=== PATIENT | female | born 1955 | race Caucasian/White ===

== ENCOUNTER 2023-03-11 10:48 | Day surgery (SDC) | payer MEDICARE, OTHER, SELFPAY ==
--- NOTE | 2023-03-11 11:08 | EXP.GEN.HP ---
HPI HPI HPI: Patient is a 68-year-old female with history of dysphagia. She states that she has previously had her esophagus stretched at an outside facility. She states that when she eats chicken it gives me fits . She has symptoms previously consistent with self-limited food impaction. However when she was eating chicken on Saturday evening on 03/09/2023 she had symptoms of esophageal obstruction secondary to food impaction. This persisted. She did not seek medical attention. Ultimately she states that she had been unable to swallow even water and therefore she presented to her primary care provider's office this morning on 03/11/2023. Due to her symptoms of esophageal obstruction secondary to food impaction surgery was contacted. [facility] Disclaimer: The information contained in this section may have been updated after the patient was seen, as this information can be updated by other users. Medical History (Updated 03/11/23 @ 11:11 by Henry Reilly MD) Colon cancer Hypertension IBS (irritable bowel syndrome) Migraine Surgical History (Updated 09/13/22 @ 14:57 by Meg Nair) History of colon resection History of hand surgery History of hip replacement History of tubal ligation Family History (Updated 09/13/22 @ 14:57 by Meg Nair) Diabetes Cancer Social History (Updated 09/13/22 @ 14:58 by Meg Nair) Smoking Status: Never smoker alcohol intake: never current occupational status: retired Travel in the last 8 weeks: None marital status: Meds Home Medications and Allergies Home Medications Medication Instructions Recorded Confirmed Type amlodipine 10 mg tablet 10 mg PO DAILY BP 09/13/22 03/11/23 History dicyclomine 10 mg capsule 10 mg PO QID . 09/13/22 03/11/23 History lisinopril 20 mg tablet 10 mg PO DAILY BP 09/13/22 03/11/23 History potassium chloride 20 mEq/15 mL 20 meq PO DAILY Supplement 09/13/22 03/11/23 History oral liquid ibuprofen 400 mg tablet 400 mg PO Q6H PRN Pain 03/11/23 03/11/23 History omeprazole 10 mg capsule,delayed 10 mg PO DAILY Reflux/Acid reflux 03/11/23 03/11/23 History release tramadol 50 mg tablet 40 mg PO DAILY PRN . 03/11/23 03/11/23 History New Prescriptions to Start Prescriptions: Allergies Allergy/AdvReac Type Severity Reaction Status Date / Time morphine AdvReac Verified 03/11/23 11:05 Exam Constitutional Constitutional: no acute distress *Routine HEENT Exam Head: Present normocephalic Eye: Present EOMI and PERRL ENT: Present mucous membranes moist *Routine Neck Exam Neck: Present supple; Absent lymphadenopathy *Routine Respiratory Exam Respiratory: Present CTA bilaterally *Routine Cardiovascular Exam Cardiovascular: Present RRR *Routine Abdominal Exam Abdominal: Present soft and normoactive bowel sounds; Absent tenderness *Routine Rectal Exam Rectal:: deferred *Routine Genitalia Exam Genitalia:: deferred *Routine Extremities Exam Extremities: Absent cyanosis, clubbing or edema *Routine Skin Exam Skin: Present warm; Absent rash *Routine Neurological Exam Neurological: Present alert and oriented X3 Assessment and Plan *Assessment and plan (1) Esophageal obstruction due to food impaction: Status: Acute Category: Medical Code(s): K22.2 - Esophageal obstruction; T18.128A - Food in esophagus causing other injury, initial encounter Plan Plan to proceed with emergent flexible endoscopy. I explained to her the nature and details of the proposed procedure along with associated risks and expected outcome. I did explain to her that given the long duration of her symptoms that she is at higher risk of perforation as well as the need for more invasive techniques in addition to potential need for transfer for surgical intervention. She understands and agrees to proceed.
[2023-03-11 11:12] VITALS: BP 158/95; PULSE 94; RESP 18; O2SAT 95; BMI 30.3
--- NOTE | 2023-03-11 12:05 | P.PCN_ITS ---
Procedure: Date: 03/11/23 Patient Date of :: 1955 Procedure Performed:: Esophagogastroduodenoscopy for esophageal obstruction secondary to food impaction Indications:: Patient is a 68-year-old female who has had problems with self-limited dysphagia from food impaction in the past. She previously has had her esophagus stretched . She presented to her primary care provider's office this morning on 03/11/2023 with symptoms of persistent esophageal obstruction secondary to food impaction since 03/09/2023. Surgery was contacted and arrangements were made for emergent upper endoscopy. Performing Provider:: Henry Reilly MD Referring Provider:: Neal Gonzalez MD Sedation:: MAC sedation Procedure:: Patient was taken to endoscopy procedure room. She was positioned in lateral decubitus position. Adequate intravenous sedation was achieved with anesthesia titration of propofol. Olympus endoscope was inserted via the oropharynx. Esophagus was cannulated. There were findings of presbyesophagus secondary to likely some esophageal dysmotility. There was some saliva and secretions which were suctioned free. Meat food bolus was encountered impacted at about 30 cm. The endoscope was withdrawn. The E-suction device was secured to the endoscope. Endoscope was reinserted. Advancement of the endoscope with the E-suction was slightly more challenging given the presbyesophagus. It was felt that it was unable to be advanced to the fluid bolus. The endoscope was then withdrawn and plan was made for retrieval using Hinton net. The suction device was removed from the endoscope and the endoscope was reinserted. This time the food bolus had passed into the gastric lumen. The endoscope was easily advanced into the gastric lumen. Retroflexion revealed no evidence of any hiatal hernia. Esop hagus was then once again surveyed and there was no evidence of any residual obstruction and no obvious perforation. There were erosions at the gastroesophageal junction at approximately 34 cm from the incisors due to the food impaction. Stomach was desufflated and the endoscope was withdrawn. Findings:: Presbyesophagus Gastroesophageal junction at approximately 34 cm with food impaction Focal erosive esophagitis at the gastroesophageal junction Recommendations:: Liquid diet for 24 hours. Continue proton pump inhibitors. Complications:: None immediately apparent Estimated blood obtained (mL): 2
[2023-03-11 12:10] VITALS: BP 150/84; PULSE 94; RESP 17; TEMP 36.2; O2SAT 99
[2023-03-11 12:20] VITALS: BP 151/91; PULSE 95; RESP 16; O2SAT 95
[2023-03-11 12:30] VITALS: BP 151/84; PULSE 89; RESP 16; O2SAT 95
[2023-03-11 12:40] VITALS: BP 160/91; PULSE 85; RESP 17; O2SAT 95
== END 2023-03-11 12:40 | disposition home or self-care (01) ==
PROVIDERS: PCP Family Medicine; Visit Provider Surgery
PROC: 0DJ08ZZ Inspection of Upper Intestinal Tract, Via Natural or Artificial Opening Endoscopic (ICD-10-PCS; CPT 43235; principal; 2023-03-11 11:15)
DX: K22.2 Esophageal obstruction (principal); T18.128A Food in esophagus causing other injury, initial encounter
CPT/HCPCS: 43247

== ENCOUNTER 2023-05-03 09:01 | Day surgery (SDC) | payer MEDICARE, SELFPAY ==
[2023-05-02 09:56] VITALS: BMI 31.1
[2023-05-03] VITALS (7 sets, daily range): BP systolic 127–141; BP diastolic 73–89; PULSE 67–92; RESP 18; TEMP 36.2–37.1; O2SAT 93–98
--- NOTE | 2023-05-03 09:57 | EXP.ANES.CKL ---
[facility] Disclaimer: The information contained in this section may have been updated after the patient was seen, as this information can be updated by other users. Medical History Allergies Colon cancer History of COVID-19 Hypertension IBS (irritable bowel syndrome) Migraine Rectal cancer Surgical History History of colon resection History of hand surgery History of hip replacement History of tubal ligation Family History Other Cancer Diabetes Social History Smoking Status: Never smoker alcohol intake: never substance use type: denies use current occupational status: retired Travel in the last 8 weeks: None marital status: caffeine: No [facility] Anesthesia Checklist Patient Identification Patient Identification: Arm Band Structural Data Admitted From: Home Planned Operative Procedure/s: EGD Consent for Planned Operative Procedure(s) Verified: Yes Verified Documents: Surgical Consent and History and Physical NPO Status Verified Time NPO: 00:00 Additional verifications Anesthesia Reactions: No Airway Assessment C-Spine Mobility Assessed: Yes TMJ Mobility Assessed: Yes Dentition: Edentulous Neurological Assessment Level of Consciousness: Awake and Alert Anesthesia Plan Anesthesia Risk discussed: Yes Anesthesia Plan: Verified ASA Class: II Anesthesia Type: MAC
--- NOTE | 2023-05-03 10:14 | EXP.GEN.HP ---
HPI HPI HPI: Patient is a pleasant 68-year-old female who had prior history of food impaction. She has previously had her esophagus stretched . She had presented to her primary care provider's office on 03/11/2023 with symptoms of persistent esophageal obstruction secondary to food impaction for a couple of days. She underwent emergent EGD on 03/11/2023 at which time she was found to have findings of presbyesophagus, gastroesophageal junction at 34 cm with food impaction, focal erosive esophagitis. Plan was for follow-up EGD. [facility] Disclaimer: The information contained in this section may have been updated after the patient was seen, as this information can be updated by other users. Medical History (Updated 05/03/23 @ 10:15 by Henry Reilly MD) Allergies Colon cancer History of COVID-19 Hypertension IBS (irritable bowel syndrome) Migraine Rectal cancer Surgical History History of colon resection History of hand surgery History of hip replacement History of tubal ligation Family History Diabetes Cancer Social History (Updated 05/03/23 @ 09:58 by Mitchell Teague CRNA) Smoking Status: Never smoker alcohol intake: never substance use type: denies use current occupational status: retired Travel in the last 8 weeks: None marital status: caffeine: No Meds Home Medications and Allergies Home Medications Medication Instructions Recorded Confirmed Type amlodipine 10 mg tablet 10 mg PO DAILY BP 09/13/22 05/02/23 History dicyclomine 10 mg capsule 10 mg PO QID . 09/13/22 05/02/23 History lisinopril 20 mg tablet 10 mg PO DAILY BP 09/13/22 05/02/23 History potassium chloride 20 mEq/15 mL 20 meq PO DAILY Supplement 09/13/22 05/02/23 History oral liquid ibuprofen 400 mg tablet 400 mg PO Q6H PRN Pain 03/11/23 05/02/23 History omeprazole 10 mg capsule,delayed 40 mg PO DAILY Reflux/Acid reflux 03/11/23 05/02/23 History release tramadol 50 mg tablet 40 mg PO DAILY PRN . 03/11/23 05/02/23 History New Prescriptions to Start Prescriptions: Allergies Allergy/AdvReac Type Severity Reaction Status Date / Time morphine AdvReac Verified 05/03/23 09:34 Exam Data for Last 24 hours Vital signs and Labs for Last 24 Hours: Temp Pulse Resp BP Pulse Ox 98.8 F 76 18 141/75 H 98 05/03/23 09:35 05/03/23 09:35 05/03/23 09:35 05/03/23 09:35 05/03/23 09:35 I & O for Last 24 hours: Intake & Output 04/30/23 05/01/23 05/02/23 05/03/23 11:59 11:59 11:59 11:59 Weight 170 lb Constitutional Constitutional: no acute distress *Routine HEENT Exam Head: Present normocephalic Eye: Present EOMI and PERRL ENT: Present mucous membranes moist *Routine Neck Exam Neck: Present supple; Absent lymphadenopathy *Routine Respiratory Exam Respiratory: Present CTA bilaterally *Routine Cardiovascular Exam Cardiovascular: Present RRR *Routine Abdominal Exam Abdominal: Present soft and normoactive bowel sounds; Absent tenderness *Routine Rectal Exam Rectal:: deferred *Routine Genitalia Exam Genitalia:: deferred *Routine Extremities Exam Extremities: Absent cyanosis, clubbing or edema *Routine Skin Exam Skin: Present warm; Absent rash *Routine Neurological Exam Neurological: Present alert and oriented X3 Assessment and Plan *Assessment and plan (1) Dysphagia: Status: Acute Category: Medical Code(s): R13.10 - Dysphagia, unspecified Plan EGD with possible dilatation
--- NOTE | 2023-05-03 10:38 | HMH.SCOPE ---
Procedure: Date: 05/03/23 Patient Date of :: 1955 Procedure Performed:: Esophagogastroduodenoscopy with biopsy and dilatation using pneumatic dilator Indications:: Patient is a pleasant 68-year-old female who had prior history of food impaction.? She has previously had her esophagus stretched .? She had presented to her primary care provider's office on 03/11/2023 with symptoms of persistent esophageal obstruction secondary to food impaction for a couple of days.? She underwent emergent EGD on 03/11/2023 at which time she was found to have findings of presbyesophagus, gastroesophageal junction at 34 cm with food impaction, focal erosive esophagitis.? Plan was for follow-up EGD. Performing Provider:: Henry Reilly MD Referring Provider:: Evangelista Infante Sedation:: MAC sedation Procedure:: Patient history was obtained and appropriate physical examination was performed. Patient's medications and allergies were reviewed. Informed consent was obtained after explaining the benefits, alternatives, and risks of the procedure including, but not limited to, bleeding, perforation, missed lesions, and adverse reaction to anesthesia medications. Patient was transported to endoscopy procedure room. Patient was connected to monitoring devices. Throughout the procedure the patient's blood pressure, pulse, and oxygen saturations were monitored continuously. Patient identification and planned procedure were verified by the staff. Patient was positioned in lateral decubitus position. Attention was first turned to upper endoscopy. Olympus endoscope was inserted via the oropharynx. There was some tortuosity to the esophagus consistent with esophageal dysmotility. This seemed more pronounced at the distal esophagus. Gastroesophageal junction was encountered at approximately 34 cm. There was no evidence of any definite Schatzki's ring. Stomach was cannulated and insufflated. There was some minor diffuse gastropathy. There were some prominent regional areas of mucosa in the prepyloric location. Multiple biopsies were obtained. Pylorus was traversed and the duodenum appeared normal. Several biopsies were obtained at the gastroesophageal junction. As previously stated, there did not appear to be significant stricture but more tortuosity at the distal esophagus. However, given her history with ongoing symptoms of dysphagia this was dilated sequentially using the elation balloon dilator to 20 mm. Stomach was desufflated and the endoscope was withdrawn. Findings:: Gastroesophageal junction at 34 cm Findings of probable significant esophageal dysmotility Diffuse gastropathy Prominent hypertrophic prepyloric mucosa, biopsied Recommendations:: Continue medical management. Follow-up on biopsies Complications:: None immediate Estimated blood obtained (mL): 1 Colonoscopy Component Colonoscopy Component Was a colonoscopy performed during today's procedure?: No
== END 2023-05-03 11:30 | disposition home or self-care (01) ==
PROVIDERS: PCP Family Medicine; Visit Provider Surgery
PROC: 0DJ08ZZ Inspection of Upper Intestinal Tract, Via Natural or Artificial Opening Endoscopic (ICD-10-PCS; CPT 43235; principal; 2023-05-03 12:30)
DX: R13.10 Dysphagia, unspecified (principal); K31.9 Disease of stomach and duodenum, unspecified; K29.50 Unspecified chronic gastritis without bleeding; K21.00 Gastro-esophageal reflux disease with esophagitis, without bleeding
CPT/HCPCS: 43239; 43249; 88305; 88342; C1726

== ENCOUNTER 2024-05-04 14:54 | Outpatient (CLI) | payer MEDICARE, MEDICAID, SELFPAY ==
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
== END 2024-05-04 23:59 | disposition home or self-care (01) ==
LOC: RAD 14:55
PROVIDERS: PCP Family Medicine; Visit Provider Nurse Practitioner Family
DX: R22.32 Localized swelling, mass and lump, left upper limb (principal)
CPT/HCPCS: 76882

== ENCOUNTER 2024-05-20 13:15 | Outpatient (CLI) | payer MEDICARE, MEDICAID, SELFPAY ==
--- NOTE | 2024-05-20 14:31 | MM_ITS ---
PROCEDURE INFORMATION: Exam: MG Bilateral Screening 3D Mammography Exam date and time: 05/20/2024 2:22 PM Age: 69 years old Clinical indication: Screening examination TECHNIQUE: Imaging protocol: Bilateral Screening tomosynthesis and 2D mammography including computer-aided detection (CAD) when performed. COMPARISON: MG MM MAMMO DIGITAL BONY SCREEN BILAT 05/16/2023 1:36 PM FINDINGS: MAMMOGRAPHY: Breast composition: There are scattered areas of fibroglandular density. Mass: None. Architectural distortion: None. Calcifications: No suspicious calcifications. Asymmetric density: None. Skin thickening: None. Axillary adenopathy: None. IMPRESSION: No mammographic evidence of malignancy. Annual screening is recommended unless otherwise clinically indicated. ASSESSMENT: BI-RADS Category 1: Negative
--- NOTE | 2024-05-20 14:31 | XR_ITS ---
FINAL REPORT TECHNIQUE: Bone densitometry calculations of the lumbar spine and left hip were obtained. CLINICAL HISTORY: OSTEOPENIA FINDINGS: Using L1-4, the bone mineral density of the spine is 0.927 g/cm2, corresponding to T-score of -1.1 but is likely falsely elevated secondary to hypertrophic changes. Using the 1/3 radius, the bone mineral density of the radius is 0.454 g/cm2, corresponding to a T-score of -4.0. NOTE: T-score: Standard deviation compared with peak bone mass of young adult mean. *Following the recommendations of the International Society of Bone Densitometry, classification of hip BMD is based on the lower of two T-scores; total hip or femoral neck. IMPRESSION: Osteoporosis: Lowest T-score is at or below -2.5. This patient's T-score meets the World Health Organization criteria for osteoporosis. Reviewed, Interpreted and Dictated by Henry Monge III, MD Transcribed by Eleonora Wheeler Authenticated and [facility]
[2024-05-20 14:59] LABS: Alanine Aminotransferase 19 U/L (12-78); Albumin Level 3.9 g/dl (3.5-5.0); Albumin/Globulin Ratio 1.3 (1.1-1.8); Alkaline Phosphatase 77 U/L (38-126); Anion Gap 6.5 mEq/L (5-15); Aspartate Amino Transferase 31 U/L (14-36); Bilirubin,Total 0.5 mg/dl (0.2-1.3); Blood Urea Nitrogen 18 mg/dl (7-17); Calcium 9.2 mg/dl (8.4-10.2); Carbon Dioxide 30 mmol/L (22.0-30.0); Chloride 106 mmol/L (98-107); Chol/HDL Ratio 4.5 (1-3.5); Cholesterol 264 mg/dl (140-200); Estimated Glomerular Filt Rate 83 ml/min (>60); GFR (African American) 100 ML/MIN (>60); Globulin 3.1 g/dL (1.3-3.2); Glucose 88 mg/dl (74-100); HDL Cholesterol 59 mg/dl (40-60); Potassium 3.5 mmoL/L (3.5-5.1); Sodium 139 mmol/L (136-145); Triglycerides 124 mg/dl (30-150); VLDL Cholesterol 25 mg/dL (0-40)
[2024-05-20 15:10] LABS: Direct LDL Cholesterol 134.64 mg/dL (100-129)
== END 2024-05-20 23:59 | disposition home or self-care (01) ==
PROVIDERS: PCP Family Medicine; Visit Provider Nurse Practitioner Family
DX: I10 Essential (primary) hypertension (principal); E78.5 Hyperlipidemia, unspecified; Z12.31 Encounter for screening mammogram for malignant neoplasm of breast; M85.89 Other specified disorders of bone density and structure, multiple sites
CPT/HCPCS: 36415; 77063; 77067; 77080; 80053; 80061

== ENCOUNTER 2025-05-07 07:17 | Day surgery (SDC) | payer MEDICARE, MEDICAID, SELFPAY ==
[2025-05-03 16:11] VITALS: BMI 32.0
--- NOTE | 2025-05-07 05:47 | EXP.GEN.HP ---
HPI HPI HPI: Patient is a 70-year-old female from [place]. She presents for colonoscopy. I had previously seen her for esophageal obstruction secondary to food impaction and she required emergent EGD on 03/11/2023. She did have a follow-up EGD as an outpatient on 05/03/2023 which revealed findings of significant esophageal dysmotility. She has a history of colon cancer. She states that she had colon cancer diagnosed seemingly at the rectosigmoid region in 2019 on colonoscopy at outside facility. Exact details are unknown. She states that she was told that this was about the size of a pea and in the rectum invading into the colon. She did undergo apparent resection. Details are unknown. She subsequently has had a colonoscopy at outside facility which was reportedly unremarkable. Details are unknown. Presents for surveillance colonoscopy. She does have a family history of colon cancer in both her maternal grandparents. Primary care provider Evangelista Infante MD. [facility] Disclaimer: The information contained in this section may have been updated after the patient was seen, as this information can be updated by other users. Medical History History of COVID-19 Allergies Rectal cancer IBS (irritable bowel syndrome) Colon cancer Migraine Hypertension Surgical History History of hand surgery History of tubal ligation History of hip replacement History of colon resection Family History Other Cancer Diabetes Social History Smoking Status: Never smoker alcohol intake: never substance use type: denies use current occupational status: retired Travel in the last 8 weeks?: None marital status: caffeine: No Have you lived/traveled outside US in past 30 days?: No Contact w/someone who lives/traveled outside US past 30 days?: No Exposure to someone with infectious disease in past 14 days?: No Do you have a fever (greater than 100.4 F or 38 C)?: No Have you tested positive for COVID-19?: No Exposed to someone with COVID-19 in past 14 days?: No Do you have a sore throat?: No Do you have a cough?: No Do you have any weakness?: No Do you have any diarrhea?: No Are you experiencing any unusual bleeding?: No Do you have any muscle aches/pain?: No Do you have any abdominal pain?: No Are you experiencing loss of taste or smell?: No Meds Home Medications and Allergies Home Medications ?Medication ?Instructions ?Recorded ?Confirmed ?Type amlodipine 10 mg tablet 10 mg PO DAILY BP 09/13/22 05/07/25 History dicyclomine 10 mg capsule 10 mg PO QID . 09/13/22 05/07/25 History lisinopril 20 mg tablet 10 mg PO DAILY BP 09/13/22 05/07/25 History potassium chloride 20 mEq/15 mL 20 meq PO DAILY Supplement 09/13/22 05/07/25 History oral liquid ibuprofen 400 mg tablet 800 mg PO Q6H PRN Pain 03/11/23 05/07/25 History omeprazole 10 mg capsule,delayed 20 mg PO DAILY Reflux/Acid reflux 03/11/23 05/07/25 History release tramadol 50 mg tablet 40 mg PO DAILY PRN . 03/11/23 05/07/25 History multivitamin 300 cap PO DAILY 05/07/25 05/07/25 History New Prescriptions to Start Prescriptions: Allergies Allergy/AdvReac Type Severity Reaction Status Date / Time morphine AdvReac Chest Pain Verified 05/07/25 07:33 Exam Data for Last 24 hours I & O for Last 24 hours: Intake & Output 05/04/25 05/05/25 05/06/25 05/07/25 11:59 11:59 11:59 11:59 Weight 175 lb Constitutional Constitutional: no acute distress *Routine HEENT Exam Head: Present normocephalic Eye: Present EOMI and PERRL ENT: Present mucous membranes moist *Routine Neck Exam Neck: Present supple; Absent lymphadenopathy *Routine Respiratory Exam Respiratory: Present CTA bilaterally *Routine Cardiovascular Exam Cardiovascular: Present RRR *Routine Abdominal Exam Abdominal: Present soft and normoactive bowel sounds; Absent tenderness *Routine Rectal Exam Rectal:: deferred *Routine Genitalia Exam Genitalia:: deferred *Routine Extremities Exam Extremities: Absent cyanosis, clubbing or edema *Routine Skin Exam Skin: Present warm; Absent rash *Routine Neurological Exam Neurological: Present alert and oriented X3 Assessment and Plan *Assessment and plan (1) History of colon cancer: Status: Acute Category: Medical Code(s): Z85.038 - Personal history of other malignant neoplasm of large intestine
[2025-05-07 07:37] VITALS: BP 140/72; PULSE 67; RESP 16; TEMP 36.6; O2SAT 96
[2025-05-07] MEDS: LACTATED RINGERS 1000ML 1,000 ML 50 ML IV (07:52)
--- NOTE | 2025-05-07 08:08 | EXP.ANES.CKL ---
[facility] Disclaimer: The information contained in this section may have been updated after the patient was seen, as this information can be updated by other users. Medical History History of COVID-19 Allergies Rectal cancer IBS (irritable bowel syndrome) Colon cancer Migraine Hypertension Surgical History History of hand surgery History of tubal ligation History of hip replacement History of colon resection Family History Other Cancer Diabetes Social History Smoking Status: Never smoker alcohol intake: never substance use type: denies use current occupational status: retired Travel in the last 8 weeks?: None marital status: caffeine: No Have you lived/traveled outside US in past 30 days?: No Contact w/someone who lives/traveled outside US past 30 days?: No Exposure to someone with infectious disease in past 14 days?: No Do you have a fever (greater than 100.4 F or 38 C)?: No Have you tested positive for COVID-19?: No Exposed to someone with COVID-19 in past 14 days?: No Do you have a sore throat?: No Do you have a cough?: No Do you have any weakness?: No Do you have any diarrhea?: No Are you experiencing any unusual bleeding?: No Do you have any muscle aches/pain?: No Do you have any abdominal pain?: No Are you experiencing loss of taste or smell?: No [facility] Anesthesia Checklist Patient Identification Patient Identification: Arm Band Structural Data Admitted From: Home Planned Operative Procedure/s: Colonoscopy Consent for Planned Operative Procedure(s) Verified: Yes Verified Documents: Surgical Consent and History and Physical NPO Status Verified Time NPO: 00:00 Additional verifications Anesthesia Reactions: No Airway Assessment Mallampati Score:: Class II C-Spine Mobility Assessed: Yes TMJ Mobility Assessed: Yes Dentition: Dentures-good fit Neurological Assessment Level of Consciousness: Awake, Alert and Appropriate Anesthesia Plan Anesthesia Risk discussed: Yes Anesthesia Plan: Verified ASA Class: II Anesthesia Type: MAC
[2025-05-07 08:52] VITALS: BP 98/53; PULSE 69; RESP 16; TEMP 36.3; O2SAT 93
--- NOTE | 2025-05-07 08:52 | HMH.SCOPE ---
Procedure: Date: 05/07/25 Patient Date of :: 1955 Procedure Performed:: Total colonoscopy with numerous polypectomy by a variety of techniques and injection Indications:: Patient is a 70-year-old female from [place]. She presents for colonoscopy. I had previously seen her for esophageal obstruction secondary to food impaction and she required emergent EGD on 03/11/2023. She did have a follow-up EGD as an outpatient on 05/03/2023 which revealed findings of significant esophageal dysmotility. She has a history of colon cancer. She states that she had colon cancer diagnosed seemingly at the rectosigmoid region in 2019 on colonoscopy at outside facility. Exact details are unknown. She states that she was told that this was about the size of a pea and in the rectum invading into the colon. She did undergo apparent resection. Details are unknown. She subsequently has had a colonoscopy at outside facility which was reportedly unremarkable. Details are unknown. Presents for surveillance colonoscopy. She does have a family history of colon cancer in both her maternal grandparents. Primary care provider Evangelista Infante MD. Performing Provider:: Henry Reilly MD Referring Provider:: Neal Gonzalez MD Sedation:: MAC sedation Procedure:: Patient history was obtained and appropriate physical examination was performed. Patient's medications and allergies were reviewed. Informed consent was obtained after explaining the benefits, alternatives, and risks of the procedure including, but not limited to, bleeding, perforation, missed lesions, and adverse reaction to anesthesia medications. Patient was transported to endoscopy procedure room. Patient was connected to monitoring devices. Throughout the procedure the patient's blood pressure, pulse, and oxygen saturations were monitored continuously. Patient identification and planned procedure were verified by the staff. Patient was positioned in lateral decubitus position. Digital anorectal exam was performed. Variable stiffness Olympus colonoscope was inserted and advanced under direct visualization to the cecum. Adequacy of the colonic preparation was noted. The colonoscope was advanced a short distance into the terminal ileum. The colonoscope was then slowly withdrawn while carefully examining the color, texture, anatomy, and integrity of the mucosoa circumferentially. Within the rectum retroflexion was performed. Colonoscope was then withdrawn. Impression: Colonic preparation was good. Colonoscope was advanced to the ileocecal valve. She was noted to have moderate adenomatous appearing polyp distal to the ileocecal valve which was removed with cold cutting snare. There was another ascending colon polyp in this general region which required submucosal injection of Bianca view and then removal with cold snare. These both were sent as ascending colon polyp x 2. Just distal to this still in the ascending colon there was a moderately large sessile polyp. This required submucosal injection of Bianca view circumferentially to raise the polyp and then polypectomy was performed with 13 mm hot snare. Reinsertion of the colonoscope revealed a small polyp within the cecum removed in a piecemeal fashion using biopsy forceps. In the descending colon in the general region there were 3 adenomatous appearing polyps removed with cold snare. At approximately 40 cm from the incisors there was an irregular appearing lesion with some contracture and scarring. It was unclear if this was postsurgical initially or polypoid or a sessile masslike lesion. Bianca view was injected to help delineate the boundaries. Multiple biopsies were obtained as this lesion was not amenable to endoscopic removal with traditional techniques. This area was marked with limited amount of Loreta ink via submucosal injection as this may require surgical resection. There was noted to be a free-floating polyp in the descending colon this was suctioned free. It was unclear as to where this originated and therefore it was sent as random polyp . The definite end-to-end anastomosis was noted with visible staple and circumferential anastomotic scar at approximately 10 cm from the anal verge. Colonoscope was withdrawn. . Findings:: Complex polyps as noted above. She had a total of 7 polyps in addition to this sigmoid lesion at 40 cm Irregular contracted lesion of uncertain character at 40 cm, possibly adenomatous or neoplastic, biopsied and marked with Loreta ink Recommendations:: Definitive management will be based on polyp pathology and most particularly the biopsies of the lesion at 40 cm. This could be adenomatous or neoplastic and if adenomatous could be amenable to endoscopic submucosal resection at tertiary facility versus possible repeat colon resection at tertiary facility by colorectal surgery. Definitive care will be based on final pathology. If biopsies of sigmoid lesion are surprisingly benign may repeat flexible sigmoidoscopy in several months. Complications:: None immediately apparent Estimated blood obtained (mL): 2 Colonoscopy Component Colonoscopy Component Was a colonoscopy performed during today's procedure?: Yes Recommended follow up colonoscopy of at least 10 years?: No If no, follow up colonoscopy recommended in ___ years?: See above Reason for not recommending >/= 10 yr follow-up interval?: See above
[2025-05-07 09:01] VITALS: BP 98/66; PULSE 65; RESP 16; O2SAT 94
[2025-05-07 09:12] VITALS: BP 128/86; PULSE 61; RESP 16; TEMP 36.3; O2SAT 96
[2025-05-07 09:22] VITALS: BP 125/80; PULSE 60; RESP 16; TEMP 36.3; O2SAT 96
== END 2025-05-07 09:41 | disposition home or self-care (01) ==
PROVIDERS: PCP Family Medicine; Visit Provider Surgery
PROC: 0DJD8ZZ Inspection of Lower Intestinal Tract, Via Natural or Artificial Opening Endoscopic (ICD-10-PCS; principal; 2025-05-07 08:30)
DX: Z12.11 Encounter for screening for malignant neoplasm of colon (principal); D12.2 Benign neoplasm of ascending colon; D12.0 Benign neoplasm of cecum; D12.4 Benign neoplasm of descending colon; D12.5 Benign neoplasm of sigmoid colon; I10 Essential (primary) hypertension; K58.9 Irritable bowel syndrome, unspecified; Z85.048 Personal history of other malignant neoplasm of rectum, rectosigmoid junction, and anus; Z86.16 Personal history of COVID-19; Z79.899 Other long term (current) drug therapy; Z88.5 Allergy status to narcotic agent; Z80.0 Family history of malignant neoplasm of digestive organs
CPT/HCPCS: 45380; 45381; 45385; 88305; J2003; J2704; J7120

== ENCOUNTER 2025-05-20 15:33 | Outpatient (CLI) | payer MEDICARE, MEDICAID, SELFPAY ==
--- OUTSIDE RECORDS SUMMARY | 2025-04-04 16:15 | XMS_ITS | Encounter Summary ---
Author Organization [facility] [place] [place] [address] Care Team Providers Care Material Stockkeeper Yard Name Role Phone Benita Infante Primary Care Provider [phone] Dennis Mak MD Unavailable [phone] Michaela Palacio MD Unavailable [phone] Reason for Visit * Reason Comments Sore Throat sore throat, cough c ongestion, sinus pressure, mostly for ankle pain started hurting 4 days ago Encounter Details Date Type Department Care Team (Late st Contact Info) Description 04/04/2025 4:15 PM EDT Office Visit [facility] [address] [place] [phone] Tim Mcgee MD [address] [place] [address] Acute right ankle pain (Primary Dx); Foot pain, right; Acute non-recurrent maxillary sinusitis Social History Tobacco Use Types Packs/Day Years Used Date Smoking Tobacco: Never Smokeless Tobacco: Never Alcohol Use Standard Drinks/Week Comments No 0 (1 standard drink = 0.6 oz pur e alcohol) Comments No Sex and Gender Information Value Date Recorded Sex Assigned at Not on file Legal Sex Female 4:54 AM EDT Gender Identity Not on file Sexual Orientation Not on file documented as of this encounter Last Filed Vital Signs Vital Sign Reading Time Taken Comments Blood Pressure 158/96 04/04/2025 4:27 PM EDT Pulse 78 04/04/2025 4:27 PM EDT Temperature 36.7 C (98 F) 04/04/2025 4:27 PM EDT Respiratory Rate 16 04/04/2025 4:27 PM EDT Oxygen Saturation 94% 04/04/2025 4:27 PM EDT Inhaled Oxygen Concentration - - Weight 80.7 kg (178 lb) 04/04/2025 4:27 PM EDT Height 157.5 cm (5' 2 ) 04/04/2025 4:27 PM EDT Body Mass Index 32.56 04/04/2025 4:27 PM EDT documented in this encounter Functional Status * Is the person deaf or does he/she have serious difficulty hearing? Answer Date of Assessment Author No 05/20/2019 10:02 AM Macie Ag RN * Is the person blind or does he/she have serious difficulty seeing even when wearing glasses? Answer Date of Assessment Author No 05/20/2019 10:02 AM Macie Ag RN * Does this person have serious difficulty walking or climbing stairs? Answer Date of Assessment Author No 05/20/2019 10:02 AM Macie Ag RN * Does this person have difficulty dressing or bathing? Answer Date of Assessment Author No 05/20/2019 10:02 AM Macie Ag RN * Because of a physical, mental or emotional condition, does this person have difficulty doing errands alone such as visiting a doctor's office or shopping? Answer Date of Assessment Author No 05/20/2019 10:02 AM Macie Ag RN documented as of this encounter Mental Status * Because of a physical, mental or emotional condition, does this person have serious difficulty concentrating, remembering or making decisions? Answer Entry Date Author No 05/20/2019 10:02 AM Macie Ag RN documented in this encounter Patient Instructions * Attachments The following attachments cannot be sent through Care Everywhere. * Achilles Tendinopathy Exercises (Solomon Islander) * Sinusitis in adults ([place] Islander) * How to Do a Nasal Rinse (Sol[place] Islander) documented in this encounter Ordered Prescriptions Prescription Sig Dispense Quantity Refills Last Filled Start Date End Date fluticasone propionate (FLONASE) 50 mcg/actuation Nasl Sullivan, Suspension 1 Sullivan by Nasal route daily. 9.9 mL 04/04/2025 amoxicillin-clavul anate (AUGMENTIN) 875-125 mg Oral Tablet Take 1 Tablet by mouth 2 times daily for 10 days. 20 Tablet 04/04/2025 04/14/2025 fluticasone propionate (FLONASE) 50 mcg/actuation Nasl Sullivan, Suspension 1 Sullivan by Nasal route daily. 9.9 mL 04/04/2025 04/04/2025 amoxicillin-clavul anate (AUGMENTIN) 875-125 mg Oral Tablet Take 1 Tablet by mouth 2 times daily for 10 days. 20 Tablet 04/04/2025 04/04/2025 documented in this encounter Progress Notes * Tim Mcgee MD - 04/04/2025 4:15 PM EDT Subjective Subjective: Patient ID: Khushboo Thompson is a 70 y.o. female. Chief Complaint Patient presents with Sore Throat sore throat, cough congestion, sinus pressure, mostly for ankle pain started hurting 4 days ago HPI: 70-year-old female history of rheumatoid arthritis comes in with acute right foot and ankle pain. Foot pain along with he lateral midfoot and tenderness bilateral ankles. She is also noted tenderness in the posterior foot as well. She also was noticed several days of nasal sinus congestion with postnasal drainage. Patients past medical, family and social histories were reviewed and updated. There were no changesexcept as noted. Review of Systems Constitutional: Negative for activity change, chills, fatigue and fever. HENT: Positive for sore throat. Negative for congestion, ear discharge, ear pain, postnasal drip and trouble swallowing. Eyes: Negative for discharge, redness and itching. Respiratory: Positive for cough. Gastrointestinal: Negative for nausea and vomiting. Musculoskeletal: Positive for gait problem and joint swelling. Skin: Negative for rash and wound. Neurological: Negative for dizziness and headaches. Objective Objective: Vitals: 04/04/25 1627 BP: 158/96 Pulse: 78 Resp: 16 Temp: 98 ??F (36.7 ??C) TempSrc: Oral SpO2: 94% Weight: 178 lb (80.7 kg) Height: 5' 2 (1.575 m) Body mass index is 32.56 kg/m??. Physical Exam Vitals and nursing note reviewed. Constitutional: Appearance: Normal appearance. HENT: Right Ear: Tympanic membrane normal. Left Ear: Tympanic membrane normal. Nose: Congestion present. Right Sinus: Maxillary sinus tenderness present. Left Sinus: Maxillary sinus tenderness present. Mouth/Throat: Mouth: Mucous membranes are moist. Eyes: Conjunctiva/sclera: Conjunctivae normal. Cardiovascular: Rate and Rhythm: Normal rate and regular rhythm. Pulmonary: Effort: Pulmonary effort is normal. Breath sounds: Normal breath sounds. Musculoskeletal: Cervical back: Normal range of motion and neck supple. Comments: Right foot ankle: Tenderness over the midshaft of the fifth metatarsal as well as the anterior talofibular ligament and posterior calcaneus along the Achilles tendon insertion. Skin: General: Skin is warm and dry. Neurological: Mental Status: She is alert. Psychiatric: Mood and Affect: Mood normal. Behavior: Behavior normal. . Assessment and Plan: Khushboo was seen today for sore throat. Diagnoses and all orders for this visit: Acute right ankle pain - XR ANKLE RIGHT AP LATERAL AND OBLIQUE; Future Foot pain, right - XR FOOT RIGHT AP LATERAL AND OBLIQUE; Future Acute non-recurrent maxillary sinusitis Other orders - Discontinue: amoxicillin-clavulanate (AUGMENTIN) 875-125 mg Oral Tablet; Take 1 Tablet by mouth 2times daily for 10 days. - Discontinue: fluticasone propionate (FLONASE) 50 mcg/actuation Nasl Sullivan, Suspension; 1 Sullivan byNasal route daily. - amoxicillin-clavulanate (AUGMENTIN) 875-125 mg Oral Tablet; Take 1 Tablet by mouth 2 times daily for 10 days. - fluticasone propionate (FLONASE) 50 mcg/actuation Nasl Sullivan, Suspension; 1 Sullivan by Nasal route daily. Patient with rheumatoid arthritis she does have pain along the right lateral midshaft of the fifth metatarsal will send for x-ray. Tenderness over the anterior talofibular ligament we will follow-up on ankle x-ray as well. Patient likely bacterial sinusitis will start antibiotics will trial Flonasenasal spray. Recommend saline nasal rinses as needed. Follow up with PCP if symptoms fail to improve documented in this encounter Miscellaneous Notes * Addendum Note - Tim Mcgee MD - 04/04/2025 4:15 PM EDTAddended by: TIM MCGEE on: 04/04/2025 04:51 PM Modules accepted: Orders * Addendum Note - Tim Mcgee MD - 04/04/2025 4:15 PM EDTAddended by: TIM MCGEE on: 04/04/2025 04:51 PM Modules accepted: Level of Service * Addendum Note - Tim Mcgee MD - 04/04/2025 4:15 PM EDTAddended by: TIM MCGEE on: 04/04/2025 04:55 PM Modules accepted: Orders documented in this encounter Plan of Treatment Upcoming Encounters Date Type Department Care Team (Late st Contact Info) Description 08/05/2025 2:00 PM EDT Office Visit [facility] [address] [place] [address] Michaela Palacio MD [address] [place] [address] documented as of this encounter Results * XR FOOT RIGHT AP LATERAL AND OBLIQUE (04/04/2025 5:43 PM EDT) Anatomical Region Laterality Modality Foot Radiographic Allyssa ging 04/04/2025 5:43 PM EDT Impressions 04/04/2025 5:57 PM EDT No definite acute finding.- Note: Radiology results need to be interpreted within a comprehensive clinical context. If you have questions about the radiology report, please contact the office of the ordering clinician. Narrative 04/04/2025 5:57 PM EDT XR FOOT RIGHT AP LATERAL AND OBLIQUE, 04/04/2025 5:43 PM CLINICAL HISTORY: M79.671-Pain in right [id number]-51-CM COMPARISON: None. PROCEDURE COMMENTS: XR FOOT RIGHT AP LATERAL AND OBLIQUE FINDINGS: No definite acute fracture or malalignment. First MTP arthrodesis with screws. Chronic appearing deformity of the third proximal phalanx. Mild soft tissue edema. Procedure Note Jeremiah Welch MD - 04/04/2025 XR FOOT RIGHT AP LATERAL AND OBLIQUE, 04/04/2025 5:43 PM CLINICAL HISTORY: M79.671-Pain in right [id number]-37-CM COMPARISON: None. PROCEDURE COMMENTS: XR FOOT RIGHT AP LATERAL AND OBLIQUE FINDINGS: No definite acute fracture or malalignment. First MTP arthrodesis withscrews. Chronic appearing deformity of the third proximal phalanx. Mild soft tissue edema. IMPRESSION: No definite acute finding.- Note: Radiology results need to be interpreted within a comprehensiveclinical context. If you have questions about the radiology report, please contactthe office of the ordering clinician. Tim Mcgee MD [facility] ORDERA BLES Final Result * XR ANKLE RIGHT AP LATERAL AND OBLIQUE (04/04/2025 5:43 PM EDT) Anatomical Region Laterality Modality Ankle Radiographic Allyssa ging 04/04/2025 5:43 PM EDT Impressions 04/04/2025 5:54 PM EDT No acute osseous abnormality. - Note: Radiology results need to be interpreted within a comprehensive clinical context. If you have questions about the radiology report, please contact the office of the ordering clinician. Narrative 04/04/2025 5:54 PM EDT XR ANKLE RIGHT AP LATERAL AND OBLIQUE, 04/04/2025 5:43 PM CLINICAL HISTORY: M25.571-Pain in right ankle and joints of right [id number]-DQA-15-CM COMPARISON: None. PROCEDURE COMMENTS: XR ANKLE RIGHT AP LATERAL AND OBLIQUE FINDINGS: No acute fracture or malalignment. Soft tissue swelling around the ankle greatest anteromedially. Procedure Note Jeremiah Welch MD - 04/04/2025 XR ANKLE RIGHT AP LATERAL AND OBLIQUE, 04/04/2025 5:43 PM CLINICAL HISTORY: M25.571-Pain in right ankle and joints of right [id number]-WVH-71-CM COMPARISON: None. PROCEDURE COMMENTS: XR ANKLE RIGHT AP LATERAL AND OBLIQUE FINDINGS: No acute fracture or malalignment. Soft tissue swelling around the ankle greatest anteromedially. IMPRESSION: No acute osseous abnormality. - Note: Radiology results need to be interpreted within a comprehensiveclinical context. If you have questions about the radiology report, please contactthe office of the ordering clinician. us Tim Mcgee MD [facility] ORDERA BLES Final Result documented in this encounter Visit Diagnoses Diagnosis Acute right ankle pain- Primary Foot pain, right Pain in limb Acute non-recurrent maxillary sinusitis Acute right ankle pain Foot pain, right Pain in limb documented in this encounter Discontinued Medications Medication Sig Discontinue Reason Start Date End Da te amoxicillin-clavulanate (AUGMENTIN) 875-125 mg Oral Tablet Take 1 Tablet by mouth 2 times daily for 10 days. 04/04/2025 04/04/2025 fluticasone propionate (FLONASE) 50 mcg/actuation Nasl Sullivan, Suspension 1 Sullivan by Nasal route daily. 04/04/2025 04/04/2025 documented as of this encounter Care Teams Material Stockkeeper Yard Relationship Specialty Start Date End Date Benita Infante [facility] [address] [facility] [place] [address] PCP - General 07/10/10 Dennis Mak MD [address] [place] [address] Internal Medicine-Gastroenterology 07/14/13 [place] [address] [place] [phone] Internal Medicine-Rheumatology 02/20/23 documented as of this encounter
--- OUTSIDE RECORDS SUMMARY | 2025-04-04 17:15 | XMS_ITS | Encounter Summary ---
Author Organization [facility] [place] [address] Care Team Providers Care Professional Builder Name Role Phone Benita Infante Primary Care Provider [phone] Dennis Mak MD Unavailable [phone] Michaela Palacio MD Unavailable [phone] Encounter Details Date Type Department Care Team (Latest Contact Info) Description 04/04/2025 5:15 PM EDT - 04/04/2025 11:59 PM EDT Hospital Encounter [facility] [address] [place] [address] Acute right ankle pain; Foot pain, right Discharge Disposition: Home or Self Care Social History Tobacco Use Types Packs/Day Years [...] on file documented as of this encounter Functional Status * Is the person deaf or does he/she have serious difficulty hearing? Answer Date of Assessment Author No 05/20/2019 10:02 AM EDT Macie Clements RN * Is the person blind or [...] Macie Ag RN documented in this encounter Medications at Time of Discharge amLODIPine (NORVASC) 10 mg Oral Tablet Take 10 mg by mouth nightly. 11/14/2021 atorvastatin (LIPITOR) 10 mg Oral Tablet Take 10 mg by mouth daily. 11/20/2023 Biotin 10 mg Oral Tablet Take by mouth daily. butalbital-acetam inophen-caff 50-325-40 mg Oral Capsule 01/27/2025 calcium acetate,phosphat bind, (PHOSLO) 667 mg Oral Capsule Take by mouth 3 times daily (with meals). CANNABIDIOL, CBD, EXTRACT ORAL Take 1,500 mg by mouth. Hyb-Njsrkaldcr-Wy etaminop-Caf 40-566-19-30 mg Oral Capsule Take by mouth. cyanocobalamin 1,000 mcg Oral Tablet Take 1,000 mcg by mouth daily. dicyclomine (BENTYL) 10 mg Oral Capsule TAKE 1 CAPSULE BY MOUTH 4 TIMES A DAY NEEDED 07/30/2022 fluticasone propionate (FLONASE) 50 mcg/actuation Nasl Marvin, Suspension 1 Marvin by Nasal route daily. 9.9 mL 04/04/2025 folic acid (FOLVITE) 800 mcg Oral Tablet Take 800 mcg by mouth daily. 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 180 Tablet 1 08/10/2024 lisinopriL (PRINIVIL;ZESTRIL ) 10 mg Oral Tablet Take by mouth every morning. Melatonin 3 mg Oral Tablet Take 1 Tab by mouth nightly. omeprazole (PRILOSEC) 20 mg Oral Capsule, Delayed Release(E.C.)Erica cations:Rheumatoi d arthritis of multiple sites 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 (HCC) Take 1 Capsule by mouth daily. 90 Capsule 1 08/10/2024 potassium chloride (KAYCIEL) 20 mEq/15 mL Oral Liquid 20 mEq. 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 90 Tablet 1 03/09/2025 tofacitinib (XELJANZ XR) 11 mg Oral Tablet Sustained Release 24 hrIndications:Rhe umatoid arthritis of multiple sites 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 (HCC),Drug therapy Take 1 Tablet by mouth daily. 90 Tablet 1 02/04/2025 traMADoL (ULTRAM) 50 mg Oral TabletIndications :Rheumatoid arthritis of multiple sites 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 (HCC),Primary generalized (osteo)arthritis Take 1 Tablet by mouth 2 times daily as needed for Pain (1-5 moderate pain or breakthrough). 60 Tablet 2 08/10/2024 UNABLE TO FIND Vitamin D3 5000 IU QD UNABLE TO FIND Glucosamine + Chondrotin + MSM QD UNABLE TO FIND Take 600 mg by mouth daily. Calcium vitamin E 400 unit capsule Take 450 Units by mouth daily. amoxicillin-clavu lanate (AUGMENTIN) 875-125 mg Oral Tablet Take 1 Tablet by mouth 2 times daily for 10 days. 20 Tablet 04/04/2025 documented as of this encounter Discharge Disposition Disposition Code Departure Means Destination Home or Self Care documented in this encounter Plan of Treatment Upcoming Encounters Date Type Department Care Team (Late st Contact Info) Description 08/05/2025 2:00 PM EDT Office Visit [facility] [address] [place] [address] Michaela Palacio MD [address] [place] [address] documented as of this encounter Procedures Procedure Name Priority Date/Time Associated Diagnosis Comments XR FOOT RIGHT AP LATERAL AND OBLIQUE STAT 04/04/2025 5:43 PM EDT Foot pain, right XR ANKLE RIGHT AP LATERAL AND OBLIQUE STAT 04/04/2025 5:43 PM EDT Acute right ankle pain documented in this encounter Results * XR FOOT RIGHT [...] 5:43 PM CLINICAL HISTORY: M79.671-Pain in right [id number]-01-CM COMPARISON: None. PROCEDURE COMMENTS: XR FOOT RIGHT AP LATERAL AND OBLIQUE FINDINGS: No definite acute fracture or malalignment. First MTP arthrodesis with screws. Chronic appearing deformity of the third proximal phalanx. Mild soft tissue edema. Procedure Note Jeremiah Welch MD - 04/04/2025 XR FOOT RIGHT AP LATERAL AND OBLIQUE, 04/04/2025 5:43 PM CLINICAL HISTORY: M79.671-Pain in right [id number]-XKR-83-CM COMPARISON: None. PROCEDURE COMMENTS: XR FOOT RIGHT [...] the ordering clinician. us Tim Mcgee MD [facility] DIAGNOSTIC IMAGING ORDERA BLES Final Result * [...] in right ankle and joints of right fpwn-XOJ-13-CM COMPARISON: None. PROCEDURE COMMENTS: XR ANKLE RIGHT AP LATERAL AND OBLIQUE FINDINGS: No acute fracture or malalignment. Soft tissue swelling around the ankle greatest anteromedially. Procedure Note Jeremiah Welch MD - 04/04/2025 XR ANKLE RIGHT AP LATERAL AND OBLIQUE, 04/04/2025 5:43 PM CLINICAL HISTORY: M25.571-Pain in right ankle and joints of right [id number]-XOR-78-CM COMPARISON: None. PROCEDURE COMMENTS: XR ANKLE RIGHT AP LATERAL AND OBLIQUE FINDINGS: No acute fracture or malalignment. Soft tissue swelling around the ankle greatest anteromedially. IMPRESSION: No acute osseous abnormality. - Note: Radiology results need to be interpreted within a comprehensiveclinical context. If you have questions about the radiology report, please contactthe office of the ordering clinician. us Tim [facility] ORDERA BLES Final Result documented in this encounter Visit Diagnoses Diagnosis Acute right ankle pain Foot pain, right Pain in limb documented in this encounter Care Teams Professional Builder Relationship Specialty Start Date End Date Benita Infante [address] [place], [place] [address] PCP - General 07/10/10 Dennis Mak MD [address] [place], [place] [address] Internal Medicine-Gastroenterology 07/14/13 Michaela Palacio MD [address] [place] [phone] Internal Medicine-Rheumatology 02/20/23 documented as of this encounter
--- NOTE | 2025-05-20 15:35 | MM_ITS ---
PROCEDURE INFORMATION: Exam: MG Bilateral Screening 3D Mammography Exam date and time: 05/20/2025 3:37 PM Age: 70 years old Clinical indication: Screening examination. Her sister had breast cancer at age 40. TECHNIQUE: Imaging protocol: Bilateral Screening tomosynthesis and 2D mammography including computer-aided detection (CAD) when performed. COMPARISON: 1. MG MM DIG SCREENING MAMM BI W/CAD 05/20/2024 2:22 PM 2. MG MM MAMMO DIGITAL BONY SCREEN BILAT 05/16/2023 1:36 PM 3. MG MM MAMMO DIGITAL BONY SCREEN BILAT 03/05/2022 10:07 AM 4. MG MM MAMMO DIGITAL BONY DIAGN BILAT 02/09/2021 11:07 AM FINDINGS: MAMMOGRAPHY: Breast composition: There are scattered areas of fibroglandular density. Mass: None. Architectural distortion: None. Calcifications: No suspicious calcifications. Asymmetric density: No developing asymmetry. Skin thickening: None. Axillary adenopathy: None. IMPRESSION: No mammographic evidence of malignancy. Annual screening is recommended unless otherwise clinically indicated. ASSESSMENT: BI-RADS Category 1: Negative.
--- OUTSIDE RECORDS SUMMARY | 2025-05-20 15:36 | XMS_ITS | Encounter Summary ---
Author Organization [place] [address] Care Team Providers Care Director Of Slot Operations Name Role Phone Benita Infante Primary Care Provider [phone] Dennis Mak MD Unavailable [phone] Michaela Palacio MD Unavailable [phone] Encounter Details Date Type Department Care Team (Late st Contact Info) Description 04/06/2025 Treatment [facility] [address] [id number] Elizabeth Franklin MA Social History Tobacco Use Types Packs/Day Years [...] Macie Ag RN documented in this encounter Plan of Treatment Upcoming Encounters Date Type Department Care Team (Late st Contact Info) Description 08/05/2025 2:00 PM EDT Office Visit [facility] [address] [place] [address] Michaela Palacio MD [address] [place] [address] documented as of this encounter Visit Diagnoses Not on filedocumented in this encounter Care Teams Director Of Slot Operations Relationship Specialty Start Date End Date Benita Infante [address] [place] [id number] PCP - General 07/10/10 Dennis Mak MD [address] [place] [address] Internal Medicine-Gastroenterology 07/14/13 Michaela Palacio MD [address] [place] [address] Internal Medicine-Rheumatology 02/20/23 documented as of this encounter
--- OUTSIDE RECORDS SUMMARY | 2025-05-20 15:36 | XMS_ITS | Encounter Summary ---
Author Organization [place] [address] Care Team Providers Care Nutritional Services Cook Name Role Phone Benita Infante Primary Care Provider [phone] Dennis Mak MD Unavailable [phone] Michaela Palacio MD Unavailable [phone] Encounter Details Date Type Department Care Team (Late st Contact Info) Description 04/04/2025 Results [facility]-Up [facility] Preemption [address] [place] [phone] Tim Mcgee MD [address] [place] [address] XR FOOT RIGHT AP LATERAL AND OBLIQUE Social History Tobacco Use Types Packs/Day Years [...] Description 08/05/2025 2:00 PM EDT Office Visit [facility] [address] [place] [address] Michaela Palacio MD [address] [place] [address] documented as of this encounter Visit Diagnoses Not on filedocumented in this encounter Care Teams Nutritional Services Cook Relationship Specialty Start Date End Date Benita Infante [address] [place], [place] [address] PCP - General 07/10/10 Dennis Mak MD [address] [place], [place] [address] Internal Medicine-Gastroenterology 07/14/13 Michaela Palacio MD [address] [place] [address] Internal Medicine-Rheumatology 02/20/23 documented as of this encounter
--- OUTSIDE RECORDS SUMMARY | 2025-05-20 15:36 | XMS_ITS | Encounter Summary ---
Author Organization [facility] Address One [facility] [place] [address] Care Team Providers Care Grey Roll Man Name Role Phone Benita Infante Primary Care Provider [phone] Dennis Mak MD Unavailable [phone] Michaela Palacio MD Unavailable [phone] Encounter Details Date Type Department Care Team (Late st Contact Info) Description 06/02/2020 Orders Only [facility] [place] [address] Manuel Brito MD Social History Tobacco Use Types Packs/Day Years Used Date Smoking Tobacco: Never Smokeless Tobacco: Never Alcohol Use Standard Drinks/Week Comments No 0 (1 standard drink = 0.6 oz pur e alcohol) Comments No Sex and Gender Information Value Date Recorded Sex Assigned at Not on file Legal Sex Female 4:54 AM EDT Gender Identity Not on file Sexual Orientation Not on file COVID-19 Exposure Response Date Recorded In the last month, have you been in contact with someone who was confirmed or suspected to have Coronavirus / COVID-19? No / Unsure 05/31/2020 8:42 AM EDT documented as of this encounter Functional Status [...] Description 08/05/2025 2:00 PM EDT Office Visit [facility] [address] [place] [address] Michaela Palacio MD [address] [place] [address] documented as of this encounter Procedures Procedure Name Priority Date/Time Associated Diagnosis Comments NEOGENOMICS MISMATCH REPAIR (MMR) IHC PANEL Routine 06/02/2020 1:51 PM EDT documented in this encounter Results * NEOGENOMICS MISMATCH REPAIR (MMR) IHC PANEL (06/02/2020 1:51 PM EDT) [employer] Result H&E (Comments) = B) Sigmoid Colon and Rectum, Low Anterior Resection: - Invasive, Moderately Differentiated Colonic Adenocarcinoma. MLH1 (Result) = NO LOSS OF EXPRESSION MLH1 (Tumor Stained) = 95% MLH1 (Intensity) = 3+ MSH2 (Result) = NO LOSS OF EXPRESSION MSH2 (Tumor Stained) = 95% MSH2 (Intensity) = 2+ MSH6 (Result) = NO LOSS OF EXPRESSION MSH6 (Tumor Stained) = 98% MSH6 (Intensity) = 3+ PMS2 (Result) = NO LOSS OF EXPRESSION PMS2 (Tumor Stained) = 79% PMS2 (Intensity) = 1+ MLH1 (Reference Ranges) = Loss of Expression: </=5% Equivocal: =6-50% No Loss of Expression: >50% MSH2 (Reference Ranges) = Loss of Expression: </=5% Equivocal: =6-50% No Loss of Expression: >50% MSH6 (Reference Ranges) = Loss of Expression: </=5% Equivocal: =6-50% No Loss of Expression: >50% PMS2 (Reference Ranges) = Loss of Expression: </=5% Equivocal: =6-50% No Loss of Expression: >50% MLH1 (Intended Use) = Mismatch repair genes perform an essential cellular function by repairing DNA mismatches that may occur during cellular replication. A number of these genes have been identified in the human genome, including MLH1, MSH2, MSH3, MSH6, PMS1, PMS2 and EPCAM. MLH1, MSH2, MSH6 and PMS2 proteins are normally expressed in the nucleus of cells. The absence of nuclear expression of one or more of these proteins has been found to correlate with the presence of a mismatch repair gene defect in the respective gene. However, loss of MLH1 expression is also common in sporadic cancers due to MLH1 promoter methylation rather than germline mutation. Studies have found that 50%-70% of patients with Briceño Syndrome [hereditary non-polyposis colorectal cancer (HNPCC)] have a mutation in one of the DNA mismatch repair genes. Patients with Briceño Syndrome have an 80-90% lifetime risk of colorectal carcinoma and increased risk of endometrial cancer and other cancers, and typically have an earlier onset (mean age of onset 42, vs 65 years for sporadic colon cancer). MLH1 (Methodology) = Dako clone [id number] was used to detect MLH1 in formalin-fixed paraffin-embedded tissue sections. A polymerJibJab based system was used for detection. MLH1 (Disclaimer) = MMR references ranges are based on VideoIQ` internal validation, and we recommend cases with equivocal staining be confirmed with microsatellite instability (MSI) testing. MLH1 (Control Statement) = The digitized slide(s) was/were adequate for quantitative image analysis. All controls were reviewed and showed appropriate positive and negative immunoreactivity. MLH1 (Image Analysis Statement) = Whole slide image capture was performed with the Aperio ScanScope and quantitative computer-assisted image analysis using Movie Mouth software. MSH2 (Intended Use) = Mismatch repair genes perform an essential cellular function by repairing DNA mismatches that may occur during cellular replication. A number of these genes have been identified in the human genome, including MLH1, MSH2, MSH3, MSH6, PMS1, PMS2 and EPCAM. MLH1, MSH2, MSH6 and PMS2 proteins are normally expressed in the nucleus of cells. The absence of nuclear expression of one or more of these proteins has been found to correlate with the presence of a mismatch repair gene defect in the respective gene. However, loss of MLH1 expression is also common in sporadic cancers due to MLH1 promoter methylation rather than germline mutation. Studies have found that 50%-70% of patients with Briceño Syndrome [hereditary non-polyposis colorectal cancer (HNPCC)] have a mutation in one of the DNA mismatch repair genes. Patients with Briceño Syndrome have an 80-90% lifetime risk of colorectal carcinoma and increased risk of endometrial cancer and other cancers, and typically have an earlier onset (mean age of onset 42, vs 65 years for sporadic colon cancer). MSH2 (Methodology) = Dako clone [id number] was used to detect MSH2 in formalin-fixed paraffin-embedded tissue sections. A polymerJibJab based system was used for detection. MSH6 (Intended Use) = Mismatch repair genes perform an essential cellular function by repairing DNA mismatches that may occur during cellular replication. A number of these genes have been identified in the human genome, including MLH1, MSH2, MSH3, MSH6, PMS1, PMS2 and EPCAM. MLH1, MSH2, MSH6 and PMS2 proteins are normally expressed in the nucleus of cells. The absence of nuclear expression of one or more of these proteins has been found to correlate with the presence of a mismatch repair gene defect in the respective gene. However, loss of MLH1 expression is also common in sporadic cancers due to MLH1 promoter methylation rather than germline mutation. Studies have found that 50%-70% of patients with Briceño Syndrome [hereditary non-polyposis colorectal cancer (HNPCC)] have a mutation in one of the DNA mismatch repair genes. Patients with Briceño Syndrome have an 80-90% lifetime risk of colorectal carcinoma and increased risk of endometrial cancer and other cancers, and typically have an earlier onset (mean age of onset 42, vs 65 years for sporadic colon cancer). MSH6 (Methodology) = Dako clone EP49 was used to detect MSH6 in formalin-fixed paraffin-embedded tissue sections. A polymerJibJab based system was used for detection. PMS2 (Intended Use) = Mismatch repair genes perform an essential cellular function by repairing DNA mismatches that may occur during cellular replication. A number of these genes have been identified in the human genome, including MLH1, MSH2, MSH3, MSH6, PMS1, PMS2 and EPCAM. MLH1, MSH2, MSH6 and PMS2 proteins are normally expressed in the nucleus of cells. The absence of nuclear expression of one or more of these proteins has been found to correlate with the presence of a mismatch repair gene defect in the respective gene. However, loss of MLH1 expression is also common in sporadic cancers due to MLH1 promoter methylation rather than germline mutation. Studies have found that 50%-70% of patients with Briceño Syndrome [hereditary non-polyposis colorectal cancer (HNPCC)] have a mutation in one of the DNA mismatch repair genes. Patients with Briceño Syndrome have an 80-90% lifetime risk of colorectal carcinoma and increased risk of endometrial cancer and other cancers, and typically have an earlier onset (mean age of onset 42, vs 65 years for sporadic colon cancer). PMS2 (Methodology) = Dako clone EP51 was used to detect PMS2 in formalin-fixed paraffin-embedded tissue sections. A PetMD based system was used for detection. [facility] 06/02/2020 1:51 PM EDT Narrative [facility] - 06/13/2020 1:22 PM EDT Requesting Provider: Gonzalez Hollingsworth Specimen = [id number] us Manuel Brito MD PATHOLOGY ORDERABLES Final Res ult [facility] [address] [place] [address] documented in this encounter Visit Diagnoses Not on filedocumented in this encounter Care Teams Grey Roll Man Relationship Specialty Start Date End Date Benita Infante [facility] [place] [address] PCP - General 07/10/10 Dennis Mak MD [address] [place] [address] Internal Medicine-Gastroenterology 07/14/13 Michaela Palacio MD [address] [place] [address] Internal Medicine-Rheumatology 02/20/23 documented as of this encounter
--- OUTSIDE RECORDS SUMMARY | 2025-05-20 15:36 | XMS_ITS | Encounter Summary ---
Author Organization [facility] Address [address] [place] [address] Care Team Providers Care Green Building Materials Distributor Name Role Phone Benita Infante Primary Care Provider [phone] Dennis Mak MD Unavailable [phone] Michaela Palacio MD Unavailable [phone] Encounter Details Date Type Department Care Team (Latest Contact Info) Description 02/21/2025 Results Follow-Up [facility] [address] [place] [address] Michaela Palacio MD [address] [place] [address] CBC WITH DIFF, SEDIMENTATION RATE AUTOMATED, C-REACTIVE PROTEIN, Additional followed-up results: 3 Social History Tobacco Use Types Packs/Day Years [...] Description 08/05/2025 2:00 PM EDT Office Visit [facility] [address] [place] [address] Michaela Palacio MD [address] [place] [address] documented as of this encounter Visit Diagnoses Not on filedocumented in this encounter Care Teams Green Building Materials Distributor Relationship Specialty Start Date End Date Benita Infante [address] [place], [place] [address] PCP - General 07/10/10 Dennis Mak MD [address] [place], [place] [address] Internal Medicine-Gastroenterology 07/14/13 Michaela Palacio MD [address] [place] [address] Internal Medicine-Rheumatology 02/20/23 documented as of this encounter
--- OUTSIDE RECORDS SUMMARY | 2025-05-20 15:36 | XMS_ITS | Encounter Summary ---
Author Organization [place] [address] Care Team Providers Care Bore Mill Operator Name Role Phone Benita Infante Primary Care Provider [phone] Dennis Mak MD Unavailable [phone] Michaela Palacio MD Unavailable [phone] Encounter Details Date Type Department Care Team (Late st Contact Info) Description 04/15/2020 [facility] [place] [address] Dennis Mak MD [address] [place] [address] Iron deficiency anemia, unspecified; Diaphragmatic hernia without obstruction or gangrene; Diverticulosis of large intestine without perforation or abscess without bleeding; Polyp of colon Social History Tobacco Use Types Packs/Day Years [...] have Coronavirus / COVID-19? No / Unsure 04/15/2020 9:09 AM EDT documented as of this encounter [...] [facility] [address] [place] [address] Michaela Palacio MD [address] [place] [address] documented as of this encounter Procedures Procedure Name Priority Date/Time Associated Diagnosis Comments PATHOLOGY TISSUE REQUEST Routine 04/15/2020 10:20 AM EDT Iron deficiency anemia, unspecified Diaphragmatic hernia without obstruction or gangrene Diverticulosis of large intestine without perforation or abscess without bleeding Polyp of colon documented in this encounter Results * PATHOLOGY TISSUE REQUEST (04/15/2020 10:20 AM EDT) CASE REPORT Surgical Pathology Case: [id number] Authorizing Provider: Dennis Mak MD Collected: 04/15/2020 1020 Ordering Location: [facility] Received: 04/15/2020 8229 Pathologist: Dontae Scott MD Specimens: A) - Small Intestine, Duodenum B) - Large Intestine, Left/Descending Colon C) - Large Intestine, Rectum D) - Large Intestine, Rectum 04/19/2020 8:33 AM EDT [facility] CLINICAL HISTORY Iron deficiency anemia. A 3 cm mass in the rectosigmoid junction and a 1 cm polyp in the rectum. 04/19/2020 8:33 AM EDT [facility] FINAL DIAGNOSIS A) Duodenum, distal, biopsy: - Duodenal mucosa with preserved villous architecture and no significant pathologic change. B) Colon, descending, polyp, biopsy: - Fragments of tubular adenoma. C) Colon, rectosigmoid mass, biopsy: - Invasive adenocarcinoma, moderately differentiated. D) Colon, rectum, polyp, biopsy: - Fragments of tubulovillous adenoma. - Separate fragment of invasive adenocarcinoma. (SEE NOTE) Note: The separate fragment showing invasive adenocarcinoma may represent carryover from the mass, please correlate with endoscopy findings. 04/19/2020 8:33 AM EDT [facility] at 0833 EDT COMMENT Parts C and D were reviewed by additional departmental pathologist with diagnostic agreement.EK Dr. Dennis Mak was notified of this result via [employer] text message on 04/19/2020 at 8:32 am. 04/19/2020 8:33 AM EDT [facility] GROSS DESCRIPTION Part A) Received in formalin labeled with the patient's name and distal duodenum biopsy are 2 fragments of mcgovern tissue, both measuring 0.3 cm in greatest dimension. Entirely submitted in one cassette. /ZN Part B) Received in formalin labeled with the patient's name and descending colon polyp are 4 fragments of mcgovern tissue ranging from 0.2 to 0.5 cm in greatest dimension. Entirely submitted in one cassette. /ZN Part C) Received in formalin labeled with the patient's name and rectosigmoid mass biopsy are multiple fragments of mcgovern tissue ranging from 0.2 to 0.5 cm in greatest dimension. Entirely submitted in one cassette. /ZN Part D) Received in formalin labeled with the patient's name and rectal polyp are multiple fragments of mcgovern tissue ranging from 0.2 to 0.5 cm in greatest dimension. Entirely submitted in one cassette. /ZN 04/19/2020 8:[address] [facility] MICROSCOPIC DESCRIPTION Microscopic examination is performed and the findings corroborate the diagnosis. 04/19/2020 8:33 AM EDT [facility] FLOW CYTOMETRY SUMMARY 04/19/2020 8:33 AM EDT [facility] SPECIAL STAINS 04/19/2020 8:[address] [facility] EMBEDDED IMAGES 04/19/2020 8:33 AM EDT [facility] Tissue DUODENAL STRUCTURE / Unknown 04/15/2020 10:20 AM EDT 04/15/2020 3:42 PM EDT Tissue specimen (specimen) DESCENDING COLON STRUCTURE / Unknown 04/15/2020 10:20 AM EDT 04/15/2020 3:42 PM EDT Tissue specimen (specimen) RECTUM STRUCTURE / Unknown 04/15/2020 10:20 AM EDT 04/15/2020 3:42 PM EDT Tissue specimen (specimen) RECTUM STRUCTURE / Unknown 04/15/2020 10:20 AM EDT 04/15/2020 3:42 PM EDT Dennis Mak MD PATHOLOGY ORDERABLES Final Result [facility] [address] [place] [address] [place] [address] documented in this encounter Visit Diagnoses Diagnosis Iron deficiency anemia, unspecified Diaphragmatic hernia without obstruction or gangrene Diaphragmatic hernia without mention of obstruction or gangrene Diverticulosis of large intestine without perforation or abscess without bleeding Diverticulosis of colon (without mention of hemorrhage) Polyp of colon Benign neoplasm of colon documented in this encounter Care Teams Bore Mill Operator Relationship Specialty Start Date End Date Benita Infante [address] [place] [address] PCP - General 07/10/10 Dennis Mak MD [address] [place] [address] [place] [address] Internal Medicine-Gastroenterology 07/14/13 Michaela Palacio MD [address] [place] [address] Internal Medicine-Rheumatology 02/20/23 documented as of this encounter
--- OUTSIDE RECORDS SUMMARY | 2025-05-20 15:36 | XMS_ITS | Encounter Summary ---
Author Organization [place] [address] Care Team Providers Care Remote Sensing Technologist Name Role Phone Benita Infante Primary Care Provider [phone] Dennis Mak MD Unavailable [phone] Michaela Palacio MD Unavailable [phone] Reason for Visit * Reason Onset Date Comments Results 04/05/2025 Encounter Details Date Type Department Care Team (Late st Contact Info) Description 04/05/2025 Telephone [facility] [address] [address] [address] [place] [address] Catina Acosta CCMA Results Social History Tobacco Use Types Packs/Day Years [...] 10:02 AM EDT Macie Clements RN * Does this person have serious difficulty walking or climbing stairs? Answer Date of Assessment Author No 05/20/2019 10:02 AM [facility] Macie Clements RN * Does this person have difficulty dressing or bathing? Answer Date of Assessment Author No 05/20/2019 10:02 AM [facility] Macie Clements RN * Because of a physical, mental or emotional condition, does this person have difficulty doing errands alone such as visiting a doctor's office or shopping? Answer Date of Assessment Author No 05/20/2019 10:02 AM [facility] Macie Clements RN documented as of this encounter Mental Status * Because of a physical, mental or emotional condition, does this person have serious difficulty concentrating, remembering or making decisions? Answer Entry Date Author No 05/20/2019 10:02 AM Macie Ag RN documented in this encounter Miscellaneous Notes * Telephone Encounter - Catina Acosta CCMA - 04/05/2025 1:09 PM EDT 04/05/25 pt made aware of results and had no questions or concerns at this time STEVE Pabon documented in this encounter Plan of Treatment Upcoming Encounters Date Type Department Care Team (Late st Contact Info) Description 08/05/2025 2:00 PM EDT [facility] [address] [place] [address] Michaela Palacio MD [address] [place] [address] documented as of this encounter Visit Diagnoses Not on filedocumented in this encounter Care Teams Remote Sensing Technologist Relationship Specialty Start Date End Date Benita Infante [id number] [facility] [place] [address] PCP - General 07/10/10 Dennis Mak MD [address] [place] [address] Internal Medicine-Gastroenterology 07/14/13 Michaela Palacio MD [address] [place] [address] Internal Medicine-Rheumatology 02/20/23 documented as of this encounter
--- OUTSIDE RECORDS SUMMARY | 2025-05-20 15:36 | XMS_ITS | Encounter Summary ---
Author Organization [place] [address] Care Team Providers Care Upper Trimmer Name Role Phone Benita Infante Primary Care Provider [phone] Dennis Mak MD Unavailable [phone] Michaela Palacio MD Unavailable Encounter Details Date Type Department Care Team (Late st Contact Info) Description 04/15/2020 Orders Only [facility] [address] [facility] [address] [place] [address] Dennis Mak MD [address] [facility] [place] [address] Social History Tobacco Use Types Packs/Day Years [...] Description 08/05/2025 2:00 PM EDT Office Visit [facility] [address] [place] [address] Michaela Palacio MD [address] [place] [address] documented as of this encounter Procedures Procedure Name Priority Date/Time Associated Diagnosis Comments [facility] EGD-COLONOSCOPY Routine 04/15/2020 10:20 AM EDT documented in this encounter Results * [facility] EGD-COLONOSCOPY (04/15/2020 10:20 AM EDT) 04/15/2020 10:2 0 AM EDT Impressions [facility] - 04/15/2020 11:24 AM EDT Plan: CT scan chest/abdomen/pelvis with contrast Colonoscopy in 1 year. This section is an excerpt of the full report. us Dennis Mak MD GI PROCEDURE ORDERABLES Fin al Result [facility] [address] [place] [address] documented in this encounter Visit Diagnoses Not on filedocumented in this encounter Care Teams Upper Trimmer Relationship Specialty Start Date End Date Benita Infante [address] [place] [address] [address] [place] [address] PCP - General 07/10/10 Dennis Mak MD [address] [place] [address] [address] [place], [place] [id number] Internal Medicine-Gastroenterology 07/14/13 [place] [address] [place] [phone] Internal Medicine-Rheumatology 02/20/23 documented as of this encounter
--- OUTSIDE RECORDS SUMMARY | 2025-05-20 15:36 | XMS_ITS | Clinical Summary ---
Author Organization The Address [address] [place], [place] [address] Care Team Providers Care Telephone Operator Receptionist Name Role Phone Nonstaff, Referring MD Primary Care Provider [phone] Dwain Choi MD Unavailable [phone] Allergies Active Allergy Reactions Criticality Noted Date Comments Decongestant Allergy Swelling 01/15/2013 Morphine Other (See Comments) 01/15/2013 Chest pressure Medications INFLIXIMAB (REMICADE IV) by Intravenous route. Every 8 weeks 3 Active metoprolol (TOPROL) 100 mg PO XL tablet Take 100 mg by mouth every evening. Active lisinopril (PRINIVIL, ZESTRIL) 20 mg PO tablet Take 20 mg by mouth daily. Active gabapentin (NEURONTIN) 600 mg PO tablet Take 600 mg by mouth 3 times daily. Active Cholecalciferol , Vitamin D3, 1,000 unit PO Cap Take 1,000 Units by mouth 2 times daily. Active MULTIVITAMIN WITH MINERALS (MULTIVITAMIN & MINERAL FORMULA PO) Take 1 Tab by mouth daily. With iron, calcium, folic acid, vitamin c Active calcium carbonate (CALTRATE) 600 mg (1,500 mg) PO Tab Take 1 Tab by mouth daily. Active VITAMIN E ACETATE (VITAMIN E PO) Take 1 Cap by mouth daily. Active GLUC ROCHA/CHONDRO ROCHA A/VIT C/MN (GLUCOSAMINE 1500 COMPLEX PO) Take 1 Tab by mouth 2 times daily. Active Hydrocodone-Jewel taminophen (NORCO) 5-325 mg PO per tablet Take 1-2 Tabs by mouth every 4 hours as needed. 50 Tab n 3 Active meloxicam (MOBIC) 15 mg tablet Take 15 mg by mouth daily. Active FOLIC ACID PO Take 2 mg by mouth. Active traMADol (ULTRAM) 50 mg tablet Take 50 mg by mouth every 6 hours as needed. Active amLODIPine (NORVASC) 5 mg tablet Take 5 mg by mouth daily. Active dicyclomine (BENTYL) 10 mg capsule Take 10 mg by mouth 3 times daily. Active Active Problems Problem Noted Date Diagnosed Date Acquired hallux valgus of both feet 05/30/2015 Hammertoe 05/30/2015 Ingrowing nail 05/30/2015 Difficulty walking 05/30/2015 Foot pain, bilateral 05/12/2015 Arthritis, hip 2013 HTN (hypertension) 2013 Family History Medical History Relation Name Comments Heart Problems Maternal Grandmother Heart Problems Mother Anesthesia Complications Neg Hx Relation Name Status Comments Maternal Grandmother Mother Social History Tobacco Use Types Packs/Day Years Used Date Smoking Tobacco: Never Alcohol Use Standard Drinks/Week Comments No 0 (1 standard drink = 0.6 oz pur e alcohol) Comments No Sex and Gender Information Value Date Recorded Sex Assigned at Not on file Legal Sex Female 7:24 PM EST Gender Identity Not on file Sexual Orientation Not on file Last Filed Vital Signs Vital Sign Reading Time Taken Comments Blood Pressure 95/51 01/24/2013 5:33 PM EDT Pulse 96 01/24/2013 5:33 PM EDT Temperature 37.1 C (98.7 F) 01/24/2013 3:14 PM EDT Respiratory Rate 16 01/24/2013 3:14 PM EDT Oxygen Saturation 96% 01/24/2013 3:14 PM EDT Inhaled Oxygen Concentration - - Weight 80.3 kg (177 lb) 05/12/2015 3:43 PM EDT Height 160 cm (5' 3 ) 05/12/2015 3:43 PM EDT Body Mass Index 31.35 05/12/2015 3:43 PM EDT Plan of Treatment Health Maintenance Due Date Last Done Comments Cologuard 1955 Colonoscopy 1955 Colorectal Cancer Screening 1955 FIT 1955 Lipid Screening 1973 Tetanus Vaccination (Every 10 Years) 1973 Hepatitis C Virus (HCV) Screening 01/24/1976 Breast Cancer Screening 2005 Pneumococcal Vaccine: 50+ Years (1 of 1 - PCV) 005 Zoster-RZV(Shingrix) (1 of 2) 2005 Fall Risk Assessment 01/24/2020 Osteoporosis Screening 01/24/2020 COVID-19 Vaccine ( season) 2024 Advance Care Planning 11/11/2024 Depression Screening 11/11/2024 Influenza Vaccination (#1) 2025 RSV Vaccines (1 - 1-dose 75+ series) 2030 Medical Devices Implanted Type Area Instructional Support Technician Device Identifier Shelf Expiration Date Model / Serial / Lot Scr Canc Acetab 6.5x40mm Implanted:Qty: 1 on 2013 by Dwain Choi MD at [facility] Left: Hip * J \T\ J DEPUY 12/11/2022 [id number] / / [id number] Head Fem Cocr 10/24 28mm+5 Implanted:Qty: 1 on 2013 by Dwain Choi MD at [facility] Left: Hip * J \T\ J DEPUY 06/10/2016 1365-12-000 / / [id number] Stem Fem Std Collar Corail 11 Implanted:Qty: 1 on 2013 by Dwain Choi MD at [facility] Left: Hip * J \T\ J DEPUY [id number] / / [id number] Eliminator [place] H Pos Stop Implanted:Qty: 1 on 2013 by Dwain Choi MD at [facility] Left: Hip * J \T\ J DEPUY 11/10/2022 [id number] / / [id number] Cup Acetab Sector 50mm Implanted:Qty: 1 on 2013 by Dwain Choi MD at [facility] Left: Hip * J \T\ J DEPUY 12/11/2022 1217-22-050 / / [id number] [employer] Altrx Polyethylene Acetabular Liner Neutral 28mm Id X 50mm Od Implanted:Qty: 1 on 2013 by Dwain Choi MD at [facility] Left: Hip * USE JJ DEPU 05/10/2016 [id number] / / [id number] Hip Total Con Tier 2 Depuy Implanted:Qty: 1 on 2013 by Dwain Choi MD at [facility] Left: Hip * J \T\ J DEPUY HIPS TIER 2 / / Insurance AETNA AETNA Advance Directives For more information, please contact: [phone] * Full Code (Latest Code Status on File) Date Activated Date Inactivated Comments 2013 3:09 PM 01/24/2013 10:13 PM Care Teams Telephone Operator Receptionist Relationship Specialty [place] [address] [place] [address] PCP - General Family Medicine 01/08/13 Dwain Choi MD [address] [place], [place] [address] Orthopedic Surgery 11/18/22
--- OUTSIDE RECORDS SUMMARY | 2025-05-20 15:37 | XMS_ITS | Clinical Summary ---
Author Organization [facility] Address [facility] [place] [address] Care Team Providers Care Director Targeted Marketing Name Role Phone Unavailable Primary Care Provider Unavailabl e Social History Tobacco Use Types Packs/Day Years Used Date Smoking Tobacco: Never Assessed Comments Unknown Sex and Gender Information Value Date Recorded Sex Assigned at Not on file Legal Sex Female 9:47 PM EDT Gender Identity Not on file Sexual Orientation Not on file Plan of Treatment Health Maintenance Due Date Last Done Comments Hepatitis C Screening 1955 DTap,Tdap,and Td (1 - Tdap) 1966 Mammogram Screening 1995 Colonoscopy 01/24/2000 Pneumococcal 50+ (1 of 1 - PCV) 2005 Shingrix (#1) 2005 DEXA Scan 01/24/2020 Influenza Vaccine (Season Ended) 2025 RSV Vaccine (60+ or ) (1 - 1-dose 75+ series) 2030 HPV Aged Out No longer eligi ble based on patient's age to complete this topic Meningococcal conjugate eric nt 4 (MCV4) Aged Out No longer eligible b ased on patient's age to complete this topic RSV Immunization (<20 months) Aged Out No longer eligible based on patient's age to complete this topic
--- OUTSIDE RECORDS SUMMARY | 2025-05-20 15:37 | XMS_ITS | Encounter Summary ---
Author Organization [place] [address] Care Team Providers Care Hairspring Fabrication Supervisor Name Role Phone Benita Infante Primary Care Provider [phone] Dennis Mak MD Unavailable [phone] Michaela Palacio MD Unavailable [phone] Encounter Details Date Type Department Care Team (Late st Contact Info) Description 08/14/2021 Orders Only [facility] [address] [facility] [address] [place] [address] Dennis Mak MD [address] [place] [address] Social History Tobacco Use Types [...] have Coronavirus / COVID-19? No / Unsure 08/17/2021 11:41 AM EDT documented as of this encounter [...] Office Visit [facility] [address] [place] [address] Michaela Palacio MD [address] [place] [address] documented as of this encounter Procedures Procedure Name Priority Date/Time Associated Diagnosis Comments GMED COLONOSCOPY Routine 08/14/2021 11:0 0 AM EDT documented in this encounter Results * GMED COLONOSCOPY (08/14/2021 11:00 AM EDT) 08/14/2021 11:0 0 AM EDT Impressions [facility] - 08/14/2021 10:57 AM EDT Polyps (3 mm to 4 mm) in the descending colon. (Polypectomy). Previous Surgery in the colon. Plan: Colonoscopy in 3 years. This section is an excerpt of the full report. us Dennis Mak MD GI PROCEDURE ORDERABLES Fin al Result [facility] [address] [place] [address] documented in this encounter Visit Diagnoses Not on filedocumented in this encounter Care Teams Hairspring Fabrication Supervisor Relationship Specialty Start Date End Date Benita Infante [address] [place] [address] [address] [place] [address] PCP - General 07/10/10 Dennis Mak MD [address] [place] [address] [address] [place] [address] Internal Medicine-Gastroenterology 07/14/13 [place] [address] [place] [phone] Internal Medicine-Rheumatology 02/20/23 documented as of this encounter
--- OUTSIDE RECORDS SUMMARY | 2025-05-20 15:37 | XMS_ITS | Encounter Summary ---
Author Organization [place] [address] Care Team Providers Care Environmental Lead Name Role Phone Benita Infante Primary Care Provider [phone] Dennis Mak MD Unavailable [phone] Michaela Palacio MD Unavailable [phone] Encounter Details Date Type Department Care Team (Late st Contact Info) Description 04/06/2025 Orders Only [facility] [place] [address] [place] [phone] Con Farris, DO [address] [place] [address] Social History Tobacco Use Types Packs/Day Years [...] Macie Ag RN documented in this encounter Ordered Prescriptions Prescription Sig Dispense Quantity Refills Last Filled Start Date End Date benzonatate (TESSALON) 200 mg Oral Capsule Take 1 Capsule by mouth 3 times daily as needed for Cough for up to 5 days. swallow capsule whole 15 Capsule 04/06/2025 documented in this encounter Plan of Treatment Upcoming Encounters Date Type Department Care Team (Late st Contact Info) Description 08/05/2025 2:00 PM EDT [facility] [address] [place] [address] Michaela Palacio MD [address] [place] [address] documented as of this encounter Visit Diagnoses Not on filedocumented in this encounter Care Teams Environmental Lead Relationship Specialty Start Date End Date Benita Infante [address] [place] [address] [address] [place] [address] PCP - General 07/10/10 Dennis Mak MD [address] [place] [address] [address] [place] [address] Internal Medicine-Gastroenterology 07/14/13 Michaeal Palacio MD [address] [place] [address] Internal Medicine-Rheumatology 02/20/23 documented as of this encounter
--- OUTSIDE RECORDS SUMMARY | 2025-05-20 15:37 | XMS_ITS | Encounter Summary ---
Author Organization [place] [address] Care Team Providers Care Production Control Clerk Name Role Phone Benita Infante Primary Care Provider [phone] Dennis Mak MD Unavailable [phone] Michaela Palacio MD Unavailable [phone] Encounter Details Date Type Department Care Team (Late st Contact Info) Description 08/12/2013 Orders Only [facility] [address] [facility] [address] [place] [address] Dennis Mak MD [address] [facility] [place] [address] Social History Tobacco Use Types [...] on file documented as of this encounter Plan of Treatment Upcoming Encounters Date Type Department Care Team (Late st Contact Info) Description 08/05/2025 2:00 PM EDT Office Visit [facility] [address] [place] [address] Michaela Palacio MD [address] [place] [address] documented as of this encounter Procedures Procedure Name Priority Date/Time Associated Diagnosis Comments GMED EGD Routine 08/12/2013 7:30 AM EDT documented in this encounter Results * GMED EGD (08/12/2013 7:30 AM EDT) 08/12/2013 7:30 AM EDT Impressions [facility] - 08/12/2013 7:47 AM EDT Normal stomach. Normal duodenum. Normal mucosa in the whole esophagus. (Dilation). Plan: Follow-up as needed This section is an excerpt of the full report, which can be found by clicking the hyperlink. us Dennis Mak MD GI PROCEDURE ORDERABLES Fin al Result Performing Organization Address City/State/[facility] Co de Phone Number [facility] [address] [place] [address] documented in this encounter Visit Diagnoses Not on filedocumented in this encounter Care Teams Production Control Clerk Relationship Specialty Start Date End Date Benita Infante [address] [facility] [address] PCP - General 07/10/10 Dennis Mak MD [address] [facility] [place] [address] Internal Medicine-Gastroenterology 07/14/13 Michaela Palacio MD [address] [place] [address] Internal Medicine-Rheumatology 02/20/23 documented as of this encounter
--- OUTSIDE RECORDS SUMMARY | 2025-05-20 15:37 | XMS_ITS | Encounter Summary ---
Author Organization [place] [address] Care Team Providers Care Propeller Tester Name Role Phone Benita Infante Primary Care Provider [phone] Dennis Mak MD Unavailable [phone] Michaela Palacio MD Unavailable [phone] Reason for Visit * Reason Onset Date Comments Medication Management 04/06/2025 Encounter Details Date Type Department Care Team (Late st Contact Info) Description 04/06/2025 Telephone [facility] [address] [address] Elizabeth Franklin MA Medication Management Social History Tobacco Use Types Packs/Day Years [...] 10:02 AM EDT Macie Clements RN * Because of a physical, mental or emotional condition, does this person have difficulty doing errands alone such as visiting a doctor's office or shopping? Answer Date of Assessment Author No 05/20/2019 10:02 AM EDT Macie Clements RN documented as of this encounter Mental Status * Because of a physical, mental or emotional condition, does this person have serious difficulty concentrating, remembering or making decisions? Answer Entry Date Author No 05/20/2019 10:02 AM SUM[facility]ERT Macie Clements RN documented in this encounter Miscellaneous Notes * Telephone Encounter - Elizabeth Franklin MA - 04/06/2025 1:08 PM EDT patient notified * Telephone Encounter - Con Farris DO - 04/06/2025 1:07 PM EDT sent * Telephone Encounter - Elizabeth Franklin MA - 04/06/2025 1:05 PM EDT patient called requesting cough medication Elizabeth Franklin MA documented in this encounter Plan of Treatment Upcoming Encounters Date Type Department Care Team (Late st Contact Info) Description 08/05/2025 2:00 PM EDT Office Visit [facility] [address] [place] [address] Michaela Palacio MD [address] [place] [address] documented as of this encounter Visit Diagnoses Not on filedocumented in this encounter Care Teams Propeller Tester Relationship Specialty Start Date End Date Benita Infante [address] [place] [address] PCP - General 07/10/10 Dennis Mak MD [address] [place] [address] Internal Medicine-Gastroenterology 07/14/13 [place] [address] [place] [address] Internal Medicine-Rheumatology 02/20/23 documented as of this encounter
--- OUTSIDE RECORDS SUMMARY | 2025-05-20 15:37 | XMS_ITS | Referral Summary ---
Author Organization [facility] Address [address] [place], [place] [address] [address] Care Team Providers Care Moveman Name Role Phone Unavailable Primary Care Provider Unavailabl e Social History Tobacco Use Types Packs/Day Years Used Date Smoking Tobacco: Never Assessed Comments Unknown Sex and Gender Information Value Date Recorded Sex Assigned at Not on file Legal Sex Female 9:47 PM EDT Gender Identity Not on file Sexual Orientation Not on file Plan of Treatment Not on file
--- OUTSIDE RECORDS SUMMARY | 2025-05-20 15:37 | XMS_ITS | Continuity of Care Document ---
Author Organization [facility] Address [address] [place] [address] Phone Care Team Providers Care Patrol Man Name Role Phone Benita Infante Primary Care Provider Dennis Mak MD Unavailable Michaela Palacio MD Unavailable [phone] Encounters Date Type Department Care Team Description 04/06/2025 Orders Only [facility] [address] [address] Lidia Emanuel MA 04/06/2025 Orders Only [facility] [address] [address] Con Farris DO 04/06/2025 Telephone [facility] [address] [address] Elizabeth Franklin MA Medication Management 04/06/2025 Treatment [facility] [address] [address] Elizabeth Franklin MA 04/05/2025 Telephone [facility] [place] [address] [address] [address] [place] [address] Catina Acosta NievesSTEVE dodson Results 04/04/2025 Results Follow-Up [address] [place] [address] Tim Mcgee MD XR FOOT RIGHT AP LATERAL AND OBLIQUE 04/04/2025 5:15 PM EDT - 04/04/2025 11:59 PM EDT Hospital Encounter [facility] [address] [place] [address] Acute right ankle pain; Foot pain, right Discharge Disposition: Home or Self Care 04/04/2025 4:15 PM EDT Office Visit [address] [place] [address] Tim Mcgee MD Acute right ankle pain (Primary Dx); Foot pain, right; Acute non-recurrent maxillary sinusitis 03/09/2025 Telephone [facility] [address] [place] [address] Michaela Palacio MD Medication Management (Xeljanz) 02/21/2025 Results Follow-Up [facility] [address] [place] [address] Michaela Palacio MD CBC WITH DIFF, SEDIMENTATION RATE AUTOMATED, C-REACTIVE PROTEIN, Additional followed-up results: 3 02/19/2025 11:40 AM EDT - 02/19/2025 11:59 PM EDT Hospital Encounter [facility] [address] [place] [address] Rheumatoid arthritis of multiple sites 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 (HCC); Drug therapy Discharge Disposition: Home or Self Care 02/08/2025 Refill [facility] [address] [place] [address] Michaela Palacio MD Medication Refill 02/04/2025 Telephone [facility] [address] [place] [address] Michaela Palacio MD Medication Management (Xeljanz) 02/04/2025 2:00 PM EDT Office Visit [facility] [address] [place] [address] Michaela Palacio MD Rheumatoid arthritis of multiple sites 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 (HCC) (Primary Dx); Drug therapy; Primary generalized (osteo)arthritis; Fibromyalgia 01/26/2025 Refill [facility] [address] [place] [address] Michaela Palacio MD Medication Refill 01/18/2025 Telephone [facility] [address] [place] [address] Michaela Palacio MD Medication Management (Xeljanz) 12/31/2024 Refill [facility] [address] [place] [address] Michaela Palacio MD Medication Refill 09/18/2024 Refill [facility] [address] [place] [address] Michaela Palacio MD Medication Refill 09/03/2024 Refill [facility] [address] [place] [address] Michaela Palacio MD Medication Refill 08/10/2024 2:00 PM EDT Office Visit [facility] [address] [place] [address] Michaela Palacio MD Rheumatoid arthritis of multiple sites 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 (HCC) (Primary Dx); Drug therapy; Primary generalized (osteo)arthritis; Fibromyalgia 07/01/2024 Refill [facility] [address] [place] [address] Michaela Palacio MD Medication Refill 06/17/2024 Refill [facility] [address] [place] [address] Michaela Palacio MD Medication Refill 04/16/2024 Refill [facility] [address] [place] [address] Michaela Palacio MD Medication Refill 04/10/2024 Telephone [facility] [address] [place] [address] Lisa Mora, [facility] Results (/) 04/02/2024 1:09 PM EDT - 04/02/2024 11:59 PM EDT Hospital Encounter [facility] [address] [facility] [place] [address] Rashad Timmons PA-C Lung nodule Discharge Disposition: Home or Self Care 02/01/2024 Refill [facility] [address] [place] [address] Michaela Palacio MD Medication Refill 01/03/2024 Orders Only [facility] [address] [facility] [place] [address] Rashad Timmons PA-C Lung nodule (Primary Dx) 01/02/2024 2:00 PM EST Office Visit [facility] [address] [place] [address] Michaela Palacio MD Rheumatoid arthritis of multiple sites 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 (HCC) (Primary Dx); Drug therapy; Primary generalized (osteo)arthritis; Fibromyalgia 12/27/2023 2:01 PM EST - 12/27/2023 11:59 PM EST Hospital Encounter [facility] [place] [address] Rashad Timmons PA-C Personal history of colon cancer Discharge Disposition: Home or Self Care 12/19/2023 Telephone [facility] [address] [place] [address] Michaela Palacio MD Medication Management 12/12/2023 Orders Only [facility] [address] [place] [address] Michaela Palacio MD Rheumatoid arthritis of multiple sites 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 (HCC) (Primary Dx); Drug therapy 12/12/2023 Telephone [facility] [address] [place] [address] Michaela Palacio MD Medication Management 12/05/2023 Orders Only [facility] [address] [place] [address] Michaela Palacio MD 12/05/2023 Telephone [facility] [address] [place] [address] Michaela Palacio MD Medication Management 11/25/2023 Telephone [facility] [place] [address] [place] [address] Jose Guardado, DPM Other (Lapiplasty procedure/) 11/19/2023 Refill [facility] [address] [place] [address] Daily Bravo MA Medication Refill 09/09/2023 Refill [facility] [address] [place] [address] Chio Meraz MA Medication Refill 09/04/2023 Telephone [facility] [address] [place] [address] Michaela Palacio MD Medication Refill 09/03/2023 Refill [facility] [address] [place] [address] Michaela Palacio MD Medication Refill 09/03/2023 9:54 AM EDT - 09/03/2023 11:59 PM EDT Hospital Encounter [facility] [place] [address] Rashad Timmons PA-C Personal history of colon cancer (Primary Dx); Urinary frequency Discharge Disposition: Home or Self Care 08/02/2023 2:53 PM EDT Anesthesia Event [facility] [place] [address] Reza Sky, [place] Joseph, MORGAN 08/02/2023 Travel 08/02/2023 10:57 AM EDT - 08/02/2023 4:58 PM EDT Emergency [place] [address] [place] [address] Rip Meyer MD Food impaction of esophagus, initial encounter (Primary Dx) 08/02/2023 Telephone [facility] [address] 3RD [place] [address] Dennis Mak MD Dysphagia 06/27/2023 2:40 PM EDT Office Visit [facility] [address] [place] [address] Michaela Palacio MD Rheumatoid arthritis of multiple sites 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 (HCC) (Primary Dx); Primary generalized (osteo)arthritis; Fibromyalgia; Drug therapy 06/12/2023 Refill [facility] [address] [place] [address] Chio Meraz MA Medication Refill 05/16/2023 Travel 05/16/2023 1:48 PM EDT - 05/16/2023 11:59 PM EDT Hospital Encounter [facility] Mamm[facility] [phone] Benita Infante Visit for screening mammogram Discharge Disposition: Home or Self Care 02/21/2023 2:40 PM EDT Office Visit [facility] [address] [place] [address] Michaela Palacio MD Rheumatoid arthritis of multiple sites 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 (HCC) (Primary Dx); Primary generalized (osteo)arthritis; Fibromyalgia 01/29/2023 10:00 AM EDT Office Visit [facility] [address] [facility] [place] [address] Rashad Timmons PA-C History of cancer of rectosigmoid junction (Primary Dx) 12/25/2022 Travel 12/25/2022 4:18 PM EST - 12/25/2022 11:59 PM EST Hospital Encounter [address] [address] Rashad Timmons PA-C Lung nodule Discharge Disposition: Home or Self Care 12/20/2022 Abstract [facility] [address] [place] [address] Michaela Palacio MD 12/20/2022 Orders Only [facility] [address] [place] [address] Michaela Palacio MD 12/10/2022 Orders Only [facility] [address] [place] [address] Michaela Palacio MD 09/10/2022 Travel 09/10/2022 2:36 PM EDT - 09/10/2022 11:59 PM EDT Hospital Encounter [facility] [address] [place] [id number] Personal history of colon cancer Discharge Disposition: Home or Self Care 09/09/2022 Orders Only [facility] [address] [facility] [address] [place] [address] Rashad Timmons PA-C Lung nodule (Primary Dx) 08/21/2022 10:15 AM EDT Office Visit [facility] [address] [facility] [address] [place] [address] Rashad Timmons PA-C Personal history of colon cancer (Primary Dx); Abnormal CT scan, lung 08/10/2022 Telephone [facility] ECHO VAS ATTN: Appointments in this department are performed at various locations in the community on our Cardiovascular mobile health unit. You can look online to verify your site or call [phone] [address] Cherrie Begum, LIBRA Results 07/26/2022 Travel 07/26/2022 10:08 AM EDT - 07/26/2022 11:59 PM EDT [facility] [address] [place] [address] Rashad Timmons PA-C History of cancer of rectosigmoid junction Discharge Disposition: Home or Self Care 06/22/2022 Telephone [facility] [address] [facility] [address] [place] [address] Colon Brianna Mar RMA Appointment Needed 03/05/2022 Travel 03/05/2022 10:14 AM EDT - 03/05/2022 11:59 PM EDT Hospital Encounter [facility] Mammography [address] [place] [address] Benita Infante Encounter for screening mammogram for malignant neoplasm of breast Discharge Disposition: Home or Self Care 12/21/2021 Travel 12/21/2021 10:35 AM EST - 12/21/2021 11:59 PM EST Hospital Encounter [facility] [place] [address] Personal history of malignant neoplasm of rectum, rectosigmoid junction, and anus Discharge Disposition: Home or Self Care 12/11/2021 3:45 PM EST Office Visit [facility] [address] [place] [address] [place] [address] Rashad Timmons PA-C History of cancer of rectosigmoid junction (Primary Dx) 08/17/2021 Travel 08/17/2021 11:41 AM EDT - 08/17/2021 11:59 PM EDT Hospital Encounter [facility] [address] [address] Judy Gallego APRN Varicose veins of right lower extremity with edema Discharge Disposition: Home or Self Care 08/14/2021 Lab Requisition [facility] [place] [address] Dennis Mak MD Personal history of other malignant neoplasm of large intestine; Polyp of colon 08/14/2021 Orders Only [facility] [address] [facility] [address] [place] [address] Dennis Mak MD 08/11/2021 Travel 08/11/2021 1:35 PM EDT - 08/11/2021 11:59 PM EDT Hospital Encounter [facility] [address] [place] [address] Encounter for screening for COVID-19 Discharge Disposition: Home or Self Care 07/13/2021 1:49 PM EDT - 07/13/2021 11:59 PM EDT Hospital Encounter [facility] [place] [address] [facility] [address] [place] [address] History of colon cancer Discharge Disposition: Home or Self Care 07/13/2021 Travel 07/13/2021 12:30 PM EDT Office Visit [facility] [address] [place] [address] Dennis Mak MD History of colon cancer (Primary Dx) 05/05/2021 Travel 05/05/2021 3:45 PM EDT - 05/05/2021 11:59 PM EDT Hospital Encounter [facility] [address] [address] Left hand pain Discharge Disposition: Home or Self Care 05/03/2021 Travel 05/03/2021 2:00 PM EDT Office Visit [facility] [address] [facility] [address] [place] [phone] Rashad Timmons PA-C Personal history of malignant neoplasm of rectum, rectosigmoid junction, and anus (Primary Dx) 04/27/2021 Telephone [facility] [address] [place] [address] Gonzalez Vargas MD Other 04/26/2021 Travel 04/26/2021 1:34 PM EDT - 04/26/2021 11:59 PM EDT Hospital Encounter [facility] [place] [address] Rashad Timmons PA-C Personal history of malignant neoplasm of rectum, rectosigmoid junction, and anus Discharge Disposition: Home or Self Care 04/12/2021 Telephone [facility] [address] [place] [address] Dennis Mak MD Colonoscopy 02/09/2021 Travel 02/09/2021 10:55 AM EDT - 02/09/2021 11:59 PM EDT Hospital Encounter [facility] [address] [place] [id number] Cristi Sosa MD Breast asymmetry Discharge Disposition: Home or Self Care 02/06/2021 Travel 10/07/2020 Travel 10/04/2020 Telephone [facility] [place] [address] [place] [address] Lucila Rodgers RMA Orders 09/28/2020 3:04 PM EST - 09/28/2020 11:59 PM EST Hospital Encounter [facility] [address] [place] [address] Personal history of malignant neoplasm of rectum, rectosigmoid junction, and anus Discharge Disposition: Home or Self Care 09/28/2020 Travel 09/28/2020 1:40 PM EST Office Visit [facility] [address] [facility] [address] [place] [phone] Rashad Timmons PA-C Personal history of malignant neoplasm of rectum, rectosigmoid junction, and anus (Primary Dx) 09/26/2020 Travel 08/10/2020 Travel 08/02/2020 Travel 08/02/2020 1:50 PM EDT Office Visit [facility] NPTFTT [address] [place] [address] Cristi Sosa MD Chronic RLQ pain (Primary Dx); Rectosigmoid cancer (HCC) 07/28/2020 10:07 AM EDT - 07/28/2020 11:59 PM EDT Hospital Encounter [facility] [place] [address] Right lower quadrant abdominal pain; Urinary frequency Discharge Disposition: Home or Self Care 07/28/2020 Travel 07/25/2020 Travel 07/22/2020 Travel 07/22/2020 2:00 PM EDT Office Visit [facility] [address] [facility] [address] [place] [address] Rashad Timmons PA-C Right lower quadrant abdominal pain (Primary Dx); Follow-up examination following surgery; Urinary frequency; History of uterine prolapse 07/14/2020 Telephone [facility] [address] [facility] [address] [place] [address] Gonzalez Vargas MD Advice Only 06/22/2020 Telephone Adult Med [address] [facility] [address] [place] [address] Rashad Timmons PA-C Results 06/21/2020 10:20 AM EDT - 06/21/2020 11:59 PM EDT Hospital Encounter [facility] [address] [place] [address] Postop check Discharge Disposition: Home or Self Care 06/21/2020 Travel 06/21/2020 9:20 AM EDT Office Visit [facility] [address] [facility] [address] [place] [address] Gonzalez Vargas MD Postop check (Primary Dx); Rectosigmoid cancer (HCC) 06/02/2020 5:29 AM EDT - 06/04/2020 6:25 PM EDT Hospital Encounter [facility] [address] [place] [address] [place] [address] Gonzalez Vargas MD Rectosigmoid cancer (HCC); Liver lesion; Rectosigmoid cancer (HCC); Liver lesion Discharge Disposition: Home or Self Care 06/02/2020 Orders Only [facility] [place] [address] Manuel Brito MD 06/02/2020 7:30 AM EDT - 06/02/2020 2:25 PM EDT [facility] [place] [address] Gonzalez [facility]argas MD [facility] LAPAROSCOPY LOW ANTERIOR COLON RESECTION 06/02/2020 7:36 AM EDT Anesthesia Event [facility] [place] [address] Warren Hernandez MD Powell, Jeanne, BRAIDER TENDER 06/01/2020 Telephone [facility] [address] [facility] [address] [place] [address] Nelia Harding RMA Prior Authorization; Surgery 05/31/2020 Travel 05/31/2020 9:00 AM EDT Office Visit [facility] S[facility] [address] [facility] [address] [place] [address] Gonzalez Vargas MD Rectosigmoid cancer (HCC) (Primary Dx) 05/29/2020 Travel 05/29/2020 1:15 PM EDT - 05/29/2020 11:59 PM EDT Hospital Encounter [facility] CLAUDIA [address] [place] [address] Covid19, [facility] Claudia Ds Pre-op testing; Encounter for laboratory testing for COVID-19 virus Discharge Disposition: Home or Self Care 05/20/2020 12:05 PM EDT - 05/20/2020 11:59 PM EDT Hospital Encounter [facility] [place] [address] Gaby Garcia APRN Discharge Disposition: Home or Self Care 05/20/2020 Travel 05/20/2020 10:45 AM EDT - 05/20/2020 12:04 PM EDT Hospital Encounter [facility] PRE-ADMIT TESTING [facility] [place] [address] Preop testing (Primary Dx); Rectosigmoid cancer (HCC) Discharge Disposition: Home or Self Care 05/16/2020 Telephone [facility] [address] [facility] [address] [place] [address] Dennis Mak MD Other 05/13/2020 Travel 05/12/2020 Telephone [facility] Surg [facility] 271 [address] [facility] [address] [place] [address] Mari Hyatt MA Surgery 05/10/2020 Orders Only [facility] Surg [facility] [address] [facility] [address] [place] [address] Nelia Harding [facility] Rectosigmoid cancer (HCC) (Primary Dx); Liver lesion 05/09/2020 Telephone [facility] Surg [facility] [address] [facility] [address] [place] [address] Marion Curtis, A Surgery 05/06/2020 Travel 05/06/2020 11:58 AM EDT - 05/06/2020 11:59 PM EDT Hospital Encounter [facility] [place] [address] Discharge Disposition: Home or Self Care 05/05/2020 Travel 04/28/2020 Travel 04/28/2020 8:15 AM EDT - 04/28/2020 11:59 PM EDT Hospital Encounter [facility] [place] [address] Rashad Timmons PA-C Rectosigmoid cancer (HCC) Discharge Disposition: Home or Self Care 04/28/2020 8:14 AM EDT Hospital Encounter [facility] PET CT [address] [facility] [address] [place] [address] Rashad Timmons PA-C Rectosigmoid cancer (HCC) Discharge Disposition: Home or Self Care 04/27/2020 Telephone Adult Med [address] [facility] [address] [place] [address] Rashad Timmons PA-C Follow-up 04/27/2020 Travel 04/26/2020 Travel 04/26/2020 3:40 PM EDT Office Visit [facility] Surg [facility] [address] [facility] [address] [place] [address] Gonzalez Vargas MD Rectosigmoid cancer (HCC) (Primary Dx); Liver lesion 04/20/2020 Travel 04/20/2020 10:33 AM EDT - 04/20/2020 11:59 PM EDT Hospital Encounter [facility] [address] [place] [address] Dennis Mak MD Polyp of colon, unspecified part of colon, unspecified type Discharge Disposition: Home or Self Care 04/19/2020 Travel 04/15/2020 Telephone [facility] [address] [facility] 19 [place] [address] Dennis Mak MD Other 04/15/2020 Lab Requisition [facility] [place] [address] Dennis Mak MD Iron deficiency anemia, unspecified; Diaphragmatic hernia without obstruction or gangrene; Diverticulosis of large intestine without perforation or abscess without bleeding; Polyp of colon 04/15/2020 Orders Only [facility] [address] [facility] [address] [place] [address] Dennis Mak MD 04/15/2020 Travel 04/12/2020 Travel 04/12/2020 11:40 AM EDT Clinical Support [facility] [address] [facility] [address] [place] [address] Lab, [facility] Cv Encounter for laboratory testing for COVID-19 virus (Primary Dx) 04/11/2020 Telephone [facility] [address] [place] [address] Dennis Mak MD COVID-19 Rapid Testing 04/08/2020 Travel 02/09/2020 Travel 02/04/2020 Telephone [facility] [address] [place] [address] Dennis Mak MD Reschedule (d/t covid 19) 12/21/2019 Telephone [facility] [address] [facility] [address] [place] [address] Dennis Mak MD Other 12/02/2019 11:16 AM EST - 12/02/2019 11:59 PM EST Hospital Encounter [facility] [address] [place] [phone] Ming Santamaria MD Right shoulder pain, unspecified chronicity Discharge Disposition: Home or Self Care 12/02/2019 11:16 AM EST - 12/02/2019 11:59 PM EST Hospital Encounter [facility] [address] [place] [address] Ming Santamaria MD Left shoulder pain, unspecified chronicity Discharge Disposition: Home or Self Care 12/02/2019 11:15 AM EST Hospital Encounter [facility] [address] [place] [address] Ming Santamaria MD Left knee pain, unspecified chronicity Discharge Disposition: Home or Self Care 11/09/2019 Telephone [facility] [address] [facility] 19 [place] [address] Dennis Mak MD Cancellation 09/28/2019 3:30 PM EST - 09/28/2019 11:59 PM EST Hospital Encounter [facility] [address] Iron deficiency anemia, unspecified iron deficiency anemia type Discharge Disposition: Home or Self Care 09/28/2019 2:15 PM EST Office Visit [facility] [address] [facility] [address] [place] [address] Dennis Mak MD Iron deficiency anemia, unspecified iron deficiency anemia type (Primary Dx) 09/22/2019 Telephone [facility]ry [place] [address] [place] [address] Sydney Connell Scribe Other (Surgery ) 09/22/2019 Telephone [facility] Pod[facility] [address] [place] [address] Jasmyne Chapman, ABR-OE Other (powerstep issue) 09/11/2019 12:30 PM EDT - 09/11/2019 11:59 PM EDT Hospital Encounter [facility] [address] [facility] [address] [place], [place] [id number] Cristi Sosa MD Breast mass, right Discharge Disposition: Home or Self Care 09/07/2019 Telephone [facility] NPTT [address] [place] [address] Cristi Sosa MD Other (testing) 09/04/2019 1:00 PM EDT - 09/04/2019 11:59 PM EDT Hospital Encounter [facility] [address] [id number] Cristi Sosa MD Breast mass, right Discharge Disposition: Home or Self Care 09/03/2019 Orders Only [facility] NPTFTT [address] [place] [address] Jeanne Khan RN Breast mass, right (Primary Dx) 09/03/2019 Orders Only [facility] Pod[facility] [address] [place] [address] Jose Guardado, MAGUE Hallux valgus of left foot (Primary Dx); Hammer toe of left foot; Exostosis; Rheumatoid arthritis, involving unspecified site, unspecified rheumatoid factor presence (HCC) 09/03/2019 9:40 AM EDT Office Visit [facility] NPTT [address] [place] [address] Cristi Sosa MD Well woman exam (Primary Dx); Encounter for screening mammogram for breast cancer; Encounter for screening colonoscopy; Breast mass, right; FHx: BRCA gene positive 08/28/2019 2:20 PM EDT Ancillary Procedure [facility] [place] [address] [place] [address] Jose Guardado, DPM Right foot pain Discharge Disposition: Home or Self Care 08/28/2019 1:35 PM EDT Ancillary Procedure [facility] Podiatr[address] [address] Jose Guardado, DPM Left foot pain Discharge Disposition: Home or Self Care 08/28/2019 1:15 PM EDT Office Visit [facility] [place] [address] [address] Jose Guardado, DPMacie Left foot pain (Primary Dx); Hallux valgus of left foot; Right foot pain 06/01/2019 Telephone [facility] [place] [facility] [address] [place] [address] Vikas Burnham MD Other (Neuropsych testing) 05/19/2019 9:31 AM EDT - 05/20/2019 5:45 PM EDT Hospital Encounter EDG 7D ORTHO [facility] [place] [address] Prakash Viramontes MD Discharge Disposition: Home or Self Care 05/19/2019 12:30 PM EDT - 05/19/2019 1:45 PM EDT Surgery EDG [facility] [place] [address] Prakash Viramontes MD TOTAL HIP ARTHROPLASTY/REPLACE MENT-ANTERIOR OR REVISION ANTERIOR (ERICK/LANDY) 05/19/2019 11:52 AM EDT Anesthesia Event EDG [facility] [place] [address] Esther Zarate MD Braxton-Brown, Jennifer, APRN 05/07/2019 12:39 PM EDT - 05/07/2019 11:59 PM EDT Hospital Encounter [facility] EKG [facility] [place] [address] Luz Elena Bernard APRN Discharge Disposition: Home or Self Care 05/07/2019 11:52 AM EDT - 05/07/2019 12:38 PM EDT Hospital Encounter EDG LABORATORY [facility] [place] [address] Preop examination (Primary Dx); Post concussion syndrome Discharge Disposition: Home or Self Care 05/07/2019 Travel 05/07/2019 10:30 AM EDT - 05/07/2019 11:51 AM EDT Hospital Encounter EDG PRE-ADMIT TESTING [facility] [place] [address] Encounter for preadmission testing (Primary Dx); Anticoagulation adequate; Preop testing; Primary osteoarthritis of right hip Discharge Disposition: Home or Self Care 05/05/2019 11:00 AM EDT Office Visit [facility] [place] [facility] [address] [place] [address] Vikas Burnham MD Post concussion syndrome (Primary Dx) 01/28/2019 12:39 PM EDT - 01/28/2019 11:59 PM EDT Hospital Encounter [facility] [address] [address] Ming Santamaria MD Bilateral hip pain Discharge Disposition: Home or Self Care 10/30/2018 2:13 PM EST - 10/30/2018 11:59 PM EST [facility] [address] [place] [address] Ming Santamaria MD Strain of neck muscle, initial encounter; Strain of thoracic region, initial encounter; Strain of lumbar region, initial encounter Discharge Disposition: Home or Self Care 10/30/2018 2:12 PM EST [facility] [address] [address] Ming Santamaria MD Strain of neck muscle, initial encounter; Strain of thoracic region, initial encounter; Strain of lumbar region, initial encounter Discharge Disposition: Home or Self Care 10/30/2018 2:00 PM EST - 10/30/2018 2:11 PM EST Hospital Encounter [facility] MRI [address] [address] Ming Santamaria MD Strain of neck muscle, initial encounter; Strain of thoracic region, initial encounter; Strain of lumbar region, initial encounter Discharge Disposition: Home or Self Care 09/18/2018 12:36 PM EST - 09/18/2018 11:59 PM EST Hospital Encounter [facility] [place] [address] Ming Santamaria MD Traumatic injury of head, sequela Discharge Disposition: Home or Self Care 09/18/2018 12:07 PM EST - 09/18/2018 12:35 PM EST Hospital Encounter EDG NUC [facility] [place] [address] Ming Santamaria MD Discharge Disposition: Home or Self Care 09/18/2018 11:00 AM EST - 09/18/2018 12:06 PM EST Hospital Encounter EDG [facility] [place] [address] Ming Santamaria MD Low back pain, unspecified back pain laterality, unspecified chronicity, with sciatica presence unspecified Discharge Disposition: Home or Self Care 10/30/2016 10:26 AM EST - 10/30/2016 10:29 AM EST Hospital Encounter EDG D-WING XRAY [facility] [place] [address] Cough Discharge Disposition: Home or Self Care 10/30/2016 10:30 AM EST - 10/30/2016 11:59 PM EST Hospital Encounter EDG PFT LAB [facility] [place] [address] Discharge Disposition: Home or Self Care 06/14/2016 2:59 PM EDT - 06/14/2016 11:59 PM EDT Hospital [facility] [address] [address] Benita Infante Cervical radiculopathy Discharge Disposition: Home or Self Care 05/16/2016 2:15 PM EDT - 05/16/2016 3:18 PM EDT Hospital Encounter EDG D-WING XRAY [facility] [place] [address] Neck pain Discharge Disposition: Home or Self Care 05/16/2016 3:19 PM EDT - 05/16/2016 11:59 PM EDT Hospital Encounter [facility] [place] [address] Benita Infante Visit for screening Discharge Disposition: Home or Self Care 10/03/2015 1:03 PM EST - 10/03/2015 2:10 PM EST Emergency [facility] [place] [address] Jeremiah Plaza MD Transient elevated blood pressure (Primary Dx) Discharge Disposition: Home or Self Care 05/12/2015 12:48 PM EDT - 05/12/2015 11:59 PM EDT Hospital Encounter [facility] [place] [address] Benita Infante Other screening mammogram Discharge Disposition: Home or Self Care 03/05/2015 9:00 AM EDT - 03/05/2015 11:59 PM EDT Hospital Encounter EDG HOLTER MONITOR [facility] [place] [address] Benita Infante Heart rate slow Discharge Disposition: Home or Self Care 11/29/2014 9:21 AM EST - 11/29/2014 11:59 PM EST Hospital Encounter [facility] Stress Test [facility] [place] [address] Jose Curtis MD Chest pain Discharge Disposition: Home or Self Care 11/29/2014 9:21 AM EST - 11/29/2014 11:59 PM EST Hospital Encounter EDG NUC MED [facility] [place] [address] Jose Curtis MD Chest pain Discharge Disposition: Home or Self Care 11/26/2014 4:00 PM EST - 11/26/2014 11:59 PM EST Hospital Encounter [facility] EKG [facility] [place] [facility] Chest pain, unspecified Discharge Disposition: Home or Self Care 09/13/2014 1:30 PM EST - 09/13/2014 11:59 PM EST Hospital Encounter [facility] [address] [place] [address] Javed Curtis MD Leg edema; Leg pain Discharge Disposition: Home or Self Care 10/29/2013 2:01 PM EST - 10/29/2013 11:59 PM EST Hospital Encounter [facility] Mammography [facility] [place] [facility] eBnita Infante Other screening mammogram Discharge Disposition: Home or Self Care 09/02/2013 10:00 AM EDT - 09/02/2013 11:59 PM EDT Hospital Encounter [facility] XRAY [address] [place] [address] Dennis Mak MD Nausea; Sternum pain; Abdominal pain, acute, epigastric Discharge Disposition: Home or Self Care 08/27/2013 Telephone [facility] [address] [address] Dennis Mak MD Other 08/17/2013 8:00 AM EDT - 08/17/2013 9:15 AM EDT Surgery [facility] PERIOP [address] [place] [address] Moustapha Shaffer, DPMacie BUNIONECTOMY/SIMPLE/ SILVER/OFF SET V 08/17/2013 6:59 AM EDT - 08/17/2013 10:10 AM EDT Hospital Encounter [facility] SAME DAY SURGERY [address] [place] [address] Moustapha Shaffer DPM Discharge Disposition: Home or Self Care 08/12/2013 Orders Only [facility] [address] [address] Dennis Mak MD 08/12/2013 Orders Only [facility] [address] [address] Dennis Mak MD 08/12/2013 Orders Only [facility] G[facility] CV [address] [facility] [address] [place] [address] Dennis Mak MD 08/11/2013 9:00 AM EDT - 08/11/2013 11:59 PM EDT Hospital Encounter [facility] PRE-ADMIT TESTING [address] [place] [address] Pat, Ftt Discharge Disposition: Home or Self Care 07/14/2013 1:45 PM EDT - 07/14/2013 11:59 PM EDT Hospital Encounter [facility]G D-WING XRAY [facility] [place] [address] Bunion Discharge Disposition: Home or Self Care 07/14/2013 3:10 PM EDT Office Visit [facility] 651 [facility] [address] [place] [address] Dennis Mak MD Dysphagia (Primary Dx); Family history of colon cancer 07/10/2013 Telephone [facility] 651 [facility] [address] [place] [address] Dennis Mak MD Other (returning call) 07/16/2012 5:42 AM EDT - 07/16/2012 11:59 PM EDT Hospital Encounter Mobile Mammography Other Location View online schedule for mobile van location [phone] Benita Infante Other screening mammogram Discharge Disposition: Home or Self Care 07/03/2012 11:33 AM EDT - 07/03/2012 11:59 PM EDT Hospital Encounter [facility] MRI [address] [place] [address] Harvey Ba, CRYSTAL Pain in joint, other specified sites Discharge Disposition: Home or Self Care 08/02/2010 9:56 AM EDT - 08/02/2010 11:59 PM EDT Hospital Encounter [facility] [place] [address] Benita Infante Other screening mammogram Discharge Disposition: Home or Self Care 07/06/2009 12:01 AM EDT - 07/06/2009 11:59 PM EDT Hospital Encounter [facility]ST EPIC CON UNK EDG Benita Infante Evangelista 06/30/2009 12:01 AM EDT - 06/30/2009 11:59 PM EDT Hospital Encounter HST EPIC CON UNK EDG Arelis R Evangelista 04/28/2009 9:56 AM EDT - 04/28/2009 12:50 PM EDT Hospital Encounter HST OSC Adonay Ochoa MD 04/19/2009 3:26 PM EDT - 04/19/2009 11:59 PM EDT Hospital Encounter [facility] IMAGING GARRET EDG Michaela Palacio MD 11/30/2008 6:04 AM EST - 11/30/2008 10:40 AM EST Hospital Encounter HST OSC Eliseo Martel MD 06/29/2008 2:49 PM EDT - 06/29/2008 11:59 PM EDT Hospital Encounter HST RADIOLOGY EDG ArelisBenita 03/23/2008 1:52 PM EDT - 03/23/2008 11:59 PM EDT Hospital Encounter HST BREAST HEA CTR EDG ArelisBenita 03/01/2007 1:27 PM EDT - 03/01/2007 11:59 PM EDT Hospital Encounter HST LAB EDG Arcadio Blum MD 11/05/2006 9:49 AM EST - 11/05/2006 11:59 PM EST Hospital Encounter HST RADIOLOGY EDG ArelisBenita 10/18/2006 12:01 AM EST - 10/18/2006 11:59 PM EST Hospital Encounter HST RADIOLOGY EDG ArelisBenita 09/03/2006 12:01 AM EDT - 09/03/2006 11:59 PM EDT Hospital Encounter HST BREAST HEA CTR EDG rAelisBenita 02/13/2006 1:13 PM EDT - 02/13/2006 11:59 PM EDT Hospital Encounter [facility]ST RADIOLOGY EDG Michaela Palacio MD 08/07/2005 8:54 PM EDT - 08/07/2005 11:59 PM EDT Hospital Encounter HST LAB EDG Dennis Mak MD 08/01/2005 12:01 AM EDT - 08/01/2005 11:59 PM EDT Hospital Encounter HST BREAST HEA CTR EDG ArelisBenita 01/27/2005 11:10 AM EST - 01/27/2005 11:59 PM EST Hospital Encounter HST LAB EDG ArelisBenita 01/24/2005 8:58 PM EST - 01/24/2005 10:45 PM EST Emergency HST E/D GREEN EDG Demetrio Morris MD 07/13/2004 12:01 AM EDT - 07/13/2004 11:59 PM EDT Hospital Encounter HST RADIOLOGY EDG ArelisBenita 07/13/2004 12:01 AM EDT - 07/13/2004 11:59 PM EDT Hospital Encounter HST CTR WOM WEL ED ArelisBenita 06/08/2003 1:24 AM EDT - 06/08/2003 11:59 PM EDT Hospital Encounter HST CTR WOM WEL ED ArelisBenita 04/08/2003 7:54 PM EDT - 04/08/2003 9:45 PM EDT Emergency HST MINOR ER EDG Melody Martinez MD 08/27/2002 11:01 AM EDT - 08/27/2002 11:59 PM EDT Hospital Encounter HST RADIOLOGY EDG Erica Veliz 05/11/2002 6:05 AM EDT - 05/11/2002 11:59 PM EDT Hospital Encounter HST RADIOLOGY EDG ArelisBenita 04/29/2002 5:48 AM EDT - 04/29/2002 11:59 PM EDT Hospital Encounter HST RADIOLOGY EDG ArelisBenita khalil 04/22/2002 4:55 PM EDT - 04/23/2002 2:52 PM EDT Hospital Encounter HST TCA Heidi Lomeli 10/20/2001 7:03 PM EST - 10/20/2001 7:40 PM EST Emergency HST MAJOR ER EDG Lizzette Mcdaniels 04/03/2001 6:03 AM EDT - 04/03/2001 11:59 PM EDT Hospital Encounter HST WOS EDG Javed Curtis MD 03/05/2001 5:48 AM EDT - 03/05/2001 11:59 PM EDT Hospital Encounter HST EK4 EDG Benita Infante 02/27/2001 4:18 AM EDT - 02/27/2001 11:59 PM EDT Hospital Encounter HST EK4 EDG Benita Infante 02/19/2001 9:49 AM EDT - 02/19/2001 11:59 PM EDT Hospital Encounter HST EK3 EDG Benita Infante 07/26/2000 2:02 PM EDT - 07/26/2000 11:59 PM EDT Hospital Encounter HST RADIOLOGY EDG Michaela Palacio MD 07/14/2000 4:32 PM EDT - 07/14/2000 7:20 PM EDT Emergency HST MINOR ER EDG Crow Ocampo MD 05/16/2000 4:15 PM EDT - 05/16/2000 7:00 PM EDT Emergency HST MINOR ER EDG Arcadio Estrada MD 05/15/2000 3:48 PM EDT - 05/15/2000 4:40 PM EDT Emergency HST MINOR ER EDG Franko Reddy III, MD Allergies Active Allergy Reactions Criticality Noted Date Comments Morphine Other (See Comments) 07/03/2012 Chest tighness Decongestant Allergy Other (See Comments) 07/03 Headaches and throat tightening Medications vitamin E 400 unit capsule Take 450 Units by mouth daily. Active folic acid (FOLVITE) 800 mcg Oral Tablet Take 800 mcg by mouth daily. Active CANNABIDIOL, CBD, EXTRACT ORAL Take 1,500 mg by mouth. Active Melatonin 3 mg Oral Tablet Take 1 Tab by mouth nightly. Active cyanocobalamin 1,000 mcg Oral Tablet Take 1,000 mcg by mouth daily. Active UNABLE TO FIND Vitamin D3 5000 IU QD Active UNABLE TO FIND Glucosamine + Chondrotin + MSM QD Active calcium acetate,phosphat bind, (PHOSLO) 667 mg Oral Capsule Take by mouth 3 times daily (with meals). Active UNABLE TO FIND Take 600 mg by mouth daily. Calcium Active Bst-Wakzxcwjmp-T cetaminop-Caf 39-410-78-30 mg Oral Capsule Take by mouth. Ac tive lisinopriL (PRINIVIL;ZESTRI L) 10 mg Oral Tablet Take by mouth every morning. Active amLODIPine (NORVASC) 10 mg Oral Tablet Take 10 mg by mouth nightly. 2 Active dicyclomine (BENTYL) 10 mg Oral Capsule TAKE 1 CAPSULE BY MOUTH 4 TIMES A DAY NEEDED 2 Active atorvastatin (LIPITOR) 10 mg Oral Tablet Take 10 mg by mouth daily. 4 Active tiZANidine (ZANAFLEX) 2 mg Oral TabletIndication s:Rheumatoid arthritis of multiple sites 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 (HCC) TAKE 1 TABLET EVERY NIGHT 90 Tablet 1 4 Active potassium chloride (KAYCIEL) 20 mEq/15 mL Oral Liquid 20 mEq. 2 Active ibuprofen (ADVIL;MOTRIN) 800 mg Oral TabletIndication s:Rheumatoid arthritis of multiple sites 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 (HCC) Take 1 Tablet by mouth 2 times daily as needed for Pain. 180 Tablet 1 4 Active omeprazole (PRILOSEC) 20 mg Oral Capsule, Delayed Release(E.C.)Ind ications:Rheumat oid arthritis of multiple sites 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 (HCC) Take 1 Capsule by mouth daily. 90 Capsule 1 4 Active traMADoL (ULTRAM) 50 mg Oral TabletIndication s:Rheumatoid arthritis of multiple sites 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 (HCC),Primary generalized (osteo)arthritis Take 1 Tablet by mouth 2 times daily as needed for Pain (1-5 moderate pain or breakthrough). 60 Tablet 2 4 Active predniSONE (DELTASONE) 10 mg Oral TabletIndication s:Rheumatoid arthritis of multiple sites 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 (HCC) TAKE 1 TO 3 TABS DAILY NEEDED FOR FLARES 30 Tablet 1 4 Active Biotin 10 mg Oral Tablet Take by mouth daily. Active butalbital-aceta minophen-caff 50-325-40 mg Oral Capsule 5 Active tofacitinib (XELJANZ XR) 11 mg Oral Tablet Sustained Release 24 hrIndications:Rh eumatoid arthritis of multiple sites 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 (HCC),Drug therapy Take 1 Tablet by mouth daily. 90 Tablet 1 5 Active tofacitinib (XELJANZ XR) 11 mg Oral Tablet Sustained Release 24 hrIndications:Rh eumatoid arthritis of multiple sites 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 (HCC) Take 1 Tablet by mouth daily. 90 Tablet 1 5 Active fluticasone propionate (FLONASE) 50 mcg/actuation Nasl [place], Suspension 1 [place] by Nasal route daily. 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 Overview (05/10/2020): Added automatically from request for surgery [id number] Liver lesion 05/10/2020 Overview (05/10/2020): Added automatically from request for surgery [id number] Hallux valgus of left foot 09/03/2019 Overview (09/03/2019): Added automatically from request for surgery [id number] Hammer toe of left foot 09/03/2019 Overview (09/03/2019): Added automatically from request for surgery [id number] Exostosis 09/03/2019 Overview (09/03/2019): Added automatically from request for surgery [id number] Rhe[facility] 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 09/03/2019 Overview (09/03/2019): Added automatically from request for surgery [id number] Osteoarthritis of right hip 05/19/2019 Polypharmacy 05/19/2019 Psoriatic arthritis Fibromyalgia Hypertension Motion sickness Resolved Problems Problem Noted Date Diagnosed Date Resolved Date Hallux valgus (acquired) 08/17/201305/2013 Family History Medical History Relation Name Comments Colon Cancer Maternal Grandfather Colon Cancer Maternal Grandmother Colon Polyps Maternal Uncle Breast Cancer Sister Cancer Sister bone High Cholesterol Neg Hx Relation Name Status Comments Maternal Grandfather Maternal Grandmother Maternal Uncle Sister Social History Smoking Status as of 05/20/2025 Tobacco Use Types Packs/Day Years Used Date Smoking Tobacco: Never Assessed Sex and Gender Information Value Date Recorded [...] Mass Index 32.56 04/04/2025 4:27 PM EDT Plan of Treatment Upcoming Encounters Date Type Department Care Team (Late st Contact Info) Description 08/05/2025 2:00 PM EDT Office Visit [facility] [address] [place] [address] Michaela Palacio MD [address] [place] [address] Medical Devices Implanted Type 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 Device Identifier Shelf Expiration Date Model / Serial / Lot Shell Acetabular Trident Ii Tritanium D 50mm Screwhole Clust - [id number] Implanted:Qty: 1 on 05/19/2019 by Prakash Viramontes MD at [facility] Right: Hip ERICK:ORTHOPEDI CS 01/08/2024 [id number] / / [id number] Insert Trident X 3 0 Degree 36mm D - [id number] Implanted:Qty: 1 on 05/19/2019 by Prakash Viramontes MD at [facility] Right: Hip ERICK:ORTHOPEDI CS 03/05/2024 [id number] / / [id number] 6.5mm Low Profile Hex Screw 30mm - [id number] Implanted:Qty: 1 on 05/19/2019 by Prakash Viramontes MD at [facility] Right: Hip ERICK:ORTHOPEDI CS 04/06/2024 [id number] / / [id number] Size 5 Accolade Ii 127 Deg - [id number] Implanted:Qty: 1 on 05/19/2019 by Prakash Viramontes MD at [facility] Right: Hip ERICK:ORTHOPEDI 04/04/2024 [id number] / / [id number] Head Fem -5mm Ofst Tpr 36mm Hip Blx D V40 Strl - [id number] Implanted:Qty: 1 on 05/19/2019 by Prakash Viramontes MD at [facility] Right: Hip ERICK:ORTHOPEDI 06/19/2023 [id number] / / [id number] Procedures Procedure Name Priority Date/Time Associated Diagnosis Comments XR FOOT RIGHT AP LATERAL AND OBLIQUE STAT 04/04/2025 5:43 PM EDT Foot pain, right XR ANKLE RIGHT AP LATERAL AND OBLIQUE STAT 04/04/2025 5:43 PM EDT Acute right ankle pain CREATININE Routine 02/19/2025 11:47 AM EDT Rheumatoid arthritis of multiple sites 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 (HCC) Drug therapy HEPATIC FUNCTION PANEL Routine 11:47 AM EDT Rheumatoid arthritis of multiple sites 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 (HCC) Drug therapy QUANTIFERON TB GOLD Routine 02/19/2025 11:47 AM EDT Rheumatoid arthritis of multiple sites 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 (HCC) Drug therapy C-REACTIVE PROTEIN Routine 02/19/2025 11:47 AM EDT Rheumatoid arthritis of multiple sites 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 (HCC) Drug therapy SEDIMENTATION RATE AUTOMATED Routine 02/19/2025 11:47 AM EDT Rheumatoid arthritis of multiple sites 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 (HCC) Drug therapy CBC WITH DIFF Routine 02/19/2025 11:47 AM EDT Rheumatoid arthritis of multiple sites 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 (HCC) Drug therapy CT VILMA LUNG NODULE FOLLOW UP Routine 04/02/2024 1:16 PM EDT Lung nodule QUANTIFERON(R)-TB GOLD PLUS, 1-QUEST Routine 01/02/2024 2:43 PM EST SEDIMENTATION RATE AUTOMATED-QUEST Routine 01/02/2024 2:43 PM EST Rheumatoid arthritis of multiple sites 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 (HCC) Drug therapy C REACTIVE PROTEIN-QUEST Routine 024 2:43 PM EST Rheumatoid arthritis of multiple sites 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 (HCC) Drug therapy CREATININE-QUEST Routine 01/02/2024 2:43 PM EST Rheumatoid arthritis of multiple sites 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 (HCC) Drug therapy HEPATIC FUNCTION PANEL-QUEST Routine 01/02/2024 2:43 PM EST Rheumatoid arthritis of multiple sites 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 (HCC) Drug therapy CBC WITH AUTO DIFF-QUEST Routine 024 2:43 PM EST Rheumatoid arthritis of multiple sites 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 (HCC) Drug therapy CT CHEST ABDOMEN PELVIS W CONTRAST Routine 12/27/2023 2:37 PM EST Personal history of colon cancer CREATININE ISTAT Routine 12/27/2023 2:30 PM EST ESOPHAGOGASTRODUODENOSCOP Y (EGD) Routine 08/02/2023 3:34 PM EDT INTRAOP AIRWAY PLACEMENT Routine 023 3:03 PM EDT BASIC METABOLIC PANEL STAT 08/02/2023 11:48 AM EDT CBC WITH DIFF STAT 08/02/2023 11:48 AM EDT SEDIMENTATION RATE AUTOMATED-QUEST Routine 07/04/2023 2:16 PM EDT Rheumatoid arthritis of multiple sites 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 (HCC) Drug therapy C REACTIVE PROTEIN-QUEST Routine 023 2:16 PM EDT Rheumatoid arthritis of multiple sites 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 (HCC) Drug therapy COMPREHENSIVE METABOLIC PANEL-QUEST Routine 07/04/2023 2:16 PM EDT Rheumatoid arthritis of multiple sites 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 (HCC) Drug therapy CBC WITH AUTO DIFF-QUEST Routine 023 2:16 PM EDT Rheumatoid arthritis of multiple sites 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 (HCC) Drug therapy MM MAMMO DIGITAL BONY SCREEN BILAT Routine 05/16/2023 2:07 PM EDT Visit for screening mammogram CT VILMA LUNG NODULE FOLLOW UP Routine 12/25/2022 4:31 PM EST Lung nodule QUANTIFERON(R)-TB GOLD PLUS, 1-QUEST Routine 12/20/2022 11:02 AM EST C REACTIVE PROTEIN-QUEST Routine 023 11:02 AM EST CBC WITH AUTO DIFF-QUEST Routine 023 11:02 AM EST SEDIMENTATION RATE AUTOMATED-QUEST Routine 12/20/2022 11:02 AM EST HEPATIC FUNCTION PANEL-QUEST Routine 12/20/2022 11:02 AM EST CREATININE-QUEST Routine 12/20/2022 11:02 AM EST TEST IN QUESTION - MISC. QUESTION Routine 11/26/2022 11:54 AM EST CRYSTALS, SYNOVIAL FLUID-QUEST Routine 11/26/2022 11:54 AM EST CELL COUNT AND DIFFERENTIAL, SYNOVIAL FLUID-QUEST Routine 11/26/2022 11:54 AM EST CULTURE, AEROBIC BACTERIA-QUEST Routine 11/26/2022 11:54 AM EST CULTURE, ANAEROBIC BACTERIA WITH GRAM STAIN-QUEST Routine 11/26/2022 11:54 AM EST CARCINOEMBRYONIC ANTIGEN Routine 022 2:41 PM EDT Personal history of colon cancer CT CHEST ABDOMEN PELVIS W CONTRAST Routine 07/26/2022 11:03 AM EDT History of cancer of rectosigmoid junction CREATININE ISTAT Routine 07/26/2022 10:50 AM EDT MM MAMMO DIGITAL BONY SCREEN BILAT Routine 03/05/2022 10:36 AM EDT Encounter for screening mammogram for malignant neoplasm of breast CARCINOEMBRYONIC ANTIGEN Routine 022 11:00 AM EST Personal history of malignant neoplasm of rectum, rectosigmoid junction, and anus VA US LOWER EXTREMITY VENOUS RIGHT STAT 08/17/2021 12:09 PM EDT Varicose veins of right lower extremity with edema GMED COLONOSCOPY Routine 08/14/2021 11:00 AM EDT PATHOLOGY TISSUE REQUEST Routine 11:00 AM EDT Personal history of other malignant neoplasm of large intestine Polyp of colon CORONAVIRUS 2019 Routine 08/11/2021 2:06 PM EDT Encounter for screening for COVID-19 CARCINOEMBRYONIC ANTIGEN Routine 021 1:53 PM EDT History of colon cancer XR HAND LEFT PA LATERAL AND OBLIQUE Routine 05/05/2021 3:58 PM EDT Left hand pain CT CHEST ABDOMEN PELVIS W CONTRAST Routine 04/26/2021 2:18 PM EDT Personal history of malignant neoplasm of rectum, rectosigmoid junction, and anus CREATININE ISTAT Routine 04/26/2021 2:08 PM EDT MM MAMMO DIGITAL BONY DIAGN BILAT Routine 02/09/2021 11:13 AM EDT Breast asymmetry CARCINOEMBRYONIC ANTIGEN Routine 020 3:04 PM EST Personal history of malignant neoplasm of rectum, rectosigmoid junction, and anus XR FOOT RIGHT AP LATERAL AND OBLIQUE Routine 07/28/2020 3:53 PM EDT Right foot pain URINALYSIS Routine 07/28/2020 10:07 AM EDT Urinary frequency UA W/REFLEX TO CULTURE Routine 0 10:07 AM EDT Urinary frequency BASIC METABOLIC PANEL Routine 07/28/2020 10:07 AM EDT Right lower quadrant abdominal pain Urinary frequency CBC WITH DIFF Routine 07/28/2020 10:07 AM EDT Right lower quadrant abdominal pain Urinary frequency URINE CULTURE (NO STAIN) Routine 020 10:07 AM EDT Urinary frequency EXTRA HERNANDEZ URINE CX Routine 07/28/2020 10:07 AM EDT Urinary frequency MAGNESIUM LEVEL Routine 06/21/2020 10:39 AM EDT Postop check COMPREHENSIVE METABOLIC PANEL Routine 06/21/2020 10:39 AM EDT Postop check CBC WITH DIFF Routine 06/21/2020 10:39 AM EDT Postop check SCANNED RHYTHM STRIPS 06/06/2020 11:09 AM EDT SCANNED EKG 06/06/2020 11:08 AM EDT ECG AND WAVEFORMS - TELEMETRY Routine 06/04/2020 7:32 AM EDT BASIC METABOLIC PANEL Routine 06/04/2020 6:32 AM EDT ECG AND WAVEFORMS - TELEMETRY Routine 06/03/2020 10:00 PM EDT EK EKG 12 LEAD Routine 06/03/2020 2:24 PM EDT BASIC METABOLIC PANEL STAT 06/03/2020 11:06 AM EDT BASIC METABOLIC PANEL Routine 06/03/2020 10:02 AM EDT CBC WITH DIFF Routine 06/03/2020 10:02 AM EDT ADMIT Routine 06/02/2020 2:58 PM EDT PERIPHERAL BLOCK Routine 06/02/2020 2:25 PM EDT NEOGENOMICS MISMATCH REPAIR (MMR) IHC PANEL Routine 06/02/2020 1:51 PM EDT PATHOLOGY TISSUE REQUEST Routine 020 1:26 PM EDT Rectosigmoid cancer (HCC) Liver lesion INTRAOP AIRWAY PLACEMENT Routine 020 8:44 AM EDT FLEXIBLE SIGMOIDOSCOPY/COLONOSCOPY (COVERS INTRAOPERATIVE) 06/02/2020 7:36 AM EDT Rectosigmoid cancer (HCC) Liver lesion Special Needs TR DAVINCI ROBOTIC LAPAROSCOPY LOW ANTERIOR COLON RESECTION 06/02/2020 7:36 AM EDT Rectosigmoid cancer (HCC) Liver lesion Special Needs TR CORONAVIRUS 2019 Routine 05/29/2020 1:17 PM EDT Pre-op testing Encounter for laboratory testing for COVID-19 virus BB HISTORY CHECK Routine 05/20/2020 12:22 PM EDT Preop testing Rectosigmoid cancer (HCC) SURGERY DATE Routine 05/20/2020 12:22 PM EDT Preop testing Rectosigmoid cancer (HCC) ANTIBODY SCREEN IGG Routine 05/20/2020 12:22 PM EDT Preop testing Rectosigmoid cancer (HCC) ABORH Routine 05/20/2020 12:22 PM EDT Preop testing Rectosigmoid cancer (HCC) PREADMISSION TYPE AND SCREEN Routine 05/20/2020 12:22 PM EDT Preop testing Rectosigmoid cancer (HCC) CBC WITH DIFF Routine 05/20/2020 12:22 PM EDT Preop testing Rectosigmoid cancer (HCC) BASIC METABOLIC PANEL Routine 05/20/2020 12:22 PM EDT Preop testing Rectosigmoid cancer (HCC) EK EKG 12 LEAD Routine 05/20/2020 12:05 PM EDT Preop testing Rectosigmoid cancer (HCC) MRI RECTUM WWO CONTRAST Routine 04/28/20 20 12:20 PM EDT Rectosigmoid cancer (HCC) PET CT SKULL BASE TO MID THIGH Routine 04/28/2020 9:57 AM EDT Rectosigmoid cancer (HCC) GLUCOSE METER POC Routine 04/28/2020 8:[address] CHEST ABDOMEN PELVIS W CONTRAST Routine 04/20/2020 11:27 AM EDT Polyp of colon, unspecified part of colon, unspecified type CREATININE ISTAT Routine 04/20/2020 11:05 AM EDT [facility] EGD-COLONOSCOPY Routine 04/15/2020 10:20 AM EDT PATHOLOGY TISSUE REQUEST Routine 020 10:20 AM EDT Iron deficiency anemia, unspecified Diaphragmatic hernia without obstruction or gangrene Diverticulosis of large intestine without perforation or abscess without bleeding Polyp of colon CORONAVIRUS 2019 (COVID-19) - REF LAB Routine 04/12/2020 11:25 AM EDT Encounter for laboratory testing for COVID-19 virus MRI KNEE LEFT WO CONTRAST Routine 2019 1:22 PM EST Left knee pain, unspecified chronicity MRI SHOULDER RIGHT WO CONTRAST Routine 12/02/2019 12:51 PM EST Right shoulder pain, unspecified chronicity MRI SHOULDER LEFT WO CONTRAST Routine 12/02/2019 12:24 PM EST Left shoulder pain, unspecified chronicity RETICULOCYTE PANEL DIAGNOSTIC Routine 09/28/2019 3:36 PM EST Iron deficiency anemia, unspecified iron deficiency anemia type CBC Routine 09/28/2019 3:36 PM EST Iron deficiency anemia, unspecified iron deficiency anemia type FERRITIN Routine 09/28/2019 3:36 PM EST Iron deficiency anemia, unspecified iron deficiency anemia type IRON/UIBC Routine 09/28/2019 3:36 PM EST Iron deficiency anemia, unspecified iron deficiency anemia type MM US BREAST LIMITED RIGHT Routine 09/11/2019 1:02 PM EDT Breast mass, right MM MAMMO DIGITAL BONY DIAGN BILAT Routine 09/04/2019 1:32 PM EDT Breast mass, right 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 STOCK DRIVER CYTOLOGY ORDER Routine 9 11:09 AM EDT Well woman exam XR FOOT LEFT AP LATERAL AND OBLIQUE STANDING Routine 08/28/2019 1:43 PM EDT Left foot pain BASIC METABOLIC PANEL Early AM 05/20/2019 7:29 AM EDT HEMOGLOBIN AND HEMATOCRIT Timed 2018 7:29 AM EDT IP CONSULT TO HOSPITALIST Routine 2018 3:09 PM EDT Procedure Note - Rashad Jasso MD - 05/20/2019 2:35 PM EDTThis note is in progress. Images from the original note were not included. Inpatient consult to Hospitalist Consult performed by: Rashad Jasso MD Consult ordered by: Prakash Viramontes MD Hospitalist Consult Name: Khushboo Thompson : 1955 AGE: 64 y.o. Referring Physician: Prakash Viramontes MD . Date of Admit: 05/19/2019 SUBJECTIVE Reason for consult: postoperative mgmt of psoriatic arthritis andimmuno-active medications History of Present Illness: Ms Thompson is a pleasant 64 yo, presenting forplanned right hip replacement. She has a diagnosis ofinflammatory/reactive arthritis followed by Dr Palacio with Rheumatology.Thought to be Psoriatic or RA. On Xeljanz regimen weekly - does not takeconsistently on any particular day. Also takes random dose of [id number] mg up to 3 x monthly for acute flare . Uses daily chondroitin/MSM,Mobic, Tramadol, CBD oil, methocarbamol, etc.for joint and muscle painwith Fibromyalgia. Dependent on nightly melatonin. Extensive med listreviewed and updated. She is doing well postop. Eager for PT and dc home. Past Medical History: Diagnosis Date Arthritis PSORIATIC Fibromyalgia Headache(784.0) Hypertension Motion sickness Past Surgical History: Procedure Laterality Date BUNIONECTOMY Left 08/17/2013 CORRECTION BUNION DEFORMITY LEFT FOOT ; Surgeon: Moustapha Shaffer DPM;Location: [facility] MAIN OR; Service: Orthopedics COLONOSCOPY FOOT SURGERY right bunioun HAND SURGERY right HIP ARTHROPLASTY Right 05/19/2019 right hip total replacement anterior; Surgeon: Prakash Viramontes MD;Location: [facility] MAIN OR; Service: Orthopedics HIP SURGERY left replacement JOINT REPLACEMENT LEFT HIP KNEE SURGERY lt knee arthroscopy TUBAL LIGATION UPPER GASTROINTESTINAL ENDOSCOPY Medications Prior to Admission Medication Sig Dispense Refill Last Dose amLODIPine (NORVASC) 2.5 mg Oral Tablet Take 10 mg by mouth daily.UNSRUE OF DOSAGE 05/18/2019 at 1900 [DISCONTINUED] tfaloma-kzapzurqotovb-ksamjund (EXCEDRIN EXTRA STRENGTH)250-250-65 mg Oral Tablet Take 1 Tab by mouth every 6 hours as needed forPain. Taking at Unknown time B-complex with vitamin C (VITAMIN B COMPLEX-C ORAL) Take by mouth.05/18/2019 at 1900 CANNABIDIOL, CBD, EXTRACT ORAL Take 1,500 mg by mouth. 05/18/2019 [id number] cetirizine (ZYRTEC) 10 mg Oral Tablet Take 10 mg by mouth daily.05/18/2019 at 0800 cholecalciferol, vitamin D3, (VITAMIN D3) 400 unit Oral Capsule Take 1Cap by mouth daily. 200 unit 05/18/2019 at 1900 CHONDROITIN SULFATE A ORAL Take 1,250 mg by mouth. With msm Taking at05/12/19 folic acid (FOLVITE) 800 mcg Oral Tablet Take 800 mcg by mouth daily.05/18/2019 at 0800 GLUC ROCHA/CHONDRO ROCHA A/VIT C/MN (GLUCOSAMINE 1500 COMPLEX ORAL) Take bymouth. Taking at 05/12/19 hydrOXYzine (ATARAX) 25 mg Oral Tablet Take by mouth every 6 hours asneeded for Itching. Taking at 05/16/19 lisinopril (PRINIVIL;ZESTRIL) 20 mg Take 20 mg by mouth daily.05/18/2019 at 0800 Melatonin 3 mg Oral Tablet Take 1 Tab by mouth. 05/18/2019 at 2100 methocarbamol (ROBAXIN) 750 mg Oral Tablet Take 750 mg by mouth 3 timesdaily. Taking at 05/12/19 predniSONE (DELTASONE) 10 mg Oral Tablet Take 10 mg by mouth as needed.Taking at 05/12/19 [DISCONTINUED] tofacitinib (XELJANZ XR) 11 mg Oral Tablet SustainedRelease 24 hr Take 11 mg by mouth daily. Taking at Unknown time traMADol (ULTRAM) 50 mg tablet Take 50 mg by mouth every 6 hours asneeded. Taking at 05/17/19 vitamin E 400 unit capsule Take 450 Units by mouth daily. 05/18/2019 [id number] lactobacillus rhamnosus, GG, (CULTURELLE) 10 billion cell Oral CapsuleTake 1 Cap by mouth daily. Not Taking at Unknown time [DISCONTINUED] meloxicam (MOBIC) 15 mg tablet Take 15 mg by mouth daily.Not Taking at Unknown time multivitamin (THERAGRAN) per tablet Take 1 Tab by mouth daily. NotTaking at Unknown time naproxen (NAPROSYN) 500 mg Oral Tablet Take by mouth as needed forPain. Not Taking at Unknown time omeprazole (PRILOSEC) 40 mg Oral Capsule, Delayed Release(E.C.) Take 40mg by mouth daily. Not Taking at Unknown time tiZANidine (ZANAFLEX) 4 mg capsule Take 4 mg by mouth nightly. NotTaking at Unknown time Allergies: Allergies Allergen Reactions Decongestant Allergy Other (See Comments) Headaches and throat tightening Morphine Other (See Comments) Chest tighness Social History: reports that she has never smoked. She has never used smokeless tobacco.She reports that she does not drink alcohol or use drugs. Family History Problem Relation Age of Onset Colon Polyps Maternal Uncle Colon Cancer Maternal Grandmother Colon Cancer Maternal Grandfather Review of Systems: All systems reviewed and negative except for pertinentpositives noted in the HPI Review of Systems Constitutional: Negative. Negative for chills, fever and weight loss. HENT: Negative. Negative for sinus pain and sore throat. Eyes: Negative. Negative for pain, discharge and redness. Respiratory: Negative. Negative for sputum production, shortness ofbreath, wheezing and stridor. Cardiovascular: Negative. Negative for chest pain, palpitations andorthopnea. Gastrointestinal: Negative. Negative for abdominal pain, nausea andvomiting. Genitourinary: Negative. Negative for flank pain, frequency andhematuria. Musculoskeletal: Positive for back pain, joint pain and myalgias. Skin: Negative. Neurological: Negative. Negative for dizziness, tingling and tremors. Endo/Heme/Allergies: Negative. Psychiatric/Behavioral: Negative. Negative for depression, hallucinationsand substance abuse. All other systems reviewed and are negative. OBJECTIVE Physical Exam: Patient Vitals for the past 24 hrs: BP Temp Temp src Pulse Resp SpO2 05/20/19 1417 116/58 -- -- 93 18 98 % 05/20/19 0732 111/65 98.7 F (37.1 C) Oral 85 18 98 % 05/20/19 0410 107/68 98.7 F (37.1 C) Oral 78 18 100 % 05/20/19 0000 90/51 98.2 F (36.8 C) Oral 87 18 98 % 05/19/19 2037 128/62 98.9 F (37.2 C) Oral 85 18 99 % 05/19/19 1806 128/67 -- -- 70 18 98 % 05/19/19 1702 131/68 99.5 F (37.5 C) Oral 92 16 97 % 05/19/19 1606 132/78 98 F (36.7 C) Axillary 81 16 98 % 05/19/19 1527 137/77 -- -- 86 16 96 % 05/19/19 1509 130/74 98 F (36.7 C) Axillary 76 15 96 % Body mass index is 29.26 kg/m . Body surface area is 1.74 meters squared. General: Khushboo appears alert, well developed, well nourished, in noacute distress Skin: warm, well perfused and no rashes Head: Normocephalic, without obvious abnormality, atraumatic Eyes: Pupils equal, round and reactive to light and Extraocularmovements intact ENT: ENT exam normal, mucous membranes moist Neck: neck is supple and there is full active range of motion Breast: not examined Lungs: normal airflow, normal effort and symmetrical chest expansion Cardiac: RRR, no MRG heard Abdomen: abdomen is soft, nontender, and nondistended withouthepatosplenomegaly or masses, normoactive bowel sounds are present, thereare no peritoneal signs Back: negative : not examined Lymphadenopathy: no adenopathy noted Musculoskeletal/Ext: normal muscle bulk with no contractures ordeformities and right anterior hip incision c/d/i, post-operative pain asexpected, Edema: none Neurological: normal without focal findings, mental status, speechnormal, alert and oriented x3 and MARIYA Labs: CBC: Recent Labs 05/20/19 0729 HGB 9.8* HCT 30.3* Renal: Recent Labs 05/20/19 0729 NA 139 K 3.6 CL 103 CO2 25 BUN 8 CREATININE 0.79 CALCIUM 8.6* GFRAFRAM 91 GFRNONAFRAM 79 GLU 110* No results found for: CKTOTAL, CKMB, CKMBINDEX, TROPT U/A: Radiology: No results found. ACTIVE PROBLEM LIST/ ASSESSMENT/ PLAN: Active Hospital Problems Diagnosis *Osteoarthritis of right hip Polypharmacy Psoriatic arthritis (HCC) Fibromyalgia Hypertension Motion sickness *Osteoarthritis of right hip 05/19/19 right ASHLEY Ana M Advance per total joint replacement protocol PT, I/S, bowel regimen, pain control DVT prophylaxis per Ortho preference if renal function and platelet countunremarkable Polypharmacy Discussed multiple medications Discontinued dc med orders for tizanidine given home regimenmethocarbamol, holding meloxicam while on celebrex and ASA postop Advised patient to hold MSM supplement while on ASA regimen Psoriatic arthritis (HCC) Hold Xeljanz for 2 weeks until verify proper wound healing with Ortho orRheum Otherwise can maintain regimen Fibromyalgia Ok to continue extensive regimen other than meloxicam and MSM Hypertension Hold parameters on lisinopril and amlodipine Resume with caution on dc due to multiple sedating medications Motion sickness Thank you for consulting us on this patient's care. We will be happy tofollow along for additional medical treatment needs. Please call if anyfurther questions. Rashad Jasso MD IP CONSULT TO SOCIAL WORK Routine 2018 3:09 PM EDT IP CONSULT TO CARE COORDINATION Routine 05/19/2019 3:09 PM EDT XR PELVIS STAT 05/19/2019 1:39 PM EDT XR HIP INTRAOPERATIVE RIGHT 2 VIEW CUCO 05/19/2019 1:02 PM EDT FL < 1 HOUR CUCO 05/19/2019 1:02 PM EDT INTRAOP AIRWAY PLACEMENT Routine 019 12:09 PM EDT TOTAL HIP ARTHROPLASTY/REPLACEMENT- ANTERIOR OR REVISION ANTERIOR (ERICK/LANDY) 05/19/2019 11:50 AM EDT Primary osteoarthritis of right hip Special Needs erick PERIPHERAL BLOCK Routine 05/19/2019 11:30 AM EDT EK EKG 12 LEAD Routine 05/07/2019 12:39 PM EDT Preop testing Primary osteoarthritis of right hip TSH REFLEX TO FT4 Routine 05/07/2019 12:11 PM EDT Post concussion syndrome VITAMIN B12/ FOLIC ACID Routine 05/07/20 19 12:11 PM EDT Post concussion syndrome BB HISTORY CHECK Routine 05/07/2019 12:05 PM EDT Encounter for preadmission testing SURGERY DATE Routine 05/07/2019 12:05 PM EDT Encounter for preadmission testing ANTIBODY SCREEN IGG Routine 05/07/2019 12:05 PM EDT Encounter for preadmission testing ABORH Routine 05/07/2019 12:05 PM EDT Encounter for preadmission testing PREADMISSION TYPE AND SCREEN Routine 05/07/2019 12:05 PM EDT Encounter for preadmission testing PT / INR Routine 05/07/2019 12:05 PM EDT Anticoagulation adequate COMPREHENSIVE METABOLIC PANEL Routine 05/07/2019 12:05 PM EDT Encounter for preadmission testing CBC WITH DIFF Routine 05/07/2019 12:05 PM EDT Encounter for preadmission testing MRI PELVIS WO CONTRAST Routine 9 1:36 PM EDT Bilateral hip pain MRI LUMBAR SPINE WO CONTRAST Routine 10/30/2018 3:27 PM EST Strain of neck muscle, initial encounter Strain of thoracic region, initial encounter Strain of lumbar region, initial encounter MRI THORACIC SPINE WO CONTRAST Routine 10/30/2018 3:13 PM EST Strain of neck muscle, initial encounter Strain of thoracic region, initial encounter Strain of lumbar region, initial encounter MRI CERVICAL SPINE WO CONTRAST Routine 10/30/2018 2:54 PM EST Strain of neck muscle, initial encounter Strain of thoracic region, initial encounter Strain of lumbar region, initial encounter NM BONE SCAN WHOLE BODY Routine 09/18/20 18 3:23 PM EST Low back pain, unspecified back pain laterality, unspecified chronicity, with sciatica presence unspecified CT HEAD WO CONTRAST Routine 09/18/2018 12:49 PM EST Traumatic injury of head, sequela XR CHEST PA AND LATERAL Routine 10/30/20 16 11:37 AM EST Cough PULMONARY FUNCTION TEST Routine 10/30/20 16 10:41 AM EST MRI CERVICAL SPINE WO CONTRAST Routine 06/14/2016 3:41 PM EDT Cervical radiculopathy MM MAMMO DIGITAL SCREENING W CAD BILAT Routine 05/16/2016 3:48 PM EDT Visit for screening XR CERVICAL SPINE AP AND LATERAL Routine 05/16/2016 2:45 PM EDT Neck pain MM MAMMO DIGITAL SCREENING W CAD BILAT Routine 05/12/2015 1:14 PM EDT Other screening mammogram SCANNED HOLTER MONITOR 5 12:24 PM EDT HOLTER MONITOR RECORDING AND ANALYSIS Routine 03/05/2015 9:27 AM EDT Heart rate slow SCANNED RADIOLOGY REPORT 015 4:06 PM EST NM MYOCARDIAL PERFUSION SPECT STRESS AND REST Routine 11/29/2014 12:47 PM EST Chest pain ST STRESS TEST LEXISCAN Routine 11/29/19 15 12:01 PM EST Chest pain EK EKG 12 LEAD Routine 11/26/2014 4:21 PM EST Chest pain, unspecified VA US LOWER EXTREMITY VENOUS RIGHT STAT 09/13/2014 2:30 PM EST Leg edema Leg pain MM MAMMO DIGITAL SCREENING W CAD BILAT Routine 10/29/2013 2:29 PM EST Other screening mammogram FL BARIUM SWALLOW Routine 09/02/2013 11:52 AM EDT Nausea Sternum pain Abdominal pain, acute, epigastric SCANNED PRE/POST PROCEDURES 08/19/2013 12:45 AM EDT SCANNED ANESTHESIA FORMS 013 12:45 AM EDT XR FOOT LEFT AP LATERAL AND OBLIQUE STAT 08/17/2013 9:13 AM EDT BUNIONECTOMY/SIMPLE/SILVE R/OFF SET V 08/17/2013 7:59 AM EDT Hallux valgus (acquired) Special Needs DR SHAFFER CPT; 38880 LEFT FOOT 08/07/13 @ 1020 Left message for testing appointment NAIF GMED EGD Routine 08/12/2013 7:30 AM EDT GMED COLONOSCOPY Routine 08/12/2013 12:00 AM EDT SBCPT-QUEST Routine 08/12/2013 12:00 AM EDT TISSUE PATHOLOGY-QUEST Routine 3 12:00 AM EDT DIFFERENTIAL Routine 08/11/2013 9:50 AM EDT CBC WITH DIFF Routine 08/11/2013 9:50 AM EDT BASIC METABOLIC PANEL Routine 08/11/2013 9:50 AM EDT XR FOOT LEFT AP LATERAL AND OBLIQUE STANDING Routine 07/14/2013 2:10 PM EDT Bunion MM MOBILE MAMMO DIGITAL SCREEN W CAD TRAMAINE Routine 07/16/2012 1:11 PM EDT Other screening mammogram MRI HIP LEFT WO CONTRAST Routine 012 12:31 PM EDT Pain in joint, other specified sites MM MAMMO DIGITAL SCREENING W CAD BILAT Routine 08/02/2010 10:28 AM EDT Other screening mammogram SCANNED OR REPORT 06/03/2010 12:00 AM EDT SCANNED OR REPORT 06/02/2010 12:00 AM EDT MM DIGITAL DIAG UNILAT Routine 9 9:53 AM EDT MM DIG SCR TRAMAINE PANEL W/CAD Routine 06/30/2009 6:20 PM EDT KA MRI LUMBAR SPINE W/O Routine 04/19/20 09 3:45 PM EDT EK EKG REG Routine 11/27/2008 2:26 PM EST XX FOOT & TOES Routine 06/29/2008 3:01 PM EDT MM DIG SCR TRAMAINE PANEL W/CAD Routine 03/23/2008 1:57 PM EDT XX WRIST Routine 11/05/2006 10:00 AM EST FL STOMACH/ESOPHAGUS CORPORATE TREASURER Routine 006 8:00 AM EST WW MAMMO SCREEN W/CAD II PANEL Routine 09/03/2006 12:20 PM EDT XX CHEST PA & LATERAL Routine 02/13/2006 1:24 PM EDT WW MAMMO SCREEN W/CAD II PANEL Routine 08/01/2005 11:45 AM EDT Results * XR FOOT RIGHT AP LATERAL AND OBLIQUE (04/04/2025 5:43 PM EDT) Only the most recent of2 resultswithin the time period is included. Anatomical Region Laterality Modality Foot Radiographic Allyssa [...] 5:43 PM CLINICAL HISTORY: M79.671-Pain in right [id number]-[id number]-CM COMPARISON: None. PROCEDURE COMMENTS: XR FOOT RIGHT AP LATERAL AND OBLIQUE FINDINGS: No definite acute fracture or malalignment. First MTP arthrodesis with screws. Chronic appearing deformity of the third proximal phalanx. Mild soft tissue edema. Procedure Note Jeremiah Welch MD - 04/04/2025 XR FOOT RIGHT AP LATERAL AND OBLIQUE, 04/04/2025 5:43 PM CLINICAL HISTORY: M79.671-Pain in right [id number]-CM COMPARISON: None. PROCEDURE COMMENTS: XR FOOT RIGHT [...] in right ankle and joints of right [id number]-UHO-27-CM COMPARISON: None. PROCEDURE COMMENTS: XR ANKLE RIGHT AP LATERAL AND OBLIQUE FINDINGS: No acute fracture or malalignment. Soft tissue swelling around the ankle greatest anteromedially. Procedure Note Jeremiah Welch MD - 04/04/2025 XR ANKLE RIGHT AP LATERAL AND OBLIQUE, 04/04/2025 5:43 PM CLINICAL HISTORY: M25.571-Pain in right ankle and joints of right [id number]-01-CM COMPARISON: None. PROCEDURE COMMENTS: XR ANKLE RIGHT [...] DIAGNOSTIC IMAGING ORDERA BLES Final Result * QUANTIFERON TB GOLD (02/19/2025 11:47 AM EDT) Pathologist [facility] Quantiferon-TB Gold in Tube Negative Negative 02/20/2025 11:18 AM EDT [facility] Quantiferon Mitogen minus NIL 9.9759 IU/mL 02/20/2025 11:18 AM EDT [facility] Quantiferon NIL 0.0241 IU/mL 11:18 AM EDT [facility] QUANTIFERON TB1 MINUS NIL -0.0098 IU/mL 02/20/2025 11:18 AM EDT [facility] QUANTIFERON TB2 MINUS NIL -0.0089 IU/mL 02/20/2025 11:18 AM EDT [facility] Blood VENOUS BLOOD / Unknown Venipuncture / Unknown 02/19/2025 11:47 AM EDT 02/19/2025 11:47 AM EDT Narrative [facility] - 02/20/2025 11:18 AM EDT Interferon gamma release is measured for patient specimens from each of four tubes. A qualitative result of Negative, Positive or Indeterminate is based on the interpretation of four values. The Nil value adjusts for background, heterophile antibody effects or nonspecific reactivity in the patient specimen. The Mitogen- Nil value serves as the positive control for the specimen and indicates successful lymphocyte activity. The TB1-Nil and TB2-Nil represent lymphocyte reactivity that has been stimulated by two distinct TB antigens and if either is reactive it is considered a positive result. Diagnosing or excluding tuberculosis disease, and assessing the probability of latent tuberculosis infection (LTBI), requires a combination of epidemiological, medical, and diagnostic findings that should be taken into account when interpreting QuantiFERON TB Gold results. Michaela Palacio MD IMMUNOLOGY ORDERABLES Final Re sult [facility] [address] , [place] [address] * SEDIMENTATION RATE AUTOMATED (02/19/2025 11:47 AM EDT) Sed Rate 5 0 - 30 mm/hr 02/19/2025 4:06 PM EDT [facility] Blood VENOUS BLOOD / Unknown Venipuncture / Unknown 02/19/2025 11:47 AM EDT 02/19/2025 11:47 AM EDT us Michaela Palacio MD HEMATOLOGY ORDERABLES Final Re sult Performing Organization Address [facility] Co de Phone Number [facility] [address] , [address] [place], [place] [id number] * (ABNORMAL) CBC WITH DIFF (02/19/2025 11:47 AM EDT) Only the most recent of8 resultswithin the time period is included. WBC 5.5 3.7 - 10.3 x10(3)/mcL 02/19/2025 4:06 PM EDT [facility] RBC 3.88(L) 3.90 - 5.20 x10(6)/mcL 02/19/2025 4:06 PM EDT [facility] Hgb 12.2 11.2 - 15.7 g/dL 02/19/2025 4:06 PM EDT [facility] Hct 37.8 34.0 - 45.0 % 02/19/2025 4:06 PM EDT [facility] MCV 97.4 80.0 - 100.0 fL 02/19/2025 4:06 PM EDT [facility] MCH 31.4 26.0 - 34.0 pg 02/19/2025 4:06 PM EDT [facility] MCHC 32.3 30.7 - 35.5 g/dL 02/19/2025 4:06 PM EDT [facility] RDW 13.2 <=14.9 % 02/19/2025 4:06 PM EDT [facility] Platelet 292 155 - 369 x10(3)/[facility] 02/19/2025 4:06 PM EDT [facility] MPV 10.5 8.8 - 12.5 fL 02/19/2025 4:06 PM EDT [facility] Neut Percent 67.0 % 02/19/2025 4:06 PM EDT [facility] Comment:Neutrophils equals s egs plus bands Imm Gran% 0.4 % 02/19/2025 4:06 PM EDT [facility] Comment:Automated count of m etamyelocytes, myelocytes and promyelocytes. Lymph Percent 24.1 % 02/19/2025 4:06 PM EDT [facility] Sabine Percent 6.7 % 02/19/2025 4:06 PM EDT [facility] Eos Percent 1.3 % 02/19/2025 4:06 PM EDT [facility] Baso Percent 0.5 % 02/19/2025 4:06 PM EDT [facility] Neut # 3.7 1.6 - 6.1 x10(3)/[facility] 02/19/2025 4:06 PM EDT [facility] Comment:Neutrophils equals s egs plus bands IMMGRAN# 0.0 0.0 - 0.1 x10(3)/[facility] 02/19/2025 4:06 PM EDT [facility] Comment:Automated count of m etamyelocytes, myelocytes and promyelocytes. An absolute IG <0.1 is reported as 0.0. Lymph # 1.3 1.2 - 3.9 x10(3)/[facility] 02/19/2025 4:06 PM EDT [facility] Sabine # 0.4 0.3 - 0.9 x10(3)/[facility] 02/19/2025 4:06 PM EDT [facility] Eos# 0.1 0.0 - 0.5 x10(3)/[facility] 02/19/2025 4:06 PM EDT [facility] Baso # 0.0 0.0 - 0.1 x10(3)/[facility] 02/19/2025 4:06 PM EDT [facility] Blood VENOUS BLOOD / Unknown Venipuncture / Unknown 02/19/2025 11:47 AM EDT 02/19/2025 11:47 AM EDT Result Abdiaziz Palacio MD HEMATOLOGY ORDERABLES Final Re sult Performing Organization Address [facility] Co de Phone Number [facility] [employer] [address] , [place] [address] * C-REACTIVE PROTEIN (02/19/2025 11:47 AM EDT) CRP <3.00 <=5.00 mg/L 02/19/2025 8:03 PM EDT [facility] Blood VENOUS BLOOD / Unknown Venipuncture / Unknown 02/19/2025 11:47 AM EDT 02/19/2025 11:47 AM EDT Result Abdiaziz Palacio MD CHEMISTRY ORDERABLES Final Res ult Performing Organization Address [facility] Phone Number [facility] [employer] [address] , [place] [address] * CREATININE (02/19/2025 11:47 AM EDT) Creatinine 0.77 0.51 - 1.30 mg/dL 02/19/2025 8:03 PM EDT [facility] eGFR (CKD-EPIcr 2020) 83 >=60 mL/min/1.7 3 m2 02/19/2025 8:03 PM EDT [facility] [facility] Comment:Estimated GFR was ca lculated using the CKD-EPIcr (2020) equation refit without race. The equation is recommended by the National Kidney Foundation - [place] [employer] of Nephrology Task Force. Blood VENOUS BLOOD / Unknown Venipuncture / Unknown 02/19/2025 11:47 AM EDT 02/19/2025 11:47 AM EDT Result Abdiaziz Palacio MD CHEMISTRY ORDERABLES Final Res ult Performing Organization Address [facility] Co de Phone Number [facility], [address] , [place] [address] * HEPATIC FUNCTION PANEL (02/19/2025 11:47 AM EDT) Total Protein 6.7 6.4 - 8.3 gm/dL 02/19/2025 8:03 PM EDT [facility], [facility] Albumin 3.8 3.2 - 4.6 gm/dL 02/19/2025 8:03 PM EDT [facility] Bili Direct <0.2 0.0 - 0.3 mg/dL 02/19/2025 8:03 PM EDT [facility] Bili Total 0.3 0.2 - 1.3 mg/dL 02/19/2025 8:03 PM EDT [facility] AST 27 <=40 U/L 02/19/2025 8:03 PM EDT [facility] ALT 16 <=41 U/L 02/19/2025 8:03 PM EDT [facility], [facility] Alk Phos 90 36 - 123 U/L 02/19/2025 8:03 PM EDT [facility], [facility] Blood VENOUS BLOOD / Unknown Venipuncture / Unknown 02/19/2025 11:47 AM EDT 02/19/2025 11:47 AM EDT us Michaela Palacio MD CHEMISTRY ORDERABLES Final Res ult [facility], [address] , [place] [address] * CT VILMA LUNG NODULE FOLLOW UP (04/02/2024 1:16 PM EDT) Only the most recent of2 resultswithin the time period is included. Anatomical Region Laterality Modality Chest Computed Tomogra phy 04/02/2024 1:16 PM EDT Impressions 04/02/2024 2:09 PM EDT Resolution of previous faint nodule right lower lobe. Therefore inflammatory. No suspicious nodules. RECOMMENDATION (GALDINONER 2017): Resolving lesion. No further follow-up is necessary. A summary letter communicating these results will be mailed to the patient's address of record. - Note: Radiology results need to be interpreted within a comprehensive clinical context. If you have questions about the radiology report, please contact the office of the ordering clinician. Narrative 04/02/2024 2:09 PM EDT LOW DOSE LUNG CT NODULE FOLLOW-UP (NAVIGATOR), 04/02/2024 1:16 PM CLINICAL HISTORY: Follow up lung nodule. R91.1-Solitary pulmonary wtnegf-[id number]-CM. COMPARISON: 12/27/2023 PROCEDURE COMMENTS: Noncontrast, low-dose, multidetector CT chest per department protocol. Dose 1 : CT DLP Total : 44.52 mGycm DLP Spiral Max : 41.54 mGycm Maximum CTDI Vol : 1.29 mGy SSDE : 0.9288 mGy SSDE Diameter : 44.6 cm SSDE Source : Lat FINDINGS: There is no mediastinal or hilar mass or adenopathy. Mild fusiform dilatation of the ascending thoracic aorta measuring 40 mm. Tortuosity of the thoracic aorta. Tracheobronchial tree is patent. No focal infiltrates or pleural fluid collections. No suspicious pulmonary nodules. Faint 5 mm groundglass nodule peripheral aspects subpleural right lower lobe has almost completely resolved with a tiny dot like focus in this region. Additional significant findings include: Remainder of the chest is grossly stable compared to the prior examination. No significant new finding. Coronary artery calcification: Mild. Procedure Note Donal Lane III, MD - 04/02/[address] NODULE FOLLOW-UP (NAVIGATOR), 04/02/2024 1:16 PM CLINICAL HISTORY: Follow up lung nodule. R91.1-Solitary pulmonary bcmrdz-VCH-31-CM. COMPARISON: 12/27/2023 PROCEDURE COMMENTS: Noncontrast, low-dose, multidetector CT chest perdepartment protocol. Dose 1 : CT DLP Total : 44.52 mGycm DLP Spiral Max : 41.54 mGycm Maximum CTDI Vol : 1.29 mGy SSDE : 0.9288 mGy SSDE Diameter : 44.6 cm SSDE Source : Lat FINDINGS: There is no mediastinal or hilar mass or adenopathy. Mildfusiform dilatation of the ascending thoracic aorta measuring 40 mm. Tortuosity ofthe thoracic aorta. Tracheobronchial tree is patent. No focal infiltrates or pleural fluid collections. No suspicious pulmonary nodules. Faint 5 mm groundglass noduleperipheral aspects subpleural right lower lobe has almost completely resolved with atiny dot like focus in this region. Additional significant findings include: Remainder of the chest is grossly stable compared to the priorexamination. No significant new finding. Coronary artery calcification: Mild. IMPRESSION: Resolution of previous faint nodule right lower lobe. Therefore inflammatory. No suspicious nodules. RECOMMENDATION (KAYLAN 2017): Resolving lesion. No further follow-upis necessary. A summary letter communicating these results will be mailed to thepatient's address of record. - Note: Radiology results need to be interpreted within a comprehensiveclinical context. If you have questions about the radiology report, please contactthe office of the ordering clinician. Rashad Timmons PA-C IMG CT ORDERABLES Final Resu lt * SEDIMENTATION RATE AUTOMATED-QUEST (01/02/2024 2:43 PM EST) Only the most recent of3 resultswithin the time period is included. Pathologist [facility] Sed Rate 17 < OR = 30 mm/h [facility] 01/02/2024 2:43 PM EST 01/02/2024 2:43 PM EST Michaela Palacio MD [facility]-HEMATOLOGY ORDERABLES Fi nal Result [facility] [address] [place] [address] * HEPATIC FUNCTION PANEL-QUEST (01/02/2024 2:43 PM EST) Only the most recent of2 resultswithin the time period is included. Protein, Total 7.3 6.1 - 8.1 g/dL [facility] Albumin 4.4 3.6 - 5.1 g/dL [facility] Globulin 2.9 1.9 - 3.7 g/dL (calc) [facility] Albumin/Globuli n Ratio 1.5 1.0 - 2.5 (calc) [facility] Total Bilirubin 0.3 0.2 - 1.2 mg/dL [facility] Bilirubin, Direct (Micro) 0.1 < OR = 0.2 mg/dL [facility] Bilirubin, Indirect (Micro) 0.2 0.2 - 1.2 mg/dL (calc) [facility] Alk Phos 78 37 - 153 U/L [facility] AST 16 10 - 35 U/L [facility] ALT 11 6 - 29 U/L [facility] 01/02/2024 2:43 PM EST 01/02/2024 2:43 PM EST Michaela Palacio MD [facility]-CHEMISTRY ORDERABLES Fin al Result Performing Organization Address [facility] Co de Phone Number [facility] [address] [place] [address] * CREATININE-QUEST (01/02/2024 2:43 PM EST) Only the most recent of2 resultswithin the time period is included. Creatinine 0.72 0.50 - 1.05 mg/dL [facility] EGFR 91 > OR = 60 mL/min/1.73 m2 [facility] 01/02/2024 2:43 PM EST 01/02/2024 2:43 PM EST Michaela Palacio MD [facility]-CHEMISTRY ORDERABLES Fin al Result Performing Organization Address [facility] Co de Phone Number [facility] [address] [place] [address] * C REACTIVE PROTEIN-QUEST (01/02/2024 2:43 PM EST) Only the most recent of3 resultswithin the time period is included. CRP 1.2 <8.0 mg/L [facility] 01/02/2024 2:43 PM EST 01/02/2024 2:43 PM EST us Michaela Palacio MD [facility]-CHEMISTRY ORDERABLES Fin al Result [facility] [address] [facility] [address] * CBC WITH AUTO DIFF-QUEST (01/02/2024 2:43 PM EST) Only the most recent of3 resultswithin the time period is included. WBC 7.4 3.8 - 10.8 Thousand/u L [facility] RBC 4.27 3.80 - 5.10 Million/uL [facility] Hemoglobin 13.7 11.7 - 15.5 g/dL [facility] Hematocrit 40.6 35.0 - 45.0 % [facility] MCV 95.1 80.0 - 100.0 fL [facility] MCH 32.1 27.0 - 33.0 pg [facility] MCHC 33.7 32.0 - 36.0 g/dL [facility] RDW 12.5 11.0 - 15.0 % [facility] Platelets 338 140 - 400 Thousand/u L [facility] MPV 10.1 7.5 - 12.5 fL [facility] Neut# 5,002 1,500 - 7,800 cells/uL [facility] Lymph# 1,717 850 - 3,900 cells/uL [facility] Monocytes(Absol point lay ira) 540 200 - 950 cells/uL [facility] Eos 111 15 - 500 cells/uL [facility] Baso# 30 0 - 200 cells/uL [facility] Neut Percent 67.6 % [facility] Lymph Percent 23.2 % [facility] Monocytes 7.3 % [facility] Eos Percent 1.5 % [facility] Baso Percent 0.4 % [facility] 01/02/2024 2:43 PM EST 01/02/2024 2:43 PM EST Michaela Palacio MD [facility]-HEMATOLOGY ORDERABLES Fi nal Result Performing Organization Address City/[facility]/ZIP Co de Phone Number [facility] [address] [place] [address] * QUANTIFERON(R)-TB GOLD PLUS, 1-QUEST (01/02/2024 2:43 PM EST) Only the most recent of2 resultswithin the time period is included. [facility] QUANTIFERON(R)-T B GOLD PLUS, 1 TUBE NEGATIVE NEGATIVE [facility] Comment: Negative test result. M. tuberculosis complex infection unlikely. NIL 0.04 IU/mL [facility] Mitogen 8.46 IU/mL [facility] TB1-NIL <0.00 IU/mL [facility] TB2-NIL <0.00 IU/mL [facility] Comment: The Nil tube value reflects the background interferon gamma immune response of the patient's blood sample. This value has been subtracted from the patient's displayed TB and Mitogen results. Lower than expected results with the Mitogen tube prevent false-negative Quantiferon readings by detecting a patient with a potential immune suppressive condition and/or suboptimal pre-analytical specimen handling. The TB1 Antigen tube is coated with the M. tuberculosis-specific antigens designed to elicit responses from TB antigen primed CD4+ helper T-lymphocytes. The TB2 Antigen tube is coated with the M. tuberculosis-specific antigens designed to elicit responses from TB antigen primed CD4+ helper and CD8+ cytotoxic T-lymphocytes. For additional information, please refer to https://education.[employer]/faq/IZN497 (This link is being provided for informational/ educational purposes only.) 01/02/2024 2:43 PM EST 01/02/2024 2:43 PM EST Michaela Palacio MD [facility]-IMMUNOLOGY ORDERABLES Fi nal Result Performing Organization Address [facility]/ZIP Co de Phone Number [facility] [address] [place] [address] * CT CHEST ABDOMEN PELVIS W CONTRAST (12/27/2023 2:37 PM EST) Only the most recent of4 resultswithin the time period is included. Anatomical Region Laterality Modality Abdomen, Chest, Pelvis Computed Tomography 12/27/2023 2:37 PM EST Impressions 12/27/2023 3:37 PM EST Development of a curvilinear atelectasis at the medial right lower lobe lung base. Development of a small subpleural density in the right lower lobe, about 5 mm. Suspect inflammatory etiology. Recommend a follow-up CT in 3-6 months. Left T7 lateral rib fracture which appears to be subacute fracture and new since December 25, 2022. Stable CT of the abdomen or pelvis. - Note: Radiology results need to be interpreted within a comprehensive clinical context. If you have questions about the radiology report, please contact the office of the ordering clinician. Narrative 12/27/2023 3:[address] CHEST, ABDOMEN, AND PELVIS WITH CONTRAST, 12/27/2023 2:37 PM CLINICAL HISTORY: Z85.038-Personal history of other malignant neoplasm of large [id number]-[id number]-[id number]-CM. COMPARISON: December 25, [address] and July 26, 2022 chest abdomen and pelvic CT PROCEDURE COMMENTS: Multidetector CT chest abdomen and pelvis with multiplanar reconstructions. Isovue 370 IV contrast given as recorded in EPIC. Dose 1 : CT DLP Total : 1258.86 mGycm DLP Spiral Max : 1091.79 mGycm Maximum CTDI Vol : 23.23 mGy FINDINGS: CT CHEST: Development of curvilinear atelectasis at the medial right lower lobe lung base. Development of a small subpleural part solid appearing density in the right lower lobe superior segment, approximately 5 mm. (Given the history of a similar lesion on July 26, 2022 resolving on December 25, 2022 in the left upper lobe favor benign etiology.) However, recommend a follow-up CT in 3-6 months. No dominant mediastinal adenopathy. No pericardial effusion or pleural effusion. No pneumothorax. Tortuous the thoracic aorta without aneurysm. Old to rib fractures on the right demonstrated on December 25, 2022. Left T7 lateral rib fracture which appears to be a subacute fracture and new since December 25, 2022. Scoliosis of the thoracic spine. Coronary artery calcification: Mild. CT ABDOMEN AND PELVIS: Similar scattered a small hypodense lesions in the liver. Spleen, bilateral adrenal glands, pancreas are unremarkable. Unremarkable kidneys. No aortic aneurysm. No dominant retroperitoneal adenopathy. Gallstone within a phrygian cap similar to the prior study. Previous bowel surgery at the rectum. Normal appendix. No bowel obstruction. Bilateral hip prosthesis causes severe artifact in the pelvis. No ascites. Similar large lipoma in the left pelvic oblique abdominous sheaths. Degenerative sclerosis spondylosis of with the grade 1 anterolisthesis of L4 on L5. Levoscoliosis of the lumbar spine. Procedure Note Cande Soliz MD - 12/27/2023 CT CHEST, ABDOMEN, AND PELVIS WITH CONTRAST, 12/27/2023 2:37 PM CLINICAL HISTORY: Z85.038-Personal history of other malignant neoplasm oflarge onxvolfnc-RVV-99-CM. COMPARISON: December 25, [address] and July 26, [address] PROCEDURE COMMENTS: Multidetector CT chest abdomen and pelvis withmultiplanar reconstructions. Isovue 370 IV contrast given as recorded in EPIC. Dose 1 : CT DLP Total : 1258.86 mGycm DLP Spiral Max : 1091.79 mGycm Maximum CTDI Vol : 23.23 mGy FINDINGS: CT CHEST: Development of curvilinear atelectasis at the medial rightlower lobe lung base. Development of a small subpleural part solid appearing densityin the right lower lobe superior segment, approximately 5 mm. (Given the historyof a similar lesion on July 26, 2022 resolving on December 25, 2022 in theleft upper lobe favor benign etiology.) However, recommend a follow-up CT in3-6 months. No dominant mediastinal adenopathy. No pericardial effusion or pleuraleffusion. No pneumothorax. Tortuous the thoracic aorta without aneurysm. Old to rib fractures on the right demonstrated on December 25, 2022. LeftT7 lateral rib fracture which appears to be a subacute fracture and newsince December 25, 2022. Scoliosis of the thoracic spine. Coronary artery calcification: Mild. CT ABDOMEN AND PELVIS: Similar scattered a small hypodense lesions inthe liver. Spleen, bilateral adrenal glands, pancreas are unremarkable.Unremarkable kidneys. No aortic aneurysm. No dominant retroperitoneal adenopathy. Gallstone within a phrygian cap similar to the prior study. Previous bowel surgery at the rectum. Normal appendix. No bowelobstruction. Bilateral hip prosthesis causes severe artifact in the pelvis. Noascites. Similar large lipoma in the left pelvic oblique abdominous sheaths.Degenerative sclerosis spondylosis of with the grade 1 anterolisthesis of L4 on L5. Levoscoliosis of the lumbar spine. IMPRESSION: Development of a curvilinear atelectasis at the medial right lower lobe lung base. Development of a small subpleural density in the rightlower lobe, about 5 mm. Suspect inflammatory etiology. Recommend a follow-up CTin 3-6 months. Left T7 lateral rib fracture which appears to be subacute fracture and newsince December 25, 2022. Stable CT of the abdomen or pelvis. - Note: Radiology results need to be interpreted within a comprehensiveclinical context. If you have questions about the radiology report, please contactthe office of the ordering clinician. Rashad Timmons PA-C IMG CT ORDERABLES Final Resu lt * CREATININE ISTAT (12/27/2023 2:30 PM EST) Only the most recent of4 resultswithin the time period is included. Creatinine-iST AT 0.8 0.6 - 1.3 mg/dL 12/27/2023 2:33 PM EST [facility] Blood BLOOD SPECIMEN / Unknown 12/27/2023 2:30 PM EST 12/27/2023 2:33 PM EST Rashad Timmons PA-C POINT OF CARE TEST ORDERABLE S Final Result [facility] [address] [place] [address] * ESOPHAGOGASTRODUODENOSCOPY (EGD) (08/02/2023 3:34 PM EDT) Anatomical Region Laterality Modality Endoscopy Narrative 08/02/2023 4:02 PM EDT Table formatting from the original result was not included. Findings Food bolus in the lower third of the esophagus, successfully removed by pushing it into the stomach with snare. Partially removed and retrieved with snare. Benign-appearing intrinsic stricture (traversable) in the lower third of the esophagus and GE junction The stomach and duodenum appeared normal. Recommendation Repeat EGD in 3-4 weeks for dilation. Chew food well. Indication None Staff Staff Role Ilana Santiago RN Chucking And Boring Machine Operator MORGAN Hill CRNA, MD Performing Provider MORGAN Marino CRNA, DO Anesthesiologist Mai Little LPN Endoscopy Nurse Medications See Anesthesia Record. Preprocedure A history and physical has been performed, and patient medication allergies have been reviewed. The patient's tolerance of previous anesthesia has been reviewed. The risks and benefits of the procedure and the sedation options and risks were discussed with the patient. All questions were answered and informed consent obtained. ASA 3 - Patient with severe systemic disease Details of the Procedure The patient underwent general anesthesia, which was administered by an anesthesia professional. The patient's blood pressure, heart rate, level of consciousness, oxygen, respirations, ECG and ETCO2 were monitored throughout the procedure. The scope was introduced through the mouth and advanced to the second part of the duodenum. Retroflexion was performed in the cardia. The procedure was not difficult. The patient tolerated the procedure well. There were no apparent adverse events. CO2 insufflation was used for the procedure. Patient provided education and educated on specific discharge instructions. Patient educated on medications given during the procedure and new medications for discharge. Patient verbalizes understanding of discharge education. Patient stable and awaiting transport for discharge. Events Procedure Events Event Event Time ENDO SCOPE IN TIME 08/02/2023 3:08 PM ENDO SCOPE OUT TIME 08/02/2023 3:27 PM Specimens No specimens collected Leora Monique BRAIDER TENDER ENDOSCOPY PROCEDURE ORDER XAVIER Final Result * INTRAOP AIRWAY PLACEMENT (08/02/2023 3:03 PM EDT) Narrative [facility] - 08/02/2023 3:03 PM EDT [place] Otoole CRNA 08/02/2023 3:10 PM Intraop Airway Placement: Date/Time: 08/02/2023 3:03 PM Induction type: Rapid sequence Mask size: Standard adult Pre-Oxygenation: Ramping and Standard Mask ventilation: Not attempted Technique: Direct laryngoscope and Video laryngoscope Laryngoscope blade: Perez Blade size: 3 Grade view: I Airway type: ETT- cuffed Intubation assist devices: Stylet 14fr Airway location: Oral Device size: 7.5mm Secured at: 20 cm Secured by: Tape Measured from: Nares Placement verified: End tidal CO2 and Symmetric chest wall motion Condition: Unchanged and Atraumatic Insertion attempts: 1 us Reza Sky DO [place] ANESTHESIA Edited Resu lt - Final [facility] [address] [place] [id number] * (ABNORMAL) BASIC METABOLIC PANEL (08/02/2023 11:48 AM EDT) Only the most recent of8 resultswithin the time period is included. Sodium 142 136 - 145 mmol/L 08/02/2023 12:13 PM EDT [facility] Potassium 3.2(L) 3.5 - 5.0 mmol/L 08/02/2023 12:13 PM EDT [facility] Chloride 104 98 - 107 mmol/L 08/02/2023 12:13 PM EDT [facility] Total CO2 28 22 - 29 mmol/L 08/02/2023 12:13 PM EDT [facility] Anion Gap 10 7 - 16 mmol/L 08/02/2023 12:13 PM EDT [facility] Calcium 9.4 8.8 - 10.4 mg/dL 08/02/2023 12:13 PM EDT [facility] Glucose Lvl 102(H) 82 - 100 mg/dL 08/02/2023 12:13 PM EDT [facility] BUN 19 8 - 23 mg/dL 08/02/2023 12:13 PM EDT [facility] Creatinine 0.73 0.51 - 1.30 mg/dL 08/02/2023 12:13 PM EDT [facility] eGFR (CKD-EPIcr 2020) 89 >=60 mL/min/1.7 3 m2 08/02/2023 12:13 PM EDT [facility] Comment:Estimated GFR was ca lculated using the CKD-EPIcr (2020) equation refit without race. The equation is recommended by the National Kidney Foundation - [place] [employer] of Nephrology Task Force. Blood VENOUS BLOOD / Unknown Venipuncture / Unknown 08/02/2023 11:48 AM EDT 08/02/2023 11:56 AM EDT Rip Meyer MD CHEMISTRY ORDERABLES Final Resul t [facility] [address] [place] [address] * COMPREHENSIVE METABOLIC PANEL-QUEST (07/04/2023 2:16 PM EDT) Glucose 87 65 - 99 mg/dL [facility] Comment: Fasting reference interval BUN 14 7 - 25 mg/dL [facility] Creatinine 0.74 0.50 - 1.05 mg/dL [facility] EGFR 88 > OR = 60 mL/min/1.7 3m2 [facility] BUN/Creatinine Ratio SEE NOTE: 6 - 22 (calc) [facility] Comment: Not Reported: BUN and Creatinine are within reference range. Sodium 139 135 - 146 mmol/L [facility] Potassium 4.1 3.5 - 5.3 mmol/L [facility] Chloride 104 98 - 110 mmol/L [facility] CO2 29 20 - 32 mmol/L [facility] Calcium 9.2 8.6 - 10.4 mg/dL [facility] Protein, Total 6.7 6.1 - 8.1 g/dL [facility] Albumin 3.9 3.6 - 5.1 g/dL [facility] Globulin 2.8 1.9 - 3.7 g/dL (calc) [facility] Albumin/Globuli n Ratio 1.4 1.0 - 2.5 (calc) [facility] Total Bilirubin 0.3 0.2 - 1.2 mg/dL [facility] Alk Phos 74 37 - 153 U/L [facility] AST 14 10 - 35 U/L [facility] ALT 8 6 - 29 U/L [facility] 07/04/2023 2:16 PM EDT 07/04/2023 2:16 PM EDT us Michaela Palacio MD [facility]-CHEMISTRY ORDERABLES Fin al Result [facility] [address] [place] [address] * MM MAMMO DIGITAL BONY SCREEN BILAT (05/16/2023 2:07 PM EDT) Only the most recent of2 resultswithin the time period is included. Anatomical Region Laterality Modality Breast Bilateral Mammography 05/16/2023 2:51 PM EDT Impressions 05/16/2023 2:51 PM EDT Negative ([id number]) ~ RECOMMENDATION: Routine screening mammogram in 1 year. ~ DISCLAIMER * Any patient with a palpable abnormality, unexplained by breast imaging, should be managed on clinical basis by the attending physician. * Breast imaging has a false negative rate of 15%. * The patient was notified by mail of the results of this examination. *The patient's information was entered into a reminder system with a target due date for the next mammogram, in accordance with the [employer] and the Society of Breast Imaging recommendations. Narrative 05/16/2023 2:51 PM EDT Procedure:MM MAMMO DIGITAL BONY SCREEN BILAT ~ Reason for exam: screening, asymptomatic. Z12.31-Encounter for screening mammogram for malignant neoplasm of hznklk-QYZ-69-CM ~ MM MAMMO DIGITAL BONY SCREEN BILAT Bilateral CC and MLO view(s) were taken. Technologist: Gloria Monte, RT There are scattered fibroglandular densities. Prior study comparison: Compared with prior studies the most recent being 03/05/22, 02/09/21 No mammographic evidence of malignancy. ~ Procedure Note Wong Benson MD - 05/16/2023 Procedure:MM MAMMO DIGITAL BONY SCREEN BILAT ~ Reason for exam: screening, asymptomatic. Z12.31-Encounter for screening mammogram for malignant neoplasm of yxozcq-RBZ-90-CM ~ MM MAMMO DIGITAL BONY SCREEN BILAT Bilateral CC and MLO view(s) were taken. Technologist: Glorai Monte, RT There are scattered fibroglandular densities. Prior study comparison: Compared with prior studies the most recentbeing 03/05/22, 02/09/21 No mammographic evidence of malignancy. ~ IMPRESSION: Negative (NHL-Kufrmzth-7) ~ RECOMMENDATION: Routine screening mammogram in 1 year. ~ DISCLAIMER * Any patient with a palpable abnormality, unexplained by breast imaging, should be managed on clinical basis by the attending physician. * Breast imaging has a false negative rate of 15%. * The patient was notified by mail of the results of this examination. *The patient's information was entered into a reminder system with atarget due date for the next mammogram, in accordance with the [employer] and the Society of Breast Imaging recommendations. R Evangelista [place] [facility] ORDERABLES Jill l Result * (ABNORMAL) CELL COUNT AND DIFFERENTIAL, SYNOVIAL FLUID-[facility] (11/26/2022 11:54 AM EST) Specimen Source R KNEE FLUID [facility] Color DARK YELLOW(A) STRAW/YEL LOW [facility] Appearance CLOUDY(A) CLEAR/HAZ Y [facility] Total Nucleated Cell CT 42,730(H) <150 cells/uL [facility] Neutrophils, % 93(H) 0 - 24 % [facility] Lypphocytes, % 7 0 - 74 % [facility] Monocyte/Macroph age, % 0 0 - 69 % [facility] Eosinophils 0 0 - 2 % [facility] Basophils, % 0 0 % [facility] Synoviocytes, % 0 0 - 15 % [facility] Comment [facility] Comment: Visible clumping present, results of cell count may be compromised. 11/21/2022 9:0 8 AM EST Narrative [facility] - 11/26/2022 11:54 AM EST FASTING: UNKNOWN Michaela Palacio MD [facility]-BODY FLUIDS AND STOOL Fi nal Result Performing Organization Address [facility] de Phone Number [facility] [address] [place] [address] * CULTURE, ANAEROBIC BACTERIA WITH GRAM STAIN-[facility] (11/26/2022 11:54 AM EST) Bacteria Identified [facility] SEE NOTE [facility] Comment: CULTURE, ANAEROBIC BACTERIA W/GRAM STAIN Micro Number: [id number] Test Status: Final Specimen Source: R knee fluid Specimen Quality: Adequate Gram Stain: No organisms seen Result: No anaerobes isolated. 11/21/2022 9:0 8 AM EST Narrative [facility] - 11/26/2022 11:54 AM EST FASTING: UNKNOWN Michaela Palacio MD [facility]-MICROBIOLOGY ORDERABLES Final Result Performing Organization Address [facility] de Phone Number [employer] [address] [place] [address] * CULTURE, AEROBIC BACTERIA-[facility] (11/26/2022 11:54 AM EST) Aerobic Bacterial Culture SEE NOTE [facility] Comment: CULTURE, AEROBIC BACTERIA Micro Number: [id number] Test Status: Final Specimen Source: R knee fluid Specimen Quality: Adequate Result: No Growth NO COLLECTION DATE RECEIVED. WE HAVE USED THE DATE THE SPECIMEN WAS RECEIVED BY THIS LABORATORY THE COLLECTION DATE. IF THIS IS INCORRECT, PLEASE CONTACT CLIENT SERVICES. PHONE NUMBER: [phone] 11/21/2022 9:0 8 AM EST Narrative [facility] - 11/26/2022 11:54 AM EST FASTING: UNKNOWN Michaela Palacio MD [facility]-MICROBIOLOGY ORDERABLES Final Result Performing Organization Address [facility] de Phone Number [facility] [address] [place] [address] * TEST IN QUESTION - MISC. QUESTION (11/26/2022 11:54 AM EST) Service Comment Ques remi [facility] Comment: There is a question regarding the following specimen submitted and/or the test requested. QUESTION: VERIFY CARLOS NEED [id number] [facility] Resolution: [facility] Pang Comment: COMMENTS [facility] Comment: REQUESTED INFORMATION AUTHORIZED SIGNATURE TO PREVENT FURTHER DELAYS IN TESTING, PLEASE COMPLETE INFORMATION ABOVE AND FAX TO [phone] TO RESOLVE THIS ORDER. 11/21/2022 9:0 8 AM EST Narrative [facility] - 11/26/2022 11:54 AM EST FASTING: UNKNOWN Michaela Palacio MD [facility] TEST IN [facility] CODES F inal Result [facility] [address] [place] [address] * CRYSTALS, SYNOVIAL FLUID-[facility] (11/26/2022 11:54 AM EST) Specimen Source R KNEE FLUID [facility] Crystals, Synovial Fluid NONE SEEN /HPF [facility] Comment:No crystals found 11/21/2022 9:0 8 AM EST Narrative [facility] - 11/26/2022 11:54 AM EST FASTING: UNKNOWN us Michaela Palacio MD [facility]-BODY FLUIDS AND STOOL Fi nal Result [facility] [address] [place] [address] * CARCINOEMBRYONIC ANTIGEN (09/10/2022 2:41 PM EDT) Only the most recent of4 resultswithin the time period is included. CEA 1.21 ng/mL 09/10/2022 10:10 PM EDT [facility] Comment: Non-Smokers: <= 5.0 ng/mL Smokers: <= 10.0 ng/mL [facility] uses the [employer] CEA assay, which is intended to be used as an aid in the prognosis and management of cancer patients. CEA can have significant value in the monitoring of patients with diagnosed malignancies in whom changing concentrations of CEA are observed. CEA testing is not recommended as a screening test for the general population. Values obtained with different assay methods should not be used interchangeably. Blood VENOUS BLOOD / Unknown Venipuncture / Unknown 09/10/2022 2:41 PM EDT 09/10/2022 2:41 PM EDT us Rashad Timmons PA-C CHEMISTRY ORDERABLES Final R esult [facility] [address] [facility] , [place] [address] * [facility] LOWER EXTREMITY VENOUS RIGHT (08/17/2021 12:09 PM EDT) Only the most recent of2 resultswithin the time period is included. Anatomical Region Laterality Modality Vascular, Thigh, Leg Vascular Im aging 08/17/2021 12:0 0 PM EDT Impressions 08/18/2021 1:07 AM EDT CONCLUSIONS No evidence of deep vein thrombosis identified in the right lower extremity. No evidence of superficial vein thrombosis identified in the right lower extremity. No evidence of thrombosis is noted in the contralateral left common femoral vein. Narrative Procedure Note Erica Hussein DO - 08/18/2021 IMPRESSION CONCLUSIONS No evidence of deep vein thrombosis identified in the right lowerextremity. No evidence of superficial vein thrombosis identified in the right lowerextremity. No evidence of thrombosis is noted in the contralateral left commonfemoral vein. Judy Gallego BRAIDER TENDER IMG VASCULAR ORDERABLES Final Result * GMED COLONOSCOPY (08/14/2021 11:00 AM EDT) 08/14/2021 11:0 0 AM EDT Impressions [facility] - 08/14/2021 10:57 AM EDT Polyps (3 mm to 4 mm) in the descending colon. (Polypectomy). Previous Surgery in the colon. Plan: Colonoscopy in 3 years. This section is an excerpt of the full report. Dennis Mak MD GI PROCEDURE ORDERABLES Fin al Result [facility] [address] [place], [place] [id number] * PATHOLOGY TISSUE REQUEST (08/14/2021 11:00 AM EDT) Only the most recent of3 resultswithin the time period is included. CASE REPORT Surgical Pathology Case: [id number] Authorizing Provider: Dennis Mak MD Collected: 08/14/2021 1100 Ordering Location: [facility] Received: 08/14/2021 1544 Pathologist: Manuel Brito MD Specimen: Large Intestine, Left/Descending Colon 08/15/2021 11:55 AM EDT [facility] FINAL DIAGNOSIS Descending Colon Polyp x 2: - Sessile Serrated Polyps, Negative For High-Grade Dysplasia. 08/15/2021 11:55 AM EDT [facility] at 1155 EDT GROSS DESCRIPTION Received in formalin and labeled with the patient's name, medical record number, and descending colon polyps 2 is a 1.2 x 0.5 x 0.4 cm pink-mcgovern polypoid tissue. The margin is inked blue, bisected. Additionally received is a single pink-mcgovern soft tissue fragment, 0.4 cm in greatest dimension. The specimen is entirely submitted in A1. ZN 08/14/2021 3:52 PM 08/15/2021 11:55 AM EDT [facility] MICROSCOPIC DESCRIPTION Microscopic examination is performed and the findings corroborate the diagnosis. 08/15/2021 11:55 AM EDT [facility] EMBEDDED IMAGES 08/15/2021 11:55 AM EDT [facility] Tissue DESCENDING COLON STRUCTURE / Unknown 08/14/2021 11:00 AM EDT 08/14/2021 3:44 PM EDT us Dennis Mak MD PATHOLOGY ORDERABLES Final Result [facility] [address] [place] [address] [facility] [address] [place] [address] [id number] * CORONAVIRUS 2019 (08/11/2021 2:06 PM EDT) Only the most recent of2 resultswithin the time period is included. CORONAVIRUS [id number] Not Detected Not Detected 08/12/2021 1:19 PM EDT [facility] Comment: Caution should be exercised when interpreting a result of 'Not Detected'. A result of 'Not Detected' does not rule out COVID-19 and cannot be used as sole basis for treatment or patient management decisions. If COVID-19 is still suspected following a 'Not Detected' result, re-testing should be considered. This test is a nucleic acid amplification test intended for the qualitative detection of nucleic acid from the SARS-CoV-2 in upper respiratory samples collected from individuals suspected of COVID-19. Test is performed on the [employer] platform under the FDA's Emergency Use Authorization (EUA). [facility] Provider Fact Sheet: https://www.fda.gov/media/205490/download Hologic Patient Fact Sheet: https://www.fda.gov/media/728264/download Performed at [facility] [address] [place] [address] CLIA [id number] Swab BOTH ANTERIOR NARES / Unknown 08/11/2021 2:06 PM EDT 08/11/2021 2:06 PM EDT us Dennis Mak MD MICROBIOLOGY - GENERAL ORDNicola FANG Final Result [facility] [address] [facility] [place] [address] * XR HAND LEFT PA LATERAL AND OBLIQUE (05/05/2021 3:58 PM EDT) Anatomical Region Laterality Modality Hand Radiographic Allyssa ging 05/05/2021 3:58 PM EDT Impressions 05/05/2021 4:03 PM EDT Advanced primary osteoarthritis. No acute finding. - Note: Radiology results need to be interpreted within a comprehensive clinical context. If you have questions about the radiology report, please contact the office of the ordering clinician. Narrative 05/05/2021 4:03 PM EDT XR HAND LEFT PA LATERAL AND OBLIQUE, 05/05/2021 3:58 PM CLINICAL HISTORY: M79.642-Pain in left yeur-BPX-43-CM COMPARISON: None. PROCEDURE COMMENTS: XR HAND LEFT PA LATERAL AND OBLIQUE FINDINGS: Multifocal joint space narrowing and osteophyte formation, advanced at the thumb carpometacarpal and small finger PIP joints. No osseous erosion or periostitis. No soft tissue mineralization. No acute bony abnormality. Procedure Note Charlie Mata MD - 05/05/2021 XR HAND LEFT PA LATERAL AND OBLIQUE, 05/05/2021 3:58 PM CLINICAL HISTORY: M79.642-Pain in left lmym-LZD-54-CM COMPARISON: None. PROCEDURE COMMENTS: XR HAND LEFT PA LATERAL AND OBLIQUE FINDINGS: Multifocal joint space narrowing and osteophyte formation,advanced at the thumb carpometacarpal and small finger PIP joints. No osseous erosionor periostitis. No soft tissue mineralization. No acute bony abnormality. IMPRESSION: Advanced primary osteoarthritis. No acute finding. - Note: Radiology results need to be interpreted within a comprehensiveclinical context. If you have questions about the radiology report, please contactthe office of the ordering clinician. Judy Gallego BRAIDER TENDER IMG DIAGNOSTIC IMAGING ORDERAB LES Final Result * MM MAMMO DIGITAL BONY DIAGN BILAT (02/09/2021 11:13 AM EDT) Only the most recent of2 resultswithin the time period is included. Anatomical Region Laterality Modality Breast Bilateral Mammography 02/09/2021 11:2 9 AM EDT Impressions 02/09/2021 11:29 AM EDT Negative (QLJ-Amidifmr-6) ~ RECOMMENDATION: Routine screening mammogram in 1 year. ~ DISCLAIMER * Any patient with a palpable abnormality, unexplained by breast imaging, should be managed on clinical basis by the attending physician. * Breast imaging has a false negative rate of 15%. * The patient was notified by mail of the results of this examination. *The patient's information was entered into a reminder system with a target due date for the next mammogram, in accordance with the [employer] and the Society of Breast Imaging recommendations. Narrative 02/09/2021 11:29 AM EDT Procedure:MM MAMMO DIGITAL BONY DIAGN BILAT ~ Reason for exam: clinical finding. N64.89-Other specified disorders of evcfmd-EQH-38-CM. Follow-up asymmetric right breast density. No current clinical complaints. ~ MM MAMMO DIGITAL BONY DIAGN BILAT Bilateral CC and MLO view(s) were taken. Technologist: Talia Lundy, RT There are scattered fibroglandular densities. Prior study comparison: Compared with prior studies the most recent being 09/04/19, 05/16/16 , 05/12/2015. Stable asymmetric lateral right breast density. Stable left breast exam. No dominant mass/architectural distortion or suspicious calcifications. ~ Procedure Note Demetrio Horowitz DO - 02/09/2021 Procedure:MM MAMMO DIGITAL BONY DIAGN BILAT ~ Reason for exam: clinical finding. N64.89-Other specified disorders of mvlzhr-PNK-17-CM. Follow-upasymmetric right breast density. No current clinical complaints. ~ MM MAMMO DIGITAL BONY DIAGN BILAT Bilateral CC and MLO view(s) were taken. Technologist: Talia Lundy, RT There are scattered fibroglandular densities. Prior study comparison: Compared with prior studies the most recentbeing 09/04/19, 05/16/16 , 05/12/2015. Stable asymmetric lateral right breast density. Stable left breast exam.No dominant mass/architectural distortion or suspicious calcifications. ~ IMPRESSION: Negative (OAV-Cwyuhecd-5) ~ RECOMMENDATION: Routine screening mammogram in 1 year. ~ DISCLAIMER * Any patient with a palpable abnormality, unexplained by breast imaging, should be managed on clinical basis by the attending physician. * Breast imaging has a false negative rate of 15%. * The patient was notified by mail of the results of this examination. *The patient's information was entered into a reminder system with atarget due date for the next mammogram, in accordance with the [employer] and the Society of Breast Imaging recommendations. Cristi Sosa MD IMG MAMMOGRAPHY ORDERABLES F inal Result * EXTRA HERNANDEZ URINE CX (07/28/2020 10:07 AM EDT) Urine 07/28/2020 10:0 7 AM EDT 07/28/2020 10:07 AM EDT us Rashad Timmons PA-C MICROBIOLOGY - GENERAL ORDER XAVIER Final Result [address] [address] * (ABNORMAL) URINALYSIS (07/28/2020 10:07 AM EDT) UA Color Yellow 07/28/2020 3:23 PM EDT [facility] UA Appear Cloudy(A) Clear 07/28/2020 3:23 PM EDT [facility] UA Glucose Negative Negative mg/dL 07/28/2020 3:23 PM EDT [facility] UA Ketones Negative Negative mg/dL 07/28/2020 3:23 PM EDT [facility] UA Blood Negative Negative 07/28/2020 3:23 PM EDT [facility] UA pH 7.0 5.0 - 8.0 pH 07/28/2020 3:23 PM EDT [facility] UA Protein 30(A) Negative mg/dL 07/28/2020 3:23 PM EDT [facility] UA Urobilinogen Normal <=1 mg/dL 0 3:23 PM EDT [facility]A Bili Negative Negative 07/28/2020 3:23 PM EDT [facility] UA Nitrite Negative Negative 07/28/2020 3:23 PM EDT [facility]A Leuk Est Trace(A) Negative 07/28/2020 3:23 PM EDT [facility]A Spec Grav 1.013 1.001 - 1.035 no units 07/28/2020 3:23 PM EDT [facility] Comment:Reference range tasneem d for random specimens only. UA WBC 1 0 - 4 /HPF 07/28/2020 3:23 PM EDT [facility] UA RBC 1 0 - 3 /HPF 07/28/2020 3:23 PM EDT [facility]A Squam Epi 2+ /LPF 07/28/2020 3:23 PM EDT [facility] UA Mucus Trace /LPF 07/28/2020 3:23 PM EDT [facility] UA Amorph Trace /LPF 07/28/2020 3:23 PM EDT [facility] UA Bacteria Trace(A) Negative /HPF 07/28/2020 3:23 PM EDT [facility] Urine 07/28/2020 10:0 7 AM EDT 07/28/2020 10:07 AM EDT us Rashad Timmons PA-C URINE ORDERABLES Final Resul t [facility] [address] [facility] , [place] [address] * URINE CULTURE (NO STAIN) (07/28/2020 10:07 AM EDT) Culture No growth at 30 hours. 07/30/2020 10:27 AM EDT [facility] Urine 07/28/2020 10:0 7 AM EDT 07/28/2020 3:23 PM EDT Rashad Timmons PA-C MICROBIOLOGY - GENERAL ORDER XAVIER Final Result Performing Organization Address [facility] de Phone Number [facility] [address] , [place] [address] * MAGNESIUM LEVEL (06/21/2020 10:39 AM EDT) Pathologist [facility] Magnesium 2.1 1.6 - 2.4 mg/dL 06/21/2020 11:23 AM EDT [facility] Blood VENOUS BLOOD / Unknown Venipuncture / Unknown 06/21/2020 10:39 AM EDT 06/21/2020 10:39 AM EDT Gonzalez Vargas MD CHEMISTRY ORDERABLES Final R esult Performing Organization Address [facility] de Phone Number [facility] [address] , [place] [address] * (ABNORMAL) COMPREHENSIVE METABOLIC PANEL (06/21/2020 10:39 AM EDT) Only the most recent of2 resultswithin the time period is included. Sodium 142 136 - 145 mmol/L 06/21/2020 11:34 AM EDT [facility] Potassium 4.5 3.5 - 5.0 mmol/L 06/21/2020 11:34 AM EDT [facility] Chloride 101 98 - 107 mmol/L 06/21/2020 11:34 AM EDT [facility] Total CO2 29 22 - 29 mmol/L 06/21/2020 11:34 AM EDT [facility] Anion Gap 12 7 - 16 mmol/L 06/21/2020 11:34 AM EDT [facility] Calcium 10.0 8.8 - 10.4 mg/dL 06/21/2020 11:34 AM EDT [facility] Glucose Lvl 101(H) 82 - 100 mg/dL 06/21/2020 11:34 AM EDT [facility] BUN 14 8 - 23 mg/dL 06/21/2020 11:34 AM EDT [facility] Creatinine 0.66 0.51 - 1.30 mg/dL 06/21/2020 11:34 AM EDT [facility] Albumin 4.0 3.2 - 4.6 gm/dL 06/21/2020 11:34 AM EDT [facility] Total Protein 7.1 6.4 - 8.3 gm/dL 06/21/2020 11:34 AM EDT [facility] Bili Total 0.2 0.1 - 1.3 mg/dL 06/21/2020 11:34 AM EDT [facility] ALT 5 <=41 U/L 06/21/2020 11:34 AM EDT [facility] AST 12 <=40 U/L 06/21/2020 11:34 AM EDT [facility] Alk Phos 65 36 - 123 U/L 06/21/2020 11:34 AM EDT [facility] GFR Afr Am 107 >=60 mL/min/1.7 3 m2 06/21/2020 11:34 AM EDT [facility] GFR Non Afr Am 93 >=60 mL/min/1.7 3 m2 06/21/2020 11:34 AM EDT [facility] Comment: This estimated GFR was calculated using CKD-EPI equation which is modified based on ethnicity for Non Americans and Americans. Both results are reported since it is not always possible to determine the patient's ethnicity. This equation should only be used for individuals 18 and older. It has not been validated for use with the elderly (>70 years), women, or in some racial or ethnic subgroups, such as Hispanics. The equation will be less accurate in people with differences in nutritional status or muscle mass. Blood Venipuncture / Unknown 06/21/2020 10:39 AM EDT 06/21/2020 10:39 AM EDT Gonzalez Vargas MD CHEMISTRY ORDERABLES Final R esult Performing Organization Address [facility] Co de Phone Number [facility] [address] [facility], [place] [address] [facility] [address] [place] [address] * SCANNED RHYTHM STRIPS (06/06/2020 11:09 AM EDT) Anatomical Region Laterality Modality Other 06/06/2020 11:0 9 AM EDT us Unknown Unknown IMG ECG ORDERABLES Final Result * SCANNED EKG (06/06/2020 11:08 AM EDT) Anatomical Region Laterality Modality Other 06/06/2020 11:0 8 AM EDT Unknown Unknown IMG ECG ORDERABLES Final Result * ECG AND WAVEFORMS - TELEMETRY (06/04/2020 7:32 AM EDT) Only the most recent of2 resultswithin the time period is included. ECG INTERPRET NSR [facility] 06/04/2020 7:32 AM EDT Narrative [facility] - 06/04/2020 8:50 AM EDT NAIF AICU/ROUTINE IA 0.12 QRS 0.10 RR 0.72 QT 0.42 See Clinical Report link for waveform capture us Unknown Provider POINT OF CARE CARDIOLOGY Final Result Performing Organization Address City/[facility]/ZIP Co de Phone Number [facility] [address] [place] [address] * EK EKG 12 LEAD (06/03/2020 2:24 PM EDT) Only the most recent of4 resultswithin the time period is included. Anatomical Region Laterality Modality Electrocardiogra phy 06/03/2020 3:02 PM EDT Impressions 06/03/2020 3:[address] 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 - 06/02/2020 2:25 PM EDT Warren Hernandez MD 06/02/2020 2:26 PM Peripheral Block by Anesthesia Procedure Date/Time: 06/02/2020 2:14 PM Patient location during procedure: pre-op Reason for block: at surgeon's request and post-op pain management Staff and Pre-procedure checks Anesthesiologist: Warren Hernandez MD Performed: anesthesiologist Preanesthetic Checklist: Allergies confirmed, Block plan confirmed, Necessary block equipment present, Supplemental O2 applied, if needed, Anticoagulant confirmed, Block site marked, Patient identified- 2 criteria, Surgical procedure consent verified, Aseptic technique used, Drug/solution labeled, Resuscitaion equipment available, PADMINI recommended monitors applied, IV access functioning and Sedation given, if needed Immediate perianesthetic assessment completed: Yes Patient position: Prep: Chloraprep and Patient Draped Monitoring: Mental status assessed, O2 Sat and EKG Peripheral Block Block type: TAP Block Laterality: Bilateral Injection technique: single-shot Medication: 50 (15 mL 1/4 %bup + 10 mL exparel each side)ml, Bupivacaine 0.5% and Exparel 1.33% Needle Needle type: Stimuplex Needle gauge: 21 G Needle length: 4 in (100mm) Nerve localization: ultrasound guidance (TAP Block: External Oblique muscle, Internal Oblique muscle and Transversus Abdominis muscle are identified; the tip of the needle and the spread of the local anesthetic between Internal Oblique muscle and Transversus Abdominus muscle is visualized.) Ultrasound probe: linear Ultrasound needle approach: in-plane Assessment Block success: a full evaluation pending Events: Uneventful Heart rate change: no Blood aspirated: no Paresthesia pain: none Resistance on injection: normal Intermittent incremental injection LA at 5ml LA surrounding nerve by ultrasonographc visualization us Warren Hernandez MD ANESTHESIA [place] [address] * [employer] MISMATCH REPAIR (MMR) IHC PANEL (06/02/2020 1:51 PM EDT) [employer] Result H&E (Comments) = B) Sigmoid Colon [...] MLH1 in formalin-fixed paraffin-embedded tissue sections. A polymerPaper.li based system was used for detection. MLH1 (Disclaimer) = MMR references ranges are based on [employer]` internal validation, and we recommend cases with equivocal staining be confirmed with microsatellite instability (MSI) testing. MLH1 (Control Statement) = The digitized slide(s) was/were adequate for quantitative image analysis. All controls were reviewed and showed appropriate positive and negative immunoreactivity. MLH1 (Image Analysis Statement) = Whole slide image capture was performed with the Aperio ScanScope and quantitative computer-assisted image analysis using [employer] software. MSH2 (Intended Use) = Mismatch repair [...] MSH2 in formalin-fixed paraffin-embedded tissue sections. A polymerPaper.li based system was used for detection. MSH6 [...] MSH6 in formalin-fixed paraffin-embedded tissue sections. A polymerPaper.li based system was used for detection. PMS2 [...] PMS2 in formalin-fixed paraffin-embedded tissue sections. A [employer] based system was used for detection. [facility] 06/02/2020 1:51 PM EDT Narrative [facility] - 06/13/2020 1:22 PM EDT Requesting Provider: Gonzalez Hollingsworth Specimen = [id number] us Manuel Brito MD PATHOLOGY ORDERABLES Final Res ult [facility] [address] [place] [address] * INTRAOP AIRWAY PLACEMENT (06/02/2020 8:44 AM EDT) Narrative [facility] - 06/02/2020 8:44 AM EDT Annalise Anderson 06/02/2020 8:46 AM Intraop Airway Placement: Date/Time: 06/02/2020 7:47 AM Induction type: IV Mask size: Standard adult Pre-Oxygenation: Standard Mask ventilation: Not attempted Technique: Video laryngoscope Laryngoscope blade: Perez Blade size: 3 Grade view: I Airway type: ETT- cuffed Topical Anesthetic/Lubricant: Lidocaine 2% jelly Intubation assist devices: Stylet 14fr Airway location: Oral Device size: 7mm Secured at: 22 cm Secured by: Tape Measured from: Gum Placement verified: Auscultation, End tidal CO2 and Symmetric chest wall motion Condition: Atraumatic and Unchanged Insertion attempts: 1 Attempt 1 by: AADAMS RRNA Title: RNSA Kayode To MD IA ANESTHESIA Edited Result - Final Performing Organization Address [facility] Co de Phone Number [facility] [address] [place] [address] * BB HISTORY CHECK (05/20/2020 12:22 PM EDT) Only the most recent of2 resultswithin the time period is included. BB HISTORY CHECK (1) Previous History OK 05/20/2020 12:53 PM EDT [facility] Blood VENOUS BLOOD / Unknown Venipuncture / Unknown 05/20/2020 12:22 PM EDT 05/20/2020 12:33 PM EDT Gaby Garcia [facility] ORDERABLES Final R esult Performing Organization Address [facility] Co de Phone Number [facility] [address] * SURGERY DATE (05/20/2020 12:22 PM EDT) Only the most recent of2 resultswithin the time period is included. Surgery Date (1) Complete 05/20/2020 12:54 PM EDT [facility] Blood VENOUS BLOOD / Unknown Venipuncture / Unknown 05/20/2020 12:22 PM EDT 05/20/2020 12:33 PM EDT Gaby Garcia [facility] ORDERABLES Final R esult Performing Organization Address [facility] Co de Phone Number [facility] [address] * ABORH (05/20/2020 12:22 PM EDT) Only the most recent of2 resultswithin the time period is included. ABORH Int A POS 05/20/2020 1:2 0 PM EDT [facility] Blood VENOUS BLOOD / Unknown Venipuncture / Unknown 05/20/2020 12:22 PM EDT 05/20/2020 12:33 PM EDT Gaby Garcia [facility] ORDERABLES Final R esult Performing Organization Address [facility]/ZIP Co de Phone Number [facility] [address] [place] [address] * ANTIBODY SCREEN IGG (05/20/2020 12:22 PM EDT) Only the most recent of2 resultswithin the time period is included. ABSC IgG Int Negative 05/20/2020 1:34 PM EDT [facility]OD [facility] Blood VENOUS BLOOD / Unknown Venipuncture / Unknown 05/20/2020 12:22 PM EDT 05/20/2020 12:33 PM EDT Gaby Garcia [facility] BLOOD B[facility] ORDERABLES Final R [facility] Performing Organization Address [facility] Co de Phone Number [facility] [address] [address] * MRI RECTUM WWO CONTRAST (04/28/2020 12:20 PM EDT) Anatomical Region Laterality Modality Pelvis Magnetic Resonan ce 04/28/2020 12:2 0 PM EDT Addenda Addendum by Jeremiah Welch MD on 05/06/2020 2:10 PM EDT Addendum: Repeat imaging with the pessary device removed. The superior aspect of the vagina is separate from the tumor. While imaging planes on repeat imaging are partially obliqued limiting evaluation. Again demonstrated are areas of muscular propria ill-definition although equivocal extension through the muscularis propria. Tumor again appears to be T3 a. Other findings are unchanged. IMPRESSION: Repeat imaging with pessary device removed. The tumor is clearly separate from the superior vagina. Small breaks within the muscular propria with suspected minimal extension through again likely early T3 tumor. 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 Farrell findings: MRI rectal cancer T category is: 8 3 Maximum EMD of invasion is: 1-2 mm Minimum tumor to MRF distance is: Inseparable from the vagina Low rectal tumor component: Not applicable Mesorectal nodes: None Extra mesorectal nodes: None - Narrative 04/28/2020 1:46 PM EDT MRI PELVIS, RECTAL CANCER STAGING, 04/28/2020 12:20 PM CLINICAL HISTORY: Staging of rectal carcinoma. [id number] neoplasm of rectosigmoid [id number] COMPARISON: Prior PET and CT PROCEDURE COMMENTS: Multiplanar multiecho MR imaging of the pelvis for staging of rectal carcinoma. Imaging performed prior to and after 13 mL intravenous contrast. FINDINGS: Bilateral hip prostheses create artifact somewhat limiting evaluation. Diffusion is essentially nondiagnostic. Tumor location: High rectal sigmoid junction Distance from anorectal angle to distal tumor margin: At least 15 cm. Relationship to the anterior peritoneal reflection: Above Craniocaudal length of tumor: Approximately 3 cm Extramural depth of the lesion (use 0 mm for T1 or T2 tumor): Muscular propria irregular and indistinct through portions with likely minimal extension through of 1 to 2 mm (images 18 through 22, series 9). Evaluation is somewhat limited due to tortuosity T category:T2/early T3 including spiculations Shortness distance of tumor to the mesorectal fascia: The tumor is inseparable from the superior vagina with a pessary in place (image 14, series 2; image 20-21, series 9) Structures with possible invasion: Superior vagina at least abutment. Relationship to sphincter, for low rectal tumor: Not applicable Mesorectal lymph nodes: Several small benign-appearing nodes Extra mesorectal lymph nodes: None Other findings: Procedure Note Jeremiah Welch MD - 04/28/2020 MRI PELVIS, RECTAL CANCER STAGING, 04/28/2020 12:20 PM CLINICAL HISTORY: Staging of rectal carcinoma. [id number] neoplasmof rectosigmoid [id number] COMPARISON: Prior PET and CT PROCEDURE COMMENTS: Multiplanar multiecho MR imaging of the pelvis forstaging of rectal carcinoma. Imaging performed prior to and after 13 mLintravenous contrast. FINDINGS: Bilateral hip prostheses create artifact somewhat limiting evaluation.Diffusion is essentially nondiagnostic. Tumor location: High rectal sigmoid junction Distance from anorectal angle to distal tumor margin: At least 15 cm. Relationship to the anterior peritoneal reflection: Above Craniocaudal length of tumor: Approximately 3 cm Extramural depth of the lesion (use 0 mm for T1 or T2 tumor): Muscularpropria irregular and indistinct through portions with likely minimal extensionthrough of 1 to 2 mm (images 18 through 22, series 9). Evaluation is somewhatlimited due to tortuosity T category:T2/early T3 including spiculations Shortness distance of tumor to the mesorectal fascia: The tumor isinseparable from the superior vagina with a pessary in place (image 14, series 2;image 20-21, series 9) Structures with possible invasion: Superior vagina at least abutment. 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 Farrell findings: MRI rectal cancer T category is: 8 3 Maximum EMD of invasion is: 1-2 mm Minimum tumor to MRF distance is: Inseparable from the vagina Low rectal tumor component: Not applicable Mesorectal nodes: None Extra mesorectal nodes: None - Rashad Timmons PA-C IMG MRI ORDERABLES Edited Re sult - Final * PET CT SKULL BASE TO MID THIGH (04/28/2020 9:57 AM EDT) Anatomical Region Laterality Modality Positron Emissio n Tomography (PET) 04/28/2020 9:57 AM EDT Impressions 04/28/2020 11:08 AM EDT 1. 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 2. No evidence of hypermetabolic metastatic disease. - Narrative 04/28/2020 11:[address] SKULL BASE TO MID THIGH, 04/28/2020 9:57 AM CLINICAL HISTORY: Invasive adenocarcinoma of the rectosigmoid colon, staging. COMPARISON: CT chest/abdomen/pelvis 04/20/2020. PROCEDURE COMMENTS: 13.8 mCi 18F-fluorodeoxyglucose (FDG) was administered I.V. Serum blood glucose at the time of the injection was 96 mg/dL. Uptake time was approximately 45 minutes. Scanning performed from the skull vertex to the mid thigh. As an integrated part of the study, noncontrast CT scanning performed for attenuation correction and localization purposes. FINDINGS: Normal distribution of physiologic background activity was present including gastrointestinal, genitourinary, cardiovascular, neurologic systems. Index activity in the right lobe of the liver was 3.1 SUV max. Head and Neck: No hypermetabolic foci. Chest: No hypermetabolic foci. Abdomen and pelvis: Intense FDG uptake centered at the rectosigmoid junction (maximum SUV 16.1), likely relating to patient's known malignancy. No additional hypermetabolic foci in the abdomen or pelvis. No abnormal uptake identified within the subcentimeter low-attenuation lesions in the liver, although their small size limits evaluation. Musculoskeletal: No FDG uptake associated with the previously described fat-containing mass of the left anterior abdominal wall musculature, most suggestive of a lipoma. Procedure Note Felix Santos MD - 04/28/[address] SKULL BASE TO MID THIGH, 04/28/2020 9:57 AM CLINICAL HISTORY: Invasive adenocarcinoma of the rectosigmoid colon,staging. COMPARISON: CT chest/abdomen/pelvis 04/20/2020. PROCEDURE COMMENTS: 13.8 mCi 18F-fluorodeoxyglucose (FDG) wasadministered I.V. Serum blood glucose at the time of the injection was 96 mg/dL. Uptake timewas approximately 45 minutes. Scanning performed from the skull vertex to themid thigh. As an integrated part of the study, noncontrast CT scanningperformed for attenuation correction and localization purposes. FINDINGS: Normal distribution of physiologic background activity waspresent including gastrointestinal, genitourinary, cardiovascular, neurologicsystems. Index activity in the right lobe of the liver was 3.1 SUV max. Head and Neck: No hypermetabolic foci. Chest: No hypermetabolic foci. Abdomen and pelvis: Intense FDG uptake centered at the rectosigmoidjunction (maximum SUV 16.1), likely relating to patient's known malignancy. Noadditional hypermetabolic foci in the abdomen or pelvis. No abnormal uptakeidentified within the subcentimeter low-attenuation lesions in the liver, althoughtheir small size limits evaluation. Musculoskeletal: No FDG uptake associated with the previously described fat-containing mass of the left anterior abdominal wall musculature,most suggestive of a lipoma. IMPRESSION: 1. 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 2. No evidence of hypermetabolic metastatic disease. - Rashad Timmons PA-C IMG PET ORDERABLES Final Res ult * GLUCOSE METER POC (04/28/2020 8:34 AM EDT) [facility] Glucose Meter POC 96 70 - 100 mg/dL 04/28/2020 8:35 AM EDT [facility] Sample Type Capillary 04/28/2020 8:35 AM EDT [facility] Patient Status Non-Critical Patient 04/28/2020 8:35 AM EDT [facility] Blood BLOOD SPECIMEN / Unknown 04/28/2020 8:34 AM EDT 04/28/2020 8:35 AM EDT Rashad Timmons PA-C POINT OF CARE TEST ORDERABLE S Final Result Performing Organization Address [facility] Phone Number [facility] [address] [place] [address] * GMED EGD-COLONOSCOPY (04/15/2020 10:20 AM EDT) 04/15/2020 10:2 0 AM EDT Impressions [facility] - 04/15/2020 11:24 AM EDT Plan: CT scan chest/abdomen/pelvis with contrast Colonoscopy in 1 year. This section is an excerpt of the full report. Dennis Mak MD GI PROCEDURE ORDERABLES Fin al Result Performing Organization Address [facility] Co de Phone Number [facility] [address] [place] [address] * CORONAVIRUS 2019 (COVID-19) - REF LAB (04/12/2020 11:25 AM EDT) [facility] CORONAVIRUS [id number] Not Detected 04/14/2020 11:25 AM EDT [facility] Comment: INTERPRETIVE INFORMATION: SARS-CoV-2 (COVID-19) by ROSA MARIA This test should be ordered for the detection of the 2019 novel coronavirus SARS-CoV-2 in individuals who meet SARS-CoV-2 clinical and/or epidemiological criteria. The Coronavirus SARS-CoV-2 (COVID-19) by nucleic acid amplification test is for in vitro diagnostic use under the FDA Emergency Use Authorization (EUA) for US laboratories certified under CLIA to perform high complexity tests. This test has not been FDA cleared or approved. In compliance with this authorization, please visit [email or web address] for more information and to access the applicable information sheets. If the result is Not Detected, this does not rule out the presence of PCR inhibitors in the patient specimen or assay specific nucleic acid in concentrations below the level of detection by the assay. Performed by [facility] [address] [place] [address] [email or web address], Craig Machuca MD, Lab. Director Coronavirus [employer] [facility] Nasopharyngeal 04/14/2020 11:25 AM EDT [facility] Swab NASOPHARYNGEAL STRUCTURE / Unknown 04/12/2020 11:25 AM EDT 04/12/2020 11:25 AM EDT us Dennis Mak MD LAB SEND OUT ORDERABLES Fin al Result [facility] [address] [place] [address] * MRI KNEE LEFT WO CONTRAST (12/02/2019 1:22 PM EST) Anatomical Region Laterality Modality Knee, Patella Magnetic Resonan ce 12/02/2019 1:22 PM EST Impressions 12/03/2019 9:11 PM EST 1. In the context of advanced medial and lateral compartment osteoarthrosis and prior surgery, there is attenuation of the lateral greater than medial menisci. A small flap or meniscal ossicle is noted adjacent to the posterior horn/root junction. 2. Intact cruciate and collateral ligaments. 3. Advanced tricompartmental osteoarthrosis. Narrative 12/03/2019 9:11 PM EST MRI KNEE LEFT WO CONTRAST, 12/02/2019. CLINICAL HISTORY: M25.562-Pain in left [id number] COMPARISON: None. TECHNIQUE: Multiplanar, multisequence MR images of the left knee were obtained without the use of contrast. FINDINGS: The patient's Epic Snapshot reports a history of left knee arthroscopy with date unknown . MENISCI: The medial meniscal posterior horn and body segments are attenuated along the free edge margin. There is no parameniscal cyst. A meniscal flap or small ossicle is noted at the posterior horn and root junction measuring approximately 0.4 cm. The lateral meniscus is significantly attenuated, including essentially the entirety of the body and anterior horn segments. LIGAMENTS: The ACL and PCL are intact. The MCL is intact. Iliotibial band, LCL, and biceps femoris tendon are intact. The popliteus tendon is intact. FEMOROTIBIAL STRUCTURES & ARTICULATIONS: There is no fracture or malalignment. Advanced medial and lateral compartment osteoarthritic changes are present. There is global chondral attenuation of the weightbearing surfaces with joint line osteophytosis. There is also central tibial eminence and notch osteophytosis. Reactive subchondral marrow edema is present in the central and marginal aspects of the lateral compartment. EXTENSOR MECHANISM & PATELLOFEMORAL: The extensor mechanism is intact. Advanced patellofemoral degenerative changes are present with global chondral denudement. FLUID: There is a moderate joint effusion and distention of a slitlike septated Lane cyst. Procedure Note Maciel Perry MD - 12/03/2019 MRI KNEE LEFT WO CONTRAST, 12/02/2019. CLINICAL HISTORY: M25.562-Pain in left [id number] COMPARISON: None. TECHNIQUE: Multiplanar, multisequence MR images of the left knee wereobtained without the use of contrast. FINDINGS: The patient's Epic Snapshot reports a history of left kneearthroscopy with date unknown . MENISCI: The medial meniscal posterior horn and body segments areattenuated along the free edge margin. There is no parameniscal cyst. A meniscal flapor small ossicle is noted at the posterior horn and root junction measuring approximately 0.4 cm. The lateral meniscus is significantly attenuated, including essentiallythe entirety of the body and anterior horn segments. LIGAMENTS: The ACL and PCL are intact. The MCL is intact. Iliotibial band,LCL, and biceps femoris tendon are intact. The popliteus tendon is intact. FEMOROTIBIAL STRUCTURES & ARTICULATIONS: There is no fracture ormalalignment. Advanced medial and lateral compartment osteoarthritic changes arepresent. There is global chondral attenuation of the weightbearing surfaces withjoint line osteophytosis. There is also central tibial eminence and notch osteophytosis. Reactive subchondral marrow edema is present in the centraland marginal aspects of the lateral compartment. EXTENSOR MECHANISM & PATELLOFEMORAL: The extensor mechanism is intact. Advanced patellofemoral degenerative changes are present with globalchondral denudement. FLUID: There is a moderate joint effusion and distention of a slitlikeseptated Lane cyst. IMPRESSION: 1. In the context of advanced medial and lateral compartmentosteoarthrosis and prior surgery, there is attenuation of the lateral greater than medialmenisci. A small flap or meniscal ossicle is noted adjacent to the posteriorhorn/root junction. 2. Intact cruciate and collateral ligaments. 3. Advanced tricompartmental osteoarthrosis. us Ming Santamaria MD [facility] [place] ORDERABLES Final Res ult * MRI SHOULDER RIGHT WO CONTRAST (12/02/2019 12:51 PM EST) Anatomical Region Laterality Modality Shoulder Magnetic Resonan ce 12/02/2019 12:5 1 PM EST Impressions 12/03/2019 9:18 PM EST 1. Negative for full-thickness/retracted rotator cuff tendon tear. 2. Rotator cuff tendinosis is present, including at the superior rotator cuff conjoined segment. 3. In absence of prior surgery, findings are suspect for proximal long bicipital tendon rupture/retraction. 4. Moderate glenohumeral and acromioclavicular degenerative changes. 5. Mild glenohumeral synovitis and subacromial/subdeltoid bursitis. - Narrative 12/03/2019 9:18 PM EST MRI SHOULDER RIGHT WO CONTRAST, 12/02/2019. CLINICAL HISTORY: M25.511-Pain in right [id number] COMPARISON: None. TECHNIQUE: Multiplanar, multisequence MR images of the right shoulder were obtained without the use of contrast. FINDINGS: ROTATOR CUFF & LONG BICIPITAL TENDON: Supraspinatus and infraspinatus tendon tissue overlies the humeral head. Tendinosis is more pronounced at the conjoined segment with mild articular sided fraying of the anterior infraspinatus tendon. There is no full-thickness/retracted tear of the supraspinatus or infraspinatus tendons. The teres minor muscle and tendon are intact. There is no high-grade or retracted tear of the subscapularis tendon. The long bicipital tendon is not seen proximally compatible with rupture/retraction in absence of prior surgery. OSSEOUS STRUCTURES & ARTICULATIONS: The glenohumeral joint is congruent and there is no fracture. Degenerative enthesopathic changes are noted at the greater tuberosity. Generalized glenohumeral chondral thinning is present. There is attenuation of the superior labrum about the disrupted biceps labral anchor region. Mild glenohumeral synovitis is present. The acromioclavicular joint is congruent. There is no os acromiale. Moderate acromioclavicular degenerative changes are noted with generalized hypertrophic change. The acromion is downsloping laterally. There is mild subacromial/subdeltoid bursitis. Procedure Note Maciel Perry MD - 12/03/2019 MRI SHOULDER RIGHT WO CONTRAST, 12/02/2019. CLINICAL HISTORY: M25.511-Pain in right [id number] COMPARISON: None. TECHNIQUE: Multiplanar, multisequence MR images of the right shoulderwere obtained without the use of contrast. FINDINGS: ROTATOR CUFF & LONG BICIPITAL TENDON: Supraspinatus and infraspinatustendon tissue overlies the humeral head. Tendinosis is more pronounced at theconjoined segment with mild articular sided fraying of the anterior infraspinatustendon. There is no full-thickness/retracted tear of the supraspinatus orinfraspinatus tendons. The teres minor muscle and tendon are intact. There is no high-grade or retracted tear of the subscapularis tendon. Thelong bicipital tendon is not seen proximally compatible with rupture/retractionin absence of prior surgery. OSSEOUS STRUCTURES & ARTICULATIONS: The glenohumeral joint is congruentand there is no fracture. Degenerative enthesopathic changes are noted atthe greater tuberosity. Generalized glenohumeral chondral thinning is present.There is attenuation of the superior labrum about the disrupted biceps labralanchor region. Mild glenohumeral synovitis is present. The acromioclavicular joint is congruent. There is no os acromiale.Moderate acromioclavicular degenerative changes are noted with generalizedhypertrophic change. The acromion is downsloping laterally. There is mild subacromial/subdeltoid bursitis. IMPRESSION: 1. Negative for full-thickness/retracted rotator cuff tendon tear. 2. Rotator cuff tendinosis is present, including at the superior rotatorcuff conjoined segment. 3. In absence of prior surgery, findings are suspect for proximal longbicipital tendon rupture/retraction. 4. Moderate glenohumeral and acromioclavicular degenerative changes. 5. Mild glenohumeral synovitis and subacromial/subdeltoid bursitis. - us Ming Santamaria MD IMG MRI ORDERABLES Final Res ult * MRI SHOULDER LEFT WO CONTRAST (12/02/2019 12:24 PM EST) Anatomical Region Laterality Modality Shoulder Magnetic Resonan ce 12/02/2019 12:2 4 PM EST Impressions 12/02/2019 4:51 PM EST 1. In the context of moderate supraspinatus tendinosis, there is articular sided irregularity/fraying without well-defined retracted supraspinatus insertional tear. - Pinhole nonretracted, full-thickness fenestration-type irregularity is noted in the critical zone of the posterior supraspinatus tendon. 2. Infraspinatus tendinosis without discrete or retracted tear character. 3. Proximal biceps tendinosis. 4. Moderate glenohumeral degenerative changes are noted, with chondral loss more pronounced at the humeral head apex. There is a 0.8 cm intra-articular body in the axillary recess space. 5. Rotator cuff outlet/impingement findings include advanced acromioclavicular degenerative changes and acromial downsloping. There is mild subacromial/subdeltoid bursitis. - Narrative 12/02/2019 4:51 PM EST MRI SHOULDER LEFT WO CONTRAST, 12/02/2019. CLINICAL HISTORY: M25.512-Pain in left [id number] COMPARISON: None. TECHNIQUE: Multiplanar, multisequence MR images of the left shoulder were obtained without the use of contrast. FINDINGS: ROTATOR CUFF & LONG BICIPITAL TENDON: Rotator cuff muscle volume is maintained. There is moderate supraspinatus greater than infraspinatus tendinosis. There is insertional articular sided fraying/partial-thickness tearing of the tendon from relatively anterior to posterior without retracted tear of the insertional tissue. There is area of pinhole full-thickness irregularity in the critical zone of the posterior tendon margin as seen on coronal image 11. There is no well-defined or retracted tear character. Infraspinatus tendon appears friable without discrete or retracted tear. The teres minor muscle and tendon are intact. Subscapularis tendinosis is present without discrete or retracted tear. Moderate proximal biceps tendinosis is noted in the interval. There is no rupture/retraction. OSSEOUS STRUCTURES & ARTICULATIONS: The glenohumeral joint is congruent and there is no fracture. Degenerative enthesopathic changes are noted in the anterior facet of the tuberosity with pronounced insertional cystic change of the supraspinatus. Generalized glenohumeral chondral thinning is present, with high-grade chondral loss at the humeral head apex. Superior labral fraying/nondisplaced tearing is present. A joint body is noted in the axillary recess space measuring approximately 0.8 cm. Mild synovitis is noted. The acromioclavicular joint is congruent. There is no os acromiale. Advanced the acromioclavicular degenerative changes are present, with undersurface spurring the range of 0.4 cm. The acromion is downsloping laterally. There is mild subacromial/subdeltoid bursitis. Procedure Note Maciel Perry MD - 12/02/2019 MRI SHOULDER LEFT WO CONTRAST, 12/02/2019. CLINICAL HISTORY: M25.512-Pain in left [id number]-CM COMPARISON: None. TECHNIQUE: Multiplanar, multisequence MR images of the left shoulderwere obtained without the use of contrast. FINDINGS: ROTATOR CUFF & LONG BICIPITAL TENDON: Rotator cuff muscle volume is maintained. There is moderate supraspinatus greater than infraspinatus tendinosis. There is insertional articular sidedfraying/partial-thickness tearing of the tendon from relatively anterior to posterior withoutretracted tear of the insertional tissue. There is area of pinhole full-thickness irregularity in the critical zone of the posterior tendon margin as seenon coronal image 11. There is no well-defined or retracted tear character. Infraspinatus tendon appears friable without discrete or retracted tear.The teres minor muscle and tendon are intact. Subscapularis tendinosis is present without discrete or retracted tear.Moderate proximal biceps tendinosis is noted in the interval. There is no rupture/retraction. OSSEOUS STRUCTURES & ARTICULATIONS: The glenohumeral joint is congruentand there is no fracture. Degenerative enthesopathic changes are noted inthe anterior facet of the tuberosity with pronounced insertional cystic changeof the supraspinatus. Generalized glenohumeral chondral thinning is present,with high-grade chondral loss at the humeral head apex. Superior labral fraying/nondisplaced tearing is present. A joint body is noted in theaxillary recess space measuring approximately 0.8 cm. Mild synovitis is noted. The acromioclavicular joint is congruent. There is no os acromiale.Advanced the acromioclavicular degenerative changes are present, with undersurfacespurring the range of 0.4 cm. The acromion is downsloping laterally. There ismild subacromial/subdeltoid bursitis. IMPRESSION: 1. In the context of moderate supraspinatus tendinosis, there is articularsided irregularity/fraying without well-defined retracted supraspinatusinsertional tear. - Pinhole nonretracted, full-thickness fenestration-type irregularity isnoted in the critical zone of the posterior supraspinatus tendon. 2. Infraspinatus tendinosis without discrete or retracted tearcharacter. 3. Proximal biceps tendinosis. 4. Moderate glenohumeral degenerative changes are noted, with chondralloss more pronounced at the humeral head apex. There is a 0.8 cm intra-articularbody in the axillary recess space. 5. Rotator cuff outlet/impingement findings include advancedacromioclavicular degenerative changes and acromial downsloping. There is mild subacromial/subdeltoid bursitis. - us Ming Santamaria MD IMG MRI ORDERABLES Final Res ult * RETICULOCYTE PANEL DIAGNOSTIC (09/28/2019 3:36 PM EST) Retic Cnt Auto 1.0 0.9 - 2.5 % 09/28/2019 4:08 PM EST [facility] Retic # 40.8 40.0 - 110.0 x10(3)/mcL 09/28/2019 4:08 PM EST [facility] Imm. Retic Fraction % 8.5 3.1 - 17.6 % 09/28/2019 4:08 PM EST [facility] Retic Hgb 36.8 23.0 - 38.0 pg 09/28/2019 4:08 PM EST [facility] Blood VENOUS BLOOD / Unknown Venipuncture / Unknown 09/28/2019 3:36 PM EST 09/28/2019 3:36 PM EST Narrative [facility] - 09/28/2019 4:08 PM EST Reticulocyte hemoglobin content (RET-He), a direct measurement of hemoglobinization of the developing reticulocyte, should be interpreted in conjunction with other indices. In various adult studies, values lower than 27-28pg (1,2) have demonstrated specificities for iron deficiency exceeding 90%. In a study of cancer patients, values exceeding 32pg (3) ruled out iron deficiency with a negative predictive value of 98.5%. RET-He has also demonstrated utility for monitoring response to iron replacement therapy (4). The immature reticulocyte fraction (IRF) assesses reticulocyte maturation by measuring the intensity of mRNA staining with the youngest reticulocytes having the highest content. (1)Randal, Y., et al. 2017. Int J Hematol 106:116-125. (2)Bernabe J., et al. 2017. Nutrients 9:450. (3)Cherelle Montgomery, et al. 2014. Am J Clin Pathol 142:506-512. (4)Jj Lan., et al. 2010. Blood 116:3899-4473. us Dennis Mak MD HEMATOLOGY ORDERABLES Final Result [facility] [address] [facility] , [address] [place], [place] [id number] * (ABNORMAL) IRON/UIBC (09/28/2019 3:36 PM EST) Iron 40 30 - 160 mcg/dL 09/28/2019 4:40 PM EST [facility] UIBC 265 112 - 347 mcg/dL 09/28/2019 4:40 PM EST [facility] Transferrin Sat 13(L) 20 - 50 % 9 4:40 PM EST [facility] Blood Venipuncture / Unknown 09/28/2019 3:36 PM EST 09/28/2019 3:36 PM EST Dennis Mak MD CHEMISTRY ORDERABLES Final Result [facility] [address] [facility] , [place] [address] * (ABNORMAL) CBC (09/28/2019 3:36 PM EST) WBC 9.6 3.7 - 10.3 x10(3)/mcL 09/28/2019 4:08 PM EST [facility] RBC 4.00 3.90 - 5.20 x10(6)/mcL 09/28/2019 4:08 PM EST [facility] Hgb 11.5 11.2 - 15.7 g/dL 09/28/2019 4:08 PM EST [facility] Hct 36.3 34.0 - 45.0 % 09/28/2019 4:08 PM EST [facility] MCV 90.8 80.0 - 100.0 fL 09/28/2019 4:08 PM EST [facility] MCH 28.8 26.0 - 34.0 pg 09/28/2019 4:08 PM EST [facility] MCHC 31.7 30.7 - 35.5 g/dL 09/28/2019 4:08 PM EST [facility] RDW 15.7(H) <=14.9 % 09/28/2019 4:08 PM EST [facility] Platelet 372(H) 155 - 369 x10(3)/mcL 09/28/2019 4:08 PM EST [facility] MPV 9.9 8.8 - 12.5 fL 09/28/2019 4:08 PM EST [facility] Blood VENOUS BLOOD / Unknown Venipuncture / Unknown 09/28/2019 3:36 PM EST 09/28/2019 3:36 PM EST us Dennis Mak MD HEMATOLOGY ORDERABLES Final Result Performing Organization Address [facility] de Phone Number [facility] [address] , [place] [address] * FERRITIN (09/28/2019 3:36 PM EST) Pathologist [facility] Ferritin 25 13 - 150 ng/mL 09/28/2019 4:39 PM EST [facility] Blood Venipuncture / Unknown 09/28/2019 3:36 PM EST 09/28/2019 3:36 PM EST Narrative [facility] - 09/28/2019 4:39 PM EST Ingestion of del doses of biotin (>5 mg/day) taken within 8 hours of drawing blood sample can interfere with this immunoassay test. us Dennis Mak MD CHEMISTRY ORDERABLES Final Result Performing Organization Address [facility] de Phone Number [facility] [address] , [place] [address] * MM US BREAST LIMITED RIGHT (09/11/2019 1:02 PM EDT) Anatomical Region Laterality Modality Breast Right Ultrasound 09/11/2019 2:42 PM EDT Impressions 09/11/2019 2:42 PM EDT Benign finding ([id number]) ~ RECOMMENDATION: Follow-up diagnostic mammogram of both breasts in 1 year. ~ DISCLAIMER * Any patient with a palpable abnormality, unexplained by breast imaging, should be managed on clinical basis by the attending physician. * Breast imaging has a false negative rate of 15%. * The patient was notified by mail of the results of this examination. *The patient's information was entered into a reminder system with a target due date for the next mammogram. Narrative 09/11/2019 2:42 PM EDT Procedure:MM US BREAST LIMITED RIGHT ~ Reason for exam: characterization of a palpable mass. N63.10-Unspecified lump in the right breast, unspecified [id number] ~ MM US BREAST LIMITED RIGHT Standard views. ~ Prior study comparison: Compared with prior studies the most recent being mammogram from September 04, 2019 and numerous older mammograms dating back to 2009 High-resolution scanning performed in the RIGHT 10:00 position 7 cm from the nipple where there is questionable palpable abnormality. Of note on the mammogram there is a asymmetric 1 cm density at that site that has been stable over numerous prior mammograms. ~ At this site there is a poorly defined isoechoic to slightly hyperechoic area probably an asymmetric island of glandular tissue based on the appearance of the mammogram and sonogram. No shadowing or distortion. ~ Procedure Note Wong Benson MD - 09/11/2019 Procedure:MM US BREAST LIMITED RIGHT ~ Reason for exam: characterization of a palpable mass. N63.10-Unspecified lump in the right breast, [id number] ~ MM US BREAST LIMITED RIGHT Standard views. ~ Prior study comparison: Compared with prior studies the most recentbeing mammogram from September 04, 2019 and numerous older mammograms datingback to 2009 High-resolution scanning performed in the RIGHT 10:00 position 7 cm from the nipple where there is questionable palpable abnormality. Of note onthe mammogram there is a asymmetric 1 cm density at that site that has been stable over numerous prior mammograms. ~ At this site there is a poorly defined isoechoic to slightly hyperechoic area probably an asymmetric island of glandular tissue based on the appearance of the mammogram and sonogram. No shadowing or distortion. ~ IMPRESSION: Benign finding ([id number]) ~ RECOMMENDATION: Follow-up diagnostic mammogram of both breasts in 1 year. ~ DISCLAIMER * Any patient with a palpable abnormality, unexplained by breast imaging, should be managed on clinical basis by the attending physician. * Breast imaging has a false negative rate of 15%. * The patient was notified by mail of the results of this examination. *The patient's information was entered into a reminder system with atarget due date for the next mammogram. Cristi Sosa MD IMG MAMMOGRAPHY ORDERABLES F inal Result * STOCK DRIVER CYTOLOGY REQUEST (PAP ONLY) (09/03/2019 11:09 AM EDT) CASE REPORT Gynecologic Cytology Report Case: [id number] Authorizing Provider: Cristi Sosa MD Collected: 09/03/2019 1109 Ordering Location: [facility] Received: 09/03/2019 1109 First Screen: Kenny Turner CT Specimen: LIQUID-BASED PAP - CERVICAL/ENDOCERV ICAL, Cervix, Endocervical 09/04/2019 10:37 AM EDT [facility] PAP FINAL DIAGNOSIS Negative for intraepithelial lesion or malignancy 09/04/2019 10:37 AM EDT [facility] at 1037 EDT MICROSCOPIC DESCRIPTION Microscopic examination is performed and the findings corroborate the diagnosis. 09/04/2019 10:37 AM EDT [facility] PAP SMEAR ADEQUACY Satisfactory for evaluation 09/04/2019 10:37 AM EDT [facility] ENDOCERVICAL T-ZONE Transformation zone present 09/04/2019 10:37 AM EDT [facility] EMBEDDED IMAGES 9 10:37 AM EDT [facility] PAP DISCLAIMER The Pap Smear is a screening test that aids in the detection of cervical cancer and cancer precursors. Both false positive and false negative results can occur. The test should be used at regular intervals, and positive results should be confirmed before definitive therapy. Processed using the ThinPrep [employer] Automated cytology screening device ([employer]). 09/04/2019 10:37 AM EDT [facility] Thin Prep ENDOCERVICAL STRUCTURE / Unknown 09/03/2019 11:09 AM EDT 09/03/2019 11:09 AM EDT Cristi Sosa MD CYTOLOGY ORDERABLES Final Re sult [facility] [address] [place] [address] * XR FOOT LEFT AP LATERAL AND OBLIQUE STANDING (08/28/2019 1:43 PM EDT) Only the most recent of2 resultswithin the time period is included. 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 with subluxation of the first MP joint, dislocation of the second third MP joints, hammertoe deformities 2-3-4-5, osteopenia, diffuse degenerative changes, no acute changes, no fracture dislocation us Jose Guardado DPM IMG DIAGNOSTIC IMAGING MASSIEL FANG Final Result * (ABNORMAL) HEMOGLOBIN AND HEMATOCRIT (05/20/2019 7:29 AM EDT) Hgb 9.8(L) 11.2 - 15.7 g/dL 05/20/2019 7:57 AM EDT [facility] Hct 30.3(L) 34.0 - 45.0 % 05/20/2019 7:57 AM EDT [facility] Blood Venipuncture / Unknown 05/20/2019 7:29 AM EDT 05/20/2019 7:35 AM EDT us Prakash Viramontes MD HEMATOLOGY ORDERABLES Final Result [facility] [address] [place] [address] , [place] [address] * XR PELVIS (05/19/2019 1:39 PM EDT) Anatomical Region Laterality Modality Pelvis Radiographic Allyssa ging 05/19/2019 1:39 PM EDT Impressions 05/19/2019 2:04 PM EDT Bilateral hip replacements. No evidence of fracture or dislocation. Narrative 05/19/2019 2:04 PM EDT XR PELVIS Clinical: -post op hip surgery Procedure Note Everardo Everett MD - 05/19/2019 XR PELVIS Clinical: -post op hip surgery IMPRESSION: Bilateral hip replacements. No evidence of fracture or dislocation. Prakash Viramontes MD [facility] ORDER XAVIER Final Result * FL < 1 HOUR (05/19/2019 1:02 PM EDT) Narrative PACS - 05/19/2019 2:30 PM EDT Fluoroscopy was performed. The radiologist was not in attendance. No permanent images were obtained. This dictation is being made for record keeping purposes. Prakash Viramontes MD [facility] ORDERABLES F inal Result PACS * XR HIP INTRAOPERATIVE RIGHT 2 VIEW (05/19/2019 1:02 PM EDT) Anatomical Region Laterality Modality Hip Radiographic Allyssa ging 05/19/2019 1:02 PM EDT Impressions 05/19/2019 2:50 PM EDT Satisfactory intraoperative imaging. - - Narrative 05/19/2019 2:50 PM EDT XR HIP INTRAOPERATIVE RIGHT 2 VIEW, 05/19/2019 1:02 PM CLINICAL HISTORY: -or COMPARISON: None. PROCEDURE COMMENTS: 4 views of the right hip obtained intraoperatively with portable equipment. FINDINGS: Intraoperative imaging shows satisfactory hardware positioning. No unexpected finding. Procedure Note Donal Lane III, MD - 05/19/2019 XR HIP INTRAOPERATIVE RIGHT 2 VIEW, 05/19/2019 1:02 PM CLINICAL HISTORY: -or COMPARISON: None. PROCEDURE COMMENTS: 4 views of the right hip obtained intraoperativelywith portable equipment. FINDINGS: Intraoperative imaging shows satisfactory hardware positioning. Nounexpected finding. IMPRESSION: Satisfactory intraoperative imaging. - - [facility] ORDER XAVIER Final Result * INTRAOP AIRWAY PLACEMENT (05/19/2019 12:09 PM EDT) Narrative [facility] - 05/19/2019 12:09 PM EDT Eliseo Aguayo CRNA 05/19/2019 12:10 PM Intraop Airway Placement: Induction type: IV Mask size: Standard adult Pre-Oxygenation: Standard Mask ventilation: Not attempted Technique: Video laryngoscope Laryngoscope blade: Perez Blade size: 3 Grade view: I Airway type: ETT- cuffed Topical Anesthetic/Lubricant: LTA 4% Lidocaine Airway location: Oral Device size: 7.5mm Secured at: 19 cm Secured by: Tape Measured from: Lips Placement verified: Auscultation, End tidal CO2 and Symmetric chest wall motion Condition: Atraumatic Insertion attempts: 1 Title: MORGAN Procedure Note Eliseo Aguayo CRNA - 05/19/2019 12:09 PM EDT Intraop Airway Placement: Induction type: IV Mask size: Standard adult Pre-Oxygenation: Standard Mask ventilation: Not attempted Technique: Video laryngoscope Laryngoscope blade: Perez Blade size: 3 Grade view: I Airway type: ETT- cuffed Topical Anesthetic/Lubricant: LTA 4% Lidocaine Airway location: Oral Device size: 7.5mm Secured at: 19 cm Secured by: Tape Measured from: Lips Placement verified: Auscultation, End tidal CO2 and Symmetric chestwall motion Condition: Atraumatic Insertion attempts: 1 Title: INSPECTOR [employer]AB[employer] us Eliseo Aguayo CRNA IA ANESTHESIA Final Re sult [facility] [address] [place] [address] * Peripheral Block by Anesthesia (05/19/2019 11:30 AM EDT) Narrative [facility] - 05/19/2019 11:30 AM EDT Esther Zarate MD 05/19/2019 11:31 AM Peripheral Block by Anesthesia Procedure Date/Time: 05/19/2019 11:30 AM Patient location during procedure: OR holding area Reason for block: at surgeon's request and post-op pain management Staff and pre procedure checks Performed: anesthesiologist Preanesthetic Checklist: Allergies confirmed, Block plan confirmed, Necessary block equipment present, Supplemental O2 applied, if needed, Anticoagulant confirmed, Block site marked, Patient identified- 2 criteria, Surgical procedure consent verified, Aseptic technique used, Drug/solution labeled, Resuscitaion equipment available, PADMINI recommended monitors applied, IV access functioning and Sedation given, if needed Immediate perianesthetic assessment completed: Yes Patient position: Prep: Chloraprep Monitoring: BP, EKG, O2 Sat and Mental status assessed Peripheral Block Block type: Fascia Iliaca Block Laterality: Right Injection technique: single-shot Pain pump: no pain pump placed Medication: 30ml, Ropivacaine 0.2% Needle Needle type: Stimuplex Needle gauge: 22 G Needle length: 4 in (100mm) Nerve localization: ultrasound guidanceUltrasound needle approach: in-plane Assessment Block success: a full evaluation pending Events: Uneventful Heart rate change: no Blood aspirated: no Paresthesia pain: absent Resistance on injection: normal Intermittent incremental injection LA at 5ml LA surrounding nerve by ultrasonographc visualization Additional Notes [facility] hospital Procedure Note Esther Zarate MD - 05/19/2019 11:30 AM EDT Peripheral Block by Anesthesia Procedure Date/Time: 05/19/2019 11:30 AM Patient location during procedure: OR holding area Reason for block: at surgeon's request and post-op pain management Staff and pre procedure checks Performed: anesthesiologist Preanesthetic Checklist: Allergies confirmed, Block plan confirmed,Necessary block equipment present, Supplemental O2 applied, if needed,Anticoagulant confirmed, Block site marked, Patient identified- 2criteria, Surgical procedure consent verified, Aseptic technique used,Drug/solution labeled, Resuscitaion equipment available, PADMINI recommendedmonitors applied, IV access functioning and Sedation given, if needed Immediate perianesthetic assessment completed: Yes Patient position: Prep: Chloraprep Monitoring: BP, EKG, O2 Sat and Mental status assessed Peripheral Block Block type: Fascia Iliaca Block Laterality: Right Injection technique: single-shot Pain pump: no pain pump placed Medication: 30ml, Ropivacaine 0.2% Needle Needle type: Stimuplex Needle gauge: 22 G Needle length: 4 in (100mm) Nerve localization: ultrasound guidanceUltrasound needle approach:in-plane Assessment Block success: a full evaluation pending Events: Uneventful Heart rate change: no Blood aspirated: no Paresthesia pain: absent Resistance on injection: normal Intermittent incremental injection LA at 5ml LA surrounding nerve by ultrasonographc visualization Additional Notes city hospital us Esther Zarate MD ANESTHESIA ORDERABLES Fin al Result [place] [phone] * (ABNORMAL) VITAMIN B12/ FOLIC ACID (05/07/2019 12:11 PM EDT) Vitamin B12 312 211 - 946 pg/mL 05/07/2019 1:48 PM EDT [facility] Folate >16.00(H) 4.50 - 16.00 ng/mL 05/07/2019 1:48 PM EDT [facility] Blood Venipuncture / Unknown 05/07/2019 12:11 PM EDT 05/07/2019 12:11 PM EDT Narrative [facility] - 05/07/2019 1:48 PM EDT Ingestion of del doses of biotin (>5 mg/day) taken within 8 hours of drawing blood sample can interfere with this immunoassay test. us Vikas Burnham MD CHEMISTRY ORDERABLES Final Resul t Performing Organization Address [facility] Co de Phone Number [facility] [address] , [place] [address] * TSH REFLEX (05/07/2019 12:11 PM EDT) Pathologist [facility] TSH Reflex 0.963 0.270 - 4.200 mcIU/mL 05/07/2019 1:32 PM EDT [facility] Blood Venipuncture / Unknown 05/07/2019 12:11 PM EDT 05/07/2019 12:11 PM EDT Narrative [facility] - 05/07/2019 1:32 PM EDT Ingestion of del doses of biotin (>5 mg/day) taken within 8 hours of drawing blood sample can interfere with this immunoassay test. us Vikas Burnham MD CHEMISTRY ORDERABLES Final Resul t Performing Organization Address [facility]/ZIP Co de Phone Number [facility] [address] , [place] [address] * PT / INR (05/07/2019 12:05 PM EDT) Pathologist [facility] PT 10.7 9.7 - 12.5 second(s) 05/07/2019 1:08 PM EDT [facility] INR 0.95 0.86 - 1.10 no units 05/07/2019 1:08 PM EDT [facility] Comment: Level of Therapy Indications Target INR Range Standard Dose Treatment and prophylaxis of venous 2.0 - 3.0 thrombosis, pulmonary embolism High Dose High risk patients with mechanical 2.5 - 3.5 heart valves Blood VENOUS BLOOD / Unknown Venipuncture / Unknown 05/07/2019 12:05 PM EDT 05/07/2019 12:05 PM EDT us Prakash Viramontes MD HEMATOLOGY ORDERABLES Final Result [facility] [address] [facility] [facility] [facility] , [address] [place] [address] * MRI PELVIS WO CONTRAST (01/28/2019 1:36 PM EDT) Anatomical Region Laterality Modality Pelvis, Illium Magnetic Resonan ce 01/28/2019 1:36 PM EDT Impressions 01/28/2019 10:47 PM EDT 1. Advanced right hip osteoarthrosis, with articular surface remodeling/collapse, subchondral reactive bone marrow edema and moderate reactive capsular distention as detailed above. 2. Status post left hip arthroplasty placement. Narrative 01/28/2019 10:47 PM EDT MRI PELVIS WO CONTRAST, 01/28/2019. CLINICAL HISTORY: M25.551-Pain in right dig-MYP-77-CM M25.552-Pain in left xjc-ITY-01-CM COMPARISON: MRI left hip 07/03/2012. TECHNIQUE: Multiplanar, multisequence MR images of the pelvis/right hip were obtained without the use of contrast. FINDINGS: OSSEOUS STRUCTURES & ARTICULATIONS: The patient is status post left total hip arthroplasty placement. Considering technical limitations, there is no evidence of hardware complication. Advanced right hip osteoarthrosis is present. There is global high-grade chondrolabral irregularity, with bony remodeling of the articular surfaces of the acetabulum and femoral head. Subchondral marrow edema is noted on both sides the articulation, and cystic changes are present in the femoral head. The femoral head articular surface is flattened/collapsed and there is elongation/spurring of the acetabulum. A moderate right hip joint effusion is present and debris is present within the joint space. The obturator rings are intact and the pubic symphysis is congruent. Mild osteoarthritic changes are noted in the symphysis. There is no sacral insufficiency injury or evidence of SI joint active inflammation. Multilevel lumbar spine degenerative changes are present, incompletely assessed. Dedicated MRI lumbar spine imaging was performed 10/30/2018. MUSCLES, TENDONS & OTHER SOFT TISSUES: The common hamstring origins are intact. There is no adductor/upright or muscle injury. The rectus femoris origins and iliopsoas insertions are intact. Right gluteus minimus tendinosis and fraying is present without rupture. Air is no right trochanteric bursal distention. A fat intensity mass in the left anterior abdominal wall is unchanged from prior. Procedure Note Maciel Perry MD - 01/28/2019 MRI PELVIS WO CONTRAST, 01/28/2019. CLINICAL HISTORY: M25.551-Pain in right iry-RFU-30-CM M25.552-Pain in left ils-UHJ-02-CM COMPARISON: MRI left hip 07/03/2012. TECHNIQUE: Multiplanar, multisequence MR images of the pelvis/right hipwere obtained without the use of contrast. FINDINGS: OSSEOUS STRUCTURES & ARTICULATIONS: The patient is status post left totalhip arthroplasty placement. Considering technical limitations, there is noevidence of hardware complication. Advanced right hip osteoarthrosis is present.There is global high-grade chondrolabral irregularity, with bony remodeling ofthe articular surfaces of the acetabulum and femoral head. Subchondral marrowedema is noted on both sides the articulation, and cystic changes are present inthe femoral head. The femoral head articular surface is flattened/collapsedand there is elongation/spurring of the acetabulum. A moderate right hipjoint effusion is present and debris is present within the joint space. The obturator rings are intact and the pubic symphysis is congruent.Mild osteoarthritic changes are noted in the symphysis. There is no sacral insufficiency injury or evidence of SI joint active inflammation.Multilevel lumbar spine degenerative changes are present, incompletely assessed.Dedicated MRI lumbar spine imaging was performed 10/30/2018. MUSCLES, TENDONS & OTHER SOFT TISSUES: The common hamstring origins are intact. There is no adductor/upright or muscle injury. The rectusfemoris origins and iliopsoas insertions are intact. Right gluteus minimustendinosis and fraying is present without rupture. Air is no right trochantericbursal distention. A fat intensity mass in the left anterior abdominal wall is unchangedfrom prior. IMPRESSION: 1. Advanced right hip osteoarthrosis, with articular surface remodeling/collapse, subchondral reactive bone marrow edema and moderate reactive capsular distention as detailed above. 2. Status post left hip arthroplasty placement. us Ming Santamaria MD IMG MRI ORDERABLES Final Res ult * MRI LUMBAR SPINE WO CONTRAST (10/30/2018 3:27 PM EST) Anatomical Region Laterality Modality Spine, L-spine Magnetic Resonan ce 10/30/2018 3:27 PM EST Impressions 10/30/2018 3:50 PM EST Moderate diffuse degenerative change without high-grade canal or foraminal stenosis. Degenerative grade 1 anterolisthesis of L4 on L5. Levoscoliosis. No fracture. Narrative 10/30/2018 3:50 PM EST MRI LUMBAR SPINE WITHOUT CONTRAST, 10/30/2018 3:27 PM CLINICAL HISTORY: S16.1XXA-Strain of muscle, fascia and tendon at neck level, initial xfcyvksli-TEM-80-CM S29.019A-Strain of muscle and tendon of unspecified wall of thorax, initial ztnzxpgxo-TWB-46-CM S39.012A-Strain of muscle, fascia and tendon of lower back, initial bqknkxwol-MCZ-46-CM COMPARISON: None PROCEDURE COMMENTS: Multiplanar multiecho MR imaging of the lumbar spine without contrast. FINDINGS: No acute spine fracture. Normal conus position and signal. No concerning marrow replacement. Moderate levoscoliosis noted. There is mild anterolisthesis of L4 on L5 that measures approximately 4 mm and related to facet joint osteoarthritis. No pars defect seen. Level by level analysis: L1/L2: Degenerative with osteophyte covered disc protrusion. Mild mass effect noted on the thecal sac. No canal or foraminal stenosis detected. L2/L3: Degenerative. Osteophyte covered disc protrusion noted. There is no significant canal or foraminal stenosis however. L3/L4: Similarly this disc is degenerative with loss of disc space height and T2 signal. Shallow protrusion noted without mass effect on the thecal sac. There is right foraminal extension with mild right foraminal narrowing. L4/L5: Degenerative grade 1 subluxation noted at this level as described above. Facet joint osteoarthritis present. The combination of findings is also mild foraminal narrowing. No central canal stenosis detected. Facet joint osteoarthritis is marked. L5/S1: Marked facet joint osteoarthritis. Shallow protrusion noted without neural element compression. Sacral Tarlov cysts noted. Procedure Note Esther Ellsworth MD - 10/30/2018 MRI LUMBAR SPINE WITHOUT CONTRAST, 10/30/2018 3:27 PM CLINICAL HISTORY: S16.1XXA-Strain of muscle, fascia and tendon at necklevel, initial emyakffec-DPI-99-CM S29.019A-Strain of muscle and tendon of unspecified wall of thorax,initial zcjkiijaf-JHC-47-CM S39.012A-Strain of muscle, fascia and tendon of lower back, initial tugdkkqxa-QOC-11-CM COMPARISON: None PROCEDURE COMMENTS: Multiplanar multiecho MR imaging of the lumbar spinewithout contrast. FINDINGS: No acute spine fracture. Normal conus position and signal. No concerningmarrow replacement. Moderate levoscoliosis noted. There is mild anterolisthesisof L4 on L5 that measures approximately 4 mm and related to facet joint osteoarthritis. No pars defect seen. Level by level analysis: L1/L2: Degenerative with osteophyte covered disc protrusion. Mild masseffect noted on the thecal sac. No canal or foraminal stenosis detected. L2/L3: Degenerative. Osteophyte covered disc protrusion noted. There isno significant canal or foraminal stenosis however. L3/L4: Similarly this disc is degenerative with loss of disc space heightand T2 signal. Shallow protrusion noted without mass effect on the thecal sac.There is right foraminal extension with mild right foraminal narrowing. L4/L5: Degenerative grade 1 subluxation noted at this level as describedabove. Facet joint osteoarthritis present. The combination of findings is alsomild foraminal narrowing. No central canal stenosis detected. Facet joint osteoarthritis is marked. L5/S1: Marked facet joint osteoarthritis. Shallow protrusion notedwithout neural element compression. Sacral Tarlov cysts noted. IMPRESSION: Moderate diffuse degenerative change without high-grade canal or foraminal stenosis. Degenerative grade 1 anterolisthesis of L4 on L5. Levoscoliosis. No fracture. us Ming Santamaria MD IMG MRI ORDERABLES Final Res ult * MRI THORACIC SPINE WO CONTRAST (10/30/2018 3:13 PM EST) Anatomical Region Laterality Modality T-spine Magnetic Resonan ce 10/30/2018 3:13 PM EST Impressions 10/30/2018 3:43 PM EST Scoliosis. Degenerative change. No significant canal or foraminal stenosis. No fracture or destructive lesion seen. Narrative 10/30/2018 3:43 PM EST MRI THORACIC SPINE WITHOUT CONTRAST, 10/30/2018 3:13 PM CLINICAL HISTORY: S16.1XXA-Strain of muscle, fascia and tendon at neck level, initial zskbcvdjv-URO-27-CM S29.019A-Strain of muscle and tendon of unspecified wall of thorax, initial urldnotxa-JBL-61-CM S39.012A-Strain of muscle, fascia and tendon of lower back, initial mpzfodchq-XZE-16-CM COMPARISON: None. PROCEDURE COMMENTS: Multiplanar multiecho MR imaging of the thoracic spine. Sagittal imaging of the entire thoracic spine with selected axial imaging. FINDINGS: Moderate dextroscoliosis noted. No subluxation detected. No fracture identified. No bone marrow edema or suspicious bony lesions detected. Degenerative change of intervertebral discs noted with multilevel disc space narrowing desiccation and disc bulge or shallow protrusions noted most prominent at T9-10 and T10-11. But these disc protrusions are mild. No canal or foraminal stenosis detected however. The cord and canal are normal. Conus is unremarkable. Paraspinous tissues are normal. Aorta is atherosclerotic and ectatic but nonaneurysmal. Procedure Note Esther Ellsworth MD - 10/30/2018 MRI THORACIC SPINE WITHOUT CONTRAST, 10/30/2018 3:13 PM CLINICAL HISTORY: S16.1XXA-Strain of muscle, fascia and tendon at necklevel, initial hsdhoirkd-KCG-24-CM S29.019A-Strain of muscle and tendon of unspecified wall of thorax,initial dlvmjxilq-NUU-28-CM S39.012A-Strain of muscle, fascia and tendon of lower back, initial vzcxcerlc-LCF-30-CM COMPARISON: None. PROCEDURE COMMENTS: Multiplanar multiecho MR imaging of the thoracicspine. Sagittal imaging of the entire thoracic spine with selected axial imaging. FINDINGS: Moderate dextroscoliosis noted. No subluxation detected. No fractureidentified. No bone marrow edema or suspicious bony lesions detected. Degenerativechange of intervertebral discs noted with multilevel disc space narrowingdesiccation and disc bulge or shallow protrusions noted most prominent at T9-10 dpaD29-27. But these disc protrusions are mild. No canal or foraminal stenosisdetected however. The cord and canal are normal. Conus is unremarkable.Paraspinous tissues are normal. Aorta is atherosclerotic and ectatic butnonaneurysmal. IMPRESSION: Scoliosis. Degenerative change. No significant canal or foraminal stenosis. No fracture or destructive lesion seen. us Ming Santamaria MD IMG MRI ORDERABLES Final Res ult * MRI CERVICAL SPINE WO CONTRAST (10/30/2018 2:54 PM EST) Only the most recent of2 resultswithin the time period is included. Anatomical Region Laterality Modality Spine, C-spine Magnetic Resonan ce 10/30/2018 2:54 PM EST Impressions 10/30/2018 3:38 PM EST Multilevel discogenic disease with foraminal narrowing as described. Combination of factors producing mild central stenosis at C4-C5 with bilateral C5 foraminal narrowing, greater on the left than on the right, representing potential mechanisms of nerve root impingement. Please note above level by level discussion. Narrative 10/30/2018 3:38 PM EST MR CERVICAL SPINE WITHOUT CONTRAST, 10/30/2018 2:54 PM CLINICAL HISTORY: Increasing neck pain S16.1XXA-Strain of muscle, fascia and tendon at neck level, initial blkvbknqw-RDW-46-CM S29.019A-Strain of muscle and tendon of unspecified wall of thorax, initial cnpjbfsco-CMC-64-CM S39.012A-Strain of muscle, fascia and tendon of lower back, initial xkomvnxay-DGV-96-CM COMPARISON: MR cervical spine June 14, 2015 PROCEDURE COMMENTS: Multiplanar multiecho MR imaging of the cervical spine per protocol. Slight retrolisthesis of C4 on C5 felt to be degenerative. Similar finding on prior. FINDINGS: No malalignment or concerning marrow signal abnormality. Cord signal unremarkable. Level by level analysis: C2/C3: Unremarkable. C3/C4: Minimal disc bulging with minimal indentation of the subarachnoid space. C4/C5: Discogenic disease with associated this margin spurring, most prominent in the left paracentral and left foraminal locations with mild indentation of the subarachnoid space. Moderate to marked left and moderate right C5 foraminal narrowing representing potential mechanisms of nerve root impingement. Mild central stenosis. Similar findings on prior. C5/C6: Broad-based discogenic disease with associated this margin spurring and mild indentation of the subarachnoid space. Mild to moderate left C6 foraminal narrowing. C6/C7: Mild discogenic disease with associated this margin spurring and mild indentation of the subarachnoid space C7/T1: Unremarkable. Procedure Note Connor Arevalo MD - 10/30/2018 MR CERVICAL SPINE WITHOUT CONTRAST, 10/30/2018 2:54 PM CLINICAL HISTORY: Increasing neck pain S16.1XXA-Strain of muscle, fasciaand tendon at neck level, initial uqgzznvlr-LMT-54-CM S29.019A-Strain of muscle and tendon of unspecified wall of thorax,initial unrqmrpsf-VWF-64-CM S39.012A-Strain of muscle, fascia and tendon of lower back, initial uaxcefeci-NEU-07-CM COMPARISON: MR cervical spine June 14, 2015 PROCEDURE COMMENTS: Multiplanar multiecho MR imaging of the cervical spineper protocol. Slight retrolisthesis of C4 on C5 felt to be degenerative. Similar findingon prior. FINDINGS: No malalignment or concerning marrow signal abnormality. Cord signal unremarkable. Level by level analysis: C2/C3: Unremarkable. C3/C4: Minimal disc bulging with minimal indentation of the subarachnoidspace. C4/C5: Discogenic disease with associated this margin spurring, mostprominent in the left paracentral and left foraminal locations with mild indentationof the subarachnoid space. Moderate to marked left and moderate right H1gkzrxccvx narrowing representing potential mechanisms of nerve root impingement.Mild central stenosis. Similar findings on prior. C5/C6: Broad-based discogenic disease with associated this marginspurring and mild indentation of the subarachnoid space. Mild to moderate left W5zzpulmcfx narrowing. C6/C7: Mild discogenic disease with associated this margin spurring andmild indentation of the subarachnoid space C7/T1: Unremarkable. IMPRESSION: Multilevel discogenic disease with foraminal narrowing as described. Combination of factors producing mild central stenosis at C4-C5 withbilateral C5 foraminal narrowing, greater on the left than on the right,representing potential mechanisms of nerve root impingement. Please note above level by level discussion. Ming Santamaria MD [facility] [place]ABLES Final Res ult * NM BONE SCAN WHOLE BODY (09/18/2018 3:23 PM EST) Anatomical Region Laterality Modality Nuclear Medicine 09/18/2018 3:23 PM EST Impressions 09/18/2018 4:32 PM EST 1. Multifocal axial and appendicular degenerative changes. Narrative 09/18/2018 4:32 PM EST WHOLE BODY BONE SCAN, 09/18/2018 3:23 PM CLINICAL HISTORY: M54.5-Low back lxwu-AUR-72-CM COMPARISON: 2 view chest October 30, 2016 PROCEDURE COMMENTS: 20.2 mCi of Dt45v-USM. Whole body bone scanning per protocol. FINDINGS: There is multifocal abnormal uptake in the spine, including posterior elements in the upper and mid thoracic spine as well as upper lumbar spine. These are likely degenerative. There is additional degenerative change at the left hip, right sternoclavicular joint, both knees, and both feet. Procedure Note Connor Payton MD - 09/18/2018 WHOLE BODY BONE SCAN, 09/18/2018 3:23 PM CLINICAL HISTORY: M54.5-Low back jnlr-RUG-24-CM COMPARISON: 2 view chest October 30, 2016 PROCEDURE COMMENTS: 20.2 mCi of Nm57f-ZXF. Whole body bone scanningper protocol. FINDINGS: There is multifocal abnormal uptake in the spine, including posteriorelements in the upper and mid thoracic spine as well as upper lumbar spine. Theseare likely degenerative. There is additional degenerative change at the left hip, rightsternoclavicular joint, both knees, and both feet. IMPRESSION: 1. Multifocal axial and appendicular degenerative changes. Ming Santamaria MD [facility] ORDERABLES Final Resu lt * CT HEAD WO CONTRAST (09/18/2018 12:49 PM EST) Anatomical Region Laterality Modality Head Computed Tomogra phy 09/18/2018 12:4 9 PM EST Impressions 09/18/2018 1:09 PM EST No acute intracranial abnormality. Narrative 09/18/2018 1:[address] HEAD WO CONTRAST 09/18/2018 12:49 PM CLINICAL HISTORY: S09.90XS-Unspecified injury of head, ztocsja-JDE-84-CM COMPARISON: None. PROCEDURE COMMENTS: Routine noncontrast head CT with multiplanar reconstructions. FINDINGS: No evidence of acute stroke, mass, or hemorrhage. No fracture or extra-axial collection. Ventricular size and sulcal pattern is within normal limits for age. Included portions of the paranasal sinuses, mastoids, and orbits unremarkable. Procedure Note Wong Benson MD - 09/18/2018 CT HEAD WO CONTRAST 09/18/2018 12:49 PM CLINICAL HISTORY: S09.90XS-Unspecified injury of head,cdejwzc-GER-35-CM COMPARISON: None. PROCEDURE COMMENTS: Routine noncontrast head CT with multiplanar reconstructions. FINDINGS: No evidence of acute stroke, mass, or hemorrhage. No fracture orextra-axial collection. Ventricular size and sulcal pattern is within normal limitsfor age. Included portions of the paranasal sinuses, mastoids, and orbitsunremarkable. IMPRESSION: No acute intracranial abnormality. us Ming Santamaria MD IMG CT ORDERABLES Final Resu lt * XR CHEST PA AND LATERAL (10/30/2016 11:37 AM EST) Anatomical Region Laterality Modality Chest Radiographic Allyssa ging 10/30/2016 11:3 7 AM EST Impressions 10/30/2016 12:20 PM EST Tortuous thoracic aorta. Moderate degenerative changes thoracic spine. No radiographic evidence of acute cardiac or pulmonary disease process. Narrative 10/30/2016 12:20 PM EST XR CHEST PA AND LATERAL 10/30/2016 11:37 AM History: 61 years .Female. Y64-Pyled-MOV-32-AG. Compare: February 13, 2006 Procedure Note Javed Fu MD - 10/30/2016 XR CHEST PA AND LATERAL 10/30/2016 11:37 AM History: 61 years .Female. [id number]-Nyoot-HQX-03-BZ. Compare: February 13, 2006 IMPRESSION: Tortuous thoracic aorta. Moderate degenerative changes thoracic spine. No radiographic evidence of acute cardiac or pulmonary diseaseprocess. Judy Shook Julián LORAINE IMG DIAGNOSTIC IMAGING ORDERAB LES Final Result * PULMONARY FUNCTION TEST (10/30/2016 10:41 AM EST) 10/30/2016 10:4 1 AM EST Impressions [facility] - 10/30/2016 10:41 AM EST Good patient effort and understanding. Acceptable results and reproducibility. NORMAL PFTs. Clinical Correlation is Required. This data was interpreted based upon the 2005 ATS/ERS Task Force Position Statement: Interpretative Strategies for Lung Function Tests. This section is an excerpt of the full report. [facility] Final Result [facility] [address] [place] [address] * MM MAMMO DIGITAL SCREENING W CAD BILAT (05/16/2016 3:48 PM EDT) Only the most recent of4 resultswithin the time period is included. Anatomical Region Laterality Modality Breast Bilateral Mammography 05/17/2016 12:3 5 PM EDT Impressions 05/17/2016 1:30 PM EDT : Negative ([id number]) ~ RECOMMENDATION: Routine screening mammogram in 1 year. ~ * The patient with a palpable abnormality, unexplained by breast imaging, should be managed on clinical basis by the attending physician. * Breast imaging has a false negative rate of 15%. * The patient was notified by mail of the results of this examination. *The patient's information was entered into a reminder system with a target due date for the next mammogram. The mammogram was reviewed by a Radiologist and CAD. Narrative 05/17/2016 1:30 PM EDT Procedure:MM MAMMO DIGITAL SCREENING W CAD BILAT ~ Reason for exam: screening (asymptomatic). ~ MM MAMMO DIG SCREEN CAD BILAT Bilateral CC and MLO view(s) were taken. There are scattered fibroglandular densities. No suspicious calcifications. Compared to the most recent studies of 05-12-15. ~ [facility] Evangelista Arelis IMG MAMMOGRAPHY ORDERABLES Jill l Result * XR CERVICAL SPINE AP AND LATERAL (05/16/2016 2:45 PM EDT) Anatomical Region Laterality Modality C-spine Radiographic Allyssa ging 05/16/2016 2:45 PM EDT Impressions 05/16/2016 3:11 PM EDT IMPRESSION: 1. There is no displaced fracture. Straightening of the cervical lordosis attributed to positioning and/or muscle strain/spasm. 2. Advanced multilevel degenerative disc, endplate, and facet joint changes. If there are radicular symptoms, please consider MRI imaging. Narrative 05/16/2016 3:11 PM EDT EXAMINATION: XR CERVICAL SPINE AP AND LATERAL DATE: 05/16/2016 2:45 PM HISTORY: Cervicalgia. COMPARISON: None. TECHNIQUE: 2 views of the cervical spine. FINDINGS: There is no displaced fracture. There is straightening of the cervical lordosis, with mild multilevel degenerative subluxation, including at C3-C4, C4-C5 and C5-C6. Advanced multilevel degenerative disc and endplate changes are noted diffusely inferior to C4. Advanced bilateral facet hypertrophic changes are noted. The thoracic aortic knob appears unfolded. Procedure Note Maciel Perry MD - 05/16/2016 EXAMINATION: XR CERVICAL SPINE AP AND LATERAL DATE: 05/16/2016 2:45 PM HISTORY: Cervicalgia. COMPARISON: None. TECHNIQUE: 2 views of the cervical spine. FINDINGS: There is no displaced fracture. There is straightening of the cervical lordosis, with mild multilevel degenerative subluxation,including at C3-C4, C4-C5 and C5-C6. Advanced multilevel degenerative disc andendplate changes are noted diffusely inferior to C4. Advanced bilateral facet hypertrophic changes are noted. The thoracic aortic knob appears unfolded. IMPRESSION: 1. There is no displaced fracture. Straightening of the cervicallordosis attributed to positioning and/or muscle strain/spasm. 2. Advanced multilevel degenerative disc, endplate, and facet jointchanges. If there are radicular symptoms, please consider MRI imaging. Judy Gallego APRN IMG DIAGNOSTIC IMAGING ORDERAB LES Final Result * SCANNED HOLTER MONITOR (03/17/2015 12:24 PM EDT) Anatomical Region Laterality Modality Other 03/17/2015 12:2 4 PM EDT us Unknown Unknown IMG HOLTER MONITOR ORDERABLES Fi nal Result * HOLTER MONITOR RECORDING AND ANALYSIS (03/05/2015 9:27 AM EDT) Anatomical Region Laterality Modality Holter/Event Mon itoring Impressions 03/19/2015 11:59 AM EDT : Tracings show Sinus Rhythm 78-125 average 94. PVC's 15442. No VT. PAC's 12. No SVT. Narrative 03/19/2015 11:59 AM EDT INDICATIONS: Chest Pain LENGTH OF TAPE 23 HRS 59 MINS MEDICATION: None listed SLOWEST RATE 76 FASTEST RATE 125 AVERAGE RATE 94 TOTAL PVC'S 24368 TOTAL PAC'S 12 VENTRICULAR TACHYCARDIA SUPRAVENTRICULAR TACHYCARDIA Number of episodes 0 Number of episodes 0 Longest run Beats Longest run Beats Fastest rate Fastest rate OTHER ARRHYTHMIAS: See below. ST & T WAVE CHANGES: See below. SYMPTOMS: See below us Benita Infante IMG HOLTER MONITOR ORDERABLES F inal Result * SCANNED RADIOLOGY REPORT (11/29/2014 4:06 PM EST) Anatomical Region Laterality Modality Other 11/29/2014 4:06 PM EST us Unknown Unknown IMG DIAGNOSTIC IMAGING ORDERABLE S Final Result * NM MYOCARDIAL PERFUSION SPECT STRESS AND REST (11/29/2014 12:47 PM EST) Anatomical Region Laterality Modality Nuclear Medicine 11/29/2014 10:3 7 AM EST Impressions 11/29/2014 3:10 PM EST SPECT RESULTS Technical Quality: Technically limited study Raw Data Analysis: Subdiaphragmatic activity Perfusion: Mild Heterogeneity of isotope uptake noted but not in a pattern consistent with ischemia. FUNCTION (calculated via Gated SPECT) Post Stress LV EF:65 % TID: 0.92 EDV: 121 ml (70-100 ml) ESV: 43 ml (30-50 ml) EDVI: 62 ml/m (30-50 ml/m ) ESVI: 22 ml/m (15-30 ml/m ) Technical Quality: LV Size & Function: Normal left ventricular size and function. LV Regional Function: No wall motion abnormalities. IMPRESSIONS There are no significant reversible defects. Narrative Procedure Note Ronn Montana MD - 11/29/2014 IMPRESSION SPECT RESULTS Technical Quality: Technically limited study Raw Data Analysis: Subdiaphragmatic activity Perfusion: Mild Heterogeneity of isotope uptake noted but notin a pattern consistent with ischemia. FUNCTION (calculated via Gated SPECT) Post Stress LV EF:65 %TID: 0.92 EDV: 121 ml (70-100 ml) ESV: 43 ml(30-50 ml) EDVI: 62 ml/m (30-50 ml/m ) ESVI: 22ml/m (15-30 ml/m ) Technical Quality: LV Size & Function: Normal left ventricular size and function. LV Regional Function: No wall motion abnormalities. IMPRESSIONS There are no significant reversible defects. Javed Curtis MD [facility] CARDIAC ORDERABLES Final Result * ST STRESS TEST LEXISCAN (11/29/2014 12:01 PM EST) Anatomical Region Laterality Modality Cardiac Stress T esting 11/29/2014 11:3 0 AM EST Impressions 12/02/2014 12:45 PM EST Exercise ECG Report [facility] [place] Interpretive Statements Stress Test Lexiscan Reason for Exam: Chest tightness and SOB Ordering Diagnosis: Chest tightness and SOB Resting HR: 90 Peak HR: 132 Resting B/P 144/104 PeaK B/P 189/92 1. Lexiscan 0.4 mg was given IV push at 30 seconds into protocol. 2. Lexiscan injection was done with low level exercise. 3. Termination of test was due to protocol completion. 4. Symptoms: Shortness of breath, lightheadedness, and headache after IV Lexiscan. No chest pain. 5. Aminophylline 75 mg IV was given in recovery. 6. Myoview scan report pending. Conclusion: NORMAL EKG RESPONSE Electronically Signed On 2014-12-02 12:45:09 EST by Jani Chaparro MD Narrative Procedure Note Catina Chaparro MD - 12/02/2014 IMPRESSION Exercise ECG Report [facility] Interpretive Statements Stress Test Lexiscan Reason for Exam: Chest tightness and SOB Ordering Diagnosis: Chest tightness and SOB Resting HR: 90 Peak HR: 132 Resting B/P 144/104 PeaK B/P 189/92 1. Lexiscan 0.4 mg was given IV push at 30 seconds into protocol. 2. Lexiscan injection was done with low level exercise. 3. Termination of test was due to protocol completion. 4. Symptoms: Shortness of breath, lightheadedness, and headache after IV Lexiscan. No chest pain. 5. Aminophylline 75 mg IV was given in recovery. 6. Myoview scan report pending. Conclusion: NORMAL EKG RESPONSE Electronically Signed On 2014-12-02 12:45:09 EST by Jani Chaparro MD Javed Curtis MD IMG STRESS ORDERABLES Fin al Result * FL BARIUM SWALLOW (09/02/2013 11:52 AM EDT) Anatomical Region Laterality Modality Radio Fluoroscop y 09/02/2013 Impressions 09/02/2013 12:01 PM EDT IMPRESSION: Normal esophagram. Narrative 09/02/2013 12:01 PM EDT Esophagram, 09/02/2013 HISTORY: Chest pain, status post recent endoscopy with esophageal dilation. Fluoroscopy time: 1.2 minutes FINDINGS: Content Manager film unremarkable. Esophagus normal in appearance. Normal esophageal motility. No esophageal mass or stricture. No hiatal hernia. No gastroesophageal reflux was seen. Procedure Note Kenny Welch MD - 09/02/2013 Esophagram, 09/02/2013 HISTORY: Chest pain, status post recent endoscopy with esophagealdilation. Fluoroscopy time: 1.2 minutes FINDINGS: Content Manager film unremarkable. Esophagus normal in appearance. Normalesophageal motility. No esophageal mass or stricture. No hiatal hernia. No gastroesophagealreflux was seen. IMPRESSION: Normal esophagram. Dennis Mak MD IMG FLUOROSCOPY ORDERABLES Final Result * SCANNED PRE/POST PROCEDURES (08/19/2013 12:45 AM EDT) 08/19/2013 12:4 5 AM EDT Narrative Procedure Note Unknown, Unknown - 08/19/2013 12:45 AM EDT us Unknown Unknown PROCEDURE/MINOR SURGICAL ORDERAB LES Final Result * SCANNED ANESTHESIA FORMS (08/19/2013 12:45 AM EDT) 08/19/2013 12:4 5 AM EDT Narrative Procedure Note Unknown, Unknown - 08/19/2013 12:45 AM EDT us Unknown Unknown PROCEDURE/MINOR SURGICAL ORDERAB LES Final Result * XR FOOT LEFT AP LATERAL AND OBLIQUE (08/17/2013 9:13 AM EDT) Anatomical Region Laterality Modality Foot Radiographic Allyssa ging 08/17/2013 8:47 AM EDT Impressions 08/17/2013 9:38 AM EDT IMPRESSION: 1. Given reported history, focal osseous defect in the medial aspect of the first metatarsal head, with overlying soft tissue swelling, is suspected to relate to recent osteotomy. 2. Moderate first MTP arthrosis. Narrative 08/17/2013 9:38 AM EDT Left foot 3 views dated 08/17/2013 COMPARISON: 07/14/2013 HISTORY: Postop foot surgery FINDINGS: There is new partially circumscribed bone loss and defect in the medial aspect of the first metatarsal head, which is presumed to be postoperative. Overlying soft tissue swelling also noted at this site. Moderate joint space narrowing and hypertrophic arthrosis of the first MTP joint again noted. No other significant interval changes are identified. Incidental note is made of a small plantar calcaneal spur. Procedure Note Jeremiah Fuentes MD - 08/17/2013 Left foot 3 views dated 08/17/2013 COMPARISON: 07/14/2013 HISTORY: Postop foot surgery FINDINGS: There is new partially circumscribed bone loss and defect in the medialaspect of the first metatarsal head, which is presumed to be postoperative. Overlying softtissue swelling also noted at this site. Moderate joint space narrowing and hypertrophicarthrosis of the first MTP joint again noted. No other significant interval changes are identified.Incidental note is made of a small plantar calcaneal spur. IMPRESSION: 1. Given reported history, focal osseous defect in the medial aspect ofthe first metatarsal head, with overlying soft tissue swelling, is suspected to relate torecent osteotomy. 2. Moderate first MTP arthrosis. Moustapha Shaffer DPM IMG DIAGNOSTIC IMAGING ORDERA BLES Final Result * GMED EGD (08/12/2013 7:30 AM EDT) 08/12/2013 7:30 AM EDT Impressions [facility] - 08/12/2013 7:47 AM EDT Normal stomach. Normal duodenum. Normal mucosa in the whole esophagus. (Dilation). Plan: Follow-up as needed This section is an excerpt of the full report, which can be found by clicking the hyperlink. Dennis Mak MD GI PROCEDURE ORDERABLES Fin al Result Performing Organization Address [facility] Co de Phone Number [facility] [address] [place] [address] * SBCPT-[facility] (08/12/2013 12:00 AM EDT) CPT Code(s) [facility] Comment: [id number], [id number] [employer] assumes no responsibility for the accuracy of CPT codes provided which are for informational purposes only. CPT codes are payor specific and CPT coding is the sole responsibility of the billing entity. 08/12/2013 08/12/2013 11: 40 PM EDT Narrative [facility] - 08/13/2013 4:26 PM EDT FASTING: UNKNOWN Resulting Agency Comment Performing Organization Information: Site ID: [facility]: [facility] Address: [address] [place] [address] [place] [address] Director: Gerhard Hayes MD PhD us Dennis Mak MD [facility]-HEMATOLOGY ORDERABLES Final Result Performing Organization Address City/[facility]/ZIP Co de Phone Number [facility]IL[facility] [address] [address], [place] * TISSUE PATHOLOGY-[facility] (08/12/2013 12:00 AM EDT) Clinical Information ICD9 code (none given) [facility] Pathologist Review [facility] Comment: Neal Isabel M.D., Board Certified, Anatomic Pathology. (electronic signature) Path Clinical Impression Polyps in the transverse colon, grade 1 internal hemorrhoids [facility] Specimen A Source [facility] Comment:Transverse colon gabriela yp Specimen A Procedure [facility] Comment:Biopsy/ies Specimen A Gross Description [facility] Comment: Received two formalin-filled containers labeled with multiple patient identifiers. Container A is labeled transverse colon polyp and consists of two mcgovern polypoid fragments of tissue, 4 to 6 mm in greatest dimension. The smaller fragment is inked black, bisected. The larger fragment is inked blue, bisected. Entirely submitted in cassette A. Gross exam(s) performed at: [facility] [address] [address] Nut Chopper: GERHARD HAYES MD PHD Specimen A Diagnosis [facility] Comment: - Benign hyperplastic polyps. [id number] Specimen B Clinical Impression Polyp in the sigmoid colon, grade 1 internal hemorrhoids [facility] Specimen B Source [facility] Comment:Sigmoid polyp Specimen B Procedure [facility] Comment:Biopsy/ies Specimen B Gross Description [facility] Comment: Container B is labeled sigmoid polyp and consists of a single mcgovern 4 mm soft fragment of tissue. Filtered and entirely submitted in cassette B. TJ Specimen B Diagnosis [facility] Comment: - Tubular adenoma. [id number] 08/12/2013 08/12/2013 11: 40 PM EDT Narrative [facility] - 08/13/2013 4:26 PM EDT FASTING: UNKNOWN Resulting Agency Comment Performing Organization Information: Site ID: [id number] Name: [facility] Address: [address] [place] [address], [place] [address] Director: Neal Isabel MD Dennis Mak MD [facility]/CYTO ORDERABLES Final Result [facility] [address] [facility] [place] [address], [facility] * [facility] COLONOSCOPY (08/12/2013 12:00 AM EDT) 08/12/2013 Impressions [facility] - 08/12/2013 7:44 AM EDT Polyps (3 mm to 4 mm) in the transverse colon. (Polypectomy). Polyp (3 mm) in the sigmoid colon. (Polypectomy). Grade 1 internal hemorrhoids. Plan: Colonoscopy in 5 years. This section is an excerpt of the full report, which can be found by clicking the hyperlink. Dennis Mak MD GI PROCEDURE ORDERABLES Fin al Result Performing Organization Address [facility] Co de Phone Number [facility] [address] [place] [address] * DIFFERENTIAL (08/11/2013 9:50 AM EDT) Neut Percent 46.7 % SE LAB Lymph Percent 42.7 % [facility] Sabine Percent 7.2 % [facility] Eos Percent 3.1 % [facility] Baso Percent 0.3 % [facility] Neut# 2.4 1.8 - 7.7 x10(3)/[facility] Lymph# 2.2 0.6 - 4.8 x10(3)/[facility] Sabine# 0.4 0.0 - 1.3 x10(3)/[facility] Eos# 0.2 0.0 - 0.5 x10(3)/[facility] Baso# 0.0 0.0 - 0.2 x10(3)/[facility] Blood specimen (specimen) 08/11/2013 9:50 AM EDT 08/11/2013 8:52 PM EDT Moustapha Shaffer DPM HEMATOLOGY ORDERABLES Final R esult Performing Organization Address [facility] Co de Phone Number [facility] [address] [place] [address] * MM MOBILE MAMMO DIGITAL SCREEN W CAD TRAMAINE (07/16/2012 1:11 PM EDT) Anatomical Region Laterality Modality Breast Mammography 07/18/2012 10:5 3 AM EDT Impressions 07/18/2012 1:41 PM EDT : No radiographic evidence of malignancy ([id number]-5) ~ RECOMMENDATION: Routine screening mammogram in 1 year. ~ * The patient with a palpable abnormality, unexplained by breast imaging, should be managed on clinical basis by the attending physician. * Breast imaging has a false negative rate of 15%. * The patient was notified by mail of the results of this examination. *The patient's information was entered into a reminder system with a target due date for the next mammogram. The mammogram was reviewed by a Radiologist and CAD. Narrative 07/18/2012 1:41 PM EDT Procedure:MM MOBILE MAMMO DIGITAL SCREEN W CAD TRAMAINE ~ Reason for exam: screening (asymptomatic). ~ MM MOBILE MAMMO DIGITAL SCREEN W CAD TRAMAINE Bilateral CC and MLO view(s) were taken. Prior study comparison: August 02, 2010, bilateral MM MAMMO DIG SCREEN CAD BILAT. The breast tissue is heterogeneously dense. This may lower the sensitivity of mammography. Focal asymmetric density upper outer quadrant right breast, unchanged. Mammogram of the contralateral breast reveals no evidence of malignancy. Compared to prior studies the most recent being 08/02/10. ~ Procedure Note Jonathan Bansal MD - 07/18/2012 Procedure:MM MOBILE MAMMO DIGITAL SCREEN W CAD TRAMAINE ~ Reason for exam: screening (asymptomatic). ~ MM MOBILE MAMMO DIGITAL SCREEN W CAD TRAMAINE Bilateral CC and MLO view(s) were taken. Prior study comparison: August 02, 2010, bilateral MM MAMMO DIGSCREEN CAD BILAT. The breast tissue is heterogeneously dense. This may lower thesensitivity of mammography. Focal asymmetric density upper outer quadrant right breast, unchanged. Mammogram of the contralateral breast reveals no evidence of malignancy. Compared to prior studies the most recentbeing 08/02/10. ~ IMPRESSION: No radiographic evidence of malignancy ([id number]-8) ~ RECOMMENDATION: Routine screening mammogram in 1 year. ~ * The patient with a palpable abnormality, unexplained by breast imaging, should be managed on clinical basis by the attending physician. * Breast imaging has a false negative rate of 15%. * The patient was notified by mail of the results of this examination. *The patient's information was entered into a reminder system with atarget due date for the next mammogram. The mammogram was reviewed by a Radiologist and CAD. us Benita Infante IMG MAMMOGRAPHY ORDERABLES Jill alfaro Result * MRI HIP LEFT WO CONTRAST (07/03/2012 12:31 PM EDT) Anatomical Region Laterality Modality Hip Magnetic Resonan ce 07/03/2012 Impressions 07/03/2012 2:56 PM EDT IMPRESSION: 1. 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 2. Degenerative changes of the right hip and visualized portions of the lower lumbar spine. Degenerative disease seen about the right hip and visualized portions of lower lumbar spine is less prominent radiographically than that seen about the left hip, which is again noted to be end-stage. Narrative 07/03/2012 2:56 PM EDT MRI OF THE LEFT HIP: INDICATIONS: Popping and pain HISTORY: Popping and pain TECHNIQUE: Long and short imaging parameters were obtained in the sagittal, coronal and axial orientation. Examination demonstrates end-stage degenerative disease about the left hip. There is nbfi-kh-jizp articulation with cortical remodeling. There is collapse of the femoral head. Subcortical cyst formation and sclerosis and osteophyte formation are noted. There is loose body formation in the joint space. Most prominent degenerative disease is seen about the right hip. There is also degenerative disease of the visualized portions of the lower lumbar spine. The hamstring mechanisms are intact. There is no evidence of sports hernia by MR criteria. Procedure Note Reymundo Del Toro MD - 07/03/2012 MRI OF THE LEFT HIP: INDICATIONS: Popping and pain HISTORY: Popping and pain TECHNIQUE: Long and short imaging parameters were obtained in thesagittal, coronal and axial orientation. Examination demonstrates end-stage degenerative disease about the lefthip. There is mrcx-kj-vlev articulation with cortical remodeling. There is collapse ofthe femoral head. Subcortical cyst formation and sclerosis and osteophyte formation arenoted. There is loose body formation in the joint space. Most prominent degenerative disease isseen about the right hip. There is also degenerative disease of the visualized portions of thelower lumbar spine. The hamstring mechanisms are intact. There is no evidence of sports herniaby MR criteria. IMPRESSION: 1. 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 2. Degenerative changes of the right hip and visualized portions of thelower lumbar spine. Degenerative disease seen about the right hip and visualized portions oflower lumbar spine is less prominent radiographically than that seen about the left hip, whichis again noted to be end-stage. us Harvey Ba DC IMG MRI ORDERABLES Final Resu lt * SCANNED OR REPORT (06/03/2010 12:00 AM EDT) Narrative 06/03/2010 9:51 PM EDT Ordered by an unspecified provider. Transcriptions Unknown, U - 06/02/2010 8:01 PM EDT us U Unknown PROCEDURE/MINOR SURGICAL ORDERAB LES Final Result * SCANNED OR REPORT (06/02/2010 12:00 AM EDT) Narrative 06/02/2010 12:37 PM EDT Ordered by an unspecified provider. Transcriptions Unknown, U - 06/02/2010 11:06 AM EDT us U Unknown PROCEDURE/MINOR SURGICAL ORDERAB LES Final Result * MM DIGITAL DIAG UNILAT (07/06/2009 9:53 AM EDT) Anatomical Region Laterality Modality Other 07/06/2009 9:53 AM EDT Narrative 07/06/2009 10:25 AM EDT Procedure-MM DIGITAL DIAG UNILAT MM DIGITAL DIAG UNILAT CC and MLO view(s) were taken of the left breast. No abnormality is seen on additional views. IMPRESSION- No radiographic evidence of malignancy (GYV-[id number]-0) RECOMMENDATION- Routine screening mammogram in 1 year. * The patient with a palpable abnormality, unexplained by breast imaging, should be managed on clinical basis by the attending physician. * Breast imaging has a false negative rate of 15%. * The patient was notified by mail of the results of this examination. Offset Second Press Operator- RODRÍGUEZ GIBBS Reading Physician- ERNST WATSON MD Released Date Time- 07/06/09 1134 Procedure Note Ernst Watson - 01/19/2010 Procedure-MM DIGITAL DIAG UNILAT MM DIGITAL DIAG UNILAT CC and MLO view(s) were taken of the left breast. No abnormality is seen on additional views. IMPRESSION- No radiographic evidence of malignancy (VAP-[id number]-6) RECOMMENDATION- Routine screening mammogram in 1 year. * The patient with a palpable abnormality, unexplained by breast imaging, should be managed on clinical basis by the attending physician. * Breast imaging has a false negative rate of 15%. * The patient was notified by mail of the results of this examination. Offset Second Press Operator- RODRÍGUEZ Gracia Physician- ERNST WATSON MD Released Date Time- 07/06/[address] [facility] Evangelista Infante [facility] al Result * MM DIG SCR TRAMAINE PANEL W/CAD (06/30/2009 6:20 PM EDT) Only the most recent of2 resultswithin the time period is included. Anatomical Region Laterality Modality Other 06/30/2009 6:20 PM EDT Narrative 07/01/2009 10:23 AM EDT Procedure-MM DIG SCR TRAMAINE PANEL W/CAD MM DIGITAL SCR BILAT PANEL Bilateral CC and MLO view(s) were taken. Prior study comparison- March 23, 2008, bilateral MM DIGITAL SCR BILAT PANEL. September 03, 2006, bilateral screening mammogram with CAD. August 01, 2005, bilateral screening mammogram with CAD. Focal asymmetric density left upper outer quadrant. Mammogram of the contralateral breast demonstrates no evidence of malignancy. New finding when compared with films dated 03-23-08 IMPRESSION- Incomplete-need additional imaging evaluation ([id number]-9) RECOMMENDATION- Special view mammogram of the left breast. * The patient with a palpable abnormality, unexplained by breast imaging, should be managed on clinical basis by the attending physician. * Breast imaging has a false negative rate of 15%. * The patient was notified by mail of the results of this examination. The mammogram was reviewed by a Radiologist and CAD. Jenni Garcia Physician- RAJ ZHANG MD Released Date Time- 07/01/09 1140 Procedure Note Raj Zhang - 01/19/2010 Procedure-MM DIG SCR TRAMAINE PANEL W/CAD MM DIGITAL SCR BILAT PANEL Bilateral CC and MLO view(s) were taken. Prior study comparison- March 23, 2008, bilateral MM DIGITAL SCR BILAT PANEL. September 03, 2006, bilateral screening mammogram with CAD. August 01, 2005, bilateral screening mammogram with CAD. Focal asymmetric density left upper outer quadrant. Mammogram of the contralateral breast demonstrates no evidence of malignancy. New finding when compared with films dated 03-23-08 IMPRESSION- Incomplete-need additional imaging evaluation (ITM-[id number]-1) RECOMMENDATION- Special view mammogram of the left breast. * The patient with a palpable abnormality, unexplained by breast imaging, should be managed on clinical basis by the attending physician. * Breast imaging has a false negative rate of 15%. * The patient was notified by mail of the results of this examination. The mammogram was reviewed by a Radiologist and CAD. Jenni Jj- RAJ ZHANG MD Released Date Time- 07/01/09 1140 Benita Infante [facility] HISTORICAL Fin al Result * MR LUMBAR SPINE W/O KA MRI (04/19/2009 3:45 PM EDT) Anatomical Region Laterality Modality Other 04/19/2009 3:45 PM EDT Narrative 04/19/2009 5:59 PM EDT Lumbar spine MRI. History- Low back pain. Findings- There is normal alignment of lumbar spine. Conus ends at T12-L1. There is very slight curvature of the lumbar spine to the left. At L4-L5 there is a mild diffuse disc bulge. There is moderate facet hypertrophy. There is mild narrowing of the neural foramina bilaterally due to facet hypertrophy. Mild facet hypertrophy seen at L5-S1 without significant foraminal narrowing on the right. There is posterior superior narrowing of the left neural foramen due to spurring of the facet. There is mild diffuse disc bulge with vertebral marginal osteophytes at L2-L3 resulting in mild central canal stenosis and bilateral moderate foraminal narrowing. Mild to moderate facet hypertrophy also present at that level. Impression- Degenerative changes of lumbar spine as described above. Greatest left foraminal narrowing is at L5-S1 due to spur projecting from the facet. [employer] Operator- RADHA Garcia Physician- ILANA SHI MD Released Date Time- 04/19/091927 Procedure Note Ilana Shi - 01/19/2010 Lumbar spine MRI. History- Low back pain. Findings- There is normal alignment of lumbar spine. Conus ends at T12-L1. There is very slight curvature of the lumbar spine to the left. At L4-L5 there is a mild diffuse disc bulge. There is moderate facet hypertrophy. There is mild narrowing of the neural foramina bilaterally due to facet hypertrophy. Mild facet hypertrophy seen at L5-S1 without significant foraminal narrowing on the right. There is posterior superior narrowing of the left neural foramen due to spurring of the facet. There is mild diffuse disc bulge with vertebral marginal osteophytes at L2-L3 resulting in mild central canal stenosis and bilateral moderate foraminal narrowing. Mild to moderate facet hypertrophy also present at that level. Impression- Degenerative changes of lumbar spine as described above. Greatest left foraminal narrowing is at L5-S1 due to spur projecting from the facet. Offset Second Press Operator- RADHA Garcia Physician- ILANA SHI MD Released Date Time- 04/19/09 1928 Michaela Palacio MD IMG [facility] HISTORICAL Fi nal Result * EK EKG REG (11/27/2008 2:26 PM EST) Anatomical Region Laterality Modality Other 11/27/2008 2:26 PM EST Narrative 11/28/2008 11:16 AM EST Sinus rhythm with PVC(s) Anterior T wave changes are nonspecific Borderline ECG No previous records available at this time Clinical correlation is recommended. Offset Second Press Operator- FRANKLIN GRACIA M.D. Reading Physician- FRANKLIN GARCIA M.D. Released Date Time- 11/28/08 1116 Procedure Note Franklin Garcia - 01/19/2010 Sinus rhythm with PVC(s) Anterior T wave changes are nonspecific Borderline ECG No previous records available at this time Clinical correlation is recommended. Offset Second Press Operator- FRANKLIN GARCIA M.D. Reading Physician- FRANKLIN GARCIA M.D. Released Date Time- 11/28/08 1116 Eliseo Martel MD [facility] CARD HISTORICAL Final Result * XR FOOT & TOES (06/29/2008 3:01 PM EDT) Anatomical Region Laterality Modality Other 06/29/2008 3:01 PM EDT Narrative 06/29/2008 7:17 PM EDT Right foot and toes, 06/29/2008- Indication- Pain. Three views right foot and toes show midfoot degenerative change, hallux valgus, bunion formation, and hallux MTP degenerative change. No acute fracture. Offset Second Press Operator- ERICA Garcia Physician- CONNOR PAYTON MD Released Date Time- 06/29/082025 Procedure Note Connor Payton - 01/19/2010 Right foot and toes, 06/29/2008- Indication- Pain. Three views right foot and toes show midfoot degenerative change, hallux valgus, bunion formation, and hallux MTP degenerative change. No acute fracture. Offset Second Press Operator- ERICA Jj- CONNOR PAYTON MD Released Date Time- 06/29/082025 [facility] [employer] HISTORICAL Fin al Result * XR WRIST (11/05/2006 10:00 AM EST) Anatomical Region Laterality Modality Other 11/05/2006 10:0 0 AM EST Narrative 11/05/2006 11:05 AM EST FOUR VIEWS OF RIGHT WRIST - 11/05/06 History- Pain in the scaphoid region. No injury. There is no evidence of fracture or dislocation. No significant arthritic process is seen. Offset Second Press Operator- RACHID Garcia Radiologist- CHANA JASSO MD Released Date Time- 11/05/06 1309 Procedure Note Chana Jasso - 01/18/2010 FOUR VIEWS OF RIGHT WRIST - 11/05/06 History- Pain in the scaphoid region. No injury. There is no evidence of fracture or dislocation. No significant arthritic process is seen. Offset Second Press Operator- RACHID Garcia Radiologist- CHANA JASSO MD Released Date Time- 11/05/06 1309 Benita Infante [facility] [employer] [facility] HISTORICAL Fin al Result * FL STOMACH/ESOPHAGUS CORPORATE TREASURER (10/18/2006 8:00 AM EST) Anatomical Region Laterality Modality Other 10/18/2006 8:00 AM EST Narrative 10/18/2006 9:36 AM EST [facility] Upper GI series on 10/18/2006. 1. History- Dysphagia. 2. Preliminary study of the abdomen reveals no significant abnormality. 3. Upper GI series reveals no abnormality of the esophagus. The stomach shows a very small 2-3 cm sliding hiatal hernia, but no gastroesophageal reflux could be demonstrated. The stomach shows no ulcer crater, filling defect, or other abnormality, and the stomach empties at a normal rate. The duodenal bulb is normal. The duodenal loop and proximal small bowel pattern are normal. Impression- Small sliding gastric hiatal hernia without gastroesophageal reflux or other abnormality in the upper gastroenteric tract. Offset Second Press Operator- LYDIA FREGOSO Reading Radiologist- KAREN REYES MD Released Date Time- 10/18/06 1502 Procedure Note Karen Reyes - 01/18/2010 [facility] Upper GI series on 10/18/2006. 1. History- Dysphagia. 2. Preliminary study of the abdomen reveals no significant abnormality. 3. Upper GI series reveals no abnormality of the esophagus. The stomach shows a very small 2-3 cm sliding hiatal hernia, but no gastroesophageal reflux could be demonstrated. The stomach shows no ulcer crater, filling defect, or other abnormality, and the stomach empties at a normal rate. The duodenal bulb is normal. The duodenal loop and proximal small bowel pattern are normal. Impression- Small sliding gastric hiatal hernia without gastroesophageal reflux or other abnormality in the upper gastroenteric tract. Offset Second Press OperatorDenzel Garcia Radiologist- KAREN REYES MD Released Date Time- 10/18/06 1502 R Evangelista Infante [facility] RAD HISTORICAL Fin al Result * MM MAMMO SCREEN W/CAD II PANEL (09/03/2006 12:20 PM EDT) Only the most recent of2 resultswithin the time period is included. Anatomical Region Laterality Modality Other 09/03/2006 12:2 0 PM EDT Narrative 09/03/2006 2:21 PM EDT Procedure-WW MAMMO SCREEN W/CAD II PANEL Reason for exam- screening. Screening Mammogram With CAD Bilateral CC and MLO view(s) were taken. Prior study comparison- August 01, 2005, bilateral screening mammogram with CAD. April 03, 2001, bilateral screening mammogram. There are scattered fibroglandular densities. Focal asymmetric density upper outer quadrant right breast, unchanged. Mammogram of the contralateral breast reveals no evidence of malignancy. No significant changes when compared with prior studies. IMPRESSION- Benign finding ([id number]) RECOMMENDATION- Routine screening mammogram in 1 year. * The patient with a palpable abnormality, unexplained by breast imaging, should be managed on clinical basis by the attending physician. * Breast imaging has a false negative rate of 15%. * The patient was notified by mail of the results of this examination. The mammogram was reviewed by a Radiologist and CAD. Offset Second Press Operator- RALPH Garcia Radiologist- JONATHAN BANSAL MD Released Date Time- 09/03/06 1422 Procedure Note Jonathan Bansal - 01/18/2010 Procedure-WW MAMMO SCREEN W/CAD II PANEL Reason for exam- screening. Screening Mammogram With CAD Bilateral CC and MLO view(s) were taken. Prior study comparison- August 01, 2005, bilateral screening mammogram with CAD. April 03, 2001, bilateral screening mammogram. There are scattered fibroglandular densities. Focal asymmetric density upper outer quadrant right breast, unchanged. Mammogram of the contralateral breast reveals no evidence of malignancy. No significant changes when compared with prior studies. IMPRESSION- Benign finding ([id number]) RECOMMENDATION- Routine screening mammogram in 1 year. * The patient with a palpable abnormality, unexplained by breast imaging, should be managed on clinical basis by the attending physician. * Breast imaging has a false negative rate of 15%. * The patient was notified by mail of the results of this examination. The mammogram was reviewed by a Radiologist and CAD. Offset Second Press Operator- RALPH Garcia Radiologist- JONATHAN BANSAL MD Released Date Time- 09/03/[address] 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 Discussion- The lungs are clear. No nodules or masses are evident. Heart and mediastinal structures appear normal aside from mild tortuosity and calcification of the thoracic aorta. No pleural effusion. Mild dextroscoliosis and minimal spondylosis dorsal spine. Impression- No acute cardiopulmonary disease. 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 Discussion- The lungs are clear. No nodules or masses are evident. Heart and mediastinal structures appear normal aside from mild tortuosity and calcification of the thoracic aorta. No pleural effusion. Mild dextroscoliosis and minimal spondylosis dorsal spine. Impression- No acute cardiopulmonary disease. Offset Second Press Operator- RADHA SWANSON Reading Radiologist- MAURICE NOONAN MD Released Date Time- 02/13/06 1654 Michaela Palacio MD [facility] HISTORICAL Fi nal Result Visit Diagnoses Diagnosis Start Date Other screening mammogram 08/02/2010 Pain in joint, other specified sites 07/03/2012 Other screening mammogram 07/16/2012 Bunion 07/14/2013 Dysphagia Dysphagia, unspecified 07/14/2013 Family history of colon cancer Family history of malignant neoplasm of gastrointestinal tract 07/14/2013 Hallux valgus (acquired) 08/17/2013 Nausea Nausea alone 08/27/2013 Sternum pain Chest pain, unspecified 08/27/2013 Abdominal pain, acute, epigastric Abdominal pain, epigastric 08/27/2013 Nausea Nausea alone 09/02/2013 Sternum pain Chest pain, unspecified 09/02/2013 Abdominal pain, acute, epigastric Abdominal pain, epigastric 09/02/2013 Other screening mammogram 10/29/2013 Leg edema Edema 09/13/2014 Leg pain Pain in limb 09/13/2014 Chest pain, unspecified 11/26/2014 Chest pain Chest pain, unspecified 11/29/2014 Chest pain Chest pain, unspecified 11/29/2014 Heart rate slow Other specified cardiac dysrhythmias 03/05/2015 Other screening mammogram 05/12/2015 Transient elevated blood pressure Elevated blood pressure reading without diagnosis of hypertension 10/03/2015 Neck pain Cervicalgia 05/16/2016 Visit for screening Screening for unspecified condition 05/16/2016 Cervical radiculopathy Brachial neuritis or radiculitis nos 06/14/2016 Cough 10/30/2016 Traumatic injury of head, sequela 09/18/2018 Low back pain, unspecified back pain laterality, unspecified chronicity, with sciatica presence unspecified 09/18/2018 Strain of neck muscle, initial encounter 10/30/2018 Strain of thoracic region, initial encounter 10/30/2018 Strain of lumbar region, initial encounter 10/30/2018 Strain of neck muscle, initial encounter 10/30/2018 Strain of thoracic region, initial encounter 10/30/2018 Strain of lumbar region, initial encounter 10/30/2018 Strain of neck muscle, initial encounter 10/30/2018 Strain of thoracic region, initial encounter 10/30/2018 Strain of lumbar region, initial encounter 10/30/2018 Bilateral hip pain Pain in joint, pelvic region and thigh 01/28/2019 Post concussion syndrome Postconcussion syndrome 05/05/2019 Preop examination Preoperative examination, unspecified 05/07/2019 Post concussion syndrome Postconcussion syndrome 05/07/2019 Encounter for preadmission testing 05/07/2019 Anticoagulation adequate Encounter for long-term (current) use of anticoagulants 05/07/2019 Preop testing Preoperative examination, unspecified 05/07/2019 Primary osteoarthritis of right hip Primary localized osteoarthrosis, pelvic region and thigh 05/07/2019 Primary osteoarthritis of right hip Primary localized osteoarthrosis, pelvic region and thigh 05/19/2019 Right foot pain Pain in limb 08/28/2019 Left foot pain Pain in limb 08/28/2019 Hallux valgus of left foot 08/28/2019 Left foot pain Pain in limb 08/28/2019 Right foot pain Pain in limb 08/28/2019 Breast mass, right Lump or mass in breast 09/03/2019 Hallux valgus of left foot 09/03/2019 Hammer toe of left foot 09/03/2019 Exostosis Exostosis of unspecified site 09/03/2019 Rheumatoid arthritis, involving unspecified site, unspecified rheumatoid factor presence 09/03/2019 Well woman exam Routine general medical examination at a health care facility 09/03/2019 Encounter for screening mammogram for breast cancer 09/03/2019 Encounter for screening colonoscopy Special screening for malignant neoplasms, colon 09/03/2019 Breast mass, right Lump or mass in breast 09/03/2019 FHx: BRCA gene positive Family history of genetic disease carrier 09/03/2019 Breast mass, right Lump or mass in breast 09/04/2019 Breast mass, right Lump or mass in breast 09/11/2019 Iron deficiency anemia, unspecified iron deficiency anemia type 09/28/2019 Iron deficiency anemia, unspecified iron deficiency anemia type 09/28/2019 Right shoulder pain, unspecified chronicity 12/02/2019 Left shoulder pain, unspecified chronicity 12/02/2019 Left knee pain, unspecified chronicity 12/02/2019 Encounter for laboratory testing for COVID-19 virus 04/12/2020 Iron deficiency anemia, unspecified 04/15/2020 Diaphragmatic hernia without obstruction or gangrene Diaphragmatic hernia without mention of obstruction or gangrene 04/15/2020 Diverticulosis of large intestine without perforation or abscess without bleeding Diverticulosis of colon (without mention of hemorrhage) 04/15/2020 Polyp of colon Benign neoplasm of colon 04/15/2020 Polyp of colon, unspecified part of colon, unspecified type 04/20/2020 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 04/26/2020 Liver lesion Other specified disorders of liver 04/26/2020 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 04/28/2020 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 04/28/2020 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 05/10/2020 Liver lesion Other specified disorders of liver 05/10/2020 Preop testing Preoperative examination, unspecified 05/20/2020 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 05/20/2020 Pre-op testing Preoperative examination, unspecified 05/29/2020 Encounter for laboratory testing for COVID-19 virus 05/29/2020 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 05/31/2020 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 06/02/2020 Liver lesion Other specified disorders of liver 06/02/2020 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 06/02/2020 Liver lesion Other specified disorders of liver 06/02/2020 Postop check Follow-up examination, following unspecified surgery 06/21/2020 Postop check Follow-up examination, following unspecified surgery 06/21/2020 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 06/21/2020 Follow-up examination following surgery Follow-up examination, following unspecified surgery 07/22/2020 Right lower quadrant abdominal pain Abdominal pain, right lower quadrant 07/22/2020 Urinary frequency 07/22/2020 History of uterine prolapse Personal history of other genital system and obstetric disorders 07/22/2020 Right lower quadrant abdominal pain Abdominal pain, right lower quadrant 07/28/2020 Urinary frequency 07/28/2020 Chronic RLQ pain Abdominal pain, right lower quadrant 08/02/2020 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 08/02/2020 Personal history of malignant neoplasm of rectum, rectosigmoid junction, and anus 09/28/2020 Personal history of malignant neoplasm of rectum, rectosigmoid junction, and anus 09/28/2020 Personal history of malignant neoplasm of rectum, rectosigmoid junction, and anus 10/04/2020 Breast asymmetry 02/09/2021 Personal history of malignant neoplasm of rectum, rectosigmoid junction, and anus 04/26/2021 Personal history of malignant neoplasm of rectum, rectosigmoid junction, and anus 05/03/2021 Left hand pain Pain in limb 05/05/2021 History of colon cancer Personal history of malignant neoplasm of large intestine 07/13/2021 History of colon cancer Personal history of malignant neoplasm of large intestine 07/13/2021 Encounter for screening for COVID-19 08/11/2021 Personal history of other malignant neoplasm of large intestine 08/14/2021 Polyp of colon Benign neoplasm of colon 08/14/2021 Varicose veins of right lower extremity with edema 08/17/2021 History of cancer of rectosigmoid junction 12/11/2021 Personal history of malignant neoplasm of rectum, rectosigmoid junction, and anus 12/21/2021 Encounter for screening mammogram for malignant neoplasm of breast Other screening mammogram 03/05/2022 History of cancer of rectosigmoid junction 07/26/2022 Personal history of colon cancer Personal history of malignant neoplasm of large intestine 08/21/[address] scan, lung Other nonspecific abnormal finding of lung field 08/21/2022 Lung nodule Solitary pulmonary nodule 09/09/2022 Personal history of colon cancer Personal history of malignant neoplasm of large intestine 09/10/2022 Lung nodule Solitary pulmonary nodule 12/25/2022 History of cancer of rectosigmoid junction 01/29/2023 Rheumatoid arthritis of multiple sites 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 (HCC) Rheumatoid arthritis 02/21/2023 Primary generalized (osteo)arthritis Generalized osteoarthrosis, involving multiple sites 02/21/2023 Fibromyalgia Mylagia and myositis, unspecified 02/21/2023 Visit for screening mammogram Other screening mammogram 05/16/2023 Rheumatoid arthritis of multiple sites 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 (HCC) Rheumatoid arthritis 06/27/2023 Primary generalized (osteo)arthritis Generalized osteoarthrosis, involving multiple sites 06/27/2023 Fibromyalgia Mylagia and myositis, unspecified 06/27/2023 Drug therapy Encounter for other specified aftercare 06/27/2023 Food impaction of esophagus, initial encounter 08/02/2023 Personal history of colon cancer Personal history of malignant neoplasm of large intestine 09/03/2023 Urinary frequency 09/03/2023 Primary generalized (osteo)arthritis Generalized osteoarthrosis, involving multiple sites 09/04/2023 Rheumatoid arthritis of multiple sites 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 (HCC) Rheumatoid arthritis 09/04/2023 Primary generalized (osteo)arthritis Generalized osteoarthrosis, involving multiple sites 09/09/2023 Rheumatoid arthritis of multiple sites 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 (HCC) Rheumatoid arthritis 09/09/2023 Rheumatoid arthritis of multiple sites 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 (HCC) Rheumatoid arthritis 11/19/2023 Rheumatoid arthritis of multiple sites 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 (HCC) Rheumatoid arthritis 12/12/2023 Drug therapy Encounter for other specified aftercare 12/12/2023 Personal history of colon cancer Personal history of malignant neoplasm of large intestine 12/27/2023 Rheumatoid arthritis of multiple sites 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 (HCC) Rheumatoid arthritis 01/02/2024 Drug therapy Encounter for other specified aftercare 01/02/2024 Primary generalized (osteo)arthritis Generalized osteoarthrosis, involving multiple sites 01/02/2024 Fibromyalgia Mylagia and myositis, unspecified 01/02/2024 Lung nodule Solitary pulmonary nodule 01/03/2024 Rheumatoid arthritis of multiple sites 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 (HCC) Rheumatoid arthritis 02/01/2024 Lung nodule Solitary pulmonary nodule 04/02/2024 Rheumatoid arthritis of multiple sites 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 (HCC) Rheumatoid arthritis 04/16/2024 Rheumatoid arthritis of multiple sites 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 (HCC) Rheumatoid arthritis 06/17/2024 Rheumatoid arthritis of multiple sites 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 (HCC) Rheumatoid arthritis 07/01/2024 Rheumatoid arthritis of multiple sites 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 (HCC) Rheumatoid arthritis 08/10/2024 Drug therapy Encounter for other specified aftercare 08/10/2024 Primary generalized (osteo)arthritis Generalized osteoarthrosis, involving multiple sites 08/10/2024 Fibromyalgia Mylagia and myositis, unspecified 08/10/2024 Rheumatoid arthritis of multiple sites 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 (HCC) Rheumatoid arthritis 09/03/2024 Rheumatoid arthritis of multiple sites 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 (HCC) Rheumatoid arthritis 09/18/2024 Rheumatoid arthritis of multiple sites 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 (HCC) Rheumatoid arthritis 12/31/2024 Rheumatoid arthritis of multiple sites 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 (HCC) Rheumatoid arthritis 01/26/2025 Rheumatoid arthritis of multiple sites 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 (HCC) Rheumatoid arthritis 02/04/2025 Drug therapy Encounter for other specified aftercare 02/04/2025 Primary generalized (osteo)arthritis Generalized osteoarthrosis, involving multiple sites 02/04/2025 Fibromyalgia Mylagia and myositis, unspecified 02/04/2025 Rheumatoid arthritis of multiple sites 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 (HCC) Rheumatoid arthritis 02/08/2025 Rheumatoid arthritis of multiple sites 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 (HCC) Rheumatoid arthritis 02/19/2025 Drug therapy Encounter for other specified aftercare 02/19/2025 Rheumatoid arthritis of multiple sites 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 (HCC) Rheumatoid arthritis 03/09/2025 Acute right ankle pain 04/04/2025 Foot pain, right Pain in limb 04/04/2025 Acute right ankle pain 04/04/2025 Foot pain, right Pain in limb 04/04/2025 Acute non-recurrent maxillary sinusitis 04/04/2025 Hallux valgus (acquired) 08/17/2013 Psoriatic arthritis (HCC) Psoriatic arthropathy 05/19/2019 Fibromyalgia Mylagia and myositis, unspecified 05/19/2019 Hypertension Unspecified essential hypertension 05/19/2019 Motion sickness 05/19/2019 Osteoarthritis of right hip Osteoarthrosis, unspecified whether generalized or localized, pelvic region and thigh 05/19/2019 Polypharmacy Issue of repeat prescriptions 05/19/2019 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
--- OUTSIDE RECORDS SUMMARY | 2025-05-20 15:37 | XMS_ITS | Encounter Summary ---
Author Organization [facility] [place] [address] Care Team Providers Care Home Organizer Name Role Phone Benita Infante Primary Care Provider [phone] Dennis Mak MD Unavailable [phone] Michaela Palacio MD Unavailable [phone] Encounter Details Date Type Department Care Team (Late st Contact Info) Description 04/06/2025 Orders Only [facility] [address] [address] Lidia Emanuel MA Social History Tobacco Use Types Packs/Day [...] Description 08/05/2025 2:00 PM EDT Office Visit [facility] [address] [place] [address] Michaela Palacio MD [address] [place] [address] documented as of this encounter Visit Diagnoses Not on filedocumented in this encounter Discontinued Medications Medication Sig Discontinue Reason Start Date End Da te benzonatate (TESSALON) 200 mg Oral Capsule Take 1 Capsule by mouth 3 times daily as needed for Cough for up to 5 days. swallow capsule whole Reorder 04/06/2025 04/06/2025 documented as of this encounter Care Teams Home Organizer Relationship Specialty Start Date End Date Benita Infante [address] [place] [address] [address] [place] [address] PCP - General 07/10/10 Dennis Mak MD [address] [facility] [address] Internal Medicine-Gastroenterology 07/14/13 Michaela Palacio MD [address] [place] [address] Internal Medicine-Rheumatology 02/20/23 documented as of this encounter
--- OUTSIDE RECORDS SUMMARY | 2025-05-20 15:37 | XMS_ITS | Encounter Summary ---
Author Organization [facility] [address] Care Team Providers Care Microarray Analyst Name Role Phone Benita Infante Primary Care Provider [phone] Dennis Mak MD Unavailable [phone] Michaela Palacio MD Unavailable [phone] Encounter Details Date Type Department Care Team (Late st Contact Info) Description 08/12/2013 Orders Only [facility] [address] [facility] [address] [place] [address] Dennis Mak MD [address] [facility] [place] [address] Social History Tobacco Use Types [...] Visit [facility] [address] [place] [address] Michaela Palacio MD [address] [place] [address] documented as of this encounter Procedures Procedure Name Priority Date/Time Associated Diagnosis Comments GMED COLONOSCOPY Routine 08/12/2013 12:0 0 AM EDT documented in this encounter Results * GMED COLONOSCOPY (08/12/2013 12:00 AM EDT) 08/12/2013 Impressions [facility] - 08/12/2013 7:44 AM EDT Polyps [...] ORDERABLES Fin al Result Performing Organization Address City/State/[facility] Co de Phone Number [facility] [address] [place] [id number] documented in this encounter Visit Diagnoses Not on filedocumented in this encounter Care Teams Microarray Analyst Relationship Specialty Start Date End Date Benita Infante [address] [place] [address] [address] [place] [address] PCP - General 07/10/10 Dennis Mak MD [address] [place] [address] [address] [place] [address] Internal Medicine-Gastroenterology 07/14/13 Michaela Palacio MD [address] [place] [address] Internal Medicine-Rheumatology 02/20/23 documented as of this encounter
--- OUTSIDE RECORDS SUMMARY | 2025-05-20 15:37 | XMS_ITS | Encounter Summary ---
Author Organization [place] [address] Care Team Providers Care Bacon Slicer Name Role Phone Benita Infante Primary Care Provider [phone] Dennis Mak MD Unavailable [phone] Michaela Palacio MD Unavailable [phone] Encounter Details Date Type Department Care Team (Late st Contact Info) Description 08/14/2021 Lab Requisition [facility] [place] [address] Dennis Mak MD [address] [place] [address] Personal history of other malignant neoplasm of large intestine; Polyp of colon Social History Tobacco Use [...] Description 08/05/2025 2:00 PM EDT Office [facility] [address] [place] [address] Michaela Palacio MD [address] [place] [address] documented as of this encounter Procedures Procedure Name Priority Date/Time Associated Diagnosis Comments PATHOLOGY TISSUE REQUEST Routine 08/14/2021 11:00 AM EDT Personal history of other malignant neoplasm of large intestine Polyp of colon documented in this encounter Results * PATHOLOGY TISSUE REQUEST (08/14/2021 11:00 AM EDT) CASE REPORT Surgical Pathology Case: [id number] Authorizing Provider: Dennis Mak MD Collected: 08/14/2021 1100 Ordering Location: [facility] Received: 08/14/2021 1544 Pathologist: Manuel Brito MD Specimen: Large Intestine, Left/Descending Colon 08/15/2021 11:55 AM EDT [facility] FINAL DIAGNOSIS Descending Colon Polyp x 2: - Sessile Serrated Polyps, Negative For High-Grade Dysplasia. 08/15/2021 11:55 AM EDT [facility] at 1155 EDT GROSS DESCRIPTION [...] 08/14/2021 3:52 PM 08/15/2021 11:55 AM EDT [facility] MICROSCOPIC DESCRIPTION Microscopic examination is performed and the findings corroborate the diagnosis. 08/15/2021 11:55 AM EDT [facility] EMBEDDED IMAGES 08/15/2021 11:55 AM EDT [facility] Tissue DESCENDING COLON STRUCTURE / Unknown 08/14/2021 11:00 AM EDT 08/14/2021 3:44 PM EDT Dennis Mak MD PATHOLOGY ORDERABLES Final Result [facility] [address] [place] [address] [id number] documented in this encounter Visit Diagnoses Diagnosis Personal history of other malignant neoplasm of large intestine Polyp of colon Benign neoplasm of colon documented in this encounter Care Teams Bacon Slicer Relationship Specialty Start Date End Date Benita Infante [address] [place] [address] PCP - General 07/10/10 Dennis Mak MD [address] [place] [address] Internal Medicine-Gastroenterology 07/14/13 Michaela Palacio MD [address] [place] [address] Internal Medicine-Rheumatology 02/20/23 documented as of this encounter
== END 2025-05-20 23:59 | disposition home or self-care (01) ==
LOC: RAD 15:33
PROVIDERS: PCP Physician Assistant; Visit Provider Physician Assistant
DX: Z12.31 Encounter for screening mammogram for malignant neoplasm of breast (principal); R92.323 Mammographic fibroglandular density, bilateral breasts
CPT/HCPCS: 77063; 77067

== ENCOUNTER 2025-05-28 12:01 | Outpatient (CLI) | payer MEDICARE, MEDICAID, SELFPAY ==
--- OUTSIDE RECORDS SUMMARY | 2025-05-28 12:03 | XMS_ITS | Referral Summary ---
Author Organization [facility] Address [address] [place], [place] [address] [address] Care Team Providers Care Electro Mechanical Solar Technician Name Role Phone Unavailable Primary Care Provider [...]
--- OUTSIDE RECORDS SUMMARY | 2025-05-28 12:03 | XMS_ITS | Clinical Summary ---
Author Organization [facility] Address [facility] [place] [address] Care Team Providers Care Food Server Name Role Phone Unavailable Primary Care Provider [...] (#1) 2005 DEXA Scan 01/24/2020 Influenza Vaccine (#1) 2025 RSV Vaccine (60+ or ) (1 [...]
--- OUTSIDE RECORDS SUMMARY | 2025-05-28 12:03 | XMS_ITS | Clinical Summary ---
Author Organization [facility] Address [address] [place], [place] [address] Care Team Providers Care Revenue Tax Specialist Name Role Phone Nonstaff, Referring MD Primary Care Provider [phone] Dwain Choi MD Unavailable [phone] Allergies Active Allergy Reactions Criticality Noted [...] series) 2030 Medical Devices Implanted Type Area Hotel Sales Manager Device Identifier Shelf Expiration Date Model / Serial / Lot Scr Canc Acetab 6.5x40mm Implanted:Qty: 1 on 2013 by Dwain Choi MD at [facility] [place] Left: Hip * J \T\ J DEPUY 12/11/2022 [id number] / / [id number] Head Fem Cocr 10/24 28mm+5 Implanted:Qty: 1 on 2013 by Dwain Choi MD at [facility] [place] Left: Hip * J \T\ J DEPUY 06/10/2016 1365-12-000 / / [id number] Stem Fem Std Collar Corail 11 Implanted:Qty: 1 on 2013 by Dwain Choi MD at [facility] [place] Left: Hip * J \T\ J DEPUY [id number] / / [id number] Eliminator Protivin H Pos Stop Implanted:Qty: 1 on 2013 by Dwain Choi MD at [facility] [place] Left: Hip * J \T\ J DEPUY 11/10/2022 [id number] / / [id number] Cup Acetab Sector 50mm Implanted:Qty: 1 on 2013 by Dwain Choi MD at [facility] [place] Left: Hip * J \T\ J DEPUY 12/11/2022 1217-22-050 / / [id number] [place] Altrx Polyethylene Acetabular Liner Neutral 28mm Id X 50mm Od Implanted:Qty: 1 on 2013 by Dwain Choi MD at [facility] [place] Left: Hip * USE JJ DEPU 05/10/2016 1221-28-050 / / [id number] Hip Total Con Tier 2 Depuy Implanted:Qty: 1 on 2013 by Dwain Choi MD at [facility] [place] Left: Hip * J \T\ J DEPUY HIPS TIER 2 / / Insurance AETNA AETNA Advance Directives For more information, please contact: [phone] * Full Code (Latest Code Status on File) Date Activated Date Inactivated Comments 2013 3:09 PM 01/24/2013 10:13 PM Care Teams Revenue Tax Specialist Relationship Specialty [place] [address] [place] [address] PCP - General Family Medicine 01/08/13 Dwain Choi MD [address] [place], [place] [address] Orthopedic Surgery 11/18/22
== END 2025-05-28 23:59 | disposition home or self-care (01) ==
LOC: LAB.DROPOF 12:02
PROVIDERS: PCP Physician Assistant; Visit Provider Physician Assistant
DX: R19.5 Other fecal abnormalities (principal)
CPT/HCPCS: 87045; 87177

== ENCOUNTER 2025-06-14 12:36 | Outpatient (CLI) | payer MEDICARE, MEDICAID, SELFPAY ==
--- OUTSIDE RECORDS SUMMARY | 2025-06-14 12:38 | XMS_ITS | Clinical Summary ---
Author Organization [facility] Address [address] [place], [place] [address] Care Team Providers Care Service Transformer Repair Supervisor Name Role Phone Nonstaff, Referring MD Primary Care Provider [phone] Dwain Choi MD Unavailable [phone] Allergies Active Allergy Reactions Criticality Noted [...] series) 2030 Medical Devices Implanted Type Area Taproom Attendant Device Identifier Shelf Expiration Date Model / Serial / Lot Scr Canc Acetab 6.5x40mm Implanted:Qty: 1 on 2013 by Dwain Choi MD at [facility] Left: Hip * J \T\ J DEPUY 12/11/2022 [id number] / / [id number] Head Fem Cocr 10/24 28mm+5 Implanted:Qty: 1 on 2013 by Dwain Choi MD at [facility] [place] Left: Hip * J \T\ J DEPUY 06/10/2016 1365-12-000 / / [id number] Stem Fem Std Collar Corail 11 Implanted:Qty: 1 on 2013 by Dwain Choi MD at [facility] [place] Left: Hip * J \T\ J DEPUY [id number] / / [id number] Eliminator [place] H Pos Stop Implanted:Qty: 1 on 2013 by Dwain Choi MD at [facility] [place] Left: Hip * J \T\ J DEPUY 11/10/2022 [id number] / / [id number] Cup Acetab Sector 50mm Implanted:Qty: 1 on 2013 by Dwain Choi MD at [facility] [place] Left: Hip * J \T\ J DEPUY 12/11/2022 1217-22-050 / / [id number] Altrx Polyethylene Acetabular Liner Neutral 28mm Id X 50mm Od Implanted:Qty: 1 on 2013 by Dwain Choi MD at [facility] [place] Left: Hip * USE JJ DEPU 05/10/2016 1221-28-050 / / [id number] Hip Total Con Tier 2 Depuy Implanted:Qty: 1 on 2013 by Dwain Choi MD at [facility] [place] Left: Hip * J \T\ J DEPUY HIPS TIER 2 / / Insurance AETNA AETNA Advance Directives For more information, please contact: [phone] * Full Code (Latest Code Status on File) Date Activated Date Inactivated Comments 2013 3:09 PM 01/24/2013 10:13 PM Care Teams Service Transformer Repair Supervisor Relationship Specialty [place] [address] [place] [address] PCP - General Family Medicine 01/08/13 Dwain Choi MD [address] [place], [place] [address] Orthopedic Surgery 11/18/22
--- OUTSIDE RECORDS SUMMARY | 2025-06-14 12:38 | XMS_ITS | Encounter Summary ---
Author Organization [facility] Address [facility] [address] Care Team Providers Care Sausage Stringer Name Role Phone Benita Infante Primary Care Provider [phone] Dennis Mak MD Unavailable [phone] Michaela Palacio MD Unavailable [phone] Encounter Details Date Type Department Care Team (Late st Contact Info) Description 06/02/2020 Orders Only [facility] [place] [address] Manuel Brito MD Social History [...] Description 08/05/2025 2:00 PM EDT Office Visit [facility] [address] [place] [address] Michaela Palacio MD [address] [place] [address] documented as of this encounter [...] MLH1 in formalin-fixed paraffin-embedded tissue sections. A polymerArboribus based system was used for detection. MLH1 (Disclaimer) = MMR references ranges are based on [employer]` internal validation, and we recommend cases with equivocal staining be confirmed with microsatellite instability (MSI) testing. MLH1 (Control Statement) = The digitized slide(s) was/were adequate for quantitative image analysis. All controls were reviewed and showed appropriate positive and negative immunoreactivity. MLH1 (Image Analysis Statement) = Whole slide image capture was performed with the [employer]io ScanScope and quantitative computer-assisted image analysis using Ymagis software. MSH2 (Intended Use) = Mismatch repair [...] MSH2 in formalin-fixed paraffin-embedded tissue sections. A polymerArboribus based system was used for detection. MSH6 [...] MSH6 in formalin-fixed paraffin-embedded tissue sections. A polymerArboribus based system was used for detection. PMS2 [...] PMS2 in formalin-fixed paraffin-embedded tissue sections. A Cloudant based system was used for detection. [facility] 06/02/2020 1:[address] [facility] - 06/13/2020 1:22 PM EDT Requesting Provider: Gonzalez Hollingsworth Specimen = [id number] us Manuel Brito MD PATHOLOGY ORDERABLES Final Res ult [facility] [address] [place] [address] documented in this encounter Visit Diagnoses Not on filedocumented in this encounter Care Teams Sausage Stringer Relationship Specialty Start Date End Date Benita Infante [facility] [address] [place] [address] PCP - General 07/10/10 Dennis Mak MD [address] [place] [address] Internal Medicine-Gastroenterology 07/14/13 Michaela Palacio MD [address] [place] [address] Internal Medicine-Rheumatology 02/20/23 documented as of this encounter
--- OUTSIDE RECORDS SUMMARY | 2025-06-14 12:38 | XMS_ITS | Encounter Summary ---
Author Organization [place] [address] Care Team Providers Care Sign Designer Name Role Phone Benita Infante Primary Care Provider [phone] Dennis Mak MD Unavailable [phone] Michaela Palacio MD Unavailable [phone] Encounter Details Date Type Department Care Team (Late st Contact Info) Description 04/04/2025 Results Follow-Up [facility] [place] [address] [place] [address] Tim Mcgee MD [address] [place] [address] XR FOOT RIGHT AP LATERAL [...] Description 08/05/2025 2:00 PM EDT Office Visit [facility] [address] [place] [address] Michaela Palacio MD [address] [place] [address] documented as of this encounter Visit Diagnoses Not on filedocumented in this encounter Care Teams Sign Designer Relationship Specialty Start Date End Date Benita Infante [address] [place], [place] [address] PCP - General 07/10/10 Dennis Mak MD [address] [place], [place] [address] Internal Medicine-Gastroenterology 07/14/13 Michaela Palacio MD [address] [place] [address] Internal Medicine-Rheumatology 02/20/23 documented as of this encounter
--- OUTSIDE RECORDS SUMMARY | 2025-06-14 12:38 | XMS_ITS | Encounter Summary ---
Author Organization [facility] [address] Care Team Providers Care Wetland Scientist Name Role Phone Benita Infante Primary Care Provider [phone] Dennis Mak MD Unavailable [phone] Michaela Palacio MD Unavailable [phone] Encounter Details Date Type Department Care Team (Late st Contact Info) Description 04/06/2025 Treatment [facility] [address] [address] Elizabeth Franklin MA Social History [...] Description 08/05/2025 2:00 PM EDT Office Visit [facility] [address] [place] [address] Michaela Palacio MD [address] [place] [address] documented as of this encounter Visit Diagnoses Not on filedocumented in this encounter Care Teams Wetland Scientist Relationship Specialty Start Date End Date Benita Infante [address] [place] [address] PCP - General 07/10/10 Dennis Mak MD [address] [place] [address] Internal Medicine-Gastroenterology 07/14/13 Michaela Palacio MD [address] [place] [address] Internal Medicine-Rheumatology 02/20/23 documented as of this encounter
--- OUTSIDE RECORDS SUMMARY | 2025-06-14 12:38 | XMS_ITS | Encounter Summary ---
Author Organization [facility] Address [address] [place] [address] Care Team Providers Care Automobile Upholsterer Name Role Phone Benita Infante Primary Care Provider [phone] Dennis Mak MD Unavailable [phone] Michaela Palacio MD Unavailable [phone] Encounter Details Date Type Department Care Team (Latest Contact Info) Description 02/21/2025 Results Follow-Up [facility] [address] [place] [address] Michaela Palacio MD [address] [place] [address] CBC WITH DIFF, SEDIMENTATION RATE [...] Description 08/05/2025 2:00 PM EDT Office Visit [facility] [address] [place] [address] Michaela Palacio MD [address] [place] [address] documented as of this encounter Visit Diagnoses Not on filedocumented in this encounter Care Teams Automobile Upholsterer Relationship Specialty Start Date End Date Benita Infante [address] [place], [place] [address] PCP - General 07/10/10 Dennis Mak MD [address] [place], [place] [address] Internal Medicine-Gastroenterology 07/14/13 Michaela Palacio MD [address] [place] [address] Internal Medicine-Rheumatology 02/20/23 documented as of this encounter
--- OUTSIDE RECORDS SUMMARY | 2025-06-14 12:38 | XMS_ITS | Encounter Summary ---
Author Organization [facility] [place] [place] [address] Care Team Providers Care Telehealth Case Manager Name Role Phone Benita Infante Primary Care Provider [phone] Dennis Mak MD Unavailable [phone] Michaela Palacio MD Unavailable [phone] Encounter Details Date Type Department Care Team (Late st Contact Info) Description 04/15/2020 Orders Only [facility] [address] [facility] [address] [place] [address] Dennis Mak MD [address] [facility] [place] [address] Social History Tobacco Use Types [...] [facility] [address] [place] [address] Michaela Palacio MD [address] [place] [address] documented as of this encounter Procedures Procedure Name Priority Date/Time Associated Diagnosis Comments [facility] EGD-COLONOSCOPY Routine 04/15/2020 10:20 AM EDT documented in this encounter Results * [facility] EGD-COLONOSCOPY (04/15/2020 10:20 AM EDT) 04/15/2020 10:2 0 AM EDT Impressions [facility] - 04/15/2020 11:24 AM EDT Plan: CT scan chest/abdomen/pelvis with contrast Colonoscopy in 1 year. This section is an excerpt of the full report. us Dennis Mak MD GI PROCEDURE ORDERABLES Fin al Result [facility] [address] [place] [address] documented in this encounter Visit Diagnoses Not on filedocumented in this encounter Care Teams Telehealth Case Manager Relationship Specialty Start Date End Date Benita Infante [address] [place] [address] [address] [place] [address] PCP - General 07/10/10 Dennis Mak MD [address] [place] [address] [address] [place], [place] [address] Internal Medicine-Gastroenterology 07/14/13 [place] [address] [place] [id number] Internal Medicine-Rheumatology 02/20/23 documented as of this encounter
--- OUTSIDE RECORDS SUMMARY | 2025-06-14 12:38 | XMS_ITS | Encounter Summary ---
Author Organization [place] [address] Care Team Providers Care Physician Obstetrician Name Role Phone Benita Infante Primary Care Provider [phone] Dennis Mak MD Unavailable [phone] Michaela Palacio MD Unavailable [phone] Encounter Details Date Type Department Care Team (Late st Contact Info) Description 04/15/[address] [facility] [place] [address] Dennis Mak MD [address] [place] [address] Iron deficiency anemia, unspecified; Diaphragmatic [...] Date Author No 05/20/2019 10:02 AM Macie gA RN documented in this encounter Plan of Treatment Upcoming Encounters Date Type Department Care Team (Late st Contact Info) Description 08/05/2025 2:00 PM EDT Office Visit [facility]ly [facility] [address] [place] [address] Michaela Palacio MD [address] [place] [address] documented as of this encounter [...] AM EDT) CASE REPORT Surgical Pathology Case: [id number] Authorizing Provider: Dennis Mak MD Collected: 04/15/2020 1020 Ordering Location: ED LABORATORY Received: 04/15/2020 3525 Pathologist: Dontae Scott MD Specimens: A) - Small Intestine, Duodenum B) - Large Intestine, Left/Descending Colon C) - Large Intestine, Rectum D) - Large Intestine, Rectum 04/19/2020 8:33 AM EDT [facility] CLINICAL HISTORY Iron deficiency anemia. A 3 cm mass in the rectosigmoid junction and a 1 cm polyp in the rectum. 04/19/2020 8:33 AM EDT [facility] FINAL DIAGNOSIS A) Duodenum, distal, [...] with endoscopy findings. 04/19/2020 8:33 AM EDT [facility] at 0833 EDT COMMENT Parts C and D were reviewed by additional departmental pathologist with diagnostic agreement.EK Dr. Dennis Mak was notified of this result via [employer] text message on 04/19/2020 at 8:32 am. 04/19/2020 8:33 AM EDT [facility] GROSS DESCRIPTION Part A) Received [...] one cassette. /ZN 04/19/2020 8:33 AM EDT [facility] MICROSCOPIC DESCRIPTION Microscopic examination is performed and the findings corroborate the diagnosis. 04/19/2020 8:33 AM EDT [facility] FLOW CYTOMETRY SUMMARY 04/19/2020 8:33 AM EDT [facility] SPECIAL STAINS 04/19/2020 8:33 AM EDT [facility] EMBEDDED IMAGES 04/19/2020 8:33 AM EDT [facility] Tissue DUODENAL STRUCTURE / Unknown 04/15/2020 10:20 [...] Dennis Mak MD PATHOLOGY ORDERABLES Final Result [facility] [address] [address] [place] [address] documented in this encounter Visit Diagnoses Diagnosis Iron deficiency anemia, unspecified Diaphragmatic hernia without obstruction or gangrene Diaphragmatic hernia without mention of obstruction or gangrene Diverticulosis of large intestine without perforation or abscess without bleeding Diverticulosis of colon (without mention of hemorrhage) Polyp of colon Benign neoplasm of colon documented in this encounter Care Teams Physician Obstetrician Relationship Specialty Start Date End Date Benita Infante [address] [place] [address] PCP - General 07/10/10 Dennis Mak MD [address] [place] [id number] [place] [address] Internal Medicine-Gastroenterology 07/14/13 Michaela Palacio MD [address] [place] [address] Internal Medicine-Rheumatology 02/20/23 documented as of this encounter
--- OUTSIDE RECORDS SUMMARY | 2025-06-14 12:39 | XMS_ITS | Encounter Summary ---
Author Organization [place] [address] Care Team Providers Care Food And Nutrition Professor Name Role Phone Benita Infante Primary Care Provider [phone] Dennis Mak MD Unavailable [phone] Michaela Palacio MD Unavailable [phone] Encounter Details Date Type Department Care Team (Late st Contact Info) Description 08/12/2013 Orders Only SEP Gastro CV [address] [facility] [address] [place] [address] Dennis Mak MD [address] [facility] [address] Social History Tobacco Use Types [...] Visit [facility] [address] [place] [address] Michaela Palacio MD [address] [place] [address] documented as of this encounter Procedures Procedure Name Priority Date/Time Associated Diagnosis Comments [facility] COLONOSCOPY Routine 08/12/2013 12:0 0 AM EDT documented in this encounter Results * [facility] COLONOSCOPY (08/12/2013 12:00 AM EDT) 08/12/2013 Impressions [facility] - 08/12/2013 7:44 AM EDT Polyps [...] ORDERABLES Fin al Result Performing Organization Address City/State/[facility] Co de Phone Number [facility] [address] [place] [address] documented in this encounter Visit Diagnoses Not on filedocumented in this encounter Care Teams Food And Nutrition Professor Relationship Specialty Start Date End Date Benita Infante [address] [place] [address] [address] [place] [address] PCP - General 07/10/10 Dennis Mak MD [address] [place] [address] [address] [place] [address] Internal Medicine-Gastroenterology 07/14/13 Michaela Palacio MD [address] [place] [address] Internal Medicine-Rheumatology 02/20/23 documented as of this encounter
--- OUTSIDE RECORDS SUMMARY | 2025-06-14 12:39 | XMS_ITS | Encounter Summary ---
Author Organization [place] [place] [address] Care Team Providers Care Plant Reliability Engineer Name Role Phone Benita Infante Primary Care Provider [phone] Dennis Mak MD Unavailable [phone] Michaela Palacio MD Unavailable [phone] Encounter Details Date Type Department Care Team (Late st Contact Info) Description 08/12/2013 Orders Only SEP Gastro CV [address] [facility] [address] [place] [address] Dennis Mak MD [address] [facility] [place] [address] Social History Tobacco Use Types [...] Visit [facility] [address] [place] [address] Michaela Palacio MD [address] [place] [address] documented as of this encounter Procedures Procedure Name Priority Date/Time Associated Diagnosis Comments [facility]ED EGD Routine 08/12/2013 7:30 AM EDT documented in this encounter Results * [facility] EGD (08/12/2013 7:30 AM EDT) 08/12/2013 7:30 AM EDT Impressions [facility] - 08/12/2013 7:47 AM EDT Normal stomach. Normal duodenum. Normal mucosa in the whole esophagus. (Dilation). Plan: Follow-up as needed This section is an excerpt of the full report, which can be found by clicking the hyperlink. us Dennis Mak MD GI PROCEDURE ORDERABLES Fin al Result Performing Organization Address City/State/[facility] Co de Phone Number [facility] [address] [place] [address] documented in this encounter Visit Diagnoses Not on filedocumented in this encounter Care Teams Plant Reliability Engineer Relationship Specialty Start Date End Date Benita Infante [address] [facility] [address] PCP - General 07/10/10 Dennis Mak MD [address] [place] [address] Internal Medicine-Gastroenterology 07/14/13 Michaela Palacio MD [address] [place] [address] Internal Medicine-Rheumatology 02/20/23 documented as of this encounter
--- OUTSIDE RECORDS SUMMARY | 2025-06-14 12:39 | XMS_ITS | Encounter Summary ---
Author Organization [facility] [place] [address] Care Team Providers Care Biofuels Plant Manager Name Role Phone Benita Infante Primary Care Provider [phone] Dennis Mak MD Unavailable [phone] Michaela Palacio MD Unavailable [phone] Encounter Details Date Type Department Care Team (Late st Contact Info) Description 08/14/2021 Orders Only SEP Gastro CVH [address] [facility] [address] [place] [address] Dennis Mak MD [address] [facility] [place] [address] Social History Tobacco Use Types [...] Office Visit [facility] [address] [place] [address] Michaela Palacio MD [address] [place] [address] documented as of this encounter Procedures Procedure Name Priority Date/Time Associated Diagnosis Comments GMED COLONOSCOPY Routine 08/14/2021 11:0 0 AM EDT documented in this encounter Results * [facility]ED COLONOSCOPY (08/14/2021 11:00 AM EDT) 08/14/2021 11:0 0 AM EDT Impressions [facility] - 08/14/2021 10:57 AM EDT Polyps (3 mm to 4 mm) in the descending colon. (Polypectomy). Previous Surgery in the colon. Plan: Colonoscopy in 3 years. This section is an excerpt of the full report. us Dennis Mak MD GI PROCEDURE ORDERABLES Fin al Result [facility] [address] [place] [address] documented in this encounter Visit Diagnoses Not on filedocumented in this encounter Care Teams Biofuels Plant Manager Relationship Specialty Start Date End Date Benita Infante [address] [place] [address] [address] [place] [address] PCP - General 07/10/10 Dennis Mak MD [address] [place] [address] [address] [place] [address] Internal Medicine-Gastroenterology 07/14/13 [place] [address] [place] [id number] Internal Medicine-Rheumatology 02/20/23 documented as of this encounter
--- OUTSIDE RECORDS SUMMARY | 2025-06-14 12:39 | XMS_ITS | Continuity of Care Document ---
Author Organization [facility] Address 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 Name Role Phone Benita Infante Primary Care Provider Dennis Mak MD Unavailable [phone] Michaela Palacio MD Unavailable [phone] Encounters Date Type Department Care Team Description 04/06/2025 Orders Only [facility] [address] [address] Lidia Emanuel MA 04/06/2025 Orders Only [facility] [address] [address] Con Farris DO 04/06/2025 Telephone [facility] [address] [address] Elizabeth Franklin MA Medication Management 04/06/2025 Treatment [facility] [address] [address] Elizabeth Franklin MA 04/05/2025 Telephone [facility] [address] [address] [address] [place] [address] Catina Acosta NievesSTEVE dodson Results 04/04/2025 Results Follow-Up [place] [address] [place] [address] Tim Mcgee MD XR FOOT RIGHT AP LATERAL AND OBLIQUE 04/04/2025 5:15 PM EDT - 04/04/2025 11:59 PM EDT Hospital Encounter [facility] [address] [place] [address] Acute right ankle pain; Foot pain, right Discharge Disposition: Home or Self Care 04/04/2025 4:15 PM EDT Office Visit [place] [address] [place] [address] Tim Mcgee MD Acute right ankle pain (Primary Dx); Foot pain, right; Acute non-recurrent maxillary sinusitis 03/09/2025 Telephone [facility] [address] [place] [address] Michaela Palacio MD Medication Management (Xeljanz) 02/21/2025 Results Follow-Up [facility] [address] [place] [address] Michaela Palacio MD CBC WITH DIFF, SEDIMENTATION RATE AUTOMATED, C-REACTIVE PROTEIN, Additional followed-up results: 3 02/19/2025 11:40 AM EDT - 02/19/2025 11:59 PM EDT Hospital Encounter [facility] [address] [place] [address] Rheumatoid arthritis of multiple sites 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 (HCC); Drug therapy Discharge Disposition: Home or Self Care 02/08/2025 Refill [facility] [address] [place] [address] Michaela Palacio MD Medication Refill 02/04/2025 Telephone [facility] [address] [place] [address] Michaela Palacio MD Medication Management (Xeljanz) 02/04/2025 2:00 PM EDT Office Visit [facility] [address] [place] [address] Michaela Palacio MD Rheumatoid arthritis of multiple sites 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 (HCC) (Primary Dx); Drug therapy; Primary generalized (osteo)arthritis; Fibromyalgia 01/26/2025 Refill [facility] [address] [place] [address] Michaela Palacio MD Medication Refill 01/18/2025 Telephone [facility] [address] [place] [address] Michaela Palacio MD Medication Management (Xeljanz) 12/31/2024 Refill [facility] [address] [place] [address] Michaela Palacio MD Medication Refill 09/18/2024 Refill [facility] [address] [place] [address] Michaela Palacio MD Medication Refill 09/03/2024 Refill [facility] [address] [place] [address] Michaela Palacio MD Medication Refill 08/10/2024 2:00 PM EDT Office Visit [facility] [address] [place] [address] Michaela Palacio MD Rheumatoid arthritis of multiple sites 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 (HCC) (Primary Dx); Drug therapy; Primary generalized (osteo)arthritis; Fibromyalgia 07/01/2024 Refill [facility] [address] [place] [address] Michaela Palacio MD Medication Refill 06/17/2024 Refill [facility] [address] [place] [address] Michaela Palacio MD Medication Refill 04/16/2024 Refill [facility] [address] [place] [address] Michaela Palacio MD Medication Refill 04/10/2024 Telephone [facility] ED [address] [facility] [place] [address] Lisa Mora, [facility] Results (/) 04/02/2024 1:09 PM EDT - 04/02/2024 11:59 PM EDT Hospital Encounter [facility] CT [address] [facility] [place] [address] Rashad Timmons PA-C Lung nodule Discharge Disposition: Home or Self Care 02/01/2024 Refill [facility] [address] [place] [address] Michaela Palacio MD Medication Refill 01/03/2024 Orders Only [facility] [address] [facility] [place] [address] Rashad Timmons PA-C Lung nodule (Primary Dx) 01/02/2024 2:00 PM EST Office Visit [facility] [address] [place] [address] Michaela Palacio MD Rheumatoid arthritis of multiple sites 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 (HCC) (Primary Dx); Drug therapy; Primary generalized (osteo)arthritis; Fibromyalgia 12/27/2023 2:01 PM EST - 12/27/2023 11:59 PM EST Hospital Encounter [facility] [place] [address] Rashad Timmons PA-C Personal history of colon cancer Discharge Disposition: Home or Self Care 12/19/2023 Telephone [facility] [address] [place] [address] Michaela Palacio MD Medication Management 12/12/2023 Orders Only [facility] [address] [place] [address] Michaela Palacio MD Rheumatoid arthritis of multiple sites 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 (HCC) (Primary Dx); Drug therapy 12/12/2023 Telephone [facility] [address] [place] [address] Michaela Palacio MD Medication Management 12/05/2023 Orders Only [facility] [address] [place] [address] Michaela Palacio MD 12/05/2023 Telephone [facility] [address] [place] [address] Michaela Palacio MD Medication Management 11/25/2023 Telephone [facility] [address] [place] [address] Jose Guardado, DPM Other (Lapiplasty procedure/) 11/19/2023 Refill [facility] [address] [place] [address] Daily Bravo MA Medication Refill 09/09/2023 Refill [facility] [address] [place] [address] Chio Meraz MA Medication Refill 09/04/2023 Telephone [facility] [address] [place] [address] Michaela Palacio MD Medication Refill 09/03/2023 Refill [facility] [address] [place] [address] Michaela Palacio MD Medication Refill 09/03/2023 9:54 AM EDT - 09/03/2023 11:59 PM EDT Hospital Encounter [facility] [address] Rashad Timmons PA-C Personal history of colon cancer (Primary Dx); Urinary frequency Discharge Disposition: Home or Self Care 08/02/2023 2:53 PM EDT Anesthesia Event [facility] [place] [address] Reza Sky, [place] Joseph, MORGAN 08/02/2023 Travel 08/02/2023 10:57 AM EDT - 08/02/2023 4:58 PM EDT Emergency [facility] [address] [place] [address] Rip Meyer MD Food impaction of esophagus, initial encounter (Primary Dx) 08/02/2023 Telephone [facility] [address] [place] [address] Dennis Mak MD Dysphagia 06/27/2023 2:40 PM EDT Office Visit [facility] [address] [place] [address] Michaela Palacio MD Rheumatoid arthritis of multiple sites 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 (HCC) (Primary Dx); Primary generalized (osteo)arthritis; Fibromyalgia; Drug therapy 06/12/2023 Refill [facility] [address] [place] [address] Chio Meraz MA Medication Refill 05/16/2023 Travel 05/16/2023 1:48 PM EDT - 05/16/2023 11:59 PM EDT Hospital Encounter [facility] [id number] Benita Infante Visit for screening mammogram Discharge Disposition: Home or Self Care 02/21/2023 2:40 PM EDT Office Visit [facility] [address] [place] [address] Michaela Palacio MD Rheumatoid arthritis of multiple sites 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 (HCC) (Primary Dx); Primary generalized (osteo)arthritis; Fibromyalgia 01/29/2023 10:00 AM EDT Office Visit [facility] [address] [facility] [place] [address] Rashad Timmons PA-C History of cancer of rectosigmoid junction (Primary Dx) 12/25/2022 Travel 12/25/2022 4:18 PM EST - 12/25/2022 11:59 PM EST Hospital Encounter [address] [address] Rashad Timmons PA-C Lung nodule Discharge Disposition: Home or Self Care 12/20/2022 Abstract [facility] [address] [place] [address] Michaela Palacio MD 12/20/2022 Orders Only [facility] [address] [place] [address] Michaela Palacio MD 12/10/2022 Orders Only [facility] [address] [place] [address] Michaela Palacio MD 09/10/2022 Travel 09/10/2022 2:36 PM EDT - 09/10/2022 11:59 PM EDT Hospital Encounter [facility] [address] [place] [id number] Personal history of colon cancer Discharge Disposition: Home or Self Care 09/09/2022 Orders Only [facility] [address] [facility] [address] [place] [address] Rashad Timmons PA-C Lung nodule (Primary Dx) 08/21/2022 10:15 AM EDT Office Visit [facility] [address] [facility] [address] [place] [address] Rashad Timmons PA-C Personal history of colon cancer (Primary Dx); Abnormal CT scan, lung 08/10/2022 Telephone [facility] ATTN: Appointments in this department are performed at various locations in the community on our Cardiovascular mobile health unit. You can look online to verify your site or [phone] [address] Cherrie Begum, LIBRA Results 07/26/2022 Travel 07/26/2022 10:08 AM EDT - 07/26/2022 11:59 PM EDT [facility] [address] [place] [address] Rashad Timmons PA-C History of cancer of rectosigmoid junction Discharge Disposition: Home or Self Care 06/22/2022 Telephone [facility] [address] [facility] [address] [place] [address] Colon Brianna Mar RMA Appointment Needed 03/05/2022 Travel 03/05/2022 10:14 AM EDT - 03/05/2022 11:59 PM EDT Hospital Encounter [facility] Mammography [address] [place] [address] Benita Infante Encounter for screening mammogram for malignant neoplasm of breast Discharge Disposition: Home or Self Care 12/21/2021 Travel 12/21/2021 10:35 AM EST - 12/21/2021 11:59 PM EST Hospital Encounter [facility] [place] [address] Personal history of malignant neoplasm of rectum, rectosigmoid junction, and anus Discharge Disposition: Home or Self Care 12/11/2021 3:45 PM EST Office Visit [facility] [address] [place] [address] [place] [address] Rashad Timmons PA-C History of cancer of rectosigmoid junction (Primary Dx) 08/17/2021 Travel 08/17/2021 11:41 AM EDT - 08/17/2021 11:59 PM EDT Hospital Encounter [facility] [address] [place] [address] Judy Gallego APRN Varicose veins of right lower extremity with edema Discharge Disposition: Home or Self Care 08/14/2021 Lab Requisition [facility] [place] [address] Dennis Mak MD Personal history of other malignant neoplasm of large intestine; Polyp of colon 08/14/2021 Orders Only [facility] [address] [facility] [address] [place] [address] Dennis Mak MD 08/11/2021 Travel 08/11/2021 1:35 PM EDT - 08/11/2021 11:59 PM EDT Hospital Encounter [facility] [address] [place] [address] Encounter for screening for COVID-19 Discharge Disposition: Home or Self Care 07/13/2021 1:49 PM EDT - 07/13/2021 11:59 PM EDT Hospital Encounter [facility] [place] [address] [facility] [address] [place] [address] History of colon cancer Discharge Disposition: Home or Self Care 07/13/2021 Travel 07/13/2021 12:30 PM EDT Office Visit [facility] [address] [place] [address] Dennis Mak MD History of colon cancer (Primary Dx) 05/05/2021 Travel 05/05/2021 3:45 PM EDT - 05/05/2021 11:59 PM EDT Hospital Encounter [facility] [address] [address] Left hand pain Discharge Disposition: Home or Self Care 05/03/2021 Travel 05/03/2021 2:00 PM EDT Office Visit [facility] [address] [facility] [address] [place] [address] Rashad Timmons PA-C Personal history of malignant neoplasm of rectum, rectosigmoid junction, and anus (Primary Dx) 04/27/2021 Telephone [facility] [address] [place] [address] Gonzalez Vargas MD Other 04/26/2021 Travel 04/26/2021 1:34 PM EDT - 04/26/2021 11:59 PM EDT Hospital Encounter [facility] [place] [address] Rashad Timmons PA-C Personal history of malignant neoplasm of rectum, rectosigmoid junction, and anus Discharge Disposition: Home or Self Care 04/12/2021 Telephone [facility] [address] [place] [address] Dennis Mak MD Colonoscopy 02/09/2021 Travel 02/09/2021 10:55 AM EDT - 02/09/2021 11:59 PM EDT Hospital Encounter [facility] [address] [place] [id number] Cristi Sosa MD Breast asymmetry Discharge Disposition: Home or Self Care 02/06/2021 Travel 10/07/2020 Travel 10/04/2020 Telephone [facility] [address] [place] [address] Lucila Rodgers RMA Orders 09/28/2020 3:04 PM EST - 09/28/2020 11:59 PM EST Hospital Encounter [facility] [address] [place] [address] Personal history of malignant neoplasm of rectum, rectosigmoid junction, and anus Discharge Disposition: Home or Self Care 09/28/2020 Travel 09/28/2020 1:40 PM EST Office Visit [facility] [address] [facility] [address] [place] [phone] Rashad Timmons PA-C Personal history of malignant neoplasm of rectum, rectosigmoid junction, and anus (Primary Dx) 09/26/2020 Travel 08/10/2020 Travel 08/02/2020 Travel 08/02/2020 1:50 PM EDT Office Visit [facility] NPTFTT [address] [place] [address] Cristi Sosa MD Chronic RLQ pain (Primary Dx); Rectosigmoid cancer (HCC) 07/28/2020 10:07 AM EDT - 07/28/2020 11:59 PM EDT Hospital Encounter [facility] [place] [place] [address] Right lower quadrant abdominal pain; Urinary frequency Discharge Disposition: Home or Self Care 07/28/2020 Travel 07/25/2020 Travel 07/22/2020 Travel 07/22/2020 2:00 PM EDT Office Visit [facility] [address] [facility] [address] [place] [address] Rashad Timmons PA-C Right lower quadrant abdominal pain (Primary Dx); Follow-up examination following surgery; Urinary frequency; History of uterine prolapse 07/14/2020 Telephone [facility] [address] [facility] [address] [place] [address] Gonzalez Vargas MD Advice Only 06/22/2020 Telephone Adult Med [address] [facility] [address] [place] [address] Rashad Timmons PA-C Results 06/21/2020 10:20 AM EDT - 06/21/2020 11:59 PM EDT Hospital Encounter [facility] [address] [place] [address] Postop check Discharge Disposition: Home or Self Care 06/21/2020 Travel 06/21/2020 9:20 AM EDT Office Visit [facility] [address] [facility] [address] [place] [address] Gonzalez Vargas MD Postop check (Primary Dx); Rectosigmoid cancer (HCC) 06/02/2020 5:29 AM EDT - 06/04/2020 6:25 PM EDT Hospital Encounter [facility] [address] [place] [address] [place] [address] Gonzalez Vargas MD Rectosigmoid cancer (HCC); Liver lesion; Rectosigmoid cancer (HCC); Liver lesion Discharge Disposition: Home or Self Care 06/02/2020 Orders Only [facility] [place] [address] Manuel Brito MD 06/02/2020 7:30 AM EDT - 06/02/2020 2:25 PM EDT [facility] [place] [address] Gonzalez Vargas MD [facility] ROBOTIC LAPAROSCOPY LOW ANTERIOR COLON RESECTION 06/02/2020 7:36 AM EDT Anesthesia Event [facility] [place] [address] Warren Hernandez MD Powell, Jeanne, PORTABLE TRACK LINE MARKER 06/01/2020 Telephone [facility] [address] [facility] [address] [place] [address] Nelia Harding RMA Prior Authorization; Surgery 05/31/2020 Travel 05/31/2020 9:00 AM EDT Office Visit [facility] [address] [facility] [address] [place] [address] Gonzalez Vargas MD Rectosigmoid cancer (HCC) (Primary Dx) 05/29/2020 Travel 05/29/2020 1:15 PM EDT - 05/29/2020 11:59 PM EDT Hospital Encounter [facility] CLAUDIA [address] [place] [address] Covid19, [facility] P[facility] Ds Pre-op testing; Encounter for laboratory testing for COVID-19 virus Discharge Disposition: Home or Self Care 05/20/2020 12:05 PM EDT - 05/20/2020 11:59 PM EDT Hospital Encounter [facility] [place] [address] Gaby Garcia APRN Discharge Disposition: Home or Self Care 05/20/2020 Travel 05/20/2020 10:45 AM EDT - 05/20/2020 12:04 PM EDT Hospital Encounter [facility] PRE-ADMIT [place] [address] Preop testing (Primary Dx); Rectosigmoid cancer (HCC) Discharge Disposition: Home or Self Care 05/16/2020 Telephone [facility] [address] [facility] [address] [place] [address] Dennis Mak MD Other 05/13/2020 Travel 05/12/2020 Telephone [facility] 271 20 [facility] [address] [place] [address] Mari Hyatt MA Surgery 05/10/2020 Orders Only [facility] [address] [facility] [address] [place] [address] Nelia Harding [facility] Rectosigmoid cancer (HCC) (Primary Dx); Liver lesion 05/09/2020 Telephone [facility] [address] [facility] [address] [place] [address] Marion Curtis, A Surgery 05/06/2020 Travel 05/06/2020 11:58 AM EDT - 05/06/2020 11:59 PM EDT Hospital Encounter [facility] [place] [address] Discharge Disposition: Home or Self Care 05/05/2020 Travel 04/28/2020 Travel 04/28/2020 8:15 AM EDT - 04/28/2020 11:59 PM EDT Hospital Encounter [facility] [place] [address] Rashad Timmons PA-C Rectosigmoid cancer (HCC) Discharge Disposition: Home or Self Care 04/28/2020 8:14 AM EDT Hospital Encounter [facility]G PET CT [address] [facility] [address] [place] [address] Rashad Timmons PA-C Rectosigmoid cancer (HCC) Discharge Disposition: Home or Self Care 04/27/2020 Telephone Adult Med [address] [facility] [address] [place] [address] Rashad Timmons PA-C Follow-up 04/27/2020 Travel 04/26/2020 Travel 04/26/2020 3:40 PM EDT Office Visit [facility] [address] [facility] [address] [place] [address] Gonzalez Vargas MD Rectosigmoid cancer (HCC) (Primary Dx); Liver lesion 04/20/2020 Travel 04/20/2020 10:33 AM EDT - 04/20/2020 11:59 PM EDT Hospital Encounter [facility] [address] [place] [address] Dennis Mak MD Polyp of colon, unspecified part of colon, unspecified type Discharge Disposition: Home or Self Care 04/19/2020 Travel 04/15/2020 Telephone [facility] [address] [facility] [address] [place] [address] Dennis Mak MD Other 04/15/2020 Lab Requisition [facility] [address] [facility] [place] [address] Dennis Mak MD Iron deficiency anemia, unspecified; Diaphragmatic hernia without obstruction or gangrene; Diverticulosis of large intestine without perforation or abscess without bleeding; Polyp of colon 04/15/2020 Orders Only [facility] [address] [facility] [address] [place] [address] Dennis Mak MD 04/15/2020 Travel 04/12/2020 Travel 04/12/2020 11:40 AM EDT Clinical Support [facility] [address] [facility] [address] [place] [address] Lab, [facility] Cv Encounter for laboratory testing for COVID-19 virus (Primary Dx) 04/11/2020 Telephone [facility] [address] [place] [address] Dennis Mak MD COVID-19 Rapid Testing 04/08/2020 Travel 02/09/2020 Travel 02/04/2020 Telephone [facility] [address] [place] [address] Dennis Mak MD Reschedule (d/t covid 19) 12/21/2019 Telephone [facility] [address] [facility] [address] [place] [address] Dennis Mak MD Other 12/02/2019 11:16 AM EST - 12/02/2019 11:59 PM EST Hospital Encounter [facility] [address] [place] [id number] Ming Santamaria MD Right shoulder pain, unspecified chronicity Discharge Disposition: Home or Self Care 12/02/2019 11:16 AM EST - 12/02/2019 11:59 PM EST Hospital Encounter [facility] [address] [place] [address] Ming Santamaria MD Left shoulder pain, unspecified chronicity Discharge Disposition: Home or Self Care 12/02/2019 11:15 AM EST Hospital Encounter [facility] [address] [place] [address] Ming Santamaria MD Left knee pain, unspecified chronicity Discharge Disposition: Home or Self Care 11/09/2019 Telephone [facility] [address] [facility] [address] [place] [address] Dennis Mak MD Cancellation 09/28/2019 3:30 PM EST - 09/28/2019 11:59 PM EST Hospital Encounter [facility] [address], [facility] Iron deficiency anemia, unspecified iron deficiency anemia type Discharge Disposition: Home or Self Care 09/28/2019 2:15 PM EST Office Visit [facility] [address] [facility] [address] [place] [address] Dennis Mak MD Iron deficiency anemia, unspecified iron deficiency anemia type (Primary Dx) 09/22/2019 Telephone [facility] [place] [address] [address] [place] [address] Sydney Connell Scribe Other (Surgery ) 09/22/2019 Telephone [facility] [address] [place] [address] Jasmyne Chapman, ABR-OE Other (powerstep issue) 09/11/2019 12:30 PM EDT - 09/11/2019 11:59 PM EDT Hospital Encounter [facility] [address] [facility] [address] [place], [place] [id number] Cristi Sosa MD Breast mass, right Discharge Disposition: Home or Self Care 09/07/2019 Telephone [facility] NPTT [address] [place] [address] Cristi Sosa MD Other (testing) 09/04/2019 1:00 PM EDT - 09/04/2019 11:59 PM EDT Hospital Encounter [facility] [address] [place] [id number] Cristi Sosa MD Breast mass, right Discharge Disposition: Home or Self Care 09/03/2019 Orders Only [facility] NPTFTT [address] [place] [address] Jeanne Khan RN Breast mass, right (Primary Dx) 09/03/2019 Orders Only [facility] [address] [place] [address] Jose Guardado, MAGUE Hallux valgus of left foot (Primary Dx); Hammer toe of left foot; Exostosis; Rheumatoid arthritis, involving unspecified site, unspecified rheumatoid factor presence (HCC) 09/03/2019 9:40 AM EDT Office Visit [facility] NPTT [address] [place] [address] Cristi Sosa MD Well woman exam (Primary Dx); Encounter for screening mammogram for breast cancer; Encounter for screening colonoscopy; Breast mass, right; FHx: BRCA gene positive 08/28/2019 2:20 PM EDT Ancillary Procedure [facility] Podiatry [address] [place] [address] Jose Guardado, DPM Right foot pain Discharge Disposition: Home or Self Care 08/28/2019 1:35 PM EDT Ancillary Procedure [facility] [address]iat[address] [address] Jose Guardado, DPM Left foot pain Discharge Disposition: Home or Self Care 08/28/2019 1:15 PM EDT Office Visit [facility] Podiatry [address] [address] Jose Guardado, DPMacie Left foot pain (Primary Dx); Hallux valgus of left foot; Right foot pain 06/01/2019 Telephone [facility] [place] [address] [place] [address] Vikas Burnham MD Other (Neuropsych testing) 05/19/2019 9:31 AM EDT - 05/20/2019 5:45 PM EDT Hospital Encounter [facility] 7D [place] [place] [address] Prakash Viramontes MD Discharge Disposition: Home or Self Care 05/19/2019 12:30 PM EDT - 05/19/2019 1:45 PM EDT Surgery [place]G [facility] [place] [address] Prakash Viramontes MD TOTAL HIP ARTHROPLASTY/REPLACE MENT-ANTERIOR OR REVISION ANTERIOR (ERICK/LANDY) 05/19/2019 11:52 AM EDT Anesthesia Event EDG [facility] [place] [address] Esther Zarate MD Braxton-Brown, Jennifer, APRN 05/07/2019 12:39 PM EDT - 05/07/2019 11:59 PM EDT Hospital Encounter [facility] E[facility] [place] [place] [address] Luz Elena Bernard APRN Discharge Disposition: Home or Self Care 05/07/2019 11:52 AM EDT - 05/07/2019 12:38 PM EDT Hospital Encounter [facility] LABORATORY [facility] [place] [address] Preop examination (Primary Dx); Post concussion syndrome Discharge Disposition: Home or Self Care 05/07/2019 Travel 05/07/2019 10:30 AM EDT - 05/07/2019 11:51 AM EDT Hospital Encounter EDG PRE-ADMIT TESTING [facility] [place] [address] Encounter for preadmission testing (Primary Dx); Anticoagulation adequate; Preop testing; Primary osteoarthritis of right hip Discharge Disposition: Home or Self Care 05/05/2019 11:00 AM EDT Office Visit [facility] [place] [address] [place] [address] Vikas Burnham MD Post concussion syndrome (Primary Dx) 01/28/2019 12:39 PM EDT - 01/28/2019 11:59 PM EDT Hospital Encounter [facility] [address] [place] [address] Ming Santamaria MD Bilateral hip pain Discharge Disposition: Home or Self Care 10/30/2018 2:13 PM EST - 10/30/2018 11:59 PM EST [facility] [address] [place] [address] Ming Santamaria MD Strain of neck muscle, initial encounter; Strain of thoracic region, initial encounter; Strain of lumbar region, initial encounter Discharge Disposition: Home or Self Care 10/30/2018 2:12 PM EST [facility] [address] [address] Ming Santamaria MD Strain of neck muscle, initial encounter; Strain of thoracic region, initial encounter; Strain of lumbar region, initial encounter Discharge Disposition: Home or Self Care 10/30/2018 2:00 PM EST - 10/30/2018 2:11 PM EST Hospital Encounter [facility] [address] [address] Ming Santamaria MD Strain of neck muscle, initial encounter; Strain of thoracic region, initial encounter; Strain of lumbar region, initial encounter Discharge Disposition: Home or Self Care 09/18/2018 12:36 PM EST - 09/18/2018 11:59 PM EST Hospital Encounter [facility] [place] [address] Ming Santamaria MD Traumatic injury of head, sequela Discharge Disposition: Home or Self Care 09/18/2018 12:07 PM EST - 09/18/2018 12:35 PM EST Hospital Encounter EDG NUC [facility] [place] [address] Ming Santamaria MD Discharge Disposition: Home or Self Care 09/18/2018 11:00 AM EST - 09/18/2018 12:06 PM EST Hospital Encounter EDG [facility] [place] [address] Ming Santamaria MD Low back pain, unspecified back pain laterality, unspecified chronicity, with sciatica presence unspecified Discharge Disposition: Home or Self Care 10/30/2016 10:26 AM EST - 10/30/2016 10:29 AM EST Hospital Encounter EDG D-WING XRAY [facility] [place] [address] Cough Discharge Disposition: Home or Self Care 10/30/2016 10:30 AM EST - 10/30/2016 11:59 PM EST Hospital Encounter EDG PFT LAB [facility] [place] [address] Discharge Disposition: Home or Self Care 06/14/2016 2:59 PM EDT - 06/14/2016 11:59 PM EDT [facility] [address] [address] Benita Infante Cervical radiculopathy Discharge Disposition: Home or Self Care 05/16/2016 2:15 PM EDT - 05/16/2016 3:18 PM EDT Hospital Encounter EDG D-WING XRAY [facility] [place] [address] Neck pain Discharge Disposition: Home or Self Care 05/16/2016 3:19 PM EDT - 05/16/2016 11:59 PM EDT Hospital Encounter [facility] [place] [address] Benita Infante Visit for screening Discharge Disposition: Home or Self Care 10/03/2015 1:03 PM EST - 10/03/2015 2:10 PM EST Emergency [facility] [place] [address] Jeremiah Plaza MD Transient elevated blood pressure (Primary Dx) Discharge Disposition: Home or Self Care 05/12/2015 12:48 PM EDT - 05/12/2015 11:59 PM EDT Hospital Encounter [facility] [place] [address] Benita Infante Other screening mammogram Discharge Disposition: Home or Self Care 03/05/2015 9:00 AM EDT - 03/05/2015 11:59 PM EDT Hospital Encounter EDG HOLTER MONITOR [facility] [place] [address] Benita Infante Heart rate slow Discharge Disposition: Home or Self Care 11/29/2014 9:21 AM EST - 11/29/2014 11:59 PM EST Hospital Encounter [facility] Stress Test [facility] [place] [address] Jose Curtis MD Chest pain Discharge Disposition: Home or Self Care 11/29/2014 9:21 AM EST - 11/29/2014 11:59 PM EST Hospital Encounter EDG NUC MED [facility] [place] [address] Jose Curtis MD Chest pain Discharge Disposition: Home or Self Care 11/26/2014 4:00 PM EST - 11/26/2014 11:59 PM EST Hospital Encounter [facility]ander EKG [facility] [facility] Chest pain, unspecified Discharge Disposition: Home or Self Care 09/13/2014 1:30 PM EST - 09/13/2014 11:59 PM EST Hospital Encounter [facility] VASCULAR LAB [address] [place] [address] Javed Curtis MD Leg edema; Leg pain Discharge Disposition: Home or Self Care 10/29/2013 2:01 PM EST - 10/29/2013 11:59 PM EST Hospital Encounter [facility] M[facility] [facility] Benita Infante Other screening mammogram Discharge Disposition: Home or Self Care 09/02/2013 10:00 AM EDT - 09/02/2013 11:59 PM EDT Hospital Encounter [facility] XRAY [address] [place] [address] Dennis Mak MD Nausea; Sternum pain; Abdominal pain, acute, epigastric Discharge Disposition: Home or Self Care 08/27/2013 Telephone [facility] [address] [address] Dennis Mak MD Other 08/17/2013 8:00 AM EDT - 08/17/2013 9:15 AM EDT Surgery [facility] PERIOP [address] [place] [address] Moustapha Shaffer, DPMacie BUNIONECTOMY/SIMPLE/ SILVER/OFF SET V 08/17/2013 6:59 AM EDT - 08/17/2013 10:10 AM EDT Hospital Encounter [facility] SAME DAY SURGERY [address] [place] [address] Moustapha Shaffer DPM Discharge Disposition: Home or Self Care 08/12/2013 Orders Only [facility] [address] [address] Dennis Mak MD 08/12/2013 Orders Only [facility] [address] [address] Dennis Mak MD 08/12/2013 Orders Only [facility] Gastro CV [address] [facility] [address] [place] [address] Dennis Mak MD 08/11/2013 9:00 AM EDT - 08/11/2013 11:59 PM EDT Hospital Encounter [facility] PRE-ADMIT TESTING [address] [place] [address] Pat, Ftt Discharge Disposition: Home or Self Care 07/14/2013 1:45 PM EDT - 07/14/2013 11:59 PM EDT Hospital Encounter EDG D-WING [place] [address] Bunion Discharge Disposition: Home or Self Care 07/14/2013 3:10 PM EDT Office Visit [facility] CV 651 [facility] [address] [place] [address] Dennis Mak MD Dysphagia (Primary Dx); Family history of colon cancer 07/10/2013 Telephone [facility] Gastro CV 651 [facility] [address] [place] [address] Dennis Mak MD Other (returning call) 07/16/2012 5:42 AM EDT - 07/16/2012 11:59 PM EDT Hospital Encounter Mobile Mammography Other Location View online schedule for mobile van location [phone] Benita Infante Other screening mammogram Discharge Disposition: Home or Self Care 07/03/2012 11:33 AM EDT - 07/03/2012 11:59 PM EDT Hospital Encounter [facility] [address] [place] [address] Harvey Ba, CRYSTAL Pain in joint, other specified sites Discharge Disposition: Home or Self Care 08/02/2010 9:56 AM EDT - 08/02/2010 11:59 PM EDT Hospital Encounter [facility] [place] [address] Benita Infante Other screening mammogram Discharge [...] Encounter [facility] ArelisBenita 02/13/2006 1:13 PM EDT - 02/13/2006 11:59 PM EDT Hospital Encounter [facility] RADIOLOGY EDG Michaela aPlacio MD 08/07/2005 8:54 PM EDT - 08/07/2005 11:59 PM EDT Hospital Encounter [facility] LAB EDG Dennis Mak MD 08/01/2005 12:01 AM EDT - 08/01/2005 11:59 PM EDT Hospital Encounter [facility] EDG rAelisBenita 01/27/2005 11:10 AM EST - 01/27/2005 11:59 [...] 600 mg by mouth daily. Calcium Active Ssc-Cabmpbkraq-U cetaminop-Caf 51-163-83-30 mg Oral Capsule Take by mouth. Ac [...] Active fluticasone propionate (FLONASE) 50 mcg/actuation Nasl Dale, Suspension 1 Dale by Nasal route daily. 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 Overview (05/10/2020): Added automatically from request for surgery [id number] Liver lesion 05/10/2020 Overview (05/10/2020): Added automatically from request for surgery [id number] Hallux valgus of left foot 09/03/2019 Overview (09/03/2019): Added automatically from request for surgery [id number] Hammer toe of left foot 09/03/2019 Overview (09/03/2019): Added automatically from request for surgery [id number] Exostosis 09/03/2019 Overview (09/03/2019): Added automatically from request for surgery [id number] [facility] 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 09/03/2019 Overview (09/03/2019): Added automatically from request for surgery [id number] Osteoarthritis of right hip 05/19/2019 Polypharmacy 05/19/2019 [...] Sister Social History Smoking Status as of 06/14/2025 Tobacco Use Types Packs/Day Years Used Date [...] Visit [facility] [address] [place] [address] Michaela Palacio MD [address] [place] [address] Medical Devices Implanted Type Area Tie In Hand Device Identifier Shelf Expiration Date Model / Serial / Lot Shell Acetabular Trident Ii Tritanium D 50mm Screwhole Clust - [id number] Implanted:Qty: 1 on 05/19/2019 by Prakash Viramontes MD at [facility] Right: Hip ERICK:ORTHOPEDI CS 01/08/2024 [id number] / / [id number] Insert Trident X 3 0 Degree 36mm D - [id number] Implanted:Qty: 1 on 05/19/2019 by Prakash Viramontes MD at [facility] Right: Hip ERICK:ORTHOPEDI CS 03/05/2024 [id number] / / [id number] 6.5mm Low Profile Hex Screw 30mm - [id number] Implanted:Qty: 1 on 05/19/2019 by Prakash Viramontes MD at [facility] Right: Hip ERICK:ORTHOPEDI CS 04/06/2024 [id number] / / [id number] Size 5 Accolade Ii 127 Deg - [id number] Implanted:Qty: 1 on 05/19/2019 by Prakash Viramontes MD at [facility] Right: Hip ERICK:ORTHOPEDI 04/04/2024 [id number] / / [id number] Head Fem -5mm Ofst Tpr 36mm Hip Blx D V40 Strl - [id number] Implanted:Qty: 1 on 05/19/2019 by Prakash Viramontes MD at [facility] Right: Hip ERICK:ORTHOPEDI 06/19/2023 [id number] / / [id number] Procedures Procedure Name Priority Date/Time Associated Diagnosis [...] 09/04/2019 1:32 PM EDT Breast mass, right [employer] MANAGER CYTOLOGY REQUEST (PAP ONLY) Routine 09/03/2019 11:09 AM EDT Well woman exam [facility] 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 Referring [...] particular day. Also takes random dose of cexamhkaub03 mg up to 3 x monthly for [...] LEFT FOOT ; Surgeon: Moustapha Shaffer DPM;Location: [facility] MAIN OR; Service: Orthopedics COLONOSCOPY FOOT SURGERY right bunioun HAND SURGERY right HIP ARTHROPLASTY Right 05/19/2019 right hip total replacement anterior; Surgeon: Prakash Viramontes MD;Location: [facility] MAIN OR; Service: Orthopedics HIP SURGERY left replacement JOINT REPLACEMENT LEFT HIP KNEE SURGERY lt knee arthroscopy TUBAL LIGATION UPPER GASTROINTESTINAL ENDOSCOPY Medications Prior to Admission Medication Sig Dispense Refill Last Dose amLODIPine (NORVASC) 2.5 mg Oral Tablet Take 10 mg by mouth daily.UNSRUE OF DOSAGE 05/18/2019 at 1900 [DISCONTINUED] zcecqvo-ucxkdzgwudnxs-ptuktyrz (EXCEDRIN EXTRA STRENGTH)250-250-65 mg Oral Tablet Take 1 Tab by mouth every 6 hours as needed forPain. Taking at Unknown time B-complex with vitamin C (VITAMIN B COMPLEX-C ORAL) Take by mouth.05/18/2019 at 1900 CANNABIDIOL, CBD, EXTRACT ORAL Take 1,500 mg by mouth. 05/18/2019 [id number] cetirizine (ZYRTEC) 10 mg Oral Tablet Take [...] Take 450 Units by mouth daily. 05/18/2019 [id number] lactobacillus rhamnosus, GG, (CULTURELLE) 10 billion cell [...] valgus (acquired) Special Needs DR SHAFFER CPT; 37559 LEFT FOOT 08/07/13 @ 1020 Left message [...] Routine 11/05/2006 10:00 AM EST FL STOMACH/ESOPHAGUS TOWER HAND Routine 006 8:00 AM EST WW MAMMO [...] 5:43 PM CLINICAL HISTORY: M79.671-Pain in right tsev-LOO-10-CM COMPARISON: None. PROCEDURE COMMENTS: XR FOOT RIGHT AP LATERAL AND OBLIQUE FINDINGS: No definite acute fracture or malalignment. First MTP arthrodesis with screws. Chronic appearing deformity of the third proximal phalanx. Mild soft tissue edema. Procedure Note Jeremiah Welch MD - 04/04/2025 XR FOOT RIGHT AP LATERAL AND OBLIQUE, 04/04/2025 5:43 PM CLINICAL HISTORY: M79.671-Pain in right elvo-THF-37-CM COMPARISON: None. PROCEDURE COMMENTS: XR FOOT RIGHT [...] in right ankle and joints of right atga-JWB-37-CM COMPARISON: None. PROCEDURE COMMENTS: XR ANKLE RIGHT AP LATERAL AND OBLIQUE FINDINGS: No acute fracture or malalignment. Soft tissue swelling around the ankle greatest anteromedially. Procedure Note Jeremiah Welch MD - 04/04/2025 XR ANKLE RIGHT AP LATERAL AND OBLIQUE, 04/04/2025 5:43 PM CLINICAL HISTORY: M25.571-Pain in right ankle and joints of right jmkz-DMD-53-CM COMPARISON: None. PROCEDURE COMMENTS: XR ANKLE RIGHT [...] TB GOLD (02/19/2025 11:47 AM EDT) Pathologist [facility] Quantiferon-TB Gold in Tube Negative Negative 02/20/2025 [...] IU/mL 02/20/2025 11:18 AM EDT [facility] Blood VENOUS BLOOD / Unknown Venipuncture / Unknown 02/19/2025 11:47 AM EDT 02/19/2025 11:47 AM EDT Narrative [facility] - 02/20/2025 11:18 AM EDT Interferon [...] ORDERABLES Final Re sult [facility] [address] , [place] [address] * SEDIMENTATION RATE AUTOMATED (02/19/2025 11:47 AM EDT) Sed Rate 5 0 - 30 mm/hr 02/19/2025 4:06 PM EDT [facility] Blood VENOUS BLOOD / Unknown Venipuncture / Unknown 02/19/2025 11:47 AM EDT 02/19/2025 11:47 AM EDT us Michaela Palacio MD HEMATOLOGY ORDERABLES Final Re sult Performing Organization Address [facility] Co de Phone Number [facility] [address] , [address] [place], [place] [id number] * (ABNORMAL) CBC WITH DIFF (02/19/2025 11:47 [...] 02/19/2025 4:06 PM EDT [facility] Platelet 292 155 - 369 x10(3)/[facility] 02/19/2025 4:06 PM EDT [facility] MPV 10.5 8.8 - 12.5 fL 02/19/2025 4:06 PM EDT [facility] Neut Percent 67.0 % 02/19/2025 4:06 PM EDT [facility] Comment:Neutrophils equals s egs plus bands Imm Gran% 0.4 % 02/19/2025 4:06 PM EDT [facility] Comment:Automated count of m etamyelocytes, myelocytes and promyelocytes. Lymph Percent 24.1 % 02/19/2025 4:06 PM EDT [facility] Blaine Percent 6.7 % 02/19/2025 4:06 PM EDT [facility] Eos Percent 1.3 % 02/19/2025 4:06 PM EDT [facility], [facility] Baso Percent 0.5 % 02/19/2025 4:06 PM EDT [facility] Neut # 3.7 1.6 - 6.1 x10(3)/[facility] 02/19/2025 4:06 PM EDT [facility] Comment:Neutrophils equals s egs plus bands IMMGRAN# 0.0 0.0 - 0.1 x10(3)/[facility] 02/19/2025 4:06 PM EDT [facility] Comment:Automated count of m etamyelocytes, myelocytes and promyelocytes. An absolute IG <0.1 is reported as 0.0. Lymph # 1.3 1.2 - 3.9 x10(3)/[facility] 02/19/2025 4:06 PM EDT [facility] Blaine # 0.4 0.3 - 0.9 x10(3)/[facility] 02/19/2025 4:06 PM EDT [facility] Eos# 0.1 0.0 - 0.5 x10(3)/[facility] 02/19/2025 4:06 PM EDT [facility] Baso # 0.0 0.0 - 0.1 x10(3)/[facility] 02/19/2025 4:06 PM EDT [facility] Blood VENOUS BLOOD / Unknown Venipuncture / Unknown 02/19/2025 11:47 AM EDT 02/19/2025 11:47 AM EDT Result Abdiaziz Palacio MD HEMATOLOGY ORDERABLES Final Re sult Performing Organization Address [facility] Co de Phone Number [facility] [address] , [place] [address] * C-REACTIVE PROTEIN (02/19/2025 11:47 AM EDT) CRP <3.00 <=5.00 mg/L 02/19/2025 8:03 PM EDT [facility] Blood VENOUS BLOOD / Unknown Venipuncture / Unknown 02/19/2025 11:47 AM EDT 02/19/2025 11:47 AM EDT Result Abdiaziz Palacio MD CHEMISTRY ORDERABLES Final Res ult Performing Organization Address [facility] Phone Number [facility] [employer] [address] , [place] [address] * CREATININE (02/19/2025 11:47 AM EDT) Creatinine 0.77 0.51 - 1.30 mg/dL 02/19/2025 8:03 PM EDT [facility] eGFR (CKD-EPIcr 2020) 83 >=60 mL/min/1.7 3 m2 02/19/2025 8:03 PM EDT [facility] Comment:Estimated GFR was ca lculated using the CKD-EPIcr (2020) equation refit without race. The equation is recommended by the National Kidney Foundation - [place] [employer] of Nephrology Task Force. Blood VENOUS BLOOD / Unknown Venipuncture / Unknown 02/19/2025 11:47 AM EDT 02/19/2025 11:47 AM EDT Result Abdiaziz Palacio MD CHEMISTRY ORDERABLES Final Res ult Performing Organization Address [facility] Co de Phone Number [facility], [address] , [place] [address] * HEPATIC FUNCTION PANEL (02/19/2025 11:47 AM EDT) Total Protein 6.7 6.4 - 8.3 gm/dL 02/19/2025 8:03 PM EDT [facility] Albumin 3.8 3.2 - 4.6 gm/dL 02/19/2025 8:03 PM EDT [facility] Bili Direct <0.2 0.0 - 0.3 mg/dL 02/19/2025 8:03 PM EDT [facility] Bili Total 0.3 0.2 - 1.3 mg/dL 02/19/2025 8:03 PM EDT [facility] AST 27 <=40 U/L 02/19/2025 8:03 PM EDT [facility] ALT 16 <=41 U/L 02/19/2025 8:03 PM EDT [facility] Alk Phos 90 36 - 123 U/L 02/19/2025 8:03 PM EDT [facility], [facility] Blood VENOUS BLOOD / Unknown Venipuncture / Unknown 02/19/2025 11:47 AM EDT 02/19/2025 11:47 AM EDT us Michaela Palacio MD CHEMISTRY ORDERABLES Final Res ult [facility], [address] , [place] [address] * CT VILMA LUNG NODULE FOLLOW UP [...] HISTORY: Follow up lung nodule. R91.1-Solitary pulmonary rclgbh-ZDG-19-CM. COMPARISON: 12/27/2023 PROCEDURE COMMENTS: Noncontrast, low-dose, multidetector [...] HISTORY: Follow up lung nodule. R91.1-Solitary pulmonary zctpdd-OUH-16-CM. COMPARISON: 12/27/2023 PROCEDURE COMMENTS: Noncontrast, low-dose, multidetector [...] resultswithin the time period is included. Pathologist [facility] Sed Rate 17 < OR = 30 mm/h [facility] 01/02/2024 2:43 PM EST 01/02/2024 2:43 PM EST Michaela Palacio MD [facility]-HEMATOLOGY ORDERABLES Fi nal Result [facility] [address] [place] [address] * HEPATIC FUNCTION PANEL-[facility] (01/02/2024 2:43 PM EST) Only the most recent of2 resultswithin the time period is included. Protein, Total 7.3 6.1 - 8.1 g/dL [facility] Albumin 4.4 3.6 - 5.1 g/dL [facility] Globulin 2.9 1.9 - 3.7 g/dL (calc) [facility] Albumin/Globuli n Ratio 1.5 1.0 [...] ORDERABLES Fin al Result Performing Organization Address [facility] Co de Phone Number [facility] [address] [place] [address] * CREATININE-[facility] (01/02/2024 2:43 PM EST) Only the most recent of2 resultswithin the time period is included. Creatinine 0.72 0.50 - 1.05 mg/dL [facility] EGFR 91 > OR = 60 mL/min/1.73 m2 [facility] 01/02/2024 2:43 PM EST 01/02/2024 2:43 PM EST Michaela Palacio MD [facility]-CHEMISTRY ORDERABLES Fin al Result Performing Organization Address [facility] Co de Phone Number [facility] [address] [place] [address] * C REACTIVE PROTEIN-[facility] (01/02/2024 2:43 PM EST) Only the most recent of3 resultswithin the time period is included. CRP 1.2 <8.0 mg/L [facility] 01/02/2024 2:43 PM EST 01/02/2024 2:43 PM EST us Michaela Palacio MD [facility]-CHEMISTRY ORDERABLES Fin al Result [facility] [address] [facility] [place] [address] * CBC WITH AUTO DIFF-[facility] (01/02/2024 2:43 PM EST) Only the most recent of3 resultswithin the time period is included. WBC 7.4 3.8 - 10.8 Thousand/u L [employer] RBC 4.27 3.80 - 5.10 Million/uL [facility] [facility] Hemoglobin 13.7 11.7 - 15.5 g/dL [facility] Hematocrit 40.6 35.0 - 45.0 % [facility] [facility] MCV 95.1 80.0 - 100.0 fL [facility] [facility] MCH 32.1 27.0 - 33.0 pg [facility]id[facility] MCHC 33.7 32.0 - 36.0 g/dL [facility] [facility] RDW 12.5 11.0 - 15.0 % [facility] Platelets 338 140 - 400 Thousand/u L [employer] [facility] MPV 10.1 7.5 - 12.5 fL [facility] Neut# 5,002 1,500 - 7,800 cells/uL [facility] Lymph# 1,717 850 - 3,900 cells/uL [facility] [facility] Monocytes(Absol sara) 540 200 - 950 cells/uL [facility] Eos 111 15 - 500 cells/uL [facility] Baso# 30 0 - 200 cells/uL [facility] Neut Percent 67.6 % [facility] Lymph Percent 23.2 % [facility] Monocytes 7.3 % [facility] Eos Percent 1.5 % [facility] Baso Percent 0.4 % [facility] 01/02/2024 2:43 PM EST 01/02/2024 2:43 PM EST Michaela Palacio MD [facility]-HEMATOLOGY ORDERABLES Fi nal Result Performing Organization Address City/[facility]/ZIP Co de Phone Number [facility] [address] [place] [address] * QUANTIFERON(R)-TB GOLD PLUS, 1-QUEST (01/02/2024 2:43 PM EST) Only the most recent of2 resultswithin the time period is included. [facility] QUANTIFERON(R)-T B GOLD PLUS, 1 TUBE NEGATIVE [...] T-lymphocytes. For additional information, please refer to https://education.[employer] [place].[employer]/faq/NNN725 (This link is being provided for informational/ educational purposes only.) 01/02/2024 2:43 PM EST 01/02/2024 2:43 PM EST Michaela Palacio MD [facility]-IMMUNOLOGY ORDERABLES Fi nal Result Performing Organization Address [facility]/ZIP Co de Phone Number [facility] [address] [place] [address] * CT CHEST ABDOMEN PELVIS W CONTRAST [...] history of other malignant neoplasm of large nnndqvizv-OSP-02-CM. COMPARISON: December 25, [address] and [...] Z85.038-Personal history of other malignant neoplasm oflarge gkfupmvqd-THL-23-CM. COMPARISON: December 25, [address] and [...] - 1.3 mg/dL 12/27/2023 2:33 PM EST [facility] Blood BLOOD SPECIMEN / Unknown 12/27/2023 2:30 PM EST 12/27/2023 2:33 PM EST Rashad Timmons PA-C POINT OF CARE TEST ORDERABLE S Final Result [facility] [address] [place] [address] * ESOPHAGOGASTRODUODENOSCOPY (EGD) (08/02/2023 3:34 [...] None Staff Staff Role Ilana Santiago RN Fha Underwriter MORGAN Hill CRNA, MD Performing Provider MORGAN [...] PM Specimens No specimens collected Leora Monique PORTABLE TRACK LINE MARKER ENDOSCOPY PROCEDURE ORDER XAVIER Final Result * INTRAOP AIRWAY PLACEMENT (08/02/2023 3:03 PM EDT) Narrative [facility] - 08/02/2023 3:03 PM EDT [place] [...] Insertion attempts: 1 us Reza Sky DO MD ANESTHESIA Edited Resu lt - Final [facility] [address] [place] [id number] * (ABNORMAL) BASIC METABOLIC PANEL (08/02/2023 11:48 AM EDT) Only the most recent of8 resultswithin the time period is included. Sodium 142 136 - 145 mmol/L 08/02/2023 12:13 PM EDT [facility] Potassium 3.2(L) 3.5 - 5.0 mmol/L 08/02/2023 12:13 PM EDT [facility] Chloride 104 98 - 107 mmol/L 08/02/2023 12:13 PM EDT [facility] Total CO2 28 22 - 29 mmol/L 08/02/2023 12:13 PM EDT [facility] Anion Gap 10 7 - 16 mmol/L 08/02/2023 12:13 PM EDT [facility] Calcium 9.4 8.8 - 10.4 mg/dL 08/02/2023 12:13 PM EDT [facility] Glucose Lvl 102(H) 82 - 100 mg/dL 08/02/2023 12:13 PM EDT [facility] BUN 19 8 - 23 mg/dL 08/02/2023 12:13 PM EDT [facility] Creatinine 0.73 0.51 - 1.30 mg/dL 08/02/2023 12:13 PM EDT [facility] eGFR (CKD-EPIcr 2020) 89 >=60 mL/min/1.7 3 m2 08/02/2023 12:13 PM EDT [facility] Comment:Estimated GFR was ca lculated using the CKD-EPIcr (2020) equation refit without race. The equation is recommended by the National Kidney Foundation - [place] [employer] of Nephrology Task Force. Blood VENOUS BLOOD / Unknown Venipuncture / Unknown 08/02/2023 11:48 AM EDT 08/02/2023 11:56 AM EDT Rip Meyer MD CHEMISTRY ORDERABLES Final Resul t [facility] [address] [place] [address] * COMPREHENSIVE METABOLIC PANEL-QUEST (07/04/2023 2:16 PM [...] 20 - 32 mmol/L [facility] Calcium 9.2 8.6 - 10.4 mg/dL [facility] [...] Fin al Result [facility] [address] [place] [address] * MM MAMMO DIGITAL BONY SCREEN BILAT (05/16/2023 2:07 PM EDT) Only the most recent of2 resultswithin the time period is included. Anatomical Region Laterality Modality Breast Bilateral Mammography 05/16/2023 2:51 PM EDT Impressions 05/16/2023 2:51 PM EDT Negative (RSH-Wapulyln-8) ~ RECOMMENDATION: Routine screening mammogram in 1 [...] the next mammogram, in accordance with the [place] [employer] and the Society of Breast Imaging recommendations. Narrative 05/16/2023 2:51 PM EDT Procedure:MM MAMMO DIGITAL BONY SCREEN BILAT ~ Reason for exam: screening, asymptomatic. Z12.31-Encounter for screening mammogram for malignant neoplasm of ialcsw-ISA-88-CM ~ MM MAMMO DIGITAL BONY SCREEN BILAT [...] for screening mammogram for malignant neoplasm of uwmies-MOL-79-CM ~ MM MAMMO DIGITAL BONY SCREEN BILAT Bilateral CC and MLO view(s) were taken. Technologist: Gloria Monte, RT There are scattered fibroglandular densities. Prior study comparison: Compared with prior studies the most recentbeing 03/05/22, 02/09/21 No mammographic evidence of malignancy. ~ IMPRESSION: Negative (RST-Cykbpfzc-8) ~ RECOMMENDATION: Routine screening mammogram in 1 [...] the next mammogram, in accordance with the [place] [employer] and the Society of Breast Imaging recommendations. R Evangelista [place] [facility] MAMMOGRAPHY ORDERABLES Jill l Result * (ABNORMAL) [...] STOOL Fi nal Result Performing Organization Address [facility] de Phone Number [facility] [address] [place] [address] * CULTURE, ANAEROBIC BACTERIA WITH GRAM STAIN-QUEST (11/26/2022 11:54 AM EST) Bacteria Identified [facility] SEE NOTE [facility] Comment: CULTURE, ANAEROBIC BACTERIA W/GRAM STAIN Micro Number: [id number] Test Status: Final Specimen Source: R knee fluid Specimen Quality: Adequate Gram Stain: No organisms seen Result: No anaerobes isolated. 11/21/2022 9:0 8 AM EST Narrative [facility] - 11/26/2022 11:54 AM EST FASTING: UNKNOWN Michaela Palacio MD [facility]-MICROBIOLOGY ORDERABLES Final Result Performing Organization Address [facility] de Phone Number [facility] [address] [place] [address] * CULTURE, AEROBIC BACTERIA-QUEST (11/26/2022 11:54 AM EST) Aerobic Bacterial Culture SEE NOTE [facility] Comment: CULTURE, AEROBIC BACTERIA Micro Number: [id number] Test Status: Final Specimen Source: R knee fluid Specimen Quality: Adequate Result: No Growth NO COLLECTION DATE RECEIVED. WE HAVE USED THE DATE THE SPECIMEN WAS RECEIVED BY THIS LABORATORY THE COLLECTION DATE. IF THIS IS INCORRECT, PLEASE CONTACT CLIENT SERVICES. PHONE NUMBER: [phone] 11/21/2022 9:0 8 AM EST Narrative [facility] - 11/26/2022 11:54 AM EST FASTING: UNKNOWN Michaela Palacio MD [facility]-MICROBIOLOGY ORDERABLES Final Result Performing Organization Address [facility] de Phone Number [facility] [address] [facility] [place] [address] * TEST IN QUESTION - MISC. QUESTION (11/26/2022 11:54 AM EST) Service Comment Ques remi [facility] Comment: There is a question regarding the following specimen submitted and/or the test requested. QUESTION: VERIFY CARLOS NEED [id number] [facility] Resolution: [facility] Comment: COMMENTS [facility] Comment: REQUESTED INFORMATION AUTHORIZED SIGNATURE TO PREVENT FURTHER DELAYS IN TESTING, PLEASE COMPLETE INFORMATION ABOVE AND FAX TO [phone] TO RESOLVE THIS ORDER. 11/21/2022 9:0 8 AM EST Narrative [facility] - 11/26/2022 11:54 AM EST FASTING: UNKNOWN Michaela Palacio MD [facility] TEST IN QUESTION CODES F inal Result [facility] [address] [place] [address] * CRYSTALS, SYNOVIAL FLUID-QUEST (11/26/2022 11:54 AM EST) Specimen Source R KNEE FLUID [facility] Crystals, Synovial Fluid NONE SEEN /HPF [facility] Comment:No crystals found 11/21/2022 9:0 8 AM EST Narrative [facility] - 11/26/2022 11:54 AM EST FASTING: UNKNOWN us Michaela Palacio MD [facility]-BODY FLUIDS AND STOOL Fi nal Result [facility] [address] [place] [address] * CARCINOEMBRYONIC ANTIGEN (09/10/2022 2:41 PM EDT) Only the most recent of4 resultswithin the time period is included. CEA 1.21 ng/mL 09/10/2022 10:10 PM EDT [facility] Comment: Non-Smokers: <= 5.0 ng/mL Smokers: <= 10.0 ng/mL [employer] uses the Hung M[employer] Apprentice CEA assay, which is intended to be [...] Timmons PA-C CHEMISTRY ORDERABLES Final R esult [facility] [address] [facility] , [place] [address] * [facility] LOWER EXTREMITY VENOUS RIGHT (08/17/2021 12:09 [...] the contralateral left commonfemoral vein. Judy Gallego PORTABLE TRACK LINE MARKER IMG VASCULAR ORDERABLES Final Result * GMED COLONOSCOPY (08/14/2021 11:00 AM EDT) 08/14/2021 11:0 0 AM EDT Impressions [facility] - 08/14/2021 10:57 AM EDT Polyps (3 mm to 4 mm) in the descending colon. (Polypectomy). Previous Surgery in the colon. Plan: Colonoscopy in 3 years. This section is an excerpt of the full report. Dennis Mak MD GI PROCEDURE ORDERABLES Fin al Result [facility] [address] [place], [place] [id number] * PATHOLOGY TISSUE REQUEST (08/14/2021 11:00 AM EDT) Only the most recent of3 resultswithin the time period is included. CASE REPORT Surgical Pathology Case: [id number] Authorizing Provider: Dennis Mak MD Collected: 08/14/2021 1100 Ordering Location: [facility] Received: 08/14/2021 1544 Pathologist: Manuel Brito MD Specimen: Large Intestine, Left/Descending Colon 08/15/2021 11:55 AM EDT [facility] FINAL DIAGNOSIS Descending Colon Polyp x 2: - Sessile Serrated Polyps, Negative For High-Grade Dysplasia. 08/15/2021 11:55 AM EDT [facility] at 1155 EDT GROSS [...] 08/14/2021 3:52 PM 08/15/2021 11:55 AM EDT [facility] MICROSCOPIC DESCRIPTION Microscopic examination is performed and the findings corroborate the diagnosis. 08/15/2021 11:55 AM EDT [facility] EMBEDDED IMAGES 08/15/2021 11:55 AM EDT [facility] Tissue DESCENDING COLON STRUCTURE / Unknown 08/14/2021 11:00 AM EDT 08/14/2021 3:44 PM EDT us Dennis Mak MD PATHOLOGY ORDERABLES Final Result [facility] [address] [place] [address] [facility] [address] [place] [id number] * CORONAVIRUS 2019 (08/11/2021 2:06 PM EDT) Only the most recent of2 resultswithin the time period is included. CORONAVIRUS [id number] Not Detected Not Detected 08/12/2021 1:19 PM EDT [facility] Comment: Caution should be exercised when interpreting [...] of COVID-19. Test is performed on the Aveg[employer]her platform under the FDA's Emergency Use Authorization (EUA). [employer] Provider Fact Sheet: https://www.fda.gov/media/503143/download Hologic Patient Fact Sheet: https://www.fda.gov/media/859601/download Performed at [facility] [facility] [address] [place] [address] CLIA [id number] Swab BOTH ANTERIOR NARES / Unknown 08/11/2021 2:06 PM EDT 08/11/2021 2:06 PM EDT us Dennis Mak MD MICROBIOLOGY - GENERAL ORDNicola FANG Final Result [place] [facility] [address] [facility], [place] [address] * XR HAND LEFT PA LATERAL AND [...] 3:58 PM CLINICAL HISTORY: M79.642-Pain in left ndog-SMW-59-CM COMPARISON: None. PROCEDURE COMMENTS: XR HAND LEFT [...] 3:58 PM CLINICAL HISTORY: M79.642-Pain in left xtoo-SGE-38-CM COMPARISON: None. PROCEDURE COMMENTS: XR HAND LEFT [...] office of the ordering clinician. Judy Gallego PORTABLE TRACK LINE MARKER IMG DIAGNOSTIC IMAGING ORDERAB LES Final Result * MM MAMMO DIGITAL BONY DIAGN BILAT (02/09/2021 11:13 AM EDT) Only the most recent of2 resultswithin the time period is included. Anatomical Region Laterality Modality Breast Bilateral Mammography 02/09/2021 11:2 9 AM EDT Impressions 02/09/2021 11:29 AM EDT Negative (XHU-Dfozvwjz-1) ~ RECOMMENDATION: Routine screening mammogram in 1 [...] the next mammogram, in accordance with the [place] [employer] and the Society of Breast Imaging recommendations. Narrative 02/09/2021 11:29 AM EDT Procedure:MM MAMMO DIGITAL BONY DIAGN BILAT ~ Reason for exam: clinical finding. N64.89-Other specified disorders of pkiokq-PVU-27-CM. Follow-up asymmetric right breast density. No current [...] exam: clinical finding. N64.89-Other specified disorders of kgkmhd-KAB-76-CM. Follow-upasymmetric right breast density. No current clinical [...] distortion or suspicious calcifications. ~ IMPRESSION: Negative (XNM-Ukbowlfm-5) ~ RECOMMENDATION: Routine screening mammogram in 1 [...] the next mammogram, in accordance with the [place] [employer] and the Society of Breast Imaging recommendations. Cristi Sosa MD IMG MAMMOGRAPHY ORDERABLES F inal Result * EXTRA HERNANDEZ URINE CX (07/28/2020 10:07 AM EDT) Urine 07/28/2020 10:0 7 AM EDT 07/28/2020 10:07 AM EDT us Rashad Timmons PA-C MICROBIOLOGY - GENERAL ORDER XAVIER Final Result [address] [address] * (ABNORMAL) URINALYSIS (07/28/2020 10:07 AM EDT) UA Color Yellow 07/28/2020 3:23 PM EDT [facility] UA Appear Cloudy(A) Clear 07/28/2020 3:23 PM EDT [facility] UA Glucose Negative Negative mg/dL 07/28/2020 [...] ORDERABLES Final Resul t [facility] [address] [facility] , [place] [address] * URINE CULTURE (NO STAIN) (07/28/2020 10:07 AM EDT) Culture No growth at 30 hours. 07/30/2020 10:27 AM EDT [facility] Urine 07/28/2020 10:0 7 AM EDT 07/28/2020 3:23 PM EDT Rashad Timmons PA-C MICROBIOLOGY - GENERAL ORDER XAVIER Final Result Performing Organization Address [facility] de Phone Number [place] [address] , [place] [address] * MAGNESIUM LEVEL (06/21/2020 10:39 AM EDT) Pathologist [facility] Magnesium 2.1 1.6 - 2.4 mg/dL 06/21/2020 11:23 AM EDT [facility] Blood VENOUS BLOOD / Unknown Venipuncture / Unknown 06/21/2020 10:39 AM EDT 06/21/2020 10:39 AM EDT Gonzalez Vargas MD CHEMISTRY ORDERABLES Final R esult Performing Organization Address [facility] de Phone Number [place] [address] , [place] [address] * (ABNORMAL) COMPREHENSIVE METABOLIC PANEL (06/21/2020 10:39 [...] 06/21/2020 11:34 AM EDT [facility] Glucose Lvl 101(H) 82 - 100 mg/dL 06/21/2020 11:34 AM EDT [facility] BUN 14 8 - 23 mg/dL 06/21/2020 11:34 AM EDT [facility] Creatinine 0.66 0.51 - 1.30 mg/dL 06/21/2020 11:34 AM EDT [facility] Albumin 4.0 3.2 - 4.6 gm/dL 06/21/2020 11:34 AM EDT [facility] Total Protein 7.1 6.4 - 8.3 gm/dL 06/21/2020 11:34 AM EDT [facility] Bili Total 0.2 0.1 - 1.3 mg/dL 06/21/2020 11:34 AM EDT [facility] ALT 5 <=41 U/L 06/21/2020 11:34 AM EDT [facility] AST 12 <=40 U/L 06/21/2020 11:34 AM EDT [facility] Alk Phos 65 36 - 123 U/L 06/21/2020 11:34 AM EDT [facility] GFR Afr Am 107 >=60 mL/min/1.7 3 m2 06/21/2020 11:34 AM EDT [facility] GFR Non Afr Am 93 >=60 mL/min/1.7 3 m2 06/21/2020 11:34 AM EDT [facility] Comment: This estimated GFR was [...] ORDERABLES Final R esult Performing Organization Address [facility] Co de Phone Number [facility] [address] [facility], [place] [address] [facility] [address] [place] [address] * SCANNED RHYTHM STRIPS (06/06/2020 [...] time period is included. ECG INTERPRET NSR [facility] 06/04/2020 7:32 AM EDT Narrative [facility] - 06/04/2020 8:50 AM EDT NAIF AICU/ROUTINE MD 0.12 QRS 0.10 RR 0.72 QT 0.42 See Clinical Report link for waveform capture us Unknown Provider POINT OF CARE CARDIOLOGY Final Result Performing Organization Address City/[facility]/ZIP Co de Phone Number [facility] [address] [place] [address] * EK EKG 12 LEAD (06/03/2020 2:24 PM EDT) Only the most recent of4 resultswithin the time period is included. Anatomical Region Laterality Modality Electrocardiogra phy 06/03/2020 3:02 PM EDT Impressions 06/03/2020 3:[address] [facility] 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1955 Requested By: RASHAD TIMMONS Order Number: [id number] Reading MD: Arcadio Rooney MD Measurements Intervals [place] Rate: 91 P: 59 MD: 134 QRS: 42 QRSD: 100 T: 41 QT: 349 QTc: 430 Interpretive Statements SINUS RHYTHM WITH OCCASIONAL ECTOPIC PREMATURE COMPLEXES NONSPECIFIC ST & T-WAVE ABNORMALITY Electronically Signed On 06-03-2020 15:35:59 EDT by Arcadio Rooney MD us Rashad MORIN-Boone IMG ECG ORDERABLES Final Res ult * Peripheral Block by Anesthesia (06/02/2020 2:25 PM EDT) Narrative [facility] - 06/02/2020 2:25 PM EDT Warren [...] Hernandez MD ANESTHESIA ORDERAB[place] [address] * Proactive Comfort MISMATCH REPAIR (MMR) IHC PANEL (06/02/2020 1:51 PM EDT) [employer] Result H&E (Comments) = B) Sigmoid Colon [...] MLH1 in formalin-fixed paraffin-embedded tissue sections. A polymerNarus based system was used for detection. MLH1 (Disclaimer) = MMR references ranges are based on [employer]` internal validation, and we recommend cases with equivocal staining be confirmed with microsatellite instability (MSI) testing. MLH1 (Control Statement) = The digitized slide(s) was/were adequate for quantitative image analysis. All controls were reviewed and showed appropriate positive and negative immunoreactivity. MLH1 (Image Analysis Statement) = Whole slide image capture was performed with the [employer] ScanScope and quantitative computer-assisted image analysis using Informative software. MSH2 (Intended Use) = Mismatch repair [...] MSH2 in formalin-fixed paraffin-embedded tissue sections. A polymerNarus based system was used for detection. MSH6 [...] MSH6 in formalin-fixed paraffin-embedded tissue sections. A polymerNarus based system was used for detection. PMS2 [...] PMS2 in formalin-fixed paraffin-embedded tissue sections. A Picovico based system was used for detection. [facility] 06/02/2020 1:51 PM EDT Narrative [facility] - 06/13/2020 1:22 PM EDT Requesting Provider: Gonzalez Hollingsworth Specimen = [id number] us Manuel Brito MD PATHOLOGY ORDERABLES Final Res ult [facility] [address] [place] [address] * INTRAOP AIRWAY PLACEMENT (06/02/2020 8:44 AM EDT) Narrative [facility] - 06/02/2020 8:44 AM EDT Annalise [...] AADAMS RRNA Title: RNSA Kayode To MD MD ANESTHESIA Edited Result - Final Performing Organization Address [facility] Co de Phone Number [facility] [address] [place] [address] * BB HISTORY CHECK (05/20/2020 12:22 PM EDT) Only the most recent of2 resultswithin the time period is included. BB HISTORY CHECK (1) Previous History OK 05/20/2020 12:53 PM EDT [facility] Blood VENOUS BLOOD / Unknown Venipuncture / Unknown 05/20/2020 12:22 PM EDT 05/20/2020 12:33 PM EDT Gaby Garcia PORTABLE TRACK LINE MARKER BLOOD BANK ORDERABLES Final R esult Performing Organization Address [facility] Co de Phone Number [facility] [place] [address] * SURGERY DATE (05/20/2020 12:22 PM EDT) Only the most recent of2 resultswithin the time period is included. Surgery Date (1) Complete 05/20/2020 12:54 PM EDT [facility] Blood VENOUS BLOOD / Unknown Venipuncture / Unknown 05/20/2020 12:22 PM EDT 05/20/2020 12:33 PM EDT Gaby Garcia PORTABLE TRACK LINE MARKER BLOOD BANK ORDERABLES Final R esult Performing Organization Address City/[facility] Co de Phone Number [facility] [place] [address] * ABORH (05/20/2020 12:22 PM EDT) Only the most recent of2 resultswithin the time period is included. ABORH Int A POS 05/20/2020 1:2 0 PM EDT [facility] Blood VENOUS BLOOD / Unknown Venipuncture / Unknown 05/20/2020 12:22 PM EDT 05/20/2020 12:33 PM EDT Gaby Garcia [facility] BLOOD BANK ORDERABLES Final R esult Performing Organization Address City/[facility]/ZIP Co de Phone Number [facility] [address] [place] [address] * ANTIBODY SCREEN IGG (05/20/2020 12:22 PM EDT) Only the most recent of2 resultswithin the time period is included. 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 W69-Zktyuqkma neoplasmof rectosigmoid otjrvvwr-RGO-56-CM COMPARISON: Prior PET and CT PROCEDURE COMMENTS: [...] No evidence of hypermetabolic metastatic disease. - Rasahd Timmons PA-C IMG PET ORDERABLES Final Res ult * GLUCOSE METER POC (04/28/2020 8:34 AM EDT) [facility] Glucose Meter POC 96 70 - 100 mg/dL 04/28/2020 8:35 AM EDT [facility] Sample Type Capillary 04/28/2020 8:35 AM EDT [facility] Patient Status Non-Critical Patient 04/28/2020 8:35 AM EDT [facility] Blood BLOOD SPECIMEN / Unknown 04/28/2020 8:34 AM EDT 04/28/2020 8:35 AM EDT Rashad Timmons PA-C POINT OF CARE TEST ORDERABLE S Final Result Performing Organization Address [facility] de Phone Number [facility] [address] [place] [address] * GMED EGD-COLONOSCOPY (04/15/2020 10:20 AM EDT) 04/15/2020 10:2 0 AM EDT Impressions [facility] - 04/15/2020 11:24 AM EDT Plan: CT scan chest/abdomen/pelvis with contrast Colonoscopy in 1 year. This section is an excerpt of the full report. Dennis Mak MD GI PROCEDURE ORDERABLES Fin al Result Performing Organization Address [facility] Co de Phone Number [facility] [address] [place] [address] * CORONAVIRUS 2019 (COVID-19) - REF LAB (04/12/2020 11:25 AM EDT) [facility] CORONAVIRUS [id number] Not Detected 04/14/2020 11:25 AM EDT [facility] [...] In compliance with this authorization, please visit [email or web address] for more information and to access the applicable information sheets. If the result is Not Detected, this does not rule out the presence of PCR inhibitors in the patient specimen or assay specific nucleic acid in concentrations below the level of detection by the assay. Performed by [facility], [address] [place] [address] [email or web address], Craig Machuca MD, Lab. Director Coronavirus Echoing [facility] Source Nasopharyngeal 04/14/2020 11:25 AM EDT [facility] [employer] Swab NASOPHARYNGEAL STRUCTURE / Unknown 04/12/2020 11:25 AM EDT 04/12/2020 11:25 AM EDT us Dennis Mak MD LAB SEND OUT ORDERABLES Fin al Result [facility] [address] [place] [address] * MRI KNEE LEFT WO CONTRAST (12/02/2019 [...] CONTRAST, 12/02/2019. CLINICAL HISTORY: M25.562-Pain in left dbhq-TBC-10-CM COMPARISON: None. TECHNIQUE: Multiplanar, multisequence MR images [...] CONTRAST, 12/02/2019. CLINICAL HISTORY: M25.562-Pain in left jzxz-GTP-28-CM COMPARISON: None. TECHNIQUE: Multiplanar, multisequence MR images [...] tricompartmental osteoarthrosis. us Ming Santamaria MD [facility] MRI ORDERABLES Final Res ult * MRI [...] CONTRAST, 12/02/2019. CLINICAL HISTORY: M25.511-Pain in right yjzcdche-ULH-91-CM COMPARISON: None. TECHNIQUE: Multiplanar, multisequence MR images [...] CONTRAST, 12/02/2019. CLINICAL HISTORY: M25.511-Pain in right kxgyznuf-ALU-25-CM COMPARISON: None. TECHNIQUE: Multiplanar, multisequence MR images [...] CONTRAST, 12/02/2019. CLINICAL HISTORY: M25.512-Pain in left wfpzgxpc-PRN-65-CM COMPARISON: None. TECHNIQUE: Multiplanar, multisequence MR images [...] CONTRAST, 12/02/2019. CLINICAL HISTORY: M25.512-Pain in left zkcacjcj-URD-31-CM COMPARISON: None. TECHNIQUE: Multiplanar, multisequence MR images [...] - 2.5 % 09/28/2019 4:08 PM EST [facility] Retic # 40.8 40.0 - 110.0 x10(3)/mcL 09/28/2019 4:08 PM EST [facility] Imm. Retic Fraction % 8.5 3.1 - 17.6 % 09/28/2019 4:08 PM EST [facility] Retic Hgb 36.8 23.0 - 38.0 pg 09/28/2019 4:08 PM EST [facility] Blood VENOUS BLOOD / Unknown Venipuncture / Unknown 09/28/2019 3:36 PM EST 09/28/2019 3:36 PM EST Narrative PREFERRED [facility] - 09/28/2019 4:08 PM EST Reticulocyte hemoglobin [...] [id number]:[phone]. (4)Jj Lan., et al. 2010. Blood [phone]. us Dennis Mak MD HEMATOLOGY ORDERABLES Final Result [facility], [facility] [address] [facility] , [address] [place], [place] [id number] * (ABNORMAL) IRON/UIBC (09/28/2019 3:36 PM EST) [...] CHEMISTRY ORDERABLES Final Result [facility], [facility] [address] [facility] , [place] [address] * (ABNORMAL) CBC (09/28/2019 3:36 PM EST) [...] x10(3)/mcL 09/28/2019 4:08 PM EST PREFERRED LAB [facility] MPV 9.9 8.8 - 12.5 fL 09/28/2019 4:08 PM EST PREFERRED [facility] Blood VENOUS BLOOD / Unknown Venipuncture / Unknown 09/28/2019 3:36 PM EST 09/28/2019 3:36 PM EST us Dennis Mak MD HEMATOLOGY ORDERABLES Final Result Performing Organization Address [facility] de Phone Number [facility] [address] , [place] [address] * FERRITIN (09/28/2019 3:36 PM EST) Pathologist [facility] Ferritin 25 13 - 150 ng/mL 09/28/2019 4:39 PM EST [facility]REFERRED [facility] Blood Venipuncture / Unknown 09/28/2019 3:36 PM EST 09/28/2019 3:36 PM EST Narrative [facility] - 09/28/2019 4:39 PM EST Ingestion of del doses of biotin (>5 mg/day) taken within 8 hours of drawing blood sample can interfere with this immunoassay test. us Dennis Mak MD CHEMISTRY ORDERABLES Final Result Performing Organization Address [facility] de Phone Number [facility] [address] , [place] [address] * MM US BREAST LIMITED RIGHT (09/11/2019 1:02 PM EDT) Anatomical Region Laterality Modality Breast Right Ultrasound 09/11/2019 2:42 PM EDT Impressions 09/11/2019 2:42 PM EDT Benign finding (PAP-Uontggho-0) ~ RECOMMENDATION: Follow-up diagnostic mammogram of both [...] N63.10-Unspecified lump in the right breast, unspecified gbdesqej-XBQ-07-CM ~ MM US BREAST LIMITED RIGHT Standard [...] mass. N63.10-Unspecified lump in the right breast, nuuebmvyoxwjudicfcl-PMV-46-CM ~ MM US BREAST LIMITED RIGHT Standard [...] shadowing or distortion. ~ IMPRESSION: Benign finding (MAB-Hirfaehu-2) ~ RECOMMENDATION: Follow-up diagnostic mammogram of both [...] IMG MAMMOGRAPHY ORDERABLES F inal Result * GLOBAL MARKETING MANAGER CYTOLOGY REQUEST (PAP ONLY) (09/03/2019 11:09 AM EDT) CASE REPORT Gynecologic Cytology Report Case: [id number] Authorizing Provider: Cristi Sosa MD Collected: 09/03/2019 1109 Ordering Location: [facility] Received: 09/03/2019 1109 First Screen: Kenny Turner CT Specimen: LIQUID-BASED PAP - CERVICAL/ENDOCERV ICAL, Cervix, Endocervical 09/04/2019 10:37 AM EDT [facility] PAP FINAL DIAGNOSIS Negative for intraepithelial lesion or malignancy 09/04/2019 10:37 AM EDT [facility] at 1037 EDT MICROSCOPIC DESCRIPTION Microscopic examination is performed and the findings corroborate the diagnosis. 09/04/2019 10:37 AM EDT [facility] PAP SMEAR ADEQUACY Satisfactory for evaluation 09/04/2019 10:37 AM EDT [facility] ENDOCERVICAL T-ZONE Transformation zone present 09/04/2019 10:37 AM EDT [facility] EMBEDDED IMAGES 9 10:37 AM EDT [facility] PAP DISCLAIMER The Pap Smear is a screening test that aids in the detection of cervical cancer and cancer precursors. Both false positive and false negative results can occur. The test should be used at regular intervals, and positive results should be confirmed before definitive therapy. Processed using the [employer] Automated cytology screening device (Fanzo). 09/04/2019 10:37 AM EDT [facility] Thin Prep ENDOCERVICAL STRUCTURE / Unknown 09/03/2019 11:09 AM EDT 09/03/2019 11:09 AM EDT Cristi Sosa MD CYTOLOGY ORDERABLES Final Re sult [facility] [address] [place] [address] * XR FOOT LEFT AP LATERAL AND [...] 15.7 g/dL 05/20/2019 7:57 AM EDT PREFERRED [facility] Hct 30.3(L) 34.0 - 45.0 % 05/20/2019 7:57 AM EDT [facility] Blood Venipuncture / Unknown 05/20/2019 7:29 AM EDT 05/20/2019 7:35 AM EDT us Prakash Viramontes MD HEMATOLOGY ORDERABLES Final Result PREFERRED [facility] [address] [place] [address] , [place] [address] * XR PELVIS (05/19/2019 1:39 PM EDT) [...] fracture or dislocation. Prakash Viramontes MD [facility] DIAGNOSTIC IMAGING ORDER XAVIER Final Result * FL < 1 HOUR (05/19/2019 1:02 PM EDT) Narrative PACS - 05/19/2019 2:30 PM EDT Fluoroscopy was performed. The radiologist was not in attendance. No permanent images were obtained. This dictation is being made for record keeping purposes. Prakash Viramontes MD [facility] FLUOROSCOPY ORDERABLES F inal Result PACS * [...] finding. IMPRESSION: Satisfactory intraoperative imaging. - - [facility] IMAGING ORDER XAVIER Final Result * INTRAOP AIRWAY PLACEMENT (05/19/2019 12:09 PM EDT) Narrative [facility] - 05/19/2019 12:09 PM EDT Eliseo [...] motion Condition: Atraumatic Insertion attempts: 1 Title: UTILITY ARBORIST us Eliseo Aguayo CRNA MD ANESTHESIA Final Re sult [facility] [address] [place] [address] * Peripheral Block by Anesthesia (05/19/2019 11:30 AM EDT) Narrative [facility] - 05/19/2019 11:30 AM EDT Esther [...] surrounding nerve by ultrasonographc visualization Additional Notes [facility] Procedure Note Esther Zarate MD - 05/19/2019 [...] surrounding nerve by ultrasonographc visualization Additional Notes [facility] us Esther Zarate MD ANESTHESIA ORDERABLES Fin al Result [place] [id number] * (ABNORMAL) VITAMIN B12/ FOLIC ACID (05/07/2019 12:11 PM EDT) Vitamin B12 312 211 - 946 pg/mL 05/07/2019 1:48 PM EDT [facility] Folate >16.00(H) 4.50 - 16.00 ng/mL 05/07/2019 1:48 PM EDT [facility] Blood Venipuncture / Unknown 05/07/2019 12:11 PM EDT 05/07/2019 12:11 PM EDT Narrative [place] [facility] [place] [facility] - 05/07/2019 1:48 PM EDT Ingestion of del doses of biotin (>5 mg/day) taken within 8 hours of drawing blood sample can interfere with this immunoassay test. us Vikas Burnham MD CHEMISTRY ORDERABLES Final Resul t Performing Organization Address [facility] Co de Phone Number [facility] [address] , [place] [address] * TSH REFLEX (05/07/2019 12:11 PM EDT) Pathologist [facility] TSH Reflex 0.963 0.270 - 4.200 mcIU/mL 05/07/2019 1:32 PM EDT [facility] Blood Venipuncture / Unknown 05/07/2019 12:11 PM EDT 05/07/2019 12:11 PM EDT Narrative [facility] - 05/07/2019 1:32 PM EDT Ingestion of del doses of biotin (>5 mg/day) taken within 8 hours of drawing blood sample can interfere with this immunoassay test. us Vikas Burnham MD CHEMISTRY ORDERABLES Final Resul t Performing Organization Address [facility]/ZIP Co de Phone Number [facility] [address] , [place] [address] * PT / INR (05/07/2019 12:05 PM EDT) Pathologist [facility] PT 10.7 9.7 - 12.5 second(s) 05/07/2019 1:08 PM EDT [place] [facility] INR 0.95 0.86 - 1.10 no units 05/07/2019 1:08 PM EDT [facility] Comment: Level of Therapy Indications Target INR Range Standard Dose Treatment and prophylaxis of venous 2.0 - 3.0 thrombosis, pulmonary embolism High Dose High risk patients with mechanical 2.5 - 3.5 heart valves Blood VENOUS BLOOD / Unknown Venipuncture / Unknown 05/07/2019 12:05 PM EDT 05/07/2019 12:05 PM EDT us Prakash Viramontes MD HEMATOLOGY ORDERABLES Final Result [facility] [address] [facility] , [place] [address] * MRI PELVIS WO CONTRAST (01/28/2019 1:36 [...] CONTRAST, 01/28/2019. CLINICAL HISTORY: M25.551-Pain in right gfa-RRN-72-CM M25.552-Pain in left dee-XVV-67-CM COMPARISON: MRI left hip 07/03/2012. TECHNIQUE: Multiplanar, [...] CONTRAST, 01/28/2019. CLINICAL HISTORY: M25.551-Pain in right rce-BWM-83-CM M25.552-Pain in left oua-WPD-36-CM COMPARISON: MRI left hip 07/03/2012. TECHNIQUE: Multiplanar, [...] fascia and tendon at neck level, initial mmbbixvlv-BZX-87-CM S29.019A-Strain of muscle and tendon of unspecified wall of thorax, initial ijxxkbnfz-XUI-02-CM S39.012A-Strain of muscle, fascia and tendon of lower back, initial jawsdjdxf-SNX-76-CM COMPARISON: None PROCEDURE COMMENTS: Multiplanar multiecho MR [...] muscle, fascia and tendon at necklevel, initial kasnkosbe-JVZ-00-CM S29.019A-Strain of muscle and tendon of unspecified wall of thorax,initial raredllec-DNK-88-CM S39.012A-Strain of muscle, fascia and tendon of lower back, initial bdjbiwhpx-OPD-17-CM COMPARISON: None PROCEDURE COMMENTS: Multiplanar multiecho MR [...] fascia and tendon at neck level, initial sodqcvjzg-ZLR-50-CM S29.019A-Strain of muscle and tendon of unspecified wall of thorax, initial cjthguuvt-MZZ-48-CM S39.012A-Strain of muscle, fascia and tendon of lower back, initial zdwzehicg-DVB-50-CM COMPARISON: None. PROCEDURE COMMENTS: Multiplanar multiecho MR [...] muscle, fascia and tendon at necklevel, initial yhjqgjlnt-MCF-29-CM S29.019A-Strain of muscle and tendon of unspecified wall of thorax,initial bhimwateb-TZN-88-CM S39.012A-Strain of muscle, fascia and tendon of lower back, initial wvbluwdjh-IAS-40-CM COMPARISON: None. PROCEDURE COMMENTS: Multiplanar multiecho MR imaging of the thoracicspine. Sagittal imaging of the entire thoracic spine with selected axial imaging. FINDINGS: Moderate dextroscoliosis noted. No subluxation detected. No fractureidentified. No bone marrow edema or suspicious bony lesions detected. Degenerativechange of intervertebral discs noted with multilevel disc space narrowingdesiccation and disc bulge or shallow protrusions noted most prominent at T9-10 lftS36-51. But these disc protrusions are mild. No [...] fascia and tendon at neck level, initial mpkypryte-PVA-46-CM S29.019A-Strain of muscle and tendon of unspecified wall of thorax, initial knerdyjpd-LRI-15-CM S39.012A-Strain of muscle, fascia and tendon of lower back, initial ezdjjfmoo-PQY-21-CM COMPARISON: MR cervical spine June 14, 2015 [...] muscle, fasciaand tendon at neck level, initial zapumwtna-XUD-82-CM S29.019A-Strain of muscle and tendon of unspecified wall of thorax,initial ccnkltkkl-RZH-18-CM S39.012A-Strain of muscle, fascia and tendon of lower back, initial ovrpcpdic-FWT-36-CM COMPARISON: MR cervical spine June 14, 2015 [...] Moderate to marked left and moderate right V9sttfboebs narrowing representing potential mechanisms of nerve root impingement.Mild central stenosis. Similar findings on prior. C5/C6: Broad-based discogenic disease with associated this marginspurring and mild indentation of the subarachnoid space. Mild to moderate left D2milqacbiw narrowing. C6/C7: Mild discogenic disease with associated [...] by level discussion. Ming Santamaria MD [facility] MRI ORDERABLES Final Res ult * NM BONE SCAN WHOLE BODY (09/18/2018 3:23 PM EST) Anatomical Region Laterality Modality Nuclear Medicine 09/18/2018 3:23 PM EST Impressions 09/18/2018 4:32 PM EST 1. Multifocal axial and appendicular degenerative changes. Narrative 09/18/2018 4:32 PM EST WHOLE BODY BONE SCAN, 09/18/2018 3:23 PM CLINICAL HISTORY: M54.5-Low back piyg-LZM-84-CM COMPARISON: 2 view chest October 30, 2016 PROCEDURE COMMENTS: 20.2 mCi of Ou73j-EEG. Whole body bone scanning per protocol. FINDINGS: [...] 09/18/2018 3:23 PM CLINICAL HISTORY: M54.5-Low back irqj-WSX-18-CM COMPARISON: 2 view chest October 30, 2016 PROCEDURE COMMENTS: 20.2 mCi of Zq99v-HFH. Whole body bone scanningper protocol. FINDINGS: There is multifocal abnormal uptake in the spine, including posteriorelements in the upper and mid thoracic spine as well as upper lumbar spine. Theseare likely degenerative. There is additional degenerative change at the left hip, rightsternoclavicular joint, both knees, and both feet. IMPRESSION: 1. Multifocal axial and appendicular degenerative changes. Ming Santamaria MD [facility] NM ORDERABLES Final Resu lt * CT HEAD WO CONTRAST (09/18/2018 12:49 PM EST) Anatomical Region Laterality Modality Head Computed Tomogra phy 09/18/2018 12:4 9 PM EST Impressions 09/18/2018 1:09 PM EST No acute intracranial abnormality. Narrative 09/18/2018 1:[address] HEAD WO CONTRAST 09/18/2018 12:49 PM CLINICAL HISTORY: S09.90XS-Unspecified injury of head, ghesjqf-PFC-35-CM COMPARISON: None. PROCEDURE COMMENTS: Routine noncontrast head [...] 12:49 PM CLINICAL HISTORY: S09.90XS-Unspecified injury of head,tebcsbp-IOG-22-CM COMPARISON: None. PROCEDURE COMMENTS: Routine noncontrast head [...] 10/30/2016 11:37 AM History: 61 years .Female. A44-Txlxj-YGD-53-AU. Compare: February 13, 2006 Procedure Note Javed Fu MD - 10/30/2016 XR CHEST PA AND LATERAL 10/30/2016 11:37 AM History: 61 years .Female. T15-Szmld-GJD-20-BZ. Compare: February 13, 2006 IMPRESSION: Tortuous thoracic aorta. Moderate degenerative changes thoracic spine. No radiographic evidence of acute cardiac or pulmonary diseaseprocess. Judy Shoko Julián [facility] DI[facility]NO[facility]IC IMAGING ORDERAB LES Final Result * PULMONARY FUNCTION TEST (10/30/2016 10:41 AM EST) 10/30/2016 10:4 1 AM EST Impressions [facility] - 10/30/2016 10:41 AM EST Good patient effort and understanding. Acceptable results and reproducibility. NORMAL PFTs. Clinical Correlation is Required. This data was interpreted based upon the 2005 ATS/ERS Task Force Position Statement: Interpretative Strategies for Lung Function Tests. This section is an excerpt of the full report. [facility] ORDERABLES Final Result [facility] [address] [place] [address] * MM MAMMO DIGITAL SCREENING W CAD BILAT (05/16/2016 3:48 PM EDT) Only the most recent of4 resultswithin the time period is included. Anatomical Region Laterality Modality Breast Bilateral Mammography 05/17/2016 12:3 5 PM EDT Impressions 05/17/2016 1:30 PM EDT : Negative (LON-Ohpuofmm-8) ~ RECOMMENDATION: Routine screening mammogram in 1 [...] the most recent studies of 05-12-15. ~ [facility] Evangelista Arelis IMG MAMMOGRAPHY ORDERABLES [...] show Sinus Rhythm 78-125 average 94. PVC's [address]25[address]. No VT. PAC's 12. No SVT. Narrative 03/19/2015 11:59 AM EDT INDICATIONS: Chest Pain LENGTH OF TAPE 23 HRS 59 MINS MEDICATION: None listed SLOWEST RATE 76 FASTEST RATE 125 AVERAGE RATE 94 TOTAL PVC'S 58806 TOTAL PAC'S 12 VENTRICULAR TACHYCARDIA SUPRAVENTRICULAR TACHYCARDIA [...] no significant reversible defects. Javed Curtis [facility] Final Result * ST STRESS TEST LEXISCAN (11/29/2014 12:01 PM EST) Anatomical Region Laterality Modality Cardiac Stress T esting 11/29/2014 11:3 0 AM EST Impressions 12/02/2014 12:45 PM EST Exercise ECG Report [place] Interpretive Statements Stress Test Lexiscan Reason for [...] esophageal dilation. Fluoroscopy time: 1.2 minutes FINDINGS: Customer Marketing Manager film unremarkable. Esophagus normal in appearance. Normal esophageal motility. No esophageal mass or stricture. No hiatal hernia. No gastroesophageal reflux was seen. Procedure Note Kenny Welch MD - 09/02/2013 Esophagram, 09/02/2013 HISTORY: Chest pain, status post recent endoscopy with esophagealdilation. Fluoroscopy time: 1.2 minutes FINDINGS: Customer Marketing Manager film unremarkable. Esophagus normal in appearance. [...] AM EDT) 08/12/2013 7:30 AM EDT Impressions [facility] - 08/12/2013 7:47 AM EDT Normal stomach. Normal duodenum. Normal mucosa in the whole esophagus. (Dilation). Plan: Follow-up as needed This section is an excerpt of the full report, which can be found by clicking the hyperlink. Dennis Mak MD GI PROCEDURE ORDERABLES Fin al Result Performing Organization Address [facility] Co de Phone Number [facility] [address] [place] [address] * SBCPT-[facility] (08/12/2013 12:00 AM EDT) CPT Code(s) [facility] Comment: [id number], [id number] [employer] assumes no responsibility for the accuracy of CPT codes provided which are for informational purposes only. CPT codes are payor specific and CPT coding is the sole responsibility of the billing entity. 08/12/2013 08/12/2013 11: 40 PM EDT Narrative [facility] - 08/13/2013 4:26 PM EDT FASTING: UNKNOWN Resulting Agency Comment Performing Organization Information: Site ID: OW [facility]: [facility] Address: [address] [place] [address] [place] [address] Director: Gerhard Hayes MD PhD us Dennis Mak MD [facility]-HEMATOLOGY ORDERABLES Final Result Performing Organization Address City/[facility]/ZIP Co de Phone Number WILBUR BECKMAN[address] [address], [place] * TISSUE PATHOLOGY-[facility] (08/12/2013 12:00 AM [...] in cassette A. Gross exam(s) performed at: [employer] [address] [address] Mig Tig Welder: GERHARD HAYES MD PHD Specimen A Diagnosis [facility] Comment: - Benign hyperplastic polyps. [id number] Specimen B Clinical Impression Polyp in the [...] [facility] Comment: - Tubular adenoma. [id number] 08/12/2013 08/12/2013 11: 40 PM EDT Narrative [facility] - 08/13/2013 4:26 PM EDT FASTING: UNKNOWN Resulting Agency Comment Performing Organization Information: Site ID: [id number] Name: [facility] Address: [address] [place] [address], [place] [address] Director: Neal Isabel MD Dennis Mak MD [facility] ORDERABLES Final Result [facility] [address] [facility] [place] [address], [facility] * GMED COLONOSCOPY (08/12/2013 12:00 AM EDT) 08/12/2013 Impressions [facility] - 08/12/2013 7:44 AM EDT [...] ORDERABLES Fin al Result Performing Organization Address [facility] Co de Phone Number [facility] [address] [place] [address] * DIFFERENTIAL (08/11/2013 9:50 AM EDT) Neut Percent 46.7 % SE LAB Lymph Percent 42.7 % [facility] Blaine Percent 7.2 % [facility] Eos Percent 3.1 % [facility] Baso Percent 0.3 % [facility] Neut# 2.4 1.8 - 7.7 x10(3)/[facility] Lymph# 2.2 0.6 - 4.8 x10(3)/[facility] Blaine# 0.4 0.0 - 1.3 x10(3)/[facility] Eos# 0.2 0.0 - 0.5 x10(3)/[facility] Baso# 0.0 0.0 - 0.2 x10(3)/[facility] Blood specimen (specimen) 08/11/2013 9:50 AM EDT 08/11/2013 8:52 PM EDT Moustapha Shaffer DPM HEMATOLOGY ORDERABLES Final R esult Performing Organization Address [facility] Co de Phone Number [facility] [address] [place] [address] * MM MOBILE MAMMO DIGITAL SCREEN W CAD TRAMAINE (07/16/2012 1:11 PM EDT) Anatomical Region Laterality Modality Breast Mammography 07/18/2012 10:5 3 AM EDT Impressions 07/18/2012 1:41 PM EDT : No radiographic evidence of malignancy (NGD-Zpkazoes-2) ~ RECOMMENDATION: Routine screening mammogram in 1 [...] ~ IMPRESSION: No radiographic evidence of malignancy (VRP-Repemikw-9) ~ RECOMMENDATION: Routine screening mammogram in 1 [...] disease about the left hip. There is szsz-jz-yvri articulation with cortical remodeling. There is collapse [...] degenerative disease about the lefthip. There is smkt-it-pjcs articulation with cortical remodeling. There is collapse [...] views. IMPRESSION- No radiographic evidence of malignancy (BBG-Ohcxufma-1) RECOMMENDATION- Routine screening mammogram in 1 year. * The patient with a palpable abnormality, unexplained by breast imaging, should be managed on clinical basis by the attending physician. * Breast imaging has a false negative rate of 15%. * The patient was notified by mail of the results of this examination. Hydrometer Calibrator- RODRÍGUEZ GIBBS Reading Physician- ERNST WATSON MD Released Date Time- 07/06/09 1134 Procedure Note Ernst Watson - 01/19/2010 Procedure-MM DIGITAL DIAG UNILAT MM DIGITAL DIAG UNILAT CC and MLO view(s) were taken of the left breast. No abnormality is seen on additional views. IMPRESSION- No radiographic evidence of malignancy (WCV-Tsursafg-2) RECOMMENDATION- Routine screening mammogram in 1 year. * The patient with a palpable abnormality, unexplained by breast imaging, should be managed on clinical basis by the attending physician. * Breast imaging has a false negative rate of 15%. * The patient was notified by mail of the results of this examination. Hydrometer Calibrator- RODRÍGUEZ Garcia Physician- ERNST WATSON MD Released Date Time- 07/06/09 1134 [facility] Evangelista Infante [facility] al Result * MM DIG [...] dated 03-23-08 IMPRESSION- Incomplete-need additional imaging evaluation ([id number]) RECOMMENDATION- Special view mammogram of the left [...] dated 03-23-08 IMPRESSION- Incomplete-need additional imaging evaluation ([id number]) RECOMMENDATION- Special view mammogram of the left [...] Released Date Time- 07/01/09 1140 Benita Infante [facility] HISTOR[facility] Fin al Result * MR [...] due to spur projecting from the facet. Hydrometer Calibrator- RADHA Garcia Physician- ILANA SHI MD Released [...] due to spur projecting from the facet. Hydrometer Calibrator- RADHA Garcia Physician- ILANA SHI MD Released Date Time- 04/19/09 1928 Michaela Palacio MD IMG [facility] HISTORICAL Fi nal Result * EK EKG REG (11/27/2008 2:26 PM EST) Anatomical Region Laterality Modality Other 11/27/2008 2:26 PM EST Narrative 11/28/2008 11:16 AM EST Sinus rhythm with PVC(s) Anterior T wave changes are nonspecific Borderline ECG No previous records available at this time Clinical correlation is recommended. Hydrometer Calibrator- FRANKLIN GARCIA M.D. Reading Physician- FRANKLIN GARCIA M.D. Released Date Time- 11/28/08 1116 Procedure Note Franklin Garcia - 01/19/2010 Sinus rhythm with PVC(s) Anterior T wave changes are nonspecific Borderline ECG No previous records available at this time Clinical correlation is recommended. Hydrometer Calibrator- FRANKLIN GARCIA M.D. Reading Physician- FRANKLIN GARCIA M.D. Released Date Time- 11/28/08 1116 Eliseo Martel MD [facility] Final Result * XR FOOT & TOES (06/29/2008 3:01 PM EDT) Anatomical Region Laterality Modality Other 06/29/2008 3:01 PM EDT Narrative 06/29/2008 7:17 PM EDT Right foot and toes, 06/29/2008- Indication- Pain. Three views right foot and toes show midfoot degenerative change, hallux valgus, bunion formation, and hallux MTP degenerative change. No acute fracture. Hydrometer Calibrator- ERICA Garcia Physician- CONNOR PAYTON MD Released Date Time- 06/29/082025 Procedure Note Connor Payton - 01/19/2010 Right foot and toes, 06/29/2008- Indication- Pain. Three views right foot and toes show midfoot degenerative change, hallux valgus, bunion formation, and hallux MTP degenerative change. No acute fracture. Hydrometer Calibrator- ERICA Jj- CONNOR PAYTON MD Released Date Time- 06/29/082025 [facility] Result * XR WRIST (11/05/2006 10:00 AM EST) Anatomical Region Laterality Modality Other 11/05/2006 10:0 0 AM EST Narrative 11/05/2006 11:05 AM EST FOUR VIEWS OF RIGHT WRIST - 11/05/06 History- Pain in the scaphoid region. No injury. There is no evidence of fracture or dislocation. No significant arthritic process is seen. Hydrometer Calibrator- RACHID Garcia Radiologist- CHANA JASSO MD Released Date Time- 11/05/06 1309 Procedure Note Chana Jasso - 01/18/2010 FOUR VIEWS OF RIGHT WRIST - 11/05/06 History- Pain in the scaphoid region. No injury. There is no evidence of fracture or dislocation. No significant arthritic process is seen. Hydrometer Calibrator- RACHID Garcia Radiologist- CHANA JASSO MD Released Date Time- 11/05/06 1309 Benita Infante [facility] HISTORICAL Fin al Result * FL STOMACH/ESOPHAGUS TOWER HAND (10/18/2006 8:00 AM EST) Anatomical Region Laterality Modality Other 10/18/2006 8:00 AM EST Narrative 10/18/2006 9:36 AM EST [facility] Upper GI series on 10/18/2006. 1. History- [...] other abnormality in the upper gastroenteric tract. Hydrometer Calibrator- LYDIA FREGOSO Reading Radiologist- KAREN REYES MD Released Date Time- 10/18/06 1502 Procedure Note Karen Reyes - 01/18/2010 [facility] Upper GI series on 10/18/2006. 1. History- [...] other abnormality in the upper gastroenteric tract. Hydrometer CalibratorDenzel Garcia Radiologist- KAREN REYES MD Released Date Time- 10/18/06 1502 R Evangelista Infante [facility] Fin al Result * MM [...] compared with prior studies. IMPRESSION- Benign finding ([id number]-[id number]-5) RECOMMENDATION- Routine screening mammogram in 1 year. * The patient with a palpable abnormality, unexplained by breast imaging, should be managed on clinical basis by the attending physician. * Breast imaging has a false negative rate of 15%. * The patient was notified by mail of the results of this examination. The mammogram was reviewed by a Radiologist and CAD. Hydrometer Calibrator- RALPH Garcia Radiologist- JONATHAN BANSAL MD Released [...] compared with prior studies. IMPRESSION- Benign finding ([id number]-1) RECOMMENDATION- Routine screening mammogram in 1 year. * The patient with a palpable abnormality, unexplained by breast imaging, should be managed on clinical basis by the attending physician. * Breast imaging has a false negative rate of 15%. * The patient was notified by mail of the results of this examination. The mammogram was reviewed by a Radiologist and CAD. Hydrometer Calibrator- RALPH Garcia Radiologist- JONATHAN BANSAL MD Released Date Time- 09/03/06 1422 [facility] Evangelista Mieet [facility] Fin al Result * XR [...] dorsal spine. Impression- No acute cardiopulmonary disease. Hydrometer Calibrator- RADHA SWANSON Reading Radiologist- MAURICE NOONAN MD [...] dorsal spine. Impression- No acute cardiopulmonary disease. Hydrometer Calibrator- RADHA SWANSON Reading Radiologist- MAURICE NOONAN MD Released Date Time- 02/13/06 1654 Michaela Palacio MD [facility] HISTORICAL Fi nal Result Visit Diagnoses Diagnosis [...] specified disorders of liver 06/02/2020 Care Teams Fur Blower Operator Relationship Specialty Start Date End Date Arelis Benita Evangelista [address] [place] [address] PCP - General 07/10/10 Dennis Mak MD [address] [place] [address] Internal Medicine-Gastroenterology 07/14/13 Michaela Palacio MD [address] [place] [address] Internal Medicine-Rheumatology 02/20/23
--- OUTSIDE RECORDS SUMMARY | 2025-06-14 12:39 | XMS_ITS | Referral Summary ---
Author Organization [facility] Address [address] [place], [place] [address] [address] Care Team Providers Care Gear Keeper Name Role Phone Unavailable Primary Care Provider [...]
--- OUTSIDE RECORDS SUMMARY | 2025-06-14 12:39 | XMS_ITS | Encounter Summary ---
Author Organization [place] [address] Care Team Providers Care Hoop Puncher Name Role Phone Benita Infante Primary Care Provider [phone] Dennis Mak MD Unavailable [phone] Michaela Palacio MD Unavailable [phone] Encounter Details Date Type Department Care Team (Late st Contact Info) Description 08/14/2021 Lab Requisition [facility] [place] [address] Dennis Mak MD [address] [place] [address] Personal history of other malignant [...] Description 08/05/2025 2:00 PM EDT [facility] [address] [place] [address] Michaela Palacio MD [address] [place] [address] documented as of this encounter Procedures Procedure Name Priority Date/Time Associated Diagnosis Comments PATHOLOGY TISSUE REQUEST Routine 08/14/2021 11:00 AM EDT Personal history of other malignant neoplasm of large intestine Polyp of colon documented in this encounter Results * PATHOLOGY TISSUE REQUEST (08/14/2021 11:00 AM EDT) CASE REPORT Surgical Pathology Case: [id number] Authorizing Provider: Dennis Mak MD Collected: 08/14/2021 1100 Ordering Location: [facility] Received: 08/14/2021 1544 Pathologist: Manuel Brito MD Specimen: Large Intestine, Left/Descending Colon 08/15/2021 11:55 AM EDT [facility] FINAL DIAGNOSIS Descending Colon Polyp x 2: - Sessile Serrated Polyps, Negative For High-Grade Dysplasia. 08/15/2021 11:55 AM EDT [facility] at 1155 EDT GROSS DESCRIPTION [...] 08/14/2021 3:52 PM 08/15/2021 11:55 AM EDT [facility] MICROSCOPIC DESCRIPTION Microscopic examination is performed and the findings corroborate the diagnosis. 08/15/2021 11:55 AM EDT [facility] EMBEDDED IMAGES 08/15/2021 11:55 AM EDT [facility] Tissue DESCENDING COLON STRUCTURE / Unknown 08/14/2021 11:00 AM EDT 08/14/2021 3:44 PM EDT Dennis Mak MD PATHOLOGY ORDERABLES Final Result [facility] [address] [place] [address] [id number] documented in this encounter Visit Diagnoses Diagnosis Personal history of other malignant neoplasm of large intestine Polyp of colon Benign neoplasm of colon documented in this encounter Care Teams Hoop Puncher Relationship Specialty Start Date End Date Benita Infante [address] [place] [address] PCP - General 07/10/10 Dennis Mak MD [address] [place] [address] Internal Medicine-Gastroenterology 07/14/13 Michaela Palacio MD [address] [place] [address] Internal Medicine-Rheumatology 02/20/23 documented as of this encounter
--- OUTSIDE RECORDS SUMMARY | 2025-06-14 12:39 | XMS_ITS | Clinical Summary ---
Author Organization [facility] Address [facility] [place] [address] Care Team Providers Care E Business Project Manager Name Role Phone Unavailable Primary Care Provider [...]
--- NOTE | 2025-06-14 13:11 | XR_ITS ---
FINAL REPORT CLINICAL HISTORY: SCREENING COMPARISON: 05/20/2024 FINDINGS: Using L1-4, the bone mineral density of the spine is 0.894 g/cm2, corresponding to T-score of -1.4, consistent with osteopenia. Previously was 0.927 with a T-score of -1.1. Using the left forearm, the bone mineral density of 1/3 is 0.503 g/cm2, corresponding to a T-score of -3.2, consistent with osteoporosis. Previous right forearm 1/3 score was 0.454 with a T-score of -4.0. NOTE: T-score: Standard deviation compared with peak bone mass of young adult mean. *Following the recommendations of the International Society of Bone densitometry, classification of hip BMD is based on the lower of two T-scores; total hip or femoral neck. IMPRESSION: Diminished bone mineral density consistent with osteoporosis of the left forearm and osteopenia of the lumbar spine. Reviewed, Interpreted and Dictated by Odilon Akbar MD Transcribed by Victorina Key Authenticated and [facility]
== END 2025-06-14 23:59 | disposition home or self-care (01) ==
LOC: RAD 12:36
PROVIDERS: PCP Family Medicine; Visit Provider Physician Assistant
DX: Z13.820 Encounter for screening for osteoporosis (principal); M81.0 Age-related osteoporosis without current pathological fracture
CPT/HCPCS: 77080

== ENCOUNTER 2025-06-22 11:57 | Outpatient (CLI) | payer MEDICARE, MEDICAID, SELFPAY ==
--- OUTSIDE RECORDS SUMMARY | 2025-06-22 11:59 | XMS_ITS | Encounter Summary ---
Author Organization [place] [address] Care Team Providers Care Referral Specialist Name Role Phone Benita Infante Primary Care Provider [phone] Dennis Mak MD Unavailable [phone] Michaela Palacio MD Unavailable [phone] Encounter Details Date Type Department Care Team (Late st Contact Info) Description 04/15/2020 [facility] [place] [address] Dennis Mak MD [address] [place] [address] Iron deficiency anemia, unspecified; Diaphragmatic [...] Description 08/05/2025 2:00 PM EDT Office Visit [facility] [address] [place] [address] Michaela Palacio MD [address] [place] [address] documented as of this encounter [...] AM EDT) CASE REPORT Surgical Pathology Case: [id number] Authorizing Provider: Dennis Mak MD Collected: 04/15/2020 1020 Ordering Location: [facility] Received: 04/15/2020 9480 Pathologist: Dontae Scott MD Specimens: A) - Small Intestine, Duodenum B) - Large Intestine, Left/Descending Colon C) - Large Intestine, Rectum D) - Large Intestine, Rectum 04/19/2020 8:33 AM EDT [facility] CLINICAL HISTORY Iron deficiency anemia. A 3 cm mass in the rectosigmoid junction and a 1 cm polyp in the rectum. 04/19/2020 8:33 AM EDT [facility] FINAL DIAGNOSIS A) Duodenum, distal, [...] with endoscopy findings. 04/19/2020 8:33 AM EDT [facility] at 0833 EDT COMMENT Parts C and D were reviewed by additional departmental pathologist with diagnostic agreement.EK Dr. Dennis Mak was notified of this result via [employer] text message on 04/19/2020 at 8:32 am. 04/19/2020 8:33 AM EDT [facility] GROSS DESCRIPTION Part A) Received [...] one cassette. /ZN 04/19/2020 8:33 AM EDT [facility] MICROSCOPIC DESCRIPTION Microscopic examination is performed and the findings corroborate the diagnosis. 04/19/2020 8:33 AM EDT [facility] FLOW CYTOMETRY SUMMARY 04/19/2020 8:33 AM EDT [facility] SPECIAL STAINS 04/19/2020 8:33 AM EDT [facility] EMBEDDED IMAGES 04/19/2020 8:33 AM EDT [facility] Tissue DUODENAL STRUCTURE / Unknown 04/15/2020 [...] Dennis Mak MD PATHOLOGY ORDERABLES Final Result [facility] [address] [place] [address] [place] [address] documented in this encounter Visit Diagnoses Diagnosis Iron deficiency anemia, unspecified Diaphragmatic hernia without obstruction or gangrene Diaphragmatic hernia without mention of obstruction or gangrene Diverticulosis of large intestine without perforation or abscess without bleeding Diverticulosis of colon (without mention of hemorrhage) Polyp of colon Benign neoplasm of colon documented in this encounter Care Teams Referral Specialist Relationship Specialty Start Date End Date Benita Infante [address] [place] [address] PCP - General 07/10/10 Dennis Mak MD [address] [place] [address] [place] [address] Internal Medicine-Gastroenterology 07/14/13 Michaela Palacio MD [address] [place] [address] Internal Medicine-Rheumatology 02/20/23 documented as of this encounter
--- OUTSIDE RECORDS SUMMARY | 2025-06-22 11:59 | XMS_ITS | Encounter Summary ---
Author Organization [place] [address] Care Team Providers Care Liturgical Music Director Name Role Phone Benita Infante Primary Care Provider [phone] Dennis Mak MD Unavailable [phone] Michaela Palacio MD Unavailable Encounter Details Date Type Department Care Team (Late st Contact Info) Description 04/04/2025 Results Follow-Up [facility] [address] [place] [address] Tim Mcgee MD [address] [place] [address] XR FOOT RIGHT AP LATERAL [...] Description 08/05/2025 2:00 PM EDT Office Visit [facility] [address] [place] [address] Michaela Palacio MD [address] [place] [address] documented as of this encounter Visit Diagnoses Not on filedocumented in this encounter Care Teams Liturgical Music Director Relationship Specialty Start Date End Date Benita Infante [address] [place], [place] [address] PCP - General 07/10/10 Dennis Mak MD [address] [place], [place] [address] Internal Medicine-Gastroenterology 07/14/13 Michaela Palacio MD [address] [place] [address] Internal Medicine-Rheumatology 02/20/23 documented as of this encounter
--- OUTSIDE RECORDS SUMMARY | 2025-06-22 11:59 | XMS_ITS | Encounter Summary ---
Author Organization [facility] Address [facility] [place] [address] Care Team Providers Care Insert Operator Name Role Phone Benita Infante Primary Care Provider [phone] Dennis Mak MD Unavailable [phone] Michaela Palacio MD Unavailable [phone] Encounter Details Date Type Department Care Team (Late st Contact Info) Description 06/02/2020 Orders Only [facility] [place] [address] Manuel Brito MD Social History [...] Description 08/05/2025 2:00 PM EDT Office Visit [facility] [address] [place] [address] Michaela Palacio MD [address] [place] [address] documented as of this encounter [...] MLH1 in formalin-fixed paraffin-embedded tissue sections. A polymerFree For Kids based system was used for detection. MLH1 (Disclaimer) = MMR references ranges are based on Kng[employer]` internal validation, and we recommend cases with equivocal staining be confirmed with microsatellite instability (MSI) testing. MLH1 (Control Statement) = The digitized slide(s) was/were adequate for quantitative image analysis. All controls were reviewed and showed appropriate positive and negative immunoreactivity. MLH1 (Image Analysis Statement) = Whole slide image capture was performed with the Aperio ScanScope and quantitative computer-assisted image analysis using Ulmon software. MSH2 (Intended Use) = Mismatch repair [...] MSH2 in formalin-fixed paraffin-embedded tissue sections. A polymer[employer] For Kids based system was used for detection. MSH6 [...] MSH6 in formalin-fixed paraffin-embedded tissue sections. A polymerFree For Kids based system was used for detection. PMS2 [...] PMS2 in formalin-fixed paraffin-embedded tissue sections. A Project Repat based system was used for detection. [facility] 06/02/2020 1:51 PM EDT Narrative [facility] - 06/13/2020 1:22 PM EDT Requesting Provider: Gonzalez Hollingsworth Specimen = [id number] us Manuel Brito MD PATHOLOGY ORDERABLES Final Res ult [facility] [address] [place] [address] documented in this encounter Visit Diagnoses Not on filedocumented in this encounter Care Teams Insert Operator Relationship Specialty Start Date End Date Benita Infante [facility] [address] [place] [address] PCP - General 07/10/10 Dennis Mak MD [address] [place] [address] Internal Medicine-Gastroenterology 07/14/13 Michaela Palacio MD [address] [place] [address] Internal Medicine-Rheumatology 02/20/23 documented as of this encounter
--- OUTSIDE RECORDS SUMMARY | 2025-06-22 11:59 | XMS_ITS | Encounter Summary ---
Author Organization [facility] Address [address] [place] [address] Care Team Providers Care Rotary Furnace Operator Name Role Phone Benita Infante Primary Care Provider [phone] Dennis Mak MD Unavailable [phone] Michaela Palacio MD Unavailable [phone] Encounter Details Date Type Department Care Team (Latest Contact Info) Description 02/21/2025 Results Follow-Up [facility] [address] [place] [address] Michaela Palacio MD [address] [place] [address] CBC WITH DIFF, SEDIMENTATION RATE [...] 08/05/2025 2:00 PM EDT Office Visit [facility] [address] [place] [address] Michaela Palacio MD [address] [place] [address] documented as of this encounter Visit Diagnoses Not on filedocumented in this encounter Care Teams Rotary Furnace Operator Relationship Specialty Start Date End Date Benita Infante [address] [place], [place] [address] PCP - General 07/10/10 Dennis aMk MD [address] [place], [place] [address] Internal Medicine-Gastroenterology 07/14/13 Michaela Palacio MD [address] [place] [address] Internal Medicine-Rheumatology 02/20/23 documented as of this encounter
--- OUTSIDE RECORDS SUMMARY | 2025-06-22 11:59 | XMS_ITS | Encounter Summary ---
Author Organization [place] [address] Care Team Providers Care Bath Solution Maker Name Role Phone Benita Infante Primary Care Provider [phone] Dennis Mak MD Unavailable [phone] Michaela Palacio MD Unavailable [phone] Encounter Details Date Type Department Care Team (Late st Contact Info) Description 04/06/2025 Treatment [facility] [address] [address] Elizabeth Franklin MA Social History [...] Description 08/05/2025 2:00 PM EDT Office Visit [facility] [address] [place] [address] Michaela Palacio MD [address] [place] [address] documented as of this encounter Visit Diagnoses Not on filedocumented in this encounter Care Teams Bath Solution Maker Relationship Specialty Start Date End Date Benita Infante [address] [place] [address] PCP - General 07/10/10 Dennis Mak MD [address] [place] [address] Internal Medicine-Gastroenterology 07/14/13 Michaela Palacio MD [address] [place] [address] Internal Medicine-Rheumatology 02/20/23 documented as of this encounter
--- OUTSIDE RECORDS SUMMARY | 2025-06-22 11:59 | XMS_ITS | Encounter Summary ---
Author Organization [place] [address] Care Team Providers Care Cooperative Education Coordinator Name Role Phone Benita Infante Primary Care Provider [phone] Dennis Mak MD Unavailable [phone] Michaela Palacio MD Unavailable [phone] Encounter Details Date Type Department Care Team (Late st Contact Info) Description 04/15/2020 Orders Only [facility] [address] [facility] [address] [place] [address] Dennis Mak MD [address] [place] [address] Social History Tobacco Use Types [...] Description 08/05/2025 2:00 PM EDT [facility] [address] [place] [address] Michaela Palacio MD [address] [place] [address] documented as of this encounter Procedures Procedure Name Priority Date/Time Associated Diagnosis Comments [facility] EGD-COLONOSCOPY Routine 04/15/2020 10:20 AM EDT documented in this encounter Results * [facility] EGD-COLONOSCOPY (04/15/2020 10:20 AM EDT) 04/15/2020 10:2 0 AM EDT Impressions [facility] - 04/15/2020 11:24 AM EDT Plan: CT scan chest/abdomen/pelvis with contrast Colonoscopy in 1 year. This section is an excerpt of the full report. us Dennis Mak MD GI PROCEDURE ORDERABLES Fin al Result [facility] [address] [place] [address] documented in this encounter Visit Diagnoses Not on filedocumented in this encounter Care Teams Cooperative Education Coordinator Relationship Specialty Start Date End Date Benita Infante [address] [place] [address] [address] [place] [address] PCP - General 07/10/10 Dennis Mak MD [address] [place] [address] [address] [place], [place] [id number] Internal Medicine-Gastroenterology 07/14/13 [place] [address] [place] [id number] Internal Medicine-Rheumatology 02/20/23 documented as of this encounter
--- OUTSIDE RECORDS SUMMARY | 2025-06-22 11:59 | XMS_ITS | Clinical Summary ---
Author Organization [facility] Address [address] [place], [place] [address] Care Team Providers Care Planisher Name Role Phone Nonstaff, Referring MD Primary Care Provider [phone] Dwain Choi MD Unavailable [phone] Allergies Active Allergy Reactions Criticality Noted [...] series) 2030 Medical Devices Implanted Type Area Material Handler Device Identifier Shelf Expiration Date Model / Serial / Lot Scr Canc Acetab 6.5x40mm Implanted:Qty: 1 on 2013 by Dwain Choi MD at [facility] Left: Hip * J \T\ J DEPUY 12/11/2022 [id number] / / [id number] Head Fem Cocr 10/24 28mm+5 Implanted:Qty: 1 on 2013 by Dwain Choi MD at [facility] Left: Hip * J \T\ J DEPUY 06/10/2016 1365-12-000 / / [id number] Stem Fem Std Collar Corail 11 Implanted:Qty: 1 on 2013 by Dwain Choi MD at [facility] Left: Hip * J \T\ J DEPUY [id number] / / [id number] Eliminator [place] H Pos Stop Implanted:Qty: 1 on 2013 by Dwain Choi MD at [facility] Left: Hip * J \T\ J DEPUY 11/10/2022 [id number] / / [id number] Cup Acetab Sector 50mm Implanted:Qty: 1 on 2013 by Dwain Choi MD at [facility] Left: Hip * J \T\ J DEPUY 12/11/2022 1217-22-050 / / [id number] [employer] Altrx Polyethylene Acetabular Liner Neutral 28mm Id X 50mm Od Implanted:Qty: 1 on 2013 by Dwain Choi MD at [facility] Left: Hip * USE JJ DEPU 05/10/2016 1221-28-050 / / [id number] Hip Total Con Tier 2 Depuy Implanted:Qty: 1 on 2013 by Dwain Choi MD at [facility] Left: Hip * J \T\ J DEPUY HIPS TIER 2 / / Insurance AETNA AETNA Advance Directives For more information, please contact: [phone] * Full Code (Latest Code Status on File) Date Activated Date Inactivated Comments 2013 3:09 PM 01/24/2013 10:13 PM Care Teams Planisher Relationship Specialty [place] [address] [place] [address] PCP - General Family Medicine 01/08/13 Dwain Choi MD [address] [place], [place] [address] Orthopedic Surgery 11/18/22
--- OUTSIDE RECORDS SUMMARY | 2025-06-22 12:00 | XMS_ITS | Continuity of Care Document ---
Author Organization [facility] Address [address] [place] [address] Phone Care Team Providers Care Business Segment Manager Name Role Phone Benita Infante Primary Care Provider [phone] Dennis Mak MD Unavailable [phone] Michaela Palacio MD Unavailable [phone] Encounters Date Type Department Care Team Description 04/06/2025 Orders Only [facility] [address] [address] Lidia Emanuel MA 04/06/2025 Orders Only [facility] [address] [address] Con Farris DO 04/06/2025 Telephone [facility] [address] [address] Elizabeth Franklin MA Medication Management 04/06/2025 Treatment [facility] [address] [address] Elizabeth Franklin MA 04/05/2025 Telephone [facility] [address] [address] [address] [place] [address] Catina Acosta NievesSTEVE dodson Results 04/04/2025 Results Follow-Up [address] [place] [address] Tim Mcgee MD XR FOOT RIGHT AP LATERAL AND OBLIQUE 04/04/2025 5:15 PM EDT - 04/04/2025 11:59 PM EDT Hospital Encounter [facility] [address] [place] [address] Acute right ankle pain; Foot pain, right Discharge Disposition: Home or Self Care 04/04/2025 4:15 PM EDT Office Visit [address] [place] [address] Tim Mcgee MD Acute right ankle pain (Primary Dx); Foot pain, right; Acute non-recurrent maxillary sinusitis 03/09/2025 Telephone [facility] [address] [place] [address] Michaela Palacio MD Medication Management (Xeljanz) 02/21/2025 Results Follow-Up [facility] [address] [place] [address] Michaela Palacio MD CBC WITH DIFF, SEDIMENTATION RATE AUTOMATED, C-REACTIVE PROTEIN, Additional followed-up results: 3 02/19/2025 11:40 AM EDT - 02/19/2025 11:59 PM EDT Hospital Encounter [facility] [address] [place] [address] Rheumatoid arthritis of multiple sites 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 (HCC); Drug therapy Discharge Disposition: Home or Self Care 02/08/2025 Refill [facility] [address] [place] [address] Michaela Palacio MD Medication Refill 02/04/2025 Telephone [facility] [address] [place] [address] Michaela Palacio MD Medication Management (Xeljanz) 02/04/2025 2:00 PM EDT Office Visit [facility] [address] [place] [address] Michaela Palacio MD Rheumatoid arthritis of multiple sites 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 (HCC) (Primary Dx); Drug therapy; Primary generalized (osteo)arthritis; Fibromyalgia 01/26/2025 Refill [facility] [address] [place] [address] Michaela Palacio MD Medication Refill 01/18/2025 Telephone [facility] [address] [place] [address] Michaela Palacio MD Medication Management (Xeljanz) 12/31/2024 Refill [facility] [address] [place] [address] Michaela Palacio MD Medication Refill 09/18/2024 Refill [facility] [address] [place] [address] Michaela Palacio MD Medication Refill 09/03/2024 Refill [facility] [address] [place] [address] Michaela Palacio MD Medication Refill 08/10/2024 2:00 PM EDT Office Visit [facility] [address] [place] [address] Michaela Palacio MD Rheumatoid arthritis of multiple sites 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 (HCC) (Primary Dx); Drug therapy; Primary generalized (osteo)arthritis; Fibromyalgia 07/01/2024 Refill [facility] [address] [place] [address] Michaela Palacio MD Medication Refill 06/17/2024 Refill [facility] [address] [place] [address] Michaela Palacio MD Medication Refill 04/16/2024 Refill [facility] [address] [place] [address] Michaela Palacio MD Medication Refill 04/10/2024 Telephone [facility] ED [address] [facility] [place] [address] Lisa Mora, [facility] Results (/) 04/02/2024 1:09 PM EDT - 04/02/2024 11:59 PM EDT Hospital Encounter [facility] [address] [facility] [place] [address] Rashad Timmons PA-C Lung nodule Discharge Disposition: Home or Self Care 02/01/2024 Refill [facility] [address] [place] [address] Michaela Palacio MD Medication Refill 01/03/2024 Orders Only [facility] [address] [facility] [place] [address] Rashad Timmons PA-C Lung nodule (Primary Dx) 01/02/2024 2:00 PM EST Office Visit [facility] [address] [place] [address] Michaela Palacio MD Rheumatoid arthritis of multiple sites 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 (HCC) (Primary Dx); Drug therapy; Primary generalized (osteo)arthritis; Fibromyalgia 12/27/2023 2:01 PM EST - 12/27/2023 11:59 PM EST Hospital Encounter [facility] [place] [address] Rashad Timmons PA-C Personal history of colon cancer Discharge Disposition: Home or Self Care 12/19/2023 Telephone [facility] [address] [place] [address] Michaela Palacio MD Medication Management 12/12/2023 Orders Only [facility] [address] [place] [address] Michaela Palacio MD Rheumatoid arthritis of multiple sites 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 (HCC) (Primary Dx); Drug therapy 12/12/2023 Telephone [facility] [address] [place] [address] Michaela Palacio MD Medication Management 12/05/2023 Orders Only [facility] [address] [place] [address] Michaela Palacio MD 12/05/2023 Telephone [facility] [address] [place] [address] Michaela aPlacio MD Medication Management 11/25/2023 Telephone [facility] [address] [place] [address] Jose Guardado, DPM Other (Lapiplasty procedure/) 11/19/2023 Refill [facility] [address] [place] [address] Daily Bravo MA Medication Refill 09/09/2023 Refill [facility] [address] [place] [address] Chio Meraz MA Medication Refill 09/04/2023 Telephone [facility] [address] [place] [address] Michaela Palacio MD Medication Refill 09/03/2023 Refill [facility] [address] [place] [address] Michaela Palacio MD Medication Refill 09/03/2023 9:54 AM EDT - 09/03/2023 11:59 PM EDT Hospital Encounter [facility] [place] [address] Rashad Timmons PA-C Personal history of colon cancer (Primary Dx); Urinary frequency Discharge Disposition: Home or Self Care 08/02/2023 2:53 PM EDT Anesthesia Event [facility] [place] [address] Reza Sky, [place] Joseph, MORGAN 08/02/2023 Travel 08/02/2023 10:57 AM EDT - 08/02/2023 4:58 PM EDT Emergency [facility] [address] [place] [address] Rip Meyer MD Food impaction of esophagus, initial encounter (Primary Dx) 08/02/2023 Telephone [facility] [address], 3RD [place] [address] Dennis Mak MD Dysphagia 06/27/2023 2:40 PM EDT Office Visit [facility] [address] [place] [address] Michaela Palacio MD Rheumatoid arthritis of multiple sites 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 (HCC) (Primary Dx); Primary generalized (osteo)arthritis; Fibromyalgia; Drug therapy 06/12/2023 Refill [facility] [address] [place] [address] Chio Meraz MA Medication Refill 05/16/2023 Travel 05/16/2023 1:48 PM EDT - 05/16/2023 11:59 PM EDT Hospital Encounter [facility] Mammography [address] [address] Benita Infante Visit for screening mammogram Discharge Disposition: Home or Self Care 02/21/2023 2:40 PM EDT Office Visit [facility] [address] [place] [address] Michaela Palacio MD Rheumatoid arthritis of multiple sites 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 (HCC) (Primary Dx); Primary generalized (osteo)arthritis; Fibromyalgia 01/29/2023 10:00 AM EDT Office Visit [facility] [address] [facility] [place] [address] Rashad Timmons PA-C History of cancer of rectosigmoid junction (Primary Dx) 12/25/2022 Travel 12/25/2022 4:18 PM EST - 12/25/2022 11:59 PM EST Hospital Encounter [address] [address] Rashad Timmons PA-C Lung nodule Discharge Disposition: Home or Self Care 12/20/2022 Abstract [facility] [address] [place] [address] Michaela Palacio MD 12/20/2022 Orders Only [facility] [address] [place] [address] Michaela Palacio MD 12/10/2022 Orders Only [facility] [address] [place] [address] Michaela Palacio MD 09/10/2022 Travel 09/10/2022 2:36 PM EDT - 09/10/2022 11:59 PM EDT Hospital Encounter [facility] [address] [place] [id number] Personal history of colon cancer Discharge Disposition: Home or Self Care 09/09/2022 Orders Only [facility] [address] [facility] [address] [place] [address] Rashad Timmons PA-C Lung nodule (Primary Dx) 08/21/2022 10:15 AM EDT Office Visit [facility] [address] [facility] [address] [place] [address] Rashad Timmons PA-C Personal history of colon cancer (Primary Dx); Abnormal CT scan, lung 08/10/2022 Telephone [facility] E[facility] VAS ATTN: Appointments in this department are performed at various locations in the community on our Cardiovascular mobile health unit. You can look online to verify your site or call [phone] [address] Cherrie Begum, LIBRA Results 07/26/2022 Travel 07/26/2022 10:08 AM EDT - 07/26/2022 11:59 PM EDT Hospital Encounter [facility] [address] [address] Rashad Timmons PA-C History of cancer of rectosigmoid junction Discharge Disposition: Home or Self Care 06/22/2022 Telephone [facility] [address] [facility] [address] [place] [address] Colon Brianna Mar RMA Appointment Needed 03/05/2022 Travel 03/05/2022 10:14 AM EDT - 03/05/2022 11:59 PM EDT Hospital Encounter [facility] Mammography [address] [place] [address] Benita Infante Encounter for screening mammogram for malignant neoplasm of breast Discharge Disposition: Home or Self Care 12/21/2021 Travel 12/21/2021 10:35 AM EST - 12/21/2021 11:59 PM EST Hospital Encounter [facility] [place] [address] Personal history of malignant neoplasm of rectum, rectosigmoid junction, and anus Discharge Disposition: Home or Self Care 12/11/2021 3:45 PM EST Office Visit [facility] [address] [place] [address] [place] [address] Rashad Timmons PA-C History of cancer of rectosigmoid junction (Primary Dx) 08/17/2021 Travel 08/17/2021 11:41 AM EDT - 08/17/2021 11:59 PM EDT Hospital Encounter [facility] [address] [place] [address] Judy Gallego APRN Varicose veins of right lower extremity with edema Discharge Disposition: Home or Self Care 08/14/2021 Lab Requisition [facility] [place] [address] Dennis Mak MD Personal history of other malignant neoplasm of large intestine; Polyp of colon 08/14/2021 Orders Only [facility] [address] [facility] [address] [place] [address] Dennis Mak MD 08/11/2021 Travel 08/11/2021 1:35 PM EDT - 08/11/2021 11:59 PM EDT Hospital Encounter [facility] [address] [place] [address] Encounter for screening for COVID-19 Discharge Disposition: Home or Self Care 07/13/2021 1:49 PM EDT - 07/13/2021 11:59 PM EDT Hospital Encounter [facility] [place] [address] [facility] [address] [place] [address] History of colon cancer Discharge Disposition: Home or Self Care 07/13/2021 Travel 07/13/2021 12:30 PM EDT Office Visit [facility] [address] [place] [address] Dennis Mak MD History of colon cancer (Primary Dx) 05/05/2021 Travel 05/05/2021 3:45 PM EDT - 05/05/2021 11:59 PM EDT Hospital Encounter [facility] [address] [address] Left hand pain Discharge Disposition: Home or Self Care 05/03/2021 Travel 05/03/2021 2:00 PM EDT Office Visit [facility] [address] [facility] [address] [place] [address] Rashad Timmons PA-C Personal history of malignant neoplasm of rectum, rectosigmoid junction, and anus (Primary Dx) 04/27/2021 Telephone [facility]TT [address] [place] [address] Gonzalez Vargas MD Other 04/26/2021 Travel 04/26/2021 1:34 PM EDT - 04/26/2021 11:59 PM EDT Hospital Encounter [facility] [place] [address] Rashad Timmons PA-C Personal history of malignant neoplasm of rectum, rectosigmoid junction, and anus Discharge Disposition: Home or Self Care 04/12/2021 Telephone [facility] [address] [place] [address] Dennis Mak MD Colonoscopy 02/09/2021 Travel 02/09/2021 10:55 AM EDT - 02/09/2021 11:59 PM EDT Hospital Encounter [facility] [address] [place] [id number] Cristi Sosa MD Breast asymmetry Discharge Disposition: Home or Self Care 02/06/2021 Travel 10/07/2020 Travel 10/04/2020 Telephone [facility] [address] [place] [address] Lucila Rodgers RMA Orders 09/28/2020 3:04 PM EST - 09/28/2020 11:59 PM EST Hospital Encounter [facility] [address] [place] [address] Personal history of malignant neoplasm of rectum, rectosigmoid junction, and anus Discharge Disposition: Home or Self Care 09/28/2020 Travel 09/28/2020 1:40 PM EST Office Visit [facility] [address] [facility] [address] [place] [phone] Rashad Timmons PA-C Personal history of malignant neoplasm of rectum, rectosigmoid junction, and anus (Primary Dx) 09/26/2020 Travel 08/10/2020 Travel 08/02/2020 Travel 08/02/2020 1:50 PM EDT Office Visit [facility] NPTFTT [address] [place] [address] Cristi Sosa MD Chronic RLQ pain (Primary Dx); Rectosigmoid cancer (HCC) 07/28/2020 10:07 AM EDT - 07/28/2020 11:59 PM EDT Hospital Encounter [facility] [place] [place] [address] Right lower quadrant abdominal pain; Urinary frequency Discharge Disposition: Home or Self Care 07/28/2020 Travel 07/25/2020 Travel 07/22/2020 Travel 07/22/2020 2:00 PM EDT Office Visit [facility] [address] [facility] [address] [place] [address] Rashad Timmons PA-C Right lower quadrant abdominal pain (Primary Dx); Follow-up examination following surgery; Urinary frequency; History of uterine prolapse 07/14/2020 Telephone [facility] [address] [facility] [address] [place] [address] Gonzalez Vargas MD Advice Only 06/22/2020 Telephone Adult Med [address] [facility] [address] [place] [address] Rashad Timmons PA-C Results 06/21/2020 10:20 AM EDT - 06/21/2020 11:59 PM EDT Hospital Encounter [facility] [address] [address] Postop check Discharge Disposition: Home or Self Care 06/21/2020 Travel 06/21/2020 9:20 AM EDT Office Visit [facility] [address] [facility] [address] [place] [address] Gonzalez Vargas MD Postop check (Primary Dx); Rectosigmoid cancer (HCC) 06/02/2020 5:29 AM EDT - 06/04/2020 6:25 PM EDT Hospital Encounter [facility] [address] [place] [address] [place] [address] Gonzalez Vargas MD Rectosigmoid cancer (HCC); Liver lesion; Rectosigmoid cancer (HCC); Liver lesion Discharge Disposition: Home or Self Care 06/02/2020 Orders Only [facility] [place] [address] Manuel Brito MD 06/02/2020 7:30 AM EDT - 06/02/2020 2:25 PM EDT [facility] [place] [address] Gonzalez [facility]argas MD [facility] LAP[facility] LOW ANTERIOR COLON RESECTION 06/02/2020 7:36 AM EDT Anesthesia Event [facility] Formerly named [facility] [place] [address] Warren Hernandez MD Powell, Jeanne, ADHESIVE SPRAYER 06/01/2020 Telephone [facility] [address] [facility] [address] [place] [address] Nelia Harding RMA Prior Authorization; Surgery 05/31/2020 Travel 05/31/2020 9:00 AM EDT Office Visit [facility] [address] [facility] [address] [place] [address] Gonzalez Vargas MD Rectosigmoid cancer (HCC) (Primary Dx) 05/29/2020 Travel 05/29/2020 1:15 PM EDT - 05/29/2020 11:59 PM EDT Hospital Encounter [facility] [place] [address] [place] [address] 12 Covid19, [facility] Ds Pre-op testing; Encounter for laboratory testing for COVID-19 virus Discharge Disposition: Home or Self Care 05/20/2020 12:05 PM EDT - 05/20/2020 11:59 PM EDT Hospital Encounter [facility] [place] [address] Gaby Garcia APRN Discharge Disposition: Home or Self Care 05/20/2020 Travel 05/20/2020 10:45 AM EDT - 05/20/2020 12:04 PM EDT Hospital Encounter [facility] PRE-ADMIT [place] [address] Preop testing (Primary Dx); Rectosigmoid cancer (HCC) Discharge Disposition: Home or Self Care 05/16/2020 Telephone [facility] [address] [facility] [address] [place] [address] Dennis Mak MD Other 05/13/2020 Travel 05/12/2020 Telephone [facility] S[facility] [address] [facility] [address] [place] [address] Mari Hyatt MA Surgery 05/10/2020 Orders Only [facility] Surg [facility] [address] [facility] [address] [place] [address] Nelia Harding [facility] Rectosigmoid cancer (HCC) (Primary Dx); Liver lesion 05/09/2020 Telephone [facility] S[facility] [address] [facility] [address] [place] [address] Marion Curtis, A Surgery 05/06/2020 Travel 05/06/2020 11:58 AM EDT - 05/06/2020 11:59 PM EDT Hospital Encounter [facility] [place] [address] Discharge Disposition: Home or Self Care 05/05/2020 Travel 04/28/2020 Travel 04/28/2020 8:15 AM EDT - 04/28/2020 11:59 PM EDT Hospital Encounter [facility] [place] [address] Rashad Timmons PA-C Rectosigmoid cancer (HCC) Discharge Disposition: Home or Self Care 04/28/2020 8:14 AM EDT Hospital Encounter [facility] PET CT [address] [facility] [address] [place] [address] Rashad Timmons PA-C Rectosigmoid cancer (HCC) Discharge Disposition: Home or Self Care 04/27/2020 Telephone Adult Med [address] [facility] [address] [place] [address] Rashad Timmons PA-C Follow-up 04/27/2020 Travel 04/26/2020 Travel 04/26/2020 3:40 PM EDT Office Visit [facility] S[facility] [address] [facility] [address] [place] [address] Gonzalez Vargas MD Rectosigmoid cancer (HCC) (Primary Dx); Liver lesion 04/20/2020 Travel 04/20/2020 10:33 AM EDT - 04/20/2020 11:59 PM EDT Hospital Encounter [facility] [address] [place] [address] Dennis Mak MD Polyp of colon, unspecified part of colon, unspecified type Discharge Disposition: Home or Self Care 04/19/2020 Travel 04/15/2020 Telephone [facility] [address] [facility] [address] [place] [address] Dennis Mak MD Other 04/15/2020 Lab Requisition [facility] [address] [facility] [place] [address] Dennis Mak MD Iron deficiency anemia, unspecified; Diaphragmatic hernia without obstruction or gangrene; Diverticulosis of large intestine without perforation or abscess without bleeding; Polyp of colon 04/15/2020 Orders Only [facility] [address] [facility] [address] [place] [address] Dennis Mak MD 04/15/2020 Travel 04/12/2020 Travel 04/12/2020 11:40 AM EDT Clinical Support [facility] [address] [facility] [place] [address] Lab, [facility] Cv Encounter for laboratory testing for COVID-19 virus (Primary Dx) 04/11/2020 Telephone [facility] [address] [place] [address] Dennis Mak MD COVID-19 Rapid Testing 04/08/2020 Travel 02/09/2020 Travel 02/04/2020 Telephone [facility] [address] [place] [address] Dennis Mak MD Reschedule (d/t covid 19) 12/21/2019 Telephone [facility] [address] [facility] [address] [place] [address] Dennis Mak MD Other 12/02/2019 11:16 AM EST - 12/02/2019 11:59 PM EST Hospital Encounter [facility] [address] [place] [id number] Ming Santamaria MD Right shoulder pain, unspecified chronicity Discharge Disposition: Home or Self Care 12/02/2019 11:16 AM EST - 12/02/2019 11:59 PM EST Hospital Encounter [facility] [address] [place] [address] Ming Santamaria MD Left shoulder pain, unspecified chronicity Discharge Disposition: Home or Self Care 12/02/2019 11:15 AM EST Hospital Encounter [facility] [address] [place] [address] Ming Santamaria MD Left knee pain, unspecified chronicity Discharge Disposition: Home or Self Care 11/09/2019 Telephone [facility] [address] [facility] [address] [place] [address] Dennis Mak MD Cancellation 09/28/2019 3:30 PM EST - 09/28/2019 11:59 PM EST Hospital Encounter [facility] One [facility] [address], [facility] Iron deficiency anemia, unspecified iron deficiency anemia type Discharge Disposition: Home or Self Care 09/28/2019 2:15 PM EST Office Visit [facility] [address] [facility] [address] [place] [address] Dennis Mak MD Iron deficiency anemia, unspecified iron deficiency anemia type (Primary Dx) 09/22/2019 Telephone [facility] [place] [address] [place] [address] Sydney Connell Scribe Other (Surgery ) 09/22/2019 Telephone [facility] [address] [place] [address] Jasmyne Chapman, ABR-OE Other (powerstep issue) 09/11/2019 12:30 PM EDT - 09/11/2019 11:59 PM EDT Hospital Encounter [facility] [address] [facility] [address] [place], [place] [id number] Cristi Sosa MD Breast mass, right Discharge Disposition: Home or Self Care 09/07/2019 Telephone [facility] NPTT [address] [place] [address] Cristi Sosa MD Other (testing) 09/04/2019 1:00 PM EDT - 09/04/2019 11:59 PM EDT Hospital Encounter [facility] [address] [place] [id number] Cristi Sosa MD Breast mass, right Discharge Disposition: Home or Self Care 09/03/2019 Orders Only [facility] NPTFTT [address] [place] [address] Jeanne Khan RN Breast mass, right (Primary Dx) 09/03/2019 Orders Only [facility] Pod[facility]ry [address] [place] [address] Jose Guardado, MAGUE Hallux valgus of left foot (Primary Dx); Hammer toe of left foot; Exostosis; Rheumatoid arthritis, involving unspecified site, unspecified rheumatoid factor presence (HCC) 09/03/2019 9:40 AM EDT Office Visit [facility] NPTT [address] [place] [address] Cristi Sosa MD Well woman exam (Primary Dx); Encounter for screening mammogram for breast cancer; Encounter for screening colonoscopy; Breast mass, right; FHx: BRCA gene positive 08/28/2019 2:20 PM EDT Ancillary Procedure [facility] Podiatry [address] [place] [address] Jose Guardado, DPM Right foot pain Discharge Disposition: Home or Self Care 08/28/2019 1:35 PM EDT Ancillary Procedure [facility] [address]iat[address] [address] Jose Guardado, DPM Left foot pain Discharge Disposition: Home or Self Care 08/28/2019 1:15 PM EDT Office Visit [facility] Podiatry [address] [address] Jose Guardado, DPMacie Left foot pain (Primary Dx); Hallux valgus of left foot; Right foot pain 06/01/2019 Telephone [facility] Neurology [facility] [address] [place] [address] Vikas Burnham MD Other (Neuropsych testing) 05/19/2019 9:31 AM EDT - 05/20/2019 5:45 PM EDT Hospital Encounter EDG 7D [place] [address] Prakash Viramontes MD Discharge Disposition: Home or Self Care 05/19/2019 12:30 PM EDT - 05/19/2019 1:45 PM EDT Surgery EDG Formerly named [facility] [place] [place] [address] Prakash Viramontes MD TOTAL HIP ARTHROPLASTY/REPLACE MENT-ANTERIOR OR REVISION ANTERIOR (ERICK/LANDY) 05/19/2019 11:52 AM EDT Anesthesia Event EDG Formerly named [facility] [place] [address] Esther Zarate MD Braxton-Brown, Jennifer, APRN 05/07/2019 12:39 PM EDT - 05/07/2019 11:59 PM EDT Hospital Encounter [facility] EKG [facility] [place] [address] Luz Elena Bernard APRN Discharge Disposition: Home or Self Care 05/07/2019 11:52 AM EDT - 05/07/2019 12:38 PM EDT Hospital Encounter EDG LABORATORY [facility] [place] [address] Preop examination (Primary Dx); Post concussion syndrome Discharge Disposition: Home or Self Care 05/07/2019 Travel 05/07/2019 10:30 AM EDT - 05/07/2019 11:51 AM EDT Hospital Encounter EDG PRE-ADMIT TESTING [facility] [place] [address] Encounter for preadmission testing (Primary Dx); Anticoagulation adequate; Preop testing; Primary osteoarthritis of right hip Discharge Disposition: Home or Self Care 05/05/2019 11:00 AM EDT Office Visit [facility] Neurology [facility] [address] [place] [address] Vikas Burnham MD Post concussion syndrome (Primary Dx) 01/28/2019 12:39 PM EDT - 01/28/2019 11:59 PM EDT Hospital Encounter [facility] [address] [place] [address] Ming Santamaria MD Bilateral hip pain Discharge Disposition: Home or Self Care 10/30/2018 2:13 PM EST - 10/30/2018 11:59 PM EST [facility] [address] [place] [address] Ming Santamaria MD Strain of neck muscle, initial encounter; Strain of thoracic region, initial encounter; Strain of lumbar region, initial encounter Discharge Disposition: Home or Self Care 10/30/2018 2:12 PM EST [facility] [address] [address] Ming Santamaria MD Strain of neck muscle, initial encounter; Strain of thoracic region, initial encounter; Strain of lumbar region, initial encounter Discharge Disposition: Home or Self Care 10/30/2018 2:00 PM EST - 10/30/2018 2:11 PM EST Hospital Encounter [facility] MRI [address] [address] Ming Santamaria MD Strain of neck muscle, initial encounter; Strain of thoracic region, initial encounter; Strain of lumbar region, initial encounter Discharge Disposition: Home or Self Care 09/18/2018 12:36 PM EST - 09/18/2018 11:59 PM EST Hospital Encounter [facility] [place] [address] Ming Santamaria MD Traumatic injury of head, sequela Discharge Disposition: Home or Self Care 09/18/2018 12:07 PM EST - 09/18/2018 12:35 PM EST Hospital Encounter EDG NUC [facility] [place] [address] Ming Santamaria MD Discharge Disposition: Home or Self Care 09/18/2018 11:00 AM EST - 09/18/2018 12:06 PM EST Hospital Encounter EDG [facility] [place] [address] Ming Santamaria MD Low back pain, unspecified back pain laterality, unspecified chronicity, with sciatica presence unspecified Discharge Disposition: Home or Self Care 10/30/2016 10:26 AM EST - 10/30/2016 10:29 AM EST Hospital Encounter EDG D-WING XRAY [facility] [place] [address] Cough Discharge Disposition: Home or Self Care 10/30/2016 10:30 AM EST - 10/30/2016 11:59 PM EST Hospital Encounter EDG PFT LAB [facility] [place] [address] Discharge Disposition: Home or Self Care 06/14/2016 2:59 PM EDT - 06/14/2016 11:59 PM EDT [facility] [address] [address] Benita Infante Cervical radiculopathy Discharge Disposition: Home or Self Care 05/16/2016 2:15 PM EDT - 05/16/2016 3:18 PM EDT Hospital Encounter EDG D-WING XRAY [facility] [place] [address] Neck pain Discharge Disposition: Home or Self Care 05/16/2016 3:19 PM EDT - 05/16/2016 11:59 PM EDT Hospital Encounter [place] [facility] [place] [address] Benita Infante Visit for screening Discharge Disposition: Home or Self Care 10/03/2015 1:03 PM EST - 10/03/2015 2:10 PM EST Emergency [place] [facility] [place] [address] Jeremiah Plaza MD Transient elevated blood pressure (Primary Dx) Discharge Disposition: Home or Self Care 05/12/2015 12:48 PM EDT - 05/12/2015 11:59 PM EDT Hospital Encounter [facility] [place] [address] Benita Infante Other screening mammogram Discharge Disposition: Home or Self Care 03/05/2015 9:00 AM EDT - 03/05/2015 11:59 PM EDT Hospital Encounter EDG HOLTER MONITOR [facility] [place] [address] Benita Infante Heart rate slow Discharge Disposition: Home or Self Care 11/29/2014 9:21 AM EST - 11/29/2014 11:59 PM EST Hospital Encounter [facility] Stress Test [facility] [place] [address] Jose Curtis MD Chest pain Discharge Disposition: Home or Self Care 11/29/2014 9:21 AM EST - 11/29/2014 11:59 PM EST Hospital Encounter EDG NUC MED [facility] [place] [address] Jose Curtis MD Chest pain Discharge Disposition: Home or Self Care 11/26/2014 4:00 PM EST - 11/26/2014 11:59 PM EST Hospital Encounter Sander EKG [facility] [address] [facility] Chest pain, unspecified Discharge Disposition: Home or Self Care 09/13/2014 1:30 PM EST - 09/13/2014 11:59 PM EST Hospital Encounter [facility] VASCULAR LAB [address] [place] [address] Javed Curtis MD Leg edema; Leg pain Discharge Disposition: Home or Self Care 10/29/2013 2:01 PM EST - 10/29/2013 11:59 PM EST Hospital Encounter [facility] Mammography [facility] [address] [facility]17 Benita Infante Other screening mammogram Discharge Disposition: Home or Self Care 09/02/2013 10:00 AM EDT - 09/02/2013 11:59 PM EDT Hospital Encounter [facility] XRAY [address] [place] [address] Dennis Mak MD Nausea; Sternum pain; Abdominal pain, acute, epigastric Discharge Disposition: Home or Self Care 08/27/2013 Telephone [facility] [address] [address] Dennis Mak MD Other 08/17/2013 8:00 AM EDT - 08/17/2013 9:15 AM EDT Surgery [facility] PERIOP [address] [place] [address] Moustapha Shaffer, DPMacie BUNIONECTOMY/SIMPLE/ SILVER/OFF SET V 08/17/2013 6:59 AM EDT - 08/17/2013 10:10 AM EDT Hospital Encounter [facility] SAME DAY SURGERY [address] [place] [address] Moustapha Shaffer DPM Discharge Disposition: Home or Self Care 08/12/2013 Orders Only [facility] [address] [address] Dennis Mak MD 08/12/2013 Orders Only [facility] [address] [address] Dennis Mak MD 08/12/2013 Orders Only [facility] Gastro CV [address] [facility] [address] [place] [address] Dennis Mak MD 08/11/2013 9:00 AM EDT - 08/11/2013 11:59 PM EDT Hospital Encounter [facility] PRE-ADMIT TESTING [address] [place] [address] Pat, Ftt Discharge Disposition: Home or Self Care 07/14/2013 1:45 PM EDT - 07/14/2013 11:59 PM EDT Hospital Encounter EDG D-WING [place] [address] Bunion Discharge Disposition: Home or Self Care 07/14/2013 3:10 PM EDT Office Visit [facility] CV [address]51 [facility] [address] [place] [address] Dennis Mak MD Dysphagia (Primary Dx); Family history of colon cancer 07/10/2013 Telephone [facility] CV 651 [facility] [address] [place] [address] Dennis Mak MD Other (returning call) 07/16/2012 5:42 AM EDT - 07/16/2012 11:59 PM EDT Hospital Encounter Mobile Mammography Other Location View online schedule for mobile van location [phone] Benita Infante Other screening mammogram Discharge Disposition: Home or Self Care 07/03/2012 11:33 AM EDT - 07/03/2012 11:59 PM EDT Hospital Encounter [facility] MRI [address] [place] [address] Harvey Ba, CRYSTAL Pain in joint, other specified sites Discharge Disposition: Home or Self Care 08/02/2010 9:56 AM EDT - 08/02/2010 11:59 PM EDT Hospital Encounter [facility] [place] [address] Benita Infante Other screening mammogram Discharge [...] 600 mg by mouth daily. Calcium Active Fnp-Vufpnjmyqg-F cetaminop-Caf 62-657-25-30 mg Oral Capsule Take by mouth. Ac [...] Active fluticasone propionate (FLONASE) 50 mcg/actuation Nasl [place], Suspension 1 [place] by Nasal route daily. 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 Overview (05/10/2020): Added automatically from request for surgery [id number] Liver lesion 05/10/2020 Overview (05/10/2020): Added automatically from request for surgery [id number] Hallux valgus of left foot 09/03/2019 Overview (09/03/2019): Added automatically from request for surgery [id number] Hammer toe of left foot 09/03/2019 Overview (09/03/2019): Added automatically from request for surgery [id number] Exostosis 09/03/2019 Overview (09/03/2019): Added automatically from request for surgery [id number] [facility] 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 09/03/2019 Overview (09/03/2019): Added automatically from request for surgery [id number] Osteoarthritis of right hip 05/19/2019 Polypharmacy 05/19/2019 [...] Sister Social History Smoking Status as of 06/22/2025 Tobacco Use Types Packs/Day Years Used Date [...] Visit [facility] [address] [place] [address] Michaela Palacio MD [address] [place] [address] Medical Devices Implanted Type Area Phone Circuit Operator Device Identifier Shelf Expiration Date Model / Serial / Lot Shell Acetabular Trident Ii Tritanium D 50mm Screwhole Clust - [id number] Implanted:Qty: 1 on 05/19/2019 by Prakash Viramontes MD at [facility] Right: Hip ERICK:ORTHOPEDI CS 01/08/2024 [id number] / / [id number] Insert Trident X 3 0 Degree 36mm D - [id number] Implanted:Qty: 1 on 05/19/2019 by Prakash Viramontes MD at [facility] Right: Hip ERICK:ORTHOPEDI CS 03/05/2024 [id number] / / [id number] 6.5mm Low Profile Hex Screw 30mm - [id number] Implanted:Qty: 1 on 05/19/2019 by Prakash Viramontes MD at [facility] Right: Hip ERICK:ORTHOPEDI CS 04/06/2024 [id number] / / [id number] Size 5 Accolade Ii 127 Deg - [id number] Implanted:Qty: 1 on 05/19/2019 by Prakash Viramontes MD at [facility] Right: Hip ERICK:ORTHOPEDI 04/04/2024 [id number] / / [id number] Head Fem -5mm Ofst Tpr 36mm Hip Blx D V40 Strl - [id number] Implanted:Qty: 1 on 05/19/2019 by Prakash Viramontes MD at [facility] Right: Hip ERICK:ORTHOPEDI 06/19/2023 [id number] / / [id number] Procedures Procedure Name Priority Date/Time Associated Diagnosis [...] 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 (HCC) Drug therapy CT VILAM LUNG NODULE FOLLOW UP Routine 04/02/2024 1:16 [...] 09/04/2019 1:32 PM EDT 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 On Xeljanz regimen weekly - does not takeconsistently on any particular day. Also takes random dose of mg up to 3 x monthly for [...] LEFT FOOT ; Surgeon: Moustapha Shaffer DPM;Location: [facility] MAIN OR; Service: Orthopedics COLONOSCOPY FOOT SURGERY right bunioun HAND SURGERY right HIP ARTHROPLASTY Right 05/19/2019 right hip total replacement anterior; Surgeon: Prakash Viramontes MD;Location: [facility] OR; Service: Orthopedics HIP SURGERY left replacement JOINT REPLACEMENT LEFT HIP KNEE SURGERY lt knee arthroscopy TUBAL LIGATION UPPER GASTROINTESTINAL ENDOSCOPY Medications Prior to Admission Medication Sig Dispense Refill Last Dose amLODIPine (NORVASC) 2.5 mg Oral Tablet Take 10 mg by mouth daily.UNSRUE OF DOSAGE 05/18/2019 at 1900 [DISCONTINUED] ftgbuxd-pgtylmwowzsub-bgkjsscn (EXCEDRIN EXTRA STRENGTH)250-250-65 mg Oral Tablet Take 1 Tab by mouth every 6 hours as needed forPain. Taking at Unknown time B-complex with vitamin C (VITAMIN B COMPLEX-C ORAL) Take by mouth.05/18/2019 at 1900 CANNABIDIOL, CBD, EXTRACT ORAL Take 1,500 mg by mouth. 05/18/2019 [id number] cetirizine (ZYRTEC) 10 mg Oral Tablet Take [...] Take 450 Units by mouth daily. 05/18/2019 [id number] lactobacillus rhamnosus, GG, (CULTURELLE) 10 billion cell [...] valgus (acquired) Special Needs DR SHAFFER CPT; 55703 LEFT FOOT 08/07/13 @ 1020 Left message [...] Routine 11/05/2006 10:00 AM EST FL STOMACH/ESOPHAGUS PIN SETTER Routine 006 8:00 AM EST WW MAMMO [...] 5:43 PM CLINICAL HISTORY: M79.671-Pain in right itpv-GJN-93-CM COMPARISON: None. PROCEDURE COMMENTS: XR FOOT RIGHT AP LATERAL AND OBLIQUE FINDINGS: No definite acute fracture or malalignment. First MTP arthrodesis with screws. Chronic appearing deformity of the third proximal phalanx. Mild soft tissue edema. Procedure Note Jeremiah Welch MD - 04/04/2025 XR FOOT RIGHT AP LATERAL AND OBLIQUE, 04/04/2025 5:43 PM CLINICAL HISTORY: M79.671-Pain in right gvjm-YGI-36-CM COMPARISON: None. PROCEDURE COMMENTS: XR FOOT RIGHT [...] in right ankle and joints of right zalv-POP-13-CM COMPARISON: None. PROCEDURE COMMENTS: XR ANKLE RIGHT AP LATERAL AND OBLIQUE FINDINGS: No acute fracture or malalignment. Soft tissue swelling around the ankle greatest anteromedially. Procedure Note Jeremiah Welch MD - 04/04/2025 XR ANKLE RIGHT AP LATERAL AND OBLIQUE, 04/04/2025 5:43 PM CLINICAL HISTORY: M25.571-Pain in right ankle and joints of right idhb-RVF-29-CM COMPARISON: None. PROCEDURE COMMENTS: XR ANKLE RIGHT [...] TB GOLD (02/19/2025 11:47 AM EDT) Pathologist [facility] Quantiferon-TB Gold in Tube Negative Negative 02/20/2025 [...] IU/mL 02/20/2025 11:18 AM EDT [facility] Blood VENOUS BLOOD / Unknown Venipuncture / Unknown 02/19/2025 11:47 AM EDT 02/19/2025 11:47 AM EDT Narrative [facility] - 02/20/2025 11:18 AM EDT Interferon [...] ORDERABLES Final Re sult [facility] [address] , [place] [address] * SEDIMENTATION RATE AUTOMATED (02/19/2025 11:47 AM EDT) Sed Rate 5 0 - 30 mm/hr 02/19/2025 4:06 PM EDT [facility] Blood VENOUS BLOOD / Unknown Venipuncture / Unknown 02/19/2025 11:47 AM EDT 02/19/2025 11:47 AM EDT us Michaela Palacio MD HEMATOLOGY ORDERABLES Final Re sult Performing Organization Address [facility] Co de Phone Number [facility], [facility] [address] , [address] [place], [place] [id number] * (ABNORMAL) CBC WITH DIFF (02/19/2025 11:47 [...] 02/19/2025 4:06 PM EDT [facility] Platelet 292 155 - 369 x10(3)/[facility] 02/19/2025 4:06 PM EDT [facility] MPV 10.5 8.8 - 12.5 fL 02/19/2025 4:06 PM EDT [facility] Neut Percent 67.0 % 02/19/2025 4:06 PM EDT [facility] Comment:Neutrophils equals s egs plus bands Imm Gran% 0.4 % 02/19/2025 4:06 PM EDT [facility] Comment:Automated count of m etamyelocytes, myelocytes and promyelocytes. Lymph Percent 24.1 % 02/19/2025 4:06 PM EDT [facility] [place] Percent 6.7 % 02/19/2025 4:06 PM EDT [facility] Eos Percent 1.3 % 02/19/2025 4:06 PM EDT [facility], [facility] Baso Percent 0.5 % 02/19/2025 4:06 PM EDT [facility] Neut # 3.7 1.6 - 6.1 x10(3)/[facility] 02/19/2025 4:06 PM EDT [facility], [facility] Comment:Neutrophils equals s egs plus bands IMMGRAN# 0.0 0.0 - 0.1 x10(3)/[facility] 02/19/2025 4:06 PM EDT [facility], [facility] Comment:Automated count of m etamyelocytes, myelocytes and promyelocytes. An absolute IG <0.1 is reported as 0.0. Lymph # 1.3 1.2 - 3.9 x10(3)/[facility] 02/19/2025 4:06 PM EDT [facility] [place] # 0.4 0.3 - 0.9 x10(3)/[facility] 02/19/2025 4:06 PM EDT [facility] Eos# 0.1 0.0 - 0.5 x10(3)/[facility] 02/19/2025 4:06 PM EDT [facility] Baso # 0.0 0.0 - 0.1 x10(3)/[facility] 02/19/2025 4:06 PM EDT [facility], [facility] Blood VENOUS BLOOD / Unknown Venipuncture / Unknown 02/19/2025 11:47 AM EDT 02/19/2025 11:47 AM EDT Result Abdiaziz Palacio MD HEMATOLOGY ORDERABLES Final Re sult Performing Organization Address [facility] Co de Phone Number [facility] [employer] [address] , [place] [address] * C-REACTIVE PROTEIN (02/19/2025 11:47 AM EDT) CRP <3.00 <=5.00 mg/L 02/19/2025 8:03 PM EDT [facility] [employer] [facility] Blood VENOUS BLOOD / Unknown Venipuncture / Unknown 02/19/2025 11:47 AM EDT 02/19/2025 11:47 AM EDT Result Abdiaziz Palacio MD CHEMISTRY ORDERABLES Final Res ult Performing Organization Address [facility] Phone Number [facility] [employer] [address] , [place] [address] * CREATININE (02/19/2025 11:47 AM EDT) Creatinine 0.77 0.51 - 1.30 mg/dL 02/19/2025 8:03 PM EDT [facility] [employer] [facility] eGFR (CKD-EPIcr 2020) 83 >=60 mL/min/1.7 3 m2 02/19/2025 8:03 PM EDT [facility] [employer] [facility] Comment:Estimated GFR was ca lculated using the CKD-EPIcr (2020) equation refit without race. The equation is recommended by the National Kidney Foundation - [place] [employer] of Nephrology Task Force. Blood VENOUS BLOOD / Unknown Venipuncture / Unknown 02/19/2025 11:47 AM EDT 02/19/2025 11:47 AM EDT Result Abdiaziz Palacio MD CHEMISTRY ORDERABLES Final Res ult Performing Organization Address [facility] Co de Phone Number [facility], [address] , [place] [address] * HEPATIC FUNCTION PANEL (02/19/2025 11:47 AM EDT) Total Protein 6.7 6.4 - 8.3 gm/dL 02/19/2025 8:03 PM EDT [facility] Albumin 3.8 3.2 - 4.6 gm/dL 02/19/2025 8:03 PM EDT [facility] Bili Direct <0.2 0.0 - 0.3 mg/dL 02/19/2025 8:03 PM EDT [facility] Bili Total 0.3 0.2 - 1.3 mg/dL 02/19/2025 8:03 PM EDT [facility] AST 27 <=40 U/L 02/19/2025 8:03 PM EDT [facility] ALT 16 <=41 U/L 02/19/2025 8:03 PM EDT [facility], [facility] Alk Phos 90 36 - 123 U/L 02/19/2025 8:03 PM EDT [facility] [employer], [facility] Blood VENOUS BLOOD / Unknown Venipuncture / Unknown 02/19/2025 11:47 AM EDT 02/19/2025 11:47 AM EDT us Michaela Palacio MD CHEMISTRY ORDERABLES Final Res ult [facility], [address] , [place] [address] * CT VILMA LUNG NODULE FOLLOW UP [...] HISTORY: Follow up lung nodule. R91.1-Solitary pulmonary watkfc-JEQ-62-CM. COMPARISON: 12/27/2023 PROCEDURE COMMENTS: Noncontrast, low-dose, multidetector [...] HISTORY: Follow up lung nodule. R91.1-Solitary pulmonary ycezel-SSE-39-CM. COMPARISON: 12/27/2023 PROCEDURE COMMENTS: Noncontrast, low-dose, multidetector [...] resultswithin the time period is included. Pathologist [facility] Sed Rate 17 < OR = 30 mm/h [facility] 01/02/2024 2:43 PM EST 01/02/2024 2:43 PM EST Michaela Palacio MD [facility]-HEMATOLOGY ORDERABLES Fi nal Result [facility] [address] [place] [address] * HEPATIC FUNCTION PANEL-[facility] (01/02/2024 2:43 PM EST) Only the most recent of2 resultswithin the time period is included. Protein, Total 7.3 6.1 - 8.1 g/dL [facility] Albumin 4.4 3.6 - 5.1 g/dL [facility] Globulin 2.9 1.9 - 3.7 g/dL (calc) [facility] Albumin/Globuli n Ratio 1.5 1.0 [...] ORDERABLES Fin al Result Performing Organization Address [facility] Co de Phone Number [facility] [place] [address] [place] [address] * CREATININE-[facility] (01/02/2024 2:43 PM EST) Only the most recent of2 resultswithin the time period is included. Creatinine 0.72 0.50 - 1.05 mg/dL [facility] EGFR 91 > OR = 60 mL/min/1.73 m2 [facility] 01/02/2024 2:43 PM EST 01/02/2024 2:43 PM EST Michaela Palacio MD [facility]-CHEMISTRY ORDERABLES Fin al Result Performing Organization Address [facility] Co de Phone Number [facility] [address] [place] [address] * C REACTIVE PROTEIN-[facility] (01/02/2024 2:43 PM EST) Only the most recent of3 resultswithin the time period is included. CRP 1.2 <8.0 mg/L [facility] 01/02/2024 2:43 PM EST 01/02/2024 2:43 PM EST us Michaela Palacio MD [facility]-CHEMISTRY ORDERABLES Fin al Result [facility] [address] [facility] [place] [address] * CBC WITH AUTO DIFF-[facility] (01/02/2024 2:43 PM EST) Only the most recent of3 resultswithin the time period is included. WBC 7.4 3.8 - 10.8 Thousand/u L [facility] RBC 4.27 3.80 - 5.10 Million/uL [facility] Hemoglobin 13.7 11.7 - 15.5 g/dL [facility] Hematocrit 40.6 35.0 - 45.0 % [facility] MCV 95.1 80.0 - 100.0 fL [facility] MCH 32.1 27.0 - 33.0 pg [facility] MCHC 33.7 32.0 - 36.0 g/dL [facility] RDW 12.5 11.0 - 15.0 % [facility] Platelets 338 140 - 400 Thousand/u L [facility] MPV 10.1 7.5 - 12.5 fL [facility] Neut# 5,002 1,500 - 7,800 cells/uL [facility] Lymph# 1,717 850 - 3,900 cells/uL [facility] Monocytes(Absol ewiiaapaayp) 540 200 - 950 cells/uL [facility] Eos 111 15 - 500 cells/uL [facility] Baso# 30 0 - 200 cells/uL [facility] Neut Percent 67.6 % [facility] Lymph Percent 23.2 % [facility] Monocytes 7.3 % [facility] Eos Percent 1.5 % [facility] Baso Percent 0.4 % [facility] 01/02/2024 2:43 PM EST 01/02/2024 2:43 PM EST Michaela Palacio MD [facility]-HEMATOLOGY ORDERABLES Fi nal Result Performing Organization Address City/[facility]/ZIP Co de Phone Number [facility] [address] [place] [address] * QUANTIFERON(R)-TB GOLD PLUS, 1-[facility] (01/02/2024 2:43 PM EST) Only the most recent of2 resultswithin the time period is included. [facility] QUANTIFERON(R)-T B GOLD PLUS, 1 TUBE NEGATIVE [...] T-lymphocytes. For additional information, please refer to https://education.CatchMe!.[employer]/faq/HXP728 (This link is being provided for informational/ educational purposes only.) 01/02/2024 2:43 PM EST 01/02/2024 2:43 PM EST Michaela Palacio MD [facility]-IMMUNOLOGY ORDERABLES Fi nal Result Performing Organization Address City/[facility]/ZIP Co de Phone Number [facility] [address] [place] [address] * CT CHEST ABDOMEN PELVIS W CONTRAST [...] history of other malignant neoplasm of large fmbcgtvgm-NDX-86-CM. COMPARISON: December 25, [address] and [...] Z85.038-Personal history of other malignant neoplasm oflarge uqwmcnasa-WNU-55-CM. COMPARISON: December 25, [address] and [...] - 1.3 mg/dL 12/27/2023 2:33 PM EST [facility] Blood BLOOD SPECIMEN / Unknown 12/27/2023 2:30 PM EST 12/27/2023 2:33 PM EST Rashad Timmons PA-C POINT OF CARE TEST ORDERABLE S Final Result [facility] [address] [place] [address] * ESOPHAGOGASTRODUODENOSCOPY (EGD) (08/02/2023 3:34 [...] None Staff Staff Role Ilana Santiago RN Dual Hose Cementer MORGAN Hill CRNA, MD Performing Provider MORGAN [...] PM Specimens No specimens collected Leora Monique ADHESIVE SPRAYER ENDOSCOPY PROCEDURE ORDER XAVIER Final Result * INTRAOP AIRWAY PLACEMENT (08/02/2023 3:03 PM EDT) Narrative [facility] - 08/02/2023 3:03 PM [...] Insertion attempts: 1 us Reza Sky DO [place] ANESTHESIA Edited Resu lt - Final [facility] [address] [place] [id number] * (ABNORMAL) BASIC METABOLIC PANEL (08/02/2023 11:48 AM EDT) Only the most recent of8 resultswithin the time period is included. Sodium 142 136 - 145 mmol/L 08/02/2023 12:13 PM EDT [facility] Potassium 3.2(L) 3.5 - 5.0 mmol/L 08/02/2023 12:13 PM EDT [facility] Chloride 104 98 - 107 mmol/L 08/02/2023 12:13 PM EDT [facility] Total CO2 28 22 - 29 mmol/L 08/02/2023 12:13 PM EDT [facility] Anion Gap 10 7 - 16 mmol/L 08/02/2023 12:13 PM EDT [facility] Calcium 9.4 8.8 - 10.4 mg/dL 08/02/2023 12:13 PM EDT [facility] Glucose Lvl 102(H) 82 - 100 mg/dL 08/02/2023 12:13 PM EDT [facility] BUN 19 8 - 23 mg/dL 08/02/2023 12:13 PM EDT [facility] Creatinine 0.73 0.51 - 1.30 mg/dL 08/02/2023 12:13 PM EDT [facility] eGFR (CKD-EPIcr 2020) 89 >=60 mL/min/1.7 3 m2 08/02/2023 12:13 PM EDT [facility] Comment:Estimated GFR was ca lculated using the CKD-EPIcr (2020) equation refit without race. The equation is recommended by the National Kidney Foundation - [place] Society of Nephrology Task Force. Blood VENOUS BLOOD / Unknown Venipuncture / Unknown 08/02/2023 11:48 AM EDT 08/02/2023 11:56 AM EDT Rip Meyer MD CHEMISTRY ORDERABLES Final Resul t [facility] [address] [place] [address] * COMPREHENSIVE METABOLIC PANEL-[facility] (07/04/2023 2:16 PM [...] Fin al Result [facility] [address] [place] [address] * MM MAMMO DIGITAL BONY SCREEN BILAT (05/16/2023 2:07 PM EDT) Only the most recent of2 resultswithin the time period is included. Anatomical Region Laterality Modality Breast Bilateral Mammography 05/16/2023 2:51 PM EDT Impressions 05/16/2023 2:51 PM EDT Negative (PJY-Oszweecs-5) ~ RECOMMENDATION: Routine screening mammogram in 1 [...] the next mammogram, in accordance with the [place] [employer] and the Society of Breast Imaging recommendations. Narrative 05/16/2023 2:51 PM EDT Procedure:MM MAMMO DIGITAL BONY SCREEN BILAT ~ Reason for exam: screening, asymptomatic. Z12.31-Encounter for screening mammogram for malignant neoplasm of kcfdjk-KMJ-13-CM ~ MM MAMMO DIGITAL BONY SCREEN BILAT [...] for screening mammogram for malignant neoplasm of sgvkrs-CRH-59-CM ~ MM MAMMO DIGITAL BONY SCREEN BILAT Bilateral CC and MLO view(s) were taken. Technologist: Gloria Monte, RT There are scattered fibroglandular densities. Prior study comparison: Compared with prior studies the most recentbeing 03/05/22, 02/09/21 No mammographic evidence of malignancy. ~ IMPRESSION: Negative (EZK-Uyenenit-4) ~ RECOMMENDATION: Routine screening mammogram in 1 [...] the next mammogram, in accordance with the [place] [employer] and the Society of Breast Imaging recommendations. R Evangelista [place] [facility] ORDERABLES Jill l Result * (ABNORMAL) [...] STOOL Fi nal Result Performing Organization Address [facility] de Phone Number [facility] [address] [place] [address] * CULTURE, ANAEROBIC BACTERIA WITH GRAM STAIN-[facility] (11/26/2022 11:54 AM EST) Bacteria Identified [facility] SEE NOTE [facility] Comment: CULTURE, ANAEROBIC BACTERIA W/GRAM STAIN Micro Number: [id number] Test Status: Final Specimen Source: R knee fluid Specimen Quality: Adequate Gram Stain: No organisms seen Result: No anaerobes isolated. 11/21/2022 9:0 8 AM EST Narrative [facility] - 11/26/2022 11:54 AM EST FASTING: UNKNOWN Michaela Palacio MD [facility]-MICROBIOLOGY ORDERABLES Final Result Performing Organization Address [facility] de Phone Number [facility] [address] [place] [address] * CULTURE, AEROBIC BACTERIA-[facility] (11/26/2022 11:54 AM EST) Aerobic Bacterial Culture SEE NOTE [facility] Comment: CULTURE, AEROBIC BACTERIA Micro Number: [id number] Test Status: Final Specimen Source: R knee fluid Specimen Quality: Adequate Result: No Growth NO COLLECTION DATE RECEIVED. WE HAVE USED THE DATE THE SPECIMEN WAS RECEIVED BY THIS LABORATORY THE COLLECTION DATE. IF THIS IS INCORRECT, PLEASE CONTACT CLIENT SERVICES. PHONE NUMBER: [phone] 11/21/2022 9:0 8 AM EST Narrative [facility] - 11/26/2022 11:54 AM EST FASTING: UNKNOWN Michaela Palacio MD [facility]-MICROBIOLOGY ORDERABLES Final Result Performing Organization Address [facility] de Phone Number [facility] [address] [facility] [place] [address] * TEST IN QUESTION - MISC. QUESTION (11/26/2022 11:54 AM EST) Service Comment Ques [facility]i [facility] Comment: There is a question regarding the following specimen submitted and/or the test requested. QUESTION: VERIFY CARLOS NEED [id number] [facility] Resolution: [facility] Comment: COMMENTS [facility] Comment: REQUESTED INFORMATION AUTHORIZED SIGNATURE TO PREVENT FURTHER DELAYS IN TESTING, PLEASE COMPLETE INFORMATION ABOVE AND FAX TO [phone] TO RESOLVE THIS ORDER. 11/21/2022 9:0 8 AM EST Narrative [facility] - 11/26/2022 11:54 AM EST FASTING: UNKNOWN Michaela Palacio MD [facility] TEST IN QUESTION CODES F inal Result [facility] [address] [place] [address] * CRYSTALS, SYNOVIAL FLUID-[facility] (11/26/2022 11:54 AM EST) Specimen Source R KNEE FLUID [facility] Crystals, Synovial Fluid NONE SEEN /HPF [facility] Comment:No crystals found 11/21/2022 9:0 8 AM EST Narrative [facility] - 11/26/2022 11:54 AM EST FASTING: UNKNOWN us Michaela Palacio MD [facility]-BODY FLUIDS AND STOOL Fi nal Result [facility] [address] [place] [address] * CARCINOEMBRYONIC ANTIGEN (09/10/2022 2:41 PM EDT) Only the most recent of4 resultswithin the time period is included. CEA 1.21 ng/mL 09/10/2022 10:10 PM EDT [facility] Comment: Non-Smokers: <= 5.0 ng/mL Smokers: <= 10.0 ng/mL [employer] uses the [employer] CEA assay, which is intended to be [...] Timmons PA-C CHEMISTRY ORDERABLES Final R esult [facility] [address] [facility] , [place] [address] * [facility] LOWER EXTREMITY VENOUS RIGHT (08/17/2021 12:09 PM [...] the contralateral left commonfemoral vein. Judy Gallego ADHESIVE SPRAYER IMG VASCULAR ORDERABLES Final Result * GMED COLONOSCOPY (08/14/2021 11:00 AM EDT) 08/14/2021 11:0 0 AM EDT Impressions [facility] - 08/14/2021 10:57 AM EDT Polyps (3 mm to 4 mm) in the descending colon. (Polypectomy). Previous Surgery in the colon. Plan: Colonoscopy in 3 years. This section is an excerpt of the full report. Dennis Mak MD GI PROCEDURE ORDERABLES Fin al Result [facility] [address] [place], [place] [id number] * PATHOLOGY TISSUE REQUEST (08/14/2021 11:00 AM EDT) Only the most recent of3 resultswithin the time period is included. CASE REPORT Surgical Pathology Case: [id number] Authorizing Provider: Dennis Mak MD Collected: 08/14/2021 1100 Ordering Location: [facility] Received: 08/14/2021 1544 Pathologist: Manuel Brito MD Specimen: Large Intestine, Left/Descending Colon 08/15/2021 11:55 AM EDT [facility] FINAL DIAGNOSIS Descending Colon Polyp x 2: - Sessile Serrated Polyps, Negative For High-Grade Dysplasia. 08/15/2021 11:55 AM EDT [facility] at 1155 EDT GROSS DESCRIPTION [...] 08/14/2021 3:52 PM 08/15/2021 11:55 AM EDT [facility] MICROSCOPIC DESCRIPTION Microscopic examination is performed and the findings corroborate the diagnosis. 08/15/2021 11:55 AM EDT [facility] EMBEDDED IMAGES 08/15/2021 11:55 AM EDT [facility] Tissue DESCENDING COLON STRUCTURE / Unknown 08/14/2021 11:00 AM EDT 08/14/2021 3:44 PM EDT us Dennis Mak MD PATHOLOGY ORDERABLES Final Result [facility] [address] [place] [address] [facility] [address] [place] [id number] * CORONAVIRUS 2019 (08/11/2021 2:06 PM EDT) Only the most recent of2 resultswithin the time period is included. CORONAVIRUS [id number] Not Detected Not Detected 08/12/2021 1:19 PM EDT [facility] Comment: Caution should be exercised when interpreting [...] of COVID-19. Test is performed on the [employer]Guide Diagnosticsher platform under the FDA's Emergency Use Authorization (EUA). [employer] [place] Provider Fact Sheet: https://www.fda.gov/media/555163/download Hologic Patient Fact Sheet: https://www.fda.gov/media/732280/download Performed at [employer] [facility] [address] [place] [address] CLIA [id number] Swab BOTH ANTERIOR NARES / Unknown 08/11/2021 2:06 PM EDT 08/11/2021 2:06 PM EDT us Dennis Mak MD MICROBIOLOGY - GENERAL ORDNicola FANG Final Result [facility] [address] [facility], [place] [address] * XR HAND LEFT PA LATERAL AND [...] 3:58 PM CLINICAL HISTORY: M79.642-Pain in left fyjj-QYH-66-CM COMPARISON: None. PROCEDURE COMMENTS: XR HAND LEFT [...] 3:58 PM CLINICAL HISTORY: M79.642-Pain in left iooz-EMC-32-CM COMPARISON: None. PROCEDURE COMMENTS: XR HAND LEFT [...] office of the ordering clinician. Judy Gallego ADHESIVE SPRAYER IMG DIAGNOSTIC IMAGING ORDERAB LES Final Result * MM MAMMO DIGITAL BONY DIAGN BILAT (02/09/2021 11:13 AM EDT) Only the most recent of2 resultswithin the time period is included. Anatomical Region Laterality Modality Breast Bilateral Mammography 02/09/2021 11:2 9 AM EDT Impressions 02/09/2021 11:29 AM EDT Negative (ORN-Asukiyhf-6) ~ RECOMMENDATION: Routine screening mammogram in 1 [...] the next mammogram, in accordance with the [place] [employer] and the Society of Breast Imaging recommendations. Narrative 02/09/2021 11:29 AM EDT Procedure:MM MAMMO DIGITAL BONY DIAGN BILAT ~ Reason for exam: clinical finding. N64.89-Other specified disorders of detmwx-QBV-59-CM. Follow-up asymmetric right breast density. No current [...] exam: clinical finding. N64.89-Other specified disorders of jwrjzy-GYM-29-CM. Follow-upasymmetric right breast density. No current clinical [...] distortion or suspicious calcifications. ~ IMPRESSION: Negative (NUF-Hzoihmrk-9) ~ RECOMMENDATION: Routine screening mammogram in 1 [...] the next mammogram, in accordance with the [place] [employer] and the Society of Breast Imaging recommendations. Cristi Sosa MD IMG MAMMOGRAPHY ORDERABLES F inal Result * EXTRA HERNANDEZ URINE CX (07/28/2020 10:07 AM EDT) Urine 07/28/2020 10:0 7 AM EDT 07/28/2020 10:07 AM EDT us Rashad Timmons PA-C MICROBIOLOGY - GENERAL ORDER XAVIER Final Result [address] [address] * (ABNORMAL) URINALYSIS (07/28/2020 10:07 AM EDT) UA Color Yellow 07/28/2020 3:23 PM EDT [facility] UA Appear Cloudy(A) Clear 07/28/2020 3:23 PM EDT [facility] UA Glucose Negative Negative mg/dL 07/28/2020 [...] ORDERABLES Final Resul t [facility] [address] [facility] , [place] [address] * URINE CULTURE (NO STAIN) (07/28/2020 10:07 AM EDT) Culture No growth at 30 hours. 07/30/2020 10:27 AM EDT [facility] Urine 07/28/2020 10:0 7 AM EDT 07/28/2020 3:23 PM EDT Rashad Timmons PA-C MICROBIOLOGY - GENERAL ORDER XAVIER Final Result Performing Organization Address [facility] de Phone Number [facility] [address] , [place] [address] * MAGNESIUM LEVEL (06/21/2020 10:39 AM EDT) Pathologist [facility] Magnesium 2.1 1.6 - 2.4 mg/dL 06/21/2020 11:23 AM EDT [facility] Blood VENOUS BLOOD / Unknown Venipuncture / Unknown 06/21/2020 10:39 AM EDT 06/21/2020 10:39 AM EDT Gonzalez Vargas MD CHEMISTRY ORDERABLES Final R esult Performing Organization Address [facility] de Phone Number [facility] [address] , [place] [address] * (ABNORMAL) COMPREHENSIVE METABOLIC PANEL (06/21/2020 10:39 [...] 06/21/2020 11:34 AM EDT [facility] Glucose Lvl 101(H) 82 - 100 mg/dL 06/21/2020 11:34 AM EDT [facility] BUN 14 8 - 23 mg/dL 06/21/2020 11:34 AM EDT [facility] Creatinine 0.66 0.51 - 1.30 mg/dL 06/21/2020 11:34 AM EDT [facility] Albumin 4.0 3.2 - 4.6 gm/dL 06/21/2020 11:34 AM EDT [facility] Total Protein 7.1 6.4 - 8.3 gm/dL 06/21/2020 11:34 AM EDT [facility] Bili Total 0.2 0.1 - 1.3 mg/dL 06/21/2020 11:34 AM EDT [facility] ALT 5 <=41 U/L 06/21/2020 11:34 AM EDT [facility] AST 12 <=40 U/L 06/21/2020 11:34 AM EDT [facility], [facility] Alk Phos 65 36 - 123 U/L 06/21/2020 11:34 AM EDT [facility], [facility] GFR Afr Am 107 >=60 mL/min/1.7 3 m2 06/21/2020 11:34 AM EDT [facility] GFR Non Afr Am 93 >=60 mL/min/1.7 3 m2 06/21/2020 11:34 AM EDT [facility] Comment: This estimated GFR was [...] ORDERABLES Final R esult Performing Organization Address [facility] Co de Phone Number [facility] [address] [facility], [place] [address] [facility] [address] [place] [address] * SCANNED RHYTHM STRIPS (06/06/2020 [...] time period is included. ECG INTERPRET NSR [facility] 06/04/2020 7:32 AM EDT Narrative [facility] - 06/04/2020 8:50 AM EDT NAIF AICU/ROUTINE TX 0.12 QRS 0.10 RR 0.72 QT 0.42 See Clinical Report link for waveform capture us Unknown Provider POINT OF CARE CARDIOLOGY Final Result Performing Organization Address City/[facility]/ZIP Co de Phone Number [facility] [address] [place] [address] * EK EKG 12 LEAD (06/03/2020 2:24 PM EDT) Only the most recent of4 resultswithin the time period is included. Anatomical Region Laterality Modality Electrocardiogra phy 06/03/2020 3:02 PM EDT Impressions 06/03/2020 3:[address] [facility] Test Date: 2020-06-03 Pat Name: KHUSHBOO STAMFORD Department: DEPID Room: 2330 Gender: Female Rn Pain Management: PEDRO : 1955 Requested By: RASHAD TIMMONS Order Number: [id number] Reading MD: Arcadio Rooney MD Measurements Intervals [place] Rate: 91 P: 59 TX: 134 QRS: 42 QRSD: 100 T: 41 QT: 349 QTc: 430 Interpretive Statements SINUS RHYTHM WITH OCCASIONAL ECTOPIC PREMATURE COMPLEXES NONSPECIFIC ST & T-WAVE ABNORMALITY Electronically Signed On 06-03-2020 15:35:59 EDT by Arcadio Rooney MD Narrative Procedure Note Arcadio Rooney MD - 06/03/[address] [facility] Test Date: 2020-06-03 Pat Name: KHUSHBOO STAMFORD Department: DEPID Room: 233 Gender: Female Rn Pain Management: PEDRO : 1955 Requested By: RASHAD TIMMONS Order Number: [id number] Reading MD: Arcadio Rooney MD Measurements Intervals [place] Rate: 91 P: 59 TX: 134 QRS: 42 QRSD: 100 T: 41 QT: 349 QTc: 430 Interpretive Statements SINUS RHYTHM WITH OCCASIONAL ECTOPIC PREMATURE COMPLEXES NONSPECIFIC ST & T-WAVE ABNORMALITY Electronically Signed On 06-03-2020 15:35:59 EDT by Arcadio Rooney MD us Rashad MORIN-[facility] IMG ECG ORDERABLES Final Res ult * Peripheral Block by Anesthesia (06/02/2020 2:25 PM EDT) Narrative [facility] - 06/02/2020 2:25 PM [...] Hernandez MD ANESTHESIA [place] [address] * [employer] MISMATCH REPAIR (MMR) IHC PANEL (06/02/2020 1:51 PM EDT) [employer] Result H&E (Comments) = B) Sigmoid Colon [...] MLH1 in formalin-fixed paraffin-embedded tissue sections. A polymerAIT based system was used for detection. MLH1 (Disclaimer) = MMR references ranges are based on [employer]` internal validation, and we recommend cases with equivocal staining be confirmed with microsatellite instability (MSI) testing. MLH1 (Control Statement) = The digitized slide(s) was/were adequate for quantitative image analysis. All controls were reviewed and showed appropriate positive and negative immunoreactivity. MLH1 (Image Analysis Statement) = Whole slide image capture was performed with the [employer] ScanScope and quantitative computer-assisted image analysis using Bag of Ice software. MSH2 (Intended Use) = Mismatch repair [...] MSH2 in formalin-fixed paraffin-embedded tissue sections. A polymerAIT based system was used for detection. MSH6 [...] MSH6 in formalin-fixed paraffin-embedded tissue sections. A polymerAIT based system was used for detection. PMS2 [...] PMS2 in formalin-fixed paraffin-embedded tissue sections. A Graffle based system was used for detection. [facility] 06/02/2020 1:51 PM EDT Narrative [facility] - 06/13/2020 1:22 PM EDT Requesting Provider: Gonzalez Hollingsworth Specimen = [id number] us Manuel Brito MD PATHOLOGY ORDERABLES Final Res ult [facility] [address] [place] [address] * INTRAOP AIRWAY PLACEMENT (06/02/2020 8:44 AM EDT) Narrative [facility] - 06/02/2020 8:44 AM [...] AADAMS RRNA Title: RNSA Kayode To MD [place] ANESTHESIA Edited Result - Final Performing Organization Address [facility] Co de Phone Number [facility] [address] [place] [address] * BB HISTORY CHECK (05/20/2020 12:22 PM EDT) Only the most recent of2 resultswithin the time period is included. BB HISTORY CHECK (1) Previous History OK 05/20/2020 12:53 PM EDT [facility] Blood VENOUS BLOOD / Unknown Venipuncture / Unknown 05/20/2020 12:22 PM EDT 05/20/2020 12:33 PM EDT Gaby Garcia ADHESIVE SPRAYER BLOOD BANK ORDERABLES Final R esult Performing Organization Address [facility] Co de Phone Number [facility] [place] [address] * SURGERY DATE (05/20/2020 12:22 PM EDT) Only the most recent of2 resultswithin the time period is included. Surgery Date (1) Complete 05/20/2020 12:54 PM EDT [facility] Blood VENOUS BLOOD / Unknown Venipuncture / Unknown 05/20/2020 12:22 PM EDT 05/20/2020 12:33 PM EDT Gaby Garcia ADHESIVE SPRAYER BLOOD BANK ORDERABLES Final R esult Performing Organization Address City/[facility] Co de Phone Number [facility] [place] [address] * ABORH (05/20/2020 12:22 PM EDT) Only the most recent of2 resultswithin the time period is included. ABORH Int A POS 05/20/2020 1:2 0 PM EDT [facility] Blood VENOUS BLOOD / Unknown Venipuncture / Unknown 05/20/2020 12:22 PM EDT 05/20/2020 12:33 PM EDT Gaby Garcia [facility] BLOOD BANK ORDERABLES Final R esult Performing Organization Address City/[facility]/ZIP Co de Phone Number [facility] [address] [place] [address] * ANTIBODY SCREEN IGG (05/20/2020 12:22 PM EDT) Only the most recent of2 resultswithin the time period is included. 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 P76-[place] neoplasmof rectosigmoid rrypxiic-GVX-83-CM COMPARISON: Prior PET and CT PROCEDURE COMMENTS: [...] GLUCOSE METER POC (04/28/2020 8:34 AM EDT) [facility] Glucose Meter POC 96 70 - 100 mg/dL 04/28/2020 8:35 AM EDT [facility] Sample Type Capillary 04/28/2020 8:35 AM EDT [facility] Patient Status Non-Critical Patient 04/28/2020 8:35 AM EDT [facility] Blood BLOOD SPECIMEN / Unknown 04/28/2020 8:34 AM EDT 04/28/2020 8:35 AM EDT Rashad Timmons PA-C POINT OF CARE TEST ORDERABLE S Final Result Performing Organization Address [facility] de Phone Number [facility] [address] [place] [address] * GMED EGD-COLONOSCOPY (04/15/2020 10:20 AM EDT) 04/15/2020 10:2 0 AM EDT Impressions [facility] - 04/15/2020 11:24 AM EDT Plan: CT scan chest/abdomen/pelvis with contrast Colonoscopy in 1 year. This section is an excerpt of the full report. Dennis Mak MD GI PROCEDURE ORDERABLES Fin al Result Performing Organization Address [facility] Co de Phone Number [facility] [address] [place] [address] * CORONAVIRUS 2019 (COVID-19) - REF LAB (04/12/2020 11:25 AM EDT) [facility] CORONAVIRUS [id number] Not Detected 04/14/2020 11:25 AM EDT [facility] [...] In compliance with this authorization, please visit [email or web address] for more information and to access the applicable information sheets. If the result is Not Detected, this does not rule out the presence of PCR inhibitors in the patient specimen or assay specific nucleic acid in concentrations below the level of detection by the assay. Performed by [email or web address], [address] [place] [address] www.[employer], Craig Machuca MD, Lab. Director Coronavirus [employer] Source Nasopharyngeal 04/14/2020 11:25 AM EDT [employer] Swab NASOPHARYNGEAL STRUCTURE / Unknown 04/12/2020 11:25 AM EDT 04/12/2020 11:25 AM EDT us Dennis Mak MD LAB SEND OUT ORDERABLES Fin al Result [facility] [address] [place] [address] * MRI KNEE LEFT WO CONTRAST (12/02/2019 [...] CONTRAST, 12/02/2019. CLINICAL HISTORY: M25.562-Pain in left qumr-VTU-90-CM COMPARISON: None. TECHNIQUE: Multiplanar, multisequence MR images [...] CONTRAST, 12/02/2019. CLINICAL HISTORY: M25.562-Pain in left lnxg-MII-75-CM COMPARISON: None. TECHNIQUE: Multiplanar, multisequence MR images [...] Advanced tricompartmental osteoarthrosis. us Ming Santamaria MD [facility] MRI ORDERABLES Final Res ult * MRI [...] CONTRAST, 12/02/2019. CLINICAL HISTORY: M25.511-Pain in right hrntuxyv-TBS-94-CM COMPARISON: None. TECHNIQUE: Multiplanar, multisequence MR images [...] CONTRAST, 12/02/2019. CLINICAL HISTORY: M25.511-Pain in right fjphnoha-ZTJ-92-CM COMPARISON: None. TECHNIQUE: Multiplanar, multisequence MR images [...] CONTRAST, 12/02/2019. CLINICAL HISTORY: M25.512-Pain in left jjrgikyp-XXO-77-CM COMPARISON: None. TECHNIQUE: Multiplanar, multisequence MR images [...] CONTRAST, 12/02/2019. CLINICAL HISTORY: M25.512-Pain in left kadqyklg-FKP-18-CM COMPARISON: None. TECHNIQUE: Multiplanar, multisequence MR images [...] - 2.5 % 09/28/2019 4:08 PM EST [employer] Retic # 40.8 40.0 - 110.0 x10(3)/mcL 09/28/2019 4:08 PM EST [employer] [facility] ([employer]) Imm. Retic Fraction % 8.5 3.1 - 17.6 % 09/28/2019 4:08 PM EST [employer] Retic Hgb 36.8 23.0 - 38.0 pg 09/28/2019 4:08 PM EST [employer] Blood VENOUS BLOOD / Unknown Venipuncture / Unknown 09/28/2019 3:36 PM EST 09/28/2019 3:36 PM EST Narrative [employer] [facility] - 09/28/2019 4:08 PM EST Reticulocyte hemoglobin [...] [phone]. (4)Jj Lan., et al. 2010. Blood [phone]. us Dennis Mak MD HEMATOLOGY ORDERABLES Final Result [employer], [employer] [address] [facility] , [address] [place], [place] [address] * (ABNORMAL) IRON/UIBC (09/28/2019 3:36 PM EST) [...] CHEMISTRY ORDERABLES Final Result [facility], [facility] [address] [facility] , [place] [address] * (ABNORMAL) CBC (09/28/2019 3:36 PM EST) [...] x10(3)/mcL 09/28/2019 4:08 PM EST [facility] ([employer]) MPV 9.9 8.8 - 12.5 fL 09/28/2019 4:08 PM EST [employer] Blood VENOUS BLOOD / Unknown Venipuncture / Unknown 09/28/2019 3:36 PM EST 09/28/2019 3:36 PM EST us Dennis Mak MD HEMATOLOGY ORDERABLES Final Result Performing Organization Address [facility] de Phone Number [facility] [employer] [address] , [place] [address] * FERRITIN (09/28/2019 3:36 PM EST) Pathologist [facility] Ferritin 25 13 - 150 ng/mL 09/28/2019 4:39 PM EST [employer] Blood Venipuncture / Unknown 09/28/2019 3:36 PM EST 09/28/2019 3:36 PM EST Narrative [employer] - 09/28/2019 4:39 PM EST Ingestion of del doses of biotin (>5 mg/day) taken within 8 hours of drawing blood sample can interfere with this immunoassay test. us Dennis Mak MD CHEMISTRY ORDERABLES Final Result Performing Organization Address [facility] de Phone Number [facility] [employer] [address] , [place] [address] * MM US BREAST LIMITED RIGHT (09/11/2019 1:02 PM EDT) Anatomical Region Laterality Modality Breast Right Ultrasound 09/11/2019 2:4 2 PM EDT Impressions 09/11/2019 2:42 PM EDT Benign finding (OWU-Muqnhjmd-1) ~ RECOMMENDATION: Follow-up diagnostic mammogram of both [...] N63.10-Unspecified lump in the right breast, unspecified prqiysds-INW-92-CM ~ MM US BREAST LIMITED RIGHT Standard [...] mass. N63.10-Unspecified lump in the right breast, ouscvjzmxuulgtfwbxw-ORZ-37-CM ~ MM US BREAST LIMITED RIGHT Standard [...] shadowing or distortion. ~ IMPRESSION: Benign finding (GYX-Mddgvzpw-7) ~ RECOMMENDATION: Follow-up diagnostic mammogram of both [...] IMG MAMMOGRAPHY ORDERABLES F inal Result * MOTOR ASSEMBLY SUPERVISOR CYTOLOGY REQUEST (PAP ONLY) (09/03/2019 11:09 AM EDT) CASE REPORT Gynecologic Cytology Report Case: [id number] Authorizing Provider: Cristi Sosa MD Collected: 09/03/2019 1109 Ordering Location: [facility] Received: 09/03/2019 1109 First Screen: Kenny Turner CT Specimen: LIQUID-BASED PAP - CERVICAL/ENDOCERV ICAL, Cervix, Endocervical 09/04/2019 10:37 AM EDT [facility] PAP FINAL DIAGNOSIS Negative for intraepithelial lesion or malignancy 09/04/2019 10:37 AM EDT [facility] at 1037 EDT MICROSCOPIC DESCRIPTION Microscopic examination is performed and the findings corroborate the diagnosis. 09/04/2019 10:37 AM EDT [facility] PAP SMEAR ADEQUACY Satisfactory for evaluation 09/04/2019 10:37 AM EDT [facility] ENDOCERVICAL T-ZONE Transformation zone present 09/04/2019 10:37 AM EDT [facility] EMBEDDED IMAGES 9 10:37 AM EDT [facility] PAP DISCLAIMER The Pap Smear is a screening test that aids in the detection of cervical cancer and cancer precursors. Both false positive and false negative results can occur. The test should be used at regular intervals, and positive results should be confirmed before definitive therapy. Processed using the ThinPrep Compound Worker Automated cytology screening device (PhishMe). 09/04/2019 10:37 AM EDT [facility] Thin Prep ENDOCERVICAL STRUCTURE / Unknown 09/03/2019 11:09 AM EDT 09/03/2019 11:09 AM EDT Cristi Sosa MD CYTOLOGY ORDERABLES Final Re sult [facility] [address] [place] [id number] * XR FOOT LEFT AP LATERAL AND [...] 15.7 g/dL 05/20/2019 7:57 AM EDT [employer] Hct 30.3(L) 34.0 - 45.0 % 05/20/2019 7:57 AM EDT [employer] Blood Venipuncture / Unknown 05/20/2019 7:29 AM EDT 05/20/2019 7:35 AM EDT us Prakash Viramontes MD HEMATOLOGY ORDERABLES Final Result [employer] [address] [place] [address] , [place] [address] * XR PELVIS (05/19/2019 1:39 PM EDT) [...] of fracture or dislocation. Prakash Viramontes MD [facility] DIAGNOSTIC IMAGING ORDER XAVIER Final Result * FL < 1 HOUR (05/19/2019 1:02 PM EDT) Narrative PACS - 05/19/2019 2:30 PM EDT Fluoroscopy was performed. The radiologist was not in attendance. No permanent images were obtained. This dictation is being made for record keeping purposes. Prakash Viramontes MD [facility] FLUOROSCOPY ORDERABLES F inal Result PACS * [...] AIRWAY PLACEMENT (05/19/2019 12:09 PM EDT) Narrative [facility] - 05/19/2019 12:09 PM [...] motion Condition: Atraumatic Insertion attempts: 1 Title: SPEECH LANGUAGE SPECIALIST us Eliseo Aguayo CRNA [place] ANESTHESIA Final Re sult [facility] [address] [place] [address] * Peripheral Block by Anesthesia (05/19/2019 11:30 AM EDT) Narrative [facility] - 05/19/2019 11:30 AM [...] surrounding nerve by ultrasonographc visualization Additional Notes [facility] Procedure Note Esther Zarate MD - 05/19/2019 [...] surrounding nerve by ultrasonographc visualization Additional Notes [facility] us Esther Zarate MD ANESTHESIA ORDERABLES Fin al Result [place] [id number] * (ABNORMAL) VITAMIN B12/ FOLIC ACID (05/07/2019 12:11 PM EDT) Pathologist [facility] Vitamin B12 312 211 - 946 pg/mL 05/07/2019 1:48 PM EDT [facility] [employer] [facility] Folate >16.00(H) 4.50 - 16.00 ng/mL 05/07/2019 1:48 PM EDT [facility] [employer] [facility] Blood Venipuncture / Unknown 05/07/2019 12:11 PM EDT 05/07/2019 12:11 PM EDT Narrative [employer] [facility] - 05/07/2019 1:48 PM EDT Ingestion of del doses of biotin (>5 mg/day) taken within 8 hours of drawing blood sample can interfere with this immunoassay test. us Vikas Burnham MD CHEMISTRY ORDERABLES Final Resul t Performing Organization Address [facility] Co de Phone Number [facility] [employer] [address] , [place] [address] * TSH REFLEX (05/07/2019 12:11 PM EDT) Pathologist [facility] TSH Reflex 0.963 0.270 - 4.200 mcIU/mL 05/07/2019 1:32 PM EDT [employer] Blood Venipuncture / Unknown 05/07/2019 12:11 PM EDT 05/07/2019 12:11 PM EDT Narrative [employer] [facility] - 05/07/2019 1:32 PM EDT Ingestion of del doses of biotin (>5 mg/day) taken within 8 hours of drawing blood sample can interfere with this immunoassay test. us Vikas Burnham MD CHEMISTRY ORDERABLES Final Resul t Performing Organization Address [facility]/ZIP Co de Phone Number [facility] [employer] [address] , [place] [address] * PT / INR (05/07/2019 12:05 PM EDT) Pathologist [facility] PT 10.7 9.7 - 12.5 second(s) 05/07/2019 1:08 PM EDT [facility] [employer] [facility] INR 0.95 0.86 - 1.10 no units 05/07/2019 1:08 PM EDT [employer] Comment: Level of Therapy Indications Target INR Range Standard Dose Treatment and prophylaxis of venous 2.0 - 3.0 thrombosis, pulmonary embolism High Dose High risk patients with mechanical 2.5 - 3.5 heart valves Blood VENOUS BLOOD / Unknown Venipuncture / Unknown 05/07/2019 12:05 PM EDT 05/07/2019 12:05 PM EDT us Prakash Viramontes MD HEMATOLOGY ORDERABLES Final Result [employer] [address] [facility] , [place] [address] * MRI PELVIS WO CONTRAST (01/28/2019 1:36 [...] CONTRAST, 01/28/2019. CLINICAL HISTORY: M25.551-Pain in right wko-DGU-47-CM M25.552-Pain in left kyh-ODL-32-CM COMPARISON: MRI left hip 07/03/2012. TECHNIQUE: Multiplanar, [...] CONTRAST, 01/28/2019. CLINICAL HISTORY: M25.551-Pain in right qqh-AVB-21-CM M25.552-Pain in left uwu-VAP-56-CM COMPARISON: MRI left hip 07/03/2012. TECHNIQUE: Multiplanar, [...] post left hip arthroplasty placement. us Ming Sanatmaria MD IMG MRI ORDERABLES Final Res ult [...] fascia and tendon at neck level, initial yotrrqnfe-FGC-50-CM S29.019A-Strain of muscle and tendon of unspecified wall of thorax, initial asdydfaoh-ERR-29-CM S39.012A-Strain of muscle, fascia and tendon of lower back, initial wwpzkdgle-KYZ-61-CM COMPARISON: None PROCEDURE COMMENTS: Multiplanar multiecho MR [...] muscle, fascia and tendon at necklevel, initial yglzdpcxf-LHS-40-CM S29.019A-Strain of muscle and tendon of unspecified wall of thorax,initial mkgqgdzfe-GKV-09-CM S39.012A-Strain of muscle, fascia and tendon of lower back, initial qvnteohem-RYG-32-CM COMPARISON: None PROCEDURE COMMENTS: Multiplanar multiecho MR [...] fascia and tendon at neck level, initial eynarrfvf-ZEE-74-CM S29.019A-Strain of muscle and tendon of unspecified wall of thorax, initial mbezhfzyd-HMH-85-CM S39.012A-Strain of muscle, fascia and tendon of lower back, initial qwwpglhof-FCJ-61-CM COMPARISON: None. PROCEDURE COMMENTS: Multiplanar multiecho MR [...] muscle, fascia and tendon at necklevel, initial mehoidlvc-GLI-36-CM S29.019A-Strain of muscle and tendon of unspecified wall of thorax,initial lnafyuhtu-LJT-94-CM S39.012A-Strain of muscle, fascia and tendon of lower back, initial yciktflza-DTJ-48-CM COMPARISON: None. PROCEDURE COMMENTS: Multiplanar multiecho MR imaging of the thoracicspine. Sagittal imaging of the entire thoracic spine with selected axial imaging. FINDINGS: Moderate dextroscoliosis noted. No subluxation detected. No fractureidentified. No bone marrow edema or suspicious bony lesions detected. Degenerativechange of intervertebral discs noted with multilevel disc space narrowingdesiccation and disc bulge or shallow protrusions noted most prominent at T9-10 sfhE88-82. But these disc protrusions are mild. No [...] fascia and tendon at neck level, initial jtokrefrz-XXI-30-CM S29.019A-Strain of muscle and tendon of unspecified wall of thorax, initial ckshrlhzp-XWF-82-CM S39.012A-Strain of muscle, fascia and tendon of lower back, initial nmcnympzh-JOB-00-CM COMPARISON: MR cervical spine June 14, 2015 [...] muscle, fasciaand tendon at neck level, initial lvpnsciis-OZO-02-CM S29.019A-Strain of muscle and tendon of unspecified wall of thorax,initial xbemzrtfm-MNR-77-CM S39.012A-Strain of muscle, fascia and tendon of lower back, initial dupfzswmw-DDD-11-CM COMPARISON: MR cervical spine June 14, 2015 [...] Moderate to marked left and moderate right Q1arbcstyjz narrowing representing potential mechanisms of nerve root impingement.Mild central stenosis. Similar findings on prior. C5/C6: Broad-based discogenic disease with associated this marginspurring and mild indentation of the subarachnoid space. Mild to moderate left O4lgvodohnb narrowing. C6/C7: Mild discogenic disease with associated this margin spurring andmild indentation of the subarachnoid space C7/T1: Unremarkable. IMPRESSION: Multilevel discogenic disease with foraminal narrowing as described. Combination of factors producing mild central stenosis at C4-C5 withbilateral C5 foraminal narrowing, greater on the left than on the right,representing potential mechanisms of nerve root impingement. Please note above level by level discussion. us Ming Santamaria MD [facility] MRI ORDERABLES Final Res ult * NM BONE SCAN WHOLE BODY (09/18/2018 3:23 PM EST) Anatomical Region Laterality Modality Nuclear Medicine 09/18/2018 3:23 PM EST Impressions 09/18/2018 4:32 PM EST 1. Multifocal axial and appendicular degenerative changes. Narrative 09/18/2018 4:32 PM EST WHOLE BODY BONE SCAN, 09/18/2018 3:23 PM CLINICAL HISTORY: M54.5-Low back vdld-WFB-95-CM COMPARISON: 2 view chest October 30, 2016 PROCEDURE COMMENTS: 20.2 mCi of Sw27a-KVV. Whole body bone scanning per protocol. FINDINGS: [...] 09/18/2018 3:23 PM CLINICAL HISTORY: M54.5-Low back cifg-OXE-86-CM COMPARISON: 2 view chest October 30, 2016 PROCEDURE COMMENTS: 20.2 mCi of Du64a-NCG. Whole body bone scanningper protocol. FINDINGS: There is multifocal abnormal uptake in the spine, including posteriorelements in the upper and mid thoracic spine as well as upper lumbar spine. Theseare likely degenerative. There is additional degenerative change at the left hip, rightsternoclavicular joint, both knees, and both feet. IMPRESSION: 1. Multifocal axial and appendicular degenerative changes. Ming Santamaria MD [facility] NM ORDERABLES Final Resu lt * CT HEAD WO CONTRAST (09/18/2018 12:49 PM EST) Anatomical Region Laterality Modality Head Computed Tomogra phy 09/18/2018 12:4 9 PM EST Impressions 09/18/2018 1:09 PM EST No acute intracranial abnormality. Narrative 09/18/2018 1:[address] HEAD WO CONTRAST 09/18/2018 12:49 PM CLINICAL HISTORY: S09.90XS-Unspecified injury of head, orzrtgb-IVI-54-CM COMPARISON: None. PROCEDURE COMMENTS: Routine noncontrast head [...] 12:49 PM CLINICAL HISTORY: S09.90XS-Unspecified injury of head,mmzhzco-AMC-11-CM COMPARISON: None. PROCEDURE COMMENTS: Routine noncontrast head [...] 10/30/2016 11:37 AM History: 61 years .Female. K33-Arvff-WKE-91-TG. Compare: February 13, 2006 Procedure Note Javed Fu MD - 10/30/2016 XR CHEST PA AND LATERAL 10/30/2016 11:37 AM History: 61 years .Female. C30-Eyrek-OPP-64-EV. Compare: February 13, 2006 IMPRESSION: Tortuous thoracic aorta. Moderate degenerative changes thoracic spine. No radiographic evidence of acute cardiac or pulmonary diseaseprocess. Judy Shook Julián BARON IM DIAGNOSTIC IMAGING ORDERAB LES Final Result * PULMONARY FUNCTION TEST (10/30/2016 10:41 AM EST) 10/30/2016 10:4 1 AM EST Impressions [facility] - 10/30/2016 10:41 AM EST Good patient effort and understanding. Acceptable results and reproducibility. NORMAL PFTs. Clinical Correlation is Required. This data was interpreted based upon the 2005 ATS/ERS Task Force Position Statement: Interpretative Strategies for Lung Function Tests. This section is an excerpt of the full report. [facility] P[facility] ORDERABLES Final Result [facility] [address] [place] [address] * MM MAMMO DIGITAL SCREENING W CAD BILAT (05/16/2016 3:48 PM EDT) Only the most recent of4 resultswithin the time period is included. Anatomical Region Laterality Modality Breast Bilateral Mammography 05/17/2016 12:3 5 PM EDT Impressions 05/17/2016 1:30 PM EDT : Negative (UYT-Pspcdkjw-2) ~ RECOMMENDATION: Routine screening mammogram in 1 [...] the most recent studies of 05-12-15. ~ [facility] Evangelista Arelis IMG MAMMOGRAPHY ORDERABLES [...] symptoms, please consider MRI imaging. Judy Gallego ADHESIVE SPRAYER IMG DIAGNOSTIC IMAGING ORDERAB LES Final Result [...] show Sinus Rhythm 78-125 average 94. PVC's 35[address]. No VT. PAC's 12. No SVT. Narrative 03/19/2015 11:59 AM EDT INDICATIONS: Chest Pain LENGTH OF TAPE 23 HRS 59 MINS MEDICATION: None listed SLOWEST RATE 76 FASTEST RATE 125 AVERAGE RATE 94 TOTAL PVC'S 34917 TOTAL PAC'S 12 VENTRICULAR TACHYCARDIA SUPRAVENTRICULAR TACHYCARDIA [...] no significant reversible defects. Javed Curtis MD [facility] CARDIAC ORDERABLES Final Result * ST STRESS TEST LEXISCAN (11/29/2014 12:01 PM EST) Anatomical Region Laterality Modality Cardiac Stress T esting 11/29/2014 11:3 0 AM EST Impressions 12/02/2014 12:45 PM EST Exercise ECG Report [facility] Interpretive Statements Stress Test Lexiscan Reason [...] esophageal dilation. Fluoroscopy time: 1.2 minutes FINDINGS: Rfid Engineer film unremarkable. Esophagus normal in appearance. Normal esophageal motility. No esophageal mass or stricture. No hiatal hernia. No gastroesophageal reflux was seen. Procedure Note Kenny Welch MD - 09/02/2013 Esophagram, 09/02/2013 HISTORY: Chest pain, status post recent endoscopy with esophagealdilation. Fluoroscopy time: 1.2 minutes FINDINGS: Rfid Engineer film unremarkable. Esophagus normal in appearance. Normalesophageal [...] AM EDT) 08/12/2013 7:30 AM EDT Impressions [facility] - 08/12/2013 7:47 AM EDT Normal stomach. Normal duodenum. Normal mucosa in the whole esophagus. (Dilation). Plan: Follow-up as needed This section is an excerpt of the full report, which can be found by clicking the hyperlink. us Dennis Mak MD GI PROCEDURE ORDERABLES Fin al Result Performing Organization Address [facility] Co de Phone Number [facility] [address] [place] [address] * SBCPT-[facility] (08/12/2013 12:00 AM EDT) CPT Code(s) [facility] Comment: [id number], [id number] [employer] assumes no responsibility for the accuracy of CPT codes provided which are for informational purposes only. CPT codes are payor specific and CPT coding is the sole responsibility of the billing entity. 08/12/2013 08/12/2013 11: 40 PM EDT Narrative [facility] - 08/13/2013 4:26 PM EDT FASTING: UNKNOWN Resulting Agency Comment Performing Organization Information: Site ID: OW Name: [facility] Address: [address] [place] [address] [place] [address] Director: Gerhard Hayes MD PhD us Dennis Mak MD [facility]-HEMATOLOGY ORDERABLES Final Result Performing Organization Address City/[facility] Co de Phone Number [facility]ILBUR [address]EC[address] [address], [place] * TISSUE PATHOLOGY-[facility] (08/12/2013 12:00 AM [...] in cassette A. Gross exam(s) performed at: [facility] [address] [address] Telecommunication Tower Technician: GERHARD HAYES MD PHD Specimen A Diagnosis [facility] Comment: - Benign hyperplastic polyps. [id number] Specimen B Clinical Impression Polyp in the [...] [facility] Comment: - Tubular adenoma. [id number] 08/12/2013 08/12/2013 11: 40 PM EDT Narrative [facility] - 08/13/2013 4:26 PM EDT FASTING: UNKNOWN Resulting Agency Comment Performing Organization Information: Site ID: [id number] Name: [facility] Address: [address] [place] [address], [place] [address] Director: Neal Isabel MD Dennis Mak MD [facility] ORDERABLES Final Result [facility] [address] [facility] [place] [address], [facility] * GMED COLONOSCOPY (08/12/2013 12:00 AM EDT) 08/12/2013 Impressions [facility] - 08/12/2013 7:44 AM [...] ORDERABLES Fin al Result Performing Organization Address [facility] Co de Phone Number [facility] [address] [place] [address] * DIFFERENTIAL (08/11/2013 9:50 AM EDT) Neut Percent 46.7 % SE LAB Lymph Percent 42.7 % [facility] [place] Percent 7.2 % [facility] Eos Percent 3.1 % [facility] Baso Percent 0.3 % [facility] Neut# 2.4 1.8 - 7.7 x10(3)/mcL [facility] Lymph# 2.2 0.6 - 4.8 x10(3)/[facility] [place]# 0.4 0.0 - 1.3 x10(3)/[facility] Eos# 0.2 0.0 - 0.5 x10(3)/[facility] Baso# 0.0 0.0 - 0.2 x10(3)/[facility] Blood specimen (specimen) 08/11/2013 9:50 AM EDT 08/11/2013 8:52 PM EDT Moustapha Shaffer DPM HEMATOLOGY ORDERABLES Final R esult Performing Organization Address [facility] Co de Phone Number [facility] [address] [place] [address] * MM MOBILE MAMMO DIGITAL SCREEN W CAD TRAMAINE (07/16/2012 1:11 PM EDT) Anatomical Region Laterality Modality Breast Mammography 07/18/2012 10:5 3 AM EDT Impressions 07/18/2012 1:41 PM EDT : No radiographic evidence of malignancy (QVD-Kqvqljzv-4) ~ RECOMMENDATION: Routine screening mammogram in 1 [...] ~ IMPRESSION: No radiographic evidence of malignancy (VPC-Mupwluvv-3) ~ RECOMMENDATION: Routine screening mammogram in 1 [...] disease about the left hip. There is zbea-zh-yzzm articulation with cortical remodeling. There is collapse [...] degenerative disease about the lefthip. There is hrjk-rz-ethn articulation with cortical remodeling. There is collapse [...] views. IMPRESSION- No radiographic evidence of malignancy (TDF-Jcgelalk-9) RECOMMENDATION- Routine screening mammogram in 1 year. * The patient with a palpable abnormality, unexplained by breast imaging, should be managed on clinical basis by the attending physician. * Breast imaging has a false negative rate of 15%. * The patient was notified by mail of the results of this examination. Umbrella Cutter- RODRÍGUEZ GIBBS Reading Physician- ERNST WATSON MD Released Date Time- 07/06/09 1134 Procedure Note Ernst Watson - 01/19/2010 Procedure-MM DIGITAL DIAG UNILAT MM DIGITAL DIAG UNILAT CC and MLO view(s) were taken of the left breast. No abnormality is seen on additional views. IMPRESSION- No radiographic evidence of malignancy ([id number]-2) RECOMMENDATION- Routine screening mammogram in 1 year. * The patient with a palpable abnormality, unexplained by breast imaging, should be managed on clinical basis by the attending physician. * Breast imaging has a false negative rate of 15%. * The patient was notified by mail of the results of this examination. Umbrella Cutter- RODRÍGUEZ GIBBS Reading Physician- ERNST WATSON MD Released Date Time- 07/06/09 1134 [facility] Evangelista Infante [facility] al Result * MM DIG SCR TRAMAINE [...] dated 03-23-08 IMPRESSION- Incomplete-need additional imaging evaluation ([id number]) RECOMMENDATION- Special view mammogram of the left [...] dated 03-23-08 IMPRESSION- Incomplete-need additional imaging evaluation ([id number]) RECOMMENDATION- Special view mammogram of the left [...] Released Date Time- 07/01/09 1140 Benita Infante [facility]IST[facility] Fin al Result * MR [...] due to spur projecting from the facet. Umbrella Cutter- RADHA Garcia Physician- ILANA SHI MD Released [...] due to spur projecting from the facet. Umbrella Cutter- RADHA SWANSON Reading Physician- ILANA SHI MD Released Date Time- 04/19/091927 Michaela Palacio MD IMG [facility] HISTORICAL Fi nal Result * EK EKG REG (11/27/2008 2:26 PM EST) Anatomical Region Laterality Modality Other 11/27/2008 2:26 PM EST Narrative 11/28/2008 11:16 AM EST Sinus rhythm with PVC(s) Anterior T wave changes are nonspecific Borderline ECG No previous records available at this time Clinical correlation is recommended. Umbrella Cutter- FRANKLIN GARCIA M.D. Reading Physician- FRANKLIN GARCIA M.D. Released Date Time- 11/28/08 1116 Procedure Note Franklin Garcia - 01/19/2010 Sinus rhythm with PVC(s) Anterior T wave changes are nonspecific Borderline ECG No previous records available at this time Clinical correlation is recommended. Umbrella Cutter- FRANKLIN GARCIA M.D. Reading Physician- FRANKLIN GRACIA M.D. Released Date Time- 11/28/08 1116 Eliseo Martel MD [facility] Final Result * XR FOOT & TOES (06/29/2008 3:01 PM EDT) Anatomical Region Laterality Modality Other 06/29/2008 3:01 PM EDT Narrative 06/29/2008 7:17 PM EDT Right foot and toes, 06/29/2008- Indication- Pain. Three views right foot and toes show midfoot degenerative change, hallux valgus, bunion formation, and hallux MTP degenerative change. No acute fracture. Umbrella Cutter- ERICA Garcia Physician- CONNOR PAYTON MD Released Date Time- 06/29/082025 Procedure Note Connor Payton - 01/19/2010 Right foot and toes, 06/29/2008- Indication- Pain. Three views right foot and toes show midfoot degenerative change, hallux valgus, bunion formation, and hallux MTP degenerative change. No acute fracture. Umbrella Cutter- ERICA Jj- CONNOR PAYTON MD Released Date Time- 06/29/082025 [facility] [employer] [facility] Fin [facility] Result * XR WRIST (11/05/2006 10:00 AM EST) Anatomical Region Laterality Modality Other 11/05/2006 10:0 0 AM EST Narrative 11/05/2006 11:05 AM EST FOUR VIEWS OF RIGHT WRIST - 11/05/06 History- Pain in the scaphoid region. No injury. There is no evidence of fracture or dislocation. No significant arthritic process is seen. Umbrella Cutter- RACHID Gracia Radiologist- CHANA JASSO MD Released Date Time- 11/05/06 1309 Procedure Note Chana Jasso - 01/18/2010 FOUR VIEWS OF RIGHT WRIST - 11/05/06 History- Pain in the scaphoid region. No injury. There is no evidence of fracture or dislocation. No significant arthritic process is seen. Umbrella Cutter- RACHID Garcia Radiologist- CHANA JASSO MD Released Date Time- 11/05/06 1309 Benita Infante [facility] [employer] [facility] HISTORICAL Fin al Result * FL STOMACH/ESOPHAGUS PIN SETTER (10/18/2006 8:00 AM EST) Anatomical Region Laterality Modality Other 10/18/2006 8:00 AM EST Narrative 10/18/2006 9:36 AM EST [facility] Upper GI series on 10/18/2006. 1. [...] other abnormality in the upper gastroenteric tract. Umbrella CutterDenzel FREGOSO Reading Radiologist- KAREN REYES MD Released Date Time- 10/18/06 1502 Procedure Note Karen Reyes - 01/18/2010 WAITING Upper GI series on 10/18/2006. 1. History- [...] other abnormality in the upper gastroenteric tract. Umbrella CutterDenzel FREGOSO Reading Radiologist- KAREN REYES MD Released Date Time- 10/18/06 1502 R Evangelista Infante [facility]IST[facility] Fin al Result * MM [...] compared with prior studies. IMPRESSION- Benign finding ([id number]-[id number]-4) RECOMMENDATION- Routine screening mammogram in 1 year. * The patient with a palpable abnormality, unexplained by breast imaging, should be managed on clinical basis by the attending physician. * Breast imaging has a false negative rate of 15%. * The patient was notified by mail of the results of this examination. The mammogram was reviewed by a Radiologist and CAD. Umbrella Cutter- RALPH Garcia Radiologist- JONATHAN BANSAL MD Released [...] compared with prior studies. IMPRESSION- Benign finding ([id number]-[id number]) RECOMMENDATION- Routine screening mammogram in 1 year. * The patient with a palpable abnormality, unexplained by breast imaging, should be managed on clinical basis by the attending physician. * Breast imaging has a false negative rate of 15%. * The patient was notified by mail of the results of this examination. The mammogram was reviewed by a Radiologist and CAD. Umbrella Cutter- RALPH Garcia Radiologist- JONATHAN BANSAL MD Released Date Time- 09/03/06 1422 [facility] Evangelista Mieet [facility] Fin al Result * XR [...] dorsal spine. Impression- No acute cardiopulmonary disease. Umbrella Cutter- RADHA SWANSON Reading Radiologist- MAURICE NOONAN MD [...] dorsal spine. Impression- No acute cardiopulmonary disease. Umbrella Cutter- RADHA SWANSON Reading Radiologist- MAURICE NOONAN MD Released Date Time- 02/13/06 1654 Michaela Palacio MD [facility] Fi nal Result Visit Diagnoses Diagnosis Start [...] specified disorders of liver 06/02/2020 Care Teams Business Segment Manager Relationship Specialty Start Date End Date Arelis Benita Evangelista [address] [place] [address] PCP - General 07/10/10 Dennis Mak MD [address] [place] [address] Internal Medicine-Gastroenterology 07/14/13 Michaela Palacio MD [address] [place] [phone] Internal Medicine-Rheumatology 02/20/23
--- OUTSIDE RECORDS SUMMARY | 2025-06-22 12:00 | XMS_ITS | Clinical Summary ---
Author Organization [facility] Address [facility] [place] [address] Care Team Providers Care Shell Molder Name Role Phone Unavailable Primary Care Provider [...]
--- OUTSIDE RECORDS SUMMARY | 2025-06-22 12:00 | XMS_ITS | Referral Summary ---
Author Organization [facility] Address [address] [place], [place] [address] [address] Care Team Providers Care Mechanical Maintenance Engineer Name Role Phone Unavailable Primary Care Provider [...]
--- OUTSIDE RECORDS SUMMARY | 2025-06-22 12:00 | XMS_ITS | Encounter Summary ---
Author Organization [place] [address] Care Team Providers Care Bank Vault Clerk Name Role Phone Benita Infante Primary Care Provider [phone] Dennis Mak MD Unavailable [phone] Michaela Palacio MD Unavailable [phone] Encounter Details Date Type Department Care Team (Late st Contact Info) Description 08/12/2013 Orders Only SEP Gastro CV 651 [facility] [address] [place] [address] Dennis Mak MD [address] [facility] [place] [address] Social History Tobacco Use Types [...] Visit [facility] [address] [place] [address] Michaela Palacio MD [address] [place] [address] documented as of this encounter Procedures Procedure Name Priority Date/Time Associated Diagnosis Comments GMED EGD Routine 08/12/2013 7:30 AM EDT documented in this encounter Results * GMED EGD (08/12/2013 7:30 AM EDT) 08/12/2013 7:30 AM EDT Impressions [facility] - 08/12/2013 7:47 AM EDT Normal stomach. Normal duodenum. Normal mucosa in the whole esophagus. (Dilation). Plan: Follow-up as needed This section is an excerpt of the full report, which can be found by clicking the hyperlink. us Dennis Mak MD GI PROCEDURE ORDERABLES Fin al Result Performing Organization Address City/State/[facility] Co de Phone Number [facility] [address] [place] [address] documented in this encounter Visit Diagnoses Not on filedocumented in this encounter Care Teams Bank Vault Clerk Relationship Specialty Start Date End Date Benita Infante [address] [facility] [address] PCP - General 07/10/10 Dennis Mak MD [address] [place] [address] Internal Medicine-Gastroenterology 07/14/13 Michaela Palacio MD [address] [place] [address] Internal Medicine-Rheumatology 02/20/23 documented as of this encounter
--- OUTSIDE RECORDS SUMMARY | 2025-06-22 12:01 | XMS_ITS | Encounter Summary ---
Author Organization [place] [address] Care Team Providers Care Weed Sprayer Name Role Phone Benita Infante Primary Care Provider [phone] Dennis Mak MD Unavailable [phone] Michaela Palacio MD Unavailable [phone] Encounter Details Date Type Department Care Team (Late st Contact Info) Description 08/14/2021 Lab Requisition [facility] [place] [address] Dennis Mak MD [address] [place] [address] Personal history of other malignant [...] Description 08/05/2025 2:00 PM EDT [facility] [address] [place] [address] Michaela Palacio MD [address] [place] [address] documented as of this encounter Procedures Procedure Name Priority Date/Time Associated Diagnosis Comments PATHOLOGY TISSUE REQUEST Routine 08/14/2021 11:00 AM EDT Personal history of other malignant neoplasm of large intestine Polyp of colon documented in this encounter Results * PATHOLOGY TISSUE REQUEST (08/14/2021 11:00 AM EDT) CASE REPORT Surgical Pathology Case: [id number] Authorizing Provider: Dennis Mak MD Collected: 08/14/2021 1100 Ordering Location: [facility] Received: 08/14/2021 1544 Pathologist: Manuel Brito MD Specimen: Large Intestine, Left/Descending Colon 08/15/2021 11:55 AM EDT [facility] FINAL DIAGNOSIS Descending Colon Polyp x 2: - Sessile Serrated Polyps, Negative For High-Grade Dysplasia. 08/15/2021 11:55 AM EDT [facility] at 1155 EDT GROSS DESCRIPTION [...] 08/14/2021 3:52 PM 08/15/2021 11:[address] [facility] MICROSCOPIC DESCRIPTION Microscopic examination is performed and the findings corroborate the diagnosis. 08/15/2021 11:55 AM EDT [facility] EMBEDDED IMAGES 08/15/2021 11:55 AM EDT [facility] Tissue DESCENDING COLON STRUCTURE / Unknown 08/14/2021 11:00 AM EDT 08/14/2021 3:44 PM EDT Dennis Mak MD PATHOLOGY ORDERABLES Final Result [facility] [address] [place] [address] [id number] documented in this encounter Visit Diagnoses Diagnosis Personal history of other malignant neoplasm of large intestine Polyp of colon Benign neoplasm of colon documented in this encounter Care Teams Weed Sprayer Relationship Specialty Start Date End Date Benita Infante [address] [place] [address] PCP - General 07/10/10 Dennis Mak MD [address] [place] [address] Internal Medicine-Gastroenterology 07/14/13 Michaela Palacio MD [address] [place] [address] Internal Medicine-Rheumatology 02/20/23 documented as of this encounter
--- OUTSIDE RECORDS SUMMARY | 2025-06-22 12:01 | XMS_ITS | Encounter Summary ---
Author Organization [facility] [place] [address] Care Team Providers Care Leather Grader Name Role Phone Benita Infante Primary Care Provider [phone] Dennis Mak MD Unavailable [phone] Michaela Palacio MD Unavailable [phone] Encounter Details Date Type Department Care Team (Late st Contact Info) Description 08/14/2021 Orders Only SEP Gastro CVH 651 [facility] Building [address] [place] [address] Dennis Mak MD [address] [facility] [place] [address] Social History Tobacco Use Types [...] Office Visit [facility] [address] [place] [address] Michaela Palacio MD [address] [place] [address] documented as of this encounter Procedures Procedure Name Priority Date/Time Associated Diagnosis Comments GMED COLONOSCOPY Routine 08/14/2021 11:0 0 AM EDT documented in this encounter Results * GMED COLONOSCOPY (08/14/2021 11:00 AM EDT) 08/14/2021 11:0 0 AM EDT Impressions [facility] - 08/14/2021 10:57 AM EDT Polyps (3 mm to 4 mm) in the descending colon. (Polypectomy). Previous Surgery in the colon. Plan: Colonoscopy in 3 years. This section is an excerpt of the full report. us Dennis Mak MD GI PROCEDURE ORDERABLES Fin al Result [facility] 1 [place] [address] documented in this encounter Visit Diagnoses Not on filedocumented in this encounter Care Teams Leather Grader Relationship Specialty Start Date End Date Benita Infante [address] [place] [address] [address] [place] [address] PCP - General 07/10/10 Dennis Mka MD [address] [place] [address] [address] [place] [address] Internal Medicine-Gastroenterology 07/14/13 [place] [address] [place] [phone] Internal Medicine-Rheumatology 02/20/23 documented as of this encounter
--- OUTSIDE RECORDS SUMMARY | 2025-06-22 12:01 | XMS_ITS | Encounter Summary ---
Author Organization [place] [address] Care Team Providers Care Speech Pathology Teacher Name Role Phone Benita Infante Primary Care Provider [phone] Dennis Mak MD Unavailable [phone] Micahela Palacio MD Unavailable [phone] Encounter Details Date Type Department Care Team (Late st Contact Info) Description 08/12/2013 Orders Only SEP Gastro CV 651 [facility] 19 [place] [address] Dennis Mak MD [address] [facility] [place] [address] Social History Tobacco Use Types [...] Visit [facility] [address] [place] [address] Michaela Palacio MD [address] [place] [address] documented as of this encounter Procedures Procedure Name Priority Date/Time Associated Diagnosis Comments GMED COLONOSCOPY Routine 08/12/2013 12:0 0 AM EDT documented in this encounter Results * GMED COLONOSCOPY (08/12/2013 12:00 AM EDT) 08/12/2013 Impressions [facility] - 08/12/2013 7:44 AM EDT Polyps [...] ORDERABLES Fin al Result Performing Organization Address City/State/[facility] Co de Phone Number [facility] [address] [place] [address] documented in this encounter Visit Diagnoses Not on filedocumented in this encounter Care Teams Speech Pathology Teacher Relationship Specialty Start Date End Date Benita Infante [address] [place] [address] [address] [place] [address] PCP - General 07/10/10 Dennis Mak MD [address] [place] [address] [address] [place] [address] Internal Medicine-Gastroenterology 07/14/13 Michaela Palacio MD [address] [place] [address] Internal Medicine-Rheumatology 02/20/23 documented as of this encounter
--- NOTE | 2025-06-22 12:03 | XR_ITS ---
FINAL REPORT CLINICAL HISTORY: Evaluate bunion deformity COMPARISON: None FINDINGS: Three views of the right foot show no evidence of acute displaced fracture. There are postoperative changes from bunionectomy and arthrodesis of the 1st MTP joint. 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 Moderate degenerative changes are noted of the midfoot. There is mild calcaneal spurring. Severe osteopenia is noted. IMPRESSION: Extensive chronic changes as above. Reviewed, Interpreted and Dictated by Lisa Jimenez MD Transcribed by Victorina Key Authenticated and [facility]
--- NOTE | 2025-06-22 12:03 | XR_ITS ---
FINAL REPORT CLINICAL HISTORY: Evaluate bunion deformity COMPARISON: None FINDINGS: Three views of the left foot show no evidence of acute displaced fracture. Severe hallux valgus deformity. There are significant valgus deformities also noted of the 2nd and 3rd MTP joints. Scattered degenerative changes are most pronounced in the midfoot. There is mild calcaneal spurring. IMPRESSION: Degenerative changes as above. Reviewed, Interpreted and Dictated by Lisa Jimenez MD Transcribed by Victorina Key Authenticated and [facility]
== END 2025-06-22 23:59 | disposition home or self-care (01) ==
LOC: RAD 11:57
PROVIDERS: PCP Family Medicine; Visit Provider Podiatrist
DX: M24.474 Recurrent dislocation, right foot (principal); M19.072 Primary osteoarthritis, left ankle and foot; M19.071 Primary osteoarthritis, right ankle and foot; M77.31 Calcaneal spur, right foot; M85.871 Other specified disorders of bone density and structure, right ankle and foot; M21.612 Bunion of left foot; M21.961 Unspecified acquired deformity of right lower leg; Z98.890 Other specified postprocedural states; Z98.1 Arthrodesis status
CPT/HCPCS: 73630

== ENCOUNTER 2025-07-06 13:45 | Outpatient (CLI) | payer MEDICARE, MEDICAID, SELFPAY ==
--- OUTSIDE RECORDS SUMMARY | 2025-07-06 13:47 | XMS_ITS | Encounter Summary ---
Author Organization [place] [address] Care Team Providers Care Ferruler Name Role Phone Benita Infante Primary Care Provider [phone] Dennis Mak MD Unavailable [phone] Michaela Palacio MD Unavailable [phone] Encounter Details Date Type Department Care Team (Late st Contact Info) Description 04/15/2020 Orders Only SEP Gastro [facility] [address] [place] [address] Dennis Mak MD [address] [place] [address] Social History Tobacco Use Types Packs/Day Years [...] Description 08/05/2025 2:00 PM EDT [facility] [address] [place] [address] Michaela Palacio MD [address] [place] [address] documented as of this encounter Procedures Procedure Name Priority Date/Time Associated Diagnosis Comments GMED EGD-COLONOSCOPY Routine 04/15/2020 10:20 AM EDT documented in this encounter Results * GMED EGD-COLONOSCOPY (04/15/2020 10:20 AM EDT) 04/15/2020 10:2 0 AM EDT Impressions [facility] - 04/15/2020 11:24 AM EDT Plan: CT scan chest/abdomen/pelvis with contrast Colonoscopy in 1 year. This section is an excerpt of the full report. us Dennis Mak MD GI PROCEDURE ORDERABLES Fin al Result [facility] 1 [place] [address] documented in this encounter Visit Diagnoses Not on filedocumented in this encounter Care Teams Ferruler Relationship Specialty Start Date End Date Benita Infante [address] [place] [address] [address] [place] [address] PCP - General 07/10/10 Dennis Mak MD [address] [place] [address] [address] [place], [place] [id number] Internal Medicine-Gastroenterology 07/14/13 [place] [address] [place] [phone] Internal Medicine-Rheumatology 02/20/23 documented as of this encounter
--- OUTSIDE RECORDS SUMMARY | 2025-07-06 13:48 | XMS_ITS | Encounter Summary ---
Author Organization [place] [address] Care Team Providers Care [employer] Barista Name Role Phone Benita Infante Primary Care Provider [phone] Dennis Mak MD Unavailable [phone] Michaela Palacio MD Unavailable [phone] Encounter Details Date Type Department Care Team (Late st Contact Info) Description 04/06/2025 Treatment [facility] [address] [address] Elizabeth Franklin MA Social History [...] Description 08/05/2025 2:00 PM EDT Office Visit [facility] [address] [place] [address] Michaela Palacio MD [address] [place] [address] documented as of this encounter Visit Diagnoses Not on filedocumented in this encounter Care Teams [employer] Barista Relationship Specialty Start Date End Date Benita Infante [address] [place] [address] PCP - General 07/10/10 Dennis Mak MD [address] [place] [address] Internal Medicine-Gastroenterology 07/14/13 Michaela Palacio MD [address] [place] [address] Internal Medicine-Rheumatology 02/20/23 documented as of this encounter
--- OUTSIDE RECORDS SUMMARY | 2025-07-06 13:48 | XMS_ITS | Encounter Summary ---
Author Organization [facility] [place] [address] Care Team Providers Care Sap Director Name Role Phone Benita Infante Primary Care Provider [phone] Dennis Mak MD Unavailable [phone] Micahela Palacio MD Unavailable [phone] Encounter Details Date Type Department Care Team (Late st Contact Info) Description 04/04/2025 Results Follow-Up [facility] [place] [address] [place] [address] Tim Mcgee MD [address] [place] [address] XR FOOT RIGHT AP LATERAL [...] Description 08/05/2025 2:00 PM EDT Office Visit [facility] [address] [place] [address] Michaela Palacio MD [address] [place] [address] documented as of this encounter Visit Diagnoses Not on filedocumented in this encounter Care Teams Sap Director Relationship Specialty Start Date End Date Benita Infante [address] [place], [place] [address] PCP - General 07/10/10 Dennis Mak MD [address] [place], [place] [address] Internal Medicine-Gastroenterology 07/14/13 Michaela Palacio MD [address] [place] [address] Internal Medicine-Rheumatology 02/20/23 documented as of this encounter
--- OUTSIDE RECORDS SUMMARY | 2025-07-06 13:48 | XMS_ITS | Encounter Summary ---
Author Organization [place] [address] Care Team Providers Care Train Announcer Name Role Phone Benita Infante Primary Care Provider [phone] Dennis Mak MD Unavailable [phone] Michaela Palacio MD Unavailable [phone] Encounter Details Date Type Department Care Team (Late st Contact Info) Description 04/15/2020 Lab Requisition [facility] [place] [address] Dennis Mak MD [address] [place] [address] Iron deficiency anemia, unspecified; Diaphragmatic [...] Visit [facility] [address] [place] [address] Michaela Palacio MD [address] [place] [address] documented as of this encounter [...] AM EDT) CASE REPORT Surgical Pathology Case: [id number] Authorizing Provider: Dennis Mak MD Collected: 04/15/2020 1020 Ordering Location: [facility] Received: 04/15/2020 7473 Pathologist: Dontae Scott MD Specimens: A) - Small Intestine, Duodenum B) - Large Intestine, Left/Descending Colon C) - Large Intestine, Rectum D) - Large Intestine, Rectum 04/19/2020 8:33 AM EDT [facility] CLINICAL HISTORY Iron deficiency anemia. A 3 cm mass in the rectosigmoid junction and a 1 cm polyp in the rectum. 04/19/2020 8:33 AM EDT [facility] FINAL DIAGNOSIS A) Duodenum, distal, [...] with endoscopy findings. 04/19/2020 8:33 AM EDT [facility] at 0833 EDT COMMENT Parts C and D were reviewed by additional departmental pathologist with diagnostic agreement.EK Dr. Dennis Mak was notified of this result via [employer] text message on 04/19/2020 at 8:32 am. 04/19/2020 8:33 AM EDT [facility] GROSS DESCRIPTION Part A) Received [...] one cassette. /ZN 04/19/2020 8:33 AM EDT [facility] MICROSCOPIC DESCRIPTION Microscopic examination is performed and the findings corroborate the diagnosis. 04/19/2020 8:33 AM EDT [facility] FLOW CYTOMETRY SUMMARY 04/19/2020 8:33 AM EDT [facility] SPECIAL STAINS 04/19/2020 8:33 AM EDT [facility] EMBEDDED IMAGES 04/19/2020 8:33 AM EDT [facility] Tissue DUODENAL STRUCTURE / Unknown 04/15/2020 10:20 [...] ORDERABLES Final Result [facility] [address] [place] [address] [place] [address] documented in this encounter Visit Diagnoses Diagnosis Iron deficiency anemia, unspecified Diaphragmatic hernia without obstruction or gangrene Diaphragmatic hernia without mention of obstruction or gangrene Diverticulosis of large intestine without perforation or abscess without bleeding Diverticulosis of colon (without mention of hemorrhage) Polyp of colon Benign neoplasm of colon documented in this encounter Care Teams Train Announcer Relationship Specialty Start Date End Date Benita Infante [address] [place] [address] PCP - General 07/10/10 Dennis Mak MD [address] [place] [id number] [place] [address] Internal Medicine-Gastroenterology 07/14/13 Mcihaela Palacio MD [address] [place] [address] Internal Medicine-Rheumatology 02/20/23 documented as of this encounter
--- OUTSIDE RECORDS SUMMARY | 2025-07-06 13:48 | XMS_ITS | Clinical Summary ---
Author Organization [facility] Address [address] [place], [place] [address] Care Team Providers Care Beach Patrol Lieutenant Name Role Phone Nonstaff, Referring MD Primary Care Provider [phone] Dwain Choi MD Unavailable [phone] Allergies Active Allergy Reactions Criticality Noted [...] series) 2030 Medical Devices Implanted Type Area Control Room Helper Device Identifier Shelf Expiration Date Model / Serial / Lot Scr Canc Acetab 6.5x40mm Implanted:Qty: 1 on 2013 by Dwain Choi MD at [facility] Left: Hip * J \T\ J DEPUY 12/11/2022 [id number] / / [id number] Head Fem Cocr 10/24 28mm+5 Implanted:Qty: 1 on 2013 by Dwain Choi MD at [facility] Left: Hip * J \T\ J DEPUY 06/10/2016 1365-12-000 / / [id number] Stem Fem Std Collar Corail 11 Implanted:Qty: 1 on 2013 by Dwain Choi MD at [facility] Left: Hip * J \T\ J DEPUY [id number] / / [id number] Eliminator [place] H Pos Stop Implanted:Qty: 1 on 2013 by Dwain Choi MD at [facility] Left: Hip * J \T\ J DEPUY 11/10/2022 [id number] / / [id number] Cup Acetab Sector 50mm Implanted:Qty: 1 on 2013 by Dwain Choi MD at [facility] Left: Hip * J \T\ J DEPUY 12/11/2022 1217-22-050 / / [id number] [employer]trx Polyethylene Acetabular Liner Neutral 28mm Id X 50mm Od Implanted:Qty: 1 on 2013 by Dwain Choi MD at [facility] Left: Hip * USE JJ DEPU 05/10/2016 1221-28-050 / / [id number] Hip Total Con Tier 2 Depuy Implanted:Qty: 1 on 2013 by Dwain Choi MD at [facility] Left: Hip * J \T\ J DEPUY HIPS TIER 2 / / Insurance AETNA AETNA Advance Directives For more information, please contact: [phone] * Full Code (Latest Code Status on File) Date Activated Date Inactivated Comments 2013 3:09 PM 01/24/2013 10:13 PM Care Teams Beach Patrol Lieutenant Relationship Specialty [place] [address] [place] [address] PCP - General Family Medicine 01/08/13 Dwain Choi MD [address] [place], [place] [address] Orthopedic Surgery 11/18/22
--- OUTSIDE RECORDS SUMMARY | 2025-07-06 13:48 | XMS_ITS | Encounter Summary ---
Author Organization [facility] Address [address] [facility] [place] [address] Care Team Providers Care Ditching Machine Operating Engineer Name Role Phone Benita Infante Primary Care Provider [phone] Dennis Mak MD Unavailable [phone] Michaela Palacio MD Unavailable [phone] Encounter Details Date Type Department Care Team (Late st Contact Info) Description 06/02/2020 Orders Only [facility] [place] [address] Manuel Brito MD Social History [...] Description 08/05/2025 2:00 PM EDT Office Visit [facility] [address] [place] [address] Michaela Palacio MD [address] [place] [address] documented as of this encounter [...] MLH1 in formalin-fixed paraffin-embedded tissue sections. A polymerPeppercorn based system was used for detection. MLH1 (Disclaimer) = MMR references ranges are based on [email or web address]` internal validation, and we recommend cases with equivocal staining be confirmed with microsatellite instability (MSI) testing. MLH1 (Control Statement) = The digitized slide(s) was/were adequate for quantitative image analysis. All controls were reviewed and showed appropriate positive and negative immunoreactivity. MLH1 (Image Analysis Statement) = Whole slide image capture was performed with the [employer] ScanScope and quantitative computer-assisted image analysis using TurnStar software. MSH2 (Intended Use) = Mismatch repair [...] MSH2 in formalin-fixed paraffin-embedded tissue sections. A polymerPeppercorn based system was used for detection. MSH6 [...] MSH6 in formalin-fixed paraffin-embedded tissue sections. A polymerPeppercorn based system was used for detection. PMS2 [...] PMS2 in formalin-fixed paraffin-embedded tissue sections. A Bliips based system was used for detection. [facility] 06/02/2020 1:51 PM EDT Narrative [facility] - 06/13/2020 1:22 PM EDT Requesting Provider: Gonzalez Hollingsworth Specimen = [id number] us Manuel Brito MD PATHOLOGY ORDERABLES Final Res ult [facility] [address] [place] [address] documented in this encounter Visit Diagnoses Not on filedocumented in this encounter Care Teams Ditching Machine Operating Engineer Relationship Specialty Start Date End Date Benita Infante [facility] [place] [address] PCP - General 07/10/10 Dennis Mak MD [address] [place] [address] Internal Medicine-Gastroenterology 07/14/13 Michaela Palacio MD [address] [place] [address] Internal Medicine-Rheumatology 02/20/23 documented as of this encounter
--- OUTSIDE RECORDS SUMMARY | 2025-07-06 13:49 | XMS_ITS | Encounter Summary ---
Author Organization [place] [address] Care Team Providers Care Project Geologist Name Role Phone Benita Infante Primary Care Provider [phone] Dennis Mak MD Unavailable [phone] Michaela Palacio MD Unavailable [phone] Encounter Details Date Type Department Care Team (Late st Contact Info) Description 08/14/2021 Orders Only [facility] [address] [place] [address] Dennis Mak MD [address] [place] [address] Social History Tobacco Use Types Packs/Day Years [...] Visit [facility] [address] [place] [address] Michaela Palacio MD [address] [place] [address] documented as of this encounter Procedures Procedure Name Priority Date/Time Associated Diagnosis Comments [facility] COLONOSCOPY Routine 08/14/2021 11:0 0 AM EDT documented in this encounter Results * [facility] COLONOSCOPY (08/14/2021 11:00 AM EDT) 08/14/2021 11:0 0 AM EDT Impressions [facility] - 08/14/2021 10:57 AM EDT Polyps (3 mm to 4 mm) in the descending colon. (Polypectomy). Previous Surgery in the colon. Plan: Colonoscopy in 3 years. This section is an excerpt of the full report. us Dennis Mak MD GI PROCEDURE ORDERABLES Fin al Result [facility] [address] [place] [address] documented in this encounter Visit Diagnoses Not on filedocumented in this encounter Care Teams Project Geologist Relationship Specialty Start Date End Date Benita Infante [address] [place] [address] [address] [place] [address] PCP - General 07/10/10 Dennis Mak MD [address] [place] [address] [address] [place] [address] Internal Medicine-Gastroenterology 07/14/13 [place] [address] [place] [id number] Internal Medicine-Rheumatology 02/20/23 documented as of this encounter
--- OUTSIDE RECORDS SUMMARY | 2025-07-06 13:49 | XMS_ITS | Continuity of Care Document ---
Author Organization [facility] Address [address] [place] [address] Phone Care Team Providers Care Communications Representative Name Role Phone Benita Infante Primary Care Provider [phone] Dennis Mak MD Unavailable Michaela Palacio MD Unavailable [phone] Encounters Date Type Department Care Team Description 04/06/2025 Orders Only [facility] [address] [address] Lidia Emanuel MA 04/06/2025 Orders Only [facility] [address] [address] Con Farris DO 04/06/2025 Telephone [facility] [address] [address] Elizabeth Franklin MA Medication Management 04/06/2025 Treatment [facility] [address] [address] Elizabeth Franklin MA 04/05/2025 Telephone [facility] [address] [address] [address] [place] [address] Catina Acosta NievesSTEVE dodson Results 04/04/2025 Results Follow-Up [address] [place] [address] Tim Mcgee MD XR FOOT RIGHT AP LATERAL AND OBLIQUE 04/04/2025 5:15 PM EDT - 04/04/2025 11:59 PM EDT Hospital Encounter [facility] [address] [place] [address] Acute right ankle pain; Foot pain, right Discharge Disposition: Home or Self Care 04/04/2025 4:15 PM EDT Office Visit [address] [place] [address] Tim Mcgee MD Acute right ankle pain (Primary Dx); Foot pain, right; Acute non-recurrent maxillary sinusitis 03/09/2025 Telephone [facility] [address] [place] [address] Michaela Palacio MD Medication Management (Xeljanz) 02/21/2025 Results Follow-Up [facility] [address] [place] [address] Michaela Palacio MD CBC WITH DIFF, SEDIMENTATION RATE AUTOMATED, C-REACTIVE PROTEIN, Additional followed-up results: 3 02/19/2025 11:40 AM EDT - 02/19/2025 11:59 PM EDT Hospital Encounter [facility] [address] [place] [address] Rheumatoid arthritis of multiple sites 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 (HCC); Drug therapy Discharge Disposition: Home or Self Care 02/08/2025 Refill [facility] [address] [place] [address] Michaela Palacio MD Medication Refill 02/04/2025 Telephone [facility] [address] [place] [address] Michaela Palacio MD Medication Management (Xeljanz) 02/04/2025 2:00 PM EDT Office Visit [facility] [address] [place] [address] Michaela Palacio MD Rheumatoid arthritis of multiple sites 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 (HCC) (Primary Dx); Drug therapy; Primary generalized (osteo)arthritis; Fibromyalgia 01/26/2025 Refill [facility] [address] [place] [address] Michaela Palacio MD Medication Refill 01/18/2025 Telephone [facility] [address] [place] [address] Michaela Palacio MD Medication Management (Xeljanz) 12/31/2024 Refill [facility] [address] [place] [address] Michaela Palacio MD Medication Refill 09/18/2024 Refill [facility] [address] [place] [address] Michaela Palacio MD Medication Refill 09/03/2024 Refill [facility] [address] [place] [address] Michaela Palacio MD Medication Refill 08/10/2024 2:00 PM EDT Office Visit [facility] [address] [place] [address] Michaela Palacio MD Rheumatoid arthritis of multiple sites 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 (HCC) (Primary Dx); Drug therapy; Primary generalized (osteo)arthritis; Fibromyalgia 07/01/2024 Refill [facility] [address] [place] [address] Michaela Palacio MD Medication Refill 06/17/2024 Refill [facility] [address] [place] [address] Michaela Palacio MD Medication Refill 04/16/2024 Refill [facility] [address] [place] [address] Michaela Palacio MD Medication Refill 04/10/2024 Telephone [facility] ED [address] [facility] [place] [address] Lisa Mora, [facility] Results (/) 04/02/2024 1:09 PM EDT - 04/02/2024 11:59 PM EDT [facility] [address] [facility] [place] [address] Rashad Timmons PA-C Lung nodule Discharge Disposition: Home or Self Care 02/01/2024 Refill [facility] [address] [place] [address] Michaela Palacio MD Medication Refill 01/03/2024 Orders Only [facility] [address] [facility] [place] [address] Rashad Timmons PA-C Lung nodule (Primary Dx) 01/02/2024 2:00 PM EST Office Visit [facility] [address] [place] [address] Michaela Palacio MD Rheumatoid arthritis of multiple sites 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 (HCC) (Primary Dx); Drug therapy; Primary generalized (osteo)arthritis; Fibromyalgia 12/27/2023 2:01 PM EST - 12/27/2023 11:59 PM EST Hospital Encounter [facility] [place] [address] Rashad Timmons PA-C Personal history of colon cancer Discharge Disposition: Home or Self Care 12/19/2023 Telephone [facility] [address] [place] [address] Michaela Palacio MD Medication Management 12/12/2023 Orders Only [facility] [address] [place] [address] Michaela Palacio MD Rheumatoid arthritis of multiple sites 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 (HCC) (Primary Dx); Drug therapy 12/12/2023 Telephone [facility] [address] [place] [address] Michaela Palacio MD Medication Management 12/05/2023 Orders Only [facility] [address] [place] [address] Michaela Palacio MD 12/05/2023 Telephone [facility] [address] [place] [address] Michaela Palacio MD Medication Management 11/25/2023 Telephone [facility] [address] [place] [address] Jose Guardado, DPM Other (Lapiplasty procedure/) 11/19/2023 Refill [facility] [address] [place] [address] Daily Bravo MA Medication Refill 09/09/2023 Refill [facility] [address] [place] [address] Chio Meraz MA Medication Refill 09/04/2023 Telephone [facility] [address] [place] [address] Michaela Palacio MD Medication Refill 09/03/2023 Refill [facility] [address] [place] [address] Michaela Palacio MD Medication Refill 09/03/2023 9:54 AM EDT - 09/03/2023 11:59 PM EDT Hospital Encounter [facility] [address] Rashad Timmons PA-C Personal history of colon cancer (Primary Dx); Urinary frequency Discharge Disposition: Home or Self Care 08/02/2023 2:53 PM EDT Anesthesia Event [facility] [place] [address] Reza Sky, [place] Joseph, MORGAN 08/02/2023 Travel 08/02/2023 10:57 AM EDT - 08/02/2023 4:58 PM EDT Emergency [place] [facility] [address] [place] [address] Rip Meyer MD Food impaction of esophagus, initial encounter (Primary Dx) 08/02/2023 Telephone [facility] [address], 3RD [place] [address] Dennis Mak MD Dysphagia 06/27/2023 2:40 PM EDT Office Visit [facility] [address] [place] [address] Michaela Palacio MD Rheumatoid arthritis of multiple sites 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 (HCC) (Primary Dx); Primary generalized (osteo)arthritis; Fibromyalgia; Drug therapy 06/12/2023 Refill [facility] [address] [place] [address] Chio Meraz MA Medication Refill 05/16/2023 Travel 05/16/2023 1:48 PM EDT - 05/16/2023 11:59 PM EDT Hospital Encounter [facility] Mammography [id number] Benita Infante Visit for screening mammogram Discharge Disposition: Home or Self Care 02/21/2023 2:40 PM EDT Office Visit [facility] [address] [place] [address] Michaela Palacio MD Rheumatoid arthritis of multiple sites 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 (HCC) (Primary Dx); Primary generalized (osteo)arthritis; Fibromyalgia 01/29/2023 10:00 AM EDT Office Visit [facility] [address] [facility] [place] [address] Rashad Timmons PA-C History of cancer of rectosigmoid junction (Primary Dx) 12/25/2022 Travel 12/25/2022 4:18 PM EST - 12/25/2022 11:59 PM EST Hospital Encounter [address] [address] Rashad Timmons PA-C Lung nodule Discharge Disposition: Home or Self Care 12/20/2022 Abstract [facility] [address] [place] [address] Michaela Palacio MD 12/20/2022 Orders Only [facility] [address] [place] [address] Michaela Palacio MD 12/10/2022 Orders Only [facility] [address] [place] [address] Michaela Palacio MD 09/10/2022 Travel 09/10/2022 2:36 PM EDT - 09/10/2022 11:59 PM EDT Hospital Encounter [facility] [address] [place] [id number] Personal history of colon cancer Discharge Disposition: Home or Self Care 09/09/2022 Orders Only [facility] [address] [facility] [address] [place] [address] Rashad Timmons PA-C Lung nodule (Primary Dx) 08/21/2022 10:15 AM EDT Office Visit [facility] [address] [facility] [address] [place] [address] Rashad Timmons PA-C Personal history of colon cancer (Primary Dx); Abnormal CT scan, lung 08/10/2022 Telephone [facility] ATTN: Appointments in this department are performed at various locations in the community on our Cardiovascular mobile health unit. You can look online to verify your site or call [phone] [address] Cherrie Begum, LIBRA Results 07/26/2022 Travel 07/26/2022 10:08 AM EDT - 07/26/2022 11:59 PM EDT [facility] [address] [place] [address] Rashad Timmons PA-C History of cancer of rectosigmoid junction Discharge Disposition: Home or Self Care 06/22/2022 Telephone [facility] [address] [facility] [address] [place] [address] Colon Brianna Mar RMA Appointment Needed 03/05/2022 Travel 03/05/2022 10:14 AM EDT - 03/05/2022 11:59 PM EDT Hospital Encounter [facility] Mammography [address] [place] [address] Benita Infante Encounter for screening mammogram for malignant neoplasm of breast Discharge Disposition: Home or Self Care 12/21/2021 Travel 12/21/2021 10:35 AM EST - 12/21/2021 11:59 PM EST Hospital Encounter [facility] [place] [address] Personal history of malignant neoplasm of rectum, rectosigmoid junction, and anus Discharge Disposition: Home or Self Care 12/11/2021 3:45 PM EST Office Visit [facility] [address] [place] [address] [place] [address] Rashad Timmons PA-C History of cancer of rectosigmoid junction (Primary Dx) 08/17/2021 Travel 08/17/2021 11:41 AM EDT - 08/17/2021 11:59 PM EDT Hospital Encounter [facility] [address] [place] [address] Judy Gallego APRN Varicose veins of right lower extremity with edema Discharge Disposition: Home or Self Care 08/14/2021 Lab Requisition [facility] [place] [address] Dennis Mak MD Personal history of other malignant neoplasm of large intestine; Polyp of colon 08/14/2021 Orders Only [facility] [address], 3RD [place] [address] Dennis Mak MD 08/11/2021 Travel 08/11/2021 1:35 PM EDT - 08/11/2021 11:59 PM EDT Hospital Encounter [facility] [address] [place] [address] Encounter for screening for COVID-19 Discharge Disposition: Home or Self Care 07/13/2021 1:49 PM EDT - 07/13/2021 11:59 PM EDT Hospital Encounter [facility] [place] [address] [facility] [address] [place] [address] History of colon cancer Discharge Disposition: Home or Self Care 07/13/2021 Travel 07/13/2021 12:30 PM EDT Office Visit [facility] [place] [address] [facility] [place] [address] Dennis Mak MD History of colon cancer (Primary Dx) 05/05/2021 Travel 05/05/2021 3:45 PM EDT - 05/05/2021 11:59 PM EDT Hospital Encounter [facility] [address] [place] [address] Left hand pain Discharge Disposition: Home or Self Care 05/03/2021 Travel 05/03/2021 2:00 PM EDT Office Visit [facility] Surg [facility] [address] [facility] [address] [place] [address] Rashad Timmons PA-C Personal history of malignant neoplasm of rectum, rectosigmoid junction, and anus (Primary Dx) 04/27/2021 Telephone [facility] Surgery FTT [address] [place] [address] Gonzalez Vargas MD Other 04/26/2021 Travel 04/26/2021 1:34 PM EDT - 04/26/2021 11:59 PM EDT Hospital Encounter [facility] [place] [address] Rashad Timmons PA-C Personal history of malignant neoplasm of rectum, rectosigmoid junction, and anus Discharge Disposition: Home or Self Care 04/12/2021 Telephone [facility] [address] [place] [address] Dennis Mak MD Colonoscopy 02/09/2021 Travel 02/09/2021 10:55 AM EDT - 02/09/2021 11:59 PM EDT Hospital Encounter [facility] [address] [place] [phone] Cristi Sosa MD Breast asymmetry Discharge Disposition: Home or Self Care 02/06/2021 Travel 10/07/2020 Travel 10/04/2020 Telephone [facility] [place] [address] [place] [address] Lucila Rodgers RMA Orders 09/28/2020 3:04 PM EST - 09/28/2020 11:59 PM EST Hospital Encounter [facility] [address] [place] [address] Personal history of malignant neoplasm of rectum, rectosigmoid junction, and anus Discharge Disposition: Home or Self Care 09/28/2020 Travel 09/28/2020 1:40 PM EST Office Visit [facility] [address] [facility] [address] [place] [phone] Rashad Timmons PA-C Personal history of malignant neoplasm of rectum, rectosigmoid junction, and anus (Primary Dx) 09/26/2020 Travel 08/10/2020 Travel 08/02/2020 Travel 08/02/2020 1:50 PM EDT Office Visit [facility] NPTFTT [address] [place] [address] Cristi Sosa MD Chronic RLQ pain (Primary Dx); Rectosigmoid cancer (HCC) 07/28/2020 10:07 AM EDT - 07/28/2020 11:59 PM EDT Hospital Encounter [facility] [place] [place] [address] Right lower quadrant abdominal pain; Urinary frequency Discharge Disposition: Home or Self Care 07/28/2020 Travel 07/25/2020 Travel 07/22/2020 Travel 07/22/2020 2:00 PM EDT Office Visit [facility] [address] [facility] [address] [place] [address] Rashad Timmons PA-C Right lower quadrant abdominal pain (Primary Dx); Follow-up examination following surgery; Urinary frequency; History of uterine prolapse 07/14/2020 Telephone [facility] [address] [facility] [address] [place] [address] Gonzalez Vargas MD Advice Only 06/22/2020 Telephone Adult Med [address] [facility] [address] [place] [address] Rashad Timmons PA-C Results 06/21/2020 10:20 AM EDT - 06/21/2020 11:59 PM EDT Hospital Encounter [facility] [address] [place] [address] Postop check Discharge Disposition: Home or Self Care 06/21/2020 Travel 06/21/2020 9:20 AM EDT Office Visit [facility] [address] [facility] [address] [place] [address] Gonzalez Vargas MD Postop check (Primary Dx); Rectosigmoid cancer (HCC) 06/02/2020 5:29 AM EDT - 06/04/2020 6:25 PM EDT Hospital Encounter [facility] [address] [place] [address] [place] [address] Gonzalez Vargas MD Rectosigmoid cancer (HCC); Liver lesion; Rectosigmoid cancer (HCC); Liver lesion Discharge Disposition: Home or Self Care 06/02/2020 Orders Only [facility] [place] [address] Manuel Brito MD 06/02/2020 7:30 AM EDT - 06/02/2020 2:25 PM EDT [facility] [place] [address] Gonzalez [facility]argas MD [facility] LAP[facility] LOW ANTERIOR COLON RESECTION 06/02/2020 7:36 AM EDT Anesthesia Event [facility] [address] [place] [address] Warren Hernandez MD Powell, Jeanne, DECISION ANALYST 06/01/2020 Telephone [facility] [address] [facility] [address] [place] [address] Nelia Harding RMA Prior Authorization; Surgery 05/31/2020 Travel 05/31/2020 9:00 AM EDT Office Visit [facility] [address] [facility] [address] [place] [address] Gonzalez Vargas MD Rectosigmoid cancer (HCC) (Primary Dx) 05/29/2020 Travel 05/29/2020 1:15 PM EDT - 05/29/2020 11:59 PM EDT Hospital Encounter [facility] [address] [place] [address] 11 Covid19, [facility] [place] Ds Pre-op testing; Encounter for laboratory testing for COVID-19 virus Discharge Disposition: Home or Self Care 05/20/2020 12:05 PM EDT - 05/20/2020 11:59 PM EDT Hospital Encounter [facility] [place] [address] Gaby Garcia APRN Discharge Disposition: Home or Self Care 05/20/2020 Travel 05/20/2020 10:45 AM EDT - 05/20/2020 12:04 PM EDT Hospital Encounter [facility] PRE-ADMIT TESTING [facility] [place] [address] Preop testing (Primary Dx); Rectosigmoid cancer (HCC) Discharge Disposition: Home or Self Care 05/16/2020 Telephone [facility] Gastro [facility] [address], 3RD [place] [address] Dennis Mak MD Other 05/13/2020 Travel 05/12/2020 Telephone [facility] Surg [facility] [address] [facility] [address] [place] [address] Mari Hyatt MA Surgery 05/10/2020 Orders Only [facility] Surg [facility] [address] [facility] [address] [place] [address] Nelia Harding, [facility] Rectosigmoid cancer (HCC) (Primary Dx); Liver lesion 05/09/2020 Telephone [facility] Surg [facility] [address] [facility] [address] [place] [address] Marion Curtis, A Surgery 05/06/2020 Travel 05/06/2020 11:58 AM EDT - 05/06/2020 11:59 PM EDT Hospital Encounter [facility] [place] [address] Discharge Disposition: Home or Self Care 05/05/2020 Travel 04/28/2020 Travel 04/28/2020 8:15 AM EDT - 04/28/2020 11:59 PM EDT Hospital Encounter [facility] [place] [address] Rashad Timmons PA-C Rectosigmoid cancer (HCC) Discharge Disposition: Home or Self Care 04/28/2020 8:14 AM EDT Hospital Encounter [facility]G PET CT [facility] [place] [address] Rashad Timmons PA-C Rectosigmoid cancer (HCC) Discharge Disposition: Home or Self Care 04/27/2020 Telephone Adult Med [address] [facility] [place] [address] Rashad Timmons PA-C Follow-up 04/27/2020 Travel 04/26/2020 Travel 04/26/2020 3:40 PM EDT Office Visit [facility] Surg [facility] [address] [facility] [address] [place] [address] Gonzalez Vargas MD Rectosigmoid cancer (HCC) (Primary Dx); Liver lesion 04/20/2020 Travel 04/20/2020 10:33 AM EDT - 04/20/2020 11:59 PM EDT Hospital Encounter [facility] [address] [place] [address] Dennis Mak MD Polyp of colon, unspecified part of colon, unspecified type Discharge Disposition: Home or Self Care 04/19/2020 Travel 04/15/2020 Telephone [facility] [address] [place] [address] Dennis Mak MD Other 04/15/2020 Lab Requisition [facility] [place] [address] Dennis Mak MD Iron deficiency anemia, unspecified; Diaphragmatic hernia without obstruction or gangrene; Diverticulosis of large intestine without perforation or abscess without bleeding; Polyp of colon 04/15/2020 Orders Only [facility] [address], 3[place] [address] Dennis Mak MD 04/15/2020 Travel 04/12/2020 Travel 04/12/2020 11:40 AM EDT Clinical Support [facility] [address] [facility] [address] [place] [address] Lab, [facility] Cv Encounter for laboratory testing for COVID-19 virus (Primary Dx) 04/11/2020 Telephone [facility] [address], 3[address] [place] [address] Dennis Mak MD COVID-19 Rapid Testing 04/08/2020 Travel 02/09/2020 Travel 02/04/2020 Telephone [facility] [address] [place] [address] Dennis Mak MD Reschedule (d/t covid 19) 12/21/2019 Telephone [facility] [address], 3RD [place] [address] Dennis Mak MD Other 12/02/2019 11:16 AM EST - 12/02/2019 11:59 PM EST Hospital Encounter [facility] [address] [place] [address] Ming Santamaria MD Right shoulder pain, unspecified chronicity Discharge Disposition: Home or Self Care 12/02/2019 11:16 AM EST - 12/02/2019 11:59 PM EST Hospital Encounter [facility] [address] [place] [address] Ming Santamaria MD Left shoulder pain, unspecified chronicity Discharge Disposition: Home or Self Care 12/02/2019 11:15 AM EST Hospital Encounter [facility] [address] [place] [address] Ming Santamaria MD Left knee pain, unspecified chronicity Discharge Disposition: Home or Self Care 11/09/2019 Telephone [facility] [address], 3[place] [address] Dennis Mak MD Cancellation 09/28/2019 3:30 PM EST - 09/28/2019 11:59 PM EST Hospital Encounter [facility] [place] [address] Iron deficiency anemia, unspecified iron deficiency anemia type Discharge Disposition: Home or Self Care 09/28/2019 2:15 PM EST Office Visit [facility] [address], 3[address] [place] [address] Dennis Mak MD Iron deficiency anemia, unspecified iron deficiency anemia type (Primary Dx) 09/22/2019 Telephone [facility]ry [address] [place] [address] Sydney Connell Scribe Other (Surgery ) 09/22/2019 Telephone [facility] [address] [place] [address] Jasmyne Chapman, ABR-OE Other (powerstep issue) 09/11/2019 12:30 PM EDT - 09/11/2019 11:59 PM EDT Hospital Encounter [facility] [address] [place], [place] [id number] Cristi Sosa MD Breast mass, right Discharge Disposition: Home or Self Care 09/07/2019 Telephone [facility] NPTT [address] [place] [address] Cristi Sosa MD Other (testing) 09/04/2019 1:00 PM EDT - 09/04/2019 11:59 PM EDT Hospital Encounter [facility] [address] [id number] Cristi Sosa MD Breast mass, right Discharge Disposition: Home or Self Care 09/03/2019 Orders Only [facility] NPTFTT [address] [place] [address] Jeanne Khan RN Breast mass, right (Primary Dx) 09/03/2019 Orders Only [facility] Pod[facility]ry [address] [place] [address] Jose Guardado, MAGUE Hallux valgus of left foot (Primary Dx); Hammer toe of left foot; Exostosis; Rheumatoid arthritis, involving unspecified site, unspecified rheumatoid factor presence (HCC) 09/03/2019 9:40 AM EDT Office Visit [facility] NPTT [address] [place] [address] Cristi Sosa MD Well woman exam (Primary Dx); Encounter for screening mammogram for breast cancer; Encounter for screening colonoscopy; Breast mass, right; FHx: BRCA gene positive 08/28/2019 2:20 PM EDT Ancillary Procedure [facility] Podiatry [address] [place] [address] Jose Guardado, DPM Right foot pain Discharge Disposition: Home or Self Care 08/28/2019 1:35 PM EDT Ancillary Procedure [facility] [address] [address] Jose Guardado, DPM Left foot pain Discharge Disposition: Home or Self Care 08/28/2019 1:15 PM EDT Office Visit [facility] Podiatry [address] [address] Jose Guardado, DPMacie Left foot pain (Primary Dx); Hallux valgus of left foot; Right foot pain 06/01/2019 Telephone [facility] Neurology [facility] [address] [place] [address] Vikas Burnham MD Other (Neuropsych testing) 05/19/2019 9:31 AM EDT - 05/20/2019 5:45 PM EDT Hospital Encounter [facility] 7D ORTHO [facility] [place] [address] Prakash Viramontes MD Discharge Disposition: Home or Self Care 05/19/2019 12:30 PM EDT - 05/19/2019 1:45 PM EDT [facility] [address] [place] [address] Prakash Viramontes MD TOTAL HIP ARTHROPLASTY/REPLACE MENT-ANTERIOR OR REVISION ANTERIOR (ERICK/LANDY) 05/19/2019 11:52 AM EDT Anesthesia Event [facility] [address] [place] [address] Esther Zarate MD Braxton-Brown, Jennifer, APRN 05/07/2019 12:39 PM EDT - 05/07/2019 11:59 PM EDT Hospital Encounter [facility] EKG [facility] [place] [address] [address] [address] Luz Elena Bernard APRN Discharge Disposition: Home or Self Care 05/07/2019 11:52 AM EDT - 05/07/2019 12:38 PM EDT Hospital Encounter [facility] LABORATORY [facility] [place] [address] Preop examination (Primary Dx); Post concussion syndrome Discharge Disposition: Home or Self Care 05/07/2019 Travel 05/07/2019 10:30 AM EDT - 05/07/2019 11:51 AM EDT Hospital Encounter [facility] PRE-ADMIT TESTING [facility] [place] [address] Encounter for preadmission testing (Primary Dx); Anticoagulation adequate; Preop testing; Primary osteoarthritis of right hip Discharge Disposition: Home or Self Care 05/05/2019 11:00 AM EDT Office Visit [facility] Neurology [facility] [address] [place] [place] [address] Vikas Burnham MD Post concussion syndrome (Primary Dx) 01/28/2019 12:39 PM EDT - 01/28/2019 11:59 PM EDT Hospital Encounter [facility] [address] [address] Ming Santamaria MD Bilateral hip pain Discharge Disposition: Home or Self Care 10/30/2018 2:13 PM EST - 10/30/2018 11:59 PM EST [facility] [address] [place] [address] Ming Santamaria MD Strain of neck muscle, initial encounter; Strain of thoracic region, initial encounter; Strain of lumbar region, initial encounter Discharge Disposition: Home or Self Care 10/30/2018 2:12 PM EST Hospital [facility] [address] [address] Ming Santamaria MD Strain of neck muscle, initial encounter; Strain of thoracic region, initial encounter; Strain of lumbar region, initial encounter Discharge Disposition: Home or Self Care 10/30/2018 2:00 PM EST - 10/30/2018 2:11 PM EST Hospital Encounter [facility] MRI [address] [address] Ming Santamaria MD Strain of neck muscle, initial encounter; Strain of thoracic region, initial encounter; Strain of lumbar region, initial encounter Discharge Disposition: Home or Self Care 09/18/2018 12:36 PM EST - 09/18/2018 11:59 PM EST Hospital Encounter [facility] [address] [place] [address] Ming Santamaria MD Traumatic injury of head, sequela Discharge Disposition: Home or Self Care 09/18/2018 12:07 PM EST - 09/18/2018 12:35 PM EST Hospital Encounter EDG NUC [facility] [place] [address] Ming Santamaria MD Discharge Disposition: Home or Self Care 09/18/2018 11:00 AM EST - 09/18/2018 12:06 PM EST Hospital Encounter EDG [facility] [place] [address] Ming Santamaria MD Low back pain, unspecified back pain laterality, unspecified chronicity, with sciatica presence unspecified Discharge Disposition: Home or Self Care 10/30/2016 10:26 AM EST - 10/30/2016 10:29 AM EST Hospital Encounter EDG D-WING XRAY [facility] [place] [address] Cough Discharge Disposition: Home or Self Care 10/30/2016 10:30 AM EST - 10/30/2016 11:59 PM EST Hospital Encounter EDG PFT LAB [facility] [place] [address] Discharge Disposition: Home or Self Care 06/14/2016 2:59 PM EDT - 06/14/2016 11:59 PM EDT [facility] [address] [address] Benita Infante Cervical radiculopathy Discharge Disposition: Home or Self Care 05/16/2016 2:15 PM EDT - 05/16/2016 3:18 PM EDT Hospital Encounter EDG D-WING XRAY [facility] [place] [address] Neck pain Discharge Disposition: Home or Self Care 05/16/2016 3:19 PM EDT - 05/16/2016 11:59 PM EDT Hospital Encounter [place] Mamm[facility] [place] [address] Benita Infante Visit for screening Discharge Disposition: Home or Self Care 10/03/2015 1:03 PM EST - 10/03/2015 2:10 PM EST Emergency [place] Emergency [facility] [place] [address] Jeremiah Plaza MD Transient elevated blood pressure (Primary Dx) Discharge Disposition: Home or Self Care 05/12/2015 12:48 PM EDT - 05/12/2015 11:59 PM EDT Hospital Encounter [facility] [address] [address] Benita Infante Other screening mammogram Discharge Disposition: Home or Self Care 03/05/2015 9:00 AM EDT - 03/05/2015 11:59 PM EDT Hospital Encounter [facility] HOLTER MONITOR [facility] [place] [address] Benita Infante Heart rate slow Discharge Disposition: Home or Self Care 11/29/2014 9:21 AM EST - 11/29/2014 11:59 PM EST Hospital Encounter [facility] Stress Test [facility] [place] [address] Jose Curtis MD Chest pain Discharge Disposition: Home or Self Care 11/29/2014 9:21 AM EST - 11/29/2014 11:59 PM EST Hospital Encounter EDG NUC MED [facility] [place] [address] Jose Curtis MD Chest pain Discharge Disposition: Home or Self Care 11/26/2014 4:00 PM EST - 11/26/2014 11:59 PM EST Hospital Encounter Sander EKG [facility] [place] [address] Chest pain, unspecified Discharge Disposition: Home or Self Care 09/13/2014 1:30 PM EST - 09/13/2014 11:59 PM EST Hospital Encounter [facility]ASC[facility] [address] [place] [address] Javed Curtis MD Leg edema; Leg pain Discharge Disposition: Home or Self Care 10/29/2013 2:01 PM EST - 10/29/2013 11:59 PM EST Hospital Encounter [facility] Mammography [facility] [facility]17 Benita Infante Other screening mammogram Discharge Disposition: Home or Self Care 09/02/2013 10:00 AM EDT - 09/02/2013 11:59 PM EDT Hospital Encounter [facility] XRAY [address] [place] [address] Dennis Mak MD Nausea; Sternum pain; Abdominal pain, acute, epigastric Discharge Disposition: Home or Self Care 08/27/2013 Telephone [facility] [address] [place] [address] Dennis Mak MD Other 08/17/2013 8:00 AM EDT - 08/17/2013 9:15 AM EDT Surgery [facility] PERIOP [address] [place] [address] Moustapha Shaffer, DPMacie BUNIONECTOMY/SIMPLE/ SILVER/OFF SET V 08/17/2013 6:59 AM EDT - 08/17/2013 10:10 AM EDT Hospital Encounter [facility] SAME DAY SURGERY [address] [place] [address] Moustapha Shaffer DPM Discharge Disposition: Home or Self Care 08/12/2013 Orders Only [facility] [address], [address] [place] [address] Dennis Mak MD 08/12/2013 Orders Only [facility] [address], [address] [place] [address] Dennis Mak MD 08/12/2013 Orders Only SEP Gastro [facility] [address], [address] [place] [address] Dennis Mak MD 08/11/2013 9:00 AM EDT - 08/11/2013 11:59 PM EDT Hospital Encounter [facility] PRE-ADMIT TESTING [address] [place] [address] Pat, Ftt Discharge Disposition: Home or Self Care 07/14/2013 1:45 PM EDT - 07/14/2013 11:59 PM EDT Hospital Encounter [facility] D-WING XRAY [facility] [place] [address] Bunion Discharge Disposition: Home or Self Care 07/14/2013 3:10 PM EDT Office Visit [facility] Gastro [facility] [address], [address] [place] [address] Dennis Mak MD Dysphagia (Primary Dx); Family history of colon cancer 07/10/2013 Telephone [facility] Gastro [facility] [address], [address] [place] [address] Dennis aMk MD Other (returning call) 07/16/2012 5:42 AM EDT - 07/16/2012 11:59 PM EDT Hospital Encounter Mobile Mammography Other Location View online schedule for mobile van location [phone] Benita Infante Other screening mammogram Discharge Disposition: Home or Self Care 07/03/2012 11:33 AM EDT - 07/03/2012 11:59 PM EDT Hospital Encounter [facility] [address] [place] [address] Harvey Ba, CRYSTAL Pain in joint, other specified sites Discharge Disposition: Home or Self Care 08/02/2010 9:56 AM EDT - 08/02/2010 11:59 PM EDT Hospital Encounter [facility] [place] [address] Benita Infante Other screening mammogram Discharge [...] 600 mg by mouth daily. Calcium Active Apd-Werdjjkerw-A cetaminop-Caf 52-441-07-30 mg Oral Capsule Take by mouth. Ac [...] Active fluticasone propionate (FLONASE) 50 mcg/actuation Nasl [place], Suspension 1 [place] by Nasal route daily. 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 Overview (05/10/2020): Added automatically from request for surgery [id number] Liver lesion 05/10/2020 Overview (05/10/2020): Added automatically from request for surgery [id number] Hallux valgus of left foot 09/03/2019 Overview (09/03/2019): Added automatically from request for surgery [id number] Hammer toe of left foot 09/03/2019 Overview (09/03/2019): Added automatically from request for surgery [id number] Exostosis 09/03/2019 Overview (09/03/2019): Added automatically from request for surgery [id number] 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/2019 Overview (09/03/2019): Added automatically from request for surgery [id number] Osteoarthritis of right hip 05/19/2019 Polypharmacy 05/19/2019 [...] Sister Social History Smoking Status as of 07/06/2025 Tobacco Use Types Packs/Day Years Used Date [...] Visit [facility] [address] [place] [address] Michaela Palacio MD [address] [place] [address] Medical Devices Implanted Type Area Eyewear Manufacturing Tech Device Identifier Shelf Expiration Date Model / Serial / Lot Shell Acetabular Trident Ii Tritanium D 50mm Screwhole Clust - [id number] Implanted:Qty: 1 on 05/19/2019 by Prakash Viramontes MD at [facility] Right: Hip ERICK:ORTHOPEDI CS 01/08/2024 702-04-50D / / [id number] Insert Trident X 3 0 Degree 36mm D - [id number] Implanted:Qty: 1 on 05/19/2019 by Prakash Viramontes MD at [facility] Right: Hip ERICK:ORTHOPEDI CS 03/05/2024 [id number] / / [id number] 6.5mm Low Profile Hex Screw 30mm - [id number] Implanted:Qty: 1 on 05/19/2019 by Prakash Viramontes MD at [facility] Right: Hip ERICK:ORTHOPEDI CS 04/06/2024 [id number] / / [id number] Size 5 Accolade Ii 127 Deg - [id number] Implanted:Qty: 1 on 05/19/2019 by Prakash Viramontes MD at [facility] Right: Hip ERICK:ORTHOPEDI 04/04/2024 [id number] / / [id number] Head Fem -5mm Ofst Tpr 36mm Hip Blx D V40 Strl - [id number] Implanted:Qty: 1 on 05/19/2019 by Prakash Viramontes MD at [facility] Right: Hip ERICK:ORTHOPEDI 06/19/2023 [id number] / / [id number] Procedures Procedure Name Priority Date/Time Associated Diagnosis [...] 09/04/2019 1:32 PM EDT Breast mass, right 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 Also takes random dose of uivijsfpxy14 mg up to 3 x monthly for [...] LEFT FOOT ; Surgeon: Moustapha Shaffer DPM;Location: [facility] MAIN OR; Service: Orthopedics COLONOSCOPY FOOT SURGERY right bunioun HAND SURGERY right HIP ARTHROPLASTY Right 05/19/2019 right hip total replacement anterior; Surgeon: Prakash Viramontes MD;Location: [facility] MAIN OR; Service: Orthopedics HIP SURGERY left replacement JOINT REPLACEMENT LEFT HIP KNEE SURGERY lt knee arthroscopy TUBAL LIGATION UPPER GASTROINTESTINAL ENDOSCOPY Medications Prior to Admission Medication Sig Dispense Refill Last Dose amLODIPine (NORVASC) 2.5 mg Oral Tablet Take 10 mg by mouth daily.UNSRUE OF DOSAGE 05/18/2019 at 1900 [DISCONTINUED] wainguc-tbcbzqaehlczx-umwfechk (EXCEDRIN EXTRA STRENGTH)250-250-65 mg Oral Tablet Take 1 Tab by mouth every 6 hours as needed forPain. Taking at Unknown time B-complex with vitamin C (VITAMIN B COMPLEX-C ORAL) Take by mouth.05/18/2019 at 1900 CANNABIDIOL, CBD, EXTRACT ORAL Take 1,500 mg by mouth. 05/18/2019 [id number] cetirizine (ZYRTEC) 10 mg Oral Tablet Take [...] Take 450 Units by mouth daily. 05/18/2019 [id number] lactobacillus rhamnosus, GG, (CULTURELLE) 10 billion cell [...] valgus (acquired) Special Needs DR SHAFFER CPT; [address]167 LEFT FOOT 08/07/13 @ 1020 Left message [...] Routine 11/05/2006 10:00 AM EST FL STOMACH/ESOPHAGUS BRUSH POLISHER Routine 006 8:00 AM EST WW MAMMO [...] 5:43 PM CLINICAL HISTORY: M79.671-Pain in right tqme-CNP-07-CM COMPARISON: None. PROCEDURE COMMENTS: XR FOOT RIGHT AP LATERAL AND OBLIQUE FINDINGS: No definite acute fracture or malalignment. First MTP arthrodesis with screws. Chronic appearing deformity of the third proximal phalanx. Mild soft tissue edema. Procedure Note Jeremiah Welch MD - 04/04/2025 XR FOOT RIGHT AP LATERAL AND OBLIQUE, 04/04/2025 5:43 PM CLINICAL HISTORY: M79.671-Pain in right jotv-LKV-57-CM COMPARISON: None. PROCEDURE COMMENTS: XR FOOT RIGHT [...] in right ankle and joints of right enns-BVD-57-CM COMPARISON: None. PROCEDURE COMMENTS: XR ANKLE RIGHT AP LATERAL AND OBLIQUE FINDINGS: No acute fracture or malalignment. Soft tissue swelling around the ankle greatest anteromedially. Procedure Note Jeremiah Welch MD - 04/04/2025 XR ANKLE RIGHT AP LATERAL AND OBLIQUE, 04/04/2025 5:43 PM CLINICAL HISTORY: M25.571-Pain in right ankle and joints of right lies-NAI-74-CM COMPARISON: None. PROCEDURE COMMENTS: XR ANKLE RIGHT [...] IU/mL 02/20/2025 11:18 AM EDT [facility] Blood VENOUS BLOOD / Unknown Venipuncture / Unknown 02/19/2025 11:47 AM EDT 02/19/2025 11:47 AM EDT Narrative [facility] - 02/20/2025 11:18 AM EDT Interferon [...] ORDERABLES Final Re sult [facility] [address] [facility] , [place] [address] * SEDIMENTATION RATE AUTOMATED (02/19/2025 11:47 AM EDT) Sed Rate 5 0 - 30 mm/hr 02/19/2025 4:06 PM EDT [facility] Blood VENOUS BLOOD / Unknown Venipuncture / Unknown 02/19/2025 11:47 AM EDT 02/19/2025 11:47 AM EDT us Michaela Palacio MD HEMATOLOGY ORDERABLES Final Re sult Performing Organization Address [facility] Co de Phone Number [facility] [address] [facility] , [address] [place], [place] [id number] * (ABNORMAL) CBC WITH DIFF (02/19/2025 11:47 [...] 02/19/2025 4:06 PM EDT [facility] Platelet 292 155 - 369 x10(3)/[facility] 02/19/2025 4:06 PM EDT [facility] MPV 10.5 8.8 - 12.5 fL 02/19/2025 4:06 PM EDT [facility] Neut Percent 67.0 % 02/19/2025 4:06 PM EDT [facility] Comment:Neutrophils equals s egs plus bands Imm Gran% 0.4 % 02/19/2025 4:06 PM EDT [facility] Comment:Automated count of m etamyelocytes, myelocytes and promyelocytes. Lymph Percent 24.1 % 02/19/2025 4:06 PM EDT [facility] Milam Percent 6.7 % 02/19/2025 4:06 PM EDT [facility] Eos Percent 1.3 % 02/19/2025 4:06 PM EDT [facility], [facility] Baso Percent 0.5 % 02/19/2025 4:06 PM EDT [facility] Neut # 3.7 1.6 - 6.1 x10(3)/[facility] 02/19/2025 4:06 PM EDT [facility] Comment:Neutrophils equals s egs plus bands IMMGRAN# 0.0 0.0 - 0.1 x10(3)/[facility] 02/19/2025 4:06 PM EDT [facility] Comment:Automated count of m etamyelocytes, myelocytes and promyelocytes. An absolute IG <0.1 is reported as 0.0. Lymph # 1.3 1.2 - 3.9 x10(3)/[facility] 02/19/2025 4:06 PM EDT [facility] Milam # 0.4 0.3 - 0.9 x10(3)/[facility] 02/19/2025 4:06 PM EDT [facility] Eos# 0.1 0.0 - 0.5 x10(3)/[facility] 02/19/2025 4:06 PM EDT [facility] Baso # 0.0 0.0 - 0.1 x10(3)/[facility] 02/19/2025 4:06 PM EDT [facility] Blood VENOUS BLOOD / Unknown Venipuncture / Unknown 02/19/2025 11:47 AM EDT 02/19/2025 11:47 AM EDT Result Abdiaziz Palacio MD HEMATOLOGY ORDERABLES Final Re sult Performing Organization Address [facility] Co de Phone Number [facility] [employer] [address] , [place] [address] * C-REACTIVE PROTEIN (02/19/2025 11:47 AM EDT) CRP <3.00 <=5.00 mg/L 02/19/2025 8:03 PM EDT [facility] [employer] [facility] Blood VENOUS BLOOD / Unknown Venipuncture / Unknown 02/19/2025 11:47 AM EDT 02/19/2025 11:47 AM EDT Result Abdiaziz Palacio MD CHEMISTRY ORDERABLES Final Res ult Performing Organization Address [facility] Phone Number [facility] [employer] [address] , [place] [address] * CREATININE (02/19/2025 11:47 AM EDT) Creatinine 0.77 0.51 - 1.30 mg/dL 02/19/2025 8:03 PM EDT [facility] [employer] [facility] eGFR (CKD-EPIcr 2020) 83 >=60 mL/min/1.7 3 m2 02/19/2025 8:03 PM EDT [facility] [employer] [facility] Comment:Estimated GFR was ca lculated using the CKD-EPIcr (2020) equation refit without race. The equation is recommended by the National Kidney Foundation - [place] [employer] of Nephrology Task Force. Blood VENOUS BLOOD / Unknown Venipuncture / Unknown 02/19/2025 11:47 AM EDT 02/19/2025 11:47 AM EDT Result Abdiaziz Palacio MD CHEMISTRY ORDERABLES Final Res ult Performing Organization Address [facility] Co de Phone Number [facility], [address] , [place] [address] * HEPATIC FUNCTION PANEL (02/19/2025 11:47 AM EDT) Total Protein 6.7 6.4 - 8.3 gm/dL 02/19/2025 8:03 PM EDT [facility] Albumin 3.8 3.2 - 4.6 gm/dL 02/19/2025 8:03 PM EDT [facility] Bili Direct <0.2 0.0 - 0.3 mg/dL 02/19/2025 8:03 PM EDT [facility] Bili Total 0.3 0.2 - 1.3 mg/dL 02/19/2025 8:03 PM EDT [facility] AST 27 <=40 U/L 02/19/2025 8:03 PM EDT [facility] ALT 16 <=41 U/L 02/19/2025 8:03 PM EDT [facility] Alk Phos 90 36 - 123 U/L 02/19/2025 8:03 PM EDT [facility] Blood VENOUS BLOOD / Unknown Venipuncture / Unknown 02/19/2025 11:47 AM EDT 02/19/2025 11:47 AM EDT us Michaela Palacio MD CHEMISTRY ORDERABLES Final Res ult [facility], [address] , [place] [address] * CT VILMA LUNG NODULE FOLLOW UP [...] HISTORY: Follow up lung nodule. R91.1-Solitary pulmonary mumvpx-GWC-30-CM. COMPARISON: 12/27/2023 PROCEDURE COMMENTS: Noncontrast, low-dose, multidetector [...] HISTORY: Follow up lung nodule. R91.1-Solitary pulmonary anfott-RVG-36-CM. COMPARISON: 12/27/2023 PROCEDURE COMMENTS: Noncontrast, low-dose, multidetector [...] Rate 17 < OR = 30 mm/h [facility] 01/02/2024 2:43 PM EST 01/02/2024 2:43 PM EST Michaela Palacio MD [facility]-HEMATOLOGY ORDERABLES Fi nal Result [facility] [address] [place] [address] * HEPATIC FUNCTION PANEL-[facility] (01/02/2024 2:43 PM EST) Only the most recent of2 resultswithin the time period is included. Protein, Total 7.3 6.1 - 8.1 g/dL [facility] Albumin 4.4 3.6 - 5.1 g/dL [facility] Globulin 2.9 1.9 - 3.7 g/dL (calc) [facility] Albumin/Globuli n Ratio 1.5 1.0 [...] ORDERABLES Fin al Result Performing Organization Address [facility] Co de Phone Number [facility] [address] [place] [address] * CREATININE-[facility] (01/02/2024 2:43 PM EST) Only the most recent of2 resultswithin the time period is included. Creatinine 0.72 0.50 - 1.05 mg/dL [facility] EGFR 91 > OR = 60 mL/min/1.73 m2 [facility] 01/02/2024 2:43 PM EST 01/02/2024 2:43 PM EST Michaela Palacio MD [facility]-CHEMISTRY ORDERABLES Fin al Result Performing Organization Address [facility] Co de Phone Number [facility] [address] [place] [address] * C REACTIVE PROTEIN-[facility] (01/02/2024 2:43 PM EST) Only the most recent of3 resultswithin the time period is included. CRP 1.2 <8.0 mg/L [facility] 01/02/2024 2:43 PM EST 01/02/2024 2:43 PM EST us Michaela Palacio MD [facility]-CHEMISTRY ORDERABLES Fin al Result [facility] [address] [facility] [place] [address] * CBC WITH AUTO DIFF-[facility] (01/02/2024 2:43 PM EST) Only the most recent of3 resultswithin the time period is included. WBC 7.4 3.8 - 10.8 Thousand/u L [facility] RBC 4.27 3.80 - 5.10 Million/uL [facility] Hemoglobin 13.7 11.7 - 15.5 g/dL [facility] Hematocrit 40.6 35.0 - 45.0 % [facility] MCV 95.1 80.0 - 100.0 fL [facility] MCH 32.1 27.0 - 33.0 pg [facility] MCHC 33.7 32.0 - 36.0 g/dL [facility] RDW 12.5 11.0 - 15.0 % [facility] Platelets 338 140 - 400 Thousand/u L [facility] MPV 10.1 7.5 - 12.5 fL [facility] Neut# 5,002 1,500 - 7,800 cells/uL [facility] Lymph# 1,717 850 - 3,900 cells/uL [facility] Monocytes(Absol [place]) 540 200 - 950 cells/uL [facility] Eos 111 15 - 500 cells/uL [facility] Baso# 30 0 - 200 cells/uL [facility] Neut Percent 67.6 % [facility] Lymph Percent 23.2 % [facility] Monocytes 7.3 % [facility] Eos Percent 1.5 % [facility] Baso Percent 0.4 % [facility] 01/02/2024 2:43 PM EST 01/02/2024 2:43 PM EST Michaela Palacio MD [facility]-HEMATOLOGY ORDERABLES Fi nal Result Performing Organization Address City/[facility]/ZIP Co de Phone Number [facility] [address] [place] [address] * QUANTIFERON(R)-TB GOLD PLUS, 1-[facility] (01/02/2024 2:43 PM EST) Only the most recent of2 resultswithin the time period is included. [facility] QUANTIFERON(R)-T B GOLD PLUS, 1 [...] T-lymphocytes. For additional information, please refer to https://education.Cozy Queen.eSolar/faq/URC258 (This link is being provided for informational/ educational purposes only.) 01/02/2024 2:43 PM EST 01/02/2024 2:43 PM EST Michaela Palacio MD [facility]-IMMUNOLOGY ORDERABLES Fi nal Result Performing Organization Address City/[facility]/ZIP Co de Phone Number [facility] [address] [place] [address] * CT CHEST ABDOMEN PELVIS W CONTRAST [...] history of other malignant neoplasm of large ihlcgqsxd-ZMP-81-CM. COMPARISON: December 25, [address] and [...] Z85.038-Personal history of other malignant neoplasm oflarge stmkmffpp-OMN-80-CM. COMPARISON: December 25, [address] and [...] - 1.3 mg/dL 12/27/2023 2:33 PM EST [facility] Blood BLOOD SPECIMEN / Unknown 12/27/2023 2:30 PM EST 12/27/2023 2:33 PM EST Rashad Timmons PA-C POINT OF CARE TEST ORDERABLE S Final Result [facility] [address] [place] [address] * ESOPHAGOGASTRODUODENOSCOPY (EGD) (08/02/2023 3:34 [...] None Staff Staff Role Ilana Santiago RN Parole Supervisor MORGAN Hill CRNA, MD Performing Provider MORGAN [...] PM Specimens No specimens collected Leora Monique DECISION ANALYST ENDOSCOPY PROCEDURE ORDER XAVIER Final Result * INTRAOP AIRWAY PLACEMENT (08/02/2023 3:03 PM EDT) Narrative [facility] - 08/02/2023 3:03 PM EDT [place] [...] Insertion attempts: 1 us Reza Sky DO [place] ANESTHESIA Edited Resu lt - Final [facility] [address] [place] [id number] * (ABNORMAL) BASIC METABOLIC PANEL (08/02/2023 11:48 AM EDT) Only the most recent of8 resultswithin the time period is included. Sodium 142 136 - 145 mmol/L 08/02/2023 12:13 PM EDT [facility] Potassium 3.2(L) 3.5 - 5.0 mmol/L 08/02/2023 12:13 PM EDT [facility] Chloride 104 98 - 107 mmol/L 08/02/2023 12:13 PM EDT [facility] Total CO2 28 22 - 29 mmol/L 08/02/2023 12:13 PM EDT [facility] Anion Gap 10 7 - 16 mmol/L 08/02/2023 12:13 PM EDT [facility] Calcium 9.4 8.8 - 10.4 mg/dL 08/02/2023 12:13 PM EDT [facility] Glucose Lvl 102(H) 82 - 100 mg/dL 08/02/2023 12:13 PM EDT [facility] BUN 19 8 - 23 mg/dL 08/02/2023 12:13 PM EDT [facility] Creatinine 0.73 0.51 - 1.30 mg/dL 08/02/2023 12:13 PM EDT [facility] eGFR (CKD-EPIcr 2020) 89 >=60 mL/min/1.7 3 m2 08/02/2023 12:13 PM EDT [facility] Comment:Estimated GFR was ca lculated using the CKD-EPIcr (2020) equation refit without race. The equation is recommended by the National Kidney Foundation - [place] [employer] of Nephrology Task Force. Blood VENOUS BLOOD / Unknown Venipuncture / Unknown 08/02/2023 11:48 AM EDT 08/02/2023 11:56 AM EDT Rip Meyer MD CHEMISTRY ORDERABLES Final Resul t [facility] [address] [place] [address] * COMPREHENSIVE METABOLIC PANEL-[facility] (07/04/2023 2:16 PM [...] Fin al Result [facility] [address] [place] [address] * MM MAMMO DIGITAL BONY SCREEN BILAT (05/16/2023 2:07 PM EDT) Only the most recent of2 resultswithin the time period is included. Anatomical Region Laterality Modality Breast Bilateral Mammography 05/16/2023 2:51 PM EDT Impressions 05/16/2023 2:51 PM EDT Negative (YWJ-Txznerjx-8) ~ RECOMMENDATION: Routine screening mammogram in 1 [...] the next mammogram, in accordance with the [place] [employer] and the Society of Breast Imaging recommendations. Narrative 05/16/2023 2:51 PM EDT Procedure:MM MAMMO DIGITAL BONY SCREEN BILAT ~ Reason for exam: screening, asymptomatic. Z12.31-Encounter for screening mammogram for malignant neoplasm of cxnjca-IHU-28-CM ~ MM MAMMO DIGITAL BONY SCREEN BILAT [...] for screening mammogram for malignant neoplasm of haadbu-NMW-99-CM ~ MM MAMMO DIGITAL BONY SCREEN BILAT Bilateral CC and MLO view(s) were taken. Technologist: Gloria Monte, RT There are scattered fibroglandular densities. Prior study comparison: Compared with prior studies the most recentbeing 03/05/22, 02/09/21 No mammographic evidence of malignancy. ~ IMPRESSION: Negative (WHC-Crilripi-8) ~ RECOMMENDATION: Routine screening mammogram in 1 [...] the next mammogram, in accordance with the [place] [employer] and the Society of Breast Imaging recommendations. R Evangelista [place] [facility] MAMMOGRAPHY ORDERABLES Jill l Result * (ABNORMAL) [...] STOOL Fi nal Result Performing Organization Address [facility] de Phone Number [facility] [address] [place] [address] * CULTURE, ANAEROBIC BACTERIA WITH GRAM STAIN-QUEST (11/26/2022 11:54 AM EST) Bacteria Identified [facility] SEE NOTE [facility] Comment: CULTURE, ANAEROBIC BACTERIA W/GRAM STAIN Micro Number: [id number] Test Status: Final Specimen Source: R knee fluid Specimen Quality: Adequate Gram Stain: No organisms seen Result: No anaerobes isolated. 11/21/2022 9:0 8 AM EST Narrative [facility] - 11/26/2022 11:54 AM EST FASTING: UNKNOWN Michaela Palacio MD [facility]-MICROBIOLOGY ORDERABLES Final Result Performing Organization Address [facility] de Phone Number [facility] [address] [place] [address] * CULTURE, AEROBIC BACTERIA-QUEST (11/26/2022 11:54 AM EST) Aerobic Bacterial Culture SEE NOTE [facility] Comment: CULTURE, AEROBIC BACTERIA Micro Number: [id number] Test Status: Final Specimen Source: R knee fluid Specimen Quality: Adequate Result: No Growth NO COLLECTION DATE RECEIVED. WE HAVE USED THE DATE THE SPECIMEN WAS RECEIVED BY THIS LABORATORY THE COLLECTION DATE. IF THIS IS INCORRECT, PLEASE CONTACT CLIENT SERVICES. PHONE NUMBER: [phone] 11/21/2022 9:0 8 AM EST Narrative [facility] - 11/26/2022 11:54 AM EST FASTING: UNKNOWN Michaela Palacio MD [facility]-MICROBIOLOGY ORDERABLES Final Result Performing Organization Address [facility] de Phone Number [facility] [address] [facility] [place] [address] * TEST IN QUESTION - MISC. QUESTION (11/26/2022 11:54 AM EST) Service Comment Ques remi [facility] Comment: There is a question regarding the following specimen submitted and/or the test requested. QUESTION: VERIFY CARLOS NEED [id number] Wil[facility] Resolution: [facility]bur [facility] Comment: COMMENTS [facility] Comment: REQUESTED INFORMATION AUTHORIZED SIGNATURE TO PREVENT FURTHER DELAYS IN TESTING, PLEASE COMPLETE INFORMATION ABOVE AND FAX TO [phone] TO RESOLVE THIS ORDER. 11/21/2022 9:0 8 AM EST Narrative [facility] - 11/26/2022 11:54 AM EST FASTING: UNKNOWN Michaela Palacio MD [facility] TEST IN QUESTION CODES F inal Result [facility] [address] [place] [address] * CRYSTALS, SYNOVIAL FLUID-QUEST (11/26/2022 11:54 AM EST) Specimen Source R KNEE FLUID [facility] Crystals, Synovial Fluid NONE SEEN /HPF [facility] Comment:No crystals found 11/21/2022 9:0 8 AM EST Narrative [facility] - 11/26/2022 11:54 AM EST FASTING: UNKNOWN us Michaela Palacio MD [facility]-BODY FLUIDS AND STOOL Fi nal Result [facility] [address] [place] [address] * CARCINOEMBRYONIC ANTIGEN (09/10/2022 2:41 PM EDT) Only the most recent of4 resultswithin the time period is included. CEA 1.21 ng/mL 09/10/2022 10:10 PM EDT [facility] Comment: Non-Smokers: <= 5.0 ng/mL Smokers: <= 10.0 ng/mL [employer] uses the [employer] Director CEA assay, which is intended to be [...] Timmons PA-C CHEMISTRY ORDERABLES Final R esult [facility] [address] [facility] , [place] [address] * [facility] LOWER EXTREMITY VENOUS RIGHT (08/17/2021 12:09 [...] the contralateral left commonfemoral vein. Judy Gallego DECISION ANALYST IMG VASCULAR ORDERABLES Final Result * GMED COLONOSCOPY (08/14/2021 11:00 AM EDT) 08/14/2021 11:0 0 AM EDT Impressions [facility] - 08/14/2021 10:57 AM EDT Polyps (3 mm to 4 mm) in the descending colon. (Polypectomy). Previous Surgery in the colon. Plan: Colonoscopy in 3 years. This section is an excerpt of the full report. Dennis Mak MD GI PROCEDURE ORDERABLES Fin al Result [facility] [address] [place], [place] [id number] * PATHOLOGY TISSUE REQUEST (08/14/2021 11:00 AM EDT) Only the most recent of3 resultswithin the time period is included. CASE REPORT Surgical Pathology Case: [id number] Authorizing Provider: Dennis Mak MD Collected: 08/14/2021 1100 Ordering Location: [facility] Received: 08/14/2021 1544 Pathologist: Manuel Brito MD Specimen: Large Intestine, Left/Descending Colon 08/15/2021 11:55 AM EDT [facility] FINAL DIAGNOSIS Descending Colon Polyp x 2: - Sessile Serrated Polyps, Negative For High-Grade Dysplasia. 08/15/2021 11:55 AM EDT [facility] at 1155 EDT GROSS DESCRIPTION [...] 08/14/2021 3:52 PM 08/15/2021 11:55 AM EDT [facility] MICROSCOPIC DESCRIPTION Microscopic examination is performed and the findings corroborate the diagnosis. 08/15/2021 11:55 AM EDT [facility] EMBEDDED IMAGES 08/15/2021 11:55 AM EDT [facility] Tissue DESCENDING COLON STRUCTURE / Unknown 08/14/2021 11:00 AM EDT 08/14/2021 3:44 PM EDT us Dennis Mak MD PATHOLOGY ORDERABLES Final Result [facility] [address] [place] [address] [facility] [address] [place] [id number] * CORONAVIRUS 2019 (08/11/2021 2:06 PM EDT) Only the most recent of2 resultswithin the time period is included. CORONAVIRUS 9867-LNVE-TGT-2 Not Detected Not Detected 08/12/2021 1:19 PM EDT [facility] Comment: Caution should be exercised when interpreting [...] of COVID-19. Test is performed on the [employer] platform under the FDA's Emergency Use Authorization (EUA). [employer] Provider Fact Sheet: https://www.fda.gov/media/215800/download Hologic Patient Fact Sheet: https://www.fda.gov/media/304824/download Performed at [facility] [address] [place] [address] CLIA [id number] Swab BOTH ANTERIOR NARES / Unknown 08/11/2021 2:06 PM EDT 08/11/2021 2:06 PM EDT us Dennis Mak MD MICROBIOLOGY - GENERAL ORDNicola FANG Final Result [facility] [address] [facility], [place] [address] * XR HAND LEFT PA LATERAL AND [...] 3:58 PM CLINICAL HISTORY: M79.642-Pain in left tyht-XEW-92-CM COMPARISON: None. PROCEDURE COMMENTS: XR HAND LEFT [...] 3:58 PM CLINICAL HISTORY: M79.642-Pain in left rxfo-EYU-33-CM COMPARISON: None. PROCEDURE COMMENTS: XR HAND LEFT [...] office of the ordering clinician. Judy Gallego DECISION ANALYST IMG DIAGNOSTIC IMAGING ORDERAB LES Final Result * MM MAMMO DIGITAL BONY DIAGN BILAT (02/09/2021 11:13 AM EDT) Only the most recent of2 resultswithin the time period is included. Anatomical Region Laterality Modality Breast Bilateral Mammography 02/09/2021 11:2 9 AM EDT Impressions 02/09/2021 11:29 AM EDT Negative (HQU-Lrftsctj-2) ~ RECOMMENDATION: Routine screening mammogram in 1 [...] the next mammogram, in accordance with the [place] [employer] and the Society of Breast Imaging recommendations. Narrative 02/09/2021 11:29 AM EDT Procedure:MM MAMMO DIGITAL BONY DIAGN BILAT ~ Reason for exam: clinical finding. N64.89-Other specified disorders of zhnicd-RVV-85-CM. Follow-up asymmetric right breast density. No current [...] exam: clinical finding. N64.89-Other specified disorders of huvuof-TJQ-35-CM. Follow-upasymmetric right breast density. No current clinical [...] distortion or suspicious calcifications. ~ IMPRESSION: Negative (HWZ-Guqqnlqq-4) ~ RECOMMENDATION: Routine screening mammogram in 1 [...] the next mammogram, in accordance with the [place] [employer] and the Society of Breast Imaging recommendations. Cristi Sosa MD IMG MAMMOGRAPHY ORDERABLES F inal Result * EXTRA HERNANDEZ URINE CX (07/28/2020 10:07 AM EDT) Urine 07/28/2020 10:0 7 AM EDT 07/28/2020 10:07 AM EDT us Rashad Timmons PA-C MICROBIOLOGY - GENERAL ORDER XAVIER Final Result [address] [address] * (ABNORMAL) URINALYSIS (07/28/2020 10:07 AM EDT) UA Color Yellow 07/28/2020 3:23 PM EDT [facility] UA Appear Cloudy(A) Clear 07/28/2020 3:23 PM EDT [facility] UA Glucose Negative Negative mg/dL 07/28/2020 [...] ORDERABLES Final Resul t [facility] [address] [facility] , [place] [address] * URINE CULTURE (NO STAIN) (07/28/2020 10:07 AM EDT) Culture No growth at 30 hours. 07/30/2020 10:27 AM EDT [facility] Urine 07/28/2020 10:0 7 AM EDT 07/28/2020 3:23 PM EDT Rashad Timmons PA-C MICROBIOLOGY - GENERAL ORDER XAVIER Final Result Performing Organization Address [facility] de Phone Number [facility] [address] , [place] [address] * MAGNESIUM LEVEL (06/21/2020 10:39 AM EDT) Pathologist [facility] Magnesium 2.1 1.6 - 2.4 mg/dL 06/21/2020 11:23 AM EDT [facility] Blood VENOUS BLOOD / Unknown Venipuncture / Unknown 06/21/2020 10:39 AM EDT 06/21/2020 10:39 AM EDT Gonzalez Vargas MD CHEMISTRY ORDERABLES Final R esult Performing Organization Address [facility] de Phone Number [facility] [address] , [place] [address] * (ABNORMAL) COMPREHENSIVE METABOLIC PANEL (06/21/2020 10:39 [...] 06/21/2020 11:34 AM EDT [facility] Glucose Lvl 101(H) 82 - 100 mg/dL 06/21/2020 11:34 AM EDT [facility] BUN 14 8 - 23 mg/dL 06/21/2020 11:34 AM EDT [facility] Creatinine 0.66 0.51 - 1.30 mg/dL 06/21/2020 11:34 AM EDT [facility] Albumin 4.0 3.2 - 4.6 gm/dL 06/21/2020 11:34 AM EDT [facility] Total Protein 7.1 6.4 - 8.3 gm/dL 06/21/2020 11:34 AM EDT [facility] Bili Total 0.2 0.1 - 1.3 mg/dL 06/21/2020 11:34 AM EDT [facility] ALT 5 <=41 U/L 06/21/2020 11:34 AM EDT [facility] AST 12 <=40 U/L 06/21/2020 11:34 AM EDT [facility] Alk Phos 65 36 - 123 U/L 06/21/2020 11:34 AM EDT [facility] GFR Afr Am 107 >=60 mL/min/1.7 3 m2 06/21/2020 11:34 AM EDT [facility] GFR Non Afr Am 93 >=60 mL/min/1.7 3 m2 06/21/2020 11:34 AM EDT [facility] Comment: This estimated GFR was [...] ORDERABLES Final R esult Performing Organization Address [facility] Co de Phone Number [facility] [address] [facility], [place] [address] [facility] [address] [place] [address] * SCANNED RHYTHM STRIPS (06/06/2020 [...] time period is included. ECG INTERPRET NSR [facility] 06/04/2020 7:32 AM EDT Narrative [facility] - 06/04/2020 8:50 AM EDT NAIF AICU/ROUTINE CA 0.12 QRS 0.10 RR 0.72 QT 0.42 See Clinical Report link for waveform capture us Unknown Provider POINT OF CARE CARDIOLOGY Final Result Performing Organization Address City/[facility]/ZIP Co de Phone Number [facility] [address] [place] [address] * EK EKG 12 LEAD (06/03/2020 2:24 PM EDT) Only the most recent of4 resultswithin the time period is included. Anatomical Region Laterality Modality Electrocardiogra phy 06/03/2020 3:02 PM EDT Impressions 06/03/2020 3:[address] [facility] Test Date: 2020-06-03 Pat Name: [place]OO [place] Department: DEPID Room: 2330 Gender: Female Director Corporate Security: PEDRO : 1955 Requested By: RASHAD TIMMONS Order Number: [id number] Reading MD: Arcadio Rooney MD Measurements Intervals [place] Rate: 91 P: 59 CA: 134 QRS: 42 QRSD: 100 T: 41 QT: 349 QTc: 430 Interpretive Statements SINUS RHYTHM WITH OCCASIONAL ECTOPIC PREMATURE COMPLEXES NONSPECIFIC ST & T-WAVE ABNORMALITY Electronically Signed On 06-03-2020 15:35:59 EDT by Arcadio Rooney MD Narrative Procedure Note Arcadio Rooney MD - 06/03/[address] [facility] Test Date: 2020-06-03 Pat Name: [place]OO [place] Department: DEPID Room: 233 Gender: Female Director Corporate Security: PEDRO : 1955 Requested By: RASHAD TIMMONS Order Number: [id number] Reading MD: Arcadio oRoney MD Measurements Intervals [place] Rate: 91 P: 59 CA: 134 QRS: 42 QRSD: 100 T: 41 QT: 349 QTc: 430 Interpretive Statements SINUS RHYTHM WITH OCCASIONAL ECTOPIC PREMATURE COMPLEXES NONSPECIFIC ST & T-WAVE ABNORMALITY Electronically Signed On 06-03-2020 15:35:59 EDT by Arcadio Rooney MD us Rashad MORIN-[facility] IMG ECG ORDERABLES Final Res ult * Peripheral Block by Anesthesia (06/02/2020 2:25 PM EDT) Narrative [facility] - 06/02/2020 2:25 PM EDT [facility] [...] Hernandez MD ANESTHESIA [place] [address] * [employer] MISMATCH REPAIR (MMR) IHC PANEL (06/02/2020 1:51 PM EDT) [employer] Result H&E (Comments) = B) Sigmoid Colon [...] MLH1 in formalin-fixed paraffin-embedded tissue sections. A polymerFlipaste based system was used for detection. MLH1 (Disclaimer) = MMR references ranges are based on Mixers` internal validation, and we recommend cases with equivocal staining be confirmed with microsatellite instability (MSI) testing. MLH1 (Control Statement) = The digitized slide(s) was/were adequate for quantitative image analysis. All controls were reviewed and showed appropriate positive and negative immunoreactivity. MLH1 (Image Analysis Statement) = Whole slide image capture was performed with the [employer] ScanScope and quantitative computer-assisted image analysis using [employer] software. MSH2 (Intended Use) = Mismatch repair [...] MSH2 in formalin-fixed paraffin-embedded tissue sections. A polymerFlipaste based system was used for detection. MSH6 [...] MSH6 in formalin-fixed paraffin-embedded tissue sections. A polymerFlipaste based system was used for detection. PMS2 [...] PMS2 in formalin-fixed paraffin-embedded tissue sections. A [employer] based system was used for detection. [facility] 06/02/2020 1:51 PM EDT Narrative [facility] - 06/13/2020 1:22 PM EDT Requesting Provider: Gonzalez Hollingsworth Specimen = [id number] us Manuel Brito MD PATHOLOGY ORDERABLES Final Res ult [facility] [address] [place] [address] * INTRAOP AIRWAY PLACEMENT (06/02/2020 8:44 AM EDT) Narrative [facility] - 06/02/2020 8:44 AM EDT Annalise [...] AADAMS RRNA Title: RNSA Kayode To MD [place] ANESTHESIA Edited Result - Final Performing Organization Address [facility] Co de Phone Number [facility] [address] [place] [address] * BB HISTORY CHECK (05/20/2020 12:22 PM EDT) Only the most recent of2 resultswithin the time period is included. BB HISTORY CHECK (1) Previous History OK 05/20/2020 12:53 PM EDT [facility] Blood VENOUS BLOOD / Unknown Venipuncture / Unknown 05/20/2020 12:22 PM EDT 05/20/2020 12:33 PM EDT Gaby Garcia DECISION ANALYST BLOOD BANK ORDERABLES Final R esult Performing Organization Address [facility] Co de Phone Number [facility] [place] [address] * SURGERY DATE (05/20/2020 12:22 PM EDT) Only the most recent of2 resultswithin the time period is included. Surgery Date (1) Complete 05/20/2020 12:54 PM EDT [facility] Blood VENOUS BLOOD / Unknown Venipuncture / Unknown 05/20/2020 12:22 PM EDT 05/20/2020 12:33 PM EDT Gaby Garcia DECISION ANALYST BLOOD BANK ORDERABLES Final R esult Performing Organization Address City/[facility] Co de Phone Number [facility] [place] [address] * ABORH (05/20/2020 12:22 PM EDT) Only the most recent of2 resultswithin the time period is included. ABORH Int A POS 05/20/2020 1:2 0 PM EDT [facility] Blood VENOUS BLOOD / Unknown Venipuncture / Unknown 05/20/2020 12:22 PM EDT 05/20/2020 12:33 PM EDT Gaby Garcia [facility] BLOOD BANK ORDERABLES Final R esult Performing Organization Address City/[facility]/ZIP Co de Phone Number [facility] [address] [place] [address] * ANTIBODY SCREEN IGG (05/20/2020 12:22 PM EDT) Only the most recent of2 resultswithin the time period is included. ABSC IgG Int Negative 05/20/2020 1:34 PM EDT [facility] Blood VENOUS BLOOD / Unknown Venipuncture / Unknown 05/20/2020 12:22 PM EDT 05/20/2020 12:33 PM EDT Gaby Garcia [facility] BLOOD BANK ORDERABLES Final R [facility] Performing Organization Address City/[facility] Co de Phone Number 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 Sample Type Capillary 04/28/2020 8:35 AM EDT [facility] Patient Status Non-Critical Patient 04/28/2020 8:35 AM EDT [facility] Blood BLOOD SPECIMEN / Unknown 04/28/2020 8:34 AM EDT 04/28/2020 8:35 AM EDT Rsahad Timmons PA-C POINT OF CARE TEST ORDERABLE S Final Result Performing Organization Address [facility] de Phone Number [facility] [address] [place] [address] * GMED EGD-COLONOSCOPY (04/15/2020 10:20 AM EDT) 04/15/2020 10:2 0 AM EDT Impressions [facility] - 04/15/2020 11:24 AM EDT Plan: CT scan chest/abdomen/pelvis with contrast Colonoscopy in 1 year. This section is an excerpt of the full report. Dennis Mak MD GI PROCEDURE ORDERABLES Fin al Result Performing Organization Address [facility] Co de Phone Number [facility] [address] [place] [address] * CORONAVIRUS 2019 (COVID-19) - REF LAB (04/12/2020 11:25 AM EDT) [facility] CORONAVIRUS [id number] Not Detected 04/14/2020 11:25 AM EDT [facility] [...] In compliance with this authorization, please visit [email or web address] for more information and to access the applicable information sheets. If the result is Not Detected, this does not rule out the presence of PCR inhibitors in the patient specimen or assay specific nucleic acid in concentrations below the level of detection by the assay. Performed by [facility], [address] [place] [address] www.[employer], Craig Machuca MD, Lab. Director Coronavirus [employer] Source Nasopharyngeal 04/14/2020 11:25 AM EDT swabr LABORATORMorey's Seafood International S[employer] INC Swab NASOPHARYNGEAL STRUCTURE / Unknown 04/12/2020 11:25 AM EDT 04/12/2020 11:25 AM EDT us Dennis Mak MD LAB SEND OUT ORDERABLES Fin al Result [facility] [address] [place] [address] * MRI KNEE LEFT WO CONTRAST (12/02/2019 [...] CONTRAST, 12/02/2019. CLINICAL HISTORY: M25.562-Pain in left psgz-JIH-17-CM COMPARISON: None. TECHNIQUE: Multiplanar, multisequence MR images [...] CONTRAST, 12/02/2019. CLINICAL HISTORY: M25.562-Pain in left ofad-ZZE-45-CM COMPARISON: None. TECHNIQUE: Multiplanar, multisequence MR images [...] Advanced tricompartmental osteoarthrosis. us Ming Santamaria MD [facility] MRI ORDERABLES Final Res ult * MRI [...] CONTRAST, 12/02/2019. CLINICAL HISTORY: M25.511-Pain in right vokcqjfo-CCH-68-CM COMPARISON: None. TECHNIQUE: Multiplanar, multisequence MR images [...] CONTRAST, 12/02/2019. CLINICAL HISTORY: M25.511-Pain in right wpiqagov-XTH-44-CM COMPARISON: None. TECHNIQUE: Multiplanar, multisequence MR images [...] CONTRAST, 12/02/2019. CLINICAL HISTORY: M25.512-Pain in left iicugfaf-UQN-19-CM COMPARISON: None. TECHNIQUE: Multiplanar, multisequence MR images [...] CONTRAST, 12/02/2019. CLINICAL HISTORY: M25.512-Pain in left wpgveznr-LIG-11-CM COMPARISON: None. TECHNIQUE: Multiplanar, multisequence MR images [...] - 2.5 % 09/28/2019 4:08 PM EST [facility] Retic # 40.8 40.0 - 110.0 x10(3)/mcL 09/28/2019 4:08 PM EST [facility] Imm. Retic Fraction % 8.5 3.1 - 17.6 % 09/28/2019 4:08 PM EST [facility] Retic Hgb 36.8 23.0 - 38.0 pg 09/28/2019 4:08 PM EST [facility] Blood VENOUS BLOOD / Unknown Venipuncture / Unknown 09/28/2019 3:36 PM EST 09/28/2019 3:36 PM EST Narrative PREFERRED [employer] [facility] - 09/28/2019 4:08 PM EST Reticulocyte hemoglobin [...] [phone]. (4)Jj Lan., et al. 2010. Blood [id number]:[phone]. us Dennis Mak MD HEMATOLOGY ORDERABLES Final Result [employer], [facility] [address] [facility] , [address] [place], [place] [id number] * (ABNORMAL) IRON/UIBC (09/28/2019 3:36 PM EST) [...] CHEMISTRY ORDERABLES Final Result [facility], [facility] [address] [facility] , [place] [address] * (ABNORMAL) CBC (09/28/2019 3:36 PM EST) [...] x10(3)/mcL 09/28/2019 4:08 PM EST PREFERRED [facility] MPV 9.9 8.8 - 12.5 fL 09/28/2019 4:08 PM EST [facility]REF[facility]ED [employer] Blood VENOUS BLOOD / Unknown Venipuncture / Unknown 09/28/2019 3:36 PM EST 09/28/2019 3:36 PM EST us Dennis Mak MD HEMATOLOGY ORDERABLES Final Result Performing Organization Address [facility] de Phone Number [facility] [employer] [address] , [place] [address] * FERRITIN (09/28/2019 3:36 PM EST) Pathologist [facility] Ferritin 25 13 - 150 ng/mL 09/28/2019 4:39 PM EST [facility]REF[facility] [employer] Blood Venipuncture / Unknown 09/28/2019 3:36 PM EST 09/28/2019 3:36 PM EST Narrative [facility]REF[facility] [employer] - 09/28/2019 4:39 PM EST Ingestion of del doses of biotin (>5 mg/day) taken within 8 hours of drawing blood sample can interfere with this immunoassay test. us Dennis Mak MD CHEMISTRY ORDERABLES Final Result Performing Organization Address [facility] de Phone Number [facility] [employer] [address] , [place] [address] * MM US BREAST LIMITED RIGHT (09/11/2019 1:02 PM EDT) Anatomical Region Laterality Modality Breast Right Ultrasound 09/11/2019 2:42 PM EDT Impressions 09/11/2019 2:42 PM EDT Benign finding (ERW-Rnhgjgkf-4) ~ RECOMMENDATION: Follow-up diagnostic mammogram of both [...] N63.10-Unspecified lump in the right breast, unspecified oicjimwq-ATK-45-CM ~ MM US BREAST LIMITED RIGHT Standard [...] mass. N63.10-Unspecified lump in the right breast, sujdbcznnqfhpbhqtwi-KTS-33-CM ~ MM US BREAST LIMITED RIGHT Standard [...] shadowing or distortion. ~ IMPRESSION: Benign finding (MVW-Vdvvtnrl-0) ~ RECOMMENDATION: Follow-up diagnostic mammogram of both [...] IMG MAMMOGRAPHY ORDERABLES F inal Result * SERVER PROGRAMMER CYTOLOGY REQUEST (PAP ONLY) (09/03/2019 11:09 AM EDT) CASE REPORT Gynecologic Cytology Report Case: [id number] Authorizing Provider: Cristi Sosa MD Collected: 09/03/2019 1109 Ordering Location: [facility] Received: 09/03/2019 1109 First Screen: Kenny Turner CT Specimen: LIQUID-BASED PAP - CERVICAL/ENDOCERV ICAL, Cervix, Endocervical 09/04/2019 10:37 AM EDT [facility] PAP FINAL DIAGNOSIS Negative for intraepithelial lesion or malignancy 09/04/2019 10:37 AM EDT [facility] at 1037 EDT MICROSCOPIC DESCRIPTION Microscopic examination is performed and the findings corroborate the diagnosis. 09/04/2019 10:37 AM EDT [facility] PAP SMEAR ADEQUACY Satisfactory for evaluation 09/04/2019 10:37 AM EDT [facility] ENDOCERVICAL T-ZONE Transformation zone present 09/04/2019 10:37 AM EDT [facility] EMBEDDED IMAGES 9 10:37 AM EDT [facility] PAP DISCLAIMER The Pap Smear is a screening test that aids in the detection of cervical cancer and cancer precursors. Both false positive and false negative results can occur. The test should be used at regular intervals, and positive results should be confirmed before definitive therapy. Processed using the ThinPrep Plant Engineering Supervisor Automated cytology screening device ([employer]). 09/04/2019 10:37 AM EDT [facility] Thin Prep ENDOCERVICAL STRUCTURE / Unknown 09/03/2019 11:09 AM EDT 09/03/2019 11:09 AM EDT Cristi Sosa MD CYTOLOGY ORDERABLES Final Re sult [facility] [address] [place] [address] * XR FOOT LEFT AP LATERAL AND [...] 15.7 g/dL 05/20/2019 7:57 AM EDT PREFERRED [employer] Hct 30.3(L) 34.0 - 45.0 % 05/20/2019 7:57 AM EDT [facility]REF[facility]ED [employer] Blood Venipuncture / Unknown 05/20/2019 7:29 AM EDT 05/20/2019 7:35 AM EDT us Prakash Viramontes MD HEMATOLOGY ORDERABLES Final Result [facility] [employer] [address] [place] [address] , [place] [address] * XR PELVIS (05/19/2019 1:39 PM EDT) [...] of fracture or dislocation. Prakash Viramontes MD [facility] DIAGNOSTIC IMAGING ORDER XAVIER Final Result * FL < 1 HOUR (05/19/2019 1:02 PM EDT) Narrative PACS - 05/19/2019 2:30 PM EDT Fluoroscopy was performed. The radiologist was not in attendance. No permanent images were obtained. This dictation is being made for record keeping purposes. Prakash Viramontes MD [facility] FLUOROSCOPY ORDERABLES F inal Result PACS * [...] AIRWAY PLACEMENT (05/19/2019 12:09 PM EDT) Narrative [facility] - 05/19/2019 12:09 PM EDT Eliseo [...] motion Condition: Atraumatic Insertion attempts: 1 Title: DEHYDRATOR us Eliseo Aguayo CRNA CA ANESTHESIA Final Re sult [facility] [address] [place] [address] * Peripheral Block by Anesthesia (05/19/2019 11:30 AM EDT) Narrative [facility] - 05/19/2019 11:30 AM EDT Esther [...] surrounding nerve by ultrasonographc visualization Additional Notes [facility] Procedure Note Esther Zarate MD - [...] surrounding nerve by ultrasonographc visualization Additional Notes [facility] us Esther Zarate MD ANESTHESIA ORDERABLES Fin al Result [place] [id number] * (ABNORMAL) VITAMIN B12/ FOLIC ACID (05/07/2019 12:11 PM EDT) Vitamin B12 312 211 - 946 pg/mL 05/07/2019 1:48 PM EDT [facility] [employer] [facility] Folate >16.00(H) 4.50 - 16.00 ng/mL 05/07/2019 1:48 PM EDT [facility] [employer] Blood Venipuncture / Unknown 05/07/2019 12:11 PM EDT 05/07/2019 12:11 PM EDT Narrative [employer] [facility] - 05/07/2019 1:48 PM EDT Ingestion of del doses of biotin (>5 mg/day) taken within 8 hours of drawing blood sample can interfere with this immunoassay test. us Vikas Burnham MD CHEMISTRY ORDERABLES Final Resul t Performing Organization Address [facility] Co de Phone Number [facility] [employer] [address] , [place] [address] * TSH REFLEX (05/07/2019 12:11 PM EDT) Pathologist [facility] TSH Reflex 0.963 0.270 - 4.200 mcIU/mL 05/07/2019 1:32 PM EDT [facility] Blood Venipuncture / Unknown 05/07/2019 12:11 PM EDT 05/07/2019 12:11 PM EDT Narrative [facility] - 05/07/2019 1:32 PM EDT Ingestion of del doses of biotin (>5 mg/day) taken within 8 hours of drawing blood sample can interfere with this immunoassay test. us Vikas Burnham MD CHEMISTRY ORDERABLES Final Resul t Performing Organization Address [facility]/ZIP Co de Phone Number [facility] [employer] [address] , [place] [address] * PT / INR (05/07/2019 12:05 PM EDT) Pathologist [facility] PT 10.7 9.7 - 12.5 second(s) 05/07/2019 1:08 PM EDT [facility] INR 0.95 0.86 - 1.10 no units 05/07/2019 1:08 PM EDT [facility] Comment: Level of Therapy Indications Target INR Range Standard Dose Treatment and prophylaxis of venous 2.0 - 3.0 thrombosis, pulmonary embolism High Dose High risk patients with mechanical 2.5 - 3.5 heart valves Blood VENOUS BLOOD / Unknown Venipuncture / Unknown 05/07/2019 12:05 PM EDT 05/07/2019 12:05 PM EDT us Prakash Viramontes MD HEMATOLOGY ORDERABLES Final Result [employer] [address] [facility] , [place] [address] * MRI PELVIS WO CONTRAST (01/28/2019 1:36 [...] CONTRAST, 01/28/2019. CLINICAL HISTORY: M25.551-Pain in right hba-DVD-55-CM M25.552-Pain in left fko-BUV-05-CM COMPARISON: MRI left hip 07/03/2012. TECHNIQUE: Multiplanar, [...] CONTRAST, 01/28/2019. CLINICAL HISTORY: M25.551-Pain in right jqo-FRF-65-CM M25.552-Pain in left gyi-XRM-14-CM COMPARISON: MRI left hip 07/03/2012. TECHNIQUE: Multiplanar, [...] fascia and tendon at neck level, initial lvtxtvzqp-WSZ-77-CM S29.019A-Strain of muscle and tendon of unspecified wall of thorax, initial dpsjazcel-WHD-33-CM S39.012A-Strain of muscle, fascia and tendon of lower back, initial wmeslfayo-CMI-86-CM COMPARISON: None PROCEDURE COMMENTS: Multiplanar multiecho MR [...] muscle, fascia and tendon at necklevel, initial ekawaecja-SEC-34-CM S29.019A-Strain of muscle and tendon of unspecified wall of thorax,initial apikpbnch-GCP-54-CM S39.012A-Strain of muscle, fascia and tendon of lower back, initial nfozjzxlm-XOJ-76-CM COMPARISON: None PROCEDURE COMMENTS: Multiplanar multiecho MR [...] fascia and tendon at neck level, initial rxskxzvev-KGF-34-CM S29.019A-Strain of muscle and tendon of unspecified wall of thorax, initial shvkmcnoh-SQD-01-CM S39.012A-Strain of muscle, fascia and tendon of lower back, initial kqrkqglef-NNE-03-CM COMPARISON: None. PROCEDURE COMMENTS: Multiplanar multiecho MR [...] muscle, fascia and tendon at necklevel, initial tvdyaokux-PUH-98-CM S29.019A-Strain of muscle and tendon of unspecified wall of thorax,initial moloysllm-FHA-78-CM S39.012A-Strain of muscle, fascia and tendon of lower back, initial tgpnsodtp-YYC-83-CM COMPARISON: None. PROCEDURE COMMENTS: Multiplanar multiecho MR imaging of the thoracicspine. Sagittal imaging of the entire thoracic spine with selected axial imaging. FINDINGS: Moderate dextroscoliosis noted. No subluxation detected. No fractureidentified. No bone marrow edema or suspicious bony lesions detected. Degenerativechange of intervertebral discs noted with multilevel disc space narrowingdesiccation and disc bulge or shallow protrusions noted most prominent at T9-10 wrkX21-50. But these disc protrusions are mild. No [...] fascia and tendon at neck level, initial fkesmlryr-WXN-13-CM S29.019A-Strain of muscle and tendon of unspecified wall of thorax, initial dljojjzpj-NKL-49-CM S39.012A-Strain of muscle, fascia and tendon of lower back, initial kqcxqmzkx-IAA-80-CM COMPARISON: MR cervical spine June 14, 2015 [...] muscle, fasciaand tendon at neck level, initial tuyutqnaf-IPF-55-CM S29.019A-Strain of muscle and tendon of unspecified wall of thorax,initial mkdryurve-LJH-21-CM S39.012A-Strain of muscle, fascia and tendon of lower back, initial nxbspenic-DTG-47-CM COMPARISON: MR cervical spine June 14, 2015 [...] Moderate to marked left and moderate right Y7njgcjcjse narrowing representing potential mechanisms of nerve root impingement.Mild central stenosis. Similar findings on prior. C5/C6: Broad-based discogenic disease with associated this marginspurring and mild indentation of the subarachnoid space. Mild to moderate left B6mezmngbzl narrowing. C6/C7: Mild discogenic disease with associated [...] level by level discussion. Ming Santamaria MD [facility] MRI ORDERABLES Final Res ult * NM BONE SCAN WHOLE BODY (09/18/2018 3:23 PM EST) Anatomical Region Laterality Modality Nuclear Medicine 09/18/2018 3:23 PM EST Impressions 09/18/2018 4:32 PM EST 1. Multifocal axial and appendicular degenerative changes. Narrative 09/18/2018 4:32 PM EST WHOLE BODY BONE SCAN, 09/18/2018 3:23 PM CLINICAL HISTORY: M54.5-Low back voxz-HAC-43-CM COMPARISON: 2 view chest October 30, 2016 PROCEDURE COMMENTS: 20.2 mCi of Gk56a-DHM. Whole body bone scanning per protocol. FINDINGS: [...] 09/18/2018 3:23 PM CLINICAL HISTORY: M54.5-Low back jtha-KIR-04-CM COMPARISON: 2 view chest October 30, 2016 PROCEDURE COMMENTS: 20.2 mCi of We76c-FOB. Whole body bone scanningper protocol. FINDINGS: There is multifocal abnormal uptake in the spine, including posteriorelements in the upper and mid thoracic spine as well as upper lumbar spine. Theseare likely degenerative. There is additional degenerative change at the left hip, rightsternoclavicular joint, both knees, and both feet. IMPRESSION: 1. Multifocal axial and appendicular degenerative changes. Ming Santamaria MD [facility] NM ORDERABLES Final Resu lt * CT HEAD WO CONTRAST (09/18/2018 12:49 PM EST) Anatomical Region Laterality Modality Head Computed Tomogra phy 09/18/2018 12:4 9 PM EST Impressions 09/18/2018 1:09 PM EST No acute intracranial abnormality. Narrative 09/18/2018 1:[address] HEAD WO CONTRAST 09/18/2018 12:49 PM CLINICAL HISTORY: S09.90XS-Unspecified injury of head, ggrqkfv-SKV-54-CM COMPARISON: None. PROCEDURE COMMENTS: Routine noncontrast head [...] 12:49 PM CLINICAL HISTORY: S09.90XS-Unspecified injury of head,iamkedl-RRR-87-CM COMPARISON: None. PROCEDURE COMMENTS: Routine noncontrast head [...] 10/30/2016 11:37 AM History: 61 years .Female. K67-Funus-XRF-92-PG. Compare: February 13, 2006 Procedure Note Javed Fu MD - 10/30/2016 XR CHEST PA AND LATERAL 10/30/2016 11:37 AM History: 61 years .Female. C93-Hzocd-HNA-34-WV. Compare: February 13, 2006 IMPRESSION: Tortuous thoracic aorta. Moderate degenerative changes thoracic spine. No radiographic evidence of acute cardiac or pulmonary diseaseprocess. Judy Shook Julián [facility] DIAGNOSTIC IMAGING ORDERAB LES Final Result * PULMONARY FUNCTION TEST (10/30/2016 10:41 AM EST) 10/30/2016 10:4 1 AM EST Impressions [facility] - 10/30/2016 10:41 AM EST Good patient effort and understanding. Acceptable results and reproducibility. NORMAL PFTs. Clinical Correlation is Required. This data was interpreted based upon the 2005 ATS/ERS Task Force Position Statement: Interpretative Strategies for Lung Function Tests. This section is an excerpt of the full report. [facility] Final Result [facility] [address] [place] [address] * MM MAMMO DIGITAL SCREENING W CAD BILAT (05/16/2016 3:48 PM EDT) Only the most recent of4 resultswithin the time period is included. Anatomical Region Laterality Modality Breast Bilateral Mammography 05/17/2016 12:3 5 PM EDT Impressions 05/17/2016 1:30 PM EDT : Negative (ZEE-Lyhcluym-6) ~ RECOMMENDATION: Routine screening mammogram in 1 [...] the most recent studies of 05-12-15. ~ [facility] Evangelista Arelis IMG MAMMOGRAPHY ORDERABLES Jill l [...] show Sinus Rhythm 78-125 average 94. PVC's 55194. No VT. PAC's 12. No SVT. Narrative 03/19/2015 11:59 AM EDT INDICATIONS: Chest Pain LENGTH OF TAPE 23 HRS 59 MINS MEDICATION: None listed SLOWEST RATE 76 FASTEST RATE 125 AVERAGE RATE 94 TOTAL PVC'S 27083 TOTAL PAC'S 12 VENTRICULAR TACHYCARDIA SUPRAVENTRICULAR TACHYCARDIA [...] no significant reversible defects. Javed Curtis MD [facility] CARDIAC ORDERABLES Final Result * ST STRESS TEST LEXISCAN (11/29/2014 12:01 PM EST) Anatomical Region Laterality Modality Cardiac Stress T esting 11/29/2014 11:3 0 AM EST Impressions 12/02/2014 12:45 PM EST Exercise ECG Report [place] Interpretive Statements Stress Test Lexiscan Reason for [...] esophageal dilation. Fluoroscopy time: 1.2 minutes FINDINGS: House Painter film unremarkable. Esophagus normal in appearance. Normal esophageal motility. No esophageal mass or stricture. No hiatal hernia. No gastroesophageal reflux was seen. Procedure Note Kenny Welch MD - 09/02/2013 Esophagram, 09/02/2013 HISTORY: Chest pain, status post recent endoscopy with esophagealdilation. Fluoroscopy time: 1.2 minutes FINDINGS: House Painter film unremarkable. Esophagus normal in appearance. Normalesophageal [...] AM EDT) 08/12/2013 7:30 AM EDT Impressions [facility] - 08/12/2013 7:47 AM EDT Normal stomach. Normal duodenum. Normal mucosa in the whole esophagus. (Dilation). Plan: Follow-up as needed This section is an excerpt of the full report, which can be found by clicking the hyperlink. Dennis Mak MD GI PROCEDURE ORDERABLES Fin al Result Performing Organization Address [facility] Co de Phone Number [facility] [address] [place] [address] * SBCPT-[facility] (08/12/2013 12:00 AM EDT) CPT Code(s) [facility] Comment: [id number], [id number] [employer] assumes no responsibility for the accuracy of CPT codes provided which are for informational purposes only. CPT codes are payor specific and CPT coding is the sole responsibility of the billing entity. 08/12/2013 08/12/2013 11: 40 PM EDT Narrative [facility] - 08/13/2013 4:26 PM EDT FASTING: UNKNOWN Resulting Agency Comment Performing Organization Information: Site ID: OW Name: [facility] Address: [address] [place] [address] [address] [place] [address] Director: Gerhard Hayes MD PhD us Dennis Mak MD [facility]-HEMAT[facility]Y ORDERABLES Final Result Performing Organization Address City/[facility]/ZIP Co de Phone Number [facility] [address], [place] * TISSUE PATHOLOGY-[facility] (08/12/2013 12:00 AM [...] in cassette A. Gross exam(s) performed at: [facility] [address] [address] Business Lawyer: GERHARD HAYES MD PHD Specimen A Diagnosis [facility] Comment: - Benign hyperplastic polyps. [id number] Specimen B Clinical Impression Polyp in the [...] [facility] Comment: - Tubular adenoma. [id number] 08/12/2013 08/12/2013 11: 40 PM EDT Narrative [facility] - 08/13/2013 4:26 PM EDT FASTING: UNKNOWN Resulting Agency Comment Performing Organization Information: Site ID: [id number] Name: [facility] Address: [address] [place] [address], [place] [address] Director: Neal Isabel MD Dennis Mak MD [facility]TO ORDERABLES Final Result [facility] [address] [facility] [place] [address], [facility] * GMED COLONOSCOPY (08/12/2013 12:00 AM EDT) 08/12/2013 Impressions [facility] - 08/12/2013 7:44 AM EDT Polyps (3 mm to 4 mm) in the transverse colon. (Polypectomy). Polyp (3 mm) in the sigmoid colon. (Polypectomy). Grade 1 internal hemorrhoids. Plan: Colonoscopy in 5 years. This section is an excerpt of the full report, which can be found by clicking the hyperlink. Dennis Mak MD GI PROCEDURE ORDERABLES Fin al Result Performing Organization Address [facility] Co de Phone Number [facility] [address] [place] [address] * DIFFERENTIAL (08/11/2013 9:50 AM EDT) Neut Percent 46.7 % SE LAB Lymph Percent 42.7 % [facility] Milam Percent 7.2 % [facility] Eos Percent 3.1 % [facility] Baso Percent 0.3 % [facility] Neut# 2.4 1.8 - 7.7 x10(3)/[facility] Lymph# 2.2 0.6 - 4.8 x10(3)/[facility] Milam# 0.4 0.0 - 1.3 x10(3)/[facility] Eos# 0.2 0.0 - 0.5 x10(3)/[facility] Baso# 0.0 0.0 - 0.2 x10(3)/[facility] Blood specimen (specimen) 08/11/2013 9:50 AM EDT 08/11/2013 8:52 PM EDT Moustapha Shaffer DPM HEMATOLOGY ORDERABLES Final R esult Performing Organization Address [facility] Co de Phone Number [facility] [address] [place] [address] * MM MOBILE MAMMO DIGITAL SCREEN W CAD TRAMAINE (07/16/2012 1:11 PM EDT) Anatomical Region Laterality Modality Breast Mammography 07/18/2012 10:5 3 AM EDT Impressions 07/18/2012 1:41 PM EDT : No radiographic evidence of malignancy (GKV-Tosmdxca-8) ~ RECOMMENDATION: Routine screening mammogram in 1 [...] ~ IMPRESSION: No radiographic evidence of malignancy (MXK-Ahbzzgjg-4) ~ RECOMMENDATION: Routine screening mammogram in 1 [...] disease about the left hip. There is oslv-ri-zvho articulation with cortical remodeling. There is collapse [...] degenerative disease about the lefthip. There is fjel-rh-mkwo articulation with cortical remodeling. There is collapse [...] views. IMPRESSION- No radiographic evidence of malignancy (WYH-Svtxibgc-1) RECOMMENDATION- Routine screening mammogram in 1 year. * The patient with a palpable abnormality, unexplained by breast imaging, should be managed on clinical basis by the attending physician. * Breast imaging has a false negative rate of 15%. * The patient was notified by mail of the results of this examination. Nuclear Reactor Engineer- RODRÍGUEZ GIBBS Reading Physician- ERNST WATSON MD Released Date Time- 07/06/09 1134 Procedure Note Ernst Watson - 01/19/2010 Procedure-MM DIGITAL DIAG UNILAT MM DIGITAL DIAG UNILAT CC and MLO view(s) were taken of the left breast. No abnormality is seen on additional views. IMPRESSION- No radiographic evidence of malignancy (AWI-Wdlyfnzf-2) RECOMMENDATION- Routine screening mammogram in 1 year. * The patient with a palpable abnormality, unexplained by breast imaging, should be managed on clinical basis by the attending physician. * Breast imaging has a false negative rate of 15%. * The patient was notified by mail of the results of this examination. Nuclear Reactor Engineer- RODRÍGUEZ Garcia Physician- ERNST WATSON MD Released Date Time- 07/06/09 1134 [facility] [facility] al Result * MM DIG SCR [...] dated 03-23-08 IMPRESSION- Incomplete-need additional imaging evaluation ([id number]-[id number]-2) RECOMMENDATION- Special view mammogram of the left [...] dated 03-23-08 IMPRESSION- Incomplete-need additional imaging evaluation (YCE-Kqqyahcs-5) RECOMMENDATION- Special view mammogram of the left [...] Released Date Time- 07/01/09 1140 Benita Infante [facility] RAD HISTORICAL Fin al Result * MR [...] due to spur projecting from the facet. Nuclear Reactor Engineer- RADHA Garcia Physician- ILANA SHI MD Released [...] due to spur projecting from the facet. Nuclear Reactor Engineer- RADHA Garcia Physician- ILANA SHI MD Released Date Time- 04/19/09 1928 Michaela Palacio MD IMG [facility] HISTORICAL Fi nal Result * EK EKG REG (11/27/2008 2:26 PM EST) Anatomical Region Laterality Modality Other 11/27/2008 2:26 PM EST Narrative 11/28/2008 11:16 AM EST Sinus rhythm with PVC(s) Anterior T wave changes are nonspecific Borderline ECG No previous records available at this time Clinical correlation is recommended. Nuclear Reactor Engineer- FRANKLIN GARCIA M.D. Reading Physician- FRANKLIN GARCIA M.D. Released Date Time- 11/28/08 1116 Procedure Note Franklin Garcia - 01/19/2010 Sinus rhythm with PVC(s) Anterior T wave changes are nonspecific Borderline ECG No previous records available at this time Clinical correlation is recommended. Nuclear Reactor Engineer- FRANKLIN GARCIA M.D. Reading Physician- FRANKLIN GARCIA M.D. Released Date Time- 11/28/08 1116 Eliseo Martel MD [facility] CARD HISTORICAL Final Result * XR FOOT & TOES (06/29/2008 3:01 PM EDT) Anatomical Region Laterality Modality Other 06/29/2008 3:01 PM EDT Narrative 06/29/2008 7:17 PM EDT Right foot and toes, 06/29/2008- Indication- Pain. Three views right foot and toes show midfoot degenerative change, hallux valgus, bunion formation, and hallux MTP degenerative change. No acute fracture. Nuclear Reactor Engineer- ERICA Garcia Physician- CONNOR PAYTON MD Released Date Time- 06/29/082025 Procedure Note Connor Payton - 01/19/2010 Right foot and toes, 06/29/2008- Indication- Pain. Three views right foot and toes show midfoot degenerative change, hallux valgus, bunion formation, and hallux MTP degenerative change. No acute fracture. Nuclear Reactor Engineer- ERICA Jj- CONNOR PAYTON MD Released Date Time- 06/29/082025 [facility] [employer] HISTORICAL Fin al Result * XR WRIST (11/05/2006 10:00 AM EST) Anatomical Region Laterality Modality Other 11/05/2006 10:0 0 AM EST Narrative 11/05/2006 11:05 AM EST FOUR VIEWS OF RIGHT WRIST - 11/05/06 History- Pain in the scaphoid region. No injury. There is no evidence of fracture or dislocation. No significant arthritic process is seen. Nuclear Reactor Engineer- RACHID Garcia Radiologist- CHANA JASSO MD Released Date Time- 11/05/06 1309 Procedure Note Chana Jasso - 01/18/2010 FOUR VIEWS OF RIGHT WRIST - 11/05/06 History- Pain in the scaphoid region. No injury. There is no evidence of fracture or dislocation. No significant arthritic process is seen. Nuclear Reactor Engineer- RACHID Garcia Radiologist- CHANA JASSO MD Released Date Time- 11/05/06 1309 Benita Infante [facility] [employer] [facility] HISTORICAL Fin al Result * [place] STOMACH/ESOPHAGUS BRUSH POLISHER (10/18/2006 8:00 AM EST) Anatomical Region Laterality Modality Other 10/18/2006 8:00 AM EST Narrative 10/18/2006 9:36 AM EST [facility] Upper GI series on 10/18/2006. 1. [...] other abnormality in the upper gastroenteric tract. Nuclear Reactor Engineer- LYDIA FREGOSO Reading Radiologist- KAREN REYES MD Released Date Time- 10/18/06 1502 Procedure Note Karen Reyes - 01/18/2010 [facility] Upper GI series on 10/18/2006. 1. [...] other abnormality in the upper gastroenteric tract. Nuclear Reactor EngineerDenzel Garcia Radiologist- KAREN REYES MD Released Date Time- 10/18/06 1502 R Evangelista Infante [facility] RAD HISTORICAL Fin al Result * MM [...] compared with prior studies. IMPRESSION- Benign finding (UNP-Nmjkcwnt-3) RECOMMENDATION- Routine screening mammogram in 1 year. * The patient with a palpable abnormality, unexplained by breast imaging, should be managed on clinical basis by the attending physician. * Breast imaging has a false negative rate of 15%. * The patient was notified by mail of the results of this examination. The mammogram was reviewed by a Radiologist and CAD. Nuclear Reactor Engineer- RALPH Garcia Radiologist- JONATHAN BANSAL MD Released [...] compared with prior studies. IMPRESSION- Benign finding (SVE-Cptplyre-4) RECOMMENDATION- Routine screening mammogram in 1 year. * The patient with a palpable abnormality, unexplained by breast imaging, should be managed on clinical basis by the attending physician. * Breast imaging has a false negative rate of 15%. * The patient was notified by mail of the results of this examination. The mammogram was reviewed by a Radiologist and CAD. Nuclear Reactor Engineer- RALPH Garcia Radiologist- JONATHAN BANSAL MD Released Date Time- 09/03/06 1422 [facility] Evangelista Mieet [facility] RAD HISTORICAL Fin al Result * XR [...] dorsal spine. Impression- No acute cardiopulmonary disease. Nuclear Reactor Engineer- RADHA SWANSON Reading Radiologist- MAURICE NOONAN MD [...] dorsal spine. Impression- No acute cardiopulmonary disease. Nuclear Reactor Engineer- RADHA SWANSON Reading Radiologist- MAURICE NOONAN MD Released Date Time- 02/13/[address] [facility] HISTORICAL Fi nal Result Visit Diagnoses [...] specified disorders of liver 06/02/2020 Care Teams Communications Representative Relationship Specialty Start Date End Date Arelis Benita Evangelista [address] [place] [address] PCP - General 07/10/10 Dennis Mak MD [address] [place] [address] Internal Medicine-Gastroenterology 07/14/13 Michaela Palacio MD [address] [place] [id number] Internal Medicine-Rheumatology 02/20/23
--- OUTSIDE RECORDS SUMMARY | 2025-07-06 13:49 | XMS_ITS | Encounter Summary ---
Author Organization [place] [address] Care Team Providers Care Frame And Scrap Crusher Name Role Phone Benita Infante Primary Care Provider [phone] Dennis Mak MD Unavailable [phone] Michaela Palacio MD Unavailable [phone] Encounter Details Date Type Department Care Team (Late st Contact Info) Description 08/12/2013 Orders Only SEP Gastro [facility] [address], 3RD [place] [address] Dennis Mak MD [address] [place] [address] Social History Tobacco Use Types Packs/Day Years [...] Visit [facility] [address] [place] [address] Michaela Palacio MD [address] [place] [address] documented as of this encounter Procedures Procedure Name Priority Date/Time Associated Diagnosis Comments GMED EGD Routine 08/12/2013 7:30 AM EDT documented in this encounter Results * GMED EGD (08/12/2013 7:30 AM EDT) 08/12/2013 7:30 AM EDT Impressions [facility] - 08/12/2013 7:47 AM EDT Normal stomach. Normal duodenum. Normal mucosa in the whole esophagus. (Dilation). Plan: Follow-up as needed This section is an excerpt of the full report, which can be found by clicking the hyperlink. us Dennis Mak MD GI PROCEDURE ORDERABLES Fin al Result Performing Organization Address City/State/[facility] Co de Phone Number [facility] [address] [place] [address] documented in this encounter Visit Diagnoses Not on filedocumented in this encounter Care Teams Frame And Scrap Crusher Relationship Specialty Start Date End Date Benita Infante [address] [facility] [address] PCP - General 07/10/10 Dennis Mak MD [address] [facility] [place] [address] Internal Medicine-Gastroenterology 07/14/13 Michaela Palacio MD [address] [place] [address] Internal Medicine-Rheumatology 02/20/23 documented as of this encounter
--- OUTSIDE RECORDS SUMMARY | 2025-07-06 13:49 | XMS_ITS | Encounter Summary ---
Author Organization [place] [address] Care Team Providers Care Regional Rehabilitation Director Name Role Phone Benita Infante Primary Care Provider [phone] Dennis Mak MD Unavailable [phone] Michaela Palacio MD Unavailable [phone] Encounter Details Date Type Department Care Team (Late st Contact Info) Description 08/12/2013 Orders Only SEP Gastro [facility] [address], 3RD [place] [address] Dennis Mak MD [address] [place] [address] Social History Tobacco Use Types Packs/Day Years [...] Visit [facility] [address] [place] [address] Michaela Palacio MD [address] [place] [address] documented as of this encounter Procedures Procedure Name Priority Date/Time Associated Diagnosis Comments GMED COLONOSCOPY Routine 08/12/2013 12:0 0 AM EDT documented in this encounter Results * GMED COLONOSCOPY (08/12/2013 12:00 AM EDT) 08/12/2013 Impressions [facility] - 08/12/2013 7:44 AM EDT [...] ORDERABLES Fin al Result Performing Organization Address City/State/[facility] Co de Phone Number [facility] [address] [place] [address] documented in this encounter Visit Diagnoses Not on filedocumented in this encounter Care Teams Regional Rehabilitation Director Relationship Specialty Start Date End Date Benita Infante [address] [place] [address] [address] [place] [address] PCP - General 07/10/10 Dennis Mak MD [address] [place] [address] [address] [place] [address] Internal Medicine-Gastroenterology 07/14/13 Michaela Palacio MD [address] [place] [address] Internal Medicine-Rheumatology 02/20/23 documented as of this encounter
--- OUTSIDE RECORDS SUMMARY | 2025-07-06 13:49 | XMS_ITS | Referral Summary ---
Author Organization [facility] Address [address] [place], [place] [address] [address] Care Team Providers Care Cad Operator Name Role Phone Unavailable Primary Care Provider [...]
--- OUTSIDE RECORDS SUMMARY | 2025-07-06 13:49 | XMS_ITS | Clinical Summary ---
Author Organization [facility] Address [facility] [place] [address] Care Team Providers Care White Hat Hacker Name Role Phone Unavailable Primary Care Provider [...]
--- OUTSIDE RECORDS SUMMARY | 2025-07-06 13:49 | XMS_ITS | Encounter Summary ---
Author Organization [place] [address] Care Team Providers Care Photographer Aerial Name Role Phone Benita Infante Primary Care Provider [phone] Dennis Mak MD Unavailable [phone] Michaela Palacio MD Unavailable [phone] Encounter Details Date Type Department Care Team (Late st Contact Info) Description 08/14/2021 Lab Re[facility] [place] [address] Dennis Mak MD [address] [place] [address] Personal history of other malignant [...] Description 08/05/2025 2:00 PM EDT [facility] [address] [place] [address] Michaela Palacio MD [address] [place] [address] documented as of this encounter Procedures Procedure Name Priority Date/Time Associated Diagnosis Comments PATHOLOGY TISSUE REQUEST Routine 08/14/2021 11:00 AM EDT Personal history of other malignant neoplasm of large intestine Polyp of colon documented in this encounter Results * PATHOLOGY TISSUE REQUEST (08/14/2021 11:00 AM EDT) CASE REPORT Surgical Pathology Case: [id number] Authorizing Provider: Dennis Mak MD Collected: 08/14/2021 1100 Ordering Location: [facility] Received: 08/14/2021 1544 Pathologist: Manuel Brito MD Specimen: Large Intestine, Left/Descending Colon 08/15/2021 11:55 AM EDT [facility] FINAL DIAGNOSIS Descending Colon Polyp x 2: - Sessile Serrated Polyps, Negative For High-Grade Dysplasia. 08/15/2021 11:55 AM EDT [facility] at 1155 EDT GROSS DESCRIPTION [...] 08/14/2021 3:52 PM 08/15/2021 11:55 AM EDT [facility] MICROSCOPIC DESCRIPTION Microscopic examination is performed and the findings corroborate the diagnosis. 08/15/2021 11:55 AM EDT [facility] EMBEDDED IMAGES 08/15/2021 11:55 AM EDT [facility] Tissue DESCENDING COLON STRUCTURE / Unknown 08/14/2021 11:00 AM EDT 08/14/2021 3:44 PM EDT Dennis Mak MD PATHOLOGY ORDERABLES Final Result [facility] [address] [place] [address] [id number] documented in this encounter Visit Diagnoses Diagnosis Personal history of other malignant neoplasm of large intestine Polyp of colon Benign neoplasm of colon documented in this encounter Care Teams Photographer Aerial Relationship Specialty Start Date End Date Benita Infante [address] [place] [address] PCP - General 07/10/10 Dennis Mak MD [address] [place] [address] Internal Medicine-Gastroenterology 07/14/13 Michaela Palacio MD [address] [place] [address] Internal Medicine-Rheumatology 02/20/23 documented as of this encounter
--- NOTE | 2025-07-06 14:00 | US_ITS ---
FINAL REPORT CLINICAL HISTORY: DECREASED PEDAL PULSES,HTN,CLAUDICATION FINDINGS: Complete ankle-brachial indices was obtained bilaterally. The right PHAN is 1. 4. The left PHAN is 1.4. IMPRESSION: Values for ABIs may indicate the arteries being noncompressible which limits exam. Reviewed, Interpreted and Dictated by Maggie Conrad MD Transcribed by Eleonora Wheeler Authenticated and [facility]
--- NOTE | 2025-07-06 14:30 | MR_ITS ---
FINAL REPORT TECHNIQUE: Multi planar MR imaging was performed through the left foot. CLINICAL HISTORY: eval bunion,1-3 for bone cysts,arthritic changes DORSAL FOOT PAIN X YEARS NO INJURY OR TRAUMA COMPARISON: None FINDINGS: There is severe hallux valgus deformity at the first MTP joint. There is also lateral subluxation at the 2nd and 3rd MTP joints. No acute bone marrow edema. Remaining bone marrow signal intensity is preserved without fracture. There is multijoint degenerative disease most pronounced at the midfoot and first MTP joint. The Lisfranc joint is aligned and the ligament appears intact. There is no acute abnormality of the flexor or extensor tendons. The Achilles tendon is intact. The plantar fascia is normal. Remaining soft tissues reveal mild edema at the ankle, worse posteriorly but nonspecific. No mass or fluid collection identified. 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 Reviewed, Interpreted and Dictated by Maggie Conrad MD Transcribed by Victorina Key Authenticated and [facility]
== END 2025-07-06 23:59 | disposition home or self-care (01) ==
LOC: RT 13:46
PROVIDERS: PCP Family Medicine; Visit Provider Podiatrist
DX: M19.072 Primary osteoarthritis, left ankle and foot (principal); S93.145A Subluxation of metatarsophalangeal joint of left lesser toe(s), initial encounter; Q66.222 Congenital metatarsus adductus, left foot; M77.52 Other enthesopathy of left foot and ankle; R09.89 Other specified symptoms and signs involving the circulatory and respiratory systems; Z98.890 Other specified postprocedural states
CPT/HCPCS: 73718; 93923

== ENCOUNTER 2025-07-27 14:01 | Outpatient (CLI) | payer MEDICARE, MEDICAID, SELFPAY ==
--- OUTSIDE RECORDS SUMMARY | 2025-04-09 08:30 | XMS_ITS ---
Author Organization [facility] Address [address] [phone] Care Team Providers Care Cloth Worker Name Role Phone Benita Infante Primary Care Provider [phone] FrantzJudit candelaria Unavailable [phone] Results Component Value Reference Range Notes CBC [...] Interpretation:1355 Performing Lab: Notes/Report: Test performed by [facility] [address] [place], [place] [address] , [address], [place] [address] Bran Underwood MD, Horn Player CLIA: [id number] Vitamin B12 9620 310-3790 pg/mL P-Comprehensive Metabolic Pa lei (CMP) Reviewed date:04/23/2025 12:11:04 PM Interpretation:Normal Performing Lab: Notes/Report: Test performed by [facility] [address] [place] [address] [address], [address], [place] [address] Bran Underwood MD, Horn Player CLIA: [id number] Sodium 141 135-145 mmol/L Potassium 3.7 3.5-5.3 [...] Interpretation:Normal Performing Lab: Notes/Report: Test performed by [facility], [address] , [address], [place] [address] Bran Underwood MD, Horn Player CLIA: [id number] Cholesterol 167 <200 mg/dL Triglycerides 92 <150 [...] Interpretation:Normal Performing Lab: Notes/Report: Test performed by [facility] [address] [place], [place] [address] , [place] [address] Bran Underwood MD, Horn Player CLIA: [id number] TSH reflex to FT4 0.57 0.43-5.25 mU/L P-Vitamin D 25-Hydroxy Reviewed date:04/23/2025 12:11:04 PM Interpretation:Normal Performing Lab: Notes/Report: Test performed by [facility] [address] [place], [place] [address] , [facility], [place] [address] Bran Underwood MD, Horn Player CLIA: [id number] Vitamin D 25-Hydroxy 43.4 30.0-100.0 ng/mL Interpretation of Vitamin D 25 OH: < 20 ng/mL - Deficiency 20 - 29 ng/mL - Insufficiency 30 - 100 ng/mL - Sufficiency > 100 ng/mL - Super-therapeutic- toxicity may occur above this level. Clinical correlation required. REASON FOR VISIT fasting labs only Medications Medication SIG (Take, Route, Frequency, Duration) Notes Start Date End Date Status Wvqacjdipx-DOFX-Xaudmgh e 50-325-40 MG 1-2 tab(s) orally every [...] Active Encounters Encounter Location Date Provider [facility] [address] [phone] 04/09/2025 Judit Chong Essential (primary) hypertension I10 [...] fatigue (ICD-10 - R53.83) Plan Of Treatment Next Appt Details Provider Name:Judit doty, 08/12/2025 04:30:00 PM, [address], [address], [place], [place], [phone], Progress Notes * CAITLIN NAQVIOB:1955 ( 70 yo F)Acc No.[id number]:04/09/2025 Patient: PATRICIA MAYA Provider: PATIENCE Joiner :1955 A ge:70 Y S ex:Female Date:04/09/2025 Address:[address] [place], [place] [phone] Pcp:Benita Infante Subjective: * Chief Complaints: * [...] times a day as needed , Taking Voepajvyjv-LLCZ-Yomhpjpu 50-325-40 MG Capsule 1-2 tab(s) orally every [...] T riglycerides 92 <150 - mg/dL * RoxanneKaroline 04/23/2025 12: 10:55 PM EDT > See phone encounter 3.?Vitamin B12 deficiency?LAB: P-Vitamin B12 (Collection Date & Time - 04/09/2025 12:11 PM)?1355* Value Reference Range V itamin B12 1355 H 232-1245 - pg/mL * RoxanneKaroline 04/23/2025 12: 10:55 PM EDT > See phone encounter 4.?Screening for thyroid disorder?LAB: P-TSH reflex to FT4 (Collection Date & Time - 04/09/2025 12:11 PM)? Normal* Value Reference Range T SH reflex to FT4 0.57 0.43-5.25 - mU/L * Roxanne Karoline 04/23/2025 12: 10:55 PM EDT > See phone encounter 5.?Other fatigue?LAB: P-Vitamin D 25-Hydroxy (Collection Date & Time - 04/09/2025 12:11 PM)? Normal* Value Reference Range V itamin D 25-Hydroxy 43.4 30.0-100.0 - ng/mL * Roxanne Karoline 04/23/2025 12: 10:55 PM EDT > See [...] p latlet 376 100 - 400 * RoxanneKaroline 04/23/2025 12: 10:55 PM EDT > See phone encounter * Procedure Codes: 8 5025 CBC WITH AUTO DIFF, 28679 VENIPUNCT, ROUTINE* * Images: Billing Information: * Visit Code: * Procedure Codes: 51238 CBC WITH AUTO DIFF. 88512 VENIPUNCT, ROUTINE*. * Electronic signature of PATIENCE Pederson on 07/27/2025 at 02:06 PM EDT Sign off status: Pending * Provider: PATIENCE Joiner Date: 0 04/09/2025 Generated for Destini yang/Irene/eTransmitting on: 0 07/27/2025 02:06 PM EDT
--- OUTSIDE RECORDS SUMMARY | 2025-04-20 10:45 | XMS_ITS ---
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 Name Role Phone Benita Infante Primary Care [...] 1 cap(s) orally once a day Active Fftstcexpi-DWVL-Ouzit ine 50-325-40 MG 1-2 tab(s) orally every [...] 04/20/2025 Encounters Encounter Location Date Provider Diagnosis [facility] [facility] [facility] [address] [place], [place] [id number] 04/20/2025 Benita Infante Blurred vision, left eye H53.8 ; Ankle pain, left M25.572 and BMI 31.0-31.9,adult Z68.31 Assessments Encounter Date Diagnosis (ICD Code) Assessment Notes Treatment Notes Treatment Clinical Notes Section Notes 04/20/2025 Blurred vision, left eye (ICD-10 - H53.8) Recommend she seek formal eye exam with her pediatric physiatrist whom she has not seen for a few years. 04/20/2025 Ankle pain, left (ICD-10 - M25.572) She follows regularly with a fashion designer in [facility] and will contact his office for appointment to evaluate her ongoing ankle pain. 04/20/2025 BMI 31.0-31.9,adul t (ICD-10 - Z68.31) Plan Of Treatment Treatment Notes Assessment Notes Blurred vision, left eye Recommend she [place] formal eye exam with her pediatric physiatrist whom she has not seen for a few years. Ankle pain, left She follows regularl y with a fashion designer in [facility] and will contact his office for appointment to evaluate her ongoing ankle pain. Next Appt Details Follow Up: prn, Reason: Provider Name:Judit doty, 08/12/2025 04:30:00 PM, [address] [facility] [address], [place], [place], [id number], Progress Notes * CAITLIN NAQVIOB:1955 ( 70 yo F)Acc No.[id number]:04/20/2025 Progress Notes Patient: PATRICIA MAYA Provider: Benita Infante M.D. :1955 A ge:70 Y S ex:Female Date:04/20/2025 Address:[address] [place], [place] [id number] Subjective: * Chief Complaints: * 1 . [...] replacement 01/23/13, right hip replacement 05/19/19, [facility]: Rectal cancer removed 06/02/2020, colonoscopy 08/14/2021. * [...] times a day as needed , Taking Rkmjzdyhbj-RAPT-Kdrtdvlw 50-325-40 MG Capsule 1-2 tab(s) orally every [...] Temp: 98.4, BP: 136/80, HR: 77, Nurse: [facility], Ht: 63, BMI:31.78. * Examination: G eneral [...] pain, left - M25.572 3 . B NH 31.0-31.9,adult - Z68.31 Plan: * Treatment: 2. A nkle pain, left Notes: She follows regularly with a fashion designer in [facility] and will contact his office for appointment to evaluate her ongoing ankle pain. * Procedure Codes: G 2211 Complex e/m visit add on, 1036F TOBACCO NON-USER, G8783 BP SCR PRFRM RCMDD DEFIND SCR INTVL, G8752 MOST RECENT SYSTOLIC BP < 140MM HG, G8754 MOST RECENT DIASTOLIC BP < 90MM HG * Follow Up: p rn * Images: Billing Information: * Visit Code: 35838 Office Visit, Est Pt., Level 3. * Procedure Codes: G2211 Complex e/m visit add on. 1036F TOBACCO NON-USER. G8783 BP SCR PRFRM RCMDD DEFIND SCR INTVL. G8752 MOST RECENT SYSTOLIC BP < 140MM HG. G8754 MOST RECENT DIASTOLIC BP < 90MM HG. * Electronic signature of Benita Infante MD on 07/27/2025 at 02:05 PM EDT Sign off status: Pending * Provider: Benita Infante M.D. Date: 04/20/2025 Generated for Destini yang/Irene/Cherryitting on: 07/27/2025 02:05 PM EDT History and Physical Notes * HPI (History [...]
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
--- OUTSIDE RECORDS SUMMARY | 2025-06-14 09:35 | XMS_ITS ---
Author Organization [facility] Address [facility] [facility] [address] [place] [id number] Care Team Providers Care Furniture Upholsterer Name Role Phone Benita Infante Primary Care Provider FrantzJudit candelaria Unavailable [phone] Results Component Value Reference Range Notes P-Iron Reviewed date:06/16/2025 08:13:06 AM Interpretation:Normal Performing Lab: Notes/Report: Test performed by [facility] [employer] [address] [place] [address] , [address], [place] [address] Bran Underwood MD, Plant Breeder Scientist CLIA: [id number] Iron 94 37-145 ug/dL P-Potassium Reviewed date:06/16/2025 08:13:20 AM Interpretation:Normal Performing Lab: Notes/Report: Test performed by [employer] [facility], [employer] [address] [place] [address] , [address], [place] [address] Bran Underwood MD, Plant Breeder Scientist CLIA: [id number] Potassium 4.0 3.5-5.3 mmol/L P-Magnesium Reviewed date:06/16/2025 08:13:13 AM Interpretation:Normal Performing Lab: Notes/Report: Test performed by [employer] [address] [place] [address] , [address], [place] [address] Bran Underwood MD, Plant Breeder Scientist CLIA: [id number] Magnesium 2.0 1.6-2.4 mg/dL REASON FOR VISIT BLOOD WORK Encounters Encounter Location Date Provider Diagnosis [facility] [address] [facility] [address] [place] [id number] 06/14/2025 Judit Arlette Hypokalemia E87.6 an d Fatigue R53.83 Assessments Encounter Date Diagnosis (ICD Code) Assessment Notes Treatment Notes Treatment Clinical Notes Section Notes 06/14/2025 Hypokalemia (ICD-10 - E87.6) 06/14/2025 Fatigue (ICD-10 - R53.83) Plan Of Treatment Next Appt Details Provider Name:Judit Raven Frantzrodrigue doty, 08/12/2025 04:30:00 PM, [address], [address], [place], [place], [id number], Progress Notes * CAITLIN NAQVIOB:1955 ( 70 yo F)Acc No.[id number]:06/14/2025 Patient: PATRICIA MAYA Provider: PATIENCE Joiner :1955 A ge:70 Y S ex:Female Date:06/14/2025 Address:[address] [place], [place] [id number] Pcp:Benita Infante Subjective: * Chief Complaints: * [...] Joiner Date: 0 06/14/2025 Generated for Destini yang/Irene/Jocelinesmjames on: 0 07/27/2025 02:05 PM EDT
--- OUTSIDE RECORDS SUMMARY | 2025-07-14 05:15 | XMS_ITS ---
Author Organization [facility] Address [address] [facility] [address] [id number] Care Team Providers Care Auto Service Station Attendant Name Role Phone Benita Infante Primary Care Provider [phone] Casey Gonzalezian Unavailable [phone] Allergies Allergen (clinical drug ingredient) Drug/Non Drug [...] 1 TABLET EVERY DAY; Duration: 90 Active Wloynmgozf-JWZJ-Rzulhqve 50-325-40 MG 1-2 tab(s) orally every 4 [...] 07/14/2025 Encounters Encounter Location Date Provider Diagnosis [facility] [address] [facility] [address] [facility] [address] [place], [place] [id number] 07/14/2025 Neal Gonzalez Essential hypertensi on I10 [...] Appt Details Follow Up: 4 Weeks, Reason: Provider Name:Judit Raven Frantzrodrigue doty, 08/12/2025 04:30:00 PM, [address] [facility], [address], [place], [place], [id number], Progress Notes * CAITLIN NAQVIOB:1955 ( 70 yo F)Acc No.[id number]:07/14/2025 Progress Notes Patient: PATRICIA MAYA Provider: Shasta Gonzalez M.D. :1955 A ge:70 Y S ex:Female Date:07/14/2025 Address:[address] [place], [place] [phone] Pcp:Benita Infante Subjective: * Chief Complaints: * [...] replacement 01/23/13, right hip replacement 05/19/19, [facility]: Rectal cancer removed 06/02/2020, colonoscopy 08/14/2021. * [...] times a day as needed , Taking Hssrzejvnd-DCJB-Xouhzsgj 50-325-40 MG Capsule 1-2 tab(s) orally every [...] * Images: Billing Information: * Visit Code: 55945 Office Visit, Est Pt., Level 3. * Procedure Codes: G2211 Complex e/m visit add on. * Electronic signature of Vidhi Gonzalez MD on 07/27/2025 at 02:05 PM EDT Sign off status: Pending * Provider: Shasta Gonzalez M.D. Date: 07/14/2025 Generated for Destini yang/Irene/Tigist on: 07/27/2025 02:05 PM EDT History and [...]
--- OUTSIDE RECORDS SUMMARY | 2025-07-27 14:05 | XMS_ITS | Clinical Summary ---
Author Organization [facility] Address [address] [place], [place] [address] Care Team Providers Care Pole Framer Name Role Phone Nonstaff, Referring MD Primary Care Provider [phone] Dwain Choi MD Unavailable [phone] Allergies Active Allergy Reactions Criticality Noted [...] Fall Risk Assessment 01/24/2020 Osteoporosis Screening 01/24/2020 Advance Care Planning 11/11/2024 Depression Screening 11/11/2024 COVID-19 Vaccine ( season) 2025 Influenza Vaccination (#1) 2025 RSV Vaccines (1 - 1-dose 75+ series) 2030 Medical Devices Implanted Type Area Polytechnic Teacher Device Identifier Shelf Expiration Date Model / Serial / Lot Scr Canc Acetab 6.5x40mm Implanted:Qty: 1 on 2013 by Dwain Choi MD at [facility] Left: Hip * J \T\ J DEPUY 12/11/2022 [id number] / / [id number] Head Fem Cocr 10/24 28mm+5 Implanted:Qty: 1 on 2013 by Dwain Choi MD at [facility] Left: Hip * J \T\ J DEPUY 06/10/2016 1365-12-000 / / [id number] Stem Fem Std Collar Corail 11 Implanted:Qty: 1 on 2013 by Dwain Choi MD at [facility] Left: Hip * J \T\ J DEPUY [id number] / / [id number] Eliminator [place] H Pos Stop Implanted:Qty: 1 on 2013 by Dwain Choi MD at [facility] Left: Hip * J \T\ J DEPUY 11/10/2022 [id number] / / [id number] Cup Acetab Sector 50mm Implanted:Qty: 1 on 2013 by Dwain Choi MD at [facility] Left: Hip * J \T\ J DEPUY 12/11/2022 1217-22-050 / / [id number] Carbon Altrx Polyethylene Acetabular Liner Neutral 28mm Id X 50mm Od Implanted:Qty: 1 on 2013 by Dwain Choi MD at [facility] Left: Hip * USE JJ DEPU 05/10/2016 1221-28-050 / / [id number] Hip Total Con Tier 2 Depuy Implanted:Qty: 1 on 2013 by wDain Choi MD at [facility] Left: Hip * J \T\ J DEPUY HIPS TIER 2 / / Insurance AETNA AETNA Advance Directives For more information, please contact: [phone] * Full Code (Latest Code Status on File) Date Activated Date Inactivated Comments 2013 3:09 PM 01/24/2013 10:13 PM Care Teams Pole Framer Relationship Specialty [place] [address] [place] [address] PCP - General Family Medicine 01/08/13 Dwain Choi MD [address] [place], [place] [address] Orthopedic Surgery 11/18/22
--- OUTSIDE RECORDS SUMMARY | 2025-07-27 14:05 | XMS_ITS | Encounter Summary ---
Author Organization [facility] [address] Care Team Providers Care Inspector Missile Name Role Phone Benita Infante Primary Care Provider [phone] Dennis Mak MD Unavailable [phone] Michaela Palacio MD Unavailable [phone] Encounter Details Date Type Department Care Team (Late st Contact Info) Description 04/15/2020 Orders Only [facility] G[facility] [address] [facility] [address] [place] [address] Dennis Mak MD [address] [place] [address] Social History Tobacco Use Types Packs/Day Years [...] Assessment Author No 05/20/2019 10:02 AM Macie gA RN * Does this person have difficulty [...] Visit [facility] [address] [place] [address] Michaela Palacio MD [address] [place] [address] 01/21/2026 10:00 AM EDT Office Visit [facility] Dermatology [facility] [address] [facility] [address] [place] [address] Liborio Pardo MD [address] [place] [address] documented as of this encounter Procedures Procedure Name Priority Date/Time Associated Diagnosis Comments GMED EGD-COLONOSCOPY Routine 04/15/2020 10:20 AM EDT documented in this encounter Results * GMED EGD-COLONOSCOPY (04/15/2020 10:20 AM EDT) 04/15/2020 10:2 0 AM EDT Impressions [facility] - 04/15/2020 11:24 AM EDT Plan: CT scan chest/abdomen/pelvis with contrast Colonoscopy in 1 year. This section is an excerpt of the full report. us Dennis Mak MD GI PROCEDURE ORDERABLES Fin al Result [facility] [address] [place], [place] [id number] documented in this encounter Visit Diagnoses Not on filedocumented in this encounter Care Teams Inspector Missile Relationship Specialty Start Date End Date Benita Infante [address] [place] [address] PCP - General 07/10/10 Dennis Mak MD [address] [facility] [address] [place] [address] Internal Medicine-Gastroenterology 07/14/13 [place] [address] [place] [id number] Internal Medicine-Rheumatology 02/20/23 documented as of this encounter
--- OUTSIDE RECORDS SUMMARY | 2025-07-27 14:05 | XMS_ITS | Encounter Summary ---
Author Organization [facility] [place] [address] Care Team Providers Care Residence Life Director Name Role Phone Benita Infante Primary Care Provider [phone] Dennis Mak MD Unavailable [phone] Michaela Palacio MD Unavailable [phone] Encounter Details Date Type Department Care Team (Late st Contact Info) Description 04/15/2020 Lab [facility]quisition [facility] [place] [address] Dennis Mak MD [address] [place] [address] Iron deficiency anemia, unspecified; Diaphragmatic [...] Visit [facility] [address] [place] [address] Michaela Palacio MD [address] [place] [address] 01/21/2026 10:00 AM EDT Office Visit [facility] D[facility]atology [facility] [address] [facility] [address] [place] [address] Liborio Pardo MD [address] [facility] [place] [address] documented as of this encounter Procedures Procedure Name Priority Date/Time Associated Diagnosis Comments PATHOLOGY TISSUE REQUEST Routine 04/15/2020 10:20 AM EDT Iron deficiency anemia, unspecified Diaphragmatic hernia without obstruction or gangrene Diverticulosis of large intestine without perforation or abscess without bleeding Polyp of colon documented in this encounter Results * PATHOLOGY TISSUE REQUEST (04/15/2020 10:20 AM EDT) CASE REPORT Surgical Pathology Case: [id number] Authorizing Provider: Dennis Mak MD Collected: 04/15/2020 1020 Ordering Location: [facility] Received: 04/15/2020 1547 Pathologist: Dontae Scott MD Specimens: A) - Small Intestine, Duodenum B) - Large Intestine, Left/Descending Colon C) - Large Intestine, Rectum D) - Large Intestine, Rectum 04/19/2020 8:33 AM EDT [facility] CLINICAL HISTORY Iron deficiency anemia. A 3 cm mass in the rectosigmoid junction and a 1 cm polyp in the rectum. 04/19/2020 8:33 AM EDT [facility] FINAL DIAGNOSIS A) Duodenum, distal, biopsy: [...] with endoscopy findings. 04/19/2020 8:33 AM EDT [facility] at 0833 EDT COMMENT Parts C and D were reviewed by additional departmental pathologist with diagnostic agreement.EK Dr. Dennis Mak was notified of this result via [employer] text message on 04/19/2020 at 8:32 am. 04/19/2020 8:33 AM EDT [facility] GROSS DESCRIPTION Part A) Received in [...] one cassette. /ZN 04/19/2020 8:33 AM EDT [facility] MICROSCOPIC DESCRIPTION Microscopic examination is performed and the findings corroborate the diagnosis. 04/19/2020 8:33 AM EDT [facility] FLOW CYTOMETRY SUMMARY 04/19/2020 8:33 AM EDT [facility] SPECIAL STAINS 04/19/2020 8:33 AM EDT [facility] EMBEDDED IMAGES 04/19/2020 8:33 AM EDT [facility] Tissue DUODENAL STRUCTURE / Unknown 04/15/2020 10:20 AM EDT 04/15/2020 3:42 PM EDT Tissue specimen (specimen) DESCENDING COLON STRUCTURE / Unknown 04/15/2020 10:20 AM EDT 04/15/2020 3:42 PM EDT Tissue specimen (specimen) RECTUM STRUCTURE / Unknown 04/15/2020 10:20 AM EDT 04/15/2020 3:42 PM EDT Tissue specimen (specimen) RECTUM STRUCTURE / Unknown 04/15/2020 10:20 AM EDT 04/15/2020 3:42 PM EDT us Dennis Mak MD PATHOLOGY ORDERABLES Final Result [facility] [address] [place] [address] [address] documented in this encounter Visit Diagnoses Diagnosis Iron deficiency anemia, unspecified Diaphragmatic hernia without obstruction or gangrene Diaphragmatic hernia without mention of obstruction or gangrene Diverticulosis of large intestine without perforation or abscess without bleeding Diverticulosis of colon (without mention of hemorrhage) Polyp of colon Benign neoplasm of colon documented in this encounter Care Teams Residence Life Director Relationship Specialty Start Date End Date Benita Infante [facility] [address] [place] [phone] PCP - General 07/10/10 Dennis Mak MD [facility] [address] [place] [address] Internal Medicine-Gastroenterology 07/14/13 [place] [address] [place] [address] Internal Medicine-Rheumatology 02/20/23 documented as of this encounter
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
--- OUTSIDE RECORDS SUMMARY | 2025-07-27 14:06 | XMS_ITS | Encounter Summary ---
Author Organization [place] [address] Care Team Providers Care Panel Installer Name Role Phone Benita Infante Primary Care Provider [phone] Dennis Mak MD Unavailable [phone] Michaela Palacio MD Unavailable [phone] Encounter Details Date Type Department Care Team (Late st Contact Info) Description 04/04/2025 Results Follow-Up [facility] [address] [place] [address] Tim Mcgee MD [address] [place] [address] XR FOOT RIGHT AP LATERAL [...] Visit [facility] [address] [place] [address] Michaela Palacio MD [address] [place] [address] 01/21/2026 10:00 AM EDT Office Visit [facility] [address] [place] [address] Liborio Pardo MD [address] [place] [address] documented as of this encounter Visit Diagnoses Not on filedocumented in this encounter Care Teams Panel Installer Relationship Specialty Start Date End Date Benita Infante [facility] [address] [place] [address] PCP - General 07/10/10 Dennis Mak MD [address] [place] [address] Internal Medicine-Gastroenterology 07/14/13 Michaela Palacio MD [address] [place] [address] Internal Medicine-Rheumatology 02/20/23 documented as of this encounter
--- OUTSIDE RECORDS SUMMARY | 2025-07-27 14:06 | XMS_ITS | Encounter Summary ---
Author Organization [facility] [address] Care Team Providers Care System Administration Manager Name Role Phone Benita Infante Primary Care Provider [phone] Dennis Mak MD Unavailable [phone] Michaela Palacio MD Unavailable [phone] Encounter Details Date Type Department Care Team (Late st Contact Info) Description 04/06/2025 Treatment [facility] [address] [address] Elizabeth Franklin MA Social History [...] Assessment Author No 05/20/2019 10:02 AM EDT Clements, M jan M, RN * Does this person have serious [...] Visit [facility] [address] [place] [address] Michaela Palacio MD [address] [place] [address] 01/21/2026 10:00 AM EDT Office Visit [facility] [address] [phone] Liborio Pardo MD [address] [place], [place] [phone] documented as of this encounter Visit Diagnoses Not on filedocumented in this encounter Care Teams System Administration Manager Relationship Specialty Start Date End Date Benita Infante [address] [place] [address] [address] [place] [address] PCP - General 07/10/10 Dennis Mak MD [address] [place] [address] [address] [place] [address] Internal Medicine-Gastroenterology 07/14/13 Michaela Palacio MD [address] [place] [address] Internal Medicine-Rheumatology 02/20/23 documented as of this encounter
--- OUTSIDE RECORDS SUMMARY | 2025-07-27 14:06 | XMS_ITS | Encounter Summary ---
Author Organization [facility] Address One [facility] [place] [address] Care Team Providers Care Laryngologist Name Role Phone Benita Infante Primary Care Provider [phone] Dennis Mak MD Unavailable [phone] Michaela Palacio MD Unavailable [phone] Encounter Details Date Type Department Care Team (Late st Contact Info) Description 06/02/2020 Orders Only [facility] [place] [address] Manuel Brito MD Social History [...] Description 08/05/2025 2:00 PM EDT [facility] [address] [place] [address] Michaela Palacio MD [address] [place] [address] 01/21/2026 10:00 AM EDT Office Visit [facility] [address] [facility] [address] [place] [address] Liborio Pardo MD [address] [place] [address] documented as of this encounter Procedures Procedure Name Priority Date/Time Associated Diagnosis Comments NEOGENOMICS MISMATCH REPAIR (MMR) IHC PANEL Routine 06/02/2020 1:51 PM EDT documented in this encounter Results * NEOGENOMICS MISMATCH REPAIR (MMR) IHC PANEL (06/02/2020 1:51 PM EDT) Pathologist [facility] Result H&E (Comments) = B) Sigmoid Colon [...] MLH1 in formalin-fixed paraffin-embedded tissue sections. A polymerSocialMeterTV based system was used for detection. MLH1 (Disclaimer) = MMR references ranges are based on Inf[employer]` internal validation, and we recommend cases with equivocal staining be confirmed with microsatellite instability (MSI) testing. MLH1 (Control Statement) = The digitized slide(s) was/were adequate for quantitative image analysis. All controls were reviewed and showed appropriate positive and negative immunoreactivity. MLH1 (Image Analysis Statement) = Whole slide image capture was performed with the [employer] ScanScope and quantitative computer-assisted image analysis using [employer] software. MSH2 (Intended Use) = Mismatch repair [...] MSH2 in formalin-fixed paraffin-embedded tissue sections. A polymerSocialMeterTV based system was used for detection. MSH6 [...] MSH6 in formalin-fixed paraffin-embedded tissue sections. A polymerSocialMeterTV based system was used for detection. PMS2 [...] PMS2 in formalin-fixed paraffin-embedded tissue sections. A One[employer] based system was used for detection. [facility] 06/02/2020 1:51 PM EDT Narrative [facility] - 06/13/2020 1:22 PM EDT Requesting Provider: Gonzalez Hollingsworth Specimen = [id number] us Manuel Brito MD PATHOLOGY ORDERABLES Final Res ult [facility] [address] [place] [id number] documented in this encounter Visit Diagnoses Not on filedocumented in this encounter Care Teams Laryngologist Relationship Specialty Start Date End Date Benita Infante [facility] [address] [place] [address] PCP - General 07/10/10 Dennis Mak MD [address] [place] [address] [address] [place] [address] Internal Medicine-Gastroenterology 07/14/13 Michaela Palacio MD [address] [place] [phone] Internal Medicine-Rheumatology 02/20/23 documented as of this encounter
--- OUTSIDE RECORDS SUMMARY | 2025-07-27 14:07 | XMS_ITS | Encounter Summary ---
Author Organization [place] [address] Care Team Providers Care Bindery Assistant Name Role Phone Benita Ifnante Primary Care Provider [phone] Dennis Mak MD Unavailable [phone] Michaela Palacio MD Unavailable [phone] Encounter Details Date Type Department Care Team (Late st Contact Info) Description 08/12/2013 Orders Only [facility] [address] [facility] [address] [place] [address] Dennis Mak MD [address] [place] [address] Social History Tobacco Use Types [...] Visit [facility] [address] [place] [address] Michaela Palacio MD [address] [place] [address] 01/21/2026 10:00 AM EDT Office Visit [facility] [address] [place] [phone] Liborio Pardo MD [address] [place] [address] documented as of this encounter Procedures Procedure Name Priority Date/Time Associated Diagnosis Comments GMED EGD Routine 08/12/2013 7:30 AM EDT documented in this encounter Results * ED EGD (08/12/2013 7:30 AM EDT) 08/12/2013 7:30 AM EDT Impressions [facility] - 08/12/2013 7:47 AM EDT Normal stomach. Normal duodenum. Normal mucosa in the whole esophagus. (Dilation). Plan: Follow-up as needed This section is an excerpt of the full report, which can be found by clicking the hyperlink. us Dennis Mak MD GI PROCEDURE ORDERABLES Fin al Result [facility] [address] [place] [address] documented in this encounter Visit Diagnoses Not on filedocumented in this encounter Care Teams Bindery Assistant Relationship Specialty Start Date End Date Benita Infante [facility] [address] [place] [address] PCP - General 07/10/10 Dennis Mak MD [address] [place] [address] Internal Medicine-Gastroenterology 07/14/13 Michaela Paalcio MD [address] [place] [address] Internal Medicine-Rheumatology 02/20/23 documented as of this encounter
--- OUTSIDE RECORDS SUMMARY | 2025-07-27 14:07 | XMS_ITS | Clinical Summary ---
Author Organization [facility] Address [facility] [place] [address] Care Team Providers Care Canceling Machine Operator Name Role Phone Unavailable Primary Care [...]
--- OUTSIDE RECORDS SUMMARY | 2025-07-27 14:07 | XMS_ITS | Encounter Summary ---
Author Organization [place] [address] Care Team Providers Care Buckle Assembler Name Role Phone Benita Infante Primary Care Provider [phone] Dennis Mak MD Unavailable [phone] Michaela Palacio MD Unavailable [phone] Encounter Details Date Type Department Care Team (Late st Contact Info) Description 08/12/2013 Orders Only SEP Gastro [facility] [address] [facility] [address] [place] [address] Dennis Mak MD [address] [place] [address] Social History Tobacco Use Types [...] Visit [facility] [address] [place] [address] Michaela Palacio MD [address] [facility] [place] [phone] 01/21/2026 10:00 AM EDT Office Visit SEP Dermatology [facility] [address] [place] [phone] Liborio Pardo MD [address] [place] [address] documented as of this encounter Procedures Procedure Name Priority Date/Time Associated Diagnosis Comments GMED COLONOSCOPY Routine 08/12/2013 12:0 0 AM EDT documented in this encounter Results * GMED COLONOSCOPY (08/12/2013 12:00 AM EDT) 08/12/2013 Impressions [facility] - 08/12/2013 7:44 [...] ORDERABLES Fin al Result Performing Organization Address City/State/[facility] Co de Phone Number [facility] [address] [place] [address] documented in this encounter Visit Diagnoses Not on filedocumented in this encounter Care Teams Buckle Assembler Relationship Specialty Start Date End Date Benita Infante [address] [facility] [address] [place], [place] [address] PCP - General 07/10/10 Dennis Mak MD [address] [facility] [address] [place], [place] [address] Internal Medicine-Gastroenterology 07/14/13 Michaela Palacio MD [address] [place] [address] Internal Medicine-Rheumatology 02/20/23 documented as of this encounter
--- OUTSIDE RECORDS SUMMARY | 2025-07-27 14:07 | XMS_ITS | Encounter Summary ---
Author Organization [place] [address] Care Team Providers Care Pharmacy Affairs Assistant Name Role Phone Benita Infante Primary Care Provider [phone] Dennis Mak MD Unavailable [phone] Michaela Palacio MD Unavailable [phone] Encounter Details Date Type Department Care Team (Late st Contact Info) Description 08/14/2021 Lab [facility] [place] [address] Dennis Mak MD [address] [place] [address] Personal history of other malignant [...] of Assessment Author No 05/20/2019 10:02 AM Mcaie Ag RN * Is the person blind [...] Visit [facility] [address] [place] [address] Michaela Palacio MD [address] [place] [address] 01/21/2026 10:00 AM EDT Office Visit SEP Dermatology [facility] [address] [facility] [address] [place] [address] Liborio Pardo MD [address] [facility] [place] [address] documented as of this encounter Procedures Procedure Name Priority Date/Time Associated Diagnosis Comments PATHOLOGY TISSUE REQUEST Routine 08/14/2021 11:00 AM EDT Personal history of other malignant neoplasm of large intestine Polyp of colon documented in this encounter Results * PATHOLOGY TISSUE REQUEST (08/14/2021 11:00 AM EDT) CASE REPORT Surgical Pathology Case: [id number] Authorizing Provider: Dennis Mak MD Collected: 08/14/2021 1100 Ordering Location: [facility] Received: 08/14/2021 1544 Pathologist: Manuel Brito MD Specimen: Large Intestine, Left/Descending Colon 08/15/2021 11:55 AM EDT [facility] FINAL DIAGNOSIS Descending Colon Polyp x 2: - Sessile Serrated Polyps, Negative For High-Grade Dysplasia. 08/15/2021 11:55 AM EDT [facility] at 1155 EDT GROSS [...] 3:52 PM 08/15/2021 11:55 AM EDT [facility] MICROSCOPIC DESCRIPTION Microscopic examination is performed and the findings corroborate the diagnosis. 08/15/2021 11:55 AM EDT [facility] EMBEDDED IMAGES 08/15/2021 11:55 AM EDT [facility] Tissue DESCENDING COLON STRUCTURE / Unknown 08/14/2021 11:00 AM EDT 08/14/2021 3:44 PM EDT us Dennis Mak MD PATHOLOGY ORDERABLES Final Result [facility] [address] [place] [address] [id number] documented in this encounter Visit Diagnoses Diagnosis Personal history of other malignant neoplasm of large intestine Polyp of colon Benign neoplasm of colon documented in this encounter Care Teams Pharmacy Affairs Assistant Relationship Specialty Start Date End Date Benita Infante [facility] [address] [place] [address] PCP - General 07/10/10 Dennis Mak MD [facility] [address] [place] [address] Internal Medicine-Gastroenterology 07/14/13 [place] [address] [place] [phone] Internal Medicine-Rheumatology 02/20/23 documented as of this encounter
--- OUTSIDE RECORDS SUMMARY | 2025-07-27 14:07 | XMS_ITS | Encounter Summary ---
Author Organization [place] [address] Care Team Providers Care Automated Cutting Machine Operator Name Role Phone Benita Infante Primary Care Provider [phone] Dennis Mak MD Unavailable [phone] Michaela Palacio MD Unavailable [phone] Encounter Details Date Type Department Care Team (Late st Contact Info) Description 08/14/2021 Orders Only SEP Gastro [facility] [address] [facility] [address] [place] [address] Dennis Mak MD [address] [facility] [place] [address] Social History Tobacco Use Types Packs/Day Years [...] Visit [facility] [address] [place] [address] Michaela Palacio MD [address] [place] [address] 01/21/2026 10:00 AM EDT Office Visit [facility]P Dermatology [facility] [address] [facility] [address] [place] [address] Liborio Pardo MD [address] [place] [address] documented as of this encounter Procedures Procedure Name Priority Date/Time Associated Diagnosis Comments GMED COLONOSCOPY Routine 08/14/2021 11:0 0 AM EDT documented in this encounter Results * GMED COLONOSCOPY (08/14/2021 11:00 AM EDT) 08/14/2021 11:0 0 AM EDT Impressions [facility] - 08/14/2021 10:57 AM EDT Polyps (3 mm to 4 mm) in the descending colon. (Polypectomy). Previous Surgery in the colon. Plan: Colonoscopy in 3 years. This section is an excerpt of the full report. us Dennis Mak MD GI PROCEDURE ORDERABLES Fin al Result [facility] [address] [place] [address] documented in this encounter Visit Diagnoses Not on filedocumented in this encounter Care Teams Automated Cutting Machine Operator Relationship Specialty Start Date End Date Benita Infante [address] [place] [address] PCP - General 07/10/10 Dennis Mak MD [address] [place] [address] Internal Medicine-Gastroenterology 07/14/13 Michaela Palacio MD [address] [place] [address] Internal Medicine-Rheumatology 02/20/23 documented as of this encounter
--- OUTSIDE RECORDS SUMMARY | 2025-07-27 14:07 | XMS_ITS | Continuity of Care Document ---
Author Organization [facility] Address [address] [place] [address] Phone Care Team Providers Care Gandy Dancer Name Role Phone Benita Infante Primary Care Provider [phone] Dennis Mak MD Unavailable [phone] Michaela Palacio MD Unavailable [phone] Encounters Date Type Department Care Team Description 04/06/2025 Orders Only [facility] [address] [address] Lidia Emanuel MA 04/06/2025 Orders Only [facility] [address] [address] Con Farris DO 04/06/2025 Telephone [facility] [address] [address] Elizabeth Franklin MA Medication Management 04/06/2025 Treatment [facility] [address] [address] Elizabeth Franklin MA 04/05/2025 Telephone [facility] [address] [address] [place] [address] Catina Acosta NievesSTEVE dodson Results 04/04/2025 Results Follow-Up [address] [place] [address] Tim Mcgee MD XR FOOT RIGHT AP LATERAL AND OBLIQUE 04/04/2025 5:15 PM EDT - 04/04/2025 11:59 PM EDT Hospital Encounter [facility] [address] [place] [address] Acute right ankle pain; Foot pain, right Discharge Disposition: Home or Self Care 04/04/2025 4:15 PM EDT Office Visit [address] [place] [address] Tim Mcgee MD Acute right ankle pain (Primary Dx); Foot pain, right; Acute non-recurrent maxillary sinusitis 03/09/2025 Telephone [facility] [address] [place] [address] Michaela Palacio MD Medication Management (Xeljanz) 02/21/2025 Results Follow-Up [facility] [address] [place] [address] Michaela Palacio MD CBC WITH DIFF, SEDIMENTATION RATE AUTOMATED, C-REACTIVE PROTEIN, Additional followed-up results: 3 02/19/2025 11:40 AM EDT - 02/19/2025 11:59 PM EDT Hospital Encounter [facility] [address] [place] [address] Rheumatoid arthritis of multiple sites 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 (HCC); Drug therapy Discharge Disposition: Home or Self Care 02/08/2025 Refill [facility] [address] [place] [address] Michaela Palacio MD Medication Refill 02/04/2025 Telephone [facility] [address] [place] [address] Michaela Palacio MD Medication Management (Xeljanz) 02/04/2025 2:00 PM EDT Office Visit [facility] [address] [place] [address] Michaela Palacio MD Rheumatoid arthritis of multiple sites 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 (HCC) (Primary Dx); Drug therapy; Primary generalized (osteo)arthritis; Fibromyalgia 01/26/2025 Refill [facility] [address] [place] [address] Michaela Palacio MD Medication Refill 01/18/2025 Telephone [facility] [address] [place] [address] Michaela Palacio MD Medication Management (Xeljanz) 12/31/2024 Refill [facility] [address] [place] [address] Michaela Palacio MD Medication Refill 09/18/2024 Refill [facility] [address] [place] [address] Michaela Palacio MD Medication Refill 09/03/2024 Refill [facility] [address] [place] [address] Michaela Palacio MD Medication Refill 08/10/2024 2:00 PM EDT Office Visit [facility] [address] [place] [address] Michaela Palacio MD Rheumatoid arthritis of multiple sites 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 (HCC) (Primary Dx); Drug therapy; Primary generalized (osteo)arthritis; Fibromyalgia 07/01/2024 Refill [facility] [address] [place] [address] Michaela Palacio MD Medication Refill 06/17/2024 Refill [facility] [address] [place] [address] Michaela Palacio MD Medication Refill 04/16/2024 Refill [facility] [address] [place] [address] Michaela Palacio MD Medication Refill 04/10/2024 Telephone [facility] [address] [place] [address] Lisa Mora, [facility] Results (/) 04/02/2024 1:09 PM EDT - 04/02/2024 11:59 PM EDT Hospital Encounter [facility] CT [address] [place] [address] Rashad Timmons PA-C Lung nodule Discharge Disposition: Home or Self Care 02/01/2024 Refill [facility] [address] [place] [address] Michaela Palacio MD Medication Refill 01/03/2024 Orders Only [facility] [address] [facility] [address] [place] [address] Rashad Timmons PA-C Lung nodule (Primary Dx) 01/02/2024 2:00 PM EST Office Visit [facility] [address] [place] [address] Michaela Palacio MD Rheumatoid arthritis of multiple sites 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 (HCC) (Primary Dx); Drug therapy; Primary generalized (osteo)arthritis; Fibromyalgia 12/27/2023 2:01 PM EST - 12/27/2023 11:59 PM EST Hospital Encounter [facility] [place] [address] [place] [address] Rashad Timmons PA-C Personal history of colon cancer Discharge Disposition: Home or Self Care 12/19/2023 Telephone [facility] [address] [place] [address] Michaela Palacio MD Medication Management 12/12/2023 Orders Only [facility] [address] [place] [address] Michaela Palacio MD Rheumatoid arthritis of multiple sites 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 (HCC) (Primary Dx); Drug therapy 12/12/2023 Telephone [facility] [address] [place] [address] Michaela Palacio MD Medication Management 12/05/2023 Orders Only [facility] [address] [place] [address] Michaela Palacio MD 12/05/2023 Telephone [facility] [address] [place] [address] Michaela Palacio MD Medication Management 11/25/2023 Telephone [facility] [place] [address] [place] [address] Jose Guardado, DPM Other (Lapiplasty procedure/) 11/19/2023 Refill [facility] [address] [place] [address] Daily Bravo MA Medication Refill 09/09/2023 Refill [facility] [address] [place] [address] Chio Meraz MA Medication Refill 09/04/2023 Telephone [facility] [address] [place] [address] Michaela Palacio MD Medication Refill 09/03/2023 Refill [facility] [address] [place] [address] Michaela Palacio MD Medication Refill 09/03/2023 9:54 AM EDT - 09/03/2023 11:59 PM EDT Hospital Encounter [facility] [address] Rashad Timmons PA-C Personal history of colon cancer (Primary Dx); Urinary frequency Discharge Disposition: Home or Self Care 08/02/2023 2:53 PM EDT Anesthesia Event [facility] [place] [address] Reza Sky, [place] Joseph, MORGAN 08/02/2023 Travel 08/02/2023 10:57 AM EDT - 08/02/2023 4:58 PM EDT Emergency [place] [facility] [address] [place] [address] Rip Meyer MD Food impaction of esophagus, initial encounter (Primary Dx) 08/02/2023 Telephone [facility] [address] 3RD [place] [address] Dennis Mak MD Dysphagia 06/27/2023 2:40 PM EDT Office Visit [facility] [address] [place] [address] Michaela Palacio MD Rheumatoid arthritis of multiple sites 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 (HCC) (Primary Dx); Primary generalized (osteo)arthritis; Fibromyalgia; Drug therapy 06/12/2023 Refill [facility] [address] [place] [address] Chio Meraz MA Medication Refill 05/16/2023 Travel 05/16/2023 1:48 PM EDT - 05/16/2023 11:59 PM EDT Hospital Encounter [facility] Mammography [address] [id number] Benita Infante Visit for screening mammogram Discharge Disposition: Home or Self Care 02/21/2023 2:40 PM EDT Office Visit [facility] [address] [place] [address] Michaela Palacio MD Rheumatoid arthritis of multiple sites 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 (HCC) (Primary Dx); Primary generalized (osteo)arthritis; Fibromyalgia 01/29/2023 10:00 AM EDT Office Visit [facility] [address] [facility] [place] [address] Rashad Timmons PA-C History of cancer of rectosigmoid junction (Primary Dx) 12/25/2022 Travel 12/25/2022 4:18 PM EST - 12/25/2022 11:59 PM EST Hospital Encounter [address] [address] Rashad Timmons PA-C Lung nodule Discharge Disposition: Home or Self Care 12/20/2022 Abstract [facility] [address] [place] [address] Michaela Palacio MD 12/20/2022 Orders Only [facility] [address] [place] [address] Michaela Palacio MD 12/10/2022 Orders Only [facility] [address] [place] [address] Michaela Palacio MD 09/10/2022 Travel 09/10/2022 2:36 PM EDT - 09/10/2022 11:59 PM EDT Hospital Encounter [facility] [address] [place] [id number] Personal history of colon cancer Discharge Disposition: Home or Self Care 09/09/2022 Orders Only [facility] [address] [facility] [address] [place] [address] Rashad Timmons PA-C Lung nodule (Primary Dx) 08/21/2022 10:15 AM EDT Office Visit [facility] [address] [facility] [address] [place] [address] Rashad Timmons PA-C Personal history of colon cancer (Primary Dx); Abnormal CT scan, lung 08/10/2022 Telephone [facility]AS ATTN: Appointments in this department are performed at various locations in the community on our Cardiovascular mobile health unit. You can look online to verify your site or call [phone] [address] Cherrie Begum, LIBRA Results 07/26/2022 Travel 07/26/2022 10:08 AM EDT - 07/26/2022 11:59 PM EDT [facility] [address] [place] [address] Rashad Timmons PA-C History of cancer of rectosigmoid junction Discharge Disposition: Home or Self Care 06/22/2022 Telephone [facility] [address] [facility] [address] [place] [address] Colon Brianna Mar RMA Appointment Needed 03/05/2022 Travel 03/05/2022 10:14 AM EDT - 03/05/2022 11:59 PM EDT Hospital Encounter [facility] Mammography [address] [place] [address] Benita Infante Encounter for screening mammogram for malignant neoplasm of breast Discharge Disposition: Home or Self Care 12/21/2021 Travel 12/21/2021 10:35 AM EST - 12/21/2021 11:59 PM EST Hospital Encounter [facility] [place] [address] Personal history of malignant neoplasm of rectum, rectosigmoid junction, and anus Discharge Disposition: Home or Self Care 12/11/2021 3:45 PM EST Office Visit [facility] [address] [place] [address] [place] [address] Rashad Timmons PA-C History of cancer of rectosigmoid junction (Primary Dx) 08/17/2021 Travel 08/17/2021 11:41 AM EDT - 08/17/2021 11:59 PM EDT Hospital Encounter [facility] [address] [place] [address] Judy Gallego APRN Varicose veins of right lower extremity with edema Discharge Disposition: Home or Self Care 08/14/2021 Lab Requisition [facility] [place] [address] Dennis Mak MD Personal history of other malignant neoplasm of large intestine; Polyp of colon 08/14/2021 Orders Only [facility] [address] [facility] [address] [place] [address] Dennis Mak MD 08/11/2021 Travel 08/11/2021 1:35 PM EDT - 08/11/2021 11:59 PM EDT Hospital Encounter [facility] [address] [place] [address] Encounter for screening for COVID-19 Discharge Disposition: Home or Self Care 07/13/2021 1:49 PM EDT - 07/13/2021 11:59 PM EDT Hospital Encounter [facility] [place] [address] [facility] [address] [place] [address] History of colon cancer Discharge Disposition: Home or Self Care 07/13/2021 Travel 07/13/2021 12:30 PM EDT Office Visit [facility] CV [address] [place] [address] Dennis Mak MD History of colon cancer (Primary Dx) 05/05/2021 Travel 05/05/2021 3:45 PM EDT - 05/05/2021 11:59 PM EDT Hospital Encounter [facility] [address] [place] [address] Left hand pain Discharge Disposition: Home or Self Care 05/03/2021 Travel 05/03/2021 2:00 PM EDT Office Visit [facility] [address] [facility] [address] [place] [address] Rashad Timmons PA-C Personal history of malignant neoplasm of rectum, rectosigmoid junction, and anus (Primary Dx) 04/27/2021 Telephone [facility] [address] [place] [address] Gonzalez Vargas MD Other 04/26/2021 Travel 04/26/2021 1:34 PM EDT - 04/26/2021 11:59 PM EDT Hospital Encounter [facility] [place] [address] Rashad Timmons PA-C Personal history of malignant neoplasm of rectum, rectosigmoid junction, and anus Discharge Disposition: Home or Self Care 04/12/2021 Telephone [facility] [address] [place] [address] Dennis Mak MD Colonoscopy 02/09/2021 Travel 02/09/2021 10:55 AM EDT - 02/09/2021 11:59 PM EDT Hospital Encounter [facility] [place] [address] Cristi Sosa MD Breast asymmetry Discharge Disposition: Home or Self Care 02/06/2021 Travel 10/07/2020 Travel 10/04/2020 Telephone [facility] [address] [place] [address] Lucila Rodgers RMA Orders 09/28/2020 3:04 PM EST - 09/28/2020 11:59 PM EST Hospital Encounter [facility] [address] [place] [address] Personal history of malignant neoplasm of rectum, rectosigmoid junction, and anus Discharge Disposition: Home or Self Care 09/28/2020 Travel 09/28/2020 1:40 PM EST Office Visit [facility] [address] [facility] [address] [place] [address] Rashad Timmons PA-C Personal history of malignant neoplasm of rectum, rectosigmoid junction, and anus (Primary Dx) 09/26/2020 Travel 08/10/2020 Travel 08/02/2020 Travel 08/02/2020 1:50 PM EDT Office Visit [facility] [address] [place] [address] Cristi Sosa MD Chronic RLQ pain (Primary Dx); Rectosigmoid cancer (HCC) 07/28/2020 10:07 AM EDT - 07/28/2020 11:59 PM EDT Hospital Encounter [facility] [address] [place] [address] Right lower quadrant abdominal pain; Urinary frequency Discharge Disposition: Home or Self Care 07/28/2020 Travel 07/25/2020 Travel 07/22/2020 Travel 07/22/2020 2:00 PM EDT Office Visit [facility] [address] [facility] [address] [place] [address] Rashad Timmons PA-C Right lower quadrant abdominal pain (Primary Dx); Follow-up examination following surgery; Urinary frequency; History of uterine prolapse 07/14/2020 Telephone [facility] [address] [facility] [address] [place] [address] Gonzalez Vargas MD Advice Only 06/22/2020 Telephone Adult Med [address] [facility] [address] [place] [address] Rashad Timmons PA-C Results 06/21/2020 10:20 AM EDT - 06/21/2020 11:59 PM EDT Hospital Encounter [facility] [address] [place] [address] Postop check Discharge Disposition: Home or Self Care 06/21/2020 Travel 06/21/2020 9:20 AM EDT Office Visit [facility] [address] [facility] [address] [place] [address] Gonzalez Vargas MD Postop check (Primary Dx); Rectosigmoid cancer (HCC) 06/02/2020 5:29 AM EDT - 06/04/2020 6:25 PM EDT Hospital Encounter [facility] [address] [place] [address] [place] [address] Gonzalez Vargas MD Rectosigmoid cancer (HCC); Liver lesion; Rectosigmoid cancer (HCC); Liver lesion Discharge Disposition: Home or Self Care 06/02/2020 Orders Only [facility] [place] [address] Manuel Brito MD 06/02/2020 7:30 AM EDT - 06/02/2020 2:25 PM EDT Surgery [facility] [place] [address] Gonzalez Vargas MD DAVINC ROBOTIC LAPAROSCOPY LOW ANTERIOR COLON RESECTION 06/02/2020 7:36 AM EDT Anesthesia Event [facility] [place] [address] Warren Hernandez MD Powell, Jeanne, LORAINE 06/01/2020 Telephone [facility] [address] [facility] [address] [place] [address] Nelia Harding RMA Prior Authorization; Surgery 05/31/2020 Travel 05/31/2020 9:00 AM EDT Office Visit [facility] [address] [facility] [address] [place] [address] Gonzalez Vargas MD Rectosigmoid cancer (HCC) (Primary Dx) 05/29/2020 Travel 05/29/2020 1:15 PM EDT - 05/29/2020 11:59 PM EDT Hospital Encounter [facility] [address] [address] Covid19, [facility] [place] D[facility] Pre-op testing; Encounter for laboratory testing for COVID-19 virus Discharge Disposition: Home or Self Care 05/20/2020 12:05 PM EDT - 05/20/2020 11:59 PM EDT Hospital Encounter [facility] [place] [address] Gaby Garcia APRN Discharge Disposition: Home or Self Care 05/20/2020 Travel 05/20/2020 10:45 AM EDT - 05/20/2020 12:04 PM EDT Hospital Encounter [facility] PRE-ADMIT TESTING [facility] [place] [address] Preop testing (Primary Dx); Rectosigmoid cancer (HCC) Discharge Disposition: Home or Self Care 05/16/2020 Telephone [facility] [address] [facility] [address] [place] [address] Dennis Mak MD Other 05/13/2020 Travel 05/12/2020 Telephone [facility] [address] [facility] [address] [place] [address] Mari Hyatt MA Surgery 05/10/2020 Orders Only [facility] [address] [facility] [address] [place] [address] Nelia Harding, [facility] Rectosigmoid cancer (HCC) (Primary Dx); Liver lesion 05/09/2020 Telephone [facility] [address] [facility] [address] [place] [address] Marion Curtis, A Surgery 05/06/2020 Travel 05/06/2020 11:58 AM EDT - 05/06/2020 11:59 PM EDT Hospital Encounter [facility] [place] [address] Discharge Disposition: Home or Self Care 05/05/2020 Travel 04/28/2020 Travel 04/28/2020 8:15 AM EDT - 04/28/2020 11:59 PM EDT Hospital Encounter [facility] [place] [address] Rsahad Timmons PA-C Rectosigmoid cancer (HCC) Discharge Disposition: Home or Self Care 04/28/2020 8:14 AM EDT Hospital Encounter [facility] PET CT [address] [facility] [address] [place] [address] Rashad Timmons PA-C Rectosigmoid cancer (HCC) Discharge Disposition: Home or Self Care 04/27/2020 Telephone MD Adult Med [address] [facility] [address] [place] [address] Rashad Timmons PA-C Follow-up 04/27/2020 Travel 04/26/2020 Travel 04/26/2020 3:40 PM EDT Office Visit [facility] [address] [facility] [address] [place] [address] Gonzalez Vargas MD Rectosigmoid cancer (HCC) (Primary Dx); Liver lesion 04/20/2020 Travel 04/20/2020 10:33 AM EDT - 04/20/2020 11:59 PM EDT [facility] [address] [place] [address] Dennis Mak MD Polyp of colon, unspecified part of colon, unspecified type Discharge Disposition: Home or Self Care 04/19/2020 Travel 04/15/2020 Telephone [facility] [address] [facility] [address] [place] [address] Dennis Mak MD Other 04/15/2020 Lab Requisition [facility] [place] [address] Dennis Mak MD Iron deficiency anemia, unspecified; Diaphragmatic hernia without obstruction or gangrene; Diverticulosis of large intestine without perforation or abscess without bleeding; Polyp of colon 04/15/2020 Orders Only [facility] [address] [facility] [address] [place] [address] Dennis Mak MD 04/15/2020 Travel 04/12/2020 Travel 04/12/2020 11:40 AM EDT Clinical Support [facility] [address] [facility] [address] [place] [address] Lab, [facility] Encounter for laboratory testing for COVID-19 virus (Primary Dx) 04/11/2020 Telephone [facility] [address] [facility] [address] [place] [address] Dennis Mak MD COVID-19 Rapid Testing 04/08/2020 Travel 02/09/2020 Travel 02/04/2020 Telephone [facility] [address] [place] [address] Dennis Mak MD Reschedule (d/t covid 19) 12/21/2019 Telephone [facility] [address] [facility] [address] [facility], [place] [id number] Dennis Mak MD Other 12/02/2019 11:16 AM EST - 12/02/2019 11:59 PM EST Hospital Encounter [facility] [address] [place] [address] Ming Santamaria MD Right shoulder pain, unspecified chronicity Discharge Disposition: Home or Self Care 12/02/2019 11:16 AM EST - 12/02/2019 11:59 PM EST Hospital Encounter [facility] [address] [place] [address] Ming Santamaria MD Left shoulder pain, unspecified chronicity Discharge Disposition: Home or Self Care 12/02/2019 11:15 AM EST Hospital Encounter [facility] [address] [place] [address] Ming Santamaria MD Left knee pain, unspecified chronicity Discharge Disposition: Home or Self Care 11/09/2019 Telephone [facility] [address] [facility] [address] [place] [address] Dennis Mak MD Cancellation 09/28/2019 3:30 PM EST - 09/28/2019 11:59 PM EST Hospital Encounter [facility] [address] [place] [id number] Iron deficiency anemia, unspecified iron deficiency anemia type Discharge Disposition: Home or Self Care 09/28/2019 2:15 PM EST Office Visit [facility] [address] [facility] [address] [facility] Dennis Mak MD Iron deficiency anemia, unspecified iron deficiency anemia type (Primary Dx) 09/22/2019 Telephone [facility] [place] [address] [place] [address] Sydney Connell Scribe Other (Surgery ) 09/22/2019 Telephone [facility] [address] [place] [address] Jasmyne Chapman, ABR-OE Other (powerstep issue) 09/11/2019 12:30 PM EDT - 09/11/2019 11:59 PM EDT Hospital Encounter [facility] [address] [place] [address] Cristi Sosa MD Breast mass, right Discharge Disposition: Home or Self Care 09/07/[address] [facility] [address] [place] [address] Cristi Sosa MD Other (testing) 09/04/2019 1:00 PM EDT - 09/04/2019 11:59 PM EDT Hospital Encounter [facility] [address] [facility] [address] [address] Cristi Sosa MD Breast mass, right Discharge Disposition: Home or Self Care 09/03/2019 Orders Only [facility]TT [address] [place] [address] Jeanne Khan RN Breast mass, right (Primary Dx) 09/03/2019 Orders Only [facility] [address] [place] [address] Jose Guardado, MAGUE Hallux valgus of left foot (Primary Dx); Hammer toe of left foot; Exostosis; Rheumatoid arthritis, involving unspecified site, unspecified rheumatoid factor presence (HCC) 09/03/2019 9:40 AM EDT Office Visit [facility] NPTT [address] [place] [address] Cristi Sosa MD Well woman exam (Primary Dx); Encounter for screening mammogram for breast cancer; Encounter for screening colonoscopy; Breast mass, right; FHx: BRCA gene positive 08/28/2019 2:20 PM EDT Ancillary Procedure [facility] Podiatry [address] [place] [address] Jose Guardado DPM Right foot pain Discharge Disposition: Home or Self Care 08/28/2019 1:35 PM EDT Ancillary Procedure [facility] Podiatry [address] [place] [address] Jose Guardado DPM Left foot pain Discharge Disposition: Home or Self Care 08/28/2019 1:15 PM EDT Office Visit [facility] Podiatry [address] [place] [address] Jose Guardado DPM Left foot pain (Primary Dx); Hallux valgus of left foot; Right foot pain 06/01/2019 Telephone [facility] Neurology [facility] [address] [place] [address] Vikas Burnham MD Other (Neuropsych testing) 05/19/2019 9:31 AM EDT - 05/20/2019 5:45 PM EDT Hospital Encounter EDG 7D [facility] [place] [address] Prakash Viramontes MD Discharge Disposition: Home or Self Care 05/19/2019 12:30 PM EDT - 05/19/2019 1:45 PM EDT Surgery EDG [facility] [place] [address] Prakash Viramontes MD TOTAL HIP ARTHROPLASTY/REPLACE MENT-ANTERIOR OR REVISION ANTERIOR (ERICK/LANDY) 05/19/2019 11:52 AM EDT Anesthesia Event [facility] [place] [address] Esther Zarate MD Braxton-Brown, Jennifer, APRN 05/07/2019 12:39 PM EDT - 05/07/2019 11:59 PM EDT Hospital Encounter [facility] EKG [facility] [address] [place] [address] Luz Elena Bernard APRN Discharge Disposition: Home or Self Care 05/07/2019 11:52 AM EDT - 05/07/2019 12:38 PM EDT Hospital Encounter [facility] LABORATORY [facility] Dr. [place] [address] Preop examination (Primary Dx); Post concussion syndrome Discharge Disposition: Home or Self Care 05/07/2019 Travel 05/07/2019 10:30 AM EDT - 05/07/2019 11:51 AM EDT Hospital Encounter EDG PRE-ADMIT TESTING [facility] Dr[address] Boucher [place] [address] Encounter for preadmission testing (Primary Dx); Anticoagulation adequate; Preop testing; Primary osteoarthritis of right hip Discharge Disposition: Home or Self Care 05/05/2019 11:00 AM EDT Office Visit [facility] Neurology [facility] [address] [place] [address] Vikas Burnham MD Post concussion syndrome (Primary Dx) 01/28/2019 12:39 PM EDT - 01/28/2019 11:59 PM EDT Hospital Encounter [facility] [address] [address] Ming Santamaria MD Bilateral hip pain Discharge Disposition: Home or Self Care 10/30/2018 2:13 PM EST - 10/30/2018 11:59 PM EST Hospital Encounter [facility] [address] [address] Ming Santamaria MD Strain of neck muscle, initial encounter; Strain of thoracic region, initial encounter; Strain of lumbar region, initial encounter Discharge Disposition: Home or Self Care 10/30/2018 2:12 PM EST [facility] [address] [address] Ming Santamaria MD Strain of neck muscle, initial encounter; Strain of thoracic region, initial encounter; Strain of lumbar region, initial encounter Discharge Disposition: Home or Self Care 10/30/2018 2:00 PM EST - 10/30/2018 2:11 PM EST Hospital Encounter [facility] MRI [address], [place] [address] Ming Santamaria MD Strain of neck muscle, initial encounter; Strain of thoracic region, initial encounter; Strain of lumbar region, initial encounter Discharge Disposition: Home or Self Care 09/18/2018 12:36 PM EST - 09/18/2018 11:59 PM EST [facility] [place] [address] Ming Santamaria MD Traumatic injury of head, sequela Discharge Disposition: Home or Self Care 09/18/2018 12:07 PM EST - 09/18/2018 12:35 PM EST Hospital Encounter EDG NUC [facility] [place] [address] Ming Santamaria MD Discharge Disposition: Home or Self Care 09/18/2018 11:00 AM EST - 09/18/2018 12:06 PM EST Hospital Encounter EDG NUC [facility] [place] [address] Ming Santamaria MD Low back pain, unspecified back pain laterality, unspecified chronicity, with sciatica presence unspecified Discharge Disposition: Home or Self Care 10/30/2016 10:26 AM EST - 10/30/2016 10:29 AM EST Hospital Encounter EDG D-WING XRAY [facility] [place] [address] Cough Discharge Disposition: Home or Self Care 10/30/2016 10:30 AM EST - 10/30/2016 11:59 PM EST Hospital Encounter EDG PFT LAB [facility] [place] [address] Discharge Disposition: Home or Self Care 06/14/2016 2:59 PM EDT - 06/14/2016 11:59 PM EDT Hospital Encounter [facility] [place] MRI [address] [address] Benita Infante Cervical radiculopathy Discharge Disposition: Home or Self Care 05/16/2016 2:15 PM EDT - 05/16/2016 3:18 PM EDT Hospital Encounter EDG D-WING XRAY [facility] [place] [address] Neck pain Discharge Disposition: Home or Self Care 05/16/2016 3:19 PM EDT - 05/16/2016 11:59 PM EDT Hospital Encounter [facility] Mammography [facility] [place] [address] Benita Infante Visit for screening Discharge Disposition: Home or Self Care 10/03/2015 1:03 PM EST - 10/03/2015 2:10 PM EST Emergency [facility] [place] [address] Jeremiah Plaza MD Transient elevated blood pressure (Primary Dx) Discharge Disposition: Home or Self Care 05/12/2015 12:48 PM EDT - 05/12/2015 11:59 PM EDT Hospital Encounter [facility] [place] [address] Benita Infante Other screening mammogram Discharge Disposition: Home or Self Care 03/05/2015 9:00 AM EDT - 03/05/2015 11:59 PM EDT Hospital Encounter EDG HOLTER MONITOR [facility] [place] [address] Benita Infante Heart rate slow Discharge Disposition: Home or Self Care 11/29/2014 9:21 AM EST - 11/29/2014 11:59 PM EST Hospital Encounter [facility] Stress Test [facility] [place] [address] Jose Curtis MD Chest pain Discharge Disposition: Home or Self Care 11/29/2014 9:21 AM EST - 11/29/2014 11:59 PM EST Hospital Encounter EDG NUC MED [facility] [place] [address] Jose Curtis MD Chest pain Discharge Disposition: Home or Self Care 11/26/2014 4:00 PM EST - 11/26/2014 11:59 PM EST Hospital Encounter [facility] EKG [facility] [place] [address] Chest pain, unspecified Discharge Disposition: Home or Self Care 09/13/2014 1:30 PM EST - 09/13/2014 11:59 PM EST Hospital Encounter [facility] VASCULAR LAB [address] [place] [address] Javed Curtis MD Leg edema; Leg pain Discharge Disposition: Home or Self Care 10/29/2013 2:01 PM EST - 10/29/2013 11:59 PM EST Hospital Encounter [facility] Mammography [facility] [place] [address] Benita Infante Other screening mammogram Discharge Disposition: Home or Self Care 09/02/2013 10:00 AM EDT - 09/02/2013 11:59 PM EDT Hospital Encounter [facility] XRAY [address] [place] [address] Dennis Mak MD Nausea; Sternum pain; Abdominal pain, acute, epigastric Discharge Disposition: Home or Self Care 08/27/2013 Telephone [facility] [address] [place] [address] [facility] [address] Dennis Mak MD Other 08/17/2013 8:00 AM EDT - 08/17/2013 9:15 AM EDT Surgery [facility] PERIOP [address] [place] [address] Moustapha Shaffer DPM BUNIONECTOMY/SIMPLE/ SILVER/OFF SET V 08/17/2013 6:59 AM EDT - 08/17/2013 10:10 AM EDT Hospital Encounter [facility] SAME DAY SURGERY [address] [place] [address] Moustapha Shaffer DPM Discharge Disposition: Home or Self Care 08/12/2013 Orders Only [facility] [address] [place] [address] [facility] [place] [address] Dennis Mak MD 08/12/2013 Orders Only [facility] [address] [place] [address] [facility] [place] [address] Dennis Mak MD 08/12/2013 Orders Only [facility] [address] [place] [address] [place] [address] Dennis Mak MD 08/11/2013 9:00 AM EDT - 08/11/2013 11:59 PM EDT Hospital Encounter [facility] PRE-ADMIT TESTING [address] [place] [address] Pat, Ftt Discharge Disposition: Home or Self Care 07/14/2013 1:45 PM EDT - 07/14/2013 11:59 PM EDT Hospital Encounter EDG D-WING XRAY [facility] [place] [address] Bunion Discharge Disposition: Home or Self Care 07/14/2013 3:10 PM EDT Office Visit [facility] Gastro CV [address] [place] [address] [place] [address] Dennis Mak MD Dysphagia (Primary Dx); Family history of colon cancer 07/10/2013 Telephone [facility] [address] [facility] [address] [place] [address] Dennis Mak MD Other (returning call) 07/16/2012 5:42 AM EDT - 07/16/2012 11:59 PM EDT Hospital Encounter Mobile Mammography Other Location View online schedule for mobile van location [phone] Benita Infante Other screening mammogram Discharge Disposition: Home or Self Care 07/03/2012 11:33 AM EDT - 07/03/2012 11:59 PM EDT Hospital Encounter [facility] MRI [address] [place] [address] Harvey aB DC Pain in joint, other specified sites Discharge Disposition: Home or Self Care 08/02/2010 9:56 AM EDT - 08/02/2010 11:59 PM EDT Hospital Encounter [facility] [place] [address] Benita Infante Other screening mammogram Discharge Disposition: Home or Self Care 07/06/2009 12:01 AM EDT - 07/06/2009 11:59 PM EDT Hospital Encounter HST EPIC CON UNK EDG Benita Infante 06/30/2009 12:01 AM EDT - 06/30/2009 11:59 PM EDT Hospital Encounter HST EPIC CON UNK EDG Benita Infante 04/28/2009 9:56 AM EDT - 04/28/2009 12:50 [...] PM EDT Hospital Encounter HST RADIOLOGY EDG Benita Infante 03/23/2008 1:52 PM EDT - 03/23/2008 11:59 PM EDT Hospital Encounter HST BREAST HEA CTR EDG Benita Infante 03/01/2007 1:27 PM EDT - 03/01/2007 11:59 PM EDT Hospital Encounter HST LAB EDG Arcadio Blum MD 11/05/2006 9:49 AM EST - 11/05/2006 11:59 PM EST Hospital Encounter HST RADIOLOGY EDG Benita Infante 10/18/2006 12:01 AM EST - 10/18/2006 11:59 PM EST Hospital Encounter [facility]ST RADIOLOGY EDG Benita Infante 09/03/2006 12:01 AM EDT - 09/03/2006 11:59 PM EDT Hospital Encounter [facility]ST BREAST HEA CTR EDG Benita Infante 02/13/2006 1:13 PM EDT - 02/13/2006 11:59 [...] PM EDT Hospital Encounter [facility] CTR WOM JENNIFER ED ArelisBenita khalil 06/08/2003 1:24 AM EDT - 06/08/2003 11:59 PM EDT Hospital Encounter [facility] CTR WOM JENNIFER ED Benita Infante 04/08/2003 7:54 PM EDT - 04/08/2003 9:45 PM EDT Emergency HST MINOR ER EDG Melody Martinez MD 08/27/2002 11:01 AM EDT - 08/27/2002 11:59 PM EDT Hospital Encounter [facility]ST RADIOLOGY EDG Erica Veliz 05/11/2002 6:05 AM EDT - 05/11/2002 11:59 PM EDT Hospital Encounter HST RADIOLOGY EDG Benita Infante 04/29/2002 5:48 AM EDT - 04/29/2002 11:59 PM EDT Hospital Encounter HST RADIOLOGY EDG ArelisBenita packer 04/22/2002 4:55 PM EDT - 04/23/2002 2:52 PM EDT Hospital Encounter HST TCA VelHeidi nguyen 10/20/2001 7:03 PM EST - 10/20/2001 7:40 [...] 600 mg by mouth daily. Calcium Active Ptl-Gbgfofovtd-T cetaminop-Caf 19-397-15-30 mg Oral Capsule Take by mouth. Ac [...] Active fluticasone propionate (FLONASE) 50 mcg/actuation Nasl [place], Suspension 1 [place] by Nasal route daily. 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 Overview (05/10/2020): Added automatically from request for surgery [id number] Liver lesion 05/10/2020 Overview (05/10/2020): Added automatically from request for surgery [id number] Hallux valgus of left foot 09/03/2019 Overview (09/03/2019): Added automatically from request for surgery [id number] Hammer toe of left foot 09/03/2019 Overview (09/03/2019): Added automatically from request for surgery [id number] Exostosis 09/03/2019 Overview (09/03/2019): Added automatically from request for surgery [id number] Rheumatoid arthritis of mult iple sites 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 09/03/2019 Overview (09/03/2019): Added automatically from request for surgery [id number] Osteoarthritis of right hip 05/19/2019 Polypharmacy 05/19/2019 [...] Sister Social History Smoking Status as of 07/27/2025 Tobacco Use Types Packs/Day Years Used Date [...] [facility] [address] [place] [address] Michaela Palacio MD [address] [place] [address] 01/21/2026 10:00 AM EDT Office Visit [facility] Dermatology CV [address] [facility] [address] [place] [address] Liborio Pardo MD [address] [place] [address] Medical Devices Implanted Type Area Automobile Brake Bonder Device Identifier Shelf Expiration Date Model / Serial / Lot Shell Acetabular Trident Ii Tritanium D 50mm Screwhole Clust - [id number] Implanted:Qty: 1 on 05/19/2019 by Prakash Viramontes MD at [facility] Right: Hip ERICK:ORTHOPEDI CS 01/08/2024 [id number] / / [id number] Insert Trident X 3 0 Degree 36mm D - [id number] Implanted:Qty: 1 on 05/19/2019 by Prakash Viramontes MD at [facility] Right: Hip ERICK:ORTHOPEDI CS 03/05/2024 [id number] / / [id number] 6.5mm Low Profile Hex Screw 30mm - [id number] Implanted:Qty: 1 on 05/19/2019 by Prakash Viramontes MD at [facility] Right: Hip ERICK:ORTHOPEDI 04/06/2024 [id number] / / [id number] Size 5 Accolade Ii 127 Deg - [id number] Implanted:Qty: 1 on 05/19/2019 by Prakash Viramontes MD at [facility] Right: Hip ERICK:ORTHOPEDI 04/04/2024 [id number] / / [id number] Head Fem -5mm Ofst Tpr 36mm Hip Blx D V40 Strl - [id number] Implanted:Qty: 1 on 05/19/2019 by Prakash Viramontes MD at [facility] Right: Hip ERICK:ORTHOPEDI 06/19/2023 6570-0-036 / / [id number] Procedures Procedure Name Priority Date/Time Associated Diagnosis [...] 09/04/2019 1:32 PM EDT Breast mass, right CLIENT RELATIONSHIP CONSULTANT CYTOLOGY REQUEST (PAP ONLY) Routine 09/03/2019 11:09 AM EDT Well woman exam [facility] CLIENT RELATIONSHIP CONSULTANT CYTOLOGY ORDER Routine 9 11:09 AM EDT [...] particular day. Also takes random dose of eosxplijxf82 mg up to 3 x monthly for [...] LEFT FOOT ; Surgeon: Moustapha Shaffer DPM;Location: [facility] MAIN OR; Service: Orthopedics COLONOSCOPY FOOT SURGERY right bunioun HAND SURGERY right HIP ARTHROPLASTY Right 05/19/2019 right hip total replacement anterior; Surgeon: Prakash Viramontes MD;Location: [facility] MAIN OR; Service: Orthopedics HIP SURGERY left replacement JOINT REPLACEMENT LEFT HIP KNEE SURGERY lt knee arthroscopy TUBAL LIGATION UPPER GASTROINTESTINAL ENDOSCOPY Medications Prior to Admission Medication Sig Dispense Refill Last Dose amLODIPine (NORVASC) 2.5 mg Oral Tablet Take 10 mg by mouth daily.UNSRUE OF DOSAGE 05/18/2019 at 1900 [DISCONTINUED] vkdoqte-lseinjhbwvtlu-iiaxflxx (EXCEDRIN EXTRA STRENGTH)250-250-65 mg Oral Tablet Take 1 Tab by mouth every 6 hours as needed forPain. Taking at Unknown time B-complex with vitamin C (VITAMIN B COMPLEX-C ORAL) Take by mouth.05/18/2019 at 1900 CANNABIDIOL, CBD, EXTRACT ORAL Take 1,500 mg by mouth. 05/18/2019 [id number] cetirizine (ZYRTEC) 10 mg Oral Tablet Take [...] Take 450 Units by mouth daily. 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 PROCEDURE COMMENTS: XR FOOT RIGHT AP LATERAL AND OBLIQUE FINDINGS: No definite acute fracture or malalignment. First MTP arthrodesis with screws. Chronic appearing deformity of the third proximal phalanx. Mild soft tissue edema. Procedure Note Jeremiah Welch MD - 04/04/2025 XR FOOT RIGHT AP LATERAL AND OBLIQUE, 04/04/2025 5:43 PM CLINICAL HISTORY: M79.671-Pain in right fdge-TYY-52-CM COMPARISON: None. PROCEDURE COMMENTS: XR FOOT RIGHT [...] in right ankle and joints of right ctia-CNF-39-CM COMPARISON: None. PROCEDURE COMMENTS: XR ANKLE RIGHT AP LATERAL AND OBLIQUE FINDINGS: No acute fracture or malalignment. Soft tissue swelling around the ankle greatest anteromedially. Procedure Note Jeremiah Welch MD - 04/04/2025 XR ANKLE RIGHT AP LATERAL AND OBLIQUE, 04/04/2025 5:43 PM CLINICAL HISTORY: M25.571-Pain in right ankle and joints of right nfpv-CVA-67-CM COMPARISON: None. PROCEDURE COMMENTS: XR ANKLE RIGHT [...] QUANTIFERON TB GOLD (02/19/2025 11:47 AM EDT) [facility] Quantiferon-TB Gold in Tube Negative Negative 02/20/2025 11:18 AM EDT PREFERRED [employer] [employer] Quantiferon Mitogen minus NIL 9.9759 IU/mL 02/20/2025 11:18 AM EDT [employer], [facility] Quantiferon NIL 0.0241 IU/mL 11:18 AM EDT [facility]REF[facility] [employer] [employer] QUANTIFERON TB1 MINUS NIL -0.0098 IU/mL 02/20/2025 11:18 AM EDT [employer] QUANTIFERON TB2 MINUS NIL -0.0089 IU/mL 02/20/2025 11:18 AM EDT [employer] Blood VENOUS BLOOD / Unknown Venipuncture / Unknown 02/19/2025 11:47 AM EDT 02/19/2025 11:47 AM EDT Narrative [employer], [facility] - 02/20/2025 11:18 AM EDT Interferon gamma [...] Palacio MD IMMUNOLOGY ORDERABLES Final Re sult Performing Organization Address [facility] de Phone Number [facility] [employer] [address] , [place] [address] * SEDIMENTATION RATE AUTOMATED (02/19/2025 11:47 AM EDT) [facility] Sed Rate 5 0 - 30 mm/hr 02/19/2025 4:06 PM EDT [facility] [employer] Blood VENOUS BLOOD / Unknown Venipuncture / Unknown 02/19/2025 11:47 AM EDT 02/19/2025 11:47 AM EDT us Michaela Palacio MD HEMATOLOGY ORDERABLES Final Re sult Performing Organization Address [facility] Phone Number [facility] [employer] , [place] [address] * (ABNORMAL) CBC WITH DIFF (02/19/2025 11:47 AM EDT) Only the most recent of8 resultswithin the time period is included. [facility] WBC 5.5 3.7 - 10.3 x10(3)/mcL 02/19/2025 4:06 PM EDT [employer] RBC 3.88(L) 3.90 - 5.20 x10(6)/mcL 02/19/2025 4:06 PM EDT [facility] [employer] Hgb 12.2 11.2 - 15.7 g/dL 02/19/2025 4:06 PM EDT [facility] [employer] Hct 37.8 34.0 - 45.0 % 02/19/2025 4:06 PM EDT [facility] [employer] MCV 97.4 80.0 - 100.0 fL 02/19/2025 4:06 PM EDT [facility] MCH 31.4 26.0 - 34.0 pg 02/19/2025 4:06 PM EDT [facility] MCHC 32.3 30.7 - 35.5 g/dL 02/19/2025 4:06 PM EDT [facility] RDW 13.2 <=14.9 % 02/19/2025 4:06 PM EDT [facility] Platelet 292 155 - 369 x10(3)/mcL 02/19/2025 4:06 PM EDT [facility] MPV 10.5 8.8 - 12.5 fL 02/19/2025 4:06 PM EDT [facility] Neut Percent 67.0 % 02/19/2025 4:06 PM EDT [facility] Comment:Neutrophils equals s egs plus bands Imm Gran% 0.4 % 02/19/2025 4:06 PM EDT [facility] Comment:Automated count of m etamyelocytes, myelocytes and promyelocytes. Lymph Percent 24.1 % 02/19/2025 4:06 PM EDT [facility] [place] Percent 6.7 % 02/19/2025 4:06 PM EDT [facility] Eos Percent 1.3 % 02/19/2025 4:06 PM EDT [facility] Baso Percent 0.5 % 02/19/2025 4:06 PM EDT [facility] Neut # 3.7 1.6 - 6.1 x10(3)/mcL 02/19/2025 4:06 PM EDT [facility] Comment:Neutrophils equals s egs plus bands IMMGRAN# 0.0 0.0 - 0.1 x10(3)/mcL 02/19/2025 4:06 PM EDT [facility] Comment:Automated count of m etamyelocytes, myelocytes and promyelocytes. An absolute IG <0.1 is reported as 0.0. Lymph # 1.3 1.2 - 3.9 x10(3)/mcL 02/19/2025 4:06 PM EDT [facility] [place] # 0.4 0.3 - 0.9 x10(3)/mcL 02/19/2025 4:06 PM EDT [facility] [employer], [facility] Eos# 0.1 0.0 - 0.5 x10(3)/mcL 02/19/2025 4:06 PM EDT [facility] [employer], [facility] Baso # 0.0 0.0 - 0.1 x10(3)/mcL 02/19/2025 4:06 PM EDT [facility] Blood VENOUS BLOOD / Unknown Venipuncture / Unknown 02/19/2025 11:47 AM EDT 02/19/2025 11:47 AM EDT us Michaela Palacio MD HEMATOLOGY ORDERABLES Final Re sult Performing Organization Address City/[facility]/ZIP Co de Phone Number [facility] [employer] , [place] [address] * C-REACTIVE PROTEIN (02/19/2025 11:47 AM EDT) CRP <3.00 <=5.00 mg/L 02/19/2025 8:03 PM EDT [facility] Blood VENOUS BLOOD / Unknown Venipuncture / Unknown 02/19/2025 11:47 AM EDT 02/19/2025 11:47 AM EDT us Michaela Palacio MD CHEMISTRY ORDERABLES Final Res ult Performing Organization Address City/[facility]/ZIP Co de Phone Number [facility] [employer] , [place] [address] * CREATININE (02/19/2025 11:47 AM EDT) Creatinine 0.77 0.51 - 1.30 mg/dL 02/19/2025 8:03 PM EDT [facility] eGFR (CKD-EPIcr 2020) 83 >=60 mL/min/1.7 3 m2 02/19/2025 8:03 PM EDT [facility] Comment:Estimated GFR was ca lculated using the CKD-EPIcr (2020) equation refit without race. The equation is recommended by the National Kidney Foundation - [place] Society of Nephrology Task Force. Blood VENOUS BLOOD / Unknown Venipuncture / Unknown 02/19/2025 11:47 AM EDT 02/19/2025 11:47 AM EDT us Michaela Palacio MD CHEMISTRY ORDERABLES Final Res ult Performing Organization Address City/[facility]/ZIP Co de Phone Number [facility], [address] , [place] [address] * HEPATIC FUNCTION PANEL (02/19/2025 11:47 AM EDT) Pathologist [facility] Total Protein 6.7 6.4 - 8.3 gm/dL 02/19/2025 8:03 PM EDT [facility] Albumin 3.8 3.2 - 4.6 gm/dL 02/19/2025 8:03 PM EDT [facility] Bili Direct <0.2 0.0 - 0.3 mg/dL 02/19/2025 8:03 PM EDT [facility] Bili Total 0.3 0.2 - 1.3 mg/dL 02/19/2025 8:03 PM EDT [facility] AST 27 <=40 U/L 02/19/2025 8:03 PM EDT [facility] ALT 16 <=41 U/L 02/19/2025 8:03 PM EDT [facility] Alk Phos 90 36 - 123 U/L 02/19/2025 8:03 PM EDT [facility] Blood VENOUS BLOOD / Unknown Venipuncture / Unknown 02/19/2025 11:47 AM EDT 02/19/2025 11:47 AM EDT us Michaela Palacio MD CHEMISTRY ORDERABLES Final Res ult Performing Organization Address City/[facility]/ZIP Co de Phone Number [facility], [facility] [address] [facility] , [place] [address] * CT VILMA LUNG NODULE FOLLOW UP (04/02/2024 1:16 PM EDT) Only the most recent of2 resultswithin the time period is included. Anatomical Region Laterality Modality Chest Computed Tomogra phy 04/02/2024 1:16 PM EDT Impressions 04/02/2024 2:09 PM EDT Resolution of previous faint nodule right lower lobe. Therefore inflammatory. No suspicious nodules. RECOMMENDATION (KAYLAN 2017): Resolving lesion. No further follow-up is [...] HISTORY: Follow up lung nodule. R91.1-Solitary pulmonary hgmpvm-BPV-95-CM. COMPARISON: 12/27/2023 PROCEDURE COMMENTS: Noncontrast, low-dose, multidetector [...] HISTORY: Follow up lung nodule. R91.1-Solitary pulmonary dcnekk-WUS-76-CM. COMPARISON: 12/27/2023 PROCEDURE COMMENTS: Noncontrast, low-dose, multidetector [...] of3 resultswithin the time period is included. Sed Rate 17 < OR = 30 mm/h [facility] 01/02/2024 2:43 PM EST 01/02/2024 2:43 PM EST Michaela Palacio MD [facility]-HEMATOLOGY ORDERABLES Fi nal Result [facility] [address] [place] [address] * HEPATIC FUNCTION PANEL-[facility] (01/02/2024 2:43 PM EST) Only the most recent of2 resultswithin the time period is included. Protein, Total 7.3 6.1 - 8.1 g/dL [facility] Albumin 4.4 3.6 - 5.1 g/dL [facility] Globulin 2.9 1.9 - 3.7 g/dL (calc) [facility] Albumin/Globuli n Ratio 1.5 1.0 [...] ORDERABLES Fin al Result Performing Organization Address [facility] de Phone Number [facility] [address] [place] [address] * CREATININE-[facility] (01/02/2024 2:43 PM EST) Only the most recent of2 resultswithin the time period is included. Pathologist [facility] Creatinine 0.72 0.50 - 1.05 mg/dL [facility] [facility] EGFR 91 > OR = 60 mL/min/1.73 m2 [facility] 01/02/2024 2:43 PM EST 01/02/2024 2:43 PM EST Michaela Palacio MD QUEST-CHEMISTRY ORDERABLES Fin al Result Performing Organization Address City/[facility] Co de Phone Number QUEST [facility] [address] [place] [address] * C REACTIVE PROTEIN-QUEST (01/02/2024 2:43 PM EST) Only the most recent of3 resultswithin the time period is included. Pathologist [facility] CRP 1.2 <8.0 mg/L [facility] 01/02/2024 2:43 PM EST 01/02/2024 2:43 PM EST us Michaela Palacio MD QUEST-CHEMISTRY ORDERABLES Fin al Result QUEST [facility] [address] [place] [address] * CBC WITH AUTO DIFF-QUEST (01/02/2024 2:43 PM EST) Only the most recent of3 resultswithin the time period is included. Pathologist [facility] WBC 7.4 3.8 - 10.8 Thousand/u L [facility] RBC 4.27 3.80 - 5.10 Million/uL [facility] Hemoglobin 13.7 11.7 - 15.5 g/dL [facility] Hematocrit 40.6 35.0 - 45.0 % [facility] MCV 95.1 80.0 - 100.0 fL [facility] MCH 32.1 27.0 - 33.0 pg [facility] MCHC 33.7 32.0 - 36.0 g/dL [facility] RDW 12.5 11.0 - 15.0 % [facility] Platelets 338 140 - 400 Thousand/u L [facility] MPV 10.1 7.5 - 12.5 fL [facility] Neut# 5,002 1,500 - 7,800 cells/uL [facility] Lymph# 1,717 850 - 3,900 cells/uL [facility] Monocytes(Absol sara) 540 200 - 950 cells/uL [facility] Eos 111 15 - 500 cells/uL [facility] Baso# 30 0 - 200 cells/uL [facility] Neut Percent 67.6 % [facility] Lymph Percent 23.2 % [facility] Monocytes 7.3 % [facility] Eos Percent 1.5 % [facility] Baso Percent 0.4 % [facility] 01/02/2024 2:43 PM EST 01/02/2024 2:43 PM EST us Michaela Palacio MD QUEST-HEMATOLOGY ORDERABLES Fi nal Result [facility] [address] [place] [address] * QUANTIFERON(R)-TB GOLD PLUS, 1-QUEST (01/02/2024 2:43 PM EST) Only the most recent of2 resultswithin the time period is included. [facility] QUANTIFERON(R)-T B GOLD PLUS, 1 TUBE NEGATIVE NEGATIVE [facility] Comment: Negative test result. M. tuberculosis complex [...] T-lymphocytes. For additional information, please refer to [email or web address] [email or web address])/faq/TLU782 (This link is being provided for informational/ educational purposes only.) 01/02/2024 2:43 PM EST 01/02/2024 2:43 PM EST us Michaela BOWLES-IMMUNOLOGY ORDERABLES Fi nal Result QUEST [facility] [address] [facility] [place] [address] * CT CHEST ABDOMEN PELVIS W CONTRAST [...] history of other malignant neoplasm of large qkdvykekw-BPJ-44-CM. COMPARISON: December 25, [address] and [...] Levoscoliosis of the lumbar spine. Procedure Note CoreenCande MD - 12/27/2023 CT CHEST, ABDOMEN, AND PELVIS WITH CONTRAST, 12/27/2023 2:37 PM CLINICAL HISTORY: Z85.038-Personal history of other malignant neoplasm oflarge dodvwureu-FFV-05-CM. COMPARISON: December 25, [address] and [...] of4 resultswithin the time period is included. Pathologist [facility] Creatinine-iST AT 0.8 0.6 - 1.3 mg/dL 12/27/2023 2:33 PM EST [facility] Blood BLOOD SPECIMEN / Unknown 12/27/2023 2:30 PM EST 12/27/2023 2:33 PM EST Rashad Timmons PA-C POINT OF CARE TEST ORDERABLE S Final Result CHARLENE BOUCHER [address] [address] * ESOPHAGOGASTRODUODENOSCOPY (EGD) (08/02/2023 3:34 PM EDT) [...] None Staff Staff Role Ilana Santiago RN Vehicle Mechanic MORGAN Hill CRNA, MD Performing Provider MORGAN [...] 08/02/2023 3:27 PM Specimens No specimens collected us Leora Vegas Kayden [facility]PTWIST SPINNER ENDOSCOPY PROCEDURE ORDER XAVIER Final Result * INTRAOP AIRWAY PLACEMENT (08/02/2023 3:03 PM EDT) Narrative [facility] - 08/02/2023 3:03 PM EDT [place] Otoole, FABRIC CUTTER 08/02/2023 3:10 PM Intraop Airway Placement: Date/Time: [...] Condition: Unchanged and Atraumatic Insertion attempts: 1 Reza Sky DO [place] ANESTHESIA Edited Resu lt - Final [facility] [address] [place] [id number] * (ABNORMAL) BASIC METABOLIC PANEL (08/02/2023 11:48 AM EDT) Only the most recent of8 resultswithin the time period is included. Sodium 142 136 - 145 mmol/L 08/02/2023 12:13 PM EDT [facility] Potassium 3.2(L) 3.5 - 5.0 mmol/L 08/02/2023 12:13 PM EDT [facility] Chloride 104 98 - 107 mmol/L 08/02/2023 12:13 PM EDT [facility] Total CO2 28 22 - 29 mmol/L 08/02/2023 12:13 PM EDT [facility] Anion Gap 10 7 - 16 mmol/L 08/02/2023 12:13 PM EDT [facility] Calcium 9.4 8.8 - 10.4 mg/dL 08/02/2023 12:13 PM EDT [facility] Glucose Lvl 102(H) 82 - 100 mg/dL 08/02/2023 12:13 PM EDT [facility] BUN 19 8 - 23 mg/dL 08/02/2023 12:13 PM EDT [facility] Creatinine 0.73 0.51 - 1.30 mg/dL 08/02/2023 12:13 PM EDT [facility] eGFR (CKD-EPIcr 2020) 89 >=60 mL/min/1.7 3 m2 08/02/2023 12:13 PM EDT [facility] Comment:Estimated GFR was ca lculated using the CKD-EPIcr (2020) equation refit without race. The equation is recommended by the National Kidney Foundation - [place] [employer] of Nephrology Task Force. Blood VENOUS BLOOD / Unknown Venipuncture / Unknown 08/02/2023 11:48 AM EDT 08/02/2023 11:56 AM EDT Rip Meyer MD CHEMISTRY ORDERABLES Final Resul t [facility] [address] [place], [place] [id number] * COMPREHENSIVE METABOLIC PANEL-QUEST (07/04/2023 2:16 PM EDT) Pathologist [facility] Glucose 87 65 - 99 mg/dL [facility] [...] QUEST-CHEMISTRY ORDERABLES Fin al Result QUEST [facility] [address] [place] [address] * MM MAMMO DIGITAL BONY SCREEN BILAT (05/16/2023 2:07 PM EDT) Only the most recent of2 resultswithin the time period is included. Anatomical Region Laterality Modality Breast Bilateral Mammography 05/16/2023 2:51 PM EDT Impressions 05/16/2023 2:51 PM EDT Negative (IEU-Erypmexk-9) ~ RECOMMENDATION: Routine screening mammogram in 1 [...] the next mammogram, in accordance with the [place] [employer] and the Society of Breast Imaging recommendations. Narrative 05/16/2023 2:51 PM EDT Procedure:MM MAMMO DIGITAL BONY SCREEN BILAT ~ Reason for exam: screening, asymptomatic. Z12.31-Encounter for screening mammogram for malignant neoplasm of mrkxrd-ZRV-18-CM ~ MM MAMMO DIGITAL BONY SCREEN BILAT Bilateral CC and MLO view(s) were taken. Technologist: RT Chase There are scattered fibroglandular densities. Prior study comparison: Compared with prior studies the most recent being 03/05/22, 02/09/21 No mammographic evidence of malignancy. ~ Procedure Note Wong Benson MD - 05/16/2023 Procedure:MM MAMMO DIGITAL BONY SCREEN BILAT ~ Reason for exam: screening, asymptomatic. Z12.31-Encounter for screening mammogram for malignant neoplasm of ympzqx-CMH-54-CM ~ MM MAMMO DIGITAL BONY SCREEN BILAT Bilateral CC and MLO view(s) were taken. Technologist: RT Chase There are scattered fibroglandular densities. Prior study comparison: Compared with prior studies the most recentbeing 03/05/22, 02/09/21 No mammographic evidence of malignancy. ~ IMPRESSION: Negative (ONR-Bttjdsli-9) ~ RECOMMENDATION: Routine screening mammogram in 1 [...] the next mammogram, in accordance with the [place] [employer] and the Society of Breast Imaging recommendations. R Evangelista Infante [facility] MAMMOGRAPHY ORDERABLES Jill alfaro Result * (ABNORMAL) CELL COUNT AND DIFFERENTIAL, [...] STOOL Fi nal Result Performing Organization Address [facility] Co de Phone Number QUEST [facility] [address] [place] [address] * CULTURE, ANAEROBIC BACTERIA WITH GRAM STAIN-QUEST (11/26/2022 11:54 AM EST) Bacteria Identified [facility] SEE NOTE [facility] Comment: CULTURE, ANAEROBIC BACTERIA W/GRAM STAIN Micro Number: [id number] Test Status: Final Specimen Source: R knee fluid Specimen Quality: Adequate Gram Stain: No organisms seen Result: No anaerobes isolated. 11/21/2022 9:0 8 AM EST Narrative QUEST - 11/26/2022 11:54 AM EST FASTING: UNKNOWN Michaela Palacio MD QUEST-MICROBIOLOGY ORDERABLES Final Result Performing Organization Address [facility] Co de Phone Number QUEST [facility] [address] [place] [address] * CULTURE, AEROBIC BACTERIA-QUEST (11/26/2022 11:54 AM EST) Aerobic Bacterial Culture SEE NOTE [facility] Comment: CULTURE, AEROBIC BACTERIA Micro Number: [id number] Test Status: Final Specimen Source: R knee fluid Specimen Quality: Adequate Result: No Growth NO COLLECTION DATE RECEIVED. WE HAVE USED THE DATE THE SPECIMEN WAS RECEIVED BY THIS LABORATORY THE COLLECTION DATE. IF THIS IS INCORRECT, PLEASE CONTACT CLIENT SERVICES. PHONE NUMBER: [phone] 11/21/2022 9:0 8 AM EST Narrative QUEST - 11/26/2022 11:54 AM EST FASTING: UNKNOWN us Michaela Palacio MD QUEST-MICROBIOLOGY ORDERABLES Final Result Performing Organization Address City/State/ZIP [facility] Phone Number WILBUR Pang [address] [facility] [place] [address] * TEST IN QUESTION - MISC. QUESTION (11/26/2022 11:54 AM EST) Service Comment Ques remi Pang Comment: There is a question regarding the following specimen submitted and/or the test requested. QUESTION: VERIFY CARLOS NEED [id number] Wilbur Pang Resolution: Wilbur Pang Comment: COMMENTS Wilbur Pang Comment: REQUESTED INFORMATION AUTHORIZED SIGNATURE TO PREVENT FURTHER DELAYS IN TESTING, PLEASE COMPLETE INFORMATION ABOVE AND FAX TO [phone] TO RESOLVE THIS ORDER. 11/21/2022 9:0 8 AM EST Narrative QUEST - 11/26/2022 11:54 AM EST FASTING: UNKNOWN Michaela Palacio MD QUEST TEST IN QUESTION CODES F inal Result QUEST [facility] [address] [place] [address] * CRYSTALS, SYNOVIAL FLUID-QUEST (11/26/2022 11:54 AM EST) Specimen Source R KNEE FLUID [facility] Crystals, Synovial Fluid NONE SEEN /HPF [facility] Comment:No crystals found 11/21/2022 9:0 8 AM EST Narrative QUEST - 11/26/2022 11:54 AM EST FASTING: UNKNOWN Michaela Palacio MD QUEST-BODY FLUIDS AND STOOL Fi nal Result Performing Organization Address [facility] Co de Phone Number QUEST [facility] [address] [place] [address] * CARCINOEMBRYONIC ANTIGEN (09/10/2022 2:41 PM EDT) Only the most recent of4 resultswithin the time period is included. CEA 1.21 ng/mL 09/10/2022 10:10 PM EDT [facility] Comment: Non-Smokers: <= 5.0 ng/mL Smokers: <= 10.0 ng/mL [facility] uses the [employer] CEA assay, which is intended to be [...] 2:41 PM EDT 09/10/2022 2:41 PM EDT Rashad Timmons PA-C CHEMISTRY ORDERABLES Final R esult [facility] [address] [facility], [place] [address] * [facility] LOWER EXTREMITY VENOUS RIGHT (08/17/2021 12:09 [...] noted in the contralateral left commonfemoral vein. Result [facility] Judy Gallego APRN IMG VASCULAR ORDERABLES Final Result * GMED COLONOSCOPY (08/14/2021 11:00 AM EDT) 08/14/2021 11:0 0 AM EDT Impressions [facility] - 08/14/2021 10:57 AM EDT Polyps (3 mm to 4 mm) in the descending colon. (Polypectomy). Previous Surgery in the colon. Plan: Colonoscopy in 3 years. This section is an excerpt of the full report. Dennis Mak MD GI PROCEDURE ORDERABLES Fin al Result [facility] [address] [place] [address] * PATHOLOGY TISSUE REQUEST (08/14/2021 11:00 AM EDT) Only the most recent of3 resultswithin the time period is included. CASE REPORT Surgical Pathology Case: [id number] Authorizing Provider: Dennis Mak MD Collected: 08/14/2021 1100 Ordering Location: [facility] Received: 08/14/2021 1544 Pathologist: Manuel rBito MD Specimen: Large Intestine, Left/Descending Colon 08/15/2021 [...] 08/14/2021 3:52 PM 08/15/2021 11:55 AM EDT [facility] MICROSCOPIC DESCRIPTION Microscopic examination is performed and the findings corroborate the diagnosis. 08/15/2021 11:55 AM EDT [facility] EMBEDDED IMAGES 08/15/2021 11:55 AM EDT [facility] Tissue DESCENDING COLON STRUCTURE / Unknown 08/14/2021 11:00 AM EDT 08/14/2021 3:44 PM EDT Dennis Mak MD PATHOLOGY ORDERABLES Final Result [facility] [address] [place], [place] [id number] [facility] [address] [place] [address] * CORONAVIRUS 2019 (08/11/2021 2:06 PM EDT) Only the most recent of2 resultswithin the time period is included. CORONAVIRUS [id number] Not Detected Not Detected 08/12/2021 1:19 PM EDT [facility] Comment: Caution should be exercised when interpreting [...] of COVID-19. Test is performed on the I AM AT platform under the FDA's Emergency Use Authorization (EUA). [employer] Provider Fact Sheet: https://www.Metconnex.gov/media/715091/download [employer] Patient Fact Sheet: https://www.fda.gov/media/607921/download Performed at [facility] [address] [place] [address] CLIA [id number] Swab BOTH ANTERIOR NARES / Unknown 08/11/2021 2:06 PM EDT 08/11/2021 2:06 PM EDT Dennis Mak MD MICROBIOLOGY - GENERAL [facility] Final Result [facility] [employer] [facility] [address] [facility], [place] [address] * XR HAND LEFT PA LATERAL AND [...] 3:58 PM CLINICAL HISTORY: M79.642-Pain in left zbxr-YVF-16-CM COMPARISON: None. PROCEDURE COMMENTS: XR HAND LEFT [...] 3:58 PM CLINICAL HISTORY: M79.642-Pain in left bxqi-EDR-35-CM COMPARISON: None. PROCEDURE COMMENTS: XR HAND LEFT [...] office of the ordering clinician. Judy Gallego APRN IMG DIAGNOSTIC IMAGING ORDERAB LES Final Result * MM MAMMO DIGITAL BONY DIAGN BILAT (02/09/2021 11:13 AM EDT) Only the most recent of2 resultswithin the time period is included. Anatomical Region Laterality Modality Breast Bilateral Mammography 02/09/2021 11:2 9 AM EDT Impressions 02/09/2021 11:29 AM EDT Negative (XNO-Pmzakwmn-1) ~ RECOMMENDATION: Routine screening mammogram in 1 [...] the next mammogram, in accordance with the [place] [employer] and the Society of Breast Imaging recommendations. Narrative 02/09/2021 11:29 AM EDT Procedure:MM MAMMO DIGITAL BONY DIAGN BILAT ~ Reason for exam: clinical finding. N64.89-Other specified disorders of tqbujs-BMS-19-CM. Follow-up asymmetric right breast density. No current clinical complaints. ~ MM MAMMO DIGITAL BONY DIAGN BILAT Bilateral CC and MLO view(s) were taken. Technologist: RT Shirley There are scattered fibroglandular densities. Prior study comparison: Compared with prior studies the most recent being 09/04/19, 05/16/16 , 05/12/2015. Stable asymmetric lateral right breast density. Stable left breast exam. No dominant mass/architectural distortion or suspicious calcifications. ~ Procedure Note Demetrio Horowitz, DO - 02/09/2021 Procedure:MM MAMMO DIGITAL BONY DIAGN BILAT ~ Reason for exam: clinical finding. N64.89-Other specified disorders of sfoccc-TTE-88-CM. Follow-upasymmetric right breast density. No current clinical complaints. ~ MM MAMMO DIGITAL BONY DIAGN BILAT Bilateral CC and MLO view(s) were taken. Technologist: RT Shirley There are scattered fibroglandular densities. Prior study comparison: Compared with prior studies the most recentbeing 09/04/19, 05/16/16 , 05/12/2015. Stable asymmetric lateral right breast density. Stable left breast exam.No dominant mass/architectural distortion or suspicious calcifications. ~ IMPRESSION: Negative (PAD-Kgokpilj-4) ~ RECOMMENDATION: Routine screening mammogram in 1 [...] the next mammogram, in accordance with the [place] [employer] and the Society of Breast Imaging recommendations. us Cristi Sosa MD IMG MAMMOGRAPHY ORDERABLES F inal Result * EXTRA HERNANDEZ URINE CX (07/28/2020 10:07 AM EDT) Urine 07/28/2020 10:0 7 AM EDT 07/28/2020 10:07 AM EDT us Rashad Timmons PA-C MICROBIOLOGY - GENERAL [place] [address] * (ABNORMAL) URINALYSIS (07/28/2020 10:07 AM EDT) UA Color Yellow 07/28/2020 3:23 PM EDT [facility] UA Appear Cloudy(A) Clear 07/28/2020 3:23 PM EDT [facility] UA Glucose Negative Negative mg/dL 07/28/2020 [...] 7 AM EDT 07/28/2020 10:07 AM EDT Rashad Timmons PA-C URINE ORDERABLES Final Resul t Performing Organization Address [facility] de Phone Number [facility] [employer] [facility] [address] , [place] [address] * URINE CULTURE (NO STAIN) (07/28/2020 10:07 AM EDT) Culture No growth at 30 hours. 07/30/2020 10:27 AM EDT [employer] Urine 07/28/2020 10:0 7 AM EDT 07/28/2020 3:23 PM EDT Rashad Timmons PA-C MICROBIOLOGY - GENERAL ORDER XAVIER Final Result Performing Organization Address [facility] de Phone Number [facility] [facility] [address] [facility] [address] , [place] [address] * MAGNESIUM LEVEL (06/21/2020 10:39 AM EDT) Magnesium 2.1 1.6 - 2.4 mg/dL 06/21/2020 11:23 AM EDT [employer] [facility] Blood VENOUS BLOOD / Unknown Venipuncture / Unknown 06/21/2020 10:39 AM EDT 06/21/2020 10:39 AM EDT Gonzalez Vargas MD CHEMISTRY ORDERABLES Final R esult Performing Organization Address [facility] de Phone Number [facility] [facility] [address] [facility] [address] , [place] [address] * (ABNORMAL) COMPREHENSIVE METABOLIC PANEL (06/21/2020 10:39 AM EDT) Only the most recent of2 resultswithin the time period is included. Sodium 142 136 - 145 mmol/L 06/21/2020 11:34 AM EDT [employer] [facility] Potassium 4.5 3.5 - 5.0 mmol/L 06/21/2020 11:34 AM EDT [facility] Chloride 101 98 - 107 mmol/L 06/21/2020 11:34 AM EDT [facility] Total CO2 29 22 - 29 mmol/L 06/21/2020 11:34 AM EDT [facility] Anion Gap 12 7 - 16 mmol/L 06/21/2020 11:34 AM EDT [facility] Calcium 10.0 8.8 - 10.4 mg/dL 06/21/2020 11:34 AM EDT [facility] Glucose Lvl 101(H) 82 - 100 mg/dL 06/21/2020 11:34 AM EDT [facility] BUN 14 8 - 23 mg/dL 06/21/2020 11:34 AM EDT [facility] Creatinine 0.66 0.51 - 1.30 mg/dL 06/21/2020 11:34 AM EDT [facility] Albumin 4.0 3.2 - 4.6 gm/dL 06/21/2020 11:34 AM EDT [facility] Total Protein 7.1 6.4 - 8.3 gm/dL 06/21/2020 11:34 AM EDT [facility] Bili Total 0.2 0.1 - 1.3 mg/dL 06/21/2020 11:34 AM EDT [facility] ALT 5 <=41 U/L 06/21/2020 11:34 AM EDT [facility] AST 12 <=40 U/L 06/21/2020 11:34 AM EDT [facility] Alk Phos 65 36 - 123 U/L 06/21/2020 11:34 AM EDT [facility] GFR Afr Am 107 >=60 mL/min/1.7 3 m2 06/21/2020 11:34 AM EDT [facility] GFR Non Afr Am 93 >=60 mL/min/1.7 3 m2 06/21/2020 11:34 AM EDT [facility] Comment: This estimated GFR [...] 10:39 AM EDT 06/21/2020 10:39 AM EDT us Gonzalez Vargas MD CHEMISTRY ORDERABLES Final R esult Performing Organization Address [facility] Co de Phone Number [facility] [employer] [address] [facility], [address] [place] [phone] [facility] [address] [place] [address] * SCANNED RHYTHM STRIPS (06/06/2020 11:09 AM EDT) Anatomical Region Laterality Modality Other 06/06/2020 11:0 9 AM EDT us Unknown Unknown IMG ECG ORDERABLES Final Result * SCANNED EKG (06/06/2020 11:08 AM EDT) Anatomical Region Laterality Modality Other 06/06/2020 11:0 8 AM EDT us Unknown Unknown IMG ECG ORDERABLES Final Result * ECG AND WAVEFORMS - TELEMETRY (06/04/2020 7:32 AM EDT) Only the most recent of2 resultswithin the time period is included. ECG INTERPRET NSR [facility] 06/04/2020 7:32 AM EDT Narrative [facility] - 06/04/2020 8:50 AM EDT NAIF AICU/ROUTINE CA 0.12 QRS 0.10 RR 0.72 QT 0.42 See Clinical Report link for waveform capture us Unknown Provider POINT OF CARE CARDIOLOGY Final Result Performing Organization Address [facility] Co de Phone Number [facility] [address] [place] [address] * EK EKG 12 LEAD (06/03/2020 2:24 PM EDT) Only the most recent of4 resultswithin the time period is included. Anatomical Region Laterality Modality Electrocardiogra phy 06/03/2020 3:02 PM EDT Impressions 06/03/2020 3:[address] 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 : 1955 Requested By: RASHAD TIMMONS Order Number: [id number] Reading MD: Arcadio Rooney MD Measurements Intervals [place] Rate: 91 P: 59 CA: 134 QRS: 42 QRSD: 100 T: 41 QT: 349 QTc: 430 Interpretive Statements SINUS RHYTHM WITH OCCASIONAL ECTOPIC PREMATURE COMPLEXES NONSPECIFIC ST & T-WAVE ABNORMALITY Electronically Signed On 06-03-2020 15:35:59 EDT by Arcadio Rooney MD us Rashad Timmons PA-C IMG ECG ORDERABLES Final Res ult * Peripheral Block by Anesthesia (06/02/2020 2:25 PM EDT) Narrative [facility] - 06/02/2020 2:25 PM EDT Warren Hernandez MD 06/02/2020 2:26 PM Peripheral Block by Anesthesia Procedure Date/Time: 06/02/2020 2:14 PM Patient location during procedure: pre-op Reason for block: at surgeon's request and post-op pain management Staff and Pre-procedure checks Anesthesiologist: Warrne Hernandez MD Performed: anesthesiologist Preanesthetic Checklist: Allergies [...] Hernandez MD ANESTHESIA ORDERABLES Final Res ult [address] [address] * NEOGENOMICS MISMATCH REPAIR (MMR) IHC PANEL [...] MLH1 in formalin-fixed paraffin-embedded tissue sections. A polymerInventys Thermal Technologies based system was used for detection. MLH1 (Disclaimer) = MMR references ranges are based on [employer]` internal validation, and we recommend cases with equivocal staining be confirmed with microsatellite instability (MSI) testing. MLH1 (Control Statement) = The digitized slide(s) was/were adequate for quantitative image analysis. All controls were reviewed and showed appropriate positive and negative immunoreactivity. MLH1 (Image Analysis Statement) = Whole slide image capture was performed with the A[employer]io ScanScope and quantitative computer-assisted image analysis using [employer] software. MSH2 (Intended Use) = Mismatch repair [...] MSH2 in formalin-fixed paraffin-embedded tissue sections. A polymerInventys Thermal Technologies based system was used for detection. MSH6 [...] MSH6 in formalin-fixed paraffin-embedded tissue sections. A [employer]In[employer] Thermal Technologies based system was used for detection. PMS2 [...] PMS2 in formalin-fixed paraffin-embedded tissue sections. A [employer] based system was used for detection. [facility] 06/02/2020 1:51 PM EDT Narrative [facility] - 06/13/2020 1:22 PM EDT Requesting Provider: Gonzalez Hollingsworth Specimen = [id number] us Manuel Brito MD PATHOLOGY ORDERABLES Final Res ult [facility] [address] [place] [address] * INTRAOP AIRWAY PLACEMENT (06/02/2020 8:44 AM EDT) Narrative [facility] - 06/02/2020 8:44 AM EDT Annalise [...] Unchanged Insertion attempts: 1 Attempt 1 by: KASIE RRNA Title: RNSA Kayode To MD [place] ANESTHESIA Edited Result - Final Performing Organization Address [facility] [place] [address] * BB HISTORY CHECK (05/20/2020 12:22 PM EDT) Only the most recent of2 resultswithin the time period is included. BB HISTORY CHECK (1) Previous History OK 05/20/2020 12:53 PM EDT [facility] BLOOD BANK Blood VENOUS BLOOD / Unknown Venipuncture / Unknown 05/20/2020 12:22 PM EDT 05/20/2020 12:33 PM EDT Gaby Garcia APRN BLOOD BANK ORDERABLES Final R esult Performing Organization Address [facility] de Phone Number [facility] [place] [address] * SURGERY DATE (05/20/2020 12:22 PM EDT) Only the most recent of2 resultswithin the time period is included. Surgery Date (1) Complete 05/20/2020 12:54 PM EDT [facility] BLOOD BANK Blood VENOUS BLOOD / Unknown Venipuncture / Unknown 05/20/2020 12:22 PM EDT 05/20/2020 12:33 PM EDT Gaby Garcia [employer] BLOOD BANK ORDERABLES Final R esult Performing Organization Address [facility] Co de Phone Number [facility] BLOOD [facility] [address] [place] [address] * ABORH (05/20/2020 12:22 PM EDT) Only the most recent of2 resultswithin the time period is included. ABORH Int A POS 05/20/2020 1:2 0 PM EDT [facility] BLOOD [facility] Blood VENOUS BLOOD / Unknown Venipuncture / Unknown 05/20/2020 12:22 PM EDT 05/20/2020 12:33 PM EDT Gaby Garcia [facility] BLOOD BANK ORDERABLES Final R esult Performing Organization Address City/[facility]/ZIP Co de Phone Number [address] [address] * ANTIBODY SCREEN IGG (05/20/2020 12:22 PM EDT) Only the most recent of2 resultswithin the time period is included. 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 gciuubez-DZF-12-CM COMPARISON: Prior PET and CT PROCEDURE COMMENTS: [...] GLUCOSE METER POC (04/28/2020 8:34 AM EDT) [facility] Glucose Meter POC 96 70 - 100 mg/dL 04/28/2020 8:35 AM EDT [facility] Sample Type Capillary 04/28/2020 8:35 AM EDT [facility] Patient Status Non-Critical Patient 04/28/2020 8:35 AM EDT [facility] Blood BLOOD SPECIMEN / Unknown 04/28/2020 8:34 AM EDT 04/28/2020 8:35 AM EDT Rashad Timmons PA-C POINT OF CARE TEST ORDERABLE S Final Result Performing Organization Address [facility] Co de Phone Number [facility] [address] [place] [address] * GMED EGD-COLONOSCOPY (04/15/2020 10:20 AM EDT) 04/15/2020 10:2 0 AM EDT Impressions [facility] - 04/15/2020 11:24 AM EDT Plan: CT scan chest/abdomen/pelvis with contrast Colonoscopy in 1 year. This section is an excerpt of the full report. Dennis Mak MD GI PROCEDURE ORDERABLES Fin al Result Performing Organization Address [facility]/ZIP Co de Phone Number [facility] [address] [place] [address] * CORONAVIRUS 2019 (COVID-19) - REF LAB (04/12/2020 11:25 AM EDT) CORONAVIRUS [id number] Not Detected 04/14/2020 11:25 AM EDT Aras Comment: INTERPRETIVE INFORMATION: SARS-CoV-2 (COVID-19) by ROSA [...] In compliance with this authorization, please visit [email or web address] for more information and to access the applicable information sheets. If the result is Not Detected, this does not rule out the presence of PCR inhibitors in the patient specimen or assay specific nucleic acid in concentrations below the level of detection by the assay. Performed by [facility], [address], [place] [id number] [email or web address], Craig Machuca MD, Lab. Director Coronavirus LAUREN Source Nasopharyngeal 04/14/2020 11:25 AM EDT Aras Swab NASOPHARYNGEAL STRUCTURE / Unknown 04/12/2020 11:25 AM EDT 04/12/2020 11:25 AM EDT us Dennis Mak MD LAB SEND OUT ORDERABLES Fin al Result [facility] [address] [place], [place] [id number] * MRI KNEE LEFT WO CONTRAST (12/02/2019 [...] CONTRAST, 12/02/2019. CLINICAL HISTORY: M25.562-Pain in left dlft-OQB-52-CM COMPARISON: None. TECHNIQUE: Multiplanar, multisequence MR images [...] CONTRAST, 12/02/2019. CLINICAL HISTORY: M25.562-Pain in left alwg-PXE-09-CM COMPARISON: None. TECHNIQUE: Multiplanar, multisequence MR images [...] tricompartmental osteoarthrosis. us Ming Santamaria MD [facility] MRI ORDERABLES Final Res ult * MRI [...] CONTRAST, 12/02/2019. CLINICAL HISTORY: M25.511-Pain in right oinpjhqg-COO-70-CM COMPARISON: None. TECHNIQUE: Multiplanar, multisequence MR images [...] CONTRAST, 12/02/2019. CLINICAL HISTORY: M25.511-Pain in right wcmpnsbr-EZL-82-CM COMPARISON: None. TECHNIQUE: Multiplanar, multisequence MR images [...] Mild glenohumeral synovitis and subacromial/subdeltoid bursitis. - Ming Santamaria MD [facility] MRI ORDERABLES Final Res ult * MRI [...] CONTRAST, 12/02/2019. CLINICAL HISTORY: M25.512-Pain in left gmlwchfl-BNZ-79-CM COMPARISON: None. TECHNIQUE: Multiplanar, multisequence MR images [...] CONTRAST, 12/02/2019. CLINICAL HISTORY: M25.512-Pain in left kocyfztl-VBM-48-CM COMPARISON: None. TECHNIQUE: Multiplanar, multisequence MR images [...] downsloping. There is mild subacromial/subdeltoid bursitis. - Ming Santamaria MD [facility] MRI ORDERABLES Final Res ult * RETICULOCYTE PANEL DIAGNOSTIC (09/28/2019 3:36 PM EST) Retic Cnt Auto 1.0 0.9 - 2.5 % 09/28/2019 4:08 PM EST [facility] Retic # 40.8 40.0 - 110.0 x10(3)/mcL 09/28/2019 4:08 PM EST [facility] [place] Imm. Retic Fraction % 8.5 3.1 - 17.6 % 09/28/2019 4:08 PM EST [facility] [place] Retic Hgb 36.8 23.0 - 38.0 pg 09/28/2019 4:08 PM EST [facility] Blood VENOUS BLOOD / Unknown Venipuncture / Unknown 09/28/2019 3:36 PM EST 09/28/2019 3:36 PM EST Narrative [facility] - 09/28/2019 4:08 PM EST Reticulocyte hemoglobin [...] the youngest reticulocytes having the highest content. (1)Randal Y., et al. 2017. Int J Hematol 106:116-125. (2)Aaliyah Kidd., et al. 2017. Nutrients 9:450. (3)Nicola Montgomery., et al. 2014. Am J Clin Pathol 142:506-512. (4)Stephani Lan, et al. 2010. Blood 116:4589-8625. us Dennis Mak MD HEMATOLOGY ORDERABLES Final Result Performing Organization Address [facility] de Phone Number [facility], [address] , [place] [phone] * (ABNORMAL) IRON/UIBC (09/28/2019 3:36 PM EST) Pathologist [facility] Iron 40 30 - 160 mcg/dL 09/28/2019 4:40 PM EST [facility] UIBC 265 112 - 347 mcg/dL 09/28/2019 4:40 PM EST [facility] Transferrin Sat 13(L) 20 - 50 % 9 4:40 PM EST [facility] [place] Blood Venipuncture / Unknown 09/28/2019 3:36 PM EST 09/28/2019 3:36 PM EST us Dennis Mak MD CHEMISTRY ORDERABLES Final Result Performing Organization Address [facility] Phone Number [facility], [address] , [place] [phone] * (ABNORMAL) CBC (09/28/2019 3:36 PM EST) [...] 09/28/2019 4:08 PM EST [facility] MCH 28.8 26.0 - 34.0 pg 09/28/2019 4:08 PM EST [facility] MCHC 31.7 30.7 - 35.5 g/dL 09/28/2019 4:08 PM EST [facility] RDW 15.7(H) <=14.9 % 09/28/2019 4:08 PM EST [facility] Platelet 372(H) 155 - 369 x10(3)/mcL 09/28/2019 4:08 PM EST [facility] MPV 9.9 8.8 - 12.5 fL 09/28/2019 4:08 PM EST [facility] Blood VENOUS BLOOD / Unknown Venipuncture / Unknown 09/28/2019 3:36 PM EST 09/28/2019 3:36 PM EST Dennis Mak MD HEMATOLOGY ORDERABLES Final Result Performing Organization Address City/[facility]/ZIP Co de Phone Number [facility], [facility] [address] [facility] [facility] [address] , [place] [address] * FERRITIN (09/28/2019 3:36 PM EST) Ferritin 25 13 - 150 ng/mL 09/28/2019 4:39 PM EST [facility] Blood Venipuncture / Unknown 09/28/2019 3:36 PM EST 09/28/2019 3:36 PM EST Narrative [facility] [employer] [facility] - 09/28/2019 4:39 PM EST Ingestion of del doses of biotin (>5 mg/day) taken within 8 hours of drawing blood sample can interfere with this immunoassay test. us Dennis Mak MD CHEMISTRY ORDERABLES Final Result Performing Organization Address City/[facility]/ZIP Co de Phone Number [facility], [facility] [address] [address] , [place] [address] * MM US BREAST LIMITED RIGHT (09/11/2019 1:02 PM EDT) Anatomical Region Laterality Modality Breast Right Ultrasound 09/11/2019 2:42 PM EDT Impressions 09/11/2019 2:42 PM EDT Benign finding (HXA-Jkldkwqq-1) ~ RECOMMENDATION: Follow-up diagnostic mammogram of both [...] N63.10-Unspecified lump in the right breast, unspecified rofzlzij-VUB-58-CM ~ MM US BREAST LIMITED RIGHT Standard [...] mass. N63.10-Unspecified lump in the right breast, njsgegifkjisxgpmvre-MST-54-CM ~ MM US BREAST LIMITED RIGHT Standard [...] shadowing or distortion. ~ IMPRESSION: Benign finding (AKR-Jgtwuemw-5) ~ RECOMMENDATION: Follow-up diagnostic mammogram of both [...] for the next mammogram. Cristi Sosa MD IM MAMMOGRAPHY ORDERABLES F inal Result * CLIENT RELATIONSHIP CONSULTANT CYTOLOGY REQUEST (PAP ONLY) (09/03/2019 11:09 AM EDT) CASE REPORT Gynecologic Cytology Report Case: [id number] Authorizing Provider: Cristi Sosa MD Collected: 09/03/2019 1109 Ordering Location: [facility] Received: 09/03/2019 1109 First Screen: Kenny Turner CT Specimen: LIQUID-BASED PAP - CERVICAL/ENDOCERV ICAL, Cervix, Endocervical 09/04/2019 10:[facility] FINAL DIAGNOSIS Negative for intraepithelial lesion or malignancy 09/04/2019 10:37 AM PSYCHIATRIC at 1037 EDT MICROSCOPIC DESCRIPTION Microscopic examination is performed and the findings corroborate the diagnosis. [facility]2019 [facility]QUACY Satisfactory for evaluation 09/04/2019 10:37 AM EDT [facility] ENDOCERVICAL T-ZONE Transformation zone present 09/04/2019 10:[facility] E[facility]DED IMAGES 9 10:37 [facility] PAP DISCLAIMER The Pap Smear is a screening test that aids in the detection of cervical cancer and cancer precursors. Both false positive and false negative results can occur. The test should be used at regular intervals, and positive results should be confirmed before definitive therapy. Processed using the Tasted MenuPrep Profile Shaper Operator Automated cytology screening device (Lockitron). 09/04/2019 10:37 AM EDT [facility] Thin Prep ENDOCERVICAL STRUCTURE / Unknown 09/03/2019 11:09 AM EDT 09/03/2019 11:09 AM EDT us Cristi Sosa MD CYTOLOGY ORDERABLES Final Re sult Performing Organization Address [facility] Co de Phone Number [facility] [address] [place] [address] * XR FOOT LEFT AP LATERAL AND [...] changes, no fracture dislocation us Jose Guardado DPMacie IMG DIAGNOSTIC IMAGING ORDNicola [facility] Final Result * (ABNORMAL) HEMOGLOBIN AND HEMATOCRIT (05/20/2019 7:29 AM EDT) Hgb 9.8(L) 11.2 - 15.7 g/dL 05/20/2019 7:57 AM EDT [facility] Hct 30.3(L) 34.0 - 45.0 % 05/20/2019 7:57 AM EDT [facility] Blood Venipuncture / Unknown 05/20/2019 7:29 AM EDT 05/20/2019 7:35 AM EDT us Prakash Viramontes MD HEMATOLOGY ORDERABLES Final Result Performing Organization Address City/[facility]/ZIP Co de Phone Number [facility] [address] [facility], [address] [place] [phone] * XR PELVIS (05/19/2019 1:39 PM EDT) [...] fracture or dislocation. Prakash Viramontes MD [facility] DIAGNOSTIC IMAGING ORDER XAVIER Final Result * FL < 1 HOUR (05/19/2019 1:02 PM EDT) Narrative PACS - 05/19/2019 2:30 PM EDT Fluoroscopy was performed. The radiologist was not in attendance. No permanent images were obtained. This dictation is being made for record keeping purposes. Prakash Viramontes MD [facility] FLUOROSCOPY ORDERABLES F inal Result PACS * [...] IMPRESSION: Satisfactory intraoperative imaging. - - Prakash T Ana M MD IMG DIAGNOSTIC IMAGING ORDER XAVIER Final Result * INTRAOP AIRWAY PLACEMENT (05/19/2019 12:09 PM EDT) Narrative [facility] - 05/19/2019 12:09 PM EDT Eliseo [...] motion Condition: Atraumatic Insertion attempts: 1 Title: FABRIC CUTTER Procedure Note Eliseo Aguayo CRNA - 05/19/2019 [...] motion Condition: Atraumatic Insertion attempts: 1 Title: FABRIC CUTTER us Eliseo Aguayo FABRIC CUTTER [place] ANESTHESIA Final Re sult [facility] [address] [place] [address] * Peripheral Block by Anesthesia (05/19/2019 11:30 AM EDT) Narrative [facility] - 05/19/2019 11:30 AM EDT Esther [...] surrounding nerve by ultrasonographc visualization Additional Notes sanchez well Procedure Note Esther Zarate MD - [...] surrounding nerve by ultrasonographc visualization Additional Notes sanchez well us Esther Zarate MD ANESTHESIA ORDERABLES Fin al Result Performing Organization Address [facility] Co de Phone Number [facility] [address] [place] [address] * (ABNORMAL) VITAMIN B12/ FOLIC ACID (05/07/2019 12:11 PM EDT) Vitamin B12 312 211 - 946 pg/mL 05/07/2019 1:48 PM EDT [facility] Folate >16.00(H) 4.50 - 16.00 ng/mL 05/07/2019 1:48 PM EDT [employer] Blood Venipuncture / Unknown 05/07/2019 12:11 PM EDT 05/07/2019 12:11 PM EDT Narrative [employer] - 05/07/2019 1:48 PM EDT Ingestion of del doses of biotin (>5 mg/day) taken within 8 hours of drawing blood sample can interfere with this immunoassay test. us Vikas Burnham MD CHEMISTRY ORDERABLES Final Resul t Performing Organization Address [facility] Co de Phone Number [employer] [address] , [place] [address] * TSH REFLEX (05/07/2019 12:11 PM EDT) TSH Reflex 0.963 0.270 - 4.200 mcIU/mL 05/07/2019 1:32 PM EDT [employer] Blood Venipuncture / Unknown 05/07/2019 12:11 PM EDT 05/07/2019 12:11 PM EDT Narrative [employer] - 05/07/2019 1:32 PM EDT Ingestion of del doses of biotin (>5 mg/day) taken within 8 hours of drawing blood sample can interfere with this immunoassay test. us Vikas Burnham MD CHEMISTRY ORDERABLES Final Resul t Performing Organization Address City/[facility]/ZIP Co de Phone Number [employer] [address], [place] [address] * PT / INR (05/07/2019 12:05 PM EDT) PT 10.7 9.7 - 12.5 second(s) 05/07/2019 1:08 PM EDT [facility] INR 0.95 0.86 - 1.10 no units 05/07/2019 1:08 PM EDT [facility] Comment: Level of Therapy Indications Target INR Range Standard Dose Treatment and prophylaxis of venous 2.0 - 3.0 thrombosis, pulmonary embolism High Dose High risk patients with mechanical 2.5 - 3.5 heart valves Blood VENOUS BLOOD / Unknown Venipuncture / Unknown 05/07/2019 12:05 PM EDT 05/07/2019 12:05 PM EDT us Prakash Viramontes MD HEMATOLOGY ORDERABLES Final Result Performing Organization Address City/State/[facility] Co de Phone Number [facility] , [place] [address] * MRI PELVIS WO CONTRAST (01/28/2019 1:36 [...] CONTRAST, 01/28/2019. CLINICAL HISTORY: M25.551-Pain in right rfh-BIZ-80-CM M25.552-Pain in left vzx-LEP-56-CM COMPARISON: MRI left hip 07/03/2012. TECHNIQUE: Multiplanar, [...] CONTRAST, 01/28/2019. CLINICAL HISTORY: M25.551-Pain in right jwt-XYJ-19-CM M25.552-Pain in left wxe-QOJ-76-CM COMPARISON: MRI left hip 07/03/2012. TECHNIQUE: Multiplanar, [...] fascia and tendon at neck level, initial bbqlwiecq-MWJ-94-CM S29.019A-Strain of muscle and tendon of unspecified wall of thorax, initial hrjdrmssz-RIP-74-CM S39.012A-Strain of muscle, fascia and tendon of lower back, initial khiakpjti-XBW-72-CM COMPARISON: None PROCEDURE COMMENTS: Multiplanar multiecho MR [...] muscle, fascia and tendon at necklevel, initial yahocxwll-JOD-56-CM S29.019A-Strain of muscle and tendon of unspecified wall of thorax,initial pdofxfiot-KZL-33-CM S39.012A-Strain of muscle, fascia and tendon of lower back, initial rcedkqvem-ULL-61-CM COMPARISON: None PROCEDURE COMMENTS: Multiplanar multiecho MR [...] fascia and tendon at neck level, initial xosteefzm-KEE-99-CM S29.019A-Strain of muscle and tendon of unspecified wall of thorax, initial ppdgtyjyc-ZWE-93-CM S39.012A-Strain of muscle, fascia and tendon of lower back, initial skypvhclx-WGZ-04-CM COMPARISON: None. PROCEDURE COMMENTS: Multiplanar multiecho MR [...] muscle, fascia and tendon at necklevel, initial ezdfgofmj-BWZ-29-CM S29.019A-Strain of muscle and tendon of unspecified wall of thorax,initial tcunpjgre-GXI-22-CM S39.012A-Strain of muscle, fascia and tendon of lower back, initial rhuwnuvjy-LBY-57-CM COMPARISON: None. PROCEDURE COMMENTS: Multiplanar multiecho MR imaging of the thoracicspine. Sagittal imaging of the entire thoracic spine with selected axial imaging. FINDINGS: Moderate dextroscoliosis noted. No subluxation detected. No fractureidentified. No bone marrow edema or suspicious bony lesions detected. Degenerativechange of intervertebral discs noted with multilevel disc space narrowingdesiccation and disc bulge or shallow protrusions noted most prominent at T9-10 hpxK86-83. But these disc protrusions are mild. No [...] fascia and tendon at neck level, initial ijiwobqrs-DBN-04-CM S29.019A-Strain of muscle and tendon of unspecified wall of thorax, initial eqbthrjvf-RXJ-56-CM S39.012A-Strain of muscle, fascia and tendon of lower back, initial opmjeusgh-MLA-73-CM COMPARISON: MR cervical spine June 14, 2015 [...] muscle, fasciaand tendon at neck level, initial aqcsmwncf-CVC-75-CM S29.019A-Strain of muscle and tendon of unspecified wall of thorax,initial lacesyalc-HVD-77-CM S39.012A-Strain of muscle, fascia and tendon of lower back, initial onhnyovbp-WQM-11-CM COMPARISON: MR cervical spine June 14, 2015 [...] Moderate to marked left and moderate right B8tlxcnuios narrowing representing potential mechanisms of nerve root impingement.Mild central stenosis. Similar findings on prior. C5/C6: Broad-based discogenic disease with associated this marginspurring and mild indentation of the subarachnoid space. Mild to moderate left F6tkunmfecq narrowing. C6/C7: Mild discogenic disease with associated [...] by level discussion. us Ming Santamaria MD IMG MRI ORDERABLES Final Res ult * NM BONE SCAN WHOLE BODY (09/18/2018 3:23 PM EST) Anatomical Region Laterality Modality Nuclear Medicine 09/18/2018 3:23 PM EST Impressions 09/18/2018 4:32 PM EST 1. Multifocal axial and appendicular degenerative changes. Narrative 09/18/2018 4:32 PM EST WHOLE BODY BONE SCAN, 09/18/2018 3:23 PM CLINICAL HISTORY: M54.5-Low back ncce-QHW-84-CM COMPARISON: 2 view chest October 30, 2016 PROCEDURE COMMENTS: 20.2 mCi of Ae13q-XQZ. Whole body bone scanning per protocol. FINDINGS: [...] 09/18/2018 3:23 PM CLINICAL HISTORY: M54.5-Low back wfrr-GPG-22-CM COMPARISON: 2 view chest October 30, 2016 PROCEDURE COMMENTS: 20.2 mCi of Gp25t-AYL. Whole body bone scanningper protocol. FINDINGS: There is multifocal abnormal uptake in the spine, including posteriorelements in the upper and mid thoracic spine as well as upper lumbar spine. Theseare likely degenerative. There is additional degenerative change at the left hip, rightsternoclavicular joint, both knees, and both feet. IMPRESSION: 1. Multifocal axial and appendicular degenerative changes. Ming Santamaria MD [facility] NM ORDERABLES Final Resu lt * CT HEAD WO CONTRAST (09/18/2018 12:49 PM EST) Anatomical Region Laterality Modality Head Computed Tomogra phy 09/18/2018 12:4 9 PM EST Impressions 09/18/2018 1:09 PM EST No acute intracranial abnormality. Narrative 09/18/2018 1:[address] HEAD WO CONTRAST 09/18/2018 12:49 PM CLINICAL HISTORY: S09.90XS-Unspecified injury of head, vbznxzx-LUY-49-CM COMPARISON: None. PROCEDURE COMMENTS: Routine noncontrast head [...] 12:49 PM CLINICAL HISTORY: S09.90XS-Unspecified injury of head,kjcwmte-JFX-59-CM COMPARISON: None. PROCEDURE COMMENTS: Routine noncontrast head CT with multiplanar reconstructions. FINDINGS: No evidence of acute stroke, mass, or hemorrhage. No fracture orextra-axial collection. Ventricular size and sulcal pattern is within normal limitsfor age. Included portions of the paranasal sinuses, mastoids, and orbitsunremarkable. IMPRESSION: No acute intracranial abnormality. Ming Santamaria MD [facility] CT ORDERABLES Final Resu lt * XR [...] 10/30/2016 11:37 AM History: 61 years .Female. K49-Sufqh-BDL-27-KG. Compare: February 13, 2006 Procedure Note Javed Fu MD - 10/30/2016 XR CHEST PA AND LATERAL 10/30/2016 11:37 AM History: 61 years .Female. [id number]. Compare: February 13, 2006 IMPRESSION: Tortuous thoracic aorta. Moderate degenerative changes thoracic spine. No radiographic evidence of acute cardiac or pulmonary diseaseprocess. Judy Boone Gallego UPTWIST SPINNER IMG DIAGNOSTIC IMAGING ORDERAB LES Final Result * PULMONARY FUNCTION TEST (10/30/2016 10:41 AM EST) 10/30/2016 10:4 1 AM EST Impressions [facility] - 10/30/2016 10:41 AM EST Good patient effort and understanding. Acceptable results and reproducibility. NORMAL PFTs. Clinical Correlation is Required. This data was interpreted based upon the 2005 ATS/ERS Task Force Position Statement: Interpretative Strategies for Lung Function Tests. This section is an excerpt of the full report. Benita Infante PFT ORDERABLES Final Result Performing Organization Address City/State/[facility] Co de Phone Number [facility] [address] [place] [address] * MM MAMMO DIGITAL SCREENING W CAD BILAT (05/16/2016 3:48 PM EDT) Only the most recent of4 resultswithin the time period is included. Anatomical Region Laterality Modality Breast Bilateral Mammography 05/17/2016 12:3 5 PM EDT Impressions 05/17/2016 1:30 PM EDT : Negative ([id number]-8) ~ RECOMMENDATION: Routine screening mammogram in 1 [...] the most recent studies of 05-12-15. ~ us Benita Infante IMG MAMMOGRAPHY ORDERABLES Jill l Result * [...] symptoms, please consider MRI imaging. Judy Gallego UPTWIST SPINNER IMG DIAGNOSTIC IMAGING ORDERAB LES Final Result * SCANNED HOLTER MONITOR (03/17/2015 12:24 PM EDT) Anatomical Region Laterality Modality Other 03/17/2015 12:2 4 PM EDT us Unknown Unknown IMG HOLTER MONITOR ORDERABLES Fi nal Result * HM HOLTER MONITOR RECORDING AND ANALYSIS (03/05/2015 9:27 AM EDT) Anatomical Region Laterality Modality Holter/Event Mon itoring Impressions 03/19/2015 11:59 AM EDT : Tracings show Sinus Rhythm 78-125 average 94. PVC's 39066. No VT. PAC's 12. No SVT. Narrative 03/19/2015 11:59 AM EDT INDICATIONS: Chest Pain LENGTH OF TAPE 23 HRS 59 MINS MEDICATION: None listed SLOWEST RATE 76 FASTEST RATE 125 AVERAGE RATE 94 TOTAL PVC'S 83512 TOTAL PAC'S 12 VENTRICULAR TACHYCARDIA SUPRAVENTRICULAR TACHYCARDIA Number of episodes 0 Number of episodes 0 Longest run Beats Longest run Beats Fastest rate Fastest rate OTHER ARRHYTHMIAS: See below. ST & T WAVE CHANGES: See below. SYMPTOMS: See below Benita [place] IMG HOLTER MONITOR ORDERABLES F inal Result [...] no significant reversible defects. Javed Curtis MD [facility] CARDIAC ORDERABLES Final Result * ST STRESS TEST LEXISCAN (11/29/2014 12:01 PM EST) Anatomical Region Laterality Modality Cardiac Stress T esting 11/29/2014 11:3 0 AM EST Impressions 12/02/2014 12:45 PM EST Exercise ECG Report [facility] Interpretive Statements Stress Test Lexiscan Reason for [...] MD - 12/02/2014 IMPRESSION Exercise ECG Report [facility] Interpretive Statements Stress Test Lexiscan Reason for [...] esophageal dilation. Fluoroscopy time: 1.2 minutes FINDINGS: Telemetry Technician film unremarkable. Esophagus normal in appearance. Normal esophageal motility. No esophageal mass or stricture. No hiatal hernia. No gastroesophageal reflux was seen. Procedure Note Kenny Welch MD - 09/02/2013 Esophagram, 09/02/2013 HISTORY: Chest pain, status post recent endoscopy with esophagealdilation. Fluoroscopy time: 1.2 minutes FINDINGS: Telemetry Technician film unremarkable. Esophagus normal in appearance. Normalesophageal motility. No esophageal mass or stricture. No hiatal hernia. No gastroesophagealreflux was seen. IMPRESSION: Normal esophagram. us Dennis Mak MD IMG FLUOROSCOPY ORDERABLES Final [...] AM EDT) 08/12/2013 7:30 AM EDT Impressions [facility] - 08/12/2013 7:47 AM EDT Normal stomach. Normal duodenum. Normal mucosa in the whole esophagus. (Dilation). Plan: Follow-up as needed This section is an excerpt of the full report, which can be found by clicking the hyperlink. Dennis Mak MD GI PROCEDURE ORDERABLES Fin al Result Performing Organization Address City/State/[facility] Co de Phone Number [facility] [address] [place] [address] * [facility] (08/12/2013 12:00 AM EDT) CPT Code(s) [facility] Comment: [id number], [id number] [facility] assumes no responsibility for the accuracy of CPT codes provided which are for informational purposes only. CPT codes are payor specific and CPT coding is the sole responsibility of the billing entity. 08/12/2013 08/12/2013 11: 40 PM EDT Narrative [facility] - 08/13/2013 4:26 PM EDT FASTING: UNKNOWN Resulting Agency Comment Performing Organization Information: Site ID: Name: [facility] Address: [address] [place] [phone] Director: Gerhard Hayes MD PhD Dennis BOWLES-HEMATOLOGY ORDERABLES Final Result [address] [address] * TISSUE PATHOLOGY-[facility] (08/12/2013 12:00 AM EDT) [...] in cassette A. Gross exam(s) performed at: [email or web address] [address] [id number] Press Technician: GERHARD HAYES MD PHD Specimen A Diagnosis [facility] Comment: - Benign hyperplastic polyps. [id number] Specimen B Clinical Impression Polyp in the [...] [facility] Comment: - Tubular adenoma. [id number] 08/12/2013 08/12/2013 11: 40 PM EDT Narrative [facility] - 08/13/2013 4:26 PM EDT FASTING: UNKNOWN Resulting Agency Comment Performing Organization Information: Site ID: [id number] Name: [facility] Address: [address] [place] [address], [place] [address] Director: Neal Isabel MD us Dennis Mak MD [facility] ORDERABLES Final Result Performing Organization Address City/[facility]/ZIP Co de Phone Number [facility] [address] [place] [address] [place] [address], [facility] * GMED COLONOSCOPY (08/12/2013 12:00 AM EDT) 08/12/2013 Impressions [facility] - 08/12/2013 7:44 AM EDT Polyps (3 mm to 4 mm) in the transverse colon. (Polypectomy). Polyp (3 mm) in the sigmoid colon. (Polypectomy). Grade 1 internal hemorrhoids. Plan: Colonoscopy in 5 years. This section is an excerpt of the full report, which can be found by clicking the hyperlink. us Dennis Mak MD GI PROCEDURE ORDERABLES Fin al Result [facility] [address] [place] [address] * DIFFERENTIAL (08/11/2013 9:50 AM EDT) Neut Percent 46.7 % [facility] Lymph Percent 42.7 % [facility] [place] Percent 7.2 % [facility] Eos Percent 3.1 % [facility] Baso Percent 0.3 % [facility] Neut# 2.4 1.8 - 7.7 x10(3)/mcL [facility] Lymph# 2.2 0.6 - 4.8 x10(3)/mcL [facility] [place]# 0.4 0.0 - 1.3 x10(3)/mcL [facility] Eos# 0.2 0.0 - 0.5 x10(3)/mcL [facility] Baso# 0.0 0.0 - 0.2 x10(3)/mcL [facility] Blood specimen (specimen) 08/11/2013 9:50 AM EDT 08/11/2013 8:52 PM EDT us Moustapha Renee Shaffer DPM HEMATOLOGY ORDERABLES Final R esult [facility] [address] [place] [address] * MM MOBILE MAMMO DIGITAL SCREEN W CAD TRAMAINE (07/16/2012 1:11 PM EDT) Anatomical Region Laterality Modality Breast Mammography 07/18/2012 10:5 3 AM EDT Impressions 07/18/2012 1:41 PM EDT : No radiographic evidence of malignancy (TOP-Vwflabph-8) ~ RECOMMENDATION: Routine screening mammogram in 1 [...] ~ IMPRESSION: No radiographic evidence of malignancy (XCM-Kzguaing-7) ~ RECOMMENDATION: Routine screening mammogram in 1 [...] was reviewed by a Radiologist and CAD. Benita Evangelista Infante IM MAMMOGRAPHY ORDERABLES Jill dominic Result * MRI HIP LEFT WO CONTRAST [...] disease about the left hip. There is ssno-ho-whhv articulation with cortical remodeling. There is collapse [...] degenerative disease about the lefthip. There is erih-mq-uzwi articulation with cortical remodeling. There is collapse [...] views. IMPRESSION- No radiographic evidence of malignancy (YEZ-Gfoachyw-2) RECOMMENDATION- Routine screening mammogram in 1 year. * The patient with a palpable abnormality, unexplained by breast imaging, should be managed on clinical basis by the attending physician. * Breast imaging has a false negative rate of 15%. * The patient was notified by mail of the results of this examination. 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itesDenzel Garcia Physician- ERNST WATSON MD Released Date Time- 07/06/09 1134 Procedure Note Ernst Watson - 01/19/2010 Procedure-MM DIGITAL DIAG UNILAT MM DIGITAL DIAG UNILAT CC and MLO view(s) were taken of the left breast. No abnormality is seen on additional views. IMPRESSION- No radiographic evidence of malignancy (OQS-Ripmnpbc-4) RECOMMENDATION- Routine screening mammogram in 1 year. * The patient with a palpable abnormality, unexplained by breast imaging, should be managed on clinical basis by the attending physician. * Breast imaging has a false negative rate of 15%. * The patient was notified by mail of the results of this examination. 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itespepe Garcia Physician- ERNST WATSON MD Released Date Time- 07/06/09 1134 [facility]ita [facility] HISTORICAL Fin al Result * MM DIG SCR TRAMAINE [...] dated 03-23-08 IMPRESSION- Incomplete-need additional imaging evaluation (HLG-Rbgubvct-6) RECOMMENDATION- Special view mammogram of the left breast. * The patient with a palpable abnormality, unexplained by breast imaging, should be managed on clinical basis by the attending physician. * Breast imaging has a false negative rate of 15%. * The patient was notified by mail of the results of this examination. The mammogram was reviewed by a Radiologist and CAD. 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- RODRÍGUEZ GIBBS Reading Physician- RAJ ZHANG MD Released Date Time- [...] dated 03-23-08 IMPRESSION- Incomplete-need additional imaging evaluation (MRO-Cggcjoks-7) RECOMMENDATION- Special view mammogram of the left breast. * The patient with a palpable abnormality, unexplained by breast imaging, should be managed on clinical basis by the attending physician. * Breast imaging has a false negative rate of 15%. * The patient was notified by mail of the results of this examination. The mammogram was reviewed by a Radiologist and CAD. 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- RODRÍGUEZ GIBBS Reading Physician- RAJ ZHANG MD Released Date Time- 07/01/09 1140 [facility] Evangelista Infante [facility] Result * MR LUMBAR SPINE W/O KA [...] due to spur projecting from the facet. 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- RADHA SWANSON Reading Physician- ILANA SHI MD [...] due to spur projecting from the facet. 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- RADHA Garcia Physician- ILANA SHI MD Released Date Time- 04/19/09 1928 Michaela Palacio MD [facility] HISTORICAL nal Result * EK EKG REG (11/27/2008 2:26 PM EST) Anatomical Region Laterality Modality Other 11/27/2008 2:26 PM EST Narrative 11/28/2008 11:16 AM EST Sinus rhythm with PVC(s) Anterior T wave changes are nonspecific Borderline ECG No previous records available at this time Clinical correlation is recommended. 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- FRANKLIN Garcia Physician- FRANKLIN GARCIA M.D. Released Date Time- 11/28/08 1116 Procedure Note Franklin Garcia - 01/19/2010 Sinus rhythm with PVC(s) Anterior T wave changes are nonspecific Borderline ECG No previous records available at this time Clinical correlation is recommended. 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- FRANKLIN GARCIA M.D. Reading Physician- FRANKLIN GARCIA M.D. Released Date Time- 11/28/08 1116 Eliseo Martel MD [facility] CARD HISTORICAL Final Result * XR FOOT & TOES (06/29/2008 3:01 PM EDT) Anatomical Region Laterality Modality Other 06/29/2008 3:01 PM EDT Narrative 06/29/2008 7:17 PM EDT Right foot and toes, 06/29/2008- Indication- Pain. Three views right foot and toes show midfoot degenerative change, hallux valgus, bunion formation, and hallux MTP degenerative change. No acute fracture. 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- ERICA Garcia Physician- CONNOR PAYTON MD Released Date Time- 06/29/082025 Procedure Note Connor Payton - 01/19/2010 Right foot and toes, 06/29/2008- Indication- Pain. Three views right foot and toes show midfoot degenerative change, hallux valgus, bunion formation, and hallux MTP degenerative change. No acute fracture. 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- ERICA Garcia Physician- CONNOR PAYTON MD Released Date Time- 06/29/082025 [facility] Evangelista Infante [facility] al Result * XR WRIST (11/05/2006 10:00 AM EST) Anatomical Region Laterality Modality Other 11/05/2006 10:0 0 AM EST Narrative 11/05/2006 11:05 AM EST FOUR VIEWS OF RIGHT WRIST - 11/05/06 History- Pain in the scaphoid region. No injury. There is no evidence of fracture or dislocation. No significant arthritic process is seen. 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- RACHID Garcia Radiologist- CHANA JASSO MD Released Date Time- 11/05/061308 Procedure Note Chana Jasso - 01/18/2010 FOUR VIEWS OF RIGHT WRIST - 11/05/06 History- Pain in the scaphoid region. No injury. There is no evidence of fracture or dislocation. No significant arthritic process is seen. 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- RACHID Garcia Radiologist- CHANA JASSO MD Released Date Time- 11/05/061308 [facility] Fin al Result * FL STOMACH/ESOPHAGUS BOX PRINTING MACHINE OPERATOR (10/18/2006 8:00 AM EST) Anatomical Region Laterality Modality Other 10/18/2006 8:00 AM EST Narrative 10/18/2006 9:36 AM EST WAITING RM Upper GI series on 10/18/2006. 1. History- [...] other abnormality in the upper gastroenteric tract. 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- LYDIA FREGOSO Reading Radiologist- KAREN REYES MD Released Date Time- 10/18/06 1502 Procedure Note Karen Reyes - 01/18/2010 WAITING RM Upper GI series on 10/18/2006. 1. History- [...] other abnormality in the upper gastroenteric tract. 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- LYDIA Garcia Radiologist- KAREN REYES MD Released Date Time- 10/18/06 1502 R Evangelista Inf[facility]OR[facility] Fin al Result * MM [...] compared with prior studies. IMPRESSION- Benign finding (PZT-Zkwzznfo-8) RECOMMENDATION- Routine screening mammogram in 1 year. * The patient with a palpable abnormality, unexplained by breast imaging, should be managed on clinical basis by the attending physician. * Breast imaging has a false negative rate of 15%. * The patient was notified by mail of the results of this examination. The mammogram was reviewed by a Radiologist and CAD. 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- RALPH Garcia Radiologist- JONATHAN BANSAL MD Released [...] compared with prior studies. IMPRESSION- Benign finding (SEY-Wulxpzqf-9) RECOMMENDATION- Routine screening mammogram in 1 year. * The patient with a palpable abnormality, unexplained by breast imaging, should be managed on clinical basis by the attending physician. * Breast imaging has a false negative rate of 15%. * The patient was notified by mail of the results of this examination. The mammogram was reviewed by a Radiologist and CAD. 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- RALPH AHUJA Reading Radiologist- JONATHAN BANSAL MD Released Date Time- 09/03/06 1422 [facility] Evangelista Infante [facility] RAD HISTORICAL Fin al Result * XR [...] dorsal spine. Impression- No acute cardiopulmonary disease. 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- RADHA SWANSON Reading Radiologist- MAURICE NOONAN MD Released Date Time- 02/13/061653 Procedure Note Maurice Noonan - 01/17/2010 PA [...] dorsal spine. Impression- No acute cardiopulmonary disease. 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[employer]- RADHA SWANSON Reading Radiologist- MAURICE NOONAN MD Released Date Time- 02/13/061653 Michaela Palacio MD [facility] nal Result Visit Diagnoses Diagnosis Start Date [...] specified disorders of liver 06/02/2020 Care Teams Gandy Dancer Relationship Specialty Start Date End Date Benita Infante [address] [facility] [place] [address] PCP - General 07/10/10 Dennis Mak MD [address] [facility] [address] [place] [address] Internal Medicine-Gastroenterology 07/14/13 Michaela Palacio MD [address] [place] [phone] Internal Medicine-Rheumatology 02/20/23
--- OUTSIDE RECORDS SUMMARY | 2025-07-27 14:07 | XMS_ITS | Referral Summary ---
Author Organization [facility] Address [address] [place], [place] [address] [place] [address] Care Team Providers Care Hydraulic Blocker Name Role Phone Unavailable Primary Care Provider [...]
[2025-07-27 14:42] LABS: Hematocrit 37.8 % (37.0-47.0); Hemoglobin 12.3 g/dL (12.2-16.2); Immature Granulocytes % 0.2 %; Mean Corpuscular HGB Conc 32.5 g/dL (31.8-35.4); Mean Corpuscular Hemoglobin 32.4 pg (27.0-31.2); Mean Corpuscular Volume 99.5 fl (81-99); Nucleated Red Blood Cells % 0 %; Platelet Count 307 K/mm3 (142-424); Red Blood Count 3.80 M/mm3 (4.20-5.40); Red Cell Distribution Width-SD 45.7 fL; White Blood Count 6.6 K/mm3 (4.8-10.8)
[2025-07-27 16:02] LABS: Alanine Aminotransferase 17 U/L (12-78); Albumin Level 4.1 g/dl (3.5-5.0); Albumin/Globulin Ratio 1.4 (1.1-1.8); Alkaline Phosphatase 75 U/L (38-126); Anion Gap 12.5 mEq/L (5-15); Aspartate Amino Transferase 30 U/L (14-36); Bilirubin,Total 0.3 mg/dl (0.2-1.3); Blood Urea Nitrogen 20 mg/dl (7-17); Calcium 9.4 mg/dl (8.4-10.2); Carbon Dioxide 28 mmol/L (22.0-30.0); Chloride 102 mmol/L (98-107); Creatinine,Serum 0.80 mg/dl (0.52-1.04); Estimated Glomerular Filt Rate 71 ml/min (>60); GFR (African American) 86 ML/MIN (>60); Globulin 2.9 g/dL (1.3-3.2); Glucose 120 mg/dl (74-100); Potassium 3.5 mmoL/L (3.5-5.1); Sodium 139 mmol/L (136-145); Total Protein,Serum 7.0 g/dl (6.3-8.2); Uric Acid 3.3 mg/dl (2.5-6.2)
[2025-07-27 16:23] LABS: C-Reactive Protein 1.5 mg/L (0-4)
[2025-07-27 16:49] LABS: Vitamin B12 962 pg/mL (239-931)
[2025-07-29 10:14] LABS: RA Latex Turbid. 11.1 IU/mL (<14.0)
== END 2025-07-27 23:59 | disposition home or self-care (01) ==
LOC: LAB 14:03
PROVIDERS: PCP Family Medicine; Visit Provider Podiatrist
DX: Z13.828 Encounter for screening for other musculoskeletal disorder (principal); E55.9 Vitamin D deficiency, unspecified; G62.9 Polyneuropathy, unspecified; E66.811 Obesity, class 1; Z85.038 Personal history of other malignant neoplasm of large intestine; M15.0 Primary generalized (osteo)arthritis
CPT/HCPCS: 36415; 80053; 82607; 82652; 84550; 85025; 85651; 86038; 86140; 86431

== ENCOUNTER 2025-08-25 10:51 | Day surgery (SDC) | payer MEDICARE, MEDICAID, SELFPAY ==
[2025-08-18 11:21] VITALS: BMI 31.8
--- NOTE | 2025-08-19 06:52 | EXP.HP ---
History of Present Illness *Admission Date: 08/25/25 *History of present illness: Mrs. Thompson is a 70-year-old female who is here for screening/surveillance colonoscopy. She recently had a colonoscopy (05/07/2025) with Henry Reilly MD. She does have a history of colon cancer diagnosed in 2019 and had low anterior resection at a hospital in [facility]. Her recent colonoscopy showed several polyps and one of the ascending polyps was raised submucosally with Eleview with polypectomy performed with the 13 mm hot snare. There were 2 additional polyps in the ascending and a polyp in the cecum. There were 3 adenomatous polyps in the descending colon removed via cold snare polypectomy. At approximately 40 cm from the anal verge there was an irregular appearing lesion with some contracture and scarring and it was unclear whether this was postsurgical or polypoid mass lesion. Eleview was also injected here and multiple biopsies were obtained. The area was marked with Loreta ink. The report states complex polyps and patient was referred for possible flexible sigmoidoscopy. The patient does state that both of her maternal grandparents had colon cancer. She does state that she was having regular colonoscopies even before the colon cancer in 2019. [facility] Disclaimer: The information contained in this section may have been updated after the patient was seen, as this information can be updated by other users. Medical History Decreased pedal pulses Screening for rheumatoid arthritis Deformity of right foot Right foot pain Left foot pain Bunion of left foot History of COVID-19 Allergies Rectal cancer IBS (irritable bowel syndrome) Colon cancer Migraine Hypertension Surgical History History of colonoscopy History of hand surgery History of tubal ligation History of hip replacement TRAMAINE History of colon resection Family History Other Cancer Diabetes Social History Smoking Status: Never smoker alcohol intake: never substance use type: denies use current occupational status: retired Travel in the last 8 weeks?: None marital status: caffeine: No Have you lived/traveled outside US in past 30 days?: No Contact w/someone who lives/traveled outside US past 30 days?: No Exposure to someone with infectious disease in past 14 days?: No Do you have a fever (greater than 100.4 F or 38 C)?: No Have you tested positive for COVID-19?: No Exposed to someone with COVID-19 in past 14 days?: No Do you have a sore throat?: No Do you have a cough?: No Do you have any weakness?: No Do you have any diarrhea?: No Are you experiencing any unusual bleeding?: No Do you have any muscle aches/pain?: No Do you have any abdominal pain?: No Are you experiencing loss of taste or smell?: No Other Medical History Have you received the Pneumonia Vaccine: No Meds Home Medications and Allergies Home Medications ?Medication ?Instructions ?Recorded ?Confirmed ?Type amlodipine 10 mg tablet 10 mg PO DAILY BP 09/13/22 08/25/25 History dicyclomine 10 mg capsule 10 mg PO QID . 09/13/22 08/25/25 History lisinopril 20 mg tablet 10 mg PO DAILY BP 09/13/22 08/25/25 History potassium chloride 20 mEq/15 mL 20 meq PO DAILY Supplement 09/13/22 08/25/25 History oral liquid tramadol 50 mg tablet 40 mg PO DAILY PRN . 03/11/23 08/25/25 History multivitamin 300 cap PO DAILY 05/07/25 08/25/25 History omeprazole 20 mg capsule,delayed 20 mg PO NEEDED PRN reflux 05/13/25 08/25/25 History release tofacitinib 11 mg tablet,extended 11 mg PO DAILY 05/13/25 08/25/25 History release 24 hr (Xeljanz XR) cholecalciferol (vitamin D3) 25 25 mcg PO DAILY 06/22/25 08/25/25 History mcg (1,000 unit) capsule ferrous sulfate 325 mg (65 mg 325 mg PO DAILY 06/22/25 08/25/25 History iron) tablet folic acid 800 mcg tablet 0.8 mg PO DAILY 06/22/25 08/25/25 History mecobalamin (vitamin B12) 1,000 1,000 mcg PO DAILY 06/22/25 08/25/25 History mcg chewable tablet sodium,potassium,mag sulfates 17.5 See Rx Instructions PO .COMPLEX 08/13/25 08/25/25 Rx gram-3.13 gram-1.6 gram oral soln #354 mL (Suprep Bowel Prep Kit) New Prescriptions to Start Prescriptions: Allergies Allergy/AdvReac Type Severity Reaction Status Date / Time morphine AdvReac Chest Pain Verified 08/03/25 14:13 Exam Data for Last 24 hours I & O for Last 24 hours: Intake & Output 08/16/25 08/17/25 08/18/25 08/19/25 23:59 23:59 23:59 23:59 Weight 174 lb *Routine HEENT Exam Head: Present normocephalic Eye: Present EOMI and PERRL ENT: Present mucous membranes moist *Routine Neck Exam Neck: Present supple *Routine Respiratory Exam Respiratory: Present CTA bilaterally *Routine Cardiovascular Exam Cardiovascular: Present RRR *Routine Abdominal Exam Abdominal: Present soft and normoactive bowel sounds; Absent tenderness *Routine Rectal Exam Rectal:: deferred *Routine Genitalia Exam Genitalia:: deferred *Routine Extremities Exam Extremities: Absent cyanosis, clubbing or edema *Routine Skin Exam Skin: Present warm; Absent rash *Routine Neurological Exam Neurological: Present alert and oriented X3 Assessment and Plan *Assessment and plan (1) Personal history of colon cancer: Status: Acute Category: Medical Code(s): Z85.038 - Personal history of other malignant neoplasm of large intestine (2) Family history of colon cancer: Status: Acute Category: Medical Code(s): Z80.0 - Family history of malignant neoplasm of digestive organs (3) Serrated adenoma of colon: Status: Acute Category: Medical Code(s): D12.6 - Benign neoplasm of colon, unspecified (4) Personal history of adenomatous and serrated colon polyps: Status: Acute Category: Medical Code(s): Z86.0101 - Personal history of adenomatous and serrated colon polyps Plan A/P: 1. Personal and family history of colon cancer and personal history of adenomatous and advanced adenomatous colon polyps is the preprocedural diagnosis. The patient will be anesthetized/sedated using MAC sedation. The patient has been seen and examined. Cardiac and lung assessment prior to the examination is stable. Proceed with planned screening/surveillance colonoscopy.
--- NOTE | 2025-08-25 07:07 | HMH.PROCNOTE ---
[facility] Procedure Note Date: 08/25/25 Time: 12:43 Procedure Note:: Colonoscopy Procedure Report: Colonoscopy with cold snare polypectomy and soft coagulation Endoscopist: Emigdio Calderon II, MD Referring physician: Evangelista Infante MD Date of Procedure: August 25, 2025 Equipment: Olympus [id number] adult colonoscope Sedation: MAC sedation Indication: Mrs. Thompson is a 70-year-old female who is here for screening/surveillance colonoscopy. She recently had a colonoscopy (05/07/2025) with Henry Reilly MD. She does have a history of colon cancer diagnosed in 2019 and had low anterior resection at a hospital in [facility]. Her recent colonoscopy showed several polyps and one of the ascending polyps was raised submucosally with Eleview with polypectomy performed with the 13 mm hot snare. There were 2 additional polyps in the ascending and a polyp in the cecum. There were 3 adenomatous polyps in the descending colon removed via cold snare polypectomy. At approximately 40 cm from the anal verge there was an irregular appearing lesion with some contracture and scarring and it was unclear whether this was postsurgical or polypoid mass lesion. Eleview was also injected here and multiple biopsies were obtained. The area was marked with Loreta ink. The report states complex polyps and patient was referred for possible flexible sigmoidoscopy. The patient does state that both of her maternal grandparents had colon cancer. She does state that she was having regular colonoscopies even before the colon cancer in 2019. Procedure: Prior to the procedure, a history and physical exam was performed, and patient's medications and allergies were reviewed. The risks, benefits and alternatives of the sedation and procedure were discussed with the patient. All questions were answered and informed consent was obtained. The patient was brought to the procedure room. Patient identification and proposed procedure were verified by the physician and the nurse. The patient was placed in a left lateral decubitus position and the scope was passed under direct vision. Throughout the procedure, the patient's blood pressure, pulse, and oxygen saturations were monitored continuously. The colonoscopy was accomplished without difficulty. The patient tolerated the procedure well. Findings: On digital rectal examination there was normal rectal tone. There were no external hemorrhoids. The colonoscope was introduced through the anal canal to the rectum and advanced to the cecum. The ileocecal valve and appendiceal orifice were identified. The scope was advanced a short distance into the ileum which appeared grossly normal. The scope was then withdrawn into the colon. There were 3 diminutive polyps (cecum x 1 (5 mm periappendiceal), transverse x 1 (4 mm) and sigmoid x 1 (3 mm)). These were all removed via cold snare polypectomy. There was Loreta ink tattoo in the descending colon with a larger 22 mm very flat advanced adenoma (laterally spreading granular adenoma). Because there was adjacent tattoo, lifting the polyp would not help because of submucosal fibrosis. This polyp was evaluated using NBI (narrowband imaging) and there was no dysplasia identified. There was no depression. Next, the cold snare was utilized to resect this polyp completely using cold snare and 3 piecemeal resections. The polypectomy site was examined carefully and there was no remaining adenomatous appearing tissue. Next, soft coagulation was applied to the margins of the polypectomy as well as the polypectomy base. The remainder of the colonic mucosa was otherwise normal. Upon retroflexion within the rectum there were grade 1-2 internal hemorrhoids. The preparation was excellent throughout with [place] Preparation Score of 9. The cecal time was 17 minutes. Impression: 1. Descending polyp (22 mm advanced adenoma on haustral fold) status post removal and application of soft coagulation 2. 3 additional diminutive colon polyps Plan: I will discuss the findings with the patient and family. I will follow-up the polyp histology/pathology and I would recommend 1 year repeat colonoscopy.
[2025-08-25 11:11] VITALS: BP 139/95; PULSE 85; RESP 18; TEMP 36.7; O2SAT 97
[2025-08-25] MEDS: LACTATED RINGERS 1000ML 1,000 ML 50 ML IV (11:29)
--- NOTE | 2025-08-25 12:15 | EXP.ANES.CKL ---
[facility] Disclaimer: The information contained in this section may have been updated after the patient was seen, as this information can be updated by other users. Medical History Decreased pedal pulses Screening for rheumatoid arthritis Deformity of right foot Right foot pain Left foot pain Bunion of left foot History of COVID-19 Allergies Rectal cancer IBS (irritable bowel syndrome) Colon cancer Migraine Hypertension Surgical History History of colonoscopy History of hand surgery History of tubal ligation History of hip replacement TRAMAINE History of colon resection Family History Other Cancer Diabetes Social History Smoking Status: Never smoker alcohol intake: never substance use type: denies use current occupational status: retired Travel in the last 8 weeks?: None marital status: caffeine: No Have you lived/traveled outside US in past 30 days?: No Contact w/someone who lives/traveled outside US past 30 days?: No Exposure to someone with infectious disease in past 14 days?: No Do you have a fever (greater than 100.4 F or 38 C)?: No Have you tested positive for COVID-19?: No Exposed to someone with COVID-19 in past 14 days?: No Do you have a sore throat?: No Do you have a cough?: No Do you have any weakness?: No Do you have any diarrhea?: No Are you experiencing any unusual bleeding?: No Do you have any muscle aches/pain?: No Do you have any abdominal pain?: No Are you experiencing loss of taste or smell?: No [place] Anesthesia Checklist Patient Identification Patient Identification: Arm Band and Verbal (Name & ) Structural Data Admitted From: Home Planned Operative Procedure/s: Colonoscopy Consent for Planned Operative Procedure(s) Verified: Yes Verified Documents: Surgical Consent NPO Status Verified Time NPO: 00:00 Chart Verification Results Verified: None Additional verifications Anesthesia Reactions: No Airway Assessment Mallampati Score:: Class II C-Spine Mobility Assessed: Yes TMJ Mobility Assessed: Yes Dentition: Good Dentition Neurological Assessment Level of Consciousness: Awake, Alert and Appropriate Hx Seizures: No Numbness or tingling in extremities: No Anesthesia Plan Anesthesia Risk discussed: Yes Anesthesia Plan: Verified ASA Class: II Anesthesia Type: MAC
[2025-08-25 12:46] VITALS: BP 114/70; PULSE 71; RESP 16; TEMP 36.1; O2SAT 95
[2025-08-25 12:56] VITALS: BP 123/83; PULSE 79; RESP 18; TEMP 36.1; O2SAT 96
[2025-08-25 13:06] VITALS: BP 114/71; PULSE 68; RESP 16; TEMP 36.1; O2SAT 97
[2025-08-25 13:16] VITALS: BP 132/75; PULSE 65; RESP 16; TEMP 36.1; O2SAT 97
== END 2025-08-25 13:16 | disposition home or self-care (01) ==
PROVIDERS: PCP Family Medicine; Visit Provider Internal Medicine Gastroenterology
PROC: 0DJD8ZZ Inspection of Lower Intestinal Tract, Via Natural or Artificial Opening Endoscopic (ICD-10-PCS; CPT 45378; principal; 2025-08-25 12:30)
DX: Z12.11 Encounter for screening for malignant neoplasm of colon (principal); D12.0 Benign neoplasm of cecum; D12.3 Benign neoplasm of transverse colon; D12.4 Benign neoplasm of descending colon; D12.5 Benign neoplasm of sigmoid colon; K64.0 First degree hemorrhoids; K64.1 Second degree hemorrhoids; I10 Essential (primary) hypertension; Z86.0101 Personal history of adenomatous and serrated colon polyps; Z85.038 Personal history of other malignant neoplasm of large intestine; Z80.0 Family history of malignant neoplasm of digestive organs
CPT/HCPCS: 45385; 88305; J2003; J2704; J7120

== ENCOUNTER 2025-09-21 09:54 | Outpatient (CLI) | payer MEDICARE, MEDICAID, SELFPAY ==
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
--- OUTSIDE RECORDS SUMMARY | 2025-04-02 07:20 | XMS_ITS ---
[facility] Organization [facility] Address [address] [facility] [address] [id number] Care Team Providers Care Commercial Illustrator Name Role Phone Benita Infante Primary Care Provider Judit Chong Unavailable [phone] Results Component Value Reference Range Notes P-Potassium Reviewed date:04/07/2025 04:09:45 PM Interpretation:3.8 Performing Lab: Notes/Report: Test performed by [facility] [address] [place] [address] , [place] [address] Bran Underwood MD, N[employer] CLIA: [id number] Potassium 3.8 3.5-5.3 mmol/L REASON FOR VISIT blood work Encounters Encounter Location Date Provider Diagnosis Michelle [address] [facility] [address] [place] [id number] 04/02/2025 Judit Chong Essential hypertensi on I10 Assessments Encounter Date Diagnosis (ICD Code) Assessment Notes Treatment Notes Treatment Clinical Notes Section Notes 04/02/2025 Essential hypertension (ICD-10 - I10) Plan Of Treatment No Information Progress Notes * CAITLIN NAQVIOB:1955 ( 70 yo F)Acc No.[id number]:04/02/2025 Patient: PATRICIA MAYA Provider: PATIENCE Joiner :1955 A ge:70 Y S ex:Female Date:04/02/2025 Address:[address] [place], [place] [id number] Pcp:Benita Infante Subjective: * Chief Complaints: * 1 . Blood work. * Medical History: Objective: * Vitals: Assessment: * Assessment: 1. E ssential hypertension - I10 Plan: * Treatment: Value Reference Range P otassium 3.8 3.5-5.3 - mmol/L * Judit Chong 04/07/2025 0 4:09:39 PM >discussed with patient * Images: Billing Information: * Visit Code: * Procedure Codes: * Electronic signature of PATIENCE Pederson on 09/21/2025 at 10:00 AM EST Sign off status: Pending * Provider: PATIENCE Joiner Date: 0 04/02/2025 Generated for Destini yang/Irene/Tigist on: 1 11/21/2024 10:00 AM EST
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
--- OUTSIDE RECORDS SUMMARY | 2025-04-09 07:30 | XMS_ITS ---
Author Organization [facility] Address [address] [id number] Care Team Providers Care Construction Project Mgr Name Role Phone Benita Infante Primary Care Provider FrantzJudit candelaria Unavailable [phone] Results Component Value Reference Range Notes CBC Venipuncture (in house) Reviewed date:04/23/2025 12:11:04 PM Interpretation:Normal Performing Lab: Notes/Report: Normal wbc 8.0 3.5 - 10 lymph 22.0% 15 - 50 mid 5.5% 2 - 15 gran 72.5% 35 - 80 rbc 4.01 3.5 - 5.5 hgb 12.7 11.5 - 16.5 hct 39.0 35 - 55 mcv 97.1 75 - 100 mch 31.7 25 - 35 mchc 32.6 31 - 38 platlet 376 100 - 400 P-Vitamin B12 Reviewed date:04/23/2025 12:11:04 PM Interpretation:1355 Performing Lab: Notes/Report: Test performed by [facility] [address] [place], [place] [address] [address] , [address], [place] [address] Bran Underwood MD, Urban Planner CLIA: [id number] Vitamin B12 4340 005-4332 pg/mL P-Comprehensive Metabolic Pa lei (CMP) Reviewed date:04/23/2025 12:11:04 PM Interpretation:Normal Performing Lab: Notes/Report: Test performed by [facility] [address] [place] [address] [address], [address], [place] [address] Bran Underwood MD, Urban Planner CLIA: [id number] Sodium 141 135-145 mmol/L Potassium 3.7 3.5-5.3 mmol/L Chloride 103 97-108 mmol/L CO2 27 22-32 mmol/L Glucose 87 65-99 mg/dL BUN 18 8-23 mg/dL Creatinine 0.75 0.50-1.00 mg/dL Calcium 8.8 8.6-10.4 mg/dL eGFR by Creatinine 85 >59 mL/min/1.73m2 Protein 6.8 6.0-8.3 g/dL Albumin 4.1 3.5-5.3 g/dL Alkaline Phosphatase 97 35-121 IU/L ALT (SGPT) 10 <5-47 IU/L AST (SGOT) 18 <5-40 IU/L Bilirubin, Total 0.2 <0.2-1.2 mg/dL A/G Ratio 1.5 1.1-2.5 P-Lipid Panel Reviewed date:04/23/2025 12:11:04 PM Interpretation:Normal Performing Lab: Notes/Report: Test performed by [facility], [address] , [address], [place] [address] Bran Underwood MD, Urban Planner CLIA: [id number] Cholesterol 167 <200 mg/dL Triglycerides 92 <150 mg/dL HDL Cholesterol 79 >39 mg/dL Cholesterol / HDL Ratio 2.11 0.00-4.44 Ratio Non-HDL Cholesterol 88 <130 mg/dL LDL Cholesterol (Calculation) 70 <130 mg/dL LDL Cholesterol Levels* Less than 100 mg/dL Optimal 100 to 129 mg/dL Near Optimal/ Above Optimal 130 to 159 mg/dL Borderline High 160 to 189 mg/dL High 190 mg/dL and above Very High * Categories as recommended by the 2004 ATPIII guidelines LDL/HDL Ratio 0.9 <3.3 Ratio LDL Cholesterol Patient History Test Date: 04/09/2025 LDL Results: 70 Units: mg/dL % Change: - P-TSH reflex to FT4 Reviewed date:04/23/2025 12:11:04 PM Interpretation:Normal Performing Lab: Notes/Report: Test performed by [facility] [address] [place], [place] [address] [address] , [place] [address] Bran Underwood MD, Urban Planner CLIA: [id number] TSH reflex to FT4 0.57 0.43-5.25 mU/L P-Vitamin D 25-Hydroxy Reviewed date:04/23/2025 12:11:04 PM Interpretation:Normal Performing Lab: Notes/Report: Test performed by [facility] [address] [place], [place] [address] [place] , [facility], [place] [address] Bran Underwood MD, Urban Planner CLIA: [id number] Vitamin D 25-Hydroxy 43.4 30.0-100.0 ng/mL Interpretation of Vitamin D 25 OH: < 20 ng/mL - Deficiency 20 - 29 ng/mL - Insufficiency 30 - 100 ng/mL - Sufficiency > 100 ng/mL - Super-therapeutic- toxicity may occur above this level. Clinical correlation required. REASON FOR VISIT fasting labs only Medications Medication SIG (Take, Route, Frequency, Duration) Notes Start Date End Date Status Agwgrackza-BBGZ-Fboqjdy e 50-325-40 MG 1-2 tab(s) orally every 4 hours prn headache 01/26/2025 Active amLODIPine Besylate 10 MG TAKE 1 TABLET EVERY DAY; Duration: 90 Active Atorvastatin Calcium 20 MG 1 tablet Orally Once a day; Duration: 15 days PT NEEDS APPT Active Medrol 4 MG as directed orally daily; Duration: 6 days 04/07/2025 Active Potassium Chloride 20 MEQ/15ML (10%) 15 mL with food/liquid Orally Once a day; Duration: 10 days Active Lisinopril 20 MG 1 tablet Orally Once a day; Duration: 90 day(s) Active valACYclovir HCl 1 GM 1 tablet Orally ev diogo 8 hours; Duration: 7 days 09/16/2024 Active Dicyclomine HCl 10 MG 1 tab(s) orally 4 times a day as needed; Duration: 5 days Active hydrOXYzine HCl 25 MG TAKE 1 TABLET FOUR TIMES DAILY NEEDED; Duration: 30 Active Fosamax 70 MG 1 tablet 30 minutes before the first food, beverage or medicine of the day with plain water Orally weekly; Duration: 90 day(s) 05/25/2024 Active Losartan Potassium 50 MG TAKE 1 TABLET BY MOUTH EVERY DAY FOR 30 DAYS Active Albuterol Sulfate HFA 108 (90 Base) MCG/ACT 2 puffs inhalation tid-qid; Duration: 28 days 04/20/2024 Active Ibuprofen 800 MG 1 tab(s) orally 3 times a day as needed 06/01/2021 Active Vitamin B-12 1000 MCG 1 tab(s) orally on ce a day; Duration: 30 day(s) Active traMADol HCl 50 MG 1 tab(s) orally ever y 4 hours Active Calcium 500 MG 1 TAB TID Activ e Vitamin E 400 UNIT 1 cap(s) orally once a day Active Folic Acid 1 MG 1 tab(s) orally twic e daily; Duration: 30 12/27/2014 Active Vitamin D 600MG 2 TABS ORAL QD Active Glucosamine Chondroitin MSM DIRECTED Active Encounters [facility]counter Location Date [facility] [address] [id number] 04/09/2025 Judit Chong Essential (primary) hypertension I10 ; Hyperlipidemia, unspecified hyperlipidemia type E78.5 ; Vitamin B12 deficiency E53.8 ; Screening for thyroid disorder Z13.29 and Other fatigue R53.83 Assessments Encounter Date Diagnosis (ICD Code) Assessment Notes Treatment Notes Treatment Clinical Notes Section Notes 04/09/2025 Essential (primary) hypertension (ICD-10 - I10) 04/09/2025 Hyperlipidemia, unspecified hyperlipidemia type (ICD-10 - E78.5) 04/09/2025 Vitamin B12 deficiency (ICD-10 - E53.8) 04/09/2025 Screening for thyroid disorder (ICD-10 - Z13.29) 04/09/2025 Other fatigue (ICD-10 - R53.83) Plan Of Treatment No Information Progress Notes * CAITLIN NAQVIOB:1955 ( 70 yo F)Acc No.[id number]:04/09/2025 Patient: PATRICIA MAYA Provider: PATIENCE Joiner :1955 A ge:70 Y S ex:Female Date:04/09/2025 Address:[address] [place], [place] [phone] Pcp:Benita Infante Subjective: * Chief Complaints: * 1 . Fasting labs only. * Medical History: * Medications: T aking Glucosamine Chondroitin MSM [...] times a day as needed , Taking Usjybmtbvh-ILGB-Sixhqtht 50-325-40 MG Capsule 1-2 tab(s) orally every 4 hours prn headache , Taking Atorvastatin Calcium 20 MG Tablet 1 tablet Orally Once a day , Notes to Pharmacist: PT NEEDS APPT, Taking Potassium Chloride 20 MEQ/15ML (10%) Solution 15 mL with food/liquid Orally Once a day , Taking Medrol 4 MG Tablet Therapy Pack as directed orally daily , Taking amLODIPine Besylate 10 MG Tablet TAKE 1 TABLET EVERY DAY , Medication List reviewed and reconciled with the patient Objective: * Vitals: Assessment: * Assessment: 1. E ssential (primary) hypertension - I10 2 . H yperlipidemia, unspecified hyperlipidemia type - E78.5 3 . V itamin B12 deficiency - E53.8 ?4. S creening for thyroid disorder - Z13.29 5 . O ther fatigue - R53.83? Plan: * Treatment: Value Reference Range A /G Ratio 1.5 1.1-2.5 - * A lbumin 4.1 3.5-5.3 - g/dL * A lkaline Phosphatase 97 35-121 - IU/L * A LT (SGPT) 10 <5-47 - IU/L * A ST (SGOT) 18 <5-40 - IU/L * B ilirubin, Total 0.2 <0.2-1.2 - mg/dL * B UN 18 8-23 - mg/dL * C alcium 8.8 8.6-10.4 - mg/dL * C hloride 103 97-108 - mmol/L * C O2 27 22-32 - mmol/L * C reatinine 0.75 0.50-1.00 - mg/dL * G lucose 87 65-99 - mg/dL * P otassium 3.7 3.5-5.3 - mmol/L * S odium 141 135-145 - mmol/L * P rotein 6.8 6.0-8.3 - g/dL * e GFR by Creatinine 85 >59 - mL/min/1.73m2 * Karoline Oliveira 04/23/2025 12: 10:55 PM EDT > See phone encounter 2.?Hyperlipidemia, unspecified hyperlipidemia type?LAB: P-Lipid Panel (Collection Date & Time - 04/09/2025 12:11 PM)?Normal* Value Reference Range C holesterol / HDL Ratio 2.11 0.00-4.44 - Ratio * C holesterol 167 <200 - mg/dL * H DL Cholesterol 79 >39 - mg/dL * L DL Cholesterol (Calculation) 70 <130 - mg/d L * L DL/HDL Ratio 0.9 <3.3 - Ratio * N on-HDL Cholesterol 88 <130 - mg/dL * T riglycerides 92 <150 - mg/dL * Karoline Oliveira 04/23/2025 12: 10:55 PM EDT > See phone encounter 3.?Vitamin B12 deficiency?LAB: P-Vitamin B12 (Collection Date & Time - 04/09/2025 12:11 PM)?1355* Value Reference Range V itamin B12 1355 H 232-1245 - pg/mL * Karoline Oliveira 04/23/2025 12: 10:55 PM EDT > See phone encounter 4.?Screening for thyroid disorder?LAB: P-TSH reflex to FT4 (Collection Date & Time - 04/09/2025 12:11 PM)? Normal* Value Reference Range T SH reflex to FT4 0.57 0.43-5.25 - mU/L * Karoline Oliveira 04/23/2025 12: 10:55 PM EDT > See phone encounter 5.?Other fatigue?LAB: P-Vitamin D 25-Hydroxy (Collection Date & Time - 04/09/2025 12:11 PM)? Normal* Value Reference Range V itamin D 25-Hydroxy 43.4 30.0-100.0 - ng/mL * Karoline Oliveira 04/23/2025 12: 10:55 PM EDT > See phone encounter * Labs: * L ab: CBC Venipuncture (in house) (Collection Date & Time - 04/13/2025) N ormal Value Reference Range w bc 8.0 3.5 - 10 * l ymph 22.0% 15 - 50 * m id 5.5% 2 - 15 * g ran 72.5% 35 - 80 * r bc 4.01 3.5 - 5.5 * h gb 12.7 11.5 - 16.5 * h ct 39.0 35 - 55 * m cv 97.1 75 - 100 * m ch 31.7 25 - 35 * m chc 32.6 31 - 38 * p latlet 376 100 - 400 * Karoline Oliveira 04/23/2025 12: 10:55 PM EDT > See phone encounter * Procedure Codes: 8 5025 CBC WITH AUTO DIFF, 02981 VENIPUNCT, ROUTINE* * Images: Billing Information: * Visit Code: * Procedure Codes: 29451 CBC WITH AUTO DIFF. 11803 VENIPUNCT, ROUTINE*. * Electronic signature of PATIENCE Pederson on 09/21/2025 at 10:02 AM EST Sign off status: Pending * Provider: PATIENCE Joiner Date: 0 04/09/2025 Generated for Destini yang/Irene/eTransmitting on: 1 11/21/2024 10:02 AM EST
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
--- OUTSIDE RECORDS SUMMARY | 2025-05-13 06:30 | XMS_ITS ---
[facility] Address [address] [facility] [address] [id number] Care Team Providers Care Solid Waste Facility Supervisor Name Role Phone Benita Infante Primary Care Provider Judit Chong Unavailable [phone] Allergies Allergen (clinical drug ingredient) Drug/Non Drug Allergy documented on EMR Reaction Allergy Type Onset Date Status Decongestant Unknown Drug Allergy Acti ve losartan Losartan Potassium dizziness Drug Allergy Active triamcinolone Nasacort Allergy 24HR Unknown Drug Allergy Active morphine Morphine Unknown Drug Allergy Active REASON FOR VISIT patient wants to discuss medication, Mammo, bone density Medications Medication SIG (Take, Route, Frequency, Duration) Notes Start Date End Date Status amLODIPine Besylate 10 MG TAKE 1 TABLET EVERY DAY; Duration: 90 Active Efysexrtqh-UQWN-Imyffxfk 50-325-40 MG 1-2 tab(s) orally every 4 hours prn headache 01/26/2025 Active Dicyclomine HCl 10 MG 1 tab(s) orally 4 times a day as needed; Duration: 5 days Active Lisinopril 20 MG 1 tablet Orally Once a day; Duration: 90 day(s) Active Ibuprofen 800 MG 1 tab(s) orally 3 times a day as needed 06/01/2021 Active Vitamin B-12 1000 MCG 1 tab(s) orally on ce a day; Duration: 30 day(s) Active traMADol HCl 50 MG 1 tab(s) orally every 4 hours Active Calcium 500 MG 1 TAB TID Activ e Vitamin E 400 UNIT 1 cap(s) orally once a day Active Glucosamine Chondroitin MSM DIRECTED Active Iron 325 (65 Fe) MG 1 tablet Orally Three times a Week Active Folic Acid 1 MG 1 tab(s) orally twice daily; Duration: 30 12/27/2014 Active Potassium Chloride 20 MEQ/15 ML (10%) 15 mL with food Orally twice a day Active Xeljanz XR 11 MG 1 tablet Orally Once a day Active predniSONE 10 MG 1 tablet with food or milk Orally Once a day, prn Active Methylsulfonylmethane 500 MG as directed Orally Active Vital Signs Blood pressure systolic 133 mm Hg 05/13/20 25 Blood pressure diastolic 80 mm Hg 025 Heart Rate 84 /min 05/13/2025 Height 63 in 05/13/2025 Weight 180 lbs 05/13/2025 BMI 31.88 kg/m2 05/13/2025 Encounters Encounter Location Date Provider Diagnosis [facility] [address] [facility] [address] [place] [id number] 05/13/2025 Judit Crowdy Dyspepsia R10.13 ; Loose stools R19.5 ; Leg cramps R25.2 and Other fatigue R53.83 Assessments Encounter Date Diagnosis (ICD Code) Assessment Notes Treatment Notes Treatment Clinical Notes Section Notes 05/13/2025 Dyspepsia (ICD-10 - R10.13) Patient is going to await pathology reports from Dr. Reilly. If normal, can make referral to Dr. Calderon. 05/13/2025 Loose stools (ICD-10 - R19.5) 05/13/2025 Leg cramps (ICD-10 - R25.2) Will increase potassium to bid as it was on the low end of normal when last checked and recheck labs in a few weeks. 05/13/2025 Other fatigue (ICD-10 - R53.83) Will come back in a few weeks and get an iron, magnesium, and potassium checked Plan Of Treatment Medication Medication Name Sig Start Date Stop Date Notes Potassium Chloride 20 MEQ/15 ML (10%) 15 mL with food Orally twice a day Treatment Notes Assessment Notes Dyspepsia Patient is going to await pathology reports from Dr. Reilly. If normal, can make referral to Dr. Calderon. Leg cramps Will increase potass ium to bid as it was on the low end of normal when last checked and recheck labs in a few weeks. Other fatigue Will come back in a few weeks and get an iron, magnesium, and potassium checked Pending Test Test Name Order Date H-Ova + Parasite Exam 05/13/2025 H-Culture STOOL 05/13/2025 Next Appt Details Follow Up: 2-3 weeks, Reason : Progress Notes * CAITLIN NAQVIOB:1955 ( 70 yo F)Acc No.[id number]:05/13/2025 Progress Notes Patient: PATRICIA MAYA Provider: PATIENCE Joiner :1955 A ge:70 Y S ex:Female Date:05/13/2025 Address:[address] [place] [address] Pcp:Benita Infante Subjective: * Chief Complaints: * 1 . Patient wants to discuss medication. 2. Mammo, bone density. * HPI: H PI: Patient is here today for to discuss bowel issues. She has a hx of rectal cancer and is waiting on pathology from her recent c- scope. She has a lot of stomach upset and pain. She has not seen GI. She is wondering if there is an infection or a parasite. . G astroenterology: c/o Abdominal Pain S he has a hx of colon cancer and is waiting on pathology from her recent c-scope. She has a lot of stomach upset and pain. She has not seen GI. She is wondering if there is an infection or a parasite. . R heumatology: c/o joint pain. c/o muscle pain l eg cramps. C onstitutional: c/o fatigue a ll day. * ROS: D ERMATOLOGY: no R lillian. [...] hip replacement 01/23/13, right hip replacement 05/19/19, [facility]: Rectal cancer removed 06/02/2020, colonoscopy 08/14/2021. * [...] ouside US: no. * Medications: T aking predniSONE 10 MG Tablet 1 tablet with food or milk Orally Once a day, prn , Taking Xeljanz XR 11 MG Tablet Extended Release 24 Hour 1 tablet Orally Once a day , Taking Methylsulfonylmethane 500 MG Capsule as directed Orally , Taking Iron 325 (65 Fe) MG Tablet 1 tablet Orally Three times a Week , Taking Glucosamine Chondroitin MSM DIRECTED , Taking Vitamin E 400 UNIT Capsule 1 cap(s) orally once a day , Taking Calcium 500 MG 1 TAB TID , Taking Folic Acid 1 MG Tablet 1 tab(s) orally twice daily , Taking traMADol HCl 50 MG Tablet 1 tab(s) orally every 4 hours , Taking Vitamin B-12 1000 MCG Tablet 1 tab(s) orally once a day , Taking Ibuprofen 800 MG Tablet 1 tab(s) orally 3 times a day as needed , Taking Lisinopril 20 MG Tablet 1 tablet Orally Once a day , Taking Dicyclomine HCl 10 MG Capsule 1 tab(s) orally 4 times a day as needed , Taking Hndjjoupci-FLCF-Irwauuff 50-325-40 MG Capsule 1-2 tab(s) orally every 4 hours prn headache , Taking amLODIPine Besylate 10 MG Tablet TAKE 1 TABLET EVERY DAY , Taking Potassium Chloride 20 MEQ/15ML (10%) Solution 15 mL with food Orally Once a day , Discontinued Vitamin D 600MG 2 TABS ORAL QD , Discontinued Albuterol Sulfate HFA 108 (90 Base) MCG/ACT Aerosol Solution 2 puffs inhalation tid-qid , Discontinued Losartan Potassium 50 MG Tablet TAKE 1 TABLET BY MOUTH EVERY DAY FOR 30 DAYS , Discontinued Fosamax 70 MG Tablet 1 tablet 30 minutes before the first food, beverage or medicine of the day with plain water Orally weekly , Discontinued hydrOXYzine HCl 25 MG Tablet TAKE 1 TABLET FOUR TIMES DAILY NEEDED , Discontinued valACYclovir HCl 1 GM Tablet 1 tablet Orally every 8 hours , Discontinued Atorvastatin Calcium 20 MG Tablet 1 tablet Orally Once a day , Notes to Pharmacist: PT NEEDS APPT, Discontinued Medrol 4 MG Tablet Therapy Pack as directed orally daily , Medication List reviewed and reconciled with the patient * Allergies: M orphine, Nasacort Allergy 24HR, Decongestant, Losartan Potassium: dizziness. Objective: * Vitals: W t: 180, Temp: 98.2, BP: 133/80, HR: 84, Nurse: pe, Ht: 63, BMI:31.88. * Examination: G eneral Examination: General Appearance: N AD. H EENT: u nremarkable.?Oral cavity: n o lesions, mucosa moist and WNL, no erythema. N antoine: s upple, no lymphadenopathy. C hest: n ormal shape and expansion. H eart: R SR. L ungs: c lear to auscultation. A bdomen: b owel sounds present, soft and nontender, no organomegaly or masses, no guarding or rigidity. N eurologic Exam: I ntact, gait normal. S kin: n ormal, no rash. P eripheral pulses: n ormal (2+) bilaterally. E xtremities: t race leg edema. Assessment: * Assessment: 1. D yspepsia - R10.13 (Primary) 2 . L oose stools - R19.5 3 . L eg cramps - R25.2 4 . O ther fatigue - R53.83 Plan: * Treatment: 2. L oose stools L AB: H-Ova + Parasite Exam L AB: H-Culture STOOL 3. L eg cramps Increase Potassium Chloride Solution, 20 MEQ/15ML (10%), 15 mL with food, Orally, twice a day. Notes: Will increase potassium to bid as it was on the low end of normal when last checked and recheck labs in a few weeks. 4. O ther fatigue Notes: Will come back in a few weeks and get an iron, magnesium, and potassium checked * Procedure Codes: G 2211 Complex e/m visit add on, 1036F TOBACCO NON-USER, G8783 BP SCR PRFRM RCMDD DEFIND SCR INTVL, G8752 MOST RECENT SYSTOLIC BP < 140MM HG, G8754 MOST RECENT DIASTOLIC BP < 90MM HG * Follow Up: 2 -3 weeks * Images: Billing Information: * Visit Code: 45198 Office Visit, Est Pt., Level 4. * Procedure Codes: G2211 Complex e/m visit add on. 1036F TOBACCO NON-USER. G8783 BP SCR PRFRM RCMDD DEFIND SCR INTVL. G8752 MOST RECENT SYSTOLIC BP < 140MM HG. G8754 MOST RECENT DIASTOLIC BP < 90MM HG. * Electronic signature of PATIENCE Pederson on 09/21/2025 at 10:01 AM EST Sign off status: Pending * Provider: PATIENCE Joiner Date: 0 05/13/2025 Generated for Destini yang/Irene/Cherryitting on: 1 11/21/2024 10:01 AM EST History and Physical Notes * HPI (History of Present Illness) Category Sub-Category Detail Notes Category Not es Gastroenterology Abdominal Pain She has a hx of colon cancer and is waiting on pathology from her recent c-scope. She has a lot of stomach upset and pain. She has not seen GI. She is wondering if there is an infection or a parasite. Constitutional fatigue all day Rheumatology joint pain muscle pain leg cramps HPI Patient is here today for to dis cuss bowel issues. She has a hx of rectal cancer and is waiting on pathology from her recent c-scope. She has a lot of stomach upset and pain. She has not seen GI. She is wondering if there is an infection or a parasite. Examination Category Sub-Category Detail Notes Category Not es General Examination HEENT: unremarkable Heart: RSR Lungs: clear to auscultatio n Abdomen: bowel sounds present , soft and nontender, no organomegaly or masses, no guarding or rigidity Extremities: trace leg edema General Appearance: NAD Skin: normal, no rash Neurologic Exam: Intact, gait normal Neck: supple, no lymphaden opathy Oral cavity: no lesions, mucosa m oist and WNL, no erythema Peripheral pulses: normal (2+) bilatera lly Chest: normal shape and exp ansion
--- OUTSIDE RECORDS SUMMARY | 2025-06-14 08:35 | XMS_ITS ---
Author Organization [facility] Address [address] [facility] [address] [facility] [address] [place] [id number] Care Team Providers Care Emergency Preparedness Coordinator Name Role Phone Benita Infante Primary Care Provider FrantzJudit candelaria Unavailable [phone] Results Component Value Reference Range Notes P-Iron Reviewed date:06/16/2025 08:13:06 AM Interpretation:Normal Performing Lab: Notes/Report: Test performed by [facility] [address] [place] [address] , [address], [place] [address] Bran Underwood MD, Cotton Chopper CLIA: [id number] Iron 94 37-145 ug/dL P-Potassium Reviewed date:06/16/2025 08:13:20 AM Interpretation:Normal Performing Lab: Notes/Report: Test performed by [employer], [employer] [address] [place] [address] , [address], [place] [address] Bran Underwood MD, Cotton Chopper CLIA: [id number] Potassium 4.0 3.5-5.3 mmol/L P-Magnesium Reviewed date:06/16/2025 08:13:13 AM Interpretation:Normal Performing Lab: Notes/Report: Test performed by [facility] [address] [place] [address] , [address], [place] [address] Bran Underwood MD, Cotton Chopper CLIA: [id number] Magnesium 2.0 1.6-2.4 mg/dL REASON FOR VISIT BLOOD WORK Encounters Encounter Location Date Provider Diagnosis [facility] [address] [facility] [address] [place] [id number] 06/14/2025 Judit Arlette Hypokalemia E87.6 an d Fatigue R53.83 Assessments Encounter Date Diagnosis (ICD Code) Assessment Notes Treatment Notes Treatment Clinical Notes Section Notes 06/14/2025 Hypokalemia (ICD-10 - E87.6) 06/14/2025 Fatigue (ICD-10 - R53.83) Plan Of Treatment No Information Progress Notes * CAITLIN NAQVIOB:1955 ( 70 yo F)Acc No.[id number]:06/14/2025 Patient: PATRICIA MAYA Provider: PATIENCE Joiner :1955 A ge:70 Y S ex:Female Date:06/14/2025 Address:[address] [place] [address] [place], [place] Pcp:Benita Infante Subjective: * Chief Complaints: * 1 . BLOOD WORK. * Medical History: Objective: * Vitals: Assessment: * Assessment: 1. H ypokalemia - E87.6 (Primary) 2 . F atigue - R53.83 Plan: * Treatment: Value Reference Range P otassium 4.0 3.5-5.3 - mmol/L * Judit Chong 06/16/2025 08 :13:18 AM EDT >see TE 2.?Fatigue?LAB: P-Iron (Collection Date & Time - 06/14/2025 01:00 PM)?Normal* Value Reference Range I mo 94 37-145 - ug/dL * Judit Chong 06/16/2025 08 :13:03 AM EDT >see TE ?LAB: P-Magnesium (Collection Date & Time - 06/14/2025 01:00 PM)?Normal* Value Reference Range M agnesium 2.0 1.6-2.4 - mg/dL * Judit Chong 06/16/2025 08 :13:11 AM EDT >see TE * Images: Billing Information: * Visit Code: * Procedure Codes: * Electronic signature of PATIENCE Pederson on 09/21/2025 at 10:00 AM EST Sign off status: Pending * Provider: PATIENCE Joiner Date: 0 06/14/2025 Generated for Destini yang/Irene/Tigist on: 1 11/21/2024 10:00 AM EST
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
--- OUTSIDE RECORDS SUMMARY | 2025-08-05 13:00 | XMS_ITS | Encounter Summary ---
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 increased risk thromboembolic disease, infection, possiblemalignancy, major adverse cardiac events-patient understands, but this medication has helped her significantly and she wishes to continue -Continue xeljanz 11 mg XR daily -Patient assistance paperwork as insurance not covering -CBC LFT creatinine ESR CRP QuantiFERON-TB 03/05 reviewed 01/04 CBC LFT creatinine ESR CRP, QuantiFERON-TB reviewed 01/03-CBC, LFT, creatinine ESR CRP,QTB test, labs reviewed 8. Follow-up 6 months, sooner if needed at which time we will repeat Xeljanz labs 9. Longitudinal care: Active discussion with patient concerning risks and benefits of long-term management rheumatoid arthritis with Xeljanz, fibromyalgia with tizanidine/tramadol/ibuprofen, as well as concerns for continued compliance QuantiFERON-TB -12/04/17, 12/02, 01/03, 01/04, 03/05-- documented in this encounter Plan of Treatment Upcoming Encounters Date Type Department Care Team (Late st Contact Info) Description 12/30/2025 11:00 AM EST Office Visit [facility] [address] [phone] Francie Grande MD [address] [place] [address] 01/21/2026 10:00 AM EDT Office Visit [facility] [address] [address] Liborio Pardo MD [address] [place] [address] 02/03/2026 1:00 PM EDT [facility] [address] [place] [address] Michaela Palacio MD [address] [place] [address] documented as of this encounter Visit Diagnoses Diagnosis Rheumatoid arthritis of multiple sites 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 (HCC)- Primary Rheumatoid arthritis Drug therapy Encounter for other specified aftercare Primary generalized (osteo)arthritis Generalized osteoarthrosis, involving multiple sites Fibromyalgia Mylagia and myositis, unspecified documented in this encounter Discontinued Medications Medication Sig Discontinue Reason Start Date End Da te tiZANidine (ZANAFLEX) 2 mg Oral TabletIndications:Rheu matoid arthritis of multiple sites 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 (HCC) TAKE 1 TABLET EVERY NIGHT Patient Reported not taking medication 06/17/2024 08/05/2025 tofacitinib (XELJANZ XR) 11 mg Oral Tablet Sustained Release 24 hrIndications:Rheumato id arthritis of multiple sites 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 (HCC),Drug therapy Take 1 Tablet by mouth daily. DELETE-Duplicate 02/04/2025 08/05/2025 ibuprofen (ADVIL;MOTRIN) 800 mg Oral TabletIndications:Rheu matoid arthritis of multiple sites 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 (HCC) Take 1 Tablet by mouth 2 times daily as needed for Pain. Reorder 08/10/2024 08/05/2025 omeprazole (PRILOSEC) 20 mg Oral Capsule, Delayed Release(E.C.)Indicatio ns:Rheumatoid arthritis of multiple sites 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 (HCC) Take 1 Capsule by mouth daily. Reorder 08/10/2024 08/05/2025 traMADoL (ULTRAM) 50 mg Oral TabletIndications:Rheu matoid arthritis of multiple sites 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 (HCC),Primary generalized (osteo)arthritis Take 1 Tablet by mouth 2 times daily as needed for Pain (1-5 moderate pain or breakthrough). Reorder 08/10/2024 08/05/2025 tofacitinib (XELJANZ XR) 11 mg Oral Tablet Sustained Release 24 hrIndications:Rheumato id arthritis of multiple sites 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 (HCC) Take 1 Tablet by mouth daily. Reorder 03/09/2025 08/05/2025 documented as of this encounter Historical Medications * This list may reflect changes made after this encounter. ferrous sulfate 325 mg (65 mg iron) Oral Tablet Take 325 mg by mouth daily. added in this encounter Care Teams Loom Winder Tender Relationship Specialty Start Date End Date Benita Infante [address] [place] [address] PCP - General 07/10/10 Dennis Mak MD [address] [place] [address] Internal Medicine-Gastroenterology 07/14/13 Michaela Palacio MD [address] [place] [phone] Internal Medicine-Rheumatology 02/20/23 documented as of this encounter
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
--- OUTSIDE RECORDS SUMMARY | 2025-09-16 11:30 | XMS_ITS ---
Author Organization [facility] Address [address] [facility] [address] [id number] Care Team Providers Care Telephone Lineman Name Role Phone Benita Infante Primary Care Provider Judit Chong Unavailable [phone] Allergies Allergen (clinical drug ingredient) Drug/Non Drug Allergy documented on EMR Reaction Allergy Type Onset Date Status Decongestant Unknown Drug Allergy Acti ve losartan Losartan Potassium dizziness Drug Allergy Active triamcinolone Nasacort Allergy 24HR Unknown Drug Allergy Active morphine Morphine Unknown Drug Allergy Active Results Component Value Reference Range Notes P-Culture, Urine (Not yet re viewed by provider) Interpretation: Performing Lab: Notes/Report: Test performed by [facility] [address] [place] [address] , [address], [place] [address] Bran Underwood MD, Wellness Ambassador CLIA: [id number] Specimen Source Urine - Void Culture, Urine See Below See Microbiol ogy Report Proteus mirabilis >100,000 CFU/ml Proteus mirabilis Sensitivity Panel See Below _ Organism P.mirab Antibiotic INTERP _ Amikacin S Ampicillin S Aztreonam S Cefepime S Cefoxitin S Ceftazidime S Ceftriaxone S Cefuroxime S Ciprofloxacin S Ertapenem S Gentamicin S Levofloxacin S Nitrofurantoin R Piperacillin/Tazo S Tetracycline R Tobramycin S Trimeth/Sulfa S S=SUSCEPTIBLE I=INTERMEDIATE R=RESISTANT Urinalysis - Inhouse Reviewed date:09/16/2025 04:46:58 PM Interpretation: Performing Lab: Notes/Report: Color/Clarity yellow/cloudy Leuk 3+ Nitrite pos Urobili 3.2 Protein trace pH 7.0 Blood 1+ Sp. Gr. 1.015 Ketone neg Bili neg Gluc neg REASON FOR VISIT pre op physical and Poss UTI Medications Medication SIG (Take, Route, Frequency, Duration) Notes Start Date End Date Status Glucosamine Chondroitin MSM DIRECTED Active Calcium 500 MG 1 TAB TID Activ e Vitamin E 400 UNIT 1 cap(s) orally once a day Active Folic Acid 1 MG 1 tab(s) orally Once a day; Duration: 30 days 12/27/2014 Active traMADol HCl 50 MG 1 tab(s) orally every 4 hours Active Cephalexin 500 MG 1 capsule Orally twice a day; Duration: 7 days 09/16/2025 Active Iron 325 (65 Fe) MG 1 tablet Orally Three times a Week Active predniSONE 10 MG 1 tablet with food or milk Orally Once a day, prn Active Methylsulfonylmethane 500 MG as directed Orally Active Xeljanz XR 11 MG 1 tablet Orally Once a day Active amLODIPine Besylate 10 MG 1 tablet Orall y Once a day; Duration: 90 days Active Lisinopril 40 MG 1 tablet Orally Once a day; Duration: 90 days 07/21/2025 Active Zybnnmfynt-QGTY-Yaqktwmj 50-325-40 MG 1-2 tab(s) orally every 4 hours prn headache 01/26/2025 Active Potassium Chloride 20 MEQ/15 ML (10%) MIX 15 MLS IN 4 OUNCES OF LIQUID AND DRINK TWICE A DAY WITH FOOD; Duration: 60 Active Dicyclomine HCl 10 MG 1 tab(s) orally 4 times a day as needed; Duration: 5 days Active Ibuprofen 800 MG 1 tab(s) orally 3 times a day as needed 06/01/2021 Active Vitamin B-12 1000 MCG 1 tab(s) orally on ce a day; Duration: 30 day(s) Active Vital Signs Blood pressure systolic 126 mm Hg 09/16/20 25 Blood pressure diastolic 60 mm Hg 025 Heart Rate 94 /min 09/16/2025 Height 63 in 09/16/2025 Weight 172.8 lbs 09/16/2025 BMI 30.61 kg/m2 09/16/2025 Encounters Encounter Location Date Provider Diagnosis [facility] [address] [facility] [address] [id number] 09/16/2025 Judit Chong Urinary tract infection, site not specified N39.0 ; Preop general physical exam Z01.818 ; Breast abscess N61.1 and Epigastric pain R10.13 Assessments Encounter Date Diagnosis (ICD Code) Assessment Notes Treatment Notes Treatment Clinical Notes Section Notes 09/16/2025 Urinary tract infection, site not specified (ICD-10 - N39.0) Will need to have infection cleared before having any surgery. 09/16/2025 Preop general physical exam (ICD-10 - Z01.818) Patient has not had preop testing at this time. This will need to be reviewed, infections will need to be resolved, and she may need an EGD before surgical clearance can be given. 09/16/2025 Breast abscess (ICD-10 - N61.1) Will need to have infection cleared before having any surgery. 09/16/2025 Epigastric pain (ICD-10 - R10.13) May need an EGD before having foot surgery. Plan Of Treatment Medication Medication Name Sig Start Date Stop Date Notes Cephalexin 500 MG 1 capsule Orally twi ce a day; Duration: 7 days 09/16/2025 Treatment Notes Assessment Notes Urinary tract infection, site not specif ied Will need to have infection cleared before having any surgery. Preop general physical exam Patient has not had preop testing at this time. This will need to be reviewed, infections will need to be resolved, and she may need an EGD before surgical clearance can be given. Breast abscess Will need to have in fection cleared before having any surgery. Epigastric pain May need an EGD befo re having foot surgery. Pending Test Test Name Order Date P-Culture, Urine 09/16/2025 Progress Notes * CAITLIN NAQVIOB:1955 ( 70 yo F)Acc No.[id number]:09/16/2025 Physical Patient: PATRICIA MAYA Provider: PATIENCE Joiner :1955 A ge:70 Y S ex:Female Date:09/16/2025 Address:[address] [place], [place] [id number] Pcp:Benita Infante Subjective: * Chief Complaints: * 1 . pre op physical and Poss UTI. * HPI: A dult Pre-Op physical: 70 year old female presents with c/o Procedure: l t foot surgery. c/o Date of Procedure: 11/29/2024. c/o Name of Surgeon: Renee Alvarez.? U rology: c/o frequent urination P t sts her symptoms started a week ago. Pt sts she took some OTC for 2 days and eased up but then it came back. c/o burning sensation. G astroenterology: c/o Abdominal Pain E pigastric, she has had an ulcer in the past and thinks she may have another ulcer. . * ROS: D ERMATOLOGY: no R [...] replacement 01/23/13, [facility] [place] [facility] cancer removed 06/02/2020, colonoscopy 08/14/2021. * [...] times a day as needed , Taking Ckxberllwl-YKZG-Ojuhqcix 50-325-40 MG Capsule 1-2 tab(s) orally every 4 hours prn headache , Taking Dicyclomine HCl 10 MG Capsule [...] Potassium: dizziness. Objective: * Vitals: W t: 172.8, Temp: 97.7, BP: 126/60, HR: 94, Nurse: , Ht: 63, BMI:30.61. * Examination: G eneral Examination: General Appearance: N AD. H EENT: u nremarkable.?Oral cavity: n o lesions, mucosa moist and WNL, no erythema. N antoine: s upple, no lymphadenopathy. C hest: n ormal shape and expansion. H eart: R SR. L ungs: c lear to auscultation. A bdomen: b owel sounds present, soft, ttp in the epigastric area. N eurologic Exam: I ntact, gait normal. S kin: o nce small abscess under each breast, no longer draining. P eripheral pulses: n ormal (2+) bilaterally. E xtremities: n o leg edema. Assessment: * Assessment: 1. P reop general physical exam - Z01.818 (Primary) 2 . U rinary tract infection, site not specified - N39.0 3 . B reast abscess - N61.1 4 . E pigastric pain - R10.13 Plan: * Treatment: 2. U rinary tract infection, site not specified Start Cephalexin Capsule, 500 MG, 1 capsule, Orally, twice a day, 7 days, 14 Capsule, Refills 0.? L AB: P-Culture, Urine (Collection Date & Time - 09/16/2025 03:04 PM) Value Reference Range C ulture, Urine See Below - * S pecimen Source Urine - Void - * S ensitivity Panel See Below - * P roteus mirabilis >100,000 CFU/ml Proteus mirabilis - ?LAB: Urinalysis - Inhouse (Collection Date & Time - 09/16/2025)* Value Reference Range C olor/Clarity yellow/cloudy * L euk 3+ * N itrite pos * U robili 3.2 * P rotein trace * p H 7.0 * B lood 1+ * S p. Gr. 1.015 * K etone neg * B luz neg * G reza neg * Lisa Joya 09/16/2025 03:3 4:20 PM EST > Provider reviewed results while patient in office. Notes: Will need to have infection cleared before having any surgery.??3.?Breast abscess? Notes: Will need to have infection cleared before having any surgery.?? 4.?Epigastric pain? Notes: May need an EGD before having foot surgery.?? * Procedure Codes: 8 1002 Urinalysis, no micro * Images: Billing Information: * Visit Code: * Procedure Codes: 81891 Urinalysis, no micro. * Electronic signature of PATIENCE Pederson on 09/21/2025 at 10:00 AM EST Sign off status: Pending * Provider: PATIENCE Joiner Date: 11/16/2024 Generated for Destini yang/Irene/Jocelinesmitting on: 11/21/2024 10:00 AM EST History and Physical Notes * HPI (History of Present Illness) Category Sub-Category Detail Notes Category Not es Gastroenterology Abdominal Pain Epigastric, she has had an ulcer in the past and thinks she may have another ulcer. Urology frequent urination Pt sts her sy mptoms started a week ago. Pt sts she took some OTC for 2 days and eased up but then it came back burning sensation Adult Pre-Op physical Procedure: lt foot surgery Date of Procedure: 09/29/2025 Name of Surgeon: Dr. Alvarez Examination Category Sub-Category Detail Notes Category Not es General Examination HEENT: unremarkable Heart: RSR Lungs: clear to auscultatio n Abdomen: bowel sounds present , soft, ttp in the epigastric area Extremities: no leg edema General Appearance: NAD Skin: once small abscess u nder each breast, no longer draining Neurologic Exam: Intact, gait normal Neck: supple, no lymphaden opathy Oral cavity: no lesions, mucosa m oist and WNL, no erythema Peripheral pulses: normal (2+) bilatera lly Chest: normal shape and exp ansion
[2025-09-21 08:07] VITALS: BMI 30.9
--- OUTSIDE RECORDS SUMMARY | 2025-09-21 10:00 | XMS_ITS | Encounter Summary ---
Author Organization [facility] [place] [place] [address] Care Team Providers Care Cnc Applications Engineer Name Role Phone Benita Infante Primary Care Provider [phone] Dennis Mak MD Unavailable [phone] Michaela Palacio MD Unavailable [phone] Encounter Details Date Type Department Care Team (Late st Contact Info) Description 04/15/2020 Orders Only SE[facility] Gastro [facility] [address] [facility] [address] [place] [address] Dennis Mak MD [address] [place] [address] Social History Tobacco Use Types Packs/Day Years [...] 11:00 AM EST Office Visit [facility] Urogynecology [address] [phone] Francie Grande MD [address] [place] [address] 01/21/2026 10:00 AM EDT Office Visit [facility] Dermatology [facility] [address] [phone] Liborio Pardo MD [address] [place] [address] 02/03/2026 1:00 PM EDT Office Visit [facility] [place] [address] Michaela Palacio MD [address] [place] [address] documented as of this encounter Procedures Procedure Name Priority Date/Time Associated Diagnosis Comments [facility] EGD-COLONOSCOPY Routine 04/15/2020 10:20 AM EDT documented in this encounter Results * [facility] EGD-COLONOSCOPY (04/15/2020 10:20 AM EDT) 04/15/2020 10:2 0 AM EDT Impressions [facility] - 04/15/2020 11:24 AM EDT Plan: CT scan chest/abdomen/pelvis with contrast Colonoscopy in 1 year. This section is an excerpt of the full report. Dennis Mak MD GI PROCEDURE ORDERABLES Fin al Result [facility] [address] [place] [address] documented in this encounter Visit Diagnoses Not on filedocumented in this encounter Care Teams Cnc Applications Engineer Relationship Specialty Start Date End Date Benita Infante [address] [facility] [place] [address] PCP - General 07/10/10 Dennis Mak MD [facility] [address] [facility] [place] [address] Internal Medicine-Gastroenterology 07/14/13 Michaela Palacio MD [address] [place] [address] Internal Medicine-Rheumatology 02/20/23 documented as of this encounter
--- OUTSIDE RECORDS SUMMARY | 2025-09-21 10:00 | XMS_ITS | Encounter Summary ---
Author Organization [place] [address] Care Team Providers Care [employer] Name Role Phone Benita Infante Primary Care Provider [phone] Dennis Mak MD Unavailable [phone] Michaela Palacio MD Unavailable [phone] Encounter Details Date Type Department Care Team (Late st Contact Info) Description 04/15/2020 Lab [facility] [place] [address] Dennis Mak MD [address] [place] [address] Iron deficiency anemia, unspecified; Diaphragmatic [...] 11:00 AM EST Office Visit [facility] Urogynecology [address] [phone] Francie Grande MD [address] [place] [address] 01/21/2026 10:00 AM EDT Office Visit [facility]P D[facility]at[facility] [address] [phone] Liborio Pardo MD [address] [place] [address] 02/03/2026 1:00 PM EDT Office Visit [facility] [address] [place] [address] Michaela Palacio MD [address] [place] [address] documented as of this encounter [...] AM EDT) CASE REPORT Surgical Pathology Case: [id number] Authorizing Provider: Dennis Mak MD Collected: 04/15/2020 1020 Ordering Location: [facility] Received: 04/15/2020 1542 Pathologist: Dontae Scott MD Specimens: A) - Small Intestine, Duodenum B) - Large Intestine, Left/Descending Colon C) - Large Intestine, Rectum D) - Large Intestine, Rectum 04/19/2020 8:33 AM EDT [facility] Friday LABORATORY CLINICAL HISTORY Iron deficiency anemia. A 3 cm mass in the rectosigmoid junction and a 1 cm polyp in the rectum. 04/19/2020 8:33 AM EDT [facility] Friday LABORATORY FINAL DIAGNOSIS A) Duodenum, distal, biopsy: [...] with endoscopy findings. 04/19/2020 8:33 AM EDT [facility] Friday LABORATORY at 0833 EDT COMMENT Parts C and D were reviewed by additional departmental pathologist with diagnostic agreement.EK Dr. Dennis Mak was notified of this result via Perfect[employer] text message on 04/19/2020 at 8:32 am. 04/19/2020 8:33 AM EDT [facility] GROSS DESCRIPTION Part A) Received in formalin [...] one cassette. /ZN 04/19/2020 8:33 AM EDT [facility] MICROSCOPIC DESCRIPTION Microscopic examination is performed and the findings corroborate the diagnosis. 04/19/2020 8:33 AM EDT [facility] FLOW CYTOMETRY SUMMARY 04/19/2020 8:33 AM EDT [facility] SPECIAL STAINS 04/19/2020 8:33 AM EDT [facility] EMBEDDED IMAGES 04/19/2020 8:33 AM EDT [facility] Tissue DUODENAL STRUCTURE / Unknown 04/15/2020 [...] Dennis Mak MD PATHOLOGY ORDERABLES Final Result [facility] [address] [place] [address] [address] documented in this encounter Visit Diagnoses Diagnosis Iron deficiency anemia, unspecified Diaphragmatic hernia without obstruction or gangrene Diaphragmatic hernia without mention of obstruction or gangrene Diverticulosis of large intestine without perforation or abscess without bleeding Diverticulosis of colon (without mention of hemorrhage) Polyp of colon Benign neoplasm of colon documented in this encounter Care Teams [employer] Relationship Specialty Start Date End Date Benita Infante [address] [place] [address] [address] [facility] [address] PCP - General 07/10/10 Dennis Mak MD [address] [place] [address] [address] [place] [address] Internal Medicine-Gastroenterology 07/14/13 [place] [address] [place] [phone] Internal Medicine-Rheumatology 02/20/23 documented as of this encounter
--- OUTSIDE RECORDS SUMMARY | 2025-09-21 10:00 | XMS_ITS | Clinical Summary ---
Author Organization [facility] Address [address] [place], [place] [address] Care Team Providers Care Loading Shovel Oiler Name Role Phone Nonstaff, Referring MD Primary Care Provider [phone] Dwain Choi MD Unavailable [phone] Allergies Active Allergy Reactions Criticality Noted [...] series) 2030 Medical Devices Implanted Type Area Fudger Device Identifier Shelf Expiration Date Model / Serial / Lot Scr Canc Acetab 6.5x40mm Implanted:Qty: 1 on 2013 by Dwain Choi MD at [facility] Left: Hip * J \T\ J DEPUY 12/11/2022 [id number] / / [id number] Head Fem Cocr 10/24 28mm+5 Implanted:Qty: 1 on 2013 by Dwain Choi MD at [facility] Left: Hip * J \T\ J DEPUY 06/10/2016 1365-12-000 / / [id number] Stem Fem Std Collar Corail 11 Implanted:Qty: 1 on 2013 by Dwain Choi MD at [facility] Left: Hip * J \T\ J DEPUY [id number] / / [id number] Eliminator [place] H Pos Stop Implanted:Qty: 1 on 2013 by Dwain Choi MD at [facility] Left: Hip * J \T\ J DEPUY 11/10/2022 [id number] / / [id number] Cup Acetab Sector 50mm Implanted:Qty: 1 on 2013 by Dwain Choi MD at [facility] Left: Hip * J \T\ J DEPUY 12/11/2022 1217-22-050 / / [id number] Swain Altrx Polyethylene Acetabular Liner Neutral 28mm Id X 50mm Od Implanted:Qty: 1 on 2013 by Dwain Choi MD at [facility] Left: Hip * USE JJ DEPU 05/10/2016 1221-28-050 / / [id number] Hip Total Con Tier 2 Depuy Implanted:Qty: 1 on 2013 by Dwain Choi MD at [facility] Left: Hip * J \T\ J DEPUY HIPS TIER 2 / / Insurance AETNA AETNA Advance Directives For more information, please contact: [phone] * Full Code (Latest Code Status on File) Date Activated Date Inactivated Comments 2013 3:09 PM 01/24/2013 10:13 PM Care Teams Loading Shovel Oiler Relationship Specialty Start [place] [address] [place] [address] PCP - General Family Medicine 01/08/13 Dwain Choi MD [address] [place], [place] [id number] Orthopedic Surgery 11/18/22
--- OUTSIDE RECORDS SUMMARY | 2025-09-21 10:01 | XMS_ITS | Encounter Summary ---
Author Organization [place] [address] Care Team Providers Care Pet Training Instructor Name Role Phone Benita Infante Primary Care Provider [phone] Dennis Mak MD Unavailable [phone] Michaela Palacio MD Unavailable [phone] Encounter Details Date Type Department Care Team (Late st Contact Info) Description 04/06/2025 Treatment [facility] [address] [address] Elizabeth Franklin MA Social History [...] 11:00 AM EST Office Visit [facility]ne[facility] [address] [address] Francie Grande MD [address] [place] [address] 01/21/2026 10:00 AM EDT Office Visit [facility] D[facility]at[facility] [address] [phone] Liborio Pardo MD [address] [place] [address] 02/03/2026 1:00 PM EDT Office Visit [facility] [address] [place] [address] Michaela Palacio MD [address] [place] [address] documented as of this encounter Visit Diagnoses Not on filedocumented in this encounter Care Teams Pet Training Instructor Relationship Specialty Start Date End Date Benita Infante [address] [place] [address] PCP - General 07/10/10 Dennis Mak MD [address] [place] [address] Internal Medicine-Gastroenterology 07/14/13 [place] [address] [place] [phone] Internal Medicine-Rheumatology 02/20/23 documented as of this encounter
--- OUTSIDE RECORDS SUMMARY | 2025-09-21 10:01 | XMS_ITS | Encounter Summary ---
Author Organization [facility] Address One [facility] [place] [address] Care Team Providers Care Surface Supply Breathing Apparatus Name Role Phone Benita Infante Primary Care Provider [phone] Dennis Mak MD Unavailable [phone] Michaela Palacio MD Unavailable [phone] Encounter Details Date Type Department Care Team (Late st Contact Info) Description 06/02/2020 Orders Only [facility] [place] [address] Manuel Brito MD Social History [...] 11:00 AM EST Office Visit [facility] Uro[facility]ne[facility] [address] [address] Francie Grande MD [address] [place] [address] 01/21/2026 10:00 AM EDT Office Visit [facility] D[facility]at[facility] [address] [place] [address] [address] Liborio Pardo MD [address] [facility] [place] [address] 02/03/2026 1:00 PM EDT Office Visit [facility] [address] [place] [address] Michaela Palacio MD [address] [place] [address] documented as of this encounter [...] MLH1 in formalin-fixed paraffin-embedded tissue sections. A polymerRavgen y based system was used for detection. MLH1 (Disclaimer) = MMR references ranges are based on SpotFodo` internal validation, and we recommend cases with equivocal staining be confirmed with microsatellite instability (MSI) testing. MLH1 (Control Statement) = The digitized slide(s) was/were adequate for quantitative image analysis. All controls were reviewed and showed appropriate positive and negative immunoreactivity. MLH1 (Image Analysis Statement) = Whole slide image capture was performed with the [employer] ScanScope and quantitative computer-assisted image analysis using [employer] software. MSH2 (Intended Use) = Mismatch repair [...] MSH2 in formalin-fixed paraffin-embedded tissue sections. A polymerRavgen y based system was used for detection. MSH6 [...] MSH6 in formalin-fixed paraffin-embedded tissue sections. A polymerPlaydemic based system was used for detection. PMS2 [...] PMS2 in formalin-fixed paraffin-embedded tissue sections. A polymerPlaydemic based system was used for detection. [facility] 06/02/2020 1:51 PM EDT Narrative [facility] - 06/13/2020 1:22 PM EDT Requesting Provider: Gonzalez Michellebustermarcelle Hollingsworth Specimen = [id number] us Manuel Brito MD PATHOLOGY ORDERABLES Final Res ult [facility] [address] [place] [address] documented in this encounter Visit Diagnoses Not on filedocumented in this encounter Care Teams Surface Supply Breathing Apparatus Relationship Specialty Start Date End Date Benita Infante [address] [facility] [address] [place] [address] PCP - General 07/10/10 Dennis Mak MD [address] [facility] [address] [place], [place] [address] Internal Medicine-Gastroenterology 07/14/13 Michaela Palacio MD [address] [place] [address] Internal Medicine-Rheumatology 02/20/23 documented as of this encounter
--- OUTSIDE RECORDS SUMMARY | 2025-09-21 10:02 | XMS_ITS | Patient Health Record ---
Author Organization [facility] Address 12[address] [facility] [address] [id number] Care Team Providers Care Exterminator Helper Name Role Phone Benita Infante Primary Care Provider [phone] Neal Gonzalez Unavailable [phone] FrantzJudit candelaria Unavailable [phone] Allergies Allergen (clinical drug ingredient) Drug/Non Drug Allergy documented on EMR Reaction Allergy Type Onset Date Status Decongestant Unknown Drug Allergy Acti ve losartan Losartan Potassium dizziness Drug Allergy Active triamcinolone Nasacort Allergy 24HR Unknown Drug Allergy Active morphine Morphine Unknown Drug Allergy Active Results Component Value Reference Range Notes P-Potassium Reviewed date:04/07/2025 04:09:45 PM Interpretation:3.8 Performing Lab: Notes/Report: Test performed by [employer] [address] [place], [place] [address] [address] [place] , [address], [place] [address] Bran Underwood MD, Student Finance Specialist CLIA: [id number] Potassium 3.8 3.5-5.3 mmol/L Bone density Reviewed date:07/02/2025 05:41:33 PM Interpretation:osteoporosis, osteopenia Performing Lab: Notes/Report: osteoporosis, osteopenia Mammogram Reviewed date:05/27/2025 09:19:14 AM Interpretation:Negative Performing Lab: Notes/Report: Negative result neg P-Culture, Urine (Not yet re viewed by provider) Interpretation: Performing Lab: Notes/Report: Test performed by [employer] [address] [place], [place] [address] [address], [address], [place] [address] Bran Underwood MD, Student Finance Specialist CLIA: [id number] Specimen Source Urine - Void Culture, Urine See Below See Microbiol ogy Report Proteus mirabilis >100,000 CFU/ml Prot eus mirabilis Sensitivity Panel See Below Organism P.mirab Antibiotic INTERP Amikacin S Ampicillin S Aztreonam S Cefepime [...] 1.015 Ketone neg Bili neg Gluc neg H-Ova + Parasite Exam Reviewed date:06/04/2025 [...] OPEXR1 a parasitic infection. OPEXR1 Performed at: [facility] OPEXR1 [address] [place], [place] [id number] OPEXR1 Escort Service Attendant: Roger Bosch PhD, Phone: [phone] OPEXR1 Comment H-Culture STOOL Reviewed date:06/04/2025 03:50:12 PM Interpretation:Negative Performing Lab: Notes/Report: STOOLCULS Final report STOOLCULR1 No Salmonella or Shigella recovered. STOOLCULR1 Comment CAMPCUL Final report CCRES1 No Campylobacter spe cies isolated. CCRES1 Comment ECSTEIA Performed at: [facility]STE[facility] [address] [place], [place] [id number] ECSTEIA Escort Service Attendant: Roger Bosch PhD, Phone: [phone] ECSTEIA Negative CBC Venipuncture (in house) Reviewed date:04/23/2025 12:11:04 [...] Interpretation:1355 Performing Lab: Notes/Report: Test performed by [employer] [address] [place] [address] , [address], [place] [address] Bran Underwood MD, Student Finance Specialist CLIA: [id number] Vitamin B12 4813 782-5660 pg/mL P-Comprehensive Metabolic Pa lei (CMP) Reviewed date:04/23/2025 12:11:04 PM Interpretation:Normal Performing Lab: Notes/Report: Test performed by [employer] [address] [place], [place] [address] [place] , [address], [place] [address] Bran Underwood MD, Student Finance Specialist CLIA: [id number] Sodium 141 135-145 mmol/L Potassium 3.7 3.5-5.3 [...] Interpretation:Normal Performing Lab: Notes/Report: Test performed by [employer], [address] [place] [address] , [address] , [place] [address] Bran Underwood MD, Student Finance Specialist CLIA: [id number] Cholesterol 167 <200 mg/dL Triglycerides 92 <150 [...] Interpretation:Normal Performing Lab: Notes/Report: Test performed by [employer] [address] [place], [place] [address] [address] , [place] [address] Bran Underwood MD, Student Finance Specialist CLIA: [id number] TSH reflex to FT4 0.57 0.43-5.25 mU/L P-Vitamin D 25-Hydroxy Reviewed date:04/23/2025 12:11:04 PM Interpretation:Normal Performing Lab: Notes/Report: Test performed by [employer] [address] [place] [address] , [address], [place] [address] Bran Underwood MD, Student Finance Specialist CLIA: [id number] Vitamin D 25-Hydroxy 43.4 30.0-100.0 ng/mL Interpretation of Vitamin D 25 [place]: < 20 ng/mL - Deficiency 20 - 29 ng/mL - Insufficiency 30 - 100 ng/mL - Sufficiency > 100 ng/mL - Super-therapeutic- toxicity may occur above this level. Clinical correlation required. P-Comprehensive Metabolic Pa lei (CMP) Reviewed date:08/17/2025 01:47:45 PM Interpretation:Normal Performing Lab: Notes/Report: Test performed by [employer] [address] [place], [place] [address] [place] [address], [place] [address] Bran Underwood MD, Student Finance Specialist CLIA: [id number] Sodium 140 135-145 mmol/L Potassium 3.7 3.5-5.3 [...] Interpretation:Normal Performing Lab: Notes/Report: Test performed by [employer] [address] [place] [address] , [facility] [place] [address] Bran Underwood MD, Student Finance Specialist CLIA: [id number] Ferritin 88.9 13.0-301.0 ng/mL P-Iron Reviewed date:08/17/2025 01:47:45 PM Interpretation:Normal Performing Lab: Notes/Report: Test performed by [employer] [address] [place] [address] , [place] [address] Bran Underwood MD, Student Finance Specialist CLIA: [id number] Iron 67 37-145 ug/dL P-Vitamin D 25-Hydroxy Reviewed date:08/17/2025 01:47:45 PM Interpretation:38.7 Performing Lab: Notes/Report: Test performed by [employer] [address] [place] [address] , [place] [address] Bran Underwood MD, Student Finance Specialist CLIA: [id number] Vitamin D 25-Hydroxy 38.7 30.0-100.0 ng/mL Interpretation of Vitamin D 25 [place]: < 20 ng/mL - Deficiency 20 - 29 ng/mL - Insufficiency 30 - 100 ng/mL - Sufficiency > 100 ng/mL - Super-therapeutic- toxicity may occur above this level. Clinical correlation required. P-Magnesium Reviewed date:06/16/2025 08:13:13 AM Interpretation:Normal Performing Lab: Notes/Report: Test performed by [employer] [address] [place] [address] , [place] [address] Bran Underwood MD, Student Finance Specialist CLIA: [id number] Magnesium 2.0 1.6-2.4 mg/dL P-Potassium Reviewed date:06/16/2025 08:13:20 AM Interpretation:Normal Performing Lab: Notes/Report: Test performed by [employer] [address] [place] [address] [address] , [place] [address] Bran Underwood MD, Student Finance Specialist CLIA: [id number] Potassium 4.0 3.5-5.3 mmol/L P-Iron Reviewed date:06/16/2025 08:13:06 AM Interpretation:Normal Performing Lab: Notes/Report: Test performed by [employer] [address] [place] [address] [address] , [place] [address] Bran Underwood MD, Student Finance Specialist CLIA: [id number] Iron 94 37-145 ug/dL Medications Medication SIG (Take, Route, Frequency, Duration) Notes Start Date End Date Status Cephalexin 500 MG 1 capsule Orally twice a day; Duration: 7 days 09/16/2025 Active Glucosamine Chondroitin MSM DIRECTED Active amLODIPine Besylate 10 MG 1 tablet Orall y Once a day; Duration: 90 days Active Iron 325 (65 Fe) MG 1 tablet Orally Three times a Week Active Lisinopril 40 MG 1 tablet Orally Once a day; Duration: 90 days 07/21/2025 Active Calcium 500 MG 1 TAB TID Activ e Vitamin E 400 UNIT 1 cap(s) orally once a day Active predniSONE 10 MG 1 tablet with food or milk Orally Once a day, prn Active Zseawjlwhl-IWWB-Oxufkawy 50-325-40 MG 1-2 tab(s) orally every 4 hours prn headache 01/26/2025 Active Ibuprofen 800 MG 1 tab(s) orally 3 times a day as needed 06/01/2021 Active Methylsulfonylmethane 500 MG as directed Orally Active Potassium Chloride 20 MEQ/15 ML (10%) MIX 15 MLS IN 4 OUNCES OF LIQUID AND DRINK TWICE A DAY WITH FOOD; Duration: 60 Active Xeljanz XR 11 MG 1 tablet Orally Once a day Active Dicyclomine HCl 10 MG 1 tab(s) orally 4 times a day as needed; Duration: 5 days Active Folic Acid 1 MG 1 tab(s) orally Once a day; Duration: 30 days 12/27/2014 Active Vitamin B-12 1000 MCG 1 tab(s) orally on ce a day; Duration: 30 day(s) Active traMADol HCl 50 MG 1 tab(s) orally every 4 hours Active Immunizations Vaccine Route Administration Date Status Comme nts DT, 7 YEARS OR OLDER Unknown 01/12/1997 Administered Problems Problem Type SNOMED Code ICD Code Onset Dates Problem Status W/U Status Risk Notes Problem Essential hypertension (20482504) Essential (primary) hypertension (I10) Active confirmed Problem Hypokalemia (95715901) Hypokalemia (E87.6) Active confirmed Problem Hypertension (91830215) HTN (hypertension) (I10) Active confirmed Problem Vitamin D deficiency (37164587) Vitamin D deficiency (E55.9) Active confirmed Problem Vitamin B12 deficiency (067723633) Vitamin B12 deficiency (E53.8) Active confirmed Problem Essential hypertension (31885761) Essential hypertension (I10) Active confirmed Problem Memory loss (45395524) Memory loss (R41.3) Active confirmed Problem Chronic post-traumatic headache (484637437) Chronic post-traumatic headache, not intractable (G44.329) Active confirmed Problem Irritable bowel syndrome with diarrhea (362423053) Irritable bowel syndrome with diarrhea (K58.0) Active confirmed Problem Allergic rhinitis (99430509) Allergic rhinitis, unspecified allergic rhinitis type (J30.9) Active confirmed Problem Gastroesophageal reflux disease (939412389) Gastroesophageal reflux disease, esophagitis presence not specified (K21.9) Active confirmed Problem Osteoporosis (17951949) Osteoporosis (M81.0) Active confirmed Problem Hyperlipidaemia (34811570) Hyperlipidemia, unspecified hyperlipidemia type (E78.5) Active confirmed Problem Migraine variant with headache (disorder) (676878901) Migraine headache (G43.909) Active confirmed Problem Body mass index 30.00 to 34.99 (324281356725499) BMI 31.0-31.9,adult (Z68.31) Active confirmed Problem Dyslipidemia (389991318) Dyslipidemia (E78.5) Active confirmed Problem Sciatica (88502609) Right-sided low back pain with right-sided sciatica, unspecified chronicity (M54.41) Active confirmed Problem Esophageal stricture (95833709) Esophageal stricture (K22.2) Active confirmed Problem Migraine without aura, not refractory (406615552) Common migraine without intractability (G43.009) Active confirmed Problem Prolapse of female genital organs (74141517) Female genital prolapse, unspecified type (N81.9) Active confirmed Problem History of malignant neoplasm of rectum (632448400) History of malignant neoplasm of rectum (Z85.048) Active confirmed Vital Signs Heart Rate 94 /min 09/16/2025 Blood pressure diastolic 60 mm Hg 09/16/2025 Height 63 in 09/16/2025 Blood pressure systolic 126 mm Hg 09/16/2025 Weight 172.8 lbs 09/16/2025 BMI 30.61 kg/m2 09/16/2025 Encounters Encounter Location Date Provider Diagnosis [address] [place] [id number] 04/02/2025 Judit Chong Essential hypertensi on I10 [address] [place] [id number] 04/07/2025 Judit Chong Adult general medica l [...] Osteoporosis screening Z13.820 and BMI 31.0-31.9,adult Z68.31 [facility] [place] [address] [address] [place] [id number] 04/09/2025 Judit Chong Essential (primary) hypertension I10 ; Hyperlipidemia, unspecified hyperlipidemia type E78.5 ; Vitamin B12 deficiency E53.8 ; Screening for thyroid disorder Z13.29 and Other fatigue R53.[address] [place] [id number] 04/20/2025 R Evangelista Arelis Blurred vision, left eye H53.8 ; Ankle pain, left M25.572 and BMI 31.0-31.9,adult Z68.31 [facility] [address] [place] [id number] 05/13/2025 Juditeric Chong Dyspepsia R10.13 ; L oose stools R19.5 ; Leg cramps R25.2 and Other fatigue R53.83 [facility] [address] [place] [id number] 06/14/2025 Judit Arlette Hypokalemia E87.6 an d Fatigue R53.83 [facility] [address] [place] [id number] 07/14/2025 Neal Rockton Essential hypertensi on I10 [facility] [address] [place] [id number] 08/12/2025 Judit Arlette Iron deficiency E61. 1 ; Hypokalemia E87.6 ; Vitamin D deficiency E55.9 and Breast abscess N61.1 [facility] [address] [place] [id number] 09/16/2025 Juditeric Chong Urinary tract infect ion, site not specified N39.0 ; Preop general physical exam Z01.818 ; Breast abscess N61.1 and Epigastric pain R10.13 [facility] [address] [place] [id number] 09/06/2025 R Evangelista Arelis [facility] [address] [place] [id number] 09/17/2025 Judit Crowdy [facility] [address] [place] [id number] 01/26/2025 R Evangelista Arelis Migraine headache G43.909 [facility] [address] [place] [id number] 02/02/2025 R Evangelista Arelis Migraine headache G43.909 [facility] [address] [place] [id number] 03/24/2025 R Evangelista Arelis [facility] [address] [place] [id number] 04/08/2025 R Evangelista Arelis [facility] [address] [place] [id number] 04/23/2025 Judit Crowdy [facility] [address] [place] [id number] 06/04/2025 Judit Crowdy [facility] [address] [place] [id number] 06/07/2025 R Evangelista Arelis [facility] [address] [place] [id number] 06/16/2025 Judit Crowdy [facility] [address] [place] [id number] 07/02/2025 Judit Crowdy [facility] [address] [place] [id number] 07/19/2025 Judit Arlette Essential hypertensi on I10 [facility] [address] [place] [id number] 08/16/2025 R Evangelista Arelis [facility] [address] [place] [id number] 08/17/2025 Judit Chong Assessments Encounter Date Diagnosis (ICD Code) Assessment Notes Treatment Notes Treatment Clinical Notes Section Notes 01/26/2025 Migraine headache (ICD-10 - G43.909) 02/02/2025 Migraine headache (ICD-10 - G43.909) 04/02/2025 Essential hypertension (ICD-10 - I10) 04/07/2025 Acute right ankle pain (ICD-10 - M25.571) Will send another request for imaging results to [facility] 04/07/2025 Adult general medical examination (ICD-10 - Z00.00) Patient instructed to return to office Annually for Annual Wellness Visits to include annual screenings of Pain assessment, Functional Ability assessment, Cognitive Ability assessment, Fall Risk assessment, Depression screening and Bladder control screening. Patient will come back for labs: CBC, CMP, Lipid, TSH with reflex to free T4, Vit B12, Vit D 04/09/2025 Essential (primary) hypertension (ICD-10 - I10) 04/20/2025 Blurred vision, left eye (ICD-10 - H53.8) Recommend she seek formal eye exam with her hunting guide whom she has not seen for a few years. 06/14/2025 Fatigue (ICD-10 - R53.83) 06/14/2025 Hypokalemia (ICD-10 - E87.6) 07/14/2025 Essential hypertension (ICD-10 - I10) 07/19/2025 Essential hypertension (ICD-10 - I10) 08/12/2025 Hypokalemia (ICD-10 - E87.6) 04/20/2025 Ankle pain, left (ICD-10 - M25.572) She follows regularly with a stopper maker in [facility] and will contact his office for appointment to evaluate her ongoing ankle pain. 08/12/2025 Iron deficiency (ICD-10 - E61.1) 09/16/2025 Preop general physical exam (ICD-10 - Z01.818) Patient has not had preop testing at this time. This will need to be reviewed, infections will need to be resolved, and she may need an EGD before surgical clearance can be given. 09/16/2025 Urinary tract infection, site not specified (ICD-10 - N39.0) Will need to have infection cleared before having any surgery. 05/13/2025 Dyspepsia (ICD-10 - R10.13) Patient is going to await pathology reports from Dr. Reilly. If normal, can make referral to Dr. Calderon. 05/13/2025 Loose stools (ICD-10 - R19.5) 05/13/2025 Leg cramps (ICD-10 - R25.2) Will increase potassium to bid as it was on the low end of normal when last checked and recheck labs in a few weeks. 04/09/2025 Hyperlipidemia, unspecified hyperlipidemia type (ICD-10 - E78.5) 09/16/2025 Breast abscess (ICD-10 - N61.1) Will need to have infection cleared before having any surgery. 04/20/2025 BMI 31.0-31.9,adult (ICD-10 - Z68.31) 08/12/2025 Vitamin D deficiency (ICD-10 - E55.9) 04/07/2025 Encounter for screening colonoscopy (ICD-10 - Z12.11) 04/07/2025 Migraine headache (ICD-10 - G43.909) 04/09/2025 Vitamin B12 deficiency (ICD-10 - E53.8) 08/12/2025 Breast abscess (ICD-10 - N61.1) 09/16/2025 Epigastric pain (ICD-10 - R10.13) May need an EGD before having foot surgery. 05/13/2025 Other fatigue (ICD-10 - R53.83) Will [...] + Parasite Exam 05/13/2025 H-Culture STOOL 05/13/2025 P-Culture, Urine 09/16/2025 Insurance Providers Payer Name Payer Address Payer Phone Subscriber Number Group Number Insured Name Patient Relationship to Insured Coverage Start Date Coverage End Date [employer] (MEDICARE) [address] [address] [place] [address] [id number] YULISA NAQVI Spouse - patient is the spouse of the insured [employer] [address] [place] [id number] YULISA NAQVI Spouse - patient is the [...] hip replacement 01/23/13 right hip replacement 05/19/19 [facility]: Rectal cancer removed 05/12 colonoscopy 08/14/2021 Hospitalization History Reason Date(Month/Year) same above
--- OUTSIDE RECORDS SUMMARY | 2025-09-21 10:03 | XMS_ITS | Encounter Summary ---
Author Organization [place] [address] Care Team Providers Care Chemistry Manager Name Role Phone Benita Infante Primary Care Provider [phone] Dennis Mak MD Unavailable [phone] Michaela Palacio MD Unavailable [phone] Encounter Details Date Type Department Care Team (Late st Contact Info) Description 08/12/2013 Orders Only [facility] Gastro [facility] [address] [facility] [address] [place] [address] Dennis Mak MD [address] [place] [address] Social History Tobacco Use Types Packs/Day Years [...] 11:00 AM EST Office Visit [facility] Urogynecology [address] [address] Francie Grnade MD [address] [place] [address] 01/21/2026 10:00 AM EDT Office Visit [facility] Dermatology [facility] [address] [place] [address] Liborio Pardo MD [address] [place] [address] 02/03/2026 1:00 PM EDT Office Visit [facility] [address] [place] [address] Michaela Palacio MD [address] [place] [address] documented as of this encounter Procedures Procedure Name Priority Date/Time Associated Diagnosis Comments GMED COLONOSCOPY Routine 08/12/2013 12:0 0 AM EDT documented in this encounter Results * GMED COLONOSCOPY (08/12/2013 12:00 AM EDT) 08/12/2013 Impressions [facility] - 08/12/2013 7:44 AM EDT Polyps [...] Result [facility] [address] [place] [address] documented in this encounter Visit Diagnoses Not on filedocumented in this encounter Care Teams Chemistry Manager Relationship Specialty Start Date End Date Benita Infante [address] [facility] [facility] [place] [address] PCP - General 07/10/10 Dennis Mak MD [address] [place] [address] Internal Medicine-Gastroenterology 07/14/13 Michaela Palacio MD [address] [place] [address] Internal Medicine-Rheumatology 02/20/23 documented as of this encounter
--- OUTSIDE RECORDS SUMMARY | 2025-09-21 10:03 | XMS_ITS | Encounter Summary ---
Author Organization [place] [address] Care Team Providers Care Desk Clerk Name Role Phone Benita Infante Primary Care Provider [phone] Dennis Mak MD Unavailable [phone] Michaela Plaacio MD Unavailable [phone] Encounter Details Date Type Department Care Team (Late st Contact Info) Description 08/14/2021 Lab Requisition [facility] [place] [address] Dennis Mak MD [address] [place] [address] Personal history of other malignant [...] AM EST Office Visit [facility] Urogynecology [address] [address] Francie Grande MD [address] [place] [address] 01/21/2026 10:00 AM EDT Office Visit [facility] Dermatology [facility] [address] [address] Liborio Pardo MD [address] [place] [address] 02/03/2026 1:00 PM EDT Office Visit [facility] [address] [place] [address] Michaela Palacio MD [address] [place] [address] documented as of this encounter Procedures Procedure Name Priority Date/Time Associated Diagnosis Comments PATHOLOGY TISSUE REQUEST Routine 08/14/2021 11:00 AM EDT Personal history of other malignant neoplasm of large intestine Polyp of colon documented in this encounter Results * PATHOLOGY TISSUE REQUEST (08/14/2021 11:00 AM EDT) CASE REPORT Surgical Pathology Case: [id number] Authorizing Provider: Dennis Mak MD Collected: 08/14/2021 1100 Ordering Location: ED LABORATORY Received: 08/14/2021 1544 Pathologist: Manuel Brito MD Specimen: Large Intestine, Left/Descending Colon 08/15/2021 11:55 AM EDT [facility] FINAL DIAGNOSIS Descending Colon Polyp x 2: - Sessile Serrated Polyps, Negative For High-Grade Dysplasia. 08/15/2021 11:55 AM EDT [facility] at 1155 EDT GROSS DESCRIPTION Received [...] 08/14/2021 3:52 PM 08/15/2021 11:55 AM EDT [facility] MICROSCOPIC DESCRIPTION Microscopic examination is performed and the findings corroborate the diagnosis. 08/15/2021 11:55 AM EDT [facility] EMBEDDED IMAGES [facility] DESCEND[facility] STRUCT[facility] / Unknown 08/14/2021 11:00 AM EDT 08/14/2021 3:44 PM EDT Dennis Mak MD PATHOLOGY ORDERABLES Final Result [facility] [address] [facility] [place] [id number] [facility] [address] [place], [place] [id number] documented in this encounter Visit Diagnoses Diagnosis Personal history of other malignant neoplasm of large intestine Polyp of colon Benign neoplasm of colon documented in this encounter Care Teams Desk Clerk Relationship Specialty Start Date End Date [facility]ita [facility] [address] [place] [address] PCP - General 07/10/10 Dennis Mak MD [address] [place] [address] [address] [place] [address] Internal Medicine-Gastroenterology 07/14/13 [place] [address] [place] [phone] Internal Medicine-Rheumatology 02/20/23 documented as of this encounter
--- OUTSIDE RECORDS SUMMARY | 2025-09-21 10:03 | XMS_ITS | Clinical Summary ---
Author Organization [facility] Address [facility] [place] [address] Care Team Providers Care Agitator Operator Name Role Phone Unavailable Primary Care [...]
--- OUTSIDE RECORDS SUMMARY | 2025-09-21 10:03 | XMS_ITS | Encounter Summary ---
Author Organization [facility] [place] [address] Care Team Providers Care Fluoroscope Operator Name Role Phone Benita Infante Primary Care Provider [phone] Dennis Mak MD Unavailable [phone] Michaela Palacio MD Unavailable [phone] Encounter Details Date Type Department Care Team (Late st Contact Info) Description 08/14/2021 Orders Only SEP Gastro [facility] [address] [facility] [address] [place] [address] Dennis Mak MD [address] [facility] [place] [address] Social History Tobacco Use Types Packs/Day Years [...] 11:00 AM EST Office Visit [facility] Urogynecology [address] [address] Francie Grande MD [address] [place] [address] 01/21/2026 10:00 AM EDT Office Visit [facility] Dermatology [facility] [address] [address] Liborio Pardo MD [address] [facility] [place] [address] 02/03/2026 1:00 PM EDT Office Visit [facility] [address] [place] [address] Michaela Palacio MD [address] [place] [address] documented as of this encounter Procedures Procedure Name Priority Date/Time Associated Diagnosis Comments GMED COLONOSCOPY Routine 08/14/2021 11:0 0 AM EDT documented in this encounter Results * GMED COLONOSCOPY (08/14/2021 11:00 AM EDT) 08/14/2021 11:0 0 AM EDT Impressions [facility] - 08/14/2021 10:57 AM EDT Polyps (3 mm to 4 mm) in the descending colon. (Polypectomy). Previous Surgery in the colon. Plan: Colonoscopy in 3 years. This section is an excerpt of the full report. us Dennis Mak MD GI PROCEDURE ORDERABLES Fin al Result [facility] [address] [place] [id number] documented in this encounter Visit Diagnoses Not on filedocumented in this encounter Care Teams Fluoroscope Operator Relationship Specialty Start Date End Date Benita Infante [address] [place] [address] PCP - General 07/10/10 Dennis Mak MD [address] [place] [address] Internal Medicine-Gastroenterology 07/14/13 Michaela Palacio MD [address] [place] [address] Internal Medicine-Rheumatology 02/20/23 documented as of this encounter
--- OUTSIDE RECORDS SUMMARY | 2025-09-21 10:03 | XMS_ITS | Encounter Summary ---
Author Organization [facility] [place] [address] Care Team Providers Care Type Rolling Machine Operator Name Role Phone Benita Infante Primary Care Provider [phone] Dennis Mak MD Unavailable [phone] Michaela Palacio MD Unavailable [phone] Encounter Details Date Type Department Care Team (Late st Contact Info) Description 08/12/2013 Orders Only [facility] Gastro [facility] [address] [facility] [address] [place] [address] Dennis Mak MD [address] [place] [address] Social History Tobacco Use Types Packs/Day Years [...] AM EST Office Visit [facility] Urogynecology [address] [address] Francie Grande MD [address] [place] [address] 01/21/2026 10:00 AM EDT Office Visit [facility] Dermatology [facility] [address] [place] [address] Liborio Pardo MD [address] [place] [address] 02/03/2026 1:00 PM EDT Office Visit [facility] [address] [place] [address] Michaela Palacio MD [address] [place] [address] documented as of this encounter Procedures Procedure Name Priority Date/Time Associated Diagnosis Comments GMED EGD Routine 08/12/2013 7:30 AM EDT documented in this encounter Results * GMED EGD (08/12/2013 7:30 AM EDT) 08/12/2013 7:30 AM EDT Impressions [facility] - 08/12/2013 7:47 AM EDT Normal stomach. Normal duodenum. Normal mucosa in the whole esophagus. (Dilation). Plan: Follow-up as needed This section is an excerpt of the full report, which can be found by clicking the hyperlink. us Dennis Mak MD GI PROCEDURE ORDERABLES Fin al Result [facility] [address] [place] [address] documented in this encounter Visit Diagnoses Not on filedocumented in this encounter Care Teams Type Rolling Machine Operator Relationship Specialty Start Date End Date Benita Infante [address] [place] [facility] [address] [facility] [address] PCP - General 07/10/10 Dennis Mak MD [address] [facility] [address] [place] [address] Internal Medicine-Gastroenterology 07/14/13 Michaela Palacio MD [address] [place] [address] Internal Medicine-Rheumatology 02/20/23 documented as of this encounter
--- OUTSIDE RECORDS SUMMARY | 2025-09-21 10:03 | XMS_ITS | Continuity of Care Document ---
Author Organization [facility] Address [address] [place] [address] Phone Care Team Providers Care Mill Tender Washing Name Role Phone Benita Infante Primary Care Provider [phone] Dennis Mak MD Unavailable [phone] Michaela Palacio MD Unavailable [phone] Encounters Date Type Department Care Team Description 08/05/2025 2:00 PM EDT Office Visit [facility] [address] [place] [address] Michaela Palacio MD Rheumatoid arthritis of multiple sites 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 (HCC) (Primary Dx); Drug therapy; Primary generalized (osteo)arthritis; Fibromyalgia 04/06/2025 Orders Only [facility] [address] [address] Lidia Emanuel MA 04/06/2025 Orders Only [facility] [address] [address] Con Farris DO 04/06/2025 Telephone [facility] [address] [address] Elizabeth Franklin MA Medication Management 04/06/2025 Treatment [address] [place] [address] Elizabeth Franklin MA 04/05/2025 Telephone [address] [place] [address] Catina Acosta CCMA Results 04/04/2025 Results Follow-Up [address] [place] [address] Tim Mcgee MD XR FOOT RIGHT AP LATERAL AND OBLIQUE 04/04/2025 5:15 PM EDT - 04/04/2025 11:59 PM EDT Hospital Encounter [facility] [address] [place] [address] Acute right ankle pain; Foot pain, right Discharge Disposition: Home or Self Care 04/04/2025 4:15 PM EDT Office Visit [place] [place] [address] Tim Mcgee MD Acute right ankle pain (Primary Dx); Foot pain, right; Acute non-recurrent maxillary sinusitis 03/09/2025 Telephone [facility] [address] [place] [address] Michaela Palacio MD Medication Management (Xeljanz) 02/21/2025 Results Follow-Up [facility] [address] [place] [address] Michaela Palacio MD CBC WITH DIFF, SEDIMENTATION RATE AUTOMATED, C-REACTIVE PROTEIN, Additional followed-up results: 3 02/19/2025 11:40 AM EDT - 02/19/2025 11:59 PM EDT Hospital Encounter [facility] [address] [place] [address] Rheumatoid arthritis of multiple sites 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 (HCC); Drug therapy Discharge Disposition: Home or Self Care 02/08/2025 Refill [facility] [address] [facility] [place] [address] Michaela Palacio MD Medication Refill 02/04/2025 Telephone [facility] [address] [place] [address] Michaela Palacio MD Medication Management (Xeljanz) 02/04/2025 2:00 PM EDT Office Visit [facility] [address] [place] [address] Michaela Palacio MD Rheumatoid arthritis of multiple sites 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 (HCC) (Primary Dx); Drug therapy; Primary generalized (osteo)arthritis; Fibromyalgia 01/26/2025 Refill [facility] [address] [place] [address] Michaela Palacio MD Medication Refill 01/18/2025 Telephone [facility] [address] [place] [address] Michaela Palacio MD Medication Management (Xeljanz) 12/31/2024 Refill [facility] [address] [place] [address] Michaela Palacio MD Medication Refill 09/18/2024 Refill [facility] [address] [place] [address] Michaela Palacio MD Medication Refill 09/03/2024 Refill [facility] [address] [place] [address] Michaela Palacio MD Medication Refill 08/10/2024 2:00 PM EDT Office Visit [facility] [address] [place] [address] Michaela Palacio MD Rheumatoid arthritis of multiple sites 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 (HCC) (Primary Dx); Drug therapy; Primary generalized (osteo)arthritis; Fibromyalgia 07/01/2024 Refill [facility] [address] [place] [address] Michaela Palacio MD Medication Refill 06/17/2024 Refill [facility] [address] [place] [address] Michaela Palacio MD Medication Refill 04/16/2024 Refill [facility] [address] [facility] [place] [address] Michaela Palacio MD Medication Refill 04/10/2024 Telephone [facility] [address] [place] [address] [place] [address] Morgan Lisa, Pearl Results (/) 04/02/2024 1:09 PM EDT - 04/02/2024 11:59 PM EDT Hospital Encounter [address] [address] Rashad Timmons PA-C Lung nodule Discharge Disposition: Home or Self Care 02/01/2024 Refill [facility] [address] [place] [address] Michaela Palacio MD Medication Refill 01/03/2024 Orders Only [facility] [address] [place] [address] [place] [address] Rashad Timmons PA-C Lung nodule (Primary Dx) 01/02/2024 2:00 PM EST Office Visit [facility] [address] [place] [address] Michaela Palacio MD Rheumatoid arthritis of multiple sites 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 (HCC) (Primary Dx); Drug therapy; Primary generalized (osteo)arthritis; Fibromyalgia 12/27/2023 2:01 PM EST - 12/27/2023 11:59 PM EST [facility] [place] [address] Rashad Timmons PA-C Personal history of colon cancer Discharge Disposition: Home or Self Care 12/19/2023 Telephone [facility] [address] [place] [address] Michaela Palacio MD Medication Management 12/12/2023 Orders Only [facility] [address] [place] [address] Michaela Palacio MD Rheumatoid arthritis of multiple sites 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 (HCC) (Primary Dx); Drug therapy 12/12/2023 Telephone [facility] [address] [place] [address] Michaela Palacio MD Medication Management 12/05/2023 Orders Only [facility] [address] [place] [address] Michaela Palacio MD 12/05/2023 Telephone [facility] [address] [place] [address] Michaela Palacio MD Medication Management 11/25/2023 Telephone [facility] [place] [facility] [address] [place] [address] Jose Guardado DPM Other (Lapiplasty procedure/) 11/19/2023 Refill [facility] [address] [place] [address] Daily Bravo MA Medication Refill 09/09/2023 Refill [facility] [address] [place] [address] Chio Meraz MA Medication Refill 09/04/2023 Telephone [facility] [address] [place] [address] Michaela Palacio MD Medication Refill 09/03/2023 Refill [facility] [address] [place] [address] Michaela Palacio MD Medication Refill 09/03/2023 9:54 AM EDT - 09/03/2023 11:59 PM EDT Hospital Encounter [facility] [address] Rashad Timmons PA-C Personal history of colon cancer (Primary Dx); Urinary frequency Discharge Disposition: Home or Self Care 08/02/2023 2:53 PM EDT Anesthesia Event [facility] END[facility] [place] [address] Reza Sky, [place] Joseph, MORGAN 08/02/2023 Travel 08/02/2023 10:57 AM EDT - 08/02/2023 4:58 PM EDT Emergency [facility] [place] [address] Rip Meyer MD Food impaction of esophagus, initial encounter (Primary Dx) 08/02/2023 Telephone [facility] [address], [address] [address] Dennis Mak MD Dysphagia 06/27/2023 2:40 PM EDT Office Visit [facility] [address] [place] [address] Michaela Palacio MD Rheumatoid arthritis of multiple sites 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 (HCC) (Primary Dx); Primary generalized (osteo)arthritis; Fibromyalgia; Drug therapy 06/12/2023 Refill [facility] [address] [place] [address] Chio Meraz MA Medication Refill 05/16/2023 Travel 05/16/2023 1:48 PM EDT - 05/16/2023 11:59 PM EDT Hospital Encounter [facility] Mammography [phone] Benita Infante Visit for screening mammogram Discharge Disposition: Home or Self Care 02/21/2023 2:40 PM EDT Office Visit [facility] [address] [place] [address] Michaela Palacio MD Rheumatoid arthritis of multiple sites 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 (HCC) (Primary Dx); Primary generalized (osteo)arthritis; Fibromyalgia 01/29/2023 10:00 AM EDT Office Visit [facility] [address] [facility] [place] [address] Rashad Timmons PA-C History of cancer of rectosigmoid junction (Primary Dx) 12/25/2022 Travel 12/25/2022 4:18 PM EST - 12/25/2022 11:59 PM EST Hospital Encounter [facility] [address] [place] [address] Rashad Timmons PA-C Lung nodule Discharge Disposition: Home or Self Care 12/20/2022 Abstract [facility] [address] [place] [address] Michaela Palacio MD 12/20/2022 Orders Only [facility] [address] [place] [address] Michaela Palacio MD 12/10/2022 Orders Only [facility] [address] [place] [address] Michaela Palacio MD 09/10/2022 Travel 09/10/2022 2:36 PM EDT - 09/10/2022 11:59 PM EDT Hospital Encounter [facility] [address] [place] [phone] Personal history of colon cancer Discharge Disposition: Home or Self Care 09/09/2022 Orders Only [facility] [address] [facility] [address] [place] [address] Rashad Timmons PA-C Lung nodule (Primary Dx) 08/21/2022 10:15 AM EDT Office Visit [facility] [address] [facility] [address] [place] [address] Rashad Timmons PA-C Personal history of colon cancer (Primary Dx); Abnormal CT scan, lung 08/10/2022 Telephone [facility] ECHO VAS ATTN: Appointments in this department are performed at various locations in the community on our Cardiovascular mobile health unit. You can look online to verify your site or call [phone] [address] Cherrie Begum, RN Results 07/26/2022 Travel 07/26/2022 10:08 AM EDT - 07/26/2022 11:59 PM EDT Hospital Encounter [facility] [address] [place] [phone] Rashad Timmons PA-C History of cancer of rectosigmoid junction Discharge Disposition: Home or Self Care 06/22/2022 Telephone [facility] Gen Surg [facility] [address] [facility] [address] [place] [address] Colon Brianna Mar RMPearl Appointment Needed 03/05/2022 Travel 03/05/2022 10:14 AM EDT - 03/05/2022 11:59 PM EDT Hospital Encounter [facility] Mammography [address] [place] [phone] Benita Infante Encounter for screening mammogram for malignant neoplasm of breast Discharge Disposition: Home or Self Care 12/21/2021 Travel 12/21/2021 10:35 AM EST - 12/21/2021 11:59 PM EST Hospital Encounter [facility] [place] [address] Personal history of malignant neoplasm of rectum, rectosigmoid junction, and anus Discharge Disposition: Home or Self Care 12/11/2021 3:45 PM EST Office Visit [facility] [address] [place] [address] [place] [phone] Rashad Timmons PA-C History of cancer of rectosigmoid junction (Primary Dx) 08/17/2021 Travel 08/17/2021 11:41 AM EDT - 08/17/2021 11:59 PM EDT Hospital Encounter [facility]ULAR [facility] [place] [address] Judy Gallego APRN Varicose veins of right lower extremity with edema Discharge Disposition: Home or Self Care 08/14/2021 Lab Requisition [facility] [place] [address] Dennis Mak MD Personal history of other malignant neoplasm of large intestine; Polyp of colon 08/14/2021 Orders Only [facility] Gastro CV [address] [facility] [address] [place] [address] Dennis Mak MD 08/11/2021 Travel 08/11/2021 1:35 PM EDT - 08/11/2021 11:59 PM EDT Hospital Encounter [facility] [address] [place] [address] Encounter for screening for COVID-19 Discharge Disposition: Home or Self Care 07/13/2021 1:49 PM EDT - 07/13/2021 11:59 PM EDT Hospital Encounter [facility] [address] [place], [place] [address] History of colon cancer Discharge Disposition: Home or Self Care 07/13/2021 Travel 07/13/2021 12:30 PM EDT Office Visit [facility] [address] [place] [address] Dennis Mak MD History of colon cancer (Primary Dx) 05/05/2021 Travel 05/05/2021 3:45 PM EDT - 05/05/2021 11:59 PM EDT Hospital Encounter [facility] [place] [facility] [address] [place] [address] Left hand pain Discharge Disposition: Home or Self Care 05/03/2021 Travel 05/03/2021 2:00 PM EDT Office Visit [facility] Gen Surg [facility] [address] [facility] [address] [place] [address] Rahsad Timmons PA-C Personal history of malignant neoplasm of rectum, rectosigmoid junction, and anus (Primary Dx) 04/27/2021 Telephone [facility] Gen Surgery [facility] [address] [place] [address] Gonzalez Vargas MD Other 04/26/2021 Travel 04/26/2021 1:34 PM EDT - 04/26/2021 11:59 PM EDT Hospital Encounter [facility] [place] [address] Rashad Timmons PA-C Personal history of malignant neoplasm of rectum, rectosigmoid junction, and anus Discharge Disposition: Home or Self Care 04/12/2021 Telephone [facility] [place] [address] [place] [place] [address] Dennsi Mak MD Colonoscopy 02/09/2021 Travel 02/09/2021 10:55 AM EDT - 02/09/2021 11:59 PM EDT Hospital Encounter [facility] [place] [address] Cristi Sosa MD Breast asymmetry Discharge Disposition: Home or Self Care 02/06/2021 Travel 10/07/2020 Travel 10/04/2020 Telephone [facility] Surgery [place] [address] [place] [address] Lucila Rodgers RMA Orders 09/28/2020 3:04 PM EST - 09/28/2020 11:59 PM EST Hospital Encounter [facility] [address] [place] [address] Personal history of malignant neoplasm of rectum, rectosigmoid junction, and anus Discharge Disposition: Home or Self Care 09/28/2020 Travel 09/28/2020 1:40 PM EST Office Visit [facility] Surg [facility] [address] [facility] [address] [place] [address] Rashad Timmons PA-C Personal history of malignant neoplasm of rectum, rectosigmoid junction, and anus (Primary Dx) 09/26/2020 Travel 08/10/2020 Travel 08/02/2020 Travel 08/02/2020 1:50 PM EDT Office Visit [facility] NPTFTT [address] [place] [address] Cristi Sosa MD Chronic RLQ pain (Primary Dx); Rectosigmoid cancer (HCC) 07/28/2020 10:07 AM EDT - 07/28/2020 11:59 PM EDT Hospital Encounter [facility] [address] [place] [address] Right lower quadrant abdominal pain; Urinary frequency Discharge Disposition: Home or Self Care 07/28/2020 Travel 07/25/2020 Travel 07/22/2020 Travel 07/22/2020 2:00 PM EDT Office Visit [facility] Surg [facility] [address] [facility] [address] [place] [address] Rashad Timmons PA-C Right lower quadrant abdominal pain (Primary Dx); Follow-up examination following surgery; Urinary frequency; History of uterine prolapse 07/14/2020 Telephone [facility] Gen Surg [facility] [address] [facility] [address] [place] [address] Gonzalez Vargas MD Advice Only 06/22/2020 Telephone Adult Med [address] [place] [address] [place] [address] [phone] Rashad Timmons PA-C Results 06/21/2020 10:20 AM EDT - 06/21/2020 11:59 PM EDT Hospital Encounter [facility] [place] [address] Postop check Discharge Disposition: Home or Self Care 06/21/2020 Travel 06/21/2020 9:20 AM EDT Office Visit [facility] Surg [facility] [address] [facility] [address] [place] [address] Gonzalez Vargas MD Postop check (Primary Dx); Rectosigmoid cancer (HCC) 06/02/2020 5:29 AM EDT - 06/04/2020 6:25 PM EDT Hospital Encounter [facility] [address] [place] [address] [place] [address] Gonzalez Vargas MD Rectosigmoid cancer (HCC); Liver lesion; Rectosigmoid cancer (HCC); Liver lesion Discharge Disposition: Home or Self Care 06/02/[address] [facility] [place] [address] Manuel Brito MD 06/02/2020 7:30 AM EDT - 06/02/2020 2:25 PM EDT Surgery EDG [facility] [place] [address] Gonzalez Vargas MD [facility] ROBOTIC LAPAROSCOPY LOW ANTERIOR COLON RESECTION 06/02/2020 7:36 AM EDT Anesthesia Event [facility] [place] [place] [address] Warren Hernandez MD Powell, Jeanne, APRN 06/01/2020 Telephone [facility] Gen Surg [facility] [address] [facility] [address] [place] [address] Nelia Harding RMA Prior Authorization; Surgery 05/31/2020 Travel 05/31/2020 9:00 AM EDT Office Visit [facility] Gen Surg [facility] [address] [facility] [address] [place] [address] Gonzalez Vargas MD Rectosigmoid cancer (HCC) (Primary Dx) 05/29/2020 Travel 05/29/2020 1:15 PM EDT - 05/29/2020 11:59 PM EDT Hospital Encounter [facility] CLAUDIA [address] [place] [address] Covid19, [facility] Irion Ds Pre-op testing; Encounter for laboratory testing for COVID-19 virus Discharge Disposition: Home or Self Care 05/20/2020 12:05 PM EDT - 05/20/2020 11:59 PM EDT Hospital Encounter [facility] [place] [address] Gaby Garcia APRN Discharge Disposition: Home or Self Care 05/20/2020 Travel 05/20/2020 10:45 AM EDT - 05/20/2020 12:04 PM EDT Hospital Encounter [facility] PRE-ADMIT TESTING [facility] [place] [address] Preop testing (Primary Dx); Rectosigmoid cancer (HCC) Discharge Disposition: Home or Self Care 05/16/2020 Telephone [facility] Gastro [facility] [address] [facility] [address] [place] [address] Dennis Mak MD Other 05/13/2020 Travel 05/12/2020 Telephone [facility] Gen Surg [facility] [address] [facility] [address] [place] [address] Mari Hyatt MA Surgery 05/10/2020 Orders Only [facility] Gen Surg [facility] [address] [facility] [address] [place] [address] Nelia Harding Pearl Rectosigmoid cancer (HCC) (Primary Dx); Liver lesion 05/09/2020 Telephone [facility] Gen Surg [facility] [address] [facility] [address] [place] [address] Marion Curtis Pearl Surgery 05/06/2020 Travel 05/06/2020 11:58 AM EDT - 05/06/2020 11:59 PM EDT Hospital Encounter [facility] [place] [place] [address] Discharge Disposition: Home or Self Care 05/05/2020 Travel 04/28/2020 Travel 04/28/2020 8:15 AM EDT - 04/28/2020 11:59 PM EDT Hospital Encounter [facility] [place] [address] Rashad Timmons PA-C Rectosigmoid cancer (HCC) Discharge Disposition: Home or Self Care 04/28/2020 8:14 AM EDT Hospital Encounter [facility] [place] [address] Rashad Timmons PA-C Rectosigmoid cancer (HCC) Discharge Disposition: Home or Self Care 04/27/2020 Telephone Adult Med [address] [place] [address] [place] [address] Rashad Timmons PA-C Follow-up 04/27/2020 Travel 04/26/2020 Travel 04/26/2020 3:40 PM EDT Office Visit [facility] Gen Surg [facility] [address] [facility] [address] [place] [address] Gonzalez Vargas MD Rectosigmoid cancer (HCC) (Primary Dx); Liver lesion 04/20/2020 Travel 04/20/2020 10:33 AM EDT - 04/20/2020 11:59 PM EDT [facility] [address] [place] [address] Dennis Mak MD Polyp of colon, unspecified part of colon, unspecified type Discharge Disposition: Home or Self Care 04/19/2020 Travel 04/15/2020 Telephone [facility] G[facility] [address] [facility] [address] [place] [address] Dennis Mak MD Other 04/15/2020 Lab Requisition [facility] LABORAT[facility] [place] [address] Dennis Mak MD Iron deficiency anemia, unspecified; Diaphragmatic hernia without obstruction or gangrene; Diverticulosis of large intestine without perforation or abscess without bleeding; Polyp of colon 04/15/2020 Orders Only [facility] Gastro [facility]H [address] [facility] [address] [place] [address] Dennis Mak MD 04/15/2020 Travel 04/12/2020 Travel 04/12/2020 11:40 AM EDT Clinical Support [facility] [address] [facility] [address] [place] [address] Lab, Sep Endoscopy Ctr [facility] Encounter for laboratory testing for COVID-19 virus (Primary Dx) 04/11/2020 Telephone [facility] Gastro [facility]H [address] [facility] [address] [place] [address] Dennis Mak MD COVID-19 Rapid Testing 04/08/2020 Travel 02/09/2020 Travel 02/04/2020 Telephone [facility] [address] [place] [address] Dennis Mak MD Reschedule (d/t covid 19) 12/21/2019 Telephone [facility] G[facility] CV [address] [facility] [address] [place] [address] Dennis Mak MD Other 12/02/2019 11:16 AM EST - 12/02/2019 11:59 PM EST Hospital Encounter [facility] [address] [place] [address] Ming Santamaria MD Right shoulder pain, unspecified chronicity Discharge Disposition: Home or Self Care 12/02/2019 11:16 AM EST - 12/02/2019 11:59 PM EST [facility] [address] [place] [address] Ming Santamaira MD Left shoulder pain, unspecified chronicity Discharge Disposition: Home or Self Care 12/02/2019 11:15 AM EST [facility] [address] [place] [address] Ming Santamaria MD Left knee pain, unspecified chronicity Discharge Disposition: Home or Self Care 11/09/2019 Telephone [facility] [address] [facility] [address] [place] [address] Dennis Mak MD Cancellation 09/28/2019 3:30 PM EST - 09/28/2019 11:59 PM EST Hospital Encounter [facility] [place] [address] Iron deficiency anemia, unspecified iron deficiency anemia type Discharge Disposition: Home or Self Care 09/28/2019 2:15 PM EST Office Visit [facility] G[facility] [address] [facility] [address] [place] [address] Dennis Mak MD Iron deficiency anemia, unspecified iron deficiency anemia type (Primary Dx) 09/22/2019 Telephone [facility] Pod[facility]ry [facility] [address] [place] [address] Sydney Connell Scribe Other (Surgery ) 09/22/2019 Telephone [facility] [place] [address] [facility] [address] [place] [address] Jasmyne Chapman, ABR-OE Other (powerstep issue) 09/11/2019 12:30 PM EDT - 09/11/2019 11:59 PM EDT Hospital Encounter [facility] [place] [facility] [address] [place] [address] Cristi Sosa MD Breast mass, right Discharge Disposition: Home or Self Care 09/07/2019 Telephone [facility] NPTFTT [address] [place] [address] Cristi Sosa MD Other (testing) 09/04/2019 1:00 PM EDT - 09/04/2019 11:59 PM EDT Hospital Encounter [facility] [place] [address] Cristi Sosa MD Breast mass, right Discharge Disposition: Home or Self Care 09/03/2019 Orders Only [facility] NPTFTT [address] [place] [address] Jeanne Khan RN Breast mass, right (Primary Dx) 09/03/2019 Orders Only [facility] Podiatry [address] [place] [address] Jose Guardado DPM Hallux valgus of left foot (Primary Dx); Hammer toe of left foot; Exostosis; Rheumatoid arthritis, involving unspecified site, unspecified rheumatoid factor presence (HCC) 09/03/2019 9:40 AM EDT Office Visit [facility] NPTFTT [address] [place] [address] Cristi Sosa MD Well woman exam (Primary Dx); Encounter for screening mammogram for breast cancer; Encounter for screening colonoscopy; Breast mass, right; FHx: BRCA gene positive 08/28/2019 2:20 PM EDT Ancillary Procedure [facility] Podiat[address] [place] [address] Jose Guardado DPM Right foot pain Discharge Disposition: Home or Self Care 08/28/2019 1:35 PM EDT Ancillary Procedure [facility] [address] [place] [phone] Jose Guardado DPM Left foot pain Discharge Disposition: Home or Self Care 08/28/2019 1:15 PM EDT Office Visit [facility] [address] [address] Jose Guardado DPM Left foot pain (Primary Dx); Hallux valgus of left foot; Right foot pain 06/01/2019 Telephone [facility] Neurology [facility] [address] [place] [address] Vikas Burnham MD Other (Neuropsych testing) 05/19/2019 9:31 AM EDT - 05/20/2019 5:45 PM EDT Hospital Encounter EDG [address] [place] [address] [place] [address] Prakash Viramontes MD Discharge Disposition: Home or Self Care 05/19/2019 12:30 PM EDT - 05/19/2019 1:45 PM EDT [facility] [place] [address] Prakash Viramontes MD ARTHROPLASTY, HIP, TOTAL, ANTERIOR (ERICK/LANDY) 05/19/2019 11:52 AM EDT Anesthesia Event EDG PERIOP [facility] Dr[address] [place] [address] Esther Zarate MD Braxton-Brown, Jennifer, APRN 05/07/2019 12:39 PM EDT - 05/07/2019 11:59 PM EDT [facility] [place] [address] Luz Elena Bernard APRN Discharge Disposition: Home or Self Care 05/07/2019 11:52 AM EDT - 05/07/2019 12:38 PM EDT Hospital Encounter EDG LABORATORY [facility] [address] [place] [address] Preop examination (Primary Dx); Post concussion syndrome Discharge Disposition: Home or Self Care 05/07/2019 Travel 05/07/2019 10:30 AM EDT - 05/07/2019 11:51 AM EDT Hospital Encounter EDG PRE-ADMIT TESTING [facility] [place] [address] Encounter for preadmission testing (Primary Dx); Anticoagulation adequate; Preop testing; Primary osteoarthritis of right hip Discharge Disposition: Home or Self Care 05/05/2019 11:00 AM EDT Office Visit [facility] Neurology [facility] [address] [place] [address] Vikas Burnham MD Post concussion syndrome (Primary Dx) 01/28/2019 12:39 PM EDT - 01/28/2019 11:59 PM EDT Hospital Encounter [facility] MRI [address] [address] Ming Santamaria MD Bilateral hip pain Discharge Disposition: Home or Self Care 10/30/2018 2:13 PM EST - 10/30/2018 11:59 PM EST [facility] [address] [place] [address] Ming Santamaria MD Strain of neck muscle, initial encounter; Strain of thoracic region, initial encounter; Strain of lumbar region, initial encounter Discharge Disposition: Home or Self Care 10/30/2018 2:12 PM EST Hospital Encounter [facility] MRI [address] [place] [address] Ming Santamaria MD Strain of neck muscle, initial encounter; Strain of thoracic region, initial encounter; Strain of lumbar region, initial encounter Discharge Disposition: Home or Self Care 10/30/2018 2:00 PM EST - 10/30/2018 2:11 PM EST Hospital Encounter [facility] [address] [place] [address] Ming Santamaria MD Strain of neck muscle, initial encounter; Strain of thoracic region, initial encounter; Strain of lumbar region, initial encounter Discharge Disposition: Home or Self Care 09/18/2018 12:36 PM EST - 09/18/2018 11:59 PM EST Hospital Encounter [facility] [place] [address] Ming Santamaria MD Traumatic injury of head, sequela Discharge Disposition: Home or Self Care 09/18/2018 12:07 PM EST - 09/18/2018 12:35 PM EST Hospital Encounter EDG N[facility] [place] [address] Ming Santamaria MD Discharge Disposition: Home or Self Care 09/18/2018 11:00 AM EST - 09/18/2018 12:06 PM EST Hospital Encounter EDG N[facility] [place] [address] Ming Santamaria MD Low back pain, unspecified back pain laterality, unspecified chronicity, with sciatica presence unspecified Discharge Disposition: Home or Self Care 10/30/2016 10:26 AM EST - 10/30/2016 10:29 AM EST Hospital Encounter EDG D-WING XRAY [facility] [place] [address] Cough Discharge Disposition: Home or Self Care 10/30/2016 10:30 AM EST - 10/30/2016 11:59 PM EST Hospital Encounter EDG PFT LAB [facility] [place] [address] Discharge Disposition: Home or Self Care 06/14/2016 2:59 PM EDT - 06/14/2016 11:59 PM EDT Hospital Encounter [facility] MRI [address] [address] Benita Infante Cervical radiculopathy Discharge Disposition: Home or Self Care 05/16/2016 2:15 PM EDT - 05/16/2016 3:18 PM EDT Hospital Encounter EDG D-WING XRAY [facility] [place] [address] Neck pain Discharge Disposition: Home or Self Care 05/16/2016 3:19 PM EDT - 05/16/2016 11:59 PM EDT Hospital Encounter [facility] Mammography [facility] [place] [address] Benita Infante Visit for screening Discharge Disposition: Home or Self Care 10/03/2015 1:03 PM EST - 10/03/2015 2:10 PM EST Emergency [facility] [place] [address] Jeremiah Plaza MD Transient elevated blood pressure (Primary Dx) Discharge Disposition: Home or Self Care 05/12/2015 12:48 PM EDT - 05/12/2015 11:59 PM EDT Hospital Encounter [facility] Mamm[facility] [place] [address] Benita Infante Other screening mammogram Discharge Disposition: Home or Self Care 03/05/2015 9:00 AM EDT - 03/05/2015 11:59 PM EDT Hospital Encounter EDG HOLTER MONITOR [facility] [place] [address] Benita Infante Heart rate slow Discharge Disposition: Home or Self Care 11/29/2014 9:21 AM EST - 11/29/2014 11:59 PM EST Hospital Encounter [facility] Stress Test [facility] [place] [address] Jose Curtis MD Chest pain Discharge Disposition: Home or Self Care 11/29/2014 9:21 AM EST - 11/29/2014 11:59 PM EST Hospital Encounter EDG NUC MED [facility] [place] [address] Jose Curtis MD Chest pain Discharge Disposition: Home or Self Care 11/26/2014 4:00 PM EST - 11/26/2014 11:59 PM EST Hospital Encounter [facility] E[facility] [place] [address] Chest pain, unspecified Discharge Disposition: Home or Self Care 09/13/2014 1:30 PM EST - 09/13/2014 11:59 PM EST Hospital Encounter [facility] VASCULAR [facility] [address] [place] [address] Javed Curtis MD Leg edema; Leg pain Discharge Disposition: Home or Self Care 10/29/2013 2:01 PM EST - 10/29/2013 11:59 PM EST Hospital Encounter [facility] Dr. [place] [facility] Benita Infante Other screening mammogram Discharge Disposition: Home or Self Care 09/02/2013 10:00 AM EDT - 09/02/2013 11:59 PM EDT Hospital Encounter [facility] XRAY [address] [place] [address] Dennis Mak MD Nausea; Sternum pain; Abdominal pain, acute, epigastric Discharge Disposition: Home or Self Care 08/27/2013 Telephone [facility] G[facility] [address] [facility] [address] [place] [address] Dennis Mak MD Other 08/17/2013 8:00 AM EDT - 08/17/2013 9:15 AM EDT Surgery [facility] PERIOP [address] [place] [address] Moustapha Shaffer, DPMacie BUNIONECTOMY/SIMPLE/ SILVER/OFF SET V 08/17/2013 6:59 AM EDT - 08/17/2013 10:10 AM EDT Hospital Encounter [facility] SAME DAY SURGERY [address] [place] [address] Moustapha Shaffer, DPM Discharge Disposition: Home or Self Care 08/12/2013 Orders Only [facility] [address] [facility] [address] [place] [address] Dennis Mak MD 08/12/2013 Orders Only [facility] [address] [facility] [address] [place] [address] Dennis Mak MD 08/12/2013 Orders Only [facility] [address] [facility] [address] [place] [address] Dennis Mak MD 08/11/2013 9:00 AM EDT - 08/11/2013 11:59 PM EDT Hospital Encounter [facility] PRE-ADMIT TESTING [address] [place] [address] Pat, Ftt Discharge Disposition: Home or Self Care 07/14/2013 1:45 PM EDT - 07/14/2013 11:59 PM EDT Hospital [facility] [place] [address] Bunion Discharge Disposition: Home or Self Care 07/14/2013 3:10 PM EDT Office Visit [facility] [address] [facility] [address] [facility] [place] [address] Dennis Mak MD Dysphagia (Primary Dx); Family history of colon cancer 07/10/2013 Telephone [facility] [address] [facility] [address] [facility] [place] [address] Dennis Mak MD Other (returning call) 07/16/2012 5:42 AM EDT - 07/16/2012 11:59 PM EDT Hospital Encounter Mobile Mammography Other Location View online schedule for mobile van location [phone] Benita Infante Other screening mammogram Discharge Disposition: Home or Self Care 07/03/2012 11:33 AM EDT - 07/03/2012 11:59 PM EDT Hospital Encounter [facility] MRI [address] [place] [address] Harvey Ba DC Pain in joint, other specified sites Discharge Disposition: Home or Self Care 08/02/2010 9:56 AM EDT - 08/02/2010 11:59 PM EDT Hospital Encounter [facility] M[facility] [place] [facility] [address] Benita Infante Other screening mammogram Discharge Disposition: Home or Self Care 07/06/2009 12:01 AM EDT - 07/06/2009 11:59 PM EDT Hospital Encounter HST EPIC CON UNK ED Benita Infante 06/30/2009 12:01 AM EDT - [...] HST BREAST HEA CTR EDG Benita Infante 01/27/2005 11:10 AM EST - 01/27/2005 11:59 PM EST Hospital Encounter HST LAB EDG Benita Infante 01/24/2005 8:58 PM EST - 01/24/2005 10:45 PM EST Emergency HST E/D GREEN EDG Demetrio Morris MD 07/13/2004 12:01 AM EDT - 07/13/2004 11:59 PM EDT Hospital Encounter HST RADIOLOGY EDG Benita Infante 07/13/2004 12:01 AM EDT - 07/13/2004 11:59 PM EDT Hospital Encounter HST CTR WOM WEL EDBenita Rey 06/08/2003 1:24 AM EDT - 06/08/2003 11:59 PM EDT Hospital Encounter HST CTR WOM WEL Benita Reid 04/08/2003 7:54 PM EDT - 04/08/2003 9:45 [...] Hospital Encounter HST RADIOLOGY EDG Benita Infante 04/22/2002 4:55 PM EDT - 04/23/2002 2:52 PM EDT Hospital Encounter HST TCA Heidi Lomeli 10/20/2001 7:03 PM EST - 10/20/2001 7:40 PM EST Emergency HST MAJOR ER EDG Lizzette Mcdaniels 04/03/2001 6:03 AM EDT - 04/03/2001 11:59 PM EDT Hospital Encounter HST WOS EDG Javed Curtis MD 03/05/2001 5:48 AM EDT - 03/05/2001 11:59 PM EDT Hospital Encounter HST EK4 EDG ArelisBenita 02/27/2001 4:18 AM EDT - 02/27/2001 11:59 PM EDT Hospital Encounter HST EK4 EDG ArelisBenita 02/19/2001 9:49 AM EDT - 02/19/2001 11:59 PM EDT Hospital Encounter HST EK3 EDG ArelisBenita khalil 07/26/2000 2:02 PM EDT - 07/26/2000 11:59 [...] 600 mg by mouth daily. Calcium Active Aub-Jwrxhxrrte-C cetaminop-Caf 66-755-52-30 mg Oral Capsule Take by mouth. Ac [...] 10 mg by mouth daily. 4 Active potassium chloride (KAYCIEL) 20 mEq/15 mL Oral Liquid 20 mEq. 2 Active predniSONE (DELTASONE) 10 mg Oral TabletIndication s:Rheumatoid arthritis of multiple sites 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 (HCC) TAKE 1 TO 3 TABS DAILY NEEDED FOR FLARES 30 Tablet 1 4 Active Biotin 10 mg Oral Tablet Take by mouth daily. Active butalbital-aceta minophen-caff 50-325-40 mg Oral Capsule 5 Active fluticasone propionate (FLONASE) 50 mcg/actuation Nasl [place], Suspension 1 [place] by Nasal route daily. 9.9 mL 5 Active Additional Information Patient not taking.Reason: Therapy Completed, Reported on 08/05/2025 ferrous sulfate 325 mg (65 mg iron) Oral Tablet Take 325 mg by mouth daily. Active ibuprofen (ADVIL;MOTRIN) 800 mg Oral TabletIndication s:Rheumatoid arthritis of multiple sites 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 (HCC) Take 1 Tablet by mouth 2 times daily as needed for Pain. 180 Tablet 1 5 Active omeprazole (PRILOSEC) 20 mg Oral Capsule, Delayed Release(E.C.)Ind ications:Rheumat oid arthritis of multiple sites 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 (HCC) Take 1 Capsule by mouth daily. 90 Capsule 1 5 Active tofacitinib (XELJANZ XR) 11 mg Oral Tablet Sustained Release 24 hrIndications:Rh eumatoid arthritis of multiple sites 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 (HCC) Take 1 Tablet by mouth daily. 90 Tablet 1 5 Active traMADoL (ULTRAM) 50 mg Oral TabletIndication s:Rheumatoid arthritis of multiple sites 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 (HCC),Primary generalized (osteo)arthritis Take 1 Tablet by mouth 2 times daily as needed for Pain (1-5 moderate pain or breakthrough). 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 Overview (05/10/2020): Added automatically from request for surgery [id number] Liver lesion 05/10/2020 Overview (05/10/2020): Added automatically from request for surgery [id number] Hallux valgus of left foot 09/03/2019 Overview (09/03/2019): Added automatically from request for surgery [id number] Hammer toe of left foot 09/03/2019 Overview (09/03/2019): Added automatically from request for surgery [id number] Exostosis 09/03/2019 Overview (09/03/2019): Added automatically from request for surgery [id number] Rheumatoid arthritis of mult iple sites 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 09/03/2019 Overview (09/03/2019): Added automatically from request for surgery [id number] Osteoarthritis of right hip 05/19/2019 Polypharmacy 05/19/2019 [...] Sister Social History Smoking Status as of 09/21/2025 Tobacco Use Types Packs/Day Years Used Date Smoking Tobacco: Never Assessed Sex and Gender Information Value Date Recorded Sex Assigned at Not on file Legal Sex Female 4:54 AM EDT Gender Identity Not on file Sexual Orientation Not on file Last Filed Vital Signs Vital Sign Reading Time Taken Comments Blood Pressure 142/74 08/05/2025 2:09 PM EDT Pulse 78 04/04/2025 4:27 PM EDT Temperature 36.3 C (97.3 F) 08/05/2025 2:09 PM EDT Respiratory Rate 16 04/04/2025 4:27 PM EDT Oxygen Saturation 94% 04/04/2025 4:27 PM EDT Inhaled Oxygen Concentration - - Weight 80 kg (176 lb 6.4 oz) 08/05/2025 2:09 PM EDT Height 157.5 cm (5' 2 ) 08/05/2025 2:09 PM EDT Body Mass Index 32.26 08/05/2025 2:09 PM EDT Plan of Treatment Upcoming Encounters Date Type Department Care Team (Late st Contact Info) Description 12/30/2025 11:00 AM EST Office Visit [facility] Urogynecology [address] [address] Francie Grande MD [address] [place] [phone] 01/21/2026 10:00 AM EDT Office Visit [facility] Dermatology [facility] [address] [facility] [address] [place] [address] Liborio Pardo MD [address] [place], [place] [phone] 02/03/2026 1:00 PM EDT Office Visit [facility] [address] [place] [address] Michaela Palacio MD [address] [place] [address] Medical Devices Implanted Type Area Yarn Finisher Device Identifier Shelf Expiration Date Model / Serial / Lot Shell Acetabular Trident Ii Tritanium D 50[facility] [id number] Implanted:Qty: 1 on 05/19/2019 by Prakash Viramontes MD at [facility] Right: Hip ERICK:ORTHOPEDI 01/08/2024 [id number] / / [id number] Insert Trident X 3 0 Degree 36mm D - [id number] Implanted:Qty: 1 on 05/19/2019 by Prakash Viramontes MD at [facility] Right: Hip ERICK:ORTHOPEDI 03/05/2024 [id number] / / [id number] 6.5mm Low Profile Hex Screw 30mm - [id number] Implanted:Qty: 1 on 05/19/2019 by Prakash Viramontes MD at [facility] Right: Hip ERICK:ORTHOPEDI 04/06/2024 [id number] / / [id number] Size 5 Accolade Ii 127 Deg - [id number] Implanted:Qty: 1 on 05/19/2019 by Prakash Viramontes MD at [facility] Right: Hip ERICK:ORTHOPEDI 04/04/2024 [id number] / / [id number] Head Fem -5mm Ofst Tpr 36mm Hip Blx D V40 Strl - [id number] Implanted:Qty: 1 on 05/19/2019 by Prakash Viramontes MD at [facility] Right: Hip ERICK:ORTHOPEDI 06/19/2023 [id number] / / [id number] Procedures Procedure Name Priority Date/Time Associated Diagnosis [...] 11:00 AM EDT PATHOLOGY TISSUE REQUEST Routine 021 11:00 AM EDT Personal history of other [...] 09/04/2019 1:32 PM EDT Breast mass, right CONTROL OFFICER MANAGER CYTOLOGY REQUEST (PAP ONLY) Routine 09/03/2019 11:09 AM EDT Well woman exam [facility] CONTROL OFFICER MANAGER CYTOLOGY ORDER Routine 9 11:09 AM [...] particular day. Also takes random dose of mzscfmjzud59 mg up to 3 x monthly for [...] LEFT FOOT ; Surgeon: Moustapha Shaffer DPM;[facility]; Service: Orthopedics COLONOSCOPY FOOT SURGERY right bunioun HAND SURGERY right HIP ARTHROPLASTY Right 05/19/2019 right hip total replacement anterior; Surgeon: Prakash Viramontes MD;Location: [facility]; Service: Orthopedics HIP SURGERY left replacement JOINT REPLACEMENT LEFT HIP KNEE SURGERY lt knee arthroscopy TUBAL LIGATION UPPER GASTROINTESTINAL ENDOSCOPY Medications Prior to Admission Medication Sig Dispense Refill Last Dose amLODIPine (NORVASC) 2.5 mg Oral Tablet Take 10 mg by mouth daily.UNSRUE OF DOSAGE 05/18/2019 at 1900 [DISCONTINUED] vxsahgc-aoeghyqldhpgz-cxuwgeit (EXCEDRIN EXTRA STRENGTH)250-250-65 mg Oral Tablet Take 1 Tab by mouth every 6 hours as needed forPain. Taking at Unknown time B-complex with vitamin C (VITAMIN B COMPLEX-C ORAL) Take by mouth.05/18/2019 at 1900 CANNABIDIOL, CBD, EXTRACT ORAL Take 1,500 mg by mouth. 05/18/2019 [id number] cetirizine (ZYRTEC) 10 mg Oral Tablet Take [...] Take 450 Units by mouth daily. 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 PROCEDURE COMMENTS: XR FOOT RIGHT AP LATERAL AND OBLIQUE FINDINGS: No definite acute fracture or malalignment. First MTP arthrodesis with screws. Chronic appearing deformity of the third proximal phalanx. Mild soft tissue edema. Procedure Note Jeremiah Welch MD - 04/04/2025 XR FOOT RIGHT AP LATERAL AND OBLIQUE, 04/04/2025 5:43 PM CLINICAL HISTORY: M79.671-Pain in right aysa-ODX-06-CM COMPARISON: None. PROCEDURE COMMENTS: XR FOOT RIGHT [...] in right ankle and joints of right dkxn-BHV-47-CM COMPARISON: None. PROCEDURE COMMENTS: XR ANKLE RIGHT AP LATERAL AND OBLIQUE FINDINGS: No acute fracture or malalignment. Soft tissue swelling around the ankle greatest anteromedially. Procedure Note Jeremiah Welch MD - 04/04/2025 XR ANKLE RIGHT AP LATERAL AND OBLIQUE, 04/04/2025 5:43 PM CLINICAL HISTORY: M25.571-Pain in right ankle and joints of right tdrm-CKI-00-CM COMPARISON: None. PROCEDURE COMMENTS: XR ANKLE RIGHT [...] QUANTIFERON TB GOLD (02/19/2025 11:47 AM EDT) [facility] Quantiferon-TB Gold in Tube Negative Negative 02/20/2025 [...] 11:18 AM EDT [facility] Blood VENOUS BLOOD / Unknown Venipuncture / Unknown 02/19/2025 11:47 AM EDT 02/19/2025 11:47 AM EDT Narrative [facility] - 02/20/2025 11:18 AM EDT Interferon gamma [...] account when interpreting QuantiFERON TB Gold results. us Michaela Palacio MD IMMUNOLOGY ORDERABLES Final Re sult Performing Organization Address [facility] de Phone Number [facility] [address] [place] [address] , [place] [address] * SEDIMENTATION RATE AUTOMATED (02/19/2025 11:47 AM EDT) Pathologist [facility] Sed Rate 5 0 - 30 mm/hr 02/19/2025 4:06 PM EDT [facility] Blood VENOUS BLOOD / Unknown Venipuncture / Unknown 02/19/2025 11:47 AM EDT 02/19/2025 11:47 AM EDT us Michaela Palacio MD HEMATOLOGY ORDERABLES Final Re sult Performing Organization Address [facility] de Phone Number [facility] [address] [place] [address] , [place] [address] * (ABNORMAL) CBC WITH DIFF (02/19/2025 11:47 AM EDT) Only the most recent of8 resultswithin the time period is included. WBC 5.5 3.7 - 10.3 x10(3)/mcL 02/19/2025 4:06 PM EDT [facility] RBC 3.88(L) 3.90 - 5.20 x10(6)/mcL 02/19/2025 [...] 4:06 PM EDT [facility] Platelet 292 155 - 369 x10(3)/[facility] 02/19/2025 4:06 PM EDT [facility] MPV 10.5 8.8 - 12.5 fL 02/19/2025 4:06 PM EDT [facility] Neut Percent 67.0 % 02/19/2025 4:06 PM EDT [facility] Comment:Neutrophils equals s egs plus bands Imm Gran% 0.4 % 02/19/2025 4:06 PM EDT [facility] Comment:Automated count of m etamyelocytes, myelocytes and promyelocytes. Lymph Percent 24.1 % 02/19/2025 4:06 PM EDT [facility] Lagrange Percent 6.7 % 02/19/2025 4:06 PM EDT [facility] Eos Percent 1.3 % 02/19/2025 4:06 PM EDT [facility] Baso Percent 0.5 % 02/19/2025 4:06 PM EDT [facility] Neut # 3.7 1.6 - 6.1 x10(3)/mcL 02/19/2025 4:06 PM EDT [facility] Comment:Neutrophils equals s egs plus bands IMMGRAN# 0.0 0.0 - 0.1 x10(3)/mcL 02/19/2025 4:06 PM EDT [facility] Comment:Automated count of m etamyelocytes, myelocytes and promyelocytes. An absolute IG <0.1 is reported as 0.0. Lymph # 1.3 1.2 - 3.9 x10(3)/mcL 02/19/2025 4:06 PM EDT [facility], [facility] Lagrange # 0.4 0.3 - 0.9 x10(3)/mcL 02/19/2025 4:06 PM EDT [facility], [facility] Eos# 0.1 0.0 - 0.5 x10(3)/mcL 02/19/2025 4:06 PM EDT [facility], [facility] Baso # 0.0 0.0 - 0.1 x10(3)/mcL 02/19/2025 4:06 PM EDT [facility] Blood VENOUS BLOOD / Unknown Venipuncture / Unknown 02/19/2025 11:47 AM EDT 02/19/2025 11:47 AM EDT us Michaela Palacio MD HEMATOLOGY ORDERABLES Final Re sult Performing Organization Address City/[facility]/ZIP Co de Phone Number [email or web address] , [place] [address] * C-REACTIVE PROTEIN (02/19/2025 11:47 AM EDT) [facility] CRP <3.00 <=5.00 mg/L 02/19/2025 8:03 PM EDT [facility] Blood VENOUS BLOOD / Unknown Venipuncture / Unknown 02/19/2025 11:47 AM EDT 02/19/2025 11:47 AM EDT us Michaela Palacio MD CHEMISTRY ORDERABLES Final Res ult Performing Organization Address City/[facility]/ZIP Co de Phone Number [email or web address] , [place] [address] * CREATININE (02/19/2025 11:47 AM EDT) [facility] Creatinine 0.77 0.51 - 1.30 mg/dL 02/19/2025 8:03 PM EDT [facility] eGFR (CKD-EPIcr 2020) 83 >=60 mL/min/1.7 3 m2 02/19/2025 8:03 PM EDT [facility] Comment:Estimated GFR was ca lculated using the CKD-EPIcr (2020) equation refit without race. The equation is recommended by the National Kidney Foundation - [place] Society of Nephrology Task Force. Blood VENOUS BLOOD / Unknown Venipuncture / Unknown 02/19/2025 11:47 AM EDT 02/19/2025 11:47 AM EDT us Michaela Palacio MD CHEMISTRY ORDERABLES Final Res ult [facility], [facility] [address] , [place] [address] * HEPATIC FUNCTION PANEL (02/19/2025 11:47 AM EDT) Total Protein 6.7 6.4 - 8.3 gm/dL 02/19/2025 8:03 PM EDT [facility] Albumin 3.8 3.2 - 4.6 gm/dL 02/19/2025 8:03 PM EDT [facility], [facility] Bili Direct <0.2 0.0 - 0.3 mg/dL 02/19/2025 8:03 PM EDT [facility], [facility] Bili Total 0.3 0.2 - 1.3 mg/dL 02/19/2025 8:03 PM EDT [facility] AST 27 <=40 U/L 02/19/2025 8:03 PM EDT [facility] ALT 16 <=41 U/L 02/19/2025 8:03 PM EDT [facility] Alk Phos 90 36 - 123 U/L 02/19/2025 8:03 PM EDT [facility], [facility] Blood VENOUS BLOOD / Unknown Venipuncture / Unknown 02/19/2025 11:47 AM EDT 02/19/2025 11:47 AM EDT us Michaela Palacio MD CHEMISTRY ORDERABLES Final Res ult [employer] [address] [facility], [address] [place] [id number] * CT VILMA LUNG NODULE FOLLOW UP [...] HISTORY: Follow up lung nodule. R91.1-Solitary pulmonary prwrzr-LJX-80-CM. COMPARISON: 12/27/2023 PROCEDURE COMMENTS: Noncontrast, low-dose, multidetector [...] HISTORY: Follow up lung nodule. R91.1-Solitary pulmonary oermct-NXY-33-CM. COMPARISON: 12/27/2023 PROCEDURE COMMENTS: Noncontrast, low-dose, multidetector [...] ORDERABLES Fi nal Result Performing Organization Address [facility] Co de Phone Number QUEST [facility] [address] [place] [address] * HEPATIC FUNCTION PANEL-QUEST (01/02/2024 2:43 PM [...] ORDERABLES Fin al Result Performing Organization Address City/[facility]/ZIP Co de Phone Number QUEST [facility] [address] [place] [address] * CREATININE-QUEST (01/02/2024 2:43 PM EST) Only the most recent of2 resultswithin the time period is included. Creatinine 0.72 0.50 - 1.05 mg/dL [facility] EGFR 91 > OR = 60 mL/min/1.73 m2 [facility] 01/02/2024 2:43 PM EST 01/02/2024 2:43 PM EST Michaela Palacio MD QUEST-CHEMISTRY ORDERABLES Fin al Result Performing Organization Address City/[facility]/ZIP Co de Phone Number QUEST [facility] [address] [place] [address] * C REACTIVE PROTEIN-QUEST (01/02/2024 2:43 PM EST) Only the most recent of3 resultswithin the time period is included. CRP 1.2 <8.0 mg/L [facility] 01/02/2024 2:43 PM EST 01/02/2024 2:43 PM EST Michaela Palacio MD QUEST-CHEMISTRY ORDERABLES Fin al Result Performing Organization Address City/[facility] de Phone Number QUEST [facility] [address] [place] [address] * CBC WITH AUTO DIFF-QUEST (01/02/2024 2:43 PM EST) Only the most recent of3 resultswithin the time period is included. WBC 7.4 3.8 - 10.8 Thousand/u L [facility] RBC 4.27 3.80 - 5.10 Million/uL [facility] Hemoglobin 13.7 11.7 - 15.5 g/dL [facility] Hematocrit 40.6 35.0 - 45.0 % [facility] MCV 95.1 80.0 - 100.0 fL [facility] MCH 32.1 27.0 - 33.0 pg [facility] MCHC 33.7 32.0 - 36.0 g/dL [facility] RDW 12.5 11.0 - 15.0 % [facility] Platelets 338 140 - 400 Thousand/u L [facility] MPV 10.1 7.5 - 12.5 fL [facility] Neut# 5,002 1,500 - 7,800 cells/uL [facility] Lymph# 1,717 850 - 3,900 cells/uL [facility] Monocytes(Absol mille lacs) 540 200 - 950 cells/uL [facility] Eos 111 15 - 500 [...] QUEST-HEMATOLOGY ORDERABLES Fi nal Result QUEST [facility] [address] [place] [address] * QUANTIFERON(R)-TB GOLD PLUS, 1-QUEST (01/02/2024 2:43 PM EST) Only the most recent of2 resultswithin the time period is included. [facility] QUANTIFERON(R)-T B GOLD PLUS, 1 TUBE [...] T-lymphocytes. For additional information, please refer to https://education.[employer]/faq/ZIH431 (This link is being provided for informational/ educational purposes only.) 01/02/2024 2:43 PM EST 01/02/2024 2:43 PM EST us Michaela Palacio MD QUEST-IMMUNOLOGY ORDERABLES Fi nal Result [facility] [address] [place] [address] * CT CHEST ABDOMEN PELVIS W CONTRAST [...] history of other malignant neoplasm of large dtmvmznlo-DJA-19-CM. COMPARISON: December 25, [address] and [...] Z85.038-Personal history of other malignant neoplasm oflarge ybuzuhnyc-ZRJ-38-CM. COMPARISON: December 25, [address] and [...] contactthe office of the ordering clinician. us Rashad Timmons PA-C [facility] CT ORDERABLES Final Resu lt * CREATININE ISTAT (12/27/2023 2:30 PM EST) Only the most recent of4 resultswithin the time period is included. Creatinine-iST AT 0.8 0.6 - 1.3 mg/dL 12/27/2023 2:33 PM EST [facility] Blood BLOOD SPECIMEN / Unknown 12/27/2023 2:30 PM EST 12/27/2023 2:33 PM EST us Rashad Timmons PA-C POINT OF CARE TEST ORDERABLE S Final Result [facility] [address] [place] [address] * ESOPHAGOGASTRODUODENOSCOPY (EGD) (08/02/2023 3:34 PM EDT) [...] None Staff Staff Role Ilana Santiago RN Astro Technician MORGAN Hill CRNA, MD Performing Provider MORGAN [...] PM Specimens No specimens collected Leora Monique LOGISTICS DIRECTOR ENDOSCOPY PROCEDURE ORDER XAVIER Final Result * INTRAOP AIRWAY PLACEMENT (08/02/2023 3:03 PM EDT) Narrative [facility] - 08/02/2023 3:03 PM EDT Berlin Otoole, SUPERVISOR TAN ROOM 08/02/2023 3:10 PM Intraop Airway Placement: Date/Time: [...] Atraumatic Insertion attempts: 1 Reza Sky DO [place] ANESTHESIA Edited Resu lt - Final [facility] [address] [place] [id number] * (ABNORMAL) BASIC METABOLIC PANEL (08/02/2023 11:48 AM EDT) Only the most recent of8 resultswithin the time period is included. Sodium 142 136 - 145 mmol/L 08/02/2023 12:13 PM EDT [facility] Potassium 3.2(L) 3.5 - 5.0 mmol/L 08/02/2023 12:13 PM EDT [facility] Chloride 104 98 - 107 mmol/L 08/02/2023 12:13 PM EDT [facility] Total CO2 28 22 - 29 mmol/L 08/02/2023 12:13 PM EDT [facility] Anion Gap 10 7 - 16 mmol/L 08/02/2023 12:13 PM EDT [facility] Calcium 9.4 8.8 - 10.4 mg/dL 08/02/2023 12:13 PM EDT [facility] Glucose Lvl 102(H) 82 - 100 mg/dL 08/02/2023 12:13 PM EDT [facility] BUN 19 8 - 23 mg/dL 08/02/2023 12:13 PM EDT [facility] Creatinine 0.73 0.51 - 1.30 mg/dL 08/02/2023 12:13 PM EDT [facility] eGFR (CKD-EPIcr 2020) 89 >=60 mL/min/1.7 3 m2 08/02/2023 12:13 PM EDT [facility] Comment:Estimated GFR was ca lculated using the CKD-EPIcr (2020) equation refit without race. The equation is recommended by the National Kidney Foundation - [place] Society of Nephrology Task Force. Blood VENOUS BLOOD / Unknown Venipuncture / Unknown 08/02/2023 11:48 AM EDT 08/02/2023 11:56 AM EDT Rip Meyer MD CHEMISTRY ORDERABLES Final Resul t [facility] [address] [place] [address] * COMPREHENSIVE METABOLIC PANEL-QUEST (07/04/2023 2:16 PM EDT) Pathologist [facility] Glucose 87 65 - 99 mg/dL [facility] Comment: Fasting reference interval BUN 14 7 - 25 mg/dL [facility] Creatinine 0.74 0.50 - 1.05 mg/dL [facility] EGFR 88 > OR = 60 mL/min/1.7 3m2 [facility] BUN/Creatinine Ratio SEE NOTE: (calc) [facility] Comment: Not [...] QUEST-CHEMISTRY ORDERABLES Fin al Result QUEST [facility] [address] [place] [address] * MM MAMMO DIGITAL BONY SCREEN BILAT (05/16/2023 2:07 PM EDT) Only the most recent of2 resultswithin the time period is included. Anatomical Region Laterality Modality Breast Bilateral Mammography 05/16/2023 2:51 PM EDT Impressions 05/16/2023 2:51 PM EDT Negative (HYH-Bcrdqotc-5) ~ RECOMMENDATION: Routine screening mammogram in 1 [...] the next mammogram, in accordance with the [place] College of Radiology and the Society of Breast Imaging recommendations. Narrative 05/16/2023 2:51 PM EDT Procedure:MM MAMMO DIGITAL BONY SCREEN BILAT ~ Reason for exam: screening, asymptomatic. Z12.31-Encounter for screening mammogram for malignant neoplasm of ptewll-GKH-23-CM ~ MM MAMMO DIGITAL BONY SCREEN BILAT [...] for screening mammogram for malignant neoplasm of wumejk-JEL-55-CM ~ MM MAMMO DIGITAL BONY SCREEN BILAT Bilateral CC and MLO view(s) were taken. Technologist: RT [place] There are scattered fibroglandular densities. Prior study comparison: Compared with prior studies the most recentbeing 03/05/22, 02/09/21 No mammographic evidence of malignancy. ~ IMPRESSION: Negative (AHL-Mwlroewf-3) ~ RECOMMENDATION: Routine screening mammogram in 1 [...] the next mammogram, in accordance with the [place] College of Radiology and the Society of Breast Imaging recommendations. Benita Infante [facility] MAMMOGRAPHY ORDERABLES Jill alfaro Result * (ABNORMAL) [...] nal Result Performing Organization Address [facility] Co de Phone Number QUEST [facility] [address] [place] [address] * CULTURE, ANAEROBIC BACTERIA WITH GRAM STAIN-QUEST (11/26/2022 11:54 AM EST) Bacteria Identified QUEST SEE NOTE [facility] Comment: CULTURE, ANAEROBIC BACTERIA W/GRAM STAIN Micro Number: [id number] Test Status: Final Specimen Source: R knee fluid Specimen Quality: Adequate Gram Stain: No organisms seen Result: No anaerobes isolated. 11/21/2022 9:0 8 AM EST Narrative QUEST - 11/26/2022 11:54 AM EST FASTING: UNKNOWN Michaela Palacio MD QUEST-MICROBIOLOGY ORDERABLES Final Result Performing Organization Address [facility] Co de Phone Number QUEST [facility] [address] [place] [address] * CULTURE, AEROBIC BACTERIA-QUEST (11/26/2022 11:54 AM EST) Aerobic Bacterial Culture SEE NOTE [facility] Pang Comment: CULTURE, AEROBIC BACTERIA Micro Number: [id number] Test Status: Final Specimen Source: R knee fluid Specimen Quality: Adequate Result: No Growth NO COLLECTION DATE RECEIVED. WE HAVE USED THE DATE THE SPECIMEN WAS RECEIVED BY THIS LABORATORY THE COLLECTION DATE. IF THIS IS INCORRECT, PLEASE CONTACT CLIENT SERVICES. PHONE NUMBER: [phone] 11/21/2022 9:0 8 AM EST Narrative QUEST - 11/26/2022 11:54 AM EST FASTING: UNKNOWN Michaela Palacio MD QUEST-MICROBIOLOGY ORDERABLES Final Result [facility]IL[facility] Pang [address] [place] [address] * TEST IN QUESTION - MISC. QUESTION (11/26/2022 11:54 AM EST) Service Comment Ques remi [employer]-Caleb Pang Comment: There is a question regarding the following specimen submitted and/or the test requested. QUESTION: VERIFY CARLOS NEED [id number] Wilbur Pang Resolution: Wilbur SoB[employer]10Guicho Pang Comment: COMMENTS Wilbur SoBiz10Guicho Pang Comment: REQUESTED INFORMATION AUTHORIZED SIGNATURE TO PREVENT FURTHER DELAYS IN TESTING, PLEASE COMPLETE INFORMATION ABOVE AND FAX TO [phone] TO RESOLVE THIS ORDER. 11/21/2022 9:0 8 AM EST Narrative QUEST - 11/26/2022 11:54 AM EST FASTING: UNKNOWN Michaela Palacio MD QUEST TEST IN QUESTION CODES F inal Result Performing Organization Address City/[facility]/ZIP Co de Phone Number QUEST [facility] [address] [place] [address] * CRYSTALS, SYNOVIAL FLUID-QUEST (11/26/2022 11:54 AM EST) Pathologist [facility] Specimen Source R KNEE FLUID [facility] Crystals, Synovial Fluid NONE SEEN /HPF [facility] Comment:No crystals found 11/21/2022 9:0 8 AM EST Narrative QUEST - 11/26/2022 11:54 AM EST FASTING: UNKNOWN Michaela Palacio MD QUEST-BODY FLUIDS AND STOOL Fi nal Result Performing Organization Address City/[facility]/ZIP Co de Phone Number QUEST [facility] [address] [place] [address] * CARCINOEMBRYONIC ANTIGEN (09/10/2022 2:41 PM EDT) Only the most recent of4 resultswithin the time period is included. Pathologist [facility] CEA (Legacy) 1.21 ng/mL 09/10/2022 10:10 PM EDT PREFERRED [facility] Comment: Non-Smokers: <= 5.0 ng/mL Smokers: <= 10.0 ng/mL [facility] uses the Hung Pickle Processor CEA assay, which is intended to be [...] Timmons PA-C CHEMISTRY ORDERABLES Final R esult [employer] [address] [facility], [place] [address] * [facility] LOWER EXTREMITY VENOUS RIGHT (08/17/2021 [...] the contralateral left commonfemoral vein. Judy Gallego APRN IMG VASCULAR ORDERABLES Final [...] ORDERABLES Fin al Result [facility] [address] [place] [address] * PATHOLOGY TISSUE REQUEST (08/14/2021 11:00 AM EDT) Only the most recent of3 resultswithin the time period is included. CASE REPORT Surgical Pathology Case: [id number] Authorizing Provider: Dennis Mak MD Collected: 08/14/2021 1100 Ordering Location: [facility] Received: 08/14/2021 1544 Pathologist: Manuel Brito MD Specimen: Large Intestine, Left/Descending Colon 08/15/2021 11:55 AM EDT [facility] FINAL DIAGNOSIS Descending Colon Polyp x 2: - Sessile Serrated Polyps, Negative For High-Grade Dysplasia. 08/15/2021 11:55 AM EDT [facility] at 1155 EDT GROSS [...] 08/14/2021 3:52 PM 08/15/2021 11:55 AM EDT [facility] MICROSCOPIC DESCRIPTION Microscopic examination is performed and the findings corroborate the diagnosis. 08/15/2021 11:55 AM EDT [facility] EMBEDDED IMAGES 08/15/2021 11:55 AM EDT [facility] Tissue DESCENDING COLON STRUCTURE / Unknown 08/14/2021 11:00 AM EDT 08/14/2021 3:44 PM EDT Dennis Mak MD PATHOLOGY ORDERABLES Final Result [facility] [address] [place] [address] [facility] [address] [place] [address] * CORONAVIRUS 2019 (08/11/2021 2:06 PM EDT) Only the most recent of2 resultswithin the time period is included. CORONAVIRUS [id number] Not Detected Not Detected 08/12/2021 1:19 PM EDT [employer] Comment: Caution should be exercised when interpreting [...] of COVID-19. Test is performed on the Verimatrix platform under the FDA's Emergency Use Authorization (EUA). [facility] Provider Fact Sheet: https://www.fda.gov/media/757409/download [facility] Patient Fact Sheet: https://www.fda.gov/media/228113/download Performed at [facility] [address] [place] [address] CLIA [id number] Swab BOTH ANTERIOR NARES / Unknown 08/11/2021 2:06 PM EDT 08/11/2021 2:06 PM EDT Dennis Mak MD MICROBIOLOGY - GENERAL MASSIEL FANG Final Result Mad Mimi [facility] [address] [facility] [facility] , [place] [address] * XR HAND LEFT PA LATERAL AND [...] 3:58 PM CLINICAL HISTORY: M79.642-Pain in left izun-RCS-58-CM COMPARISON: None. PROCEDURE COMMENTS: XR HAND LEFT [...] 3:58 PM CLINICAL HISTORY: M79.642-Pain in left iucu-YCF-06-CM COMPARISON: None. PROCEDURE COMMENTS: XR HAND LEFT [...] EDT Impressions 02/09/2021 11:29 AM EDT Negative (NXE-Pcvhepkj-6) ~ RECOMMENDATION: Routine screening mammogram in 1 [...] the next mammogram, in accordance with the [place] College of Radiology and the Society of Breast Imaging recommendations. Narrative 02/09/2021 11:29 AM EDT Procedure:MM MAMMO DIGITAL BONY DIAGN BILAT ~ Reason for exam: clinical finding. N64.89-Other specified disorders of iarrry-TZT-87-CM. Follow-up asymmetric right breast density. No current [...] suspicious calcifications. ~ Procedure Note Demetrio Horowitz, - 02/09/2021 Procedure:MM MAMMO DIGITAL BONY DIAGN BILAT ~ Reason for exam: clinical finding. N64.89-Other specified disorders of csrwxk-NSW-50-CM. Follow-upasymmetric right breast density. No current clinical [...] distortion or suspicious calcifications. ~ IMPRESSION: Negative (YUQ-Vasjarib-7) ~ RECOMMENDATION: Routine screening mammogram in 1 [...] the next mammogram, in accordance with the [place] College of Radiology and the Society of Breast Imaging recommendations. Cristi Sosa MD [facility] MAMMOGRAPHY ORDERABLES F inal Result * EXTRA HERNANDEZ URINE CX (07/28/2020 10:07 AM EDT) Urine 07/28/2020 10:0 7 AM EDT 07/28/2020 10:07 AM EDT us Rashad Timmons PA-C MICROBIOLOGY - GENERAL ORDER XAVIER Final Result [place] [id number] * (ABNORMAL) URINALYSIS (07/28/2020 10:07 AM EDT) [...] ORDERABLES Final Resul t Performing Organization Address City/[facility]/ZIP Co de Phone Number [facility], [facility] [address] [facility] , [place] [address] * URINE CULTURE (NO STAIN) (07/28/2020 10:07 AM EDT) Culture No growth at 30 hours. 07/30/2020 10:27 AM EDT [email or web address], [facility] Urine 07/28/2020 10:0 7 AM EDT 07/28/2020 3:23 PM EDT Rashad Timmons PA-C MICROBIOLOGY - GENERAL ORDER XAVIER Final Result Performing Organization Address [facility] Co de Phone Number PREFERRED [employer] [facility] [address] , [place] [address] * MAGNESIUM LEVEL (06/21/2020 10:39 AM EDT) Magnesium 2.1 1.6 - 2.4 mg/dL 06/21/2020 11:23 AM EDT [email or web address], [facility] Blood VENOUS BLOOD / Unknown Venipuncture / Unknown 06/21/2020 10:39 AM EDT 06/21/2020 10:39 AM EDT Gonzalez Vargas MD CHEMISTRY ORDERABLES Final R esult Performing Organization Address City/[facility] Co de Phone Number PREFERRED LAB [facility], [facility] [address] , [address] [place] [phone] * (ABNORMAL) COMPREHENSIVE METABOLIC PANEL (06/21/2020 10:39 [...] 11:34 AM EDT [facility] Glucose Lvl 101(H) 82 - 100 mg/dL 06/21/2020 11:34 AM EDT [facility] BUN 14 8 - 23 mg/dL 06/21/2020 11:34 AM EDT [facility] Creatinine 0.66 0.51 - 1.30 mg/dL 06/21/2020 11:34 AM EDT [facility] Albumin 4.0 3.2 - 4.6 gm/dL 06/21/2020 11:34 AM EDT [facility] Total Protein 7.1 6.4 - 8.3 gm/dL 06/21/2020 11:34 AM EDT [facility] Bili Total 0.2 0.1 - 1.3 mg/dL 06/21/2020 11:34 AM EDT [facility] ALT 5 <=41 U/L 06/21/2020 11:34 AM EDT [facility] AST 12 <=40 U/L 06/21/2020 11:34 AM EDT [facility] Alk Phos 65 36 - 123 U/L 06/21/2020 11:34 AM EDT [facility] GFR Afr Am 107 >=60 mL/min/1.7 3 m2 06/21/2020 11:34 AM EDT [facility] GFR Non Afr Am 93 >=60 mL/min/1.7 3 m2 06/21/2020 11:34 AM EDT [facility] Comment: This estimated GFR was calculated [...] Vargas MD CHEMISTRY ORDERABLES Final R esult [facility], [facility] [address] [place] [address], [place] [address] [facility] [address] [place] [address] * SCANNED RHYTHM STRIPS (06/06/2020 11:09 AM [...] time period is included. ECG INTERPRET NSR [facility] 06/04/2020 7:32 AM EDT Narrative [facility] - 06/04/2020 8:50 AM EDT NAIF AICU/ROUTINE VT 0.12 QRS 0.10 RR 0.72 QT 0.42 See Clinical Report link for waveform capture us Unknown Provider POINT OF CARE CARDIOLOGY Final Result [facility] [address] [place] [id number] * EK EKG 12 LEAD (06/03/2020 2:24 PM EDT) Only the most recent of4 resultswithin the time period is included. Anatomical Region Laterality Modality Electrocardiogra phy 06/03/2020 3:02 PM EDT Impressions 06/03/2020 3:[address] [facility] Test Date: 2020-06-03 Pat Name: [facility] Department: DEPID Room: [facility] Gender: Female Camera Person: PEDRO COSTAB: 1955 Requested By: RASHAD TIMMONS Order Number: [id number] Reading MD: Arcadio Rooney MD Measurements Intervals [place] Rate: 91 P: 59 VT: 134 QRS: 42 QRSD: 100 T: 41 QT: 349 QTc: 430 Interpretive Statements SINUS RHYTHM WITH OCCASIONAL ECTOPIC PREMATURE COMPLEXES NONSPECIFIC ST & T-WAVE ABNORMALITY Electronically Signed On 06-03-2020 15:35:59 EDT by Arcadio Rooney MD Narrative Procedure Note Arcadio Rooney MD - 06/03/[address] [facility] Test Date: 2020-06-03 Pat Name: [facility] Department: DEPID Room: 2330 Gender: Female Camera Person: PEDRO : 1955 Requested By: RASHAD TIMMONS Order Number: [id number] Reading MD: Arcadio Rooney MD Measurements Intervals [place] Rate: 91 P: 59 VT: 134 QRS: 42 QRSD: 100 T: 41 QT: 349 QTc: 430 Interpretive Statements SINUS RHYTHM WITH OCCASIONAL ECTOPIC PREMATURE COMPLEXES NONSPECIFIC ST & T-WAVE ABNORMALITY Electronically Signed On 06-03-2020 15:35:59 EDT by Arcadio Rooney MD us Rashad Timmons PA-C IMG ECG ORDERABLES Final Res ult * Peripheral Block by Anesthesia (06/02/2020 2:25 PM EDT) Narrative [facility] - 06/02/2020 2:25 PM EDT [...] Hernandez MD ANESTHESIA ORDERABLES Final Res ult [facility] [address] [place] [address] * NEOGENOMICS MISMATCH REPAIR (MMR) IHC PANEL (06/02/2020 1:51 PM EDT) Pathologist [facility] Equidate Result H&E (Comments) = B) Sigmoid Colon [...] MLH1 in formalin-fixed paraffin-embedded tissue sections. A polymerQminder based system was used for detection. MLH1 (Disclaimer) = MMR references ranges are based on Naked` internal validation, and we recommend cases with equivocal staining be confirmed with microsatellite instability (MSI) testing. MLH1 (Control Statement) = The digitized slide(s) was/were adequate for quantitative image analysis. All controls were reviewed and showed appropriate positive and negative immunoreactivity. MLH1 (Image Analysis Statement) = Whole slide image capture was performed with the [employer]io ScanScope and quantitative computer-assisted image analysis using iTracs software. MSH2 (Intended Use) = Mismatch repair [...] MSH2 in formalin-fixed paraffin-embedded tissue sections. A polymerLolly Wolly Doodle y based system was used for detection. [...] MSH6 in formalin-fixed paraffin-embedded tissue sections. A polymerQminder based system was used for detection. PMS2 [...] PMS2 in formalin-fixed paraffin-embedded tissue sections. A polymerQminder based system was used for detection. [facility] 06/02/2020 1:51 PM EDT Narrative [facility] - 06/13/2020 1:22 PM EDT Requesting Provider: Gonzalez Hollingsworth Specimen = [id number] us Manuel Brito MD PATHOLOGY ORDERABLES Final Res ult [facility] [address] [place] [address] * INTRAOP AIRWAY PLACEMENT (06/02/2020 8:44 AM EDT) Narrative [facility] - 06/02/2020 8:44 AM EDT [...] Insertion attempts: 1 Attempt 1 by: KASIE OLIVARES Title: RNSA us Kayode To MD [place] ANESTHESIA Edited Result - Final Performing Organization Address City/[facility]/[place] [address] * BB HISTORY CHECK (05/20/2020 12:22 PM EDT) Only the most recent of2 resultswithin the time period is included. Pathologist [facility] BB HISTORY CHECK (1) Previous History OK 05/20/2020 12:53 PM EDT [facility] Blood VENOUS BLOOD / Unknown Venipuncture / Unknown 05/20/2020 12:22 PM EDT 05/20/2020 12:33 PM EDT us Gaby Garcia LOGISTICS DIRECTOR BLOOD BANK ORDERABLES Final R esult Performing Organization Address City/[facility]/ZIP Co de Phone Number [facility]ANK [address] [place] [address] * SURGERY DATE (05/20/2020 12:22 PM EDT) Only the most recent of2 resultswithin the time period is included. Pathologist [facility] Surgery Date (1) Complete 05/20/2020 12:54 PM EDT [facility] BLOOD BANK Blood VENOUS BLOOD / Unknown Venipuncture / Unknown 05/20/2020 12:22 PM EDT 05/20/2020 12:33 PM EDT Gaby Garcia LOGISTICS DIRECTOR BLOOD BANK ORDERABLES Final R esult [facility] BLOOD [address] [address] * ABORH (05/20/2020 12:22 PM EDT) Only the most recent of2 resultswithin the time period is included. ABORH Int A POS 05/20/2020 1:2 0 PM EDT [facility] Blood VENOUS BLOOD / Unknown Venipuncture / Unknown 05/20/2020 12:22 PM EDT 05/20/2020 12:33 PM EDT Gaby Garcia LOGISTICS DIRECTOR BLOOD BANK ORDERABLES Final R esult Performing Organization Address [facility] Co de Phone Number [address] [address] * ANTIBODY SCREEN IGG (05/20/2020 12:22 PM EDT) Only the most recent of2 resultswithin the time period is included. 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 eotibnal-GLC-17-CM COMPARISON: Prior PET and CT PROCEDURE COMMENTS: [...] GLUCOSE METER POC (04/28/2020 8:34 AM EDT) [facility] Glucose Meter POC 96 70 - 100 mg/dL 04/28/2020 8:35 AM EDT [facility] Sample Type Capillary 04/28/2020 8:35 AM EDT [facility] Patient Status Non-Critical Patient 04/28/2020 8:35 AM EDT [facility] Blood BLOOD SPECIMEN / Unknown 04/28/2020 8:34 AM EDT 04/28/2020 8:35 AM EDT Rashad Timmons PA-C POINT OF CARE TEST ORDERABLE S Final Result [facility] [address] [place] [address] * GMED EGD-COLONOSCOPY (04/15/2020 10:20 AM EDT) 04/15/2020 10:2 0 AM EDT Impressions [facility] - 04/15/2020 11:24 AM EDT Plan: CT scan chest/abdomen/pelvis with contrast Colonoscopy in 1 year. This section is an excerpt of the full report. us Dennis Mak MD GI PROCEDURE ORDERABLES Fin al Result Performing Organization Address City/[facility]/ZIP Co de Phone Number [facility] [address] [place] [phone] * CORONAVIRUS 2019 (COVID-19) - REF LAB (04/12/2020 11:25 AM EDT) CORONAVIRUS [id number] Not Detected 04/14/2020 11:25 AM EDT [employer], [employer] Comment: INTERPRETIVE INFORMATION: SARS-CoV-2 (COVID-19) by ROSA [...] In compliance with this authorization, please visit [email or web address] for more information and to access the applicable information sheets. If the result is Not Detected, this does not rule out the presence of PCR inhibitors in the patient specimen or assay specific nucleic acid in concentrations below the level of detection by the assay. Performed by [facility], [address] [place] [id number] [email or web address], Craig Machuca MD, Lab. Director Coronavirus Flirq[employer]IN Source Nasopharyngeal 04/14/2020 11:25 AM EDT [employer], [employer] Swab NASOPHARYNGEAL STRUCTURE / Unknown 04/12/2020 11:25 AM EDT 04/12/2020 11:25 AM EDT us Dennis Mak MD LAB SEND OUT ORDERABLES Fin al Result Performing Organization Address City/[facility]/ZIP Co de Phone Number [facility] [address] [place] [address] * MRI KNEE LEFT WO CONTRAST (12/02/2019 [...] CONTRAST, 12/02/2019. CLINICAL HISTORY: M25.562-Pain in left qjrr-FMT-75-CM COMPARISON: None. TECHNIQUE: Multiplanar, multisequence MR images [...] CONTRAST, 12/02/2019. CLINICAL HISTORY: M25.562-Pain in left pgaf-DCH-25-CM COMPARISON: None. TECHNIQUE: Multiplanar, multisequence MR images [...] Advanced tricompartmental osteoarthrosis. us Ming Santamaria MD [facility] MRI ORDERABLES Final Res ult * MRI [...] CONTRAST, 12/02/2019. CLINICAL HISTORY: M25.511-Pain in right geudldnc-ZGE-36-CM COMPARISON: None. TECHNIQUE: Multiplanar, multisequence MR images [...] CONTRAST, 12/02/2019. CLINICAL HISTORY: M25.511-Pain in right nqeroftw-HPZ-93-CM COMPARISON: None. TECHNIQUE: Multiplanar, multisequence MR images [...] subacromial/subdeltoid bursitis. - us Ming Santamaria MD [facility] MRI ORDERABLES Final Res ult * MRI [...] CONTRAST, 12/02/2019. CLINICAL HISTORY: M25.512-Pain in left pthdzjem-HOI-31-CM COMPARISON: None. TECHNIQUE: Multiplanar, multisequence MR images [...] CONTRAST, 12/02/2019. CLINICAL HISTORY: M25.512-Pain in left fqttownf-LYL-42-CM COMPARISON: None. TECHNIQUE: Multiplanar, multisequence MR images [...] mild subacromial/subdeltoid bursitis. - Ming Santamaria MD [facility] MRI ORDERABLES Final Res ult * RETICULOCYTE PANEL DIAGNOSTIC (09/28/2019 3:36 PM EST) Retic Cnt Auto 1.0 0.9 - 2.5 % 09/28/2019 4:08 PM EST [facility] Retic # 40.8 40.0 - 110.0 x10(3)/mcL 09/28/2019 4:08 PM EST [facility] Imm. Retic Fraction % 8.5 3.1 - 17.6 % 09/28/2019 4:08 PM EST [facility] Retic Hgb 36.8 23.0 - 38.0 pg 09/28/2019 4:08 PM EST [facility] Blood VENOUS BLOOD / Unknown Venipuncture / Unknown 09/28/2019 3:36 PM EST 09/28/2019 3:36 PM EST Narrative [facility] - 09/28/2019 4:08 PM EST Reticulocyte hemoglobin [...] al. 2014. Am J Clin Pathol 142:506-512. (4)Riky, L., et al. 2010. Blood 116:8176-9674. us Dennis Mak MD HEMATOLOGY ORDERABLES Final Result Performing Organization Address [facility] Co de Phone Number [facility], [address] , [place] [address] * (ABNORMAL) IRON/UIBC (09/28/2019 3:36 PM EST) Pathologist [facility] Iron 40 30 - 160 mcg/dL 09/28/2019 4:40 PM EST [facility], [facility] UIBC 265 112 - 347 mcg/dL 09/28/2019 4:40 PM EST [facility], [facility] Transferrin Sat 13(L) 20 - 50 % 9 4:40 PM EST [facility] Blood Venipuncture / Unknown 09/28/2019 3:36 PM EST 09/28/2019 3:36 PM EST us Dennis Mak MD CHEMISTRY ORDERABLES Final Result Performing Organization Address [facility] de Phone Number [facility] [employer], [address] , [place] [address] * (ABNORMAL) CBC (09/28/2019 3:36 PM EST) [facility] WBC 9.6 3.7 - 10.3 x10(3)/mcL 09/28/2019 4:08 PM EST [facility], [facility] RBC 4.00 3.90 - 5.20 x10(6)/mcL 09/28/2019 [...] 09/28/2019 4:08 PM EST [facility] MPV 9.9 8.8 - 12.5 fL 09/28/2019 4:08 PM EST [facility] Blood VENOUS BLOOD / Unknown Venipuncture / Unknown 09/28/2019 3:36 PM EST 09/28/2019 3:36 PM EST us Dennis Mak MD HEMATOLOGY ORDERABLES Final Result [facility], [facility] [address] , [place] [address] * FERRITIN (09/28/2019 3:36 PM EST) Ferritin 25 13 - 150 ng/mL 09/28/2019 4:39 PM EST [facility], [facility] Blood Venipuncture / Unknown 09/28/2019 3:36 PM EST 09/28/2019 3:36 PM EST Narrative [facility] - 09/28/2019 4:39 PM EST Ingestion of del doses of biotin (>5 mg/day) taken within 8 hours of drawing blood sample can interfere with this immunoassay test. us Dennis Mak MD CHEMISTRY ORDERABLES Final Result [facility] [address] , [place] [address] * MM US BREAST LIMITED RIGHT (09/11/2019 1:02 PM EDT) Anatomical Region Laterality Modality Breast Right Ultrasound 09/11/2019 2:42 PM EDT Impressions 09/11/2019 2:42 PM EDT Benign finding (WDT-Kdnqnnah-8) ~ RECOMMENDATION: Follow-up diagnostic mammogram of both [...] N63.10-Unspecified lump in the right breast, unspecified iwsyaerl-OYV-53-CM ~ MM US BREAST LIMITED RIGHT Standard [...] mass. N63.10-Unspecified lump in the right breast, akdzovyxinlqdvkmqgz-PXN-95-CM ~ MM US BREAST LIMITED RIGHT Standard views. ~ Prior study comparison: Compared with prior studies the most recentbeing mammogram from September 04, 2019 and numerous older mammograms datingback to 2010 High-resolution scanning performed in the RIGHT 10:00 [...] shadowing or distortion. ~ IMPRESSION: Benign finding (RNT-Gtzvkycd-5) ~ RECOMMENDATION: Follow-up diagnostic mammogram of both [...] IMG MAMMOGRAPHY ORDERABLES F inal Result * CONTROL OFFICER MANAGER CYTOLOGY REQUEST (PAP ONLY) (09/03/2019 11:09 AM EDT) CASE REPORT Gynecologic Cytology Report Case: [id number] Authorizing Provider: Cristi Sosa MD Collected: 09/03/2019 1109 Ordering Location: [facility] Received: 09/03/2019 1109 First Screen: Kenny Turner CT Specimen: LIQUID-BASED PAP - CERVICAL/ENDOCERV ICAL, Cervix, Endocervical 09/04/2019 10:37 AM EDT [facility] PAP FINAL DIAGNOSIS Negative for intraepithelial lesion or malignancy 09/04/2019 10:37 AM EDT [facility] at 1037 EDT MICROSCOPIC DESCRIPTION Microscopic examination is performed and the findings corroborate the diagnosis. 09/04/2019 10:37 AM EDT [facility] PAP SMEAR ADEQUACY Satisfactory for evaluation 09/04/2019 10:37 AM EDT [facility] ENDOCERVICAL T-ZONE Transformation zone present 09/04/2019 10:37 AM EDT [facility] EMBEDDED IMAGES 9 10:37 AM EDT [facility] PAP DISCLAIMER The Pap Smear is a screening test that aids in the detection of cervical cancer and cancer precursors. Both false positive and false negative results can occur. The test should be used at regular intervals, and positive results should be confirmed before definitive therapy. Processed using the ThinPrep Registered Phlebotomist Part Time Automated cytology screening device (Domee). 09/04/2019 10:37 AM EDT [facility] Thin Prep ENDOCERVICAL STRUCTURE / Unknown 09/03/2019 11:09 AM EDT 09/03/2019 11:09 AM EDT us Cristi Sosa MD CYTOLOGY ORDERABLES Final Re sult [address] [address] * XR FOOT LEFT AP LATERAL AND [...] acute changes, no fracture dislocation us Jose EISENBERGM IMG DIAGNOSTIC IMAGING MASSIEL FANG Final Result * (ABNORMAL) HEMOGLOBIN AND HEMATOCRIT (05/20/2019 7:29 AM EDT) Hgb 9.8(L) 11.2 - 15.7 g/dL 05/20/2019 7:57 AM EDT [facility] Hct 30.3(L) 34.0 - 45.0 % 05/20/2019 7:57 AM EDT [facility] Blood Venipuncture / Unknown 05/20/2019 7:29 AM EDT 05/20/2019 7:35 AM EDT Prakash Viramontes MD HEMATOLOGY ORDERABLES Final Result Performing Organization Address [facility] Co de Phone Number [facility] [employer], [address], [place] [address] * XR PELVIS (05/19/2019 1:39 PM EDT) [...] of fracture or dislocation. Prakash Viramontes MD IMG DIAGNOSTIC IMAGING ORDER XAVIER Final Result * FL < 1 HOUR (05/19/2019 1:02 PM EDT) Narrative [facility] - 05/19/2019 2:30 PM EDT Fluoroscopy was performed. The radiologist was not in attendance. No permanent images were obtained. This dictation is being made for record keeping purposes. Prakash Viramontes MD IMG FLUOROSCOPY ORDERABLES F inal Result Performing Organization Address [facility] Co de Phone Number [facility] * XR HIP INTRAOPERATIVE RIGHT 2 [...] finding. IMPRESSION: Satisfactory intraoperative imaging. - - us Prakash Viramontes MD IMG DIAGNOSTIC IMAGING ORDER XAVIER Final Result * INTRAOP AIRWAY PLACEMENT (05/19/2019 12:09 PM EDT) Narrative [facility] - 05/19/2019 12:09 PM EDT [...] motion Condition: Atraumatic Insertion attempts: 1 Title: SUPERVISOR TAN ROOM us Eliseo Aguayo SUPERVISOR TAN ROOM [place] ANESTHESIA Final Re sult [facility] [address] [place] [address] * Peripheral Block by Anesthesia (05/19/2019 11:30 AM EDT) Narrative [facility] - 05/19/2019 11:30 AM EDT [...] by ultrasonographc visualization Additional Notes sanchez well Esther Zarate MD ANESTHESIA ORDERABLES Fin al Result Performing Organization Address [facility] de Phone Number [address] [phone] * (ABNORMAL) VITAMIN B12/ FOLIC ACID (05/07/2019 12:11 PM EDT) Vitamin B12 312 211 - 946 pg/mL 05/07/2019 1:48 PM EDT [facility] Folate >16.00(H) 4.50 - 16.00 ng/mL 05/07/2019 1:48 PM EDT [facility] Blood Venipuncture / Unknown 05/07/2019 12:11 PM EDT 05/07/2019 12:11 PM EDT Narrative [facility] - 05/07/2019 1:48 PM EDT Ingestion of del doses of biotin (>5 mg/day) taken within 8 hours of drawing blood sample can interfere with this immunoassay test. Vikas Burnham MD CHEMISTRY ORDERABLES Final Resul t Performing Organization Address [facility] de Phone Number [facility] [address] , [place] [address] * TSH REFLEX (05/07/2019 12:11 PM EDT) TSH Reflex 0.963 0.270 - 4.200 mcIU/mL 05/07/2019 1:32 PM EDT [facility] Blood Venipuncture / Unknown 05/07/2019 12:11 PM EDT 05/07/2019 12:11 PM EDT Narrative [facility] - 05/07/2019 1:32 PM EDT Ingestion of del doses of biotin (>5 mg/day) taken within 8 hours of drawing blood sample can interfere with this immunoassay test. Vikas Burnham MD CHEMISTRY ORDERABLES Final Resul t Performing Organization Address [facility] de Phone Number [facility] [address] , [place] [address] * PT / INR (05/07/2019 12:05 PM EDT) PT 10.7 9.7 - 12.5 second(s) 05/07/2019 1:08 PM EDT [facility] INR 0.95 0.86 - 1.10 no units 05/07/2019 1:08 PM EDT [facility] Comment: Level of Therapy Indications Target INR Range Standard Dose Treatment and prophylaxis of venous 2.0 - 3.0 thrombosis, pulmonary embolism High Dose High risk patients with mechanical 2.5 - 3.5 heart valves Blood VENOUS BLOOD / Unknown Venipuncture / Unknown 05/07/2019 12:05 PM EDT 05/07/2019 12:05 PM EDT Prakash Viramontes MD HEMATOLOGY ORDERABLES Final Result Performing Organization Address [facility] Phone Number [facility] [address] , [place] [address] * MRI PELVIS WO CONTRAST (01/28/2019 1:36 [...] CONTRAST, 01/28/2019. CLINICAL HISTORY: M25.551-Pain in right jjw-FGM-23-CM M25.552-Pain in left kxc-CQJ-01-CM COMPARISON: MRI left hip 07/03/2012. TECHNIQUE: Multiplanar, [...] CONTRAST, 01/28/2019. CLINICAL HISTORY: M25.551-Pain in right ada-MZV-63-CM M25.552-Pain in left ujy-IFR-08-CM COMPARISON: MRI left hip 07/03/2012. TECHNIQUE: Multiplanar, [...] fascia and tendon at neck level, initial kdpgpiool-INV-16-CM S29.019A-Strain of muscle and tendon of unspecified wall of thorax, initial bvplqfvft-XZD-56-CM S39.012A-Strain of muscle, fascia and tendon of lower back, initial qfkadjnue-CRG-27-CM COMPARISON: None PROCEDURE COMMENTS: Multiplanar multiecho MR [...] muscle, fascia and tendon at necklevel, initial dkozkiqsn-TOG-87-CM S29.019A-Strain of muscle and tendon of unspecified wall of thorax,initial dtdbazifd-PXR-07-CM S39.012A-Strain of muscle, fascia and tendon of lower back, initial dyoshydmv-LWN-06-CM COMPARISON: None PROCEDURE COMMENTS: Multiplanar multiecho MR [...] Levoscoliosis. No fracture. us Ming Santamaria MD IM MRI ORDERABLES Final Res ult * MRI [...] fascia and tendon at neck level, initial vbbblebna-URZ-06-CM S29.019A-Strain of muscle and tendon of unspecified wall of thorax, initial bzgnyddos-ZGA-68-CM S39.012A-Strain of muscle, fascia and tendon of lower back, initial djpnrodfm-PIS-84-CM COMPARISON: None. PROCEDURE COMMENTS: Multiplanar multiecho MR [...] muscle, fascia and tendon at necklevel, initial qwtmpygmt-QNP-64-CM S29.019A-Strain of muscle and tendon of unspecified wall of thorax,initial hmxdydfqc-PSB-06-CM S39.012A-Strain of muscle, fascia and tendon of lower back, initial swryzgrwm-ALT-36-CM COMPARISON: None. PROCEDURE COMMENTS: Multiplanar multiecho MR imaging of the thoracicspine. Sagittal imaging of the entire thoracic spine with selected axial imaging. FINDINGS: Moderate dextroscoliosis noted. No subluxation detected. No fractureidentified. No bone marrow edema or suspicious bony lesions detected. Degenerativechange of intervertebral discs noted with multilevel disc space narrowingdesiccation and disc bulge or shallow protrusions noted most prominent at T9-10 zndI39-00. But these disc protrusions are mild. No [...] fascia and tendon at neck level, initial nuieegrnf-DOX-36-CM S29.019A-Strain of muscle and tendon of unspecified wall of thorax, initial hijvozpvz-ALG-07-CM S39.012A-Strain of muscle, fascia and tendon of lower back, initial mkwixenkv-XHU-48-CM COMPARISON: MR cervical spine June 14, 2015 [...] muscle, fasciaand tendon at neck level, initial mkkegdxlv-URK-23-CM S29.019A-Strain of muscle and tendon of unspecified wall of thorax,initial csjunudxt-PYI-57-CM S39.012A-Strain of muscle, fascia and tendon of lower back, initial wjzodjoce-ZVK-60-CM COMPARISON: MR cervical spine June 14, 2015 [...] Moderate to marked left and moderate right X8wxprakiqx narrowing representing potential mechanisms of nerve root impingement.Mild central stenosis. Similar findings on prior. C5/C6: Broad-based discogenic disease with associated this marginspurring and mild indentation of the subarachnoid space. Mild to moderate left J3zvmhjacjh narrowing. C6/C7: Mild discogenic disease with associated [...] 09/18/2018 3:23 PM CLINICAL HISTORY: M54.5-Low back eowx-ZXI-57-CM COMPARISON: 2 view chest October 30, 2016 PROCEDURE COMMENTS: 20.2 mCi of Bx58g-NPK. Whole body bone scanning per protocol. FINDINGS: [...] 09/18/2018 3:23 PM CLINICAL HISTORY: M54.5-Low back fmgt-NVW-25-CM COMPARISON: 2 view chest October 30, 2016 PROCEDURE COMMENTS: 20.2 mCi of Re13h-FOQ. Whole body bone scanningper protocol. FINDINGS: There is multifocal abnormal uptake in the spine, including posteriorelements in the upper and mid thoracic spine as well as upper lumbar spine. Theseare likely degenerative. There is additional degenerative change at the left hip, rightsternoclavicular joint, both knees, and both feet. IMPRESSION: 1. Multifocal axial and appendicular degenerative changes. Ming Santamaria MD [facility] NM ORDERABLES Final Resu lt * CT HEAD WO CONTRAST (09/18/2018 12:49 PM EST) Anatomical Region Laterality Modality Head Computed Tomogra phy 09/18/2018 12:4 9 PM EST Impressions 09/18/2018 1:09 PM EST No acute intracranial abnormality. Narrative 09/18/2018 1:[address] HEAD WO CONTRAST 09/18/2018 12:49 PM CLINICAL HISTORY: S09.90XS-Unspecified injury of head, yrfvkvl-OXQ-36-CM COMPARISON: None. PROCEDURE COMMENTS: Routine noncontrast head [...] 12:49 PM CLINICAL HISTORY: S09.90XS-Unspecified injury of head,nnjjbem-FRT-98-CM COMPARISON: None. PROCEDURE COMMENTS: Routine noncontrast head CT with multiplanar reconstructions. FINDINGS: No evidence of acute stroke, mass, or hemorrhage. No fracture orextra-axial collection. Ventricular size and sulcal pattern is within normal limitsfor age. Included portions of the paranasal sinuses, mastoids, and orbitsunremarkable. IMPRESSION: No acute intracranial abnormality. Ming STEVENSON CT ORDERABLES Final Resu lt * XR [...] 10/30/2016 11:37 AM History: 61 years .Female. W84-Lnbcc-AQY-04-ZW. Compare: February 13, 2006 Procedure Note Javed Fu MD - 10/30/2016 XR CHEST PA AND LATERAL 10/30/2016 11:37 AM History: 61 years .Female. C00-Btxqt-EYB-65-TJ. Compare: February 13, 2006 IMPRESSION: Tortuous thoracic aorta. Moderate degenerative changes thoracic spine. No radiographic evidence of acute cardiac or pulmonary diseaseprocess. Judy Gallego APRN IMG DIAGNOSTIC IMAGING ORDERAB LES Final Result * PULMONARY FUNCTION TEST (10/30/2016 10:41 AM EST) 10/30/2016 10:4 1 AM EST Impressions [facility] - 10/30/2016 10:41 AM EST Good patient effort and understanding. Acceptable results and reproducibility. NORMAL PFTs. Clinical Correlation is Required. This data was interpreted based upon the 2005 ATS/ERS Task Force Position Statement: Interpretative Strategies for Lung Function Tests. This section is an excerpt of the full report. Benita Infante PFT ORDERABLES Final Result [facility] [address] [place] [address] * MM MAMMO DIGITAL SCREENING W CAD BILAT (05/16/2016 3:48 PM EDT) Only the most recent of4 resultswithin the time period is included. Anatomical Region Laterality Modality Breast Bilateral Mammography 05/17/2016 12:3 5 PM EDT Impressions 05/17/2016 1:30 PM EDT : Negative (GZI-Cocodzbh-8) ~ RECOMMENDATION: Routine screening mammogram in 1 [...] the most recent studies of 05-12-15. ~ Beinta Infante IMG MAMMOGRAPHY ORDERABLES Jill l Result [...] radicular symptoms, please consider MRI imaging. Judy Boone Gallego APRN IMG DIAGNOSTIC IMAGING ORDERAB LES Final Result * SCANNED HOLTER MONITOR (03/17/2015 12:24 PM EDT) Anatomical Region Laterality Modality Other 03/17/2015 12:2 4 PM EDT Unknown Unknown IMG HOLTER MONITOR ORDERABLES Fi nal Result * HOLTER MONITOR RECORDING AND ANALYSIS (03/05/2015 9:27 AM EDT) Anatomical Region Laterality Modality Holter/Event Mon itoring Impressions 03/19/2015 11:59 AM EDT : Tracings show Sinus Rhythm 78-125 average 94. PVC's 75377. No VT. PAC's 12. No SVT. Narrative 03/19/2015 11:59 AM EDT INDICATIONS: Chest Pain LENGTH OF TAPE 23 HRS 59 MINS MEDICATION: None listed SLOWEST RATE 76 FASTEST RATE 125 AVERAGE RATE 94 TOTAL PVC'S 94492 TOTAL PAC'S 12 VENTRICULAR TACHYCARDIA SUPRAVENTRICULAR TACHYCARDIA Number of episodes 0 Number of episodes 0 Longest run Beats Longest run Beats Fastest rate Fastest rate OTHER ARRHYTHMIAS: See below. ST & T WAVE CHANGES: See below. SYMPTOMS: See below Benita Infante IMG HOLTER MONITOR ORDERABLES F [...] IMPRESSIONS There are no significant reversible defects. us Javed Curtis MD [facility] [place] CARDIAC ORDERABLES Final Result * ST STRESS TEST LEXISCAN (11/29/2014 12:01 PM EST) Anatomical Region Laterality Modality Cardiac Stress T esting 11/29/2014 11:3 0 AM EST Impressions 12/02/2014 12:45 PM EST Exercise ECG Report [facility] Interpretive [...] MD - 12/02/2014 IMPRESSION Exercise ECG Report [facility] Interpretive Statements Stress Test Lexiscan Reason for [...] esophageal dilation. Fluoroscopy time: 1.2 minutes FINDINGS: Manager Casino film unremarkable. Esophagus normal in appearance. Normal esophageal motility. No esophageal mass or stricture. No hiatal hernia. No gastroesophageal reflux was seen. Procedure Note Kenny Welch MD - 09/02/2013 Esophagram, 09/02/2013 HISTORY: Chest pain, status post recent endoscopy with esophagealdilation. Fluoroscopy time: 1.2 minutes FINDINGS: Manager Casino film unremarkable. Esophagus normal in appearance. Normalesophageal [...] AM EDT) 08/12/2013 7:30 AM EDT Impressions [facility] - 08/12/2013 7:47 AM EDT Normal stomach. Normal duodenum. Normal mucosa in the whole esophagus. (Dilation). Plan: Follow-up as needed This section is an excerpt of the full report, which can be found by clicking the hyperlink. us Dennis Mak MD GI PROCEDURE ORDERABLES Fin al Result [facility] [address] [place] [address] * [facility] (08/12/2013 12:00 AM EDT) CPT Code(s) [facility] [place] Comment: [id number] [employer] assumes no responsibility for the accuracy of CPT codes provided which are for informational purposes only. CPT codes are payor specific and CPT coding is the sole responsibility of the billing entity. 08/12/2013 08/12/2013 11: 40 PM EDT Narrative [facility] - 08/13/2013 4:26 PM EDT FASTING: UNKNOWN Resulting Agency Comment Performing Organization Information: Site ID: Name: [facility] Address: [address] [place] [id number] Director: Gerhard Hayes MD PhD us Dennis Mak MD [facility]-HEMAT[facility] ORDERABLES Final Result [facility] [place] [address], [facility] * TISSUE PATHOLOGY-[facility] (08/12/2013 12:00 AM EDT) Clinical Information ICD9 code (none given) [facility] Pathologist Review [facility] Comment: Neal Isabel M.D., Board Certified, [...] in cassette A. Gross exam(s) performed at: [facility] [address] [id number] Toaster Operator: GERHARD HAYES MD PHD Specimen A Diagnosis [facility] Comment: - Benign hyperplastic polyps. [id number] Specimen B Clinical Impression Polyp in the sigmoid colon, grade 1 internal hemorrhoids [facility] Specimen B Source [facility] Comment:Sigmoid polyp Specimen B Procedure [facility] Comment:Biopsy/ies Specimen B Gross Description [facility] Comment: Container B is labeled sigmoid polyp and consists of a single mcgovern 4 mm soft fragment of tissue. Filtered and entirely submitted in cassette B. TJ Specimen B Diagnosis [facility] Comment: - Tubular adenoma. [id number] 08/12/2013 08/12/2013 11: 40 PM EDT Narrative [facility] - 08/13/2013 4:26 PM EDT FASTING: UNKNOWN Resulting Agency Comment Performing Organization Information: Site ID: [id number] Name: [facility] Address: [address] [place] [address], [place] [address] Director: Neal Isabel MD Dennis Mak MD [facility] ORDERABLES Final Result Performing Organization Address City/[facility] Co de Phone Number [facility] [address] [place] [address] [place] [address]RUST * [facility] COLONOSCOPY (08/12/2013 12:00 AM EDT) 08/12/2013 Impressions [facility] - 08/12/2013 7:44 AM EDT Polyps (3 mm to 4 mm) in the transverse colon. (Polypectomy). Polyp (3 mm) in the sigmoid colon. (Polypectomy). Grade 1 internal hemorrhoids. Plan: Colonoscopy in 5 years. This section is an excerpt of the full report, which can be found by clicking the hyperlink. Dennis Mak MD GI PROCEDURE ORDERABLES Fin al Result [facility] [address] [place] [address] * DIFFERENTIAL (08/11/2013 9:50 AM EDT) Neut Percent 46.7 % [facility] Lymph Percent 42.7 % [facility] Lagrange Percent 7.2 % [facility] Eos Percent 3.1 % [facility] Baso Percent 0.3 % [facility] Neut# 2.4 1.8 - 7.7 x10(3)/[facility]L [facility] Lymph# 2.2 0.6 - 4.8 x10(3)/[facility] Lagrange# 0.4 0.0 - 1.3 x10(3)/[facility] Eos# 0.2 0.0 - 0.5 x10(3)/[facility] Baso# 0.0 0.0 - 0.2 x10(3)/[facility] Blood specimen (specimen) 08/11/2013 9:50 AM EDT 08/11/2013 8:52 PM EDT us Moustapha Shaffer DPM HEMATOLOGY ORDERABLES Final R esult [facility] [address] [place] [address] * MM MOBILE MAMMO DIGITAL SCREEN W CAD TRAMAINE (07/16/2012 1:11 PM EDT) Anatomical Region Laterality Modality Breast Mammography 07/18/2012 10:5 3 AM EDT Impressions 07/18/2012 1:41 PM EDT : No radiographic evidence of malignancy (VZL-Zimzbsxj-7) ~ RECOMMENDATION: Routine screening mammogram in 1 [...] ~ IMPRESSION: No radiographic evidence of malignancy (HCD-Nvjqdabd-7) ~ RECOMMENDATION: Routine screening mammogram in 1 [...] was reviewed by a Radiologist and CAD. [facility] Evangelista Infante [facility] ORDERABLES Jill l Result * MRI HIP LEFT WO CONTRAST [...] disease about the left hip. There is tokn-nn-ovuo articulation with cortical remodeling. There is collapse [...] degenerative disease about the lefthip. There is msfx-pd-dxee articulation with cortical remodeling. There is collapse [...] views. IMPRESSION- No radiographic evidence of malignancy (FHS-Pvyfgbcc-5) RECOMMENDATION- Routine screening mammogram in 1 year. * The patient with a palpable abnormality, unexplained by breast imaging, should be managed on clinical basis by the attending physician. * Breast imaging has a false negative rate of 15%. * The patient was notified by mail of the results of this examination. Assistive Technology Specialistpepe Garcia Physician- ERNST WATSON MD Released Date Time- 07/06/09 1134 Procedure Note Ernst Watson - 01/19/2010 Procedure-MM DIGITAL DIAG UNILAT MM DIGITAL DIAG UNILAT CC and MLO view(s) were taken of the left breast. No abnormality is seen on additional views. IMPRESSION- No radiographic evidence of malignancy (TDT-Aljumvkx-4) RECOMMENDATION- Routine screening mammogram in 1 year. * The patient with a palpable abnormality, unexplained by breast imaging, should be managed on clinical basis by the attending physician. * Breast imaging has a false negative rate of 15%. * The patient was notified by mail of the results of this examination. Jenni Garcia Physician- ERNST WATSON MD Released Date Time- 07/06/09 1134 us Benita Infante [facility] HISTORICAL Fin al Result [...] dated 03-23-08 IMPRESSION- Incomplete-need additional imaging evaluation (KTP-Ypfalciq-2) RECOMMENDATION- Special view mammogram of the left breast. * The patient with a palpable abnormality, unexplained by breast imaging, should be managed on clinical basis by the attending physician. * Breast imaging has a false negative rate of 15%. * The patient was notified by mail of the results of this examination. The mammogram was reviewed by a Radiologist and CAD. Assistive Technology Specialist- RODRÍGUEZ GIBBS Reading Physician- RAJ ZHANG MD Released Date Time- 07/01/09 1140 Procedure Note Raj Zhagn - 01/19/2010 Procedure-MM DIG SCR TRAMAINE PANEL [...] dated 03-23-08 IMPRESSION- Incomplete-need additional imaging evaluation (RZG-Jhmeurko-4) RECOMMENDATION- Special view mammogram of the left breast. * The patient with a palpable abnormality, unexplained by breast imaging, should be managed on clinical basis by the attending physician. * Breast imaging has a false negative rate of 15%. * The patient was notified by mail of the results of this examination. The mammogram was reviewed by a Radiologist and CAD. Assistive Technology Specialist- RODRÍGUEZ GIBBS Reading Physician- RAJ ZHANG MD Released Date Time- 07/01/09 1140 us R Evangelista Infante [facility] al Result * MR LUMBAR SPINE W/O [...] due to spur projecting from the facet. Assistive Technology Specialist- RADHA Garcia Physician- ILANA SHI MD Released [...] due to spur projecting from the facet. Assistive Technology Specialist- RADHA Garcia Physician- ILANA SHI MD Released Date Time- 04/19/091927 Michaela Palacio MD [facility] HISTORICAL Fi nal Result * EK EKG REG (11/27/2008 2:26 PM EST) Anatomical Region Laterality Modality Other 11/27/2008 2:26 PM EST Narrative 11/28/2008 11:16 AM EST Sinus rhythm with PVC(s) Anterior T wave changes are nonspecific Borderline ECG No previous records available at this time Clinical correlation is recommended. Assistive Technology Specialist- FRANKLIN GARCIA M.D. Released Date Time- 11/28/081115 Procedure Note Franklin Garcia - 01/19/2010 Sinus rhythm with PVC(s) Anterior T wave changes are nonspecific Borderline ECG No previous records available at this time Clinical correlation is recommended. Laci- FRANKLIN GARCIA M.D. Released Date Time- 11/28/081115 Eliseo Martel MD [facility]IST[facility] Final Result * XR FOOT & TOES (06/29/2008 3:01 PM EDT) Anatomical Region Laterality Modality Other 06/29/2008 3:01 PM EDT Narrative 06/29/2008 7:17 PM EDT Right foot and toes, 06/29/2008- Indication- Pain. Three views right foot and toes show midfoot degenerative change, hallux valgus, bunion formation, and hallux MTP degenerative change. No acute fracture. Assistive Technology Specialist- ERICA Ellis LOLLY Garcia Physician- CONNOR PAYTON MD Released Date Time- 06/29/082025 Procedure Note Connor Payton - 01/19/2010 Right foot and toes, 06/29/2008- Indication- Pain. Three views right foot and toes show midfoot degenerative change, hallux valgus, bunion formation, and hallux MTP degenerative change. No acute fracture. Assistive Technology Specialist- ERICA CHUNG Reading Physician- CONNOR PAYTON MD Released Date Time- 06/29/082025 R Evangelista Infante [facility] al Result * XR WRIST (11/05/2006 10:00 AM EST) Anatomical Region Laterality Modality Other 11/05/2006 10:0 0 AM EST Narrative 11/05/2006 11:05 AM EST FOUR VIEWS OF RIGHT WRIST - 11/05/06 History- Pain in the scaphoid region. No injury. There is no evidence of fracture or dislocation. No significant arthritic process is seen. Assistive Technology Specialist- RACHID TURNER Reading Radiologist- CHANA JASSO MD Released Date Time- 11/05/06 1309 Procedure Note Chana Jasso - 01/18/2010 FOUR VIEWS OF RIGHT WRIST - 11/05/06 History- Pain in the scaphoid region. No injury. There is no evidence of fracture or dislocation. No significant arthritic process is seen. Assistive Technology Specialist- RACHID Garcia Radiologist- CHANA JASSO MD Released Date Time- 11/05/06 1309 R Evangelista [place] [facility] al Result * FL STOMACH/ESOPHAGUS CARBON BRUSHER ASSEMBLER (10/18/2006 8:00 AM EST) Anatomical Region Laterality Modality Other 10/18/2006 8:00 AM EST Narrative 10/18/2006 9:36 AM EST WAITING Upper GI series on 10/18/2006. 1. [...] other abnormality in the upper gastroenteric tract. Assistive Technology Specialist- LYDIA Garcia Radiologist- KAREN REYES MD Released [...] other abnormality in the upper gastroenteric tract. Assistive Technology Specialist- LYDIA FREGOSO Reading Radiologist- KAREN REYES MD Released Date Time- 10/18/06 1502 [facility] Infante [facility] HISTORICAL Fin al Result * MM [...] compared with prior studies. IMPRESSION- Benign finding (LWT-Asnvygbj-8) RECOMMENDATION- Routine screening mammogram in 1 year. * The patient with a palpable abnormality, unexplained by breast imaging, should be managed on clinical basis by the attending physician. * Breast imaging has a false negative rate of 15%. * The patient was notified by mail of the results of this examination. The mammogram was reviewed by a Radiologist and CAD. Assistive Technology Specialist- RALPH Garcia Radiologist- JONATHAN BANSAL MD Released [...] compared with prior studies. IMPRESSION- Benign finding (UPO-Srkphhfn-5) RECOMMENDATION- Routine screening mammogram in 1 year. * The patient with a palpable abnormality, unexplained by breast imaging, should be managed on clinical basis by the attending physician. * Breast imaging has a false negative rate of 15%. * The patient was notified by mail of the results of this examination. The mammogram was reviewed by a Radiologist and CAD. Assistive Technology Specialist- RALPH Garcia Radiologist- JONATHAN BANSAL MD Released Date Time- 09/03/06 1422 Benita Infante [facility]ISTORICAL Fin al Result * XR [...] dorsal spine. Impression- No acute cardiopulmonary disease. Assistive Technology Specialist- RADHA SWANSON Reading Radiologist- MAURICE NOONAN MD [...] dorsal spine. Impression- No acute cardiopulmonary disease. Assistive Technology Specialist- RADHA SWANSON Reading Radiologist- MAURICE NOONAN MD Released Date Time- 02/13/061653 Michaela Palacio MD [facility] nal Result Visit Diagnoses Diagnosis Start Date [...] limb 04/04/2025 Acute non-recurrent maxillary sinusitis 04/04/2025 Rheumatoid arthritis of multiple sites 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 (HCC) Rheumatoid arthritis 08/05/2025 Drug therapy Encounter for other specified aftercare 08/05/2025 Primary generalized (osteo)arthritis Generalized osteoarthrosis, involving multiple sites 08/05/2025 Fibromyalgia Mylagia and myositis, unspecified 08/05/2025 Hallux valgus (acquired) 08/17/2013 Psoriatic arthritis (HCC) [...] specified disorders of liver 06/02/2020 Care Teams Mill Tender Washing Relationship Specialty Start Date End Date Benita Infante [address] [place] [address] [address] [place] [address] PCP - General 07/10/10 Dennis Mak MD [facility] [address] [place] [address] Internal Medicine-Gastroenterology 07/14/13 Michaela Palacio MD [address] [place] [id number] Internal Medicine-Rheumatology 02/20/23
--- NOTE | 2025-09-21 10:19 | XR_ITS ---
FINAL REPORT CLINICAL HISTORY: SOB COMPARISON: None FINDINGS: PA and lateral views of the chest were obtained. No acute pulmonary density is evident. There is no evidence of effusion or other pleural disease. The mediastinum has a normal appearance. The cardiac silhouette is unremarkable. The thoracic aorta is extremely tortuous. IMPRESSION: No acute findings. Reviewed, Interpreted and Dictated by Lisa Jimenez MD Transcribed by Victorina Key Authenticated and [facility]
--- NOTE | 2025-09-21 10:45 | ECG_ITS ---
APPROVED REPORT Exam: Resting ECG HR:75 bpm ECG Measurements Heart Rate 75 AXES VT 133 P 54 QRSd 125 QRS 16 QT 410 T 42 QTc 438 Conclusion SINUS RHYTHM RIGHT BUNDLE BRANCH BLOCK [120+ ms QRS DURATION, UPRIGHT V1, 40+ ms S IN I/aVL/V4/V5/V6] ABNORMAL ECG UNCONFIRMED REPORT Electronically signed by : Demetrio Hanson MD 09/22/2025 07:54:43
[2025-09-21 11:02] LABS: Hematocrit 35.4 % (37.0-47.0); Hemoglobin 11.7 g/dL (12.2-16.2); Immature Granulocytes % 0.3 %; Mean Corpuscular HGB Conc 33.1 g/dL (31.8-35.4); Mean Corpuscular Hemoglobin 31.9 pg (27.0-31.2); Mean Corpuscular Volume 96.5 fl (81-99); Nucleated Red Blood Cells % 0 %; Platelet Count 370 K/mm3 (142-424); Red Blood Count 3.67 M/mm3 (4.20-5.40); Red Cell Distribution Width-SD 45.9 fL; White Blood Count 5.8 K/mm3 (4.8-10.8)
[2025-09-21 11:10] LABS: Alanine Aminotransferase 17 U/L (12-78); Albumin Level 3.9 g/dl (3.5-5.0); Albumin/Globulin Ratio 1.1 (1.1-1.8); Alkaline Phosphatase 83 U/L (38-126); Anion Gap 7.0 mEq/L (5-15); Aspartate Amino Transferase 28 U/L (14-36); Bilirubin,Total 0.4 mg/dl (0.2-1.3); Blood Urea Nitrogen 14 mg/dl (7-17); Calcium 9.4 mg/dl (8.4-10.2); Carbon Dioxide 28 mmol/L (22.0-30.0); Chloride 105 mmol/L (98-107); Creatinine Clearance Estimated 63 mL/min (50-200); Creatinine,Serum 0.70 mg/dl (0.52-1.04); Estimated Glomerular Filt Rate 83 ml/min (>60); GFR (African American) 100 ML/MIN (>60); Globulin 3.5 g/dL (1.3-3.2); Glucose 92 mg/dl (74-100); Potassium 4.0 mmoL/L (3.5-5.1); Sodium 136 mmol/L (136-145); Total Protein,Serum 7.4 g/dl (6.3-8.2)
[2025-09-21 11:15] LABS: C-Reactive Protein 1.8 mg/L (0-4)
[2025-09-21 11:55] LABS: 25-OH Vitamin D, Total 48.3 ng/mL (30-100)
== END 2025-09-21 23:59 | disposition home or self-care (01) ==
LOC: PREOP 09:55
PROVIDERS: PCP Family Medicine; Visit Provider Podiatrist
DX: Z01.810 Encounter for preprocedural cardiovascular examination (principal); Z01.811 Encounter for preprocedural respiratory examination; Z01.812 Encounter for preprocedural laboratory examination; I45.10 Unspecified right bundle-branch block; R94.31 Abnormal electrocardiogram [ECG] [EKG]; R06.02 Shortness of breath
CPT/HCPCS: 71046; 80053; 82306; 85025; 85651; 86140; 93005

== ENCOUNTER 2025-09-27 12:52 | Outpatient (CLI) | payer MEDICARE, MEDICAID, SELFPAY ==
[2025-09-27 13:28] LABS: Hematocrit 37.2 % (37.0-47.0); Hemoglobin 12.4 g/dL (12.2-16.2); Immature Granulocytes % 0.2 %; Mean Corpuscular HGB Conc 33.3 g/dL (31.8-35.4); Mean Corpuscular Hemoglobin 32.0 pg (27.0-31.2); Mean Corpuscular Volume 96.1 fl (81-99); Nucleated Red Blood Cells % 0 %; Platelet Count 335 K/mm3 (142-424); Red Blood Count 3.87 M/mm3 (4.20-5.40); Red Cell Distribution Width-SD 45.6 fL; White Blood Count 6.0 K/mm3 (4.8-10.8)
[2025-09-27 14:11] LABS: Iron 75 ug/dL (37-170)
[2025-09-27 14:23] LABS: Total Iron Binding Capacity 247 ug/dL (265-497)
[2025-09-27 14:48] LABS: Ferritin 56.2 ng/ml (11.1-264)
== END 2025-09-27 23:59 | disposition home or self-care (01) ==
LOC: LAB 12:53
PROVIDERS: PCP Family Medicine; Visit Provider Nurse Practitioner Family
DX: D64.9 Anemia, unspecified (principal)
CPT/HCPCS: 36415; 82728; 83540; 83550; 85025